=== PATIENT | male | born 1935 | race Two or more races ===

== ENCOUNTER 2018-11-13 12:16 | Inpatient (IN) | payer MEDICARE, OTHER ==
[~2018-11-13] VITALS: Ht 160 cm; Wt 64.1 kg
[~2018-11-13 12:16] MED LIST: ACETAMINOP160 MG/54 ORAL; ASPIRIN81 MG ORAL; ATIVAN0.5 MG ORAL; ATORVASTATIN CA40 MG ORAL; CALCIUM500 M3 PO; ELIQUIS2.5 MG PO; ISOSORBIDE DINIT5 MG ORAL; LEVOFLOXACIN500 MG ORAL; MIRTAZAPINE7.5 MG ORAL; MULTIPLE VITAM1 EAC6 PO; PHENYTOIN100 MG/4 M ORAL; PROTONIX40 MG ORAL; TAMSULOSIN HCL0.4 MG ORAL
--- NOTE | 2018-11-13 12:40 | NUR ---
ED Nurse Note:pt. was BIBA from SNF due to coffie ground emesis, VSS, pt is nonverbal not alert but arosable, placed on diagnostic cardiac sonographer,iv fluids are given, skin is intact
--- NOTE | 2018-11-13 12:42 | Emergency Room Report ---
History of Present Illness General Chief Complaint: Vomiting Source: Medical Record, EMS Present Illness HPI This patient is brought in by EMS from a [facility] facility. Patient has a history of CVA with hemiplegia. He has multiple chronic medical problems to include dementia, depression, COPD, GERD. The patient is nonverbal at baseline. He presents for an episode of coffee-ground emesis. Is no other history of present illness available. Allergies: Coded Allergies: No Known Allergies (Unverified , 02/29/16) Patient History Past Medical History: see triage record, NE, CAD, COPD, GERD, CVA/TIA, dementia Social History: Denies: smoking, alcohol use, drug use Reviewed Nursing Documentation: PMH: Agreed; PSxH: Agreed Nursing Documentation-PMH Hx Cardiac Problems: Yes Hx COPD: Yes Hx Cancer: No Hx Gastrointestinal Problems: No Hx Cerebrovascular Accident: Yes - left side weakness Hx Seizures: Yes Review of Systems All Other Systems: limited Physical Exam Vital Signs Date Time Temp Pulse Resp B/P (MAP) Pulse Ox O2 Delivery O2 Flow Rate FiO2 11/13/18 12:10 98.1 120 20 112/59 (76) 97 Room Air Sp02 EP Interpretation: reviewed, normal General Appearance: no apparent distress, alert, GCS 15, non-toxic, Chronically Ill Head: normocephalic, atraumatic ENT: normal pharynx, no angioedema Neck: normal inspection Respiratory: chest non-tender, lungs clear, no respiratory distress, no retraction, no accessory muscle use, speaking full sentences, other - Diminished BS bilaterally Cardiovascular #1: no edema, tachycardia, systolic murmur Gastrointestinal: soft, non-distended, no guarding, no rebound, other - G-tube Rectal: deferred Musculoskeletal: back normal, other - At baseline Neurologic: alert, other - At baseline, hx of CVA w/ hemiplegia Psychiatric: depressed affect Skin: other - See RN skin exam Medical Decision Making Diagnostic Impression: Primary Impression: Elevated troponin Additional Impressions: Coffee ground emesis Junctional rhythm ER Course This patient presents from a [facility] facility for concern of coffee- ground emesis. There was no further episodes observed here in the emergency department. The patient did have an elevated troponin. The patient was not anemic. Patient at baseline is chronically ill. It is difficult to assess whether this patient truly has an upper GI bleed. Patient was also noted to be in a junctional rhythm versus a first-degree AV block with a buried P wave. There was no pathologic arrhythmia in the emergency department. Patient is admitted for further monitoring, evaluation and treatment. Laboratory Tests Test 11/13/18 12:00 11/13/18 12:40 Sodium Level 137 MMOL/L (136-145) Potassium Level 5.2 MMOL/L (3.5-5.1) H Chloride Level 100 MMOL/L (98-107) Carbon Dioxide Level 22 MMOL/L (21-32) Anion Gap 15 mmol/L (5-15) Blood Urea Nitrogen 20 mg/dL (7-18) H Creatinine 0.9 MG/DL (0.55-1.30) Estimate Glomerular Filtration Rate mL/min (>60) Glucose Level 101 MG/DL (74-106) Calcium Level 9.4 MG/DL (8.5-10.1) Total Bilirubin 0.7 MG/DL (0.2-1.0) Aspartate Amino Transferase (AST) 50 U/L (15-37) H Alanine Aminotransferase (ALT) 42 U/L (12-78) Alkaline Phosphatase 184 U/L (46-116) H Troponin I 0.061 ng/mL (0.000-0.056) Total Protein 9.1 G/DL (6.4-8.2) H Albumin 4.0 G/DL (3.4-5.0) Globulin 5.1 g/dL Albumin/Globulin Ratio 0.8 (1.0-2.7) L Lipase 313 U/L (73-393) White Blood Count 11.8 K/UL (4.8-10.8) H Red Blood Count 5.51 M/UL (4.70-6.10) Hemoglobin 16.5 G/DL (14.2-18.0) Hematocrit 50.7 % (42.0-52.0) Mean Corpuscular Volume 92 FL (80-99) Mean Corpuscular Hemoglobin 29.8 PG (27.0-31.0) Mean Corpuscular Hemoglobin Concent 32.5 G/DL (32.0-36.0) Red Cell Distribution Width 13.9 % (11.6-14.8) Platelet Count 225 K/UL (150-450) Mean Platelet Volume 6.8 FL (6.5-10.1) Neutrophils (%) (Auto) % (45.0-75.0) Lymphocytes (%) (Auto) % (20.0-45.0) Monocytes (%) (Auto) % (1.0-10.0) Eosinophils (%) (Auto) % (0.0-3.0) Basophils (%) (Auto) % (0.0-2.0) Differential Total Cells Counted 100 Neutrophils % (Manual) 87 % (45-75) H Lymphocytes % (Manual) 6 % (20-45) L Monocytes % (Manual) 2 % (1-10) Eosinophils % (Manual) 1 % (0-3) Basophils % (Manual) 1 % (0-2) Band Neutrophils 3 % (0-8) Platelet Estimate Adequate Platelet Morphology Normal Red Blood Cell Morphology Normal Prothrombin Time 10.6 SEC (9.30-11.50) Prothrombin Time INR 1.0 (0.9-1.1) PTT 23 SEC (23-33) Urine Color Yellow Urine Appearance Cloudy Urine pH 7 (4.5-8.0) Urine Specific Hertel 1.015 (1.005-1.035) Urine Protein 1+ (NEGATIVE) H Urine Glucose (UA) Negative (NEGATIVE) Urine Ketones Negative (NEGATIVE) Urine Blood 5+ (NEGATIVE) H Urine Nitrite Negative (NEGATIVE) Urine Bilirubin Negative (NEGATIVE) Urine Urobilinogen 1 MG/DL (0.0-1.0) H Urine Leukocyte Esterase 1+ (NEGATIVE) H Urine RBC Tntc /HPF (0 - 0) H Urine WBC 5-10 /HPF (0 - 0) H Urine Squamous Epithelial Cells Occasional /LPF Urine Amorphous Sediment Many /LPF (NONE) H Urine Bacteria Few /HPF (NONE) EKG Diagnostic Results Rate: tachycardiac Rhythm: other - Junctional vs 1st degree AV block with buried p-waves. ST Segments: no acute changes Rhythm Strip Diag. Results EP Interpretation: yes Rate: 110's Rhythm: other - 1st degree AV block vs junctional rhythm. Chest X-Ray Diagnostic Results Chest X-Ray Diagnostic Results : Chest X-Ray Ordered: Yes # of Views/Limited/Complete: 1 View Indication: Other EP Interpretation: Yes Interpretation: no acute cardiopulmonary disease Impression: No acute disease Electronically Signed by: Loretta Stein DO. Last Vital Signs Date Time Temp Pulse Resp B/P (MAP) Pulse Ox O2 Delivery O2 Flow Rate FiO2 11/13/18 12:10 98.1 120 20 112/59 (76) 97 Room Air Disposition: ADMITTED INPATIENT Condition: Serious Loretta Stein DO Nov 13, 2018 12:42
[2018-11-13] MEDS ORDERED: Ipratropium 0.02% Inh Soln 2.5ml UD HHN ONE (12:45)
[2018-11-13] MEDS ORDERED: Albuterol ud Inhalation HHN ONE (12:45)
--- NOTE | 2018-11-13 12:52 | NUR ---
ED Nurse Note:blood and urine sent to labs
[2018-11-13 12:57] LABS: ANION GAP 15 mmol/L (5-15); BLOOD UREA NITROGEN 20 mg/dL (7-18); CALCIUM 9.4 MG/DL (8.5-10.1); CARBON DIOXIDE 22 MMOL/L (21-32); CHLORIDE 100 MMOL/L (98-107); CREATININE 0.9 MG/DL (0.55-1.30); POTASSIUM 5.2 MMOL/L (3.5-5.1); SODIUM 137 MMOL/L (136-145)
[2018-11-13 13:02] LABS: APPEARANCE,URINE CLOUDY; BILIRUBIN, URINE NEGATIVE (NEGATIVE); GLUCOSE, URINE (UA) NEGATIVE (NEGATIVE); KETONES,URINE NEGATIVE (NEGATIVE); LEUKOCYTE ESTERASE ,URINE 1+ (NEGATIVE); NITRITE,URINE NEGATIVE (NEGATIVE); PH,URINE 7 (4.5-8.0); PROTEIN,URINE 1+ (NEGATIVE); UROBILINOGEN,URINE 1 MG/DL (0.0-1.0)
[2018-11-13 13:02] LABS: ALANINE AMINOTRANSFERASE 42 U/L (12-78); ALBUMIN/GLOBULIN RATIO 0.8 (1.0-2.7); ALKALINE PHOSPHATASE 184 U/L (46-116); ASPARTATE AMINO TRANSFERASE 50 U/L (15-37); BILIRUBIN,TOTAL 0.7 MG/DL (0.2-1.0)
[2018-11-13 13:05] LABS: COLOR,URINE YELLOW
[2018-11-13 13:08] LABS: HEMATOCRIT 50.7 % (42.0-52.0); HEMOGLOBIN 16.5 G/DL (14.2-18.0); MEAN CORPUSCULAR VOLUME 92 FL (80-99); PLATELET COUNT 225 K/UL (150-450); RED BLOOD COUNT 5.51 M/UL (4.70-6.10); RED CELL DISTRIBUTION WIDTH 13.9 % (11.6-14.8); WHITE BLOOD COUNT 11.8 K/UL (4.8-10.8)
[2018-11-13 13:34] VITALS: BP 107/59
[2018-11-13] MEDS ORDERED: VITAMIN D1000 UNI1 ORAL (13:38)
[2018-11-13] MEDS ORDERED: TERBINAFINE HC250 MG GT (13:38)
[2018-11-13] MEDS ORDERED: ASCORBIC ACID500 MG GT (13:38)
[2018-11-13] MEDS ORDERED: IPRATROPIU0.2 MG/1 M HHN (13:38)
[2018-11-13] MEDS ORDERED: LEVETIRACE100 MG/1 M GT (13:38)
[2018-11-13] MEDS ORDERED: COLACE100 MG/10 GT (13:38)
[2018-11-13] MEDS ORDERED: cefTRIAXone 1 GM in NS 55 ML IVPB ONE (15:00)
--- NOTE | 2018-11-13 15:20 | Diagnostic Imaging Report ---
Indication: Dyspnea Comparison: 03/02/2016 A single view chest radiograph was obtained. Findings: Pulmonary vascular congestion is present. Lung volumes are low. Mild cardiomegaly noted. Mechanical heart valve and sternotomy noted. IMPRESSION: Pulmonary vascular congestion
[2018-11-13 15:46] VITALS: BP 116/61
--- NOTE | 2018-11-13 15:56 | NUR ---
ED Nurse Note:called report to edgar Leahy RN, pt. taken up stairs
[2018-11-13] MEDS ORDERED: Acetaminophen 650 MG SUPP RECTAL PRN ×2 (16:30→16:45)
[2018-11-13] MEDS ORDERED: Albuterol/Ipratropium 3ml neb HHN PRN (16:30)
[2018-11-13] MEDS ORDERED: Acetaminophen 650mg/20.3ml GT PRN (16:30)
[2018-11-13] MEDS ORDERED: Ipratropium 0.02% Inh Soln 2.5ml UD HHN PRN (16:30)
[2018-11-13] MEDS ORDERED: Acetaminophen 650mg/20.3ml ORAL PRN (16:30)
--- NOTE | 2018-11-13 16:49 | NUR ---
nurse note received patient @ 1620. Non verbal, non-alert. Makes noise to sternal rub. Does not follow command. Breathing even and unlabored on 2L NC. Skin intact, non-blanching sacrum and BL heels noted. Perform skin assessment with RN Jaylin. GT present. NPO. temp 100.3, Dr. Ramires aware. No belongings. Incontinent. Provided comfort measures. Call light in reach.
[2018-11-13 16:54] VITALS: BP 113/69
--- NOTE | 2018-11-13 19:50 | NUR ---
NURSE NOTES: Pt received- Non verbal, non-alert. Makes noise to sternal rub. Does not follow commands. Breathing even and unlabored on 2L NC. Skin intact, non-blanching sacrum and BL heels noted. GT present- clamped. Incontinent- will insert catheter as ordered. Provided comfort measures. Call light in reach.
--- NOTE | 2018-11-13 20:00 | History and Physical Report ---
DATE OF ADMISSION: 11/13/2018 CHIEF COMPLAINT: Coffee-ground emesis. HISTORY OF PRESENT ILLNESS: This is a 83-year-old male under the care of Dr. Susanne Robles at [facility] who was sent via 911 due to coffee-ground emesis. The patient is nonverbal due to previous strokes. He was seen in the ER and admitted to my service by Dr. Susanne Robles, his primary care physician. PAST MEDICAL HISTORY: 1. Status post CVA. 2. Coronary artery disease. 3. Status post MA. 4. COPD. 5. Gastroesophageal reflux disease. 6. Organic brain syndrome. 7. Seizure disorder. MEDICATIONS: Medications from the detention, Tylenol, Eliquis, ascorbic acid, baby aspirin, atorvastatin, calcium carbonate, cholecalciferol, sodium docusate, ipratropium, isosorbide, Keppra, Levaquin, Ativan, Remeron, multivitamins, Protonix, Dilantin, tamsulosin, terbinafine. ALLERGIES: No known drug allergies. FAMILY HISTORY: Unable to obtain due to mental status. SOCIAL HISTORY: Unable to obtain due to mental status. REVIEW OF SYSTEMS: Unable to obtain due to mental status. PHYSICAL EXAMINATION: GENERAL: This is an elderly male, who is in no acute distress. VITAL SIGNS: Blood pressure 116/61, pulse 105 sinus tachycardia, respirations 18, and temperature 98.1 axillary. HEENT: Head is normocephalic and atraumatic. Pupils are equal, round, and reactive to light and accommodation. NECK: Supple. Trachea midline. There is no lymphadenopathy or thyromegaly. LUNGS: Few bilateral rhonchi. HEART: Tachycardia. S1 and S2. No rubs, murmurs, or gallops. ABDOMEN: Distended, soft, nontender. He has a G-tube. EXTREMITIES: Notable for multiple contractures. There was no clubbing, cyanosis, or edema. NEUROLOGICAL: He is obtunded. There were no gross focal findings. He has increased rigidity. LABORATORY AND ANCILLARY DATA: CBC, white count 31801, hematocrit 50.7. Chemistry, sodium 137, potassium 5.2, BUN 20, creatinine 0.9, alkaline phosphatase 184. Urinalysis, 1+ protein, 5+ blood, sediment shows too many rbc's, 5 to 10 white blood cells, many amorphous sediments. Imaging report, pulmonary vascular congestion. EKG shows a first-degree AV block with buried T-waves which looks like junctional versus third-degree AV block. ASSESSMENT: 1. Acute gastroesophagitis. 2. Rule out junctional tachycardia. 3. Status post CVA. 4. Coronary artery disease. 5. Status post MA. 6. COPD. 7. Gastroesophageal reflux disease. 8. Organic brain syndrome. 9. Seizure disorder. PLAN: 1. Keep NPO. 2. IV fluid rehydration. 3. The patient is polypharmacy so adjust the patient's medications. 4. Consider GI consult. Alissa Camarillo M.D. DR: Giovanna JOB#: [id number] CC:
[2018-11-13] MEDS: Heparin 5000 units/ml inj SUBQ SCH ×2 (21:00→21:56)
[2018-11-13] MEDS: levETIRAcetam 500mg/5ml Liquid GT SCH (21:00)
[2018-11-13 21:28] VITALS: BP 138/72
[2018-11-13] MEDS: Atorvastatin 20mg tab GT SCH (21:55)
[2018-11-13] MEDS: Tamsulosin 0.4mg cap ORAL SCH (21:55)
[2018-11-14] VITALS: BP 132/59
[2018-11-14 06:25] LABS: ANION GAP 10 mmol/L (5-15); BLOOD UREA NITROGEN 17 mg/dL (7-18); CALCIUM 8.3 MG/DL (8.5-10.1); CARBON DIOXIDE 23 MMOL/L (21-32); CHLORIDE 104 MMOL/L (98-107); CREATININE 0.8 MG/DL (0.55-1.30); POTASSIUM 3.9 MMOL/L (3.5-5.1); SODIUM 137 MMOL/L (136-145)
[2018-11-14 06:50] LABS: HEMATOCRIT 38.6 % (42.0-52.0); MEAN CORPUSCULAR VOLUME 89 FL (80-99); PLATELET COUNT 206 K/UL (150-450); RED BLOOD COUNT 4.33 M/UL (4.70-6.10); RED CELL DISTRIBUTION WIDTH 13.5 % (11.6-14.8); WHITE BLOOD COUNT 18.8 K/UL (4.8-10.8)
--- NOTE | 2018-11-14 07:13 | NUR ---
HAND-OFF: Report given to LORENE Francisco.
[2018-11-14 07:56] VITALS: BP 98/50
[2018-11-14] MEDS: Docusate 100mg/10ml Liq GT SCH (08:18)
[2018-11-14] MEDS: Phenytoin Susp 100mg/4ml GT SCH (08:19)
[2018-11-14] MEDS: Ascorbic Acid 500mg tab GT SCH (08:19)
[2018-11-14] MEDS: Heparin 5000 units/ml inj SUBQ SCH ×2 (08:19→21:00)
[2018-11-14] MEDS: levETIRAcetam 500mg/5ml Liquid GT SCH ×2 (08:19→21:00)
--- NOTE | 2018-11-14 10:36 | NUR ---
NURSE NOTES: pt awake alert, no distress. no c/o pain. call light within reach. bed in lowest position, locked.
[2018-11-14 12:00] VITALS: BP 113/58
--- NOTE | 2018-11-14 15:29 | General Progress Note ---
Assessment/Plan Assessment/Plan: GIB resolving Subjective Allergies: Coded Allergies: No Known Allergies (Unverified , 02/29/16) Subjective Confused Objective Last 24 Hour Vital Signs Date Time Temp Pulse Resp B/P (MAP) Pulse Ox O2 Delivery O2 Flow Rate FiO2 11/14/18 12:00 98.8 86 16 113/58 (76) 95 11/14/18 12:00 2.0 11/14/18 11:35 82 11/14/18 08:24 Nasal Cannula 2.0 11/14/18 08:00 2.0 11/14/18 07:56 98.8 83 16 98/50 (66) 95 11/14/18 07:33 82 11/14/18 07:31 78 20 97 Nasal Cannula 2.0 28 11/14/18 07:31 97 Nasal Cannula 2.0 28 11/14/18 04:00 91 11/14/18 04:00 2.0 11/14/18 00:00 98.8 83 16 132/59 (83) 95 11/14/18 00:00 91 11/14/18 00:00 2.0 28 11/13/18 21:28 98.9 108 16 138/72 (94) 95 11/13/18 21:00 Nasal Cannula 2.0 11/13/18 20:27 97 Nasal Cannula 2.0 28 11/13/18 20:25 99 20 97 Nasal Cannula 2.0 28 11/13/18 20:00 95 11/13/18 16:57 Nasal Cannula 2.0 11/13/18 16:54 103 11/13/18 16:54 100.3 106 20 113/69 (84) 95 11/13/18 15:55 98.1 105 18 116/61 97 Nasal Cannula 2.0 36 11/13/18 15:46 98.1 105 18 116/61 97 Nasal Cannula 2.0 36 Intake and Output 11/13/18 11/14/18 19:00 07:00 Intake Total 75 ml 850 ml Balance 75 ml 850 ml Intake IV Total 75 ml 850 ml # Voids 2 3 Laboratory Tests 11/14/18 05:20: White Blood Count 18.8#H, Red Blood Count 4.33L, Hemoglobin 13.0L, Hematocrit 38.6L, Mean Corpuscular Volume 89, Mean Corpuscular Hemoglobin 30.1, Mean Corpuscular Hemoglobin Concent 33.7, Red Cell Distribution Width 13.5, Platelet Count 206, Mean Platelet Volume 6.7, Neutrophils (%) (Auto) , Lymphocytes (%) ( Auto) , Monocytes (%) (Auto) , Eosinophils (%) (Auto) , Basophils (%) (Auto) , Differential Total Cells Counted 100, Neutrophils % (Manual) 76H, Lymphocytes % (Manual) 4L, Monocytes % (Manual) 3, Eosinophils % (Manual) 1, Basophils % ( Manual) 1, Band Neutrophils 15H, Platelet Estimate Adequate, Platelet Morphology Normal, Red Blood Cell Morphology Normal, Sodium Level 137, Potassium Level 3.9, Chloride Level 104, Carbon Dioxide Level 23, Anion Gap 10, Blood Urea Nitrogen 17, Creatinine 0.8, Estimat Glomerular Filtration Rate , Glucose Level 103, Calcium Level 8.3L, Magnesium Level 1.8, Phenytoin (Dilantin ) Level < 0.5L 11/14/18 08:11: Arterial Blood pH 7.424, Arterial Blood Partial Pressure CO2 34.6L, Arterial Blood Partial Pressure O2 78.6, Arterial Blood HCO3 22.1, Arterial Blood Oxygen Saturation 95.5, Arterial Blood Base Excess -1.6, Jag Test Positive Height (Feet): 5 Height (Inches): 3.00 Weight (Pounds): 141 Objective CV RR Lungs CTA Abd SNT. BS + E No CCE Alissa Camarillo MD Nov 14, 2018 15:29
--- NOTE | 2018-11-14 15:32 | NUR ---
RD ASSESSMENT & RECOMMENDATIONS SEE CARE ACTIVITY FOR COMPLETE ASSESSMENT DAILY ESTIMATED NEEDS: Needs based on cardiac, possible wound/ 58kg 25-30 kcals/kg 7205-5494 total kcals 1.25-1.5 g protein/kg 72-87 g total protein 25-30 mL/kg 6821-5632 total fluid mLs NUTRITION DIAGNOSIS: Swallowing difficulty R/T dysphagia as evidenced by PEG dep, admitted w/ c/o coffee ground emesis, NPO at this time. CURRENT TF:NPO ENTERAL NUTRITION RECOMMENDATIONS: Jevity 1.2 @ 60ml/hr x 22 hrs to provide 1320ml, 1584kcal, 73g prot, 1065ml free water * As medically appropriate, resume TF * Initiate Jevity 1.2 @ 30ml/hr x 6 hrs, advance 10ml q 4-6 hrs as tolerated to goal rate * Hold 1 hr before and after Dilantin med * HOB over 30 degrees/ water flush per MD. ADDITIONAL RECOMMENDATIONS: * Per SNF record, ht is 60", wt is 128lbs (10/16/18) * Calibrated bedscale wt, weekly wt monitoring * Monitor NPO status, ability to resume TF * Monitor lytes w/ TF, replete as needed * Consider WC eval for sacral wound photo
--- NOTE | 2018-11-14 15:43 | Cardiology Report ---
APPROVED REPORT EKG Measurement Heart [id number] Sinus tachycardia with first degree AV block Possible Inferior infarct, age undetermined Abnormal ECG
--- NOTE | 2018-11-14 15:47 | NUR ---
HAND-OFF: Report given to LORENE RASMUSSEN.
[2018-11-14 16:00] VITALS: BP 107/61
--- NOTE | 2018-11-14 16:07 | NUR ---
CASE MANAGEMENT:REVIEW 83 YR OLD MALE BIBA FROM [facility] CC: COFFEE GROUND EMESIS SI: UGIB. ELEVATED TROPONIN 98.0 120 20 107/59 97% ON 4L/NC WBC+11.8 K+5.2 TROPONIN(+) 0.061 IS: IV PEPCID IVF@100/HR DUONEB HHN CHEST XRAY : TO TELEMETRY
--- NOTE | 2018-11-14 19:06 | NUR ---
HAND-OFF: Report given to LORENE Castaneda. Pt is in stable condition; plan of care endorsed.
--- NOTE | 2018-11-14 19:07 | NUR ---
NURSE NOTES: Patient report received from Mery PAULSON. patient is non verbal, non-alert, and does not follow commands. Breathing even and unlabored on 2L NC. Skin intact, non-blanching sacrum and BL heels noted. GT present- clamped. Incontinent, verduzco catheter draining yellow urine. Provided comfort measures. Call light in reach. Will continue to monitor and follow plan of care.
[2018-11-14 20:00] VITALS: BP 130/72
--- NOTE | 2018-11-14 20:45 | Consultation ---
DATE OF CONSULTATION: 11/14/2018 HISTORY OF PRESENT ILLNESS: The patient is an 83-year-old male with a history of multiple medical problems, including CVA, coronary artery disease, chronic obstructive pulmonary disease, gastroesophageal reflux disease, seizure disorder, and depression, who has been admitted to the hospital due to coffee-grounds emesis. I was asked by Dr. Camarillo to see this patient. The patient is a poor historian and has been having episodes of anxiety, waxing and waning consciousness, and poor memory. PAST PSYCHIATRY HISTORY: Significant for depression, dementia, and anxiety. PAST MEDICAL HISTORY: 1. History of CVA with hemiplegia. 2. Seizure. 3. Gastroesophageal reflux disease. 4. Chronic obstructive pulmonary disease. ALLERGIES: No known drug allergies. SUBSTANCE ABUSE HISTORY: No known history of illicit drug use or alcohol. MENTAL STATUS EXAMINATION: The patient is ill-appearing, alert, and oriented to 0. Nonverbal. Mood is anxious and depressed. Affect is constricted. Congruent with mood. Thought process is concrete. Thought content, no suicidal or homicidal ideation. Cognition is impaired. ASSESSMENT: Cisco I Major depressive disorder and dementia. Cisco II Deferred. Cisco III As above. Cisco IV Low. Cisco V 10. PLAN: 1. The patient will be started on Lexapro 10 mg in the morning. 2. Provide the patient with reality orientation and supportive therapy. Tashi Pavon M.D. DR: GIOVANNA JOB#: [id number] CC:
[2018-11-14] MEDS: Tamsulosin 0.4mg cap ORAL SCH (21:00)
[2018-11-14] MEDS: Atorvastatin 20mg tab GT SCH (21:00)
[2018-11-15] VITALS: BP 108/61
[2018-11-15 04:00] VITALS: BP 115/60
--- NOTE | 2018-11-15 07:40 | NUR ---
NURSE NOTES: Report received from LORENE Castaneda. Patient responds to name/voice. In 2L NC. No S/S of breathing discomfort noticed. L FA IV intact, running at 1/2 NS @75. FC draining well. Positioned Pt. to comfort. Bed on lowest position, side rails upx2, brakes engaged, alarm on. Seizure precautions in place. Call light within easy reach.
[2018-11-15 08:00] VITALS: BP 126/67
[2018-11-15] MEDS: Heparin 5000 units/ml inj SUBQ SCH ×2 (09:00→20:29)
[2018-11-15] MEDS: Docusate 100mg/10ml Liq GT SCH (09:24)
[2018-11-15] MEDS: levETIRAcetam 500mg/5ml Liquid GT SCH ×2 (09:24→20:28)
[2018-11-15] MEDS: Phenytoin Susp 100mg/4ml GT SCH (09:25)
[2018-11-15] MEDS: Ascorbic Acid 500mg tab GT SCH (09:25)
[2018-11-15 12:00] VITALS: BP 113/68
--- NOTE | 2018-11-15 13:06 | General Progress Note ---
Assessment/Plan Assessment/Plan: GIB resolving EKG still Junctional Rhythm. Card Consulted. Subjective Allergies: Coded Allergies: No Known Allergies (Unverified , 02/29/16) Subjective Confused Objective Last 24 Hour Vital Signs Date Time Temp Pulse Resp B/P (MAP) Pulse Ox O2 Delivery O2 Flow Rate FiO2 11/15/18 09:00 Nasal Cannula 2.0 11/15/18 08:00 79 11/15/18 08:00 98.9 88 20 126/67 (86) 96 11/15/18 07:52 87 20 95 Nasal Cannula 2.0 28 11/15/18 07:52 95 Nasal Cannula 2.0 28 11/15/18 04:00 84 11/15/18 04:00 98.5 85 16 115/60 (78) 95 11/15/18 00:00 98.5 77 16 108/61 (77) 98 11/15/18 00:00 75 11/14/18 21:56 95 Nasal Cannula 2.0 28 11/14/18 21:00 Nasal Cannula 2.0 11/14/18 20:00 82 16 96 Nasal Cannula 2.0 28 11/14/18 20:00 98.5 87 16 130/72 (91) 97 11/14/18 20:00 77 11/14/18 16:00 69 11/14/18 16:00 98.1 77 20 107/61 (76) 99 11/14/18 16:00 2.0 Intake and Output 11/14/18 11/15/18 19:00 07:00 Intake Total 775 ml Output Total 600 ml 1100 ml Balance 175 ml -1100 ml Intake IV Total 775 ml Output Urine Total 600 ml 1100 ml # Voids 1 Height (Feet): 5 Height (Inches): 3.00 Weight (Pounds): 141 Objective CV RR Lungs CTA Abd SNT. BS + E No CCE Alissa Camarillo MD Nov 15, 2018 13:06
--- NOTE | 2018-11-15 14:00 | NUR ---
NURSE NOTES: Oral care done. Pt. tolerated well. applied Cavilon on sacral area and covered Optifoam for protection.
[2018-11-15 16:00] VITALS: BP 125/64
--- NOTE | 2018-11-15 19:29 | NUR ---
HAND-OFF: Report given to LORENE Corea. Patient in stable condition. No s/s of distress noted.
--- NOTE | 2018-11-15 19:42 | CDS Physician Query ---
Clarification is required for compliance, coding accuracy, and to reflect severity of illness for this patient Dear Dr. Bhardwaj Date: _11/15/18 CDS Name: Josy Presentation: This is a 83-year-old male under the care of Dr. Susanne Robles at [facility] who was sent via 911 due to coffee-ground emesis. VITAL SIGNS: Blood pressure 116/61, pulse 105 sinus tachycardia, Dx:GIB resolving Lab: HGB 16.5-->13.0 HCT 50.7-->38.6 Please clarify the specific type of anemia below, if any: Acuity []Acute []Acute on Chronic [x]Chronic Etiology [] Blood loss [] Iron deficiency [x] Anemia of chronic disease [] Unable to determine [] Other: Present on Admission: [] Yes [] No [] Clinically Undetermined Physician signature Date Please also document in your Progress Notes and/or Discharge Summary and indicate if the condition was present on admission. SUSHANT
[2018-11-15 20:00] VITALS: BP 105/72
--- NOTE | 2018-11-15 20:10 | NUR ---
NURSE NOTES: Received pt from LORENE Driver. Pt awake but nonverbal. Bed in lowest position. Call light within reach. IV site intact and running fluids. Will continue to monitor.
--- NOTE | 2018-11-15 20:15 | NUR ---
NURSE NOTES: Called and left a message with Dr. Camarillo regarding pts elevated troponin. Awaiting call back.
[2018-11-15] MEDS: Atorvastatin 20mg tab GT SCH (20:28)
[2018-11-15] MEDS: Tamsulosin 0.4mg cap ORAL SCH (20:28)
--- NOTE | 2018-11-15 21:15 | Progress Note ---
DATE: 11/15/2018 SUBJECTIVE: The patient is in bed, in no acute distress. The patient is confused, disoriented. Memory is impaired. Has episodes of anxiety. Waxing and waning consciousness. MENTAL STATUS EXAMINATION: The patient is alert and disoriented. Mood is anxious. Affect is flat. Thought process is concrete. Thought content, no suicidal or homicidal ideation. ASSESSMENT: 1. Dementia. 2. Depression. 3. Encephalopathy. PLAN: 1. The patient will be continued on current medication. 2. Provide the patient with reality orientation and supportive therapy. Tashi Pavon M.D. DR: RICARDO JOB#: [id number] CC:
[2018-11-16] VITALS: BP 120/71
[2018-11-16 04:00] VITALS: BP 151/67
--- NOTE | 2018-11-16 07:25 | NUR ---
NURSE NOTES: Received pt from LORENE Corea. Pt awake but nonverbal. Patient is on 2L NC breathing even and unlabored. patient is on gambling monitor. Bed in lowest position. Swartz is intact and patent. Call light within reach. IV site patent, intact, and running fluids. Will continue to monitor.
--- NOTE | 2018-11-16 07:30 | NUR ---
HAND-OFF: Report given to LORENE Melendez. Pt stable.
[2018-11-16 08:00] VITALS: BP 115/83
[2018-11-16] MEDS: Docusate 100mg/10ml Liq GT SCH (09:29)
[2018-11-16] MEDS: Phenytoin Susp 100mg/4ml GT SCH (09:29)
[2018-11-16] MEDS: Ascorbic Acid 500mg tab GT SCH (09:29)
[2018-11-16] MEDS: levETIRAcetam 500mg/5ml Liquid GT SCH ×2 (09:30→20:33)
[2018-11-16] MEDS: Heparin 5000 units/ml inj SUBQ SCH ×2 (09:31→20:34)
--- NOTE | 2018-11-16 09:49 | Cardiology Report ---
APPROVED REPORT EXAM: Two-dimensional and M-mode echocardiogram with Doppler and color Doppler. INDICATION Arrhythmia M-Mode DIMENSIONS IVSd1.2 (0.7-1.1cm)Left Atrium (MM)3.9 (1.6-4.0cm) LVDd4.1 (3.5-5.6cm)Aortic Root3.7 (2.0-3.7cm) PWd1.1 (0.7-1.1cm)Aortic Cusp Exc.1.6 (1.5-2.0cm) LVDs1.4 (2.5-4.0cm) PWs2.4 cm Normal left ventricular chamber size, systolic function and wall motion. Left ventricular ejection fraction estimated to be 60 %. Mild left ventricular hypertrophy. No evidence of pericardial effusion. All other cardiac chamber sizes are within normal limits. Focal aortic valve sclerosis with adequate cusp excursion. Thickened mitral valve leaflets with normal excursion. Mitral annulus and aortic root calcification. Normal pulmonic valve structure. Normal tricuspid valve structure. Subcostal views not obtainable due to G-Tube. A color flow and spectral Doppler study was performed and revealed: No aortic regurgitation. Trace mitral regurgitation. Left ventricular diastolic function could not be determined due to arrhythmia. Trace tricuspid regurgitation. Tricuspid systolic velocities suggests peak right ventricular systolic pressure of 31 mmHg. No pulmonic regurgitation present.
--- NOTE | 2018-11-16 10:19 | NUR ---
CASE MANAGEMENT:REVIEW 11/16/18 SI: GIB RESOLVING JUNCTIONAL RHYTHM. ELEVATED TROPONIN 97.5 82 18 115/83 96% ON 2L SI: IV FLAGYL Q6HRS IVF @ 75/HR LEXAPRO PO QD DILANTIN GT PREVACID GT QD KEPPRA GT Q12 FLOMAX PO QHS HEPARIN SQ Q12 : TELEMETRY STATUS DCP: FROM [facility]
--- NOTE | 2018-11-16 10:28 | NUR ---
DISCHARGE PLANNING MESSAGE LEFT FOR DR MAJOR REGARDING DISCHARGE BACK TO [facility] AWAITING RESPONSE Addendum: 11/16/18 at 1039 by HAYDER HESS LVN LVN FAXED CLINICALS TO [facility] T: [phone] F: [phone] *WAITING FOR ASSIGNED ROOM NUMBER AND OFFICIAL DISCHARGE ORDER
--- NOTE | 2018-11-16 11:33 | General Progress Note ---
Assessment/Plan Assessment/Plan: GIB resolving EKG still Junctional Rhythm. Card Consulted. No note yet. Restart TF. Subjective Allergies: Coded Allergies: No Known Allergies (Unverified , 02/29/16) Subjective Confused Objective Last 24 Hour Vital Signs Date Time Temp Pulse Resp B/P (MAP) Pulse Ox O2 Delivery O2 Flow Rate FiO2 11/16/18 09:00 Nasal Cannula 2.0 11/16/18 08:27 71 11/16/18 08:00 97.5 82 18 115/83 (94) 96 11/16/18 04:00 72 11/16/18 04:00 98.1 84 18 151/67 (95) 97 11/16/18 00:00 97.8 84 18 120/71 (87) 97 11/16/18 00:00 73 11/15/18 21:00 Nasal Cannula 2.0 11/15/18 20:00 73 11/15/18 20:00 98.2 81 18 105/72 (83) 97 11/15/18 19:21 95 Nasal Cannula 2.0 28 11/15/18 19:20 70 20 96 Nasal Cannula 2.0 28 11/15/18 16:00 98.6 74 18 125/64 (84) 97 11/15/18 16:00 77 11/15/18 12:00 77 11/15/18 12:00 98.7 83 20 113/68 (83) 99 Intake and Output 11/15/18 11/16/18 18:59 06:59 Output Total 720 ml 600 ml Balance -720 ml -600 ml Output Urine Total 720 ml 600 ml Laboratory Tests 11/15/18 19:35: Troponin I 0.068H Height (Feet): 5 Height (Inches): 3.00 Weight (Pounds): 141 Objective CV RR Lungs CTA Abd SNT. BS + E No CCE Alissa Camarillo MD Nov 16, 2018 11:33
[2018-11-16 12:00] VITALS: BP 113/63
[2018-11-16] MEDS ORDERED: 1/2 NS 1000ml IV ONE (13:33)
--- NOTE | 2018-11-16 14:00 | NUR ---
NURSE NOTES: Started Jevity 1.2 @30 ml/hr. GT is patent and dressing intact.
--- NOTE | 2018-11-16 14:09 | NUR ---
RD ASSESSMENT & RECOMMENDATIONS SEE CARE ACTIVITY FOR COMPLETE ASSESSMENT DAILY ESTIMATED NEEDS: Needs based on cardiac, possible wound/ 58kg 25-30 kcals/kg 7354-3344 total kcals 1.25-1.5 g protein/kg 72-87 g total protein 25-30 mL/kg 0609-5515 total fluid mLs NUTRITION DIAGNOSIS: Swallowing difficulty R/T dysphagia as evidenced by PEG dep, admitted w/ c/o coffee ground emesis, NPO at this time. CURRENT TF:NPO ENTERAL NUTRITION RECOMMENDATIONS: Jevity 1.2 @ 60ml/hr x 22 hrs to provide 1320ml, 1584kcal, 73g prot, 1065ml free water * As medically appropriate, resume TF * Initiate Jevity 1.2 @ 30ml/hr x 6 hrs, advance 10ml q 4-6 hrs as tolerated to goal rate * Hold 1 hr before and after Dilantin med * HOB over 30 degrees/ water flush per MD. ADDITIONAL RECOMMENDATIONS: * Per SNF record, ht is 60", wt is 128lbs (10/16/18) * Calibrated bedscale wt, weekly wt monitoring * Monitor NPO status, ability to resume TF * Monitor lytes w/ TF, replete as needed * Consider WC eval for sacral wound photo
[2018-11-16 15:49] VITALS: BP 101/70
--- NOTE | 2018-11-16 17:45 | Consultation ---
DATE OF CONSULTATION: 11/16/2018 CARDIOLOGY CONSULTATION CONSULTING PHYSICIAN: Natalie Baird M.D. REFERRING PHYSICIAN: Alissa Camarillo M.D. REASON FOR EVALUATION: Congestive heart failure and elevated troponin. HISTORY OF PRESENT ILLNESS: History of present illness taken from discussion with Dr. Madera, reviewing the chart, and discussion with the [id number] who happened to visit the patient. The patient is very unfortunate 83-year-old gentleman who is a convalescent facility resident and he was brought because of the ground coffee vomiting apparently. The patient's cardiac history significant for history of coronary artery bypass surgery approximately 12 years ago she is not sure about that, and then history of stroke about 8 years ago. He also suffered from hypertension and chronic obstructive pulmonary disease. HABITS: He used to smoke and he quit previously, she said approximately 20 years ago. There is no alcohol or drug abuse. REVIEW OF SYSTEMS: Not obtainable. The patient is noncommunicative. CURRENT MEDICATIONS: Lipitor, Lexapro, Keppra, Flomax, heparin subcutaneous, Flagyl, albuterol, Dilantin, Prevacid, vitamin C. ALLERGIES: Not reported. PHYSICAL EXAMINATION: VITAL SIGNS: Blood pressure 115/70, his heart rate is about 100 beats per minute, and he is not febrile, saturating on room air 94%. HEENT: He has facial droop and severe face deformity due to stroke. His eyes deviated to the left. He is unresponsive, not communicating, but there is no evidence of acute distress. NECK: Supple. His neck veins are elevated approximately 10 cm. His carotid upstroke is bilaterally palpable. He does have a bruit. LUNGS: Some rales, some crackles posteriorly and anteriorly, wheezing. HEART: Regular, distant. There is a systolic ejection murmur on aorta 2/6. There is S4 audible very distant. He has only S4 gallop. Midsternal scar is well healed. ABDOMEN: Soft, distended, hard to say if it is tender. The patient is not communicated. EXTREMITIES: He has deformities and contractures of his upper and lower extremities. LABORATORY AND DIAGNOSTIC DATA: EKG shows junctional tachycardia with retrograde P-wave conduction or ectopic atrial tachycardia with very long AV interval. I favor this second one because AR and RP are almost equal. There is no acute ST or T changes. Chest x-ray shows pulmonary venous congestion. Laboratory data significant for white count was 11.8 and today is 18.8. Troponin was 0.061 and now 0.068. His calcium is 8.3. The rest of the laboratories unremarkable. IMPRESSION AND RECOMMENDATION: The patient with gastrointestinal bleed and possible aspiration. His white count is elevated, it should be due to infection, potentially could be pneumonia. The patient is bedridden, demented. The patient with advanced vascular dementia. No aggressive cardiac management is indicated. However, I would suggest to give him cautiously low dose of beta-ester such as carvedilol 3.125 twice a day to slow his heart rate somewhat, although his heart rate elevation could be due to his infection and actually today his tachycardia is better and __on____ monitor that he is back to sinus rhythm. We are going to repeat the EKG and monitor him closely without any aggressive interventions. Consider starting diuretics it his blood pressure is more stable and he is treated for sepsis. Thank you very much for your consultation. Natalie Baird M.D. DR: Elver JOB#: [id number] CC: SUSHANT
--- NOTE | 2018-11-16 18:16 | Coder Physician Query ---
Clarification is required for compliance, coding accuracy, and to reflect severity of illness for this patient Dear Dr. Camarillo Date: 11/16/18 CDS Name: Oswaldo Edwards R/O Junctional Tachycardia has been documented in H&P. Upon review it is difficult to determine whether this diagnosis has been treated, ruled out or still being worked up. Patient is admitted with GI bleeding. On admission: Heart Rate range: 120-106 Progress notes documentation includes: Patient still in Junctional Rhythm. Can you please clarify the status of Junctional Tachycardia? [ ] Treated and resolved [ ] Presumed and treated [ X] Still being worked up [ ] Ruled out Present on Admission: [ X ] Yes [ ] No [ ] Clinically Undetermined Physician signature Date Please also document in your Progress Notes and/or Discharge Summary and indicate if the condition was present on admission. CINDAD
--- NOTE | 2018-11-16 19:15 | NUR ---
HAND-OFF: Report given to LORENE Connor. Patient is resting in bed.
--- NOTE | 2018-11-16 19:32 | NUR ---
NURSE NOTES: Report received from Terrell Mallory RN. Pt is resting in bed in stable condition. Pt is nonverbal at baseline. Pt does open eyes to voice and light touch. Pt is on 2L O2 via nasal cannula and breathing is even and unlabored. No acute distress noted. G-tube site and dressing are dry and intact. TF Jevity 1.2 is running at 30 cc/hr. Will recheck residual and advance as tolerated per orders. Swartz is patent and draining to gravity. Seizure precautions noted to be in place. Bed is in lowest position with brake engaged, side rails up x3, and bed alarm on. Call light and side table are placed within reach. Will continue to monitor.
[2018-11-16 20:00] VITALS: BP 123/85
[2018-11-16] MEDS: Atorvastatin 20mg tab GT SCH (20:32)
[2018-11-16] MEDS: Tamsulosin 0.4mg cap ORAL SCH (20:32)
--- NOTE | 2018-11-16 21:07 | NUR ---
NURSE NOTES: MD Baird called to request STAT EKG be done on patient and to return call with results. Orders noted and carried out. EKG to be completed now.
--- NOTE | 2018-11-16 21:22 | NUR ---
NURSE NOTES: EKG completed and placed in chart. MD Baird notified of results. No further orders at this time. Pt resting in bed in stable condition. Will continue to monitor.
--- NOTE | 2018-11-16 21:23 | NUR ---
NURSE NOTES: No residual noted from GT. Feeding rate increased to 40cc/hr. Will recheck residual and advance as tolerated.
[2018-11-17] VITALS: BP 131/56
--- NOTE | 2018-11-17 | NUR ---
NURSE NOTES: No residual noted from GT. No emesis noted. Pt is tolerating TF well. Tube feeding continued at 40cc/hr. Will continue to assess residual and increase TF as tolerated.
--- NOTE | 2018-11-17 00:30 | Progress Note ---
DATE: 11/16/2018 SUBJECTIVE: The patient is not able to be engaged. Waxing and waning consciousness. Memory impairment. Knows his name. Opens his eyes on verbal stimuli. MENTAL STATUS EXAMINATION: The patient is alert and disoriented. Mood is dysphoric. Affect is flat. Thought process, there is a paucity of thought content. Thought content, no suicidal or homicidal ideation. ASSESSMENT: Stable. PLAN: We will continue current medications. Tashi Pavon M.D. DR: MAL JOB#: [id number] CC:
--- NOTE | 2018-11-17 03:00 | NUR ---
NURSE NOTES: No residual noted from GT. No emesis noted. Pt tolerating feeding well. TF rate increased to 50 cc/hr. Goal rate is 60cc/hr. Will continue to monitor for residual and advance TF as tolerated.
[2018-11-17 04:00] VITALS: BP 104/63
--- NOTE | 2018-11-17 05:30 | NUR ---
NURSE NOTES: Some gas noted but otherwise pt is tolerating feeding well. No residual and no emesis noted. Will continue with current rate of 50 cc/hr and continue to monitor.
--- NOTE | 2018-11-17 07:19 | NUR ---
HAND-OFF: Report given to Susan Robledo RN. Pt is resting in bed in stable condition. No acute distress noted. Endorsed plan of care.
--- NOTE | 2018-11-17 07:24 | NUR ---
NURSE NOTES: Received report from LORENE Connor. Patient is resting in bed, in stable condition. No s/sx of SOB, breathing is even and unlabored, room air. Observed no presence of pain or discomfort at this time. Bed is in lowest position, brakes engaged. Call light is kept within easy reach. Will continue to monitor patient.
[2018-11-17 07:36] LABS: BASOPHILS % (AUTO) 1.1 % (0.0-2.0); HEMATOCRIT 41.9 % (42.0-52.0); HEMOGLOBIN 14.2 G/DL (14.2-18.0); LYMPHOCYTES % (AUTO) 17.1 % (20.0-45.0); MEAN CORPUSCULAR VOLUME 89 FL (80-99); MONOCYTES % (AUTO) 8.2 % (1.0-10.0); NEUTROPHILS % (AUTO) 69.6 % (45.0-75.0); PLATELET COUNT 213 K/UL (150-450); RED BLOOD COUNT 4.72 M/UL (4.70-6.10); WHITE BLOOD COUNT 5.2 K/UL (4.8-10.8)
[2018-11-17 07:54] VITALS: BP 143/73
[2018-11-17] MEDS: Heparin 5000 units/ml inj SUBQ SCH ×2 (08:22→20:23)
[2018-11-17 08:32] LABS: ANION GAP 9 mmol/L (5-15); BLOOD UREA NITROGEN 6 mg/dL (7-18); CALCIUM 8.1 MG/DL (8.5-10.1); CARBON DIOXIDE 27 MMOL/L (21-32); CHLORIDE 102 MMOL/L (98-107); CREATININE 0.7 MG/DL (0.55-1.30); POTASSIUM 2.9 MMOL/L (3.5-5.1); SODIUM 138 MMOL/L (136-145)
[2018-11-17] MEDS: Ascorbic Acid 500mg tab GT SCH (08:44)
[2018-11-17] MEDS: Docusate 100mg/10ml Liq GT SCH (08:44)
[2018-11-17] MEDS: Phenytoin Susp 100mg/4ml GT SCH (08:44)
[2018-11-17] MEDS: levETIRAcetam 500mg/5ml Liquid GT SCH ×2 (08:45→21:12)
--- NOTE | 2018-11-17 09:42 | NUR ---
NURSE NOTES: Called and informed Dr. Camarillo that patient's potassium level today is 2.9. Dr. Camarillo acknowledged and ordered Potassium Chloride 10 mEq IV x 3. Order entered, noted, and carried out. Will continue to monitor patient.
--- NOTE | 2018-11-17 11:15 | Cardiology Progress Note ---
Assessment/Plan Assessment/Plan abnormal cardiac enzyme Status post CVA. Coronary artery disease. Status post [place]. COPD. Gastroesophageal reflux disease. Organic brain syndrome. ekg sinus per reviewed echo normal lv function not communicative trop no peak no mulu to suggest coronary syndrome will repeat cv stabele Subjective ROS Limited/Unobtainable: Yes Objective Last 24 Hour Vital Signs Date Time Temp Pulse Resp B/P (MAP) Pulse Ox O2 Delivery O2 Flow Rate FiO2 11/17/18 09:00 Nasal Cannula 2.0 11/17/18 08:00 69 11/17/18 07:54 98.3 73 17 143/73 (96) 98 11/17/18 04:00 63 11/17/18 04:00 98.5 63 17 104/63 (77) 96 11/17/18 00:00 62 11/17/18 00:00 98.5 80 17 131/56 (81) 100 11/16/18 21:00 Nasal Cannula 2.0 11/16/18 20:04 71 18 97 Nasal Cannula 2.0 28 11/16/18 20:04 97 Nasal Cannula 2.0 28 11/16/18 20:00 98.9 81 18 123/85 (98) 94 11/16/18 20:00 76 11/16/18 16:57 98.4 11/16/18 15:49 98.4 79 19 101/70 (80) 96 11/16/18 15:43 68 11/16/18 12:00 97.9 65 17 113/63 (80) 95 11/16/18 11:39 70 General Appearance: no apparent distress Cardiovascular: normal rate Respiratory/Chest: lungs clear Abdomen: normal bowel sounds, non tender, soft Extremities: no swelling Intake and Output 11/16/18 11/17/18 18:59 06:59 Intake Total 700 ml Balance 700 ml Intake IV Total 550 ml Tube Feeding 150 ml # Voids 2 Laboratory Tests Test 11/17/18 06:30 White Blood Count 5.2 K/UL (4.8-10.8) Red Blood Count 4.72 M/UL (4.70-6.10) Hemoglobin 14.2 G/DL (14.2-18.0) Hematocrit 41.9 % (42.0-52.0) L Mean Corpuscular Volume 89 FL (80-99) Mean Corpuscular Hemoglobin 30.1 PG (27.0-31.0) Mean Corpuscular Hemoglobin Concent 33.9 G/DL (32.0-36.0) Red Cell Distribution Width 13.0 % (11.6-14.8) Platelet Count 213 K/UL (150-450) Mean Platelet Volume 6.8 FL (6.5-10.1) Neutrophils (%) (Auto) 69.6 % (45.0-75.0) Lymphocytes (%) (Auto) 17.1 % (20.0-45.0) L Monocytes (%) (Auto) 8.2 % (1.0-10.0) Eosinophils (%) (Auto) 4.0 % (0.0-3.0) H Basophils (%) (Auto) 1.1 % (0.0-2.0) Sodium Level 138 MMOL/L (136-145) Potassium Level 2.9 MMOL/L (3.5-5.1) L Chloride Level 102 MMOL/L (98-107) Carbon Dioxide Level 27 MMOL/L (21-32) Anion Gap 9 mmol/L (5-15) Blood Urea Nitrogen 6 mg/dL (7-18) L Creatinine 0.7 MG/DL (0.55-1.30) Estimat Glomerular Filtration Rate mL/min (>60) Glucose Level 135 MG/DL (74-106) H Calcium Level 8.1 MG/DL (8.5-10.1) L Magnesium Level 1.9 MG/DL (1.8-2.4) Fabricio Cunha MD Nov 17, 2018 11:15
[2018-11-17 12:00] VITALS: BP 142/76
--- NOTE | 2018-11-17 12:40 | General Progress Note ---
Assessment/Plan Assessment/Plan: GIB resolved EKG still Junctional Rhythm. Card Consulted.W/U in progress. Hypokalemia -corrected. Subjective Allergies: Coded Allergies: No Known Allergies (Unverified , 02/29/16) Subjective Confused Objective Last 24 Hour Vital Signs Date Time Temp Pulse Resp B/P (MAP) Pulse Ox O2 Delivery O2 Flow Rate FiO2 11/17/18 09:00 Nasal Cannula 2.0 11/17/18 08:00 69 11/17/18 07:54 98.3 73 17 143/73 (96) 98 11/17/18 04:00 63 11/17/18 04:00 98.5 63 17 104/63 (77) 96 11/17/18 00:00 62 11/17/18 00:00 98.5 80 17 131/56 (81) 100 11/16/18 21:00 Nasal Cannula 2.0 11/16/18 20:04 71 18 97 Nasal Cannula 2.0 28 11/16/18 20:04 97 Nasal Cannula 2.0 28 11/16/18 20:00 98.9 81 18 123/85 (98) 94 11/16/18 20:00 76 11/16/18 16:57 98.4 11/16/18 15:49 98.4 79 19 101/70 (80) 96 11/16/18 15:43 68 Intake and Output 11/16/18 11/17/18 18:59 06:59 Intake Total 700 ml Balance 700 ml Intake IV Total 550 ml Tube Feeding 150 ml # Voids 2 Laboratory Tests 11/17/18 06:30: White Blood Count 5.2, Red Blood Count 4.72, Hemoglobin 14.2, Hematocrit 41.9L, Mean Corpuscular Volume 89, Mean Corpuscular Hemoglobin 30.1, Mean Corpuscular Hemoglobin Concent 33.9, Red Cell Distribution Width 13.0, Platelet Count 213, Mean Platelet Volume 6.8, Neutrophils (%) (Auto) 69.6, Lymphocytes (%) (Auto) 17.1L, Monocytes (%) (Auto) 8.2, Eosinophils (%) (Auto) 4.0H, Basophils (%) ( Auto) 1.1, Sodium Level 138, Potassium Level 2.9L, Chloride Level 102, Carbon Dioxide Level 27, Anion Gap 9, Blood Urea Nitrogen 6L, Creatinine 0.7, Estimat Glomerular Filtration Rate , Glucose Level 135H, Calcium Level 8.1L, Magnesium Level 1.9 Height (Feet): 5 Height (Inches): 3.00 Weight (Pounds): 141 Objective CV RR Lungs CTA Abd SNT. BS + E No CCE Alissa Camarillo MD Nov 17, 2018 12:40
[2018-11-17 16:00] VITALS: BP 115/64
[2018-11-17] MEDS ORDERED: Tubing IV Secondary IV ONE (18:10)
[2018-11-17] MEDS ORDERED: 1/2 NS 1000ml IV ONE (18:10)
--- NOTE | 2018-11-17 19:20 | NUR ---
NURSE NOTES: Received patient from LORENE Adkins in stable condition, resting comfortably in bed, alert, not oriented, O2@2L n/c, gtube patent, no residual, F/C draining to gravity, scrotal redness, no other signs of skin impairment.IV site, L forearm, patent no s/sx of infiltration or phlebitis. Bed lowest position, brakes on, call light within reach, will continue to monitor and reassess.
--- NOTE | 2018-11-17 19:32 | NUR ---
HAND-OFF: Report given to LORENE Guaman.
[2018-11-17 20:00] VITALS: BP 141/76
[2018-11-17] MEDS: Atorvastatin 20mg tab GT SCH (21:12)
[2018-11-17] MEDS: Tamsulosin 0.4mg cap ORAL SCH (21:12)
[2018-11-18] VITALS: BP 146/92
[2018-11-18 04:00] VITALS: BP 133/63
--- NOTE | 2018-11-18 06:30 | Progress Note ---
DATE: 11/17/2018 SUBJECTIVE: The patient is in bed, no acute distress, poor cognition. The patient was seen on 11/17/2018. The patient has episodes of anxiety. The patient has been tolerating feeding tube. MENTAL STATUS EXAMINATION: The patient is alert. Mood is anxious. Affect is constricted, congruent with mood. Thought process is concrete. Thought content, no suicidal or homicidal ideation. Memory, concentration, and attention are impaired. ASSESSMENT: Stable. PLAN: We will continue current medications. We will continue to follow and readjust the medications. Tashi Pavon M.D. DR: Elayne JOB#: [id number] CC:
--- NOTE | 2018-11-18 07:15 | NUR ---
HAND-OFF: Report given to LORENE Herrmann, patient in stable condition.
--- NOTE | 2018-11-18 07:16 | NUR ---
NURSE NOTES: Received report from LORENE Guaman. The patient is resting on the bed without acute distress or shortness of breath. The patient's bed in the lowest position, call light in reach, and fall, aspiration, and seizure precaution reinforced. IV intact and patent. Will continue plan of care.
[2018-11-18 08:00] VITALS: BP 128/65
[2018-11-18] MEDS: Docusate 100mg/10ml Liq GT SCH (08:56)
[2018-11-18] MEDS: Phenytoin Susp 100mg/4ml GT SCH (08:56)
[2018-11-18] MEDS: levETIRAcetam 500mg/5ml Liquid GT SCH ×2 (08:57→21:15)
[2018-11-18] MEDS: Heparin 5000 units/ml inj SUBQ SCH ×2 (08:57→21:22)
[2018-11-18] MEDS: Ascorbic Acid 500mg tab GT SCH (08:57)
[2018-11-18 10:36] LABS: ANION GAP 5 mmol/L (5-15); BLOOD UREA NITROGEN 6 mg/dL (7-18); CALCIUM 8.1 MG/DL (8.5-10.1); CARBON DIOXIDE 30 MMOL/L (21-32); CHLORIDE 103 MMOL/L (98-107); CREATININE 0.6 MG/DL (0.55-1.30); SODIUM 138 MMOL/L (136-145)
--- NOTE | 2018-11-18 11:00 | NUR ---
NURSE NOTES: Notified Dr. Camarillo regarding potassium level of 3.0 and calcium of 8.1. Will continue to monitor the patient and will carry out the order as soon as receives it. Also notified that Troponin was 0.068 on 11/15/2018 and no follow up since then.
--- NOTE | 2018-11-18 11:30 | NUR ---
NURSE NOTES: Per Dr. Camarillo, stat Magnesium level ordered. Carried out the order. Will continue to monitor the patient.
[2018-11-18 12:00] VITALS: BP 114/53
--- NOTE | 2018-11-18 13:12 | Cardiology Progress Note ---
Assessment/Plan Assessment/Plan abnormal cardiac enzyme Status post CVA. Coronary artery disease. Status post [place]. COPD. Gastroesophageal reflux disease. Organic brain syndrome. ekg sinus echo normal lv function not communicative trop no peak no mulu to suggest coronary syndrome repeat level not doen will reorder cv stable Subjective ROS Limited/Unobtainable: Yes Objective Last 24 Hour Vital Signs Date Time Temp Pulse Resp B/P (MAP) Pulse Ox O2 Delivery O2 Flow Rate FiO2 11/18/18 12:00 98.8 71 18 114/53 (73) 96 11/18/18 12:00 67 11/18/18 09:00 Nasal Cannula 2.0 11/18/18 08:59 76 16 97 Nasal Cannula 2.0 28 11/18/18 08:59 97 Nasal Cannula 2.0 28 11/18/18 08:00 98.3 73 18 128/65 (86) 98 11/18/18 08:00 67 11/18/18 04:00 65 11/18/18 04:00 98.8 73 18 133/63 (86) 99 11/18/18 00:00 98.5 65 18 146/92 (110) 99 11/18/18 00:00 65 11/17/18 21:00 Nasal Cannula 2.0 11/17/18 20:00 66 11/17/18 20:00 98.5 69 19 141/76 (97) 99 11/17/18 19:54 96 Nasal Cannula 2.0 28 11/17/18 19:54 70 18 96 Nasal Cannula 2.0 28 11/17/18 16:00 71 11/17/18 16:00 99.0 66 17 115/64 (81) 99 Intake and Output 11/17/18 11/18/18 18:59 06:59 Intake Total 1933 ml Output Total 500 ml 1700 ml Balance -500 ml 233 ml Intake Free Water 240 ml IV Total 973 ml Tube Feeding 720 ml Output Urine Total 500 ml 1700 ml # Bowel Movements 1 1 Laboratory Tests Test 11/18/18 10:15 Sodium Level 138 MMOL/L (136-145) Potassium Level 3.0 MMOL/L (3.5-5.1) L Chloride Level 103 MMOL/L (98-107) Carbon Dioxide Level 30 MMOL/L (21-32) Anion Gap 5 mmol/L (5-15) Blood Urea Nitrogen 6 mg/dL (7-18) L Creatinine 0.6 MG/DL (0.55-1.30) Estimat Glomerular Filtration Rate mL/min (>60) Glucose Level 124 MG/DL (74-106) H Calcium Level 8.1 MG/DL (8.5-10.1) L Magnesium Level 1.8 MG/DL (1.8-2.4) Fabricio Cunha MD Nov 18, 2018 13:11
--- NOTE | 2018-11-18 14:34 | General Progress Note ---
Assessment/Plan Assessment/Plan: EKG still Junctional Rhythm. Card Consulted.W/U in progress. Hypokalemia -correct. Subjective Allergies: Coded Allergies: No Known Allergies (Unverified , 02/29/16) Subjective Confused. Has diarrheah. Objective Last 24 Hour Vital Signs Date Time Temp Pulse Resp B/P (MAP) Pulse Ox O2 Delivery O2 Flow Rate FiO2 11/18/18 12:00 98.8 71 18 114/53 (73) 96 11/18/18 12:00 67 11/18/18 09:00 Nasal Cannula 2.0 11/18/18 08:59 76 16 97 Nasal Cannula 2.0 28 11/18/18 08:59 97 Nasal Cannula 2.0 28 11/18/18 08:00 98.3 73 18 128/65 (86) 98 11/18/18 08:00 67 11/18/18 04:00 65 11/18/18 04:00 98.8 73 18 133/63 (86) 99 11/18/18 00:00 98.5 65 18 146/92 (110) 99 11/18/18 00:00 65 11/17/18 21:00 Nasal Cannula 2.0 11/17/18 20:00 66 11/17/18 20:00 98.5 69 19 141/76 (97) 99 11/17/18 19:54 96 Nasal Cannula 2.0 28 11/17/18 19:54 70 18 96 Nasal Cannula 2.0 28 11/17/18 16:00 71 11/17/18 16:00 99.0 66 17 115/64 (81) 99 Intake and Output 11/17/18 11/18/18 18:59 06:59 Intake Total 1933 ml Output Total 500 ml 1700 ml Balance -500 ml 233 ml Intake Free Water 240 ml IV Total 973 ml Tube Feeding 720 ml Output Urine Total 500 ml 1700 ml # Bowel Movements 1 1 Laboratory Tests 11/18/18 10:15: Sodium Level 138, Potassium Level 3.0L, Chloride Level 103, Carbon Dioxide Level 30, Anion Gap 5, Blood Urea Nitrogen 6L, Creatinine 0.6, Estimat Glomerular Filtration Rate , Glucose Level 124H, Calcium Level 8.1L, Magnesium Level 1.8 Height (Feet): 5 Height (Inches): 3.00 Weight (Pounds): 141 Objective CV RR Lungs CTA Abd SNT. BS + E No CCE Alissa Camarillo MD Nov 18, 2018 14:34
[2018-11-18] MEDS ORDERED: 1/2 NS 1000ml IV ONE (15:22)
[2018-11-18 16:00] VITALS: BP 124/66
--- NOTE | 2018-11-18 16:40 | NUR ---
NURSE NOTES: Per Dr. Camarillo, KCl 10mEq IVPB x3 total of KCl 30mEq IVPB in 3 hours for hypokalemia of 3.0. Carried out the order.
--- NOTE | 2018-11-18 19:21 | NUR ---
NURSE NOTES: received report from LORENE Herrmann, patient in stable condition, sleeping, responsive to stimuli, O2 n/c @2L, IV site R forearm G22 patent. intact, no s/sx of infiltration, phlebitis. F/C patent, draining to gravity. Gtube patent, site intact, bed lowest position, brakes on, call light within reach, will continue to monitor and reassess.
--- NOTE | 2018-11-18 19:23 | NUR ---
HAND-OFF: Report given to Juliana RN. The patient is resting on the bed without acute distress or shortness of breath. The patient's bed in the lowest position, call light in reach, and fall, aspiration, and seizure precaution reinforced. Endorsed plan of care.
[2018-11-18 20:00] VITALS: BP 125/90
[2018-11-18] MEDS: Tamsulosin 0.4mg cap ORAL SCH (21:15)
[2018-11-18] MEDS: Atorvastatin 20mg tab GT SCH (21:15)
[2018-11-19] VITALS: BP 117/62
[2018-11-19 04:00] VITALS: BP 121/66
[2018-11-19 07:01] LABS: ANION GAP 5 mmol/L (5-15); BASOPHILS % (AUTO) 1.2 % (0.0-2.0); BLOOD UREA NITROGEN 6 mg/dL (7-18); CALCIUM 8.3 MG/DL (8.5-10.1); CARBON DIOXIDE 30 MMOL/L (21-32); CHLORIDE 104 MMOL/L (98-107); CREATININE 0.7 MG/DL (0.55-1.30); EOSINOPHILS % (AUTO) 3.5 % (0.0-3.0); HEMOGLOBIN 14.4 G/DL (14.2-18.0); LYMPHOCYTES % (AUTO) 15.5 % (20.0-45.0); MEAN CORPUSCULAR VOLUME 90 FL (80-99); MONOCYTES % (AUTO) 7.5 % (1.0-10.0); NEUTROPHILS % (AUTO) 72.4 % (45.0-75.0); PLATELET COUNT 218 K/UL (150-450); POTASSIUM 3.3 MMOL/L (3.5-5.1); RED BLOOD COUNT 4.79 M/UL (4.70-6.10); RED CELL DISTRIBUTION WIDTH 13.4 % (11.6-14.8); SODIUM 139 MMOL/L (136-145); WHITE BLOOD COUNT 5.5 K/UL (4.8-10.8)
--- NOTE | 2018-11-19 07:06 | NUR ---
HAND-OFF: Report given to LORENE Driscoll, patient in stable condition.Endorsed plan of care.
--- NOTE | 2018-11-19 07:39 | NUR ---
NURSE NOTES: Received report from LORENE Guaman. Patient in bed resting, no active s/s cardiac, respiratory distress noticed at this time. Patient nonverbal, open eyes spontaneously, SR w/ 1st HB with HR 64. Swartz Catheter draining well to gravity, IV on right FA 22G, asymptomatic, patent, intact, IV fluid running at prescribed rate. Endorsed 30 mEq KCl given yesterday 11/18/18. Bed in lowest position, side rails upx3, padded, bed alarm on, call light within reach. Will continue to monitor.
[2018-11-19 08:00] VITALS: BP 142/72
[2018-11-19] MEDS: levETIRAcetam 500mg/5ml Liquid GT SCH ×2 (08:25→21:18)
[2018-11-19] MEDS: Ascorbic Acid 500mg tab GT SCH (08:26)
[2018-11-19] MEDS: Phenytoin Susp 100mg/4ml GT SCH (08:26)
[2018-11-19] MEDS: Heparin 5000 units/ml inj SUBQ SCH ×2 (08:27→21:20)
[2018-11-19] MEDS: Docusate 100mg/10ml Liq GT SCH (08:28)
--- NOTE | 2018-11-19 09:00 | NUR ---
NURSE NOTES: Paged Dr. Ramires regarding K level today 3.3. Awaiting for callback.
[2018-11-19 12:00] VITALS: BP 110/61
--- NOTE | 2018-11-19 15:23 | General Progress Note ---
Assessment/Plan Assessment/Plan: EKG still Junctional Rhythm. Card Consulted.W/U in progress. No significant pathology identified. Hypokalemia -correct. K still low 3.3 Subjective Allergies: Coded Allergies: No Known Allergies (Unverified , 02/29/16) Subjective Confused. Has diarrheah. Objective Last 24 Hour Vital Signs Date Time Temp Pulse Resp B/P (MAP) Pulse Ox O2 Delivery O2 Flow Rate FiO2 11/19/18 12:00 98.3 76 18 110/61 (77) 98 11/19/18 12:00 68 11/19/18 09:00 Nasal Cannula 2.0 11/19/18 08:00 71 11/19/18 08:00 98.4 74 18 142/72 (95) 99 11/19/18 07:13 96 Nasal Cannula 2.0 28 11/19/18 07:13 68 16 96 Nasal Cannula 2.0 28 11/19/18 04:00 64 11/19/18 04:00 97.9 64 17 121/66 (84) 98 11/19/18 00:00 67 11/19/18 00:00 97.5 72 17 117/62 (80) 99 11/18/18 21:00 Nasal Cannula 2.0 11/18/18 20:01 71 16 97 Nasal Cannula 2.0 28 11/18/18 20:01 96 Nasal Cannula 2.0 28 11/18/18 20:00 66 11/18/18 20:00 98.5 86 18 125/90 (102) 99 11/18/18 16:00 67 11/18/18 16:00 98.7 70 20 124/66 (85) 98 Intake and Output 11/18/18 11/19/18 18:59 06:59 Intake Total 760 ml 1474 ml Output Total 600 ml 1700 ml Balance 160 ml -226 ml Intake Free Water 300 ml IV Total 100 ml 394 ml Tube Feeding 660 ml 780 ml Output Urine Total 600 ml 1700 ml # Voids 2 # Bowel Movements 1 4 Laboratory Tests 11/19/18 06:20: White Blood Count 5.5, Red Blood Count 4.79, Hemoglobin 14.4, Hematocrit 43.0, Mean Corpuscular Volume 90, Mean Corpuscular Hemoglobin 30.1, Mean Corpuscular Hemoglobin Concent 33.6, Red Cell Distribution Width 13.4, Platelet Count 218, Mean Platelet Volume 6.0L, Neutrophils (%) (Auto) 72.4, Lymphocytes (%) (Auto) 15.5L, Monocytes (%) (Auto) 7.5, Eosinophils (%) (Auto) 3.5H, Basophils (%) ( Auto) 1.2, Sodium Level 139, Potassium Level 3.3L, Chloride Level 104, Carbon Dioxide Level 30, Anion Gap 5, Blood Urea Nitrogen 6L, Creatinine 0.7, Estimat Glomerular Filtration Rate , Glucose Level 160H, Calcium Level 8.3L, Magnesium Level 1.9 Height (Feet): 5 Height (Inches): 3.00 Weight (Pounds): 141 Objective CV RR Lungs CTA Abd SNT. BS + E No CCE Alissa Camarillo MD Nov 19, 2018 15:23
--- NOTE | 2018-11-19 15:36 | NUR ---
CASE MANAGEMENT:REVIEW 11/19/18 SI: GIB RESOLVING JUNCTIONAL RHYTHM. ELEVATED TROPONIN 98.3 76 18 110/61 98% ON 2L/NC K-3.3 SI: IV KCL Q1HRS X2 LEXAPRO GT QD DILANTIN GT QD KEPPRA GT Q12 FLOMAX GT QHS HEPARIN SQ Q12 : TELEMETRY STATUS DCP: FROM [facility]
--- NOTE | 2018-11-19 15:42 | NUR ---
DISCHARGE PLANNING FAXED CLINICALS TO [facility] LIZZY Balderrama [phone] F: [phone] PLAN IS TO CORRECT HYPOKALEMIA TODAY AND DISCHARGE IN AM
[2018-11-19 16:00] VITALS: BP 116/71
[2018-11-19] MEDS ORDERED: Sodium Chloride for KCL Premix x 2hrs IV SCH (16:00)
--- NOTE | 2018-11-19 19:51 | NUR ---
HAND-OFF: Report given to LORENE Villanueva.
--- NOTE | 2018-11-19 19:55 | NUR ---
NURSE NOTES: Received report from Woodrow Bradley RN. Patient in bed non-verbal and is arousable to verbal stimuli with tracking observed. No S/S of acute pain or discomfort noted at this time; kept clean, dry, and comfortable in bed. IV line intact and patent SL and placed on continuous cardiac monitoring per protocol. Patient is incontinent X2 with noted FC for retention, tubing intact, patent, and draining well. Currently on GTF with prescribed formula at ordered rate and is tolerating well with no A/R noted. Safety and seizure precaution in place; siderails X3 up and padded, call ligth within reach, bed in lowest position and free from clutter, brakes and alarm on at all times, and suction equipment at bedside. Needs and wants anticipated and attended, will continue plan of care and monitor for any changes noted.
[2018-11-19 20:00] VITALS: BP 102/56
[2018-11-19] MEDS: Atorvastatin 20mg tab GT SCH (21:18)
[2018-11-19] MEDS: Tamsulosin 0.4mg cap ORAL SCH (21:18)
[2018-11-20] VITALS: BP 104/55
--- NOTE | 2018-11-20 02:36 | NUR ---
NURSE NOTES: Patient in bed asleep with no S/S of distress noted at this time. Will continue to monitor.
[2018-11-20 04:00] VITALS: BP 106/76
--- NOTE | 2018-11-20 04:00 | Progress Note ---
DATE: 11/19/2018 SUBJECTIVE: The patient is lying in bed, is asleep, is arousable with verbal stimuli, and has episodes of anxiety. Waxing and waning consciousness. MENTAL STATUS EXAMINATION: Alert and disoriented. Mood is neutral. Affect is flat. Thought process, there is a paucity of thought content. Thought content, no suicidal or homicidal ideations. ASSESSMENT: 1. Anxiety. 2. Depression. PLAN: We will continue current medications. Tashi Pavon M.D. DR: Alma Delia JOB#: [id number] CC:
--- NOTE | 2018-11-20 07:25 | NUR ---
NURSE NOTES: Received report from Rebecca Blanco RN. Patient is in bed non-verbal and is alert to verbal stimuli. Patient is on 2L NC. No respiratory distress noted. No S/S of acute pain or discomfort noted at this time; kept clean, dry, and comfortable in bed. IV line intact and patent SL and placed on continuous cardiac monitoring per protocol. Patient is incontinent X2 with noted Swartz catheter for retention. Swartz catheter is intact, patent, and draining well. Patient is on Jevity 1.2 @ 60 ml/hr. and is tolerating well with 10 ml residual noted. Safety and seizure precaution in place; side rails X3 up and padded, call light within reach, bed in lowest position and free from clutter, brakes and alarm on at all times, and suction equipment at bedside. Will continue plan of care. Patient is on contact precaution.
--- NOTE | 2018-11-20 07:29 | NUR ---
HAND-OFF: Report given to Terrell Mallory RN. Patient in stable condition, endorsed plan of care.
[2018-11-20 08:00] VITALS: BP 106/47
[2018-11-20 08:30] LABS: BASOPHILS % (AUTO) 1.3 % (0.0-2.0); EOSINOPHILS % (AUTO) 7.2 % (0.0-3.0); HEMATOCRIT 42.1 % (42.0-52.0); LYMPHOCYTES % (AUTO) 27.7 % (20.0-45.0); MEAN CORPUSCULAR VOLUME 90 FL (80-99); MONOCYTES % (AUTO) 9.2 % (1.0-10.0); NEUTROPHILS % (AUTO) 54.6 % (45.0-75.0); PLATELET COUNT 245 K/UL (150-450); RED BLOOD COUNT 4.67 M/UL (4.70-6.10); RED CELL DISTRIBUTION WIDTH 13.6 % (11.6-14.8); WHITE BLOOD COUNT 4.7 K/UL (4.8-10.8)
[2018-11-20 08:45] LABS: ANION GAP 5 mmol/L (5-15); BLOOD UREA NITROGEN 7 mg/dL (7-18); CALCIUM 8.3 MG/DL (8.5-10.1); CARBON DIOXIDE 30 MMOL/L (21-32); CHLORIDE 100 MMOL/L (98-107); CREATININE 0.5 MG/DL (0.55-1.30); POTASSIUM 3.4 MMOL/L (3.5-5.1); SODIUM 135 MMOL/L (136-145)
[2018-11-20] MEDS: Docusate 100mg/10ml Liq GT SCH (09:03)
[2018-11-20] MEDS: levETIRAcetam 500mg/5ml Liquid GT SCH (09:04)
[2018-11-20] MEDS: Ascorbic Acid 500mg tab GT SCH (09:04)
[2018-11-20] MEDS: Heparin 5000 units/ml inj SUBQ SCH (09:05)
[2018-11-20] MEDS: Phenytoin Susp 100mg/4ml GT SCH (10:09)
--- NOTE | 2018-11-20 11:42 | NUR ---
DISCHARGE PLANNING PATIENT HAS BEEN ACCEPTED BACK TO [facility] ROOM 221-B MESSAGE LEFT FOR DR KNAPP REGARDING AVAILABLE BED WAITING FOR OFFICIAL DISCHARGE ORDER
[2018-11-20 12:00] VITALS: BP 108/48
--- NOTE | 2018-11-20 12:42 | NUR ---
NURSE NOTES: Spoke to Dr. Ramires about potassium 3.4. Received order.
--- NOTE | 2018-11-20 12:43 | General Progress Note ---
Assessment/Plan Assessment/Plan: EKG still Junctional Rhythm. Card Consulted.W/U in progress. No significant pathology identified. Hypokalemia -correct. K still low 3.4 DC to SNF Subjective Allergies: Coded Allergies: No Known Allergies (Unverified , 02/29/16) Subjective Confused. Has diarrheah. Objective Last 24 Hour Vital Signs Date Time Temp Pulse Resp B/P (MAP) Pulse Ox O2 Delivery O2 Flow Rate FiO2 11/20/18 12:00 98.0 73 21 108/48 (68) 98 11/20/18 09:00 Nasal Cannula 2.0 11/20/18 08:05 70 18 98 Nasal Cannula 2.0 28 11/20/18 08:05 98 Nasal Cannula 2.0 28 11/20/18 08:01 70 11/20/18 08:00 98.0 72 20 106/47 (66) 97 11/20/18 04:00 70 11/20/18 04:00 98.5 75 19 106/76 (86) 98 11/20/18 00:00 72 11/20/18 00:00 98.5 79 20 104/55 (71) 98 11/19/18 21:00 Nasal Cannula 2.0 11/19/18 20:00 71 11/19/18 20:00 98.3 78 20 102/56 (71) 98 11/19/18 16:00 69 11/19/18 16:00 98.5 77 20 116/71 (86) 98 Intake and Output 11/19/18 11/20/18 19:00 07:00 Intake Total 160 ml 720 ml Output Total 600 ml 600 ml Balance -440 ml 120 ml IV Total 100 ml Tube Feeding 60 ml 720 ml Output Urine Total 600 ml 600 ml # Bowel Movements 3 1 Laboratory Tests 11/20/18 06:30: White Blood Count 4.7L, Red Blood Count 4.67L, Hemoglobin 14.0L, Hematocrit 42.1 , Mean Corpuscular Volume 90, Mean Corpuscular Hemoglobin 29.9, Mean Corpuscular Hemoglobin Concent 33.1, Red Cell Distribution Width 13.6, Platelet Count 245, Mean Platelet Volume 6.1L, Neutrophils (%) (Auto) 54.6, Lymphocytes ( %) (Auto) 27.7, Monocytes (%) (Auto) 9.2, Eosinophils (%) (Auto) 7.2H, Basophils (%) (Auto) 1.3, Sodium Level 135L, Potassium Level 3.4L, Chloride Level 100, Carbon Dioxide Level 30, Anion Gap 5, Blood Urea Nitrogen 7, Creatinine 0.5L, Estimat Glomerular Filtration Rate , Glucose Level 101, Calcium Level 8.3L, Magnesium Level 2.1, Phenytoin (Dilantin) Level 5.6L Height (Feet): 5 Height (Inches): 3.00 Weight (Pounds): 141 Objective CV RR Lungs CTA Abd SNT. BS + E No CCE Alissa Camarillo MD Nov 20, 2018 12:43
[2018-11-20] MEDS ORDERED: Sodium Chloride for KCL Premix X 3hrs IV SCH (13:00)
--- NOTE | 2018-11-20 13:41 | NUR ---
DISCHARGE PLANNED PATIENT WILL DISCHARGE TO [facility] ROOM [address] LONGTERM T: [phone] FOR NURSE TO NURSE REPORT [facility] HAS BEEN ARRANGED FOR 1530 LEGAL COMPLIANCE OFFICER
--- NOTE | 2018-11-20 14:41 | NUR ---
RD ASSESSMENT & RECOMMENDATIONS SEE CARE ACTIVITY FOR COMPLETE ASSESSMENT DAILY ESTIMATED NEEDS: Needs based on cardiac, possible wound/ 58kg 25-30 kcals/kg 1805-3730 total kcals 1.25-1.5 g protein/kg 72-87 g total protein 25-30 mL/kg 7699-7049 total fluid mLs NUTRITION DIAGNOSIS: Swallowing difficulty R/T dysphagia as evidenced by PEG dep, on TF. CURRENT TF:Glucerna 1.2 @ 60ml/hr x 22 hrs ENTERAL NUTRITION RECOMMENDATIONS: Jevity 1.2 @ 60ml/hr x 22 hrs to provide 1320ml, 1584kcal, 73g prot, 1065ml free water * Maintain current TF * Hold 1 hr before and after Dilantin med * HOB over 30 degrees/ water flush per MD. ADDITIONAL RECOMMENDATIONS: * Per SNF record, ht is 60", wt is 128lbs (10/16/18) * Calibrated bedscale wt, weekly wt monitoring * Monitor lytes w/ TF, replete as needed * Consider WC eval for sacral wound photo * HOLD STOOL SOFTENERS : +diarrhea -> Colace given 11/18, held 11/19, given again 11/20
[2018-11-20] MEDS ORDERED: NS 500ML ONE (15:28)
--- NOTE | 2018-11-20 15:30 | NUR ---
NURSE NOTES: Gave report to French APULSON at [facility] .
[2018-11-20 16:00] VITALS: BP 102/56
--- NOTE | 2018-11-20 17:00 | NUR ---
NURSE NOTES: Swartz Catheter discontinued at 17:00. Made attempt to contact dede Subramanian, . Left voice message. Addendum: 11/20/18 at 1927 by Al Mallory RN 18:30- Spoke with dede Gill. He is aware.
--- NOTE | 2018-11-20 17:15 | Progress Note ---
DATE: 11/20/2018 SUBJECTIVE: The patient is in bed, no acute distress. Calm. The patient is confused, has episodes of anxiety. MENTAL STATUS EXAMINATION: The patient is disoriented, confused. Mood is anxious. Affect is constricted. Congruent with mood. Thought process is concrete. Thought content, no suicidal or homicidal ideation. ASSESSMENT: Dementia with behavior disturbance. PLAN: 1. The patient will be continued on current medications. 2. Provide the patient with reality orientation and supportive therapy. Tashi Pavon M.D. DR: Alma Delia JOB#: [id number] CC:
--- NOTE | 2018-11-20 17:54 | Cardiology Progress Note ---
Assessment/Plan Assessment/Plan sinus rhythm, BP stable, potassium is corrected by Dr Camarillo Subjective Subjective the patient is unresponsive, resting in bed opens his eyes but does not follow commands Objective Last 24 Hour Vital Signs Date Time Temp Pulse Resp B/P (MAP) Pulse Ox O2 Delivery O2 Flow Rate FiO2 11/20/18 16:00 98.9 89 21 102/56 (71) 98 11/20/18 12:00 98.0 73 21 108/48 (68) 98 11/20/18 11:58 78 11/20/18 09:00 Nasal Cannula 2.0 11/20/18 08:05 70 18 98 Nasal Cannula 2.0 28 11/20/18 08:05 98 Nasal Cannula 2.0 28 11/20/18 08:01 70 11/20/18 08:00 98.0 72 20 106/47 (66) 97 11/20/18 04:00 70 11/20/18 04:00 98.5 75 19 106/76 (86) 98 11/20/18 00:00 72 11/20/18 00:00 98.5 79 20 104/55 (71) 98 11/19/18 21:00 Nasal Cannula 2.0 11/19/18 20:00 71 11/19/18 20:00 98.3 78 20 102/56 (71) 98 General Appearance: other - unresponsive EENT: other Neck: no JVD Rhythm: NSR Cardiovascular: bradycardia Respiratory/Chest: crackles/rales Abdomen: non tender Neurologic: other - unresponsive with hemplegia Intake and Output 11/19/18 11/20/18 19:00 07:00 Intake Total 160 ml 720 ml Output Total 600 ml 600 ml Balance -440 ml 120 ml IV Total 100 ml Tube Feeding 60 ml 720 ml Output Urine Total 600 ml 600 ml # Bowel Movements 3 1 Laboratory Tests Test 11/20/18 06:30 White Blood Count 4.7 K/UL (4.8-10.8) L Red Blood Count 4.67 M/UL (4.70-6.10) L Hemoglobin 14.0 G/DL (14.2-18.0) L Hematocrit 42.1 % (42.0-52.0) Mean Corpuscular Volume 90 FL (80-99) Mean Corpuscular Hemoglobin 29.9 PG (27.0-31.0) Mean Corpuscular Hemoglobin Concent 33.1 G/DL (32.0-36.0) Red Cell Distribution Width 13.6 % (11.6-14.8) Platelet Count 245 K/UL (150-450) Mean Platelet Volume 6.1 FL (6.5-10.1) L Neutrophils (%) (Auto) 54.6 % (45.0-75.0) Lymphocytes (%) (Auto) 27.7 % (20.0-45.0) Monocytes (%) (Auto) 9.2 % (1.0-10.0) Eosinophils (%) (Auto) 7.2 % (0.0-3.0) H Basophils (%) (Auto) 1.3 % (0.0-2.0) Sodium Level 135 MMOL/L (136-145) L Potassium Level 3.4 MMOL/L (3.5-5.1) L Chloride Level 100 MMOL/L (98-107) Carbon Dioxide Level 30 MMOL/L (21-32) Anion Gap 5 mmol/L (5-15) Blood Urea Nitrogen 7 mg/dL (7-18) Creatinine 0.5 MG/DL (0.55-1.30) L Estimat Glomerular Filtration Rate mL/min (>60) Glucose Level 101 MG/DL (74-106) Calcium Level 8.3 MG/DL (8.5-10.1) L Magnesium Level 2.1 MG/DL (1.8-2.4) Phenytoin (Dilantin) Level 5.6 ug/mL (10-20) L Natalie Baird MD Nov 20, 2018 17:54
--- NOTE | 2018-11-20 19:01 | NUR ---
HAND-OFF: Report given to LORENE Miller. Endorsed about patient discharge to [facility] at 19:30 with [facility]. Patient is on 2L NC. Patient is alert and nonverbal. Patient has g-tube that is patent. No residual noted. Patient still has right 22g heplock and ID band. Heart monitor was discontinued. Noted urine on powerglide pad after two hours from discontinuation of verduzco. Reinforced to relay information to SNF about discontinuation verduzco. Packet is completed. Awaiting transport.
--- NOTE | 2018-11-20 19:02 | NUR ---
NURSE NOTES: Received pt from LORENE Melendez. Pt is in bed in no acute distress. Iv site intact. Bed locked in lowest position and call light within reach. Will continue with plan of care.
--- NOTE | 2018-11-20 20:10 | NUR ---
NURSE NOTES: Report given to ambulance service. Pt is awake and resting in bed in no acute distress. laboratory monitor off patient. IV d/c. No belongings. Pt discharged via [facility] to [facility].
--- NOTE | 2018-11-21 08:29 | Discharge Summary ---
Discharge Summary Discharge Summary _ DATE OF ADMISSION: 11/13/2018 DATE OF DISCHARGE: 11/20/2018 DISCHARGED BY: Dr. Camarillo REASON FOR ADMISSION: 83 years old male, resident of senior living facility, with past medical history of CVA with residual left-sided hemiplegia, coronary artery disease, status post IN, seizure disorder, COPD, GERD, dementia, presented after episode of coffee-ground emesis. Upon evaluation patient was tachycardic with heart rate 120. Troponin minimally elevated 0.061.EKG was suspicious for junctional tachycardia , read by roll finisher as a sinus tachycardia with a first-degree AV block. Potassium 5.2, BUN 20, creatinine 0.9. AST 50, ALT 42. Albumin 4.0. Mild leukocytosis WBC 11.8, hemoglobin initially 16.5, hematocrit 50.7. Urinalysis revealed +1 protein, pyuria and few bacteria. Chest x-ray demonstrated pulmonary vascular congestion. Patient subsequently admitted to telemetry floor for further management. CONSULTANTS: roll finisher Dr. Polanco psychiatrist [facility]: Patient admitted to telemetry floor for cardiac monitoring to rule out junctional tachycardia Cardiology consult was requested. Patient was kept n.p.o. and started on IV fluid rehydration. Echocardiogram revealed preserved ejection fraction of 60% with mild left ventricular hypertrophy. No evidence of pericardial effusion. No evidence of wall motion abnormality. Right ventricular systolic pressure of 31. Repeated troponin again minimally elevated 0.068. Telemetry showed sinus rhythm with first-degree AV block. Per cardiology, troponin had no peak or mulu, thus troponin pattern was not suggestive of acute coronary syndrome. Telemetry showed sinus rhythm with first-degree AV block. Per roll finisher, patient 's cardiovascular status was stable , and no further work-up was necessary. Hemoglobin and hematocrit were closely monitored with goal to keep hemoglobin above 7. Prior to discharge hemoglobin 14, hematocrit 42.1. Leukocytosis resolved, no fevers. Symptomatic care provided. Bowel regimen instituted. DVT and GI prophylaxis provided. Supplemental oxygen titrated as needed to keep pulse oximetry above 92%. Pulmonary toilet toilet via handheld nebulizing therapy provided as needed. No evidence of COPD exacerbation. Pulse oximetry stable on oxygen 2 L via nasal cannula. Renal parameters and electrolytes were closely monitored. Potassium corrected. Magnesium stable. Nephrotoxins were avoided. Seizure precaution maintained. Dilantin level initially subtherapeutic. Loading dose of Dilantin given , then maintenance doses of Dilantin and Keppra were continued. Repeated Dilantin level improved. No evidence of seizure activity while in the hospital Psychiatrist followed. Patient was continued on current medication. Reality orientation and supportive therapy provided. Patient clinically stabilized and was ready for transfer back to senior living facility for continuation of care FINAL DIAGNOSES: Episode of coffee-ground emesis, probably due to acute gastroenteritis- resolved Acute gastroenteritis - resolved Anemia of chronic disease-stable Junctional tachycardia was ruled out Abnormal cardiac enzymes Coronary artery disease , history of IN Hypokalemia -corrected Status post CVA COPD Dementia with behavioral disturbances GERD Organic brain syndrome Depression Encephalopathy DISCHARGE MEDICATIONS: See Medication Reconciliation list. DISCHARGE INSTRUCTIONS: Patient was discharged to the senior living facility. Follow up with medical doctor at the facility. I have been assigned to dictate discharge summary for this account. I was not involved in the patient's management. Sera Bacon NP Nov 21, 2018 08:29
== END 2018-11-20 20:12 | DRG 392 ==
LOC: EDBD 12:16 → EMR 13:50 → 2E 14:02 → EDBEDREQ 15:03 → 2E 15:55
DX: K52.9 Noninfective gastroenteritis and colitis, unspecified (principal); I47.1 Supraventricular tachycardia; I69.359 Hemiplegia and hemiparesis following cerebral infarction affecting unspecified side; F03.91 Unspecified dementia, unspecified severity, with behavioral disturbance; G93.40 Encephalopathy, unspecified; F32.9 Major depressive disorder, single episode, unspecified; F09 Unspecified mental disorder due to known physiological condition; D63.8 Anemia in other chronic diseases classified elsewhere; I25.2 Old myocardial infarction; J44.9 Chronic obstructive pulmonary disease, unspecified; K21.9 Gastro-esophageal reflux disease without esophagitis; I25.10 Atherosclerotic heart disease of native coronary artery without angina pectoris; G40.909 Epilepsy, unspecified, not intractable, without status epilepticus; E87.6 Hypokalemia; Z79.01 Long term (current) use of anticoagulants; Z79.82 Long term (current) use of aspirin; I44.0 Atrioventricular block, first degree
CPT/HCPCS: 36415; 36600; 71045; 80048; 80053; 80185; 81003; 82803; 83690; 83735; 84484; 85007; 85025; 85610; 85730; 86850; 86900; 86901; 87081; 93005; 93306; 94640; 94664; 96361; 96365; 96375; 99285

== ENCOUNTER 2019-08-19 16:52 | Inpatient (IN) | payer MEDICARE, OTHER ==
[2019-08-19] VITALS (8 sets, daily range): BP systolic 114–191; BP diastolic 59–106
[~2019-08-19] VITALS: Ht 172.7 cm; Wt 73.9 kg
[~2019-08-19 16:52] MED LIST changes: +ASCORBIC ACID500 MG GT; +COLACE100 MG/10 GT; +IPRATROPIU0.2 MG/1 M HHN; +LEVETIRACE100 MG/1 M GT; +TERBINAFINE HC250 MG GT; +VITAMIN D1000 UNI1 ORAL
--- NOTE | 2019-08-19 17:00 | NUR ---
ED Nurse Note: Patient brought in by ambulance from [facility] due to fever, low pulse oximetry reading on room air, it is 94% on room air and tachypnea. Patient is on antibiotics. patient is non-verbal and does not respond to painful stimuli. Tachypnea with shallow breathing noted. Patient hot to touch. No facial grimacing or moaning noted. Placed patient on electronic device monitor. Sinus tachycardia ~ 134 noted and ERMD made aware. Bed in lowest position.
--- NOTE | 2019-08-19 17:15 | NUR ---
ED Nurse Note: Report given to LORENE Dill by EMS.
--- NOTE | 2019-08-19 17:26 | Emergency Room Report ---
History of Present Illness General Chief Complaint: Fever Source: Medical Record, EMS Present Illness HPI Disclaimer: Please note that this report is being documented using [employer] technology. This can lead to erroneous entry secondary to incorrect interpretation by the dictating instrument. HPI: 83-year-old male with history of CVA with residual left-sided hemiplegia, CAD status post OK, COPD, dementia nonverbal at baseline, seizure disorder presents for evaluation of fevers, cough. Symptoms present several days. Patient is not able to provide any significant history given his nonverbal status and severe dementia. According to EMS he has had worsening shortness of breath and cough with pulse oximetry dropping to the low 90s. Fevers around 101 degrees taken orally for the past 2 days. He is full code. No reported emesis. No reported diarrhea. PMH: CVA, CAD, COPD, dementia, GERD, seizure disorder PSH: Reviewed Allergies: None listed in medical chart Social Hx: Reviewed Allergies: Coded Allergies: No Known Allergies (Unverified , 02/29/16) COVID-19 Screening Contact w/high risk pt: Yes Recent Travel to affected area: No Experienced COVID-19 symptoms?: Yes COVID-19 symptoms experienced: Fever (T>100.4F or >38C), Shortness of Breath Nursing Documentation-PMH Past Medical History: No History, Except For Hx Cardiac Problems: No Hx COPD: Yes Hx Cancer: No Hx Gastrointestinal Problems: Yes - GT Hx Neurological Problems: Yes Hx Cerebrovascular Accident: Yes Hx Seizures: Yes Review of Systems All Other Systems: limited - Nonverbal Physical Exam Vital Signs Date Time Temp Pulse Resp B/P (MAP) Pulse Ox O2 Delivery O2 Flow Rate FiO2 08/19/19 16:59 101.5 132 32 112/78 (89) 94 Room Air General: Awake, nonverbal, febrile HEENT: NC/AT. EOMI. Cardiovascular: Tachycardic. S1 and S2 normal. No murmur appreciated Resp: Increased work of breathing with tachypnea. No cough or wheezing Abdomen: Abdomen is soft, nondistended. PEG in place Skin: Intact. No abrasions, laceration or rash over the exposed skin MSK: No obvious deformity. Neuro: Awake, moaning incomprehensively, nonverbal. Procedures Critical Care Time Critical Care Time Total critical care time: Approximately 45 minutes Due to a high probability of clinically significant, life threatening deterioration, the patient required the highest level of preparedness to intervene emergently and I personally spent this critical care time directly and personally managing the patient. This critical care time included obtaining a history, examining the patient, pulse oximetry, ordering and reviewing studies , ordering treatments, evaluating response to treatment and updating management plan as needed, frequent reassessment and discussion with other providers as well as arranging for ultimate disposition. This critical to care time was performed to assess and manage the high probability of life-threatening deterioration that could result in multiorgan failure. This critical care time is separate from the separately billable procedures and treating other patients. Central Line Central Line : Consent: Emergent Central Line Lumen: triple Maximal Sterile Barrier Tech: yes cap, yes mask, yes sterile gown, yes sterile gloves, yes large sterile sheet, yes hand hygiene, yes chlorhexidine prep Central Line Postion: internal jugular (R) Complications: none Central Line Post Position: sutured, good blood return, position confirmed w / CXR Attempts: One Patient Tolerated: Well Complications: None Intubation Intubation : Consent: Emergent Intubation Method: orotracheal Tube Size (cm): 7.5 Medications: Etomidate, Rocuronium Breath Sounds after Intubation: equal Intubation Complications: no complications Post Intubation Xray: Yes Progress/Xray Impression: Endotracheal tube in appropriate position Attempts: One Patient Tolerated: Well Complications: None Medical Decision Making Diagnostic Impression: Primary Impression: Suspected 2019 novel coronavirus infection Additional Impression: Respiratory failure ER Course This is a 83-year-old male with multiple medical conditions presenting from senior care facility for evaluation of fevers, shortness of breath and cough for the past 3 days. Differential includes was not limited to upper respiratory syndrome, pneumonia, bronchitis, influenza, COVID-19, other viral syndrome, GERD, ACS to name a few. Given his symptoms, respiratory infection, most likely viral, would be most consistent. Patient is high risk for COVID-19 was tested at his nursing facility on 08/15. Results typically result in 5 days- will await test results. We will also send a broad metabolic infectious work-up , order chest x-ray. He will be placed in respiratory isolation require admission. Patient is tachypneic, tachycardic and has increased work of breathing. Contacted family who stated that he remains a full code. He was intubated for respiratory failure using glide scope on first attempt without complications. A right internal jugular line was placed. He will be admitted to the ICU in critical condition. Laboratory Tests Test 08/19/19 17:30 08/19/19 18:15 White Blood Count 4.7 K/UL (4.8-10.8) L Red Blood Count 4.71 M/UL (4.70-6.10) Hemoglobin 14.9 G/DL (14.2-18.0) Hematocrit 42.6 % (42.0-52.0) Mean Corpuscular Volume 90 FL (80-99) Mean Corpuscular Hemoglobin 31.6 PG (27.0-31.0) H Mean Corpuscular Hemoglobin Concent 34.9 G/DL (32.0-36.0) Red Cell Distribution Width 12.1 % (11.6-14.8) Platelet Count 172 K/UL (150-450) Mean Platelet Volume 5.9 FL (6.5-10.1) L Neutrophils (%) (Auto) 77.5 % (45.0-75.0) H Lymphocytes (%) (Auto) 12.4 % (20.0-45.0) L Monocytes (%) (Auto) 9.1 % (1.0-10.0) Eosinophils (%) (Auto) 0.1 % (0.0-3.0) Basophils (%) (Auto) 1.0 % (0.0-2.0) Sodium Level 130 MMOL/L (136-145) L Potassium Level 4.5 MMOL/L (3.5-5.1) Chloride Level 94 MMOL/L (98-107) L Carbon Dioxide Level 32 MMOL/L (21-32) Anion Gap 4 mmol/L (5-15) L Blood Urea Nitrogen 18 mg/dL (7-18) Creatinine 0.6 MG/DL (0.55-1.30) Estimated Glomerular Filtration Rate > 60 mL/min (>60) Glucose Level 281 MG/DL (74-106) H Lactic Acid Level 2.10 mmol/L (0.4-2.0) H Calcium Level 8.2 MG/DL (8.5-10.1) L Total Bilirubin 0.3 MG/DL (0.2-1.0) Aspartate Amino Transferase (AST) 72 U/L (15-37) H Alanine Aminotransferase (ALT) 35 U/L (12-78) Alkaline Phosphatase 203 U/L (46-116) H Total Creatine Kinase 835 U/L (26-308) H Creatine Kinase MB 0.6 NG/ML (0.0-3.6) Creatine Kinase MB Relative Index 0.0 Troponin I 0.205 ng/mL (0.000-0.056) Pro-B-Type Natriuretic Peptide 2911 pg/mL (0-125) H Total Protein 7.5 G/DL (6.4-8.2) Albumin 2.5 G/DL (3.4-5.0) L Globulin 5.0 g/dL Albumin/Globulin Ratio 0.5 (1.0-2.7) L Urine Color Yellow Urine Appearance Clear Urine pH 7 (4.5-8.0) Urine Specific [place] 1.010 (1.005-1.035) Urine Protein 3+ (NEGATIVE) H Urine Glucose (UA) 3+ (NEGATIVE) H Urine Ketones Negative (NEGATIVE) Urine Blood 1+ (NEGATIVE) H Urine Nitrite Negative (NEGATIVE) Urine Bilirubin Negative (NEGATIVE) Urine Urobilinogen 1 MG/DL (0.0-1.0) H Urine Leukocyte Esterase Negative (NEGATIVE) Urine RBC 0-2 /HPF (0 - 0) H Urine WBC 0 /HPF (0 - 0) Urine Squamous Epithelial Cells None /LPF (NONE/OCC) Urine Bacteria None /HPF (NONE) Microbiology Date/Time Source Procedure Growth Status 08/19/19 18:30 Nasal Nares - Final Complete 08/19/19 18:30 Nasal Nares - Final Complete EKG Diagnostic Results EKG Time: 17:16 Rate: tachycardiac Other Impression Sinus tachycardia, normal axis, no obvious ST segment changes. Inferior Q waves Rhythm Strip Diag. Results Rhythm Strip Time: 17:16 EP Interpretation: yes Rate: 130s Chest X-Ray Diagnostic Results Chest X-Ray Diagnostic Results : Chest X-Ray Ordered: Yes # of Views/Limited/Complete: 1 View Indication: Shortness of Breath EP Interpretation: Yes Interpretation: other - Bilateral vascular congestion. Possible infiltrate right middle lobe and left lower lobe. Cannot visualize the left CVA, right internal jugular line in appropriate position. Endotracheal tube in appropriate position. Impression: Other - Bilateral vascular congestion and possible infiltrate. Endotracheal tube above the darline. Right central line projecting over the right atrium Electronically Signed by: Electronically signed by Dr. Tristin Schwab Reevaluation Time: 21:00 Last Vital Signs Date Time Temp Pulse Resp B/P (MAP) Pulse Ox O2 Delivery O2 Flow Rate FiO2 08/19/19 16:59 101.5 132 32 112/78 (89) 94 Room Air Reevaluation Impression Sepsis reevaluation: I, Dr. Tristin Schwab, reevaluated the patient at 2100 Capillary refill: Less than 2 seconds MAP: 128 Heart rate: 124 Respiratory rate: 26 Initial Lactate: 2.2 Repeat Lactate: 1.8 No signs of fluid overload Disposition: ADMITTED INPATIENT Condition: Critical Referrals: NON PHYSICIAN (PCP) Tristin Schwab MD Aug 19, 2019 17:26
[2019-08-19] MEDS ORDERED: Acetaminophen 650 MG SUPP RECTAL ONE (17:30)
[2019-08-19] MEDS ORDERED: Azithromycin 500 MG in NS 275 ML IV ONE (18:00)
[2019-08-19] MEDS ORDERED: cefTRIAXone 1 GM in NS 55 ML IVPB ONE (18:00)
--- NOTE | 2019-08-19 18:00 | NUR ---
ED Nurse Note: Spoke to Dr Schwab about fact that pt had COV swab on FRI at SNF. Sumeet panda called and confirmed swab was completed and results are pending.
--- NOTE | 2019-08-19 18:06 | NUR ---
HAND-OFF: Report given to Anthony Tan RN.
[2019-08-19 18:16] LABS: ANION GAP 4 mmol/L (5-15); BLOOD UREA NITROGEN 18 mg/dL (7-18); CALCIUM 8.2 MG/DL (8.5-10.1); CARBON DIOXIDE 32 MMOL/L (21-32); CHLORIDE 94 MMOL/L (98-107); CREATININE 0.6 MG/DL (0.55-1.30); POTASSIUM 4.5 MMOL/L (3.5-5.1); SODIUM 130 MMOL/L (136-145)
--- NOTE | 2019-08-19 18:20 | NUR ---
ED Nurse Note: Patient opens eyes spontaneously, responds to painful stimuli, productive cough noted. Performed oral suction. Patient maintaining pulse oximetry reading > 94% on room air. Maintained droplet precaution. Bed in lowest position.
[2019-08-19 18:21] LABS: EOSINOPHILS % (AUTO) 0.1 % (0.0-3.0); HEMATOCRIT 42.6 % (42.0-52.0); HEMOGLOBIN 14.9 G/DL (14.2-18.0); LYMPHOCYTES % (AUTO) 12.4 % (20.0-45.0); MEAN CORPUSCULAR VOLUME 90 FL (80-99); MONOCYTES % (AUTO) 9.1 % (1.0-10.0); NEUTROPHILS % (AUTO) 77.5 % (45.0-75.0); PLATELET COUNT 172 K/UL (150-450); RED BLOOD COUNT 4.71 M/UL (4.70-6.10); RED CELL DISTRIBUTION WIDTH 12.1 % (11.6-14.8); WHITE BLOOD COUNT 4.7 K/UL (4.8-10.8)
[2019-08-19 18:29] LABS: ALANINE AMINOTRANSFERASE 35 U/L (12-78); ALBUMIN 2.5 G/DL (3.4-5.0); ALBUMIN/GLOBULIN RATIO 0.5 (1.0-2.7); ALKALINE PHOSPHATASE 203 U/L (46-116); ASPARTATE AMINO TRANSFERASE 72 U/L (15-37); BILIRUBIN,TOTAL 0.3 MG/DL (0.2-1.0); CKMB 0.6 NG/ML (0.0-3.6); CREATINE KINASE 835 U/L (26-308)
[2019-08-19] MEDS ORDERED: Etomidate 40mg/20ml Inj IV ONE (19:00)
[2019-08-19] MEDS ORDERED: Rocuronium Bromide 50mg/5ml Inj IV ONE (19:00)
[2019-08-19 19:04] LABS: APPEARANCE,URINE CLEAR; BILIRUBIN, URINE NEGATIVE (NEGATIVE); GLUCOSE, URINE (UA) 3+ (NEGATIVE); KETONES,URINE NEGATIVE (NEGATIVE); LEUKOCYTE ESTERASE ,URINE NEGATIVE (NEGATIVE); NITRITE,URINE NEGATIVE (NEGATIVE); PH,URINE 7 (4.5-8.0); PROTEIN,URINE 3+ (NEGATIVE); UROBILINOGEN,URINE 1 MG/DL (0.0-1.0)
[2019-08-19 19:05] LABS: COLOR,URINE YELLOW
--- NOTE | 2019-08-19 19:14 | NUR ---
ED Nurse Note: 20mg etomidate and 100mg rucoronium pushed. ERMD and RT at bedside.
--- NOTE | 2019-08-19 19:16 | NUR ---
HAND-OFF: Report given to Anthony Sutherland RN. intubation is being done by ERNESTINA RT, Charge nurse.
--- NOTE | 2019-08-19 19:16 | NUR ---
ED Nurse Note: patient intubated with 7.5cm tube on right side of mouth. 21cm in length.
--- NOTE | 2019-08-19 19:24 | NUR ---
ED Nurse Note: triple lumen right IJ cath inserted by ERMD. infusion fluids well. guidewire out and sharps cleared from patient.
--- NOTE | 2019-08-19 19:30 | NUR ---
ED Nurse Note: propofol infusion started at 5mcg/kg/min. infusion well in right side.
--- NOTE | 2019-08-19 19:59 | History and Physical ---
History of Present Illness General Date patient seen: Aug 19, 2019 Time patient seen: 22:00 Reason for Hospitalization: FeverAcute hypoxemic respiratory failureCAPCOPD exacerbationCOVID rule out Present Illness HPI Pt is an 83 YO M with PMHx of HLD, HTN, atherosclerotic CAD, COPD, advanced dementia, non-verbal at baseline, seizure disorder presents for fever, and cough. History is obtained from the medical record as patient is sedated and intubated. Per the medical record, patient had been experiencing severe worsening symptoms of cough and SOB over the last several days. In the ED, patient's vitals were significant for HR: 130's, F: 101.2 and tachypnic with RR of 33. He underwent endotracheal intubation given his respiratory status. Allergies: Coded Allergies: No Known Allergies (Unverified , 02/29/16) COVID-19 Screening Contact w/high risk pt: Yes Recent Travel to affected area: No Experienced COVID-19 symptoms?: Yes COVID-19 symptoms experienced: Fever (T>100.4F or >38C), Shortness of Breath Medication History Scheduled Apixaban (Eliquis), 2.5 MG PO BID, (Reported) Ascorbic Acid* (Ascorbic Acid*), 500 MG GT DAILY, (Reported) Aspirin* (Aspirin*), 81 MG ORAL DAILY, (Reported) Atorvastatin Calcium* (Atorvastatin Calcium*), 40 MG ORAL BEDTIME, (Reported) Calcium Carbonate (Calcium), 500 MG PO DAILY, (Reported) Cholecalciferol (Vitamin D3)* (Vitamin D*), 1,000 UNIT ORAL DAILY, (Reported) Docusate Sodium (Docusate Sodium), 10 MG GT DAILY, (Reported) Levetiracetam* (Levetiracetam*), 1,500 MG GT BID, (Reported) Levofloxacin (Levofloxacin*), 500 MG ORAL DAILY Lorazepam* (Ativan*), 0.5 MG ORAL THREE TIMES A DAY, (Reported) Mirtazapine* (Mirtazapine*), 7.5 MG ORAL BEDTIME, (Reported) Multivitamin (Multiple Vitamins), 1 EACH PO DAILY, (Reported) Pantoprazole* (Protonix*), 40 MG ORAL DAILY, (Reported) Phenytoin (Phenytoin*), 250 MG ORAL DAILY, (Reported) Tamsulosin Hcl (Tamsulosin Hcl*), 0.4 MG ORAL BEDTIME, (Reported) Terbinafine Hcl* (Lamisil*), 250 MG GT DAILY, (Reported) Scheduled PRN Acetaminophen* (Acetaminophen*), 650 MG ORAL Q6H PRN for Mild Pain/Temp > 100.5, (Reported) Ipratropium [place] 0.5MG/2.5ML (Ipratropium [place] 0.5MG/2.5ML), 0.5 MG HHN Q4HR PRN for Shortness of Breath, (Reported) Miscellaneous Medications Isosorbide Dinitrate (Isosorbide Dinitrate*), 30 MG ORAL, (Reported) Patient History Healthcare decision maker Resuscitation status Advanced Directive on File Review of Systems Constitutional: Reports: other Eye: Reports: other ENT: Reports: other Respiratory: Reports: other Cardiovascular: Reports: other Gastrointestinal: Reports: other Genitourinary: Reports: other Musculoskeletal: Reports: other Skin: Reports: other Psychiatric: Reports: other Neurological: Reports: other Endocrine: Reports: other Hematologic/Lymphatic: Reports: other - UNABLE TO OBTAINED. PATIENT SEDATED AND INTUBATED. Physical Exam General Appearance: other - SEDATED AND INTUBATED. Lines, tubes and drains: peripheral, central line, endotracheal tube HEENT: atraumatic Neck: normal inspection Respiratory/Chest: other - INTUBATED Cardiovascular/Chest: normal peripheral pulses, tachycardia Abdomen: normal bowel sounds, soft Extremities: normal capillary refill, non-pitting Last 24 Hour Vital Signs Date Time Temp Pulse Resp B/P (MAP) Pulse Ox O2 Delivery O2 Flow Rate FiO2 08/19/19 19:02 137 32 100 08/19/19 18:49 100.1 08/19/19 18:08 100.0 08/19/19 17:30 101.2 134 33 114/76 94 Nasal Cannula 2.0 08/19/19 17:00 132 33 Room Air 08/19/19 16:59 101.5 132 32 112/78 (89) 94 Room Air Laboratory Tests Test 08/19/19 17:30 08/19/19 18:15 White Blood Count 4.7 K/UL (4.8-10.8) L Red Blood Count 4.71 M/UL (4.70-6.10) Hemoglobin 14.9 G/DL (14.2-18.0) Hematocrit 42.6 % (42.0-52.0) Mean Corpuscular Volume 90 FL (80-99) Mean Corpuscular Hemoglobin 31.6 PG (27.0-31.0) H Mean Corpuscular Hemoglobin Concent 34.9 G/DL (32.0-36.0) Red Cell Distribution Width 12.1 % (11.6-14.8) Platelet Count 172 K/UL (150-450) Mean Platelet Volume 5.9 FL (6.5-10.1) L Neutrophils (%) (Auto) 77.5 % (45.0-75.0) H Lymphocytes (%) (Auto) 12.4 % (20.0-45.0) L Monocytes (%) (Auto) 9.1 % (1.0-10.0) Eosinophils (%) (Auto) 0.1 % (0.0-3.0) Basophils (%) (Auto) 1.0 % (0.0-2.0) Sodium Level 130 MMOL/L (136-145) L Potassium Level 4.5 MMOL/L (3.5-5.1) Chloride Level 94 MMOL/L (98-107) L Carbon Dioxide Level 32 MMOL/L (21-32) Anion Gap 4 mmol/L (5-15) L Blood Urea Nitrogen 18 mg/dL (7-18) Creatinine 0.6 MG/DL (0.55-1.30) Estimat Glomerular Filtration Rate > 60 mL/min (>60) Glucose Level 281 MG/DL (74-106) H Lactic Acid Level 2.10 mmol/L (0.4-2.0) H Calcium Level 8.2 MG/DL (8.5-10.1) L Total Bilirubin 0.3 MG/DL (0.2-1.0) Aspartate Amino Transf (AST/SGOT) 72 U/L (15-37) H Alanine Aminotransferase (ALT/SGPT) 35 U/L (12-78) Alkaline Phosphatase 203 U/L (46-116) H Total Creatine Kinase 835 U/L (26-308) H Creatine Kinase MB 0.6 NG/ML (0.0-3.6) Creatine Kinase MB Relative Index 0.0 Troponin I 0.205 ng/mL (0.000-0.056) Pro-B-Type Natriuretic Peptide 2911 pg/mL (0-125) H Total Protein 7.5 G/DL (6.4-8.2) Albumin 2.5 G/DL (3.4-5.0) L Globulin 5.0 g/dL Albumin/Globulin Ratio 0.5 (1.0-2.7) L Urine Color Yellow Urine Appearance Clear Urine pH 7 (4.5-8.0) Urine Specific [place] 1.010 (1.005-1.035) Urine Protein 3+ (NEGATIVE) H Urine Glucose (UA) 3+ (NEGATIVE) H Urine Ketones Negative (NEGATIVE) Urine Blood 1+ (NEGATIVE) H Urine Nitrite Negative (NEGATIVE) Urine Bilirubin Negative (NEGATIVE) Urine Urobilinogen 1 MG/DL (0.0-1.0) H Urine Leukocyte Esterase Negative (NEGATIVE) Urine RBC 0-2 /HPF (0 - 0) H Urine WBC 0 /HPF (0 - 0) Urine Squamous Epithelial Cells None /LPF (NONE/OCC) Urine Bacteria None /HPF (NONE) Microbiology Date/Time Source Procedure Growth Status 08/19/19 18:30 Nasal Nares - Final Complete 08/19/19 18:30 Nasal Nares - Final Complete 08/19/19 18:30 Rectum Received Height (Feet): 5 Height (Inches): 8.00 Weight (Pounds): 180 Assessment/Plan Assessment/Plan: 83YO M with HTN, HLD, COPD, CAD, Seizure disorder presenting with cough and shortness of breath. In the ED, patient was found to be tachycardic (130's) and tachypnic (33) and febrile at 101.2. He underwent endotracheal intubation and will be transferred to the ICU for further observation and medical management. #Hypoxemic respiratory failure #Severe sepsis 2/2 CAP #Concer for COVID infectoin. -s/p emergent endotracheal intubation given significant tachypnea -Dr. Nash of pulmonology on board. Appreciate the management. -CXR significant for bilateral vascular congestion. Possible infiltrate right middle lobe and left lower lobe -Azithro and ceftriaxone. -Empiric tx with hydroxychloroquine initiated. -Continuous electronic device monitor. -Continue vent management per the ICU team. -Daily labs. -Blood cultures x 2. -Contact plus isolation. -COVID PCR ordered at facility prior to admission. Please follow up #History of Seizure disorder: -Continue with propofol per the ICU protocol. #HTN #HLD #CAD -Resume home medications. -continue to monitor. I spent 70 minutes of critical care time on this patient's case, and >50% was dedicated to counseling and/or care coordination. I spent an additional 20 minutes on review of medical records including prior ~ hospital records, consult notes, progress notes, procedures, imaging, labs, hemodynamics, and other clinical documentation. Steve Pickering M.D. Aug 19, 2019 19:59
[2019-08-19] MEDS ORDERED: Azithromycin 250mg tab ORAL ONE (20:30)
[2019-08-19] MEDS ORDERED: Labetalol 5mg/ml 20ml vial IV ONE (22:15)
--- NOTE | 2019-08-19 22:30 | NUR ---
ED Nurse Note: administered plaquenil via gtube, crushed. Per pharmacy, okay to administer plaquenil crushed via gtube.
[2019-08-20] VITALS (26 sets, daily range): BP systolic 77–156; BP diastolic 56–92
[2019-08-20] MEDS: Albuterol/Ipratropium 3ml neb IN-LINE SCH ×4 (01:00→20:20)
--- NOTE | 2019-08-20 07:43 | History and Physical ---
History of Present Illness General Date patient seen: Aug 19, 2019 Time patient seen: 22:00 Reason for Hospitalization: FeverAcute hypoxemic respiratory failureCOVID rule out Present Illness HPI Pt is an 83 YO M with PMHx of HLD, HTN, atherosclerotic CAD, COPD, advanced dementia, non-verbal at baseline, seizure disorder presents for fever, and cough. History is obtained from the medical record as patient is sedated and intubated. Per the medical record, patient had been experiencing severe worsening symptoms of cough and SOB over the last several days. In the ED, patient's vitals were significant for HR: 130's, F: 101.2 and tachypnic with RR of 33. He underwent endotracheal intubation given his respiratory status. Allergies: Coded Allergies: No Known Allergies (Unverified , 02/29/16) COVID-19 Screening Contact w/high risk pt: Yes Recent Travel to affected area: No Experienced COVID-19 symptoms?: Yes COVID-19 symptoms experienced: Fever (T>100.4F or >38C), Shortness of Breath Medication History Scheduled Apixaban (Eliquis), 2.5 MG PO BID, (Reported) Ascorbic Acid* (Ascorbic Acid*), 500 MG GT DAILY, (Reported) Aspirin* (Aspirin*), 81 MG ORAL DAILY, (Reported) Atorvastatin Calcium* (Atorvastatin Calcium*), 40 MG ORAL BEDTIME, (Reported) Calcium Carbonate (Calcium), 500 MG PO DAILY, (Reported) Cholecalciferol (Vitamin D3)* (Vitamin D*), 1,000 UNIT ORAL DAILY, (Reported) Docusate Sodium (Docusate Sodium), 10 MG GT DAILY, (Reported) Levetiracetam* (Levetiracetam*), 1,500 MG GT BID, (Reported) Levofloxacin (Levofloxacin*), 500 MG ORAL DAILY Lorazepam* (Ativan*), 0.5 MG ORAL THREE TIMES A DAY, (Reported) Mirtazapine* (Mirtazapine*), 7.5 MG ORAL BEDTIME, (Reported) Multivitamin (Multiple Vitamins), 1 EACH PO DAILY, (Reported) Pantoprazole* (Protonix*), 40 MG ORAL DAILY, (Reported) Phenytoin (Phenytoin*), 250 MG ORAL DAILY, (Reported) Tamsulosin Hcl (Tamsulosin Hcl*), 0.4 MG ORAL BEDTIME, (Reported) Terbinafine Hcl* (Lamisil*), 250 MG GT DAILY, (Reported) Scheduled PRN Acetaminophen* (Acetaminophen*), 650 MG ORAL Q6H PRN for Mild Pain/Temp > 100.5, (Reported) Ipratropium [place] 0.5MG/2.5ML (Ipratropium [place] 0.5MG/2.5ML), 0.5 MG HHN Q4HR PRN for Shortness of Breath, (Reported) Miscellaneous Medications Isosorbide Dinitrate (Isosorbide Dinitrate*), 30 MG ORAL, (Reported) Patient History Healthcare decision maker Resuscitation status Advanced Directive on File Review of Systems All Other Systems: negative except mentioned in HPI ROS Narrative UNABLE TO OBTAIN. PATIENT SEDATED AND INTUBATED. Physical Exam General Appearance: other - SEDATED AND INTUBATED Lines, tubes and drains: peripheral, central line, endotracheal tube HEENT: normocephalic Neck: normal alignment, normal inspection Respiratory/Chest: other - INTUBATED Cardiovascular/Chest: normal rate, tachycardia Abdomen: soft Extremities: pitting Neurologic: other - SEDATED. UNABLE TO PERFORM Musculoskeletal: atrophy Last 24 Hour Vital Signs Date Time Temp Pulse Resp B/P (MAP) Pulse Ox O2 Delivery O2 Flow Rate FiO2 08/20/19 06:00 82 16 156/81 100 Mechanical Ventilator 2.0 40 08/20/19 06:00 16 156/81 Mechanical Ventilator 08/20/19 05:00 79 16 152/81 100 Mechanical Ventilator 2.0 40 08/20/19 05:00 16 152/81 Mechanical Ventilator 08/20/19 04:40 97 17 40 08/20/19 04:00 17 146/77 Mechanical Ventilator 08/20/19 04:00 87 17 146/77 100 Mechanical Ventilator 2.0 50 08/20/19 03:00 16 146/69 Mechanical Ventilator 08/20/19 03:00 84 16 146/69 100 Mechanical Ventilator 2.0 50 08/20/19 02:20 110 20 50 08/20/19 02:00 86 16 149/82 100 Mechanical Ventilator 2.0 100 08/20/19 02:00 16 149/82 Mechanical Ventilator 08/20/19 01:00 85 16 154/72 100 Mechanical Ventilator 2.0 100 08/20/19 01:00 16 154/72 Mechanical Ventilator 08/20/19 00:00 89 16 156/72 100 Mechanical Ventilator 2.0 100 08/20/19 00:00 16 156/72 Mechanical Ventilator 08/19/19 23:00 92 16 154/87 100 Mechanical Ventilator 08/19/19 23:00 16 154/87 Mechanical Ventilator 08/19/19 22:31 134 200/123 08/19/19 22:00 98 16 166/59 100 Mechanical Ventilator 2.0 100 08/19/19 22:00 16 166/89 Mechanical Ventilator 08/19/19 21:06 122 25 100 08/19/19 21:00 100.5 127 16 191/88 100 Mechanical Ventilator 08/19/19 21:00 16 191/88 Mechanical Ventilator 08/19/19 20:30 16 189/87 Mechanical Ventilator 08/19/19 20:30 129 16 189/87 100 Mechanical Ventilator 08/19/19 20:06 16 151/112 Mechanical Ventilator 08/19/19 20:06 16 151/112 Mechanical Ventilator 08/19/19 20:00 100.3 123 16 156/102 99 Mechanical Ventilator 2.0 100 08/19/19 20:00 16 156/102 Mechanical Ventilator 08/19/19 19:45 119 16 146/106 99 Mechanical Ventilator 2.0 100 08/19/19 19:45 16 146/106 Mechanical Ventilator 08/19/19 19:30 121 16 142/105 99 Mechanical Ventilator 08/19/19 19:30 16 142/105 Mechanical Ventilator 08/19/19 19:02 137 32 100 08/19/19 18:49 100.1 08/19/19 18:08 100.0 08/19/19 17:30 101.2 134 33 114/76 94 Nasal Cannula 2.0 08/19/19 17:00 132 33 Room Air 08/19/19 16:59 101.5 132 32 112/78 (89) 94 Room Air Intake and Output 08/19/19 08/20/19 19:00 07:00 Intake Total 1055 ml Balance 1055 ml Intake Oral 0 ml IV Total 1055 ml Laboratory Tests Test 08/19/19 17:30 08/19/19 18:15 08/19/19 19:47 08/19/19 20:01 White Blood Count 4.7 K/UL (4.8-10.8) L Red Blood Count 4.71 M/UL (4.70-6.10) Hemoglobin 14.9 G/DL (14.2-18.0) Hematocrit 42.6 % (42.0-52.0) Mean Corpuscular Volume 90 FL (80-99) Mean Corpuscular Hemoglobin 31.6 PG (27.0-31.0) H Mean Corpuscular Hemoglobin Concent 34.9 G/DL (32.0-36.0) Red Cell Distribution Width 12.1 % (11.6-14.8) Platelet Count 172 K/UL (150-450) Mean Platelet Volume 5.9 FL (6.5-10.1) L Neutrophils (%) (Auto) 77.5 % (45.0-75.0) H Lymphocytes (%) (Auto) 12.4 % (20.0-45.0) L Monocytes (%) (Auto) 9.1 % (1.0-10.0) Eosinophils (%) (Auto) 0.1 % (0.0-3.0) Basophils (%) (Auto) 1.0 % (0.0-2.0) D-Dimer 16.53 mg/L FEU (0.00-0.49) H Sodium Level 130 MMOL/L (136-145) L Potassium Level 4.5 MMOL/L (3.5-5.1) Chloride Level 94 MMOL/L (98-107) L Carbon Dioxide Level 32 MMOL/L (21-32) Anion Gap 4 mmol/L (5-15) L Blood Urea Nitrogen 18 mg/dL (7-18) Creatinine 0.6 MG/DL (0.55-1.30) Estimat Glomerular Filtration Rate > 60 mL/min (>60) Glucose Level 281 MG/DL (74-106) H Lactic Acid Level 2.10 mmol/L (0.4-2.0) H 1.80 mmol/L (0.66-2.22) Calcium Level 8.2 MG/DL (8.5-10.1) L Total Bilirubin 0.3 MG/DL (0.2-1.0) Aspartate Amino Transf (AST/SGOT) 72 U/L (15-37) H Alanine Aminotransferase (ALT/SGPT) 35 U/L (12-78) Alkaline Phosphatase 203 U/L (46-116) H Lactate Dehydrogenase 416 U/L (81-234) H Total Creatine Kinase 835 U/L (26-308) H Creatine Kinase MB 0.6 NG/ML (0.0-3.6) Creatine Kinase MB Relative Index 0.0 Troponin I 0.205 ng/mL (0.000-0.056) C-Reactive Protein, Quantitative 18.3 mg/dL (0.00-0.90) H Pro-B-Type Natriuretic Peptide 2911 pg/mL (0-125) H Total Protein 7.5 G/DL (6.4-8.2) Albumin 2.5 G/DL (3.4-5.0) L Globulin 5.0 g/dL Albumin/Globulin Ratio 0.5 (1.0-2.7) L HIV (1&2) Antibody Rapid Negative (NEGATIVE) Urine Color Yellow Urine Appearance Clear Urine pH 7 (4.5-8.0) Urine Specific [place] 1.010 (1.005-1.035) Urine Protein 3+ (NEGATIVE) H Urine Glucose (UA) 3+ (NEGATIVE) H Urine Ketones Negative (NEGATIVE) Urine Blood 1+ (NEGATIVE) H Urine Nitrite Negative (NEGATIVE) Urine Bilirubin Negative (NEGATIVE) Urine Urobilinogen 1 MG/DL (0.0-1.0) H Urine Leukocyte Esterase Negative (NEGATIVE) Urine RBC 0-2 /HPF (0 - 0) H Urine WBC 0 /HPF (0 - 0) Urine Squamous Epithelial Cells None /LPF (NONE/OCC) Urine Bacteria None /HPF (NONE) Interleukin 6 (IL-6) Pending Test 08/19/19 21:00 Arterial Blood pH 7.427 (7.350-7.450) Arterial Blood Partial Pressure CO2 40.2 mmHg (35.0-45.0) Arterial Blood Partial Pressure O2 246.2 mmHg (75.0-100.0) H Arterial Blood HCO3 25.9 mmol/L (22.0-26.0) Arterial Blood Oxygen Saturation 99.4 % (95-100) Arterial Blood Base Excess 1.5 (-2-2) Jag Test Positive Microbiology Date/Time Source Procedure Growth Status 08/19/19 18:30 Nasal Nares - Final Complete 08/19/19 18:30 Nasal Nares - Final Complete 08/19/19 18:30 Rectum Received Height (Feet): 5 Height (Inches): 8.00 Weight (Pounds): 180 Medications Current Medications Medications (Trade) Dose Ordered Sig/Vanessa Route PRN Reason Start Time Stop Time Status Last Admin Dose Admin Albuterol/ Ipratropium (Albuterol/ Ipratropium) 3 ml Q6HRT IN-LINE 08/20/19 01:00 08/25/19 00:59 Azithromycin (Zithromax) 250 mg DAILY ORAL 08/20/19 09:00 08/23/19 09:01 Heparin Sodium (Porcine) (Heparin 5000 units/ml) 5,000 units BID SUBQ 08/20/19 09:00 10/04/19 08:59 Hydroxychloroquine Sulfate (Plaquenil) 200 mg BID ORAL 08/20/19 18:00 08/24/19 09:01 Hydroxychloroquine Sulfate (Plaquenil) 400 mg BID ORAL 08/19/19 20:45 08/20/19 09:01 08/19/19 22:32 Propofol 100 ml @ 0 mls/hr Q24H IV 08/19/19 20:15 08/21/19 20:14 08/19/19 20:06 Steve Pickering M.D. Aug 20, 2019 07:43
--- NOTE | 2019-08-20 07:55 | NUR ---
ED Nurse Note: report given to Mery PAULSON
--- NOTE | 2019-08-20 07:56 | NUR ---
simv has been changed to ac with tv 450 ac 18 peep 8 o2 40 %
[2019-08-20] MEDS ORDERED: Heparin 5000 units/ml inj SUBQ SCH (09:00)
--- NOTE | 2019-08-20 09:00 | NUR ---
ED Nurse Note: Pt resting on gurney with no distress. Respirations are even and unlabored. Ongoing propofol running at 5mcg/min. Side rails up with bed locked in lowest position.
--- NOTE | 2019-08-20 09:51 | Diagnostic Imaging Report ---
Indication: Shortness of breath Technique: One view of the chest Comparison: 11/13/2018 Findings: Interim development of infiltrate in the right upper lobe. There may be some right of perihilar interstitial disease as well. There is opacification of the left lung base, as well as diffuse hazy opacity throughout the left lung. The heart is borderline enlarged. There is evidence of prior median sternotomy and aortic valve prosthesis placement. Impression: Left basilar opacification and diffuse left lung hazy opacity. Findings may represent infiltrate, edema, pleural effusion, or combination of such. Right upper lobe infiltrate versus edema, new since prior exam Borderline cardiomegaly. Postsurgical changes of the heart
--- NOTE | 2019-08-20 10:00 | NUR ---
ED Nurse Note: Dr Nash at the bed side and notified of AC mode settings carried out by RT. Pt unable to tolerate SIMV due to desaturation and tachycardia.
--- NOTE | 2019-08-20 10:02 | Diagnostic Imaging Report ---
Indication: Chest pain Technique: One view of the chest Comparison: 1 1/2 hours earlier Findings: Interim placement of a right jugular central venous catheter, tip which projects at the level of the high right atrium. No gross pneumothorax. Interim endotracheal intubation, endotracheal tube tip projecting approximately 6 cm above the darline. Right upper lobe infiltrate is unchanged. Left retrocardiac opacification and likely left pleural effusion are unchanged. Impression: Endotracheal intubation Satisfactory placement right jugular central venous catheter, no radiographically evident complication Other stable findings as described
--- NOTE | 2019-08-20 10:09 | Pulmonolgy Critical Care Note ---
Critical Care - Asmt/Plan Problems: (1) Respiratory failure (2) Suspected 2019 novel coronavirus infection (3) History of CVA (cerebrovascular accident) (4) Acute encephalopathy (5) Multi-infarct dementia (6) Uncontrolled seizures Assessment/Plan: Continue ventilatory support, settings reviewed: TV 450 AC 14 PEEP 8 FiO2 40 LPV Monitor gas exchange HHN's in line with Vent Azithro (D1), Plaquenil (D1) COVID labs sent, F/U IL6, HIV, daily CRP and ferritin Consideration for other therapies, will d/w ID and pharmacy Monitor volumes and renal function NPO, start TF's once stable and transferred up to ICU Propfol gtt, monitor TG's Continue [employer]IST[employer] meds DVT Px: Eliquis Disposition: keep in ICU Time Spent (Minutes): 70 Notes Reviewed: peanut blancher, other - ER Discussed with: nurses, consultants Critical Care - Objective Last 24 Hour Vital Signs Date Time Temp Pulse Resp B/P (MAP) Pulse Ox O2 Delivery O2 Flow Rate FiO2 08/20/19 08:40 89 18 40 08/20/19 08:03 2.0 40 08/20/19 08:00 18 134/74 Mechanical Ventilator 40 08/20/19 08:00 109 18 134/74 100 Mechanical Ventilator 40 08/20/19 07:30 123 24 40 08/20/19 07:00 16 159/89 Mechanical Ventilator 08/20/19 06:00 82 16 156/81 100 Mechanical Ventilator 2.0 40 08/20/19 06:00 16 156/81 Mechanical Ventilator 08/20/19 05:00 79 16 152/81 100 Mechanical Ventilator 2.0 40 08/20/19 05:00 16 152/81 Mechanical Ventilator 08/20/19 04:40 97 17 40 08/20/19 04:00 17 146/77 Mechanical Ventilator 08/20/19 04:00 87 17 146/77 100 Mechanical Ventilator 2.0 50 08/20/19 03:00 16 146/69 Mechanical Ventilator 08/20/19 03:00 84 16 146/69 100 Mechanical Ventilator 2.0 50 08/20/19 02:20 110 20 50 08/20/19 02:00 86 16 149/82 100 Mechanical Ventilator 2.0 100 08/20/19 02:00 16 149/82 Mechanical Ventilator 08/20/19 01:00 85 16 154/72 100 Mechanical Ventilator 2.0 100 08/20/19 01:00 16 154/72 Mechanical Ventilator 08/20/19 00:00 89 16 156/72 100 Mechanical Ventilator 2.0 100 08/20/19 00:00 16 156/72 Mechanical Ventilator 08/19/19 23:00 92 16 154/87 100 Mechanical Ventilator 08/19/19 23:00 16 154/87 Mechanical Ventilator 08/19/19 22:31 134 200/123 08/19/19 22:00 98 16 166/59 100 Mechanical Ventilator 2.0 100 08/19/19 22:00 16 166/89 Mechanical Ventilator 08/19/19 21:06 122 25 100 08/19/19 21:00 100.5 127 16 191/88 100 Mechanical Ventilator 08/19/19 21:00 16 191/88 Mechanical Ventilator 08/19/19 20:30 16 189/87 Mechanical Ventilator 08/19/19 20:30 129 16 189/87 100 Mechanical Ventilator 08/19/19 20:06 16 151/112 Mechanical Ventilator 08/19/19 20:06 16 151/112 Mechanical Ventilator 08/19/19 20:00 100.3 123 16 156/102 99 Mechanical Ventilator 2.0 100 08/19/19 20:00 16 156/102 Mechanical Ventilator 08/19/19 19:45 119 16 146/106 99 Mechanical Ventilator 2.0 100 08/19/19 19:45 16 146/106 Mechanical Ventilator 08/19/19 19:30 121 16 142/105 99 Mechanical Ventilator 08/19/19 19:30 16 142/105 Mechanical Ventilator 08/19/19 19:02 137 32 100 08/19/19 18:49 100.1 08/19/19 18:08 100.0 08/19/19 17:30 101.2 134 33 114/76 94 Nasal Cannula 2.0 08/19/19 17:00 132 33 Room Air 08/19/19 16:59 101.5 132 32 112/78 (89) 94 Room Air Status: sedated - intubated Condition: critical HEENT: atraumatic, normocephalic Neck: other - R IJ Lungs: rhonchi Heart: HR/BP stable Abdomen: soft, non-tender, active bowel sounds, feeding tube Extremities: no C/C/E Micro: Microbiology Date/Time Source Procedure Growth Status 08/19/19 18:30 Nasal Nares - Final Complete 08/19/19 18:30 Nasal Nares - Final Complete 08/19/19 18:30 Rectum Received Blood Sugars: BS controlled Critical Care - Subjective ROS Limited/Unobtainable: Yes ICU Day: 1 Intubation Day: 1 Interval Events: SNF resident CVA, dementia, COPD, GT dependant BIB EMS with SOB, cough, fevers, b inf and concern for COVID19 Intubated in ER, R IJ placed, stable on vent 7.45/35/172, no sig secretions No further hx obtainable from patient Condition: critical IV Access: central - R IJ EKG Rhythm: Sinus Rhythm FI02: 40 Vent Support Breath Rate: 18 Vent Support Mode: AC Vent Tidal Volume: 450 Sputum Amount: Small PEEP: 8.0 PIP: 38 Secretions: Small thin Fluids: SLIV Drips: None I&O: Intake and Output 08/19/19 08/20/19 19:00 07:00 Intake Total 1055 ml Balance 1055 ml Intake Oral 0 ml IV Total 1055 ml Subjective: REYMUNDO CXR: B INF ET-Tube: 7.5 ET Position: 21 Labs: Laboratory Tests Test 08/19/19 17:30 08/19/19 18:15 08/19/19 19:47 08/19/19 20:01 White Blood Count 4.7 K/UL (4.8-10.8) L Red Blood Count 4.71 M/UL (4.70-6.10) Hemoglobin 14.9 G/DL (14.2-18.0) Hematocrit 42.6 % (42.0-52.0) Mean Corpuscular Volume 90 FL (80-99) Mean Corpuscular Hemoglobin 31.6 PG (27.0-31.0) H Mean Corpuscular Hemoglobin Concent 34.9 G/DL (32.0-36.0) Red Cell Distribution Width 12.1 % (11.6-14.8) Platelet Count 172 K/UL (150-450) Mean Platelet Volume 5.9 FL (6.5-10.1) L Neutrophils (%) (Auto) 77.5 % (45.0-75.0) H Lymphocytes (%) (Auto) 12.4 % (20.0-45.0) L Monocytes (%) (Auto) 9.1 % (1.0-10.0) Eosinophils (%) (Auto) 0.1 % (0.0-3.0) Basophils (%) (Auto) 1.0 % (0.0-2.0) D-Dimer 16.53 mg/L FEU (0.00-0.49) H Sodium Level 130 MMOL/L (136-145) L Potassium Level 4.5 MMOL/L (3.5-5.1) Chloride Level 94 MMOL/L (98-107) L Carbon Dioxide Level 32 MMOL/L (21-32) Anion Gap 4 mmol/L (5-15) L Blood Urea Nitrogen 18 mg/dL (7-18) Creatinine 0.6 MG/DL (0.55-1.30) Estimat Glomerular Filtration Rate > 60 mL/min (>60) Glucose Level 281 MG/DL (74-106) H Lactic Acid Level 2.10 mmol/L (0.4-2.0) H 1.80 mmol/L (0.66-2.22) Calcium Level 8.2 MG/DL (8.5-10.1) L Total Bilirubin 0.3 MG/DL (0.2-1.0) Aspartate Amino Transf (AST/SGOT) 72 U/L (15-37) H Alanine Aminotransferase (ALT/SGPT) 35 U/L (12-78) Alkaline Phosphatase 203 U/L (46-116) H Lactate Dehydrogenase 416 U/L (81-234) H Total Creatine Kinase 835 U/L (26-308) H Creatine Kinase MB 0.6 NG/ML (0.0-3.6) Creatine Kinase MB Relative Index 0.0 Troponin I 0.205 ng/mL (0.000-0.056) C-Reactive Protein, Quantitative 18.3 mg/dL (0.00-0.90) H Pro-B-Type Natriuretic Peptide 2911 pg/mL (0-125) H Total Protein 7.5 G/DL (6.4-8.2) Albumin 2.5 G/DL (3.4-5.0) L Globulin 5.0 g/dL Albumin/Globulin Ratio 0.5 (1.0-2.7) L HIV (1&2) Antibody Rapid Negative (NEGATIVE) Urine Color Yellow Urine Appearance Clear Urine pH 7 (4.5-8.0) Urine Specific [place] 1.010 (1.005-1.035) Urine Protein 3+ (NEGATIVE) H Urine Glucose (UA) 3+ (NEGATIVE) H Urine Ketones Negative (NEGATIVE) Urine Blood 1+ (NEGATIVE) H Urine Nitrite Negative (NEGATIVE) Urine Bilirubin Negative (NEGATIVE) Urine Urobilinogen 1 MG/DL (0.0-1.0) H Urine Leukocyte Esterase Negative (NEGATIVE) Urine RBC 0-2 /HPF (0 - 0) H Urine WBC 0 /HPF (0 - 0) Urine Squamous Epithelial Cells None /LPF (NONE/OCC) Urine Bacteria None /HPF (NONE) Interleukin 6 (IL-6) Pending Test 08/19/19 21:00 08/20/19 09:25 Arterial Blood pH 7.427 (7.350-7.450) 7.450 (7.350-7.450) Arterial Blood Partial Pressure CO2 40.2 mmHg (35.0-45.0) 35.8 mmHg (35.0-45.0) Arterial Blood Partial Pressure O2 246.2 mmHg (75.0-100.0) H 172.8 mmHg (75.0-100.0) H Arterial Blood HCO3 25.9 mmol/L (22.0-26.0) 24.3 mmol/L (22.0-26.0) Arterial Blood Oxygen Saturation 99.4 % (95-100) 98.9 % (95-100) Arterial Blood Base Excess 1.5 (-2-2) 0.8 (-2-2) Jag Test Positive Positive David Nash MD Aug 20, 2019 10:09
[2019-08-20] MEDS: Azithromycin 250mg tab ORAL SCH (10:48)
--- NOTE | 2019-08-20 12:25 | NUR ---
ED Nurse Note: Morning lab sent.
--- NOTE | 2019-08-20 13:00 | NUR ---
Unable to give Duoneb HHN treatment to pt due to COVID 19 pending. LORENE wyman.
--- NOTE | 2019-08-20 13:35 | General Progress Note ---
Assessment/Plan Assessment/Plan: 83YO M with HTN, HLD, COPD, CAD, Seizure disorder presenting with cough and shortness of breath. In the ED, patient was found to be tachycardic (130's) and tachypnic (33) and febrile at 101.2. He underwent endotracheal intubation and will be transferred to the ICU for further observation and medical management. 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 -Continue vent management per the ICU team. -Daily labs. -Blood cultures x 2. -Contact plus isolation. -COVID PCR ordered at facility prior to admission. Please follow up -ID consulted #History of Seizure disorder: -cont Dilantin and Keppra -Neurology consulted, Dr. Rose #HTN #HLD #CAD #Eliquis use I spent 75 minutes on this patient's case, and 36 mins was dedicated to critical care Critical Care Services performed include: Telemetry Review Hemodynamic measurement interpretation Laboratory data review and interpretation Radiology image review and interpretation Ventilator setting review, management, and adjustment Interpretation of ABG's Discussion of patient's care with ICU team, ICU Nursing staff and/or consulting services Subjective Date patient seen: Aug 20, 2019 Time patient seen: 13:20 ROS Limited/Unobtainable: Yes Allergies: Coded Allergies: No Known Allergies (Unverified , 02/29/16) Subjective Follow up for acute hypoxic resp failure, possible cap, rule out Covid19. Remains intubated, VSS. Pulm recs appreciated Objective Last 24 Hour Vital Signs Date Time Temp Pulse Resp B/P (MAP) Pulse Ox O2 Delivery O2 Flow Rate FiO2 08/20/19 12:00 92 16 110/56 100 Mechanical Ventilator 40 08/20/19 12:00 16 110/56 Mechanical Ventilator 40 08/20/19 11:10 78 18 40 08/20/19 11:00 18 125/64 Mechanical Ventilator 40 08/20/19 11:00 87 16 125/64 99 Mechanical Ventilator 40 08/20/19 10:00 16 133/87 Mechanical Ventilator 40 08/20/19 10:00 92 15 133/87 100 Mechanical Ventilator 40 08/20/19 09:00 85 16 128/70 100 Mechanical Ventilator 40 08/20/19 09:00 16 128/70 Mechanical Ventilator 40 08/20/19 08:40 89 18 40 08/20/19 08:03 2.0 40 08/20/19 08:00 18 134/74 Mechanical Ventilator 40 08/20/19 08:00 109 18 134/74 100 Mechanical Ventilator 40 08/20/19 07:30 123 24 40 08/20/19 07:00 16 159/89 Mechanical Ventilator 08/20/19 06:00 82 16 156/81 100 Mechanical Ventilator 2.0 40 08/20/19 06:00 16 156/81 Mechanical Ventilator 08/20/19 05:00 79 16 152/81 100 Mechanical Ventilator 2.0 40 08/20/19 05:00 16 152/81 Mechanical Ventilator 08/20/19 04:40 97 17 40 08/20/19 04:00 17 146/77 Mechanical Ventilator 08/20/19 04:00 87 17 146/77 100 Mechanical Ventilator 2.0 50 08/20/19 03:00 16 146/69 Mechanical Ventilator 08/20/19 03:00 84 16 146/69 100 Mechanical Ventilator 2.0 50 08/20/19 02:20 110 20 50 08/20/19 02:00 86 16 149/82 100 Mechanical Ventilator 2.0 100 08/20/19 02:00 16 149/82 Mechanical Ventilator 08/20/19 01:00 85 16 154/72 100 Mechanical Ventilator 2.0 100 08/20/19 01:00 16 154/72 Mechanical Ventilator 08/20/19 00:00 89 16 156/72 100 Mechanical Ventilator 2.0 100 08/20/19 00:00 16 156/72 Mechanical Ventilator 08/19/19 23:00 92 16 154/87 100 Mechanical Ventilator 08/19/19 23:00 16 154/87 Mechanical Ventilator 08/19/19 22:31 134 200/123 08/19/19 22:00 98 16 166/59 100 Mechanical Ventilator 2.0 100 08/19/19 22:00 16 166/89 Mechanical Ventilator 08/19/19 21:06 122 25 100 08/19/19 21:00 100.5 127 16 191/88 100 Mechanical Ventilator 08/19/19 21:00 16 191/88 Mechanical Ventilator 08/19/19 20:30 16 189/87 Mechanical Ventilator 08/19/19 20:30 129 16 189/87 100 Mechanical Ventilator 08/19/19 20:06 16 151/112 Mechanical Ventilator 08/19/19 20:06 16 151/112 Mechanical Ventilator 08/19/19 20:00 100.3 123 16 156/102 99 Mechanical Ventilator 2.0 100 08/19/19 20:00 16 156/102 Mechanical Ventilator 08/19/19 19:45 119 16 146/106 99 Mechanical Ventilator 2.0 100 08/19/19 19:45 16 146/106 Mechanical Ventilator 08/19/19 19:30 121 16 142/105 99 Mechanical Ventilator 08/19/19 19:30 16 142/105 Mechanical Ventilator 08/19/19 19:02 137 32 100 08/19/19 18:49 100.1 08/19/19 18:08 100.0 08/19/19 17:30 101.2 134 33 114/76 94 Nasal Cannula 2.0 08/19/19 17:00 132 33 Room Air 08/19/19 16:59 101.5 132 32 112/78 (89) 94 Room Air Intake and Output 08/19/19 08/20/19 19:00 07:00 Intake Total 1055 ml Balance 1055 ml Intake Oral 0 ml IV Total 1055 ml Laboratory Tests 08/19/19 17:30: White Blood Count 4.7L, Red Blood Count 4.71, Hemoglobin 14.9, Hematocrit 42.6, Mean Corpuscular Volume 90, Mean Corpuscular Hemoglobin 31.6H, Mean Corpuscular Hemoglobin Concent 34.9, Red Cell Distribution Width 12.1, Platelet Count 172, Mean Platelet Volume 5.9L, Neutrophils (%) (Auto) 77.5H, Lymphocytes (%) (Auto) 12.4L, Monocytes (%) (Auto) 9.1, Eosinophils (%) (Auto) 0.1, Basophils (%) (Auto ) 1.0, D-Dimer 16.53H, Sodium Level 130L, Potassium Level 4.5, Chloride Level 94L, Carbon Dioxide Level 32, Anion Gap 4L, Blood Urea Nitrogen 18, Creatinine 0.6, Estimat Glomerular Filtration Rate > 60, Glucose Level 281H, Lactic Acid Level 2.10H, Calcium Level 8.2L, Total Bilirubin 0.3, Aspartate Amino Transf ( AST/SGOT) 72H, Alanine Aminotransferase (ALT/SGPT) 35, Alkaline Phosphatase 203H , Lactate Dehydrogenase 416H, Total Creatine Kinase 835H, Creatine Kinase MB 0.6 , Creatine Kinase MB Relative Index 0.0, Troponin I 0.205H, C-Reactive Protein, Quantitative 18.3H, Pro-B-Type Natriuretic Peptide 2911H, Total Protein 7.5, Albumin 2.5L, Globulin 5.0, Albumin/Globulin Ratio 0.5L, HIV (1&2) Antibody Rapid Negative 08/19/19 18:15: Urine Color Yellow, Urine Appearance Clear, Urine pH 7, Urine Specific [place] 1.010, Urine Protein 3+H, Urine Glucose (UA) 3+H, Urine Ketones Negative, Urine Blood 1+H, Urine Nitrite Negative, Urine Bilirubin Negative, Urine Urobilinogen 1H, Urine Leukocyte Esterase Negative, Urine RBC 0-2H, Urine WBC 0, Urine Squamous Epithelial Cells None, Urine Bacteria None 08/19/19 19:47: Lactic Acid Level 1.80 08/19/19 20:01: Interleukin 6 (IL-6) [Pending] 08/19/19 21:00: Arterial Blood pH 7.427, Arterial Blood Partial Pressure CO2 40.2, Arterial Blood Partial Pressure O2 246.2H, Arterial Blood HCO3 25.9, Arterial Blood Oxygen Saturation 99.4, Arterial Blood Base Excess 1.5, Jag Test Positive 08/20/19 09:25: Arterial Blood pH 7.450, Arterial Blood Partial Pressure CO2 35.8, Arterial Blood Partial Pressure O2 172.8H, Arterial Blood HCO3 24.3, Arterial Blood Oxygen Saturation 98.9, Arterial Blood Base Excess 0.8, Jag Test Positive 08/20/19 10:01: Arterial Blood pH 7.450, Arterial Blood Partial Pressure CO2 35.8, Arterial Blood Partial Pressure O2 172.8H, Arterial Blood HCO3 24.3, Arterial Blood Oxygen Saturation 98.9, Arterial Blood Base Excess 0.8, Jag Test Positive 08/20/19 12:21: Ferritin [Pending], C-Reactive Protein, Quantitative [Pending] Height (Feet): 5 Height (Inches): 8.00 Weight (Pounds): 180 Sergo Demarco MD Aug 20, 2019 13:35
--- NOTE | 2019-08-20 14:00 | NUR ---
ED Nurse Note: Pt resting on bed with eyes closed but opens to painful stimulation such as sternal rubbing. Withdraws to pain. No acute distress and propofol still ongoing at 5mcg/min. Remains on cardiac monitoring. Will closely monitor the pt.
--- NOTE | 2019-08-20 14:25 | Infectious Diseases Prog Note ---
Assessment/Plan Assessment/Plan Full consult dictated: A) 1) sepsis, shock 2) respiratory failure, pna 3) rule out covid-19 virus infection P) 1) vancomycin, zosyn, azithromycin, hydroxychloroquine 2) f/u on cultures, covid-19 testing, labs and chest x-ray 3) may need remdesivir, tocilizumab if available 4) thank you Subjective Allergies: Coded Allergies: No Known Allergies (Unverified , 02/29/16) Objective Vital Signs Last 24 Hour Vital Signs Date Time Temp Pulse Resp B/P (MAP) Pulse Ox O2 Delivery O2 Flow Rate FiO2 08/20/19 14:00 16 114/72 Mechanical Ventilator 40 08/20/19 13:09 78 18 40 08/20/19 13:00 16 118/65 Mechanical Ventilator 40 08/20/19 12:00 92 16 110/56 100 Mechanical Ventilator 40 08/20/19 12:00 16 110/56 Mechanical Ventilator 40 08/20/19 11:10 78 18 40 08/20/19 11:00 18 125/64 Mechanical Ventilator 40 08/20/19 11:00 87 16 125/64 99 Mechanical Ventilator 40 08/20/19 10:00 16 133/87 Mechanical Ventilator 40 08/20/19 10:00 92 15 133/87 100 Mechanical Ventilator 40 08/20/19 09:00 85 16 128/70 100 Mechanical Ventilator 40 08/20/19 09:00 16 128/70 Mechanical Ventilator 40 08/20/19 08:40 89 18 40 08/20/19 08:03 2.0 40 08/20/19 08:00 18 134/74 Mechanical Ventilator 40 08/20/19 08:00 109 18 134/74 100 Mechanical Ventilator 40 08/20/19 07:30 123 24 40 08/20/19 07:00 16 159/89 Mechanical Ventilator 08/20/19 06:00 82 16 156/81 100 Mechanical Ventilator 2.0 40 08/20/19 06:00 16 156/81 Mechanical Ventilator 08/20/19 05:00 79 16 152/81 100 Mechanical Ventilator 2.0 40 08/20/19 05:00 16 152/81 Mechanical Ventilator 08/20/19 04:40 97 17 40 08/20/19 04:00 17 146/77 Mechanical Ventilator 08/20/19 04:00 87 17 146/77 100 Mechanical Ventilator 2.0 50 4/7/20 03:00 16 146/69 Mechanical Ventilator 08/20/19 03:00 84 16 146/69 100 Mechanical Ventilator 2.0 50 08/20/19 02:20 110 20 50 08/20/19 02:00 86 16 149/82 100 Mechanical Ventilator 2.0 100 08/20/19 02:00 16 149/82 Mechanical Ventilator 08/20/19 01:00 85 16 154/72 100 Mechanical Ventilator 2.0 100 08/20/19 01:00 16 154/72 Mechanical Ventilator 08/20/19 00:00 89 16 156/72 100 Mechanical Ventilator 2.0 100 08/20/19 00:00 16 156/72 Mechanical Ventilator 08/19/19 23:00 92 16 154/87 100 Mechanical Ventilator 08/19/19 23:00 16 154/87 Mechanical Ventilator 08/19/19 22:31 134 200/123 08/19/19 22:00 98 16 166/59 100 Mechanical Ventilator 2.0 100 08/19/19 22:00 16 166/89 Mechanical Ventilator 08/19/19 21:06 122 25 100 08/19/19 21:00 100.5 127 16 191/88 100 Mechanical Ventilator 08/19/19 21:00 16 191/88 Mechanical Ventilator 08/19/19 20:30 16 189/87 Mechanical Ventilator 08/19/19 20:30 129 16 189/87 100 Mechanical Ventilator 08/19/19 20:06 16 151/112 Mechanical Ventilator 08/19/19 20:06 16 151/112 Mechanical Ventilator 08/19/19 20:00 100.3 123 16 156/102 99 Mechanical Ventilator 2.0 100 08/19/19 20:00 16 156/102 Mechanical Ventilator 08/19/19 19:45 119 16 146/106 99 Mechanical Ventilator 2.0 100 08/19/19 19:45 16 146/106 Mechanical Ventilator 08/19/19 19:30 121 16 142/105 99 Mechanical Ventilator 08/19/19 19:30 16 142/105 Mechanical Ventilator 08/19/19 19:02 137 32 100 08/19/19 18:49 100.1 08/19/19 18:08 100.0 08/19/19 17:30 101.2 134 33 114/76 94 Nasal Cannula 2.0 08/19/19 17:00 132 33 Room Air 08/19/19 16:59 101.5 132 32 112/78 (89) 94 Room Air Height (Feet): 5 Height (Inches): 8.00 Weight (Pounds): 180 Microbiology Date/Time Source Procedure Growth Status 08/19/19 18:30 Nasal Nares - Final Complete 08/19/19 18:30 Nasal Nares - Final Complete 08/19/19 18:30 Rectum Received Laboratory Tests Test 08/19/19 17:30 08/19/19 18:15 08/19/19 19:47 08/19/19 20:01 White Blood Count 4.7 K/UL (4.8-10.8) L Red Blood Count 4.71 M/UL (4.70-6.10) Hemoglobin 14.9 G/DL (14.2-18.0) Hematocrit 42.6 % (42.0-52.0) Mean Corpuscular Volume 90 FL (80-99) Mean Corpuscular Hemoglobin 31.6 PG (27.0-31.0) H Mean Corpuscular Hemoglobin Concent 34.9 G/DL (32.0-36.0) Red Cell Distribution Width 12.1 % (11.6-14.8) Platelet Count 172 K/UL (150-450) Mean Platelet Volume 5.9 FL (6.5-10.1) L Neutrophils (%) (Auto) 77.5 % (45.0-75.0) H Lymphocytes (%) (Auto) 12.4 % (20.0-45.0) L Monocytes (%) (Auto) 9.1 % (1.0-10.0) Eosinophils (%) (Auto) 0.1 % (0.0-3.0) Basophils (%) (Auto) 1.0 % (0.0-2.0) D-Dimer 16.53 mg/L FEU (0.00-0.49) H Sodium Level 130 MMOL/L (136-145) L Potassium Level 4.5 MMOL/L (3.5-5.1) Chloride Level 94 MMOL/L (98-107) L Carbon Dioxide Level 32 MMOL/L (21-32) Anion Gap 4 mmol/L (5-15) L Blood Urea Nitrogen 18 mg/dL (7-18) Creatinine 0.6 MG/DL (0.55-1.30) Estimat Glomerular Filtration Rate > 60 mL/min (>60) Glucose Level 281 MG/DL (74-106) H Lactic Acid Level 2.10 mmol/L (0.4-2.0) H 1.80 mmol/L (0.66-2.22) Calcium Level 8.2 MG/DL (8.5-10.1) L Total Bilirubin 0.3 MG/DL (0.2-1.0) Aspartate Amino Transf (AST/SGOT) 72 U/L (15-37) H Alanine Aminotransferase (ALT/SGPT) 35 U/L (12-78) Alkaline Phosphatase 203 U/L (46-116) H Lactate Dehydrogenase 416 U/L (81-234) H Total Creatine Kinase 835 U/L (26-308) H Creatine Kinase MB 0.6 NG/ML (0.0-3.6) Creatine Kinase MB Relative Index 0.0 Troponin I 0.205 ng/mL (0.000-0.056) C-Reactive Protein, Quantitative 18.3 mg/dL (0.00-0.90) H Pro-B-Type Natriuretic Peptide 2911 pg/mL (0-125) H Total Protein 7.5 G/DL (6.4-8.2) Albumin 2.5 G/DL (3.4-5.0) L Globulin 5.0 g/dL Albumin/Globulin Ratio 0.5 (1.0-2.7) L HIV (1&2) Antibody Rapid Negative (NEGATIVE) Urine Color Yellow Urine Appearance Clear Urine pH 7 (4.5-8.0) Urine Specific [place] 1.010 (1.005-1.035) Urine Protein 3+ (NEGATIVE) H Urine Glucose (UA) 3+ (NEGATIVE) H Urine Ketones Negative (NEGATIVE) Urine Blood 1+ (NEGATIVE) H Urine Nitrite Negative (NEGATIVE) Urine Bilirubin Negative (NEGATIVE) Urine Urobilinogen 1 MG/DL (0.0-1.0) H Urine Leukocyte Esterase Negative (NEGATIVE) Urine RBC 0-2 /HPF (0 - 0) H Urine WBC 0 /HPF (0 - 0) Urine Squamous Epithelial Cells None /LPF (NONE/OCC) Urine Bacteria None /HPF (NONE) Interleukin 6 (IL-6) Pending Test 08/19/19 21:00 08/20/19 09:25 08/20/19 10:01 08/20/19 12:21 Arterial Blood pH 7.427 (7.350-7.450) 7.450 (7.350-7.450) 7.450 (7.350-7.450) Arterial Blood Partial Pressure CO2 40.2 mmHg (35.0-45.0) 35.8 mmHg (35.0-45.0) 35.8 mmHg (35.0-45.0) Arterial Blood Partial Pressure O2 246.2 mmHg (75.0-100.0) H 172.8 mmHg (75.0-100.0) H 172.8 mmHg (75.0-100.0) H Arterial Blood HCO3 25.9 mmol/L (22.0-26.0) 24.3 mmol/L (22.0-26.0) 24.3 mmol/L (22.0-26.0) Arterial Blood Oxygen Saturation 99.4 % (95-100) 98.9 % (95-100) 98.9 % (95-100) Arterial Blood Base Excess 1.5 (-2-2) 0.8 (-2-2) 0.8 (-2-2) Jag Test Positive Positive Positive Ferritin 420 NG/ML (8-388) H C-Reactive Protein, Quantitative 15.5 mg/dL (0.00-0.90) H Current Medications Medications (Trade) Dose Ordered Sig/Vanessa Route PRN Reason Start Time Stop Time Status Last Admin Dose Admin Albuterol/ Ipratropium (Albuterol/ Ipratropium) 3 ml Q6HRT IN-LINE 08/20/19 01:00 08/25/19 00:59 Apixaban (Eliquis) 2.5 mg BID ORAL 08/20/19 18:00 11/18/19 17:59 Azithromycin (Zithromax) 250 mg DAILY ORAL 08/20/19 09:00 08/23/19 09:01 08/20/19 10:48 Hydroxychloroquine Sulfate (Plaquenil) 200 mg BID ORAL 08/20/19 18:00 08/24/19 09:01 Levetiracetam (Keppra) 1,500 mg Q12HR GT 08/20/19 21:00 09/19/19 20:59 Phenytoin (Dilantin) 250 mg DAILY GT 08/21/19 09:00 09/20/19 08:59 Propofol 100 ml @ 0 mls/hr Q24H IV 08/19/19 20:15 08/21/19 20:14 08/19/19 20:06 Tamsulosin HCl (Flomax) 0.4 mg BEDTIME ORAL 08/20/19 21:00 09/19/19 20:59 Gwen Velásquez MD Aug 20, 2019 14:25
[2019-08-20] MEDS ORDERED: Levophed 4mg/4mL Inj IV ONE (15:46)
[2019-08-20] MEDS: Eliquis 2.5mg tablet ORAL SCH (18:40)
--- NOTE | 2019-08-20 18:45 | Consultation ---
History of Present Illness General Date patient seen: Aug 19, 2019 Chief Complaint: Fever Reason for Consultation: seizures Present Illness HPI 83YO M with HTN, HLD, COPD, CAD, Seizure disorder presenting with cough and shortness of breath. In the ED, patient was found to be tachycardic (130's) and tachypnic (33) and febrile at 101.2. He underwent endotracheal intubation and will be transferred to the ICU for further observation and medical management. Allergies: Coded Allergies: No Known Allergies (Unverified , 02/29/16) Medication History Scheduled Apixaban (Eliquis), 2.5 MG PO BID, (Reported) Ascorbic Acid* (Ascorbic Acid*), 500 MG GT DAILY, (Reported) Aspirin* (Aspirin*), 81 MG ORAL DAILY, (Reported) Atorvastatin Calcium* (Atorvastatin Calcium*), 40 MG ORAL BEDTIME, (Reported) Calcium Carbonate (Calcium), 500 MG PO DAILY, (Reported) Cholecalciferol (Vitamin D3)* (Vitamin D*), 1,000 UNIT ORAL DAILY, (Reported) Docusate Sodium (Docusate Sodium), 10 MG GT DAILY, (Reported) Levetiracetam* (Levetiracetam*), 1,500 MG GT BID, (Reported) Levofloxacin (Levofloxacin*), 500 MG ORAL DAILY Lorazepam* (Ativan*), 0.5 MG ORAL THREE TIMES A DAY, (Reported) Mirtazapine* (Mirtazapine*), 7.5 MG ORAL BEDTIME, (Reported) Multivitamin (Multiple Vitamins), 1 EACH PO DAILY, (Reported) Pantoprazole* (Protonix*), 40 MG ORAL DAILY, (Reported) Phenytoin (Phenytoin*), 250 MG ORAL DAILY, (Reported) Tamsulosin Hcl (Tamsulosin Hcl*), 0.4 MG ORAL BEDTIME, (Reported) Terbinafine Hcl* (Lamisil*), 250 MG GT DAILY, (Reported) Scheduled PRN Acetaminophen* (Acetaminophen*), 650 MG ORAL Q6H PRN for Mild Pain/Temp > 100.5, (Reported) Ipratropium [place] 0.5MG/2.5ML (Ipratropium [place] 0.5MG/2.5ML), 0.5 MG HHN Q4HR PRN for Shortness of Breath, (Reported) Miscellaneous Medications Isosorbide Dinitrate (Isosorbide Dinitrate*), 30 MG ORAL, (Reported) Patient History Healthcare decision maker BRIDGETTE FITZGERALD Resuscitation status Advanced Directive on File Yes Physical Exam Physical Exam Narrative intubated sedated Last 24 Hour Vital Signs Date Time Temp Pulse Resp B/P (MAP) Pulse Ox O2 Delivery O2 Flow Rate FiO2 08/20/19 17:00 20 118/74 Mechanical Ventilator 40 08/20/19 17:00 78 18 112/65 100 Mechanical Ventilator 40 08/20/19 16:30 74 18 40 08/20/19 16:00 16 112/65 Mechanical Ventilator 40 08/20/19 16:00 80 15 112/65 99 Mechanical Ventilator 40 08/20/19 15:00 99.0 86 16 117/62 100 Mechanical Ventilator 40 08/20/19 15:00 16 117/62 Mechanical Ventilator 40 08/20/19 14:00 16 114/72 Mechanical Ventilator 40 08/20/19 14:00 89 16 114/72 98 Mechanical Ventilator 40 08/20/19 13:09 78 18 40 08/20/19 13:00 16 118/65 Mechanical Ventilator 40 08/20/19 13:00 92 16 118/65 98 Mechanical Ventilator 40 08/20/19 12:00 92 16 110/56 100 Mechanical Ventilator 40 08/20/19 12:00 16 110/56 Mechanical Ventilator 40 08/20/19 11:10 78 18 40 08/20/19 11:00 18 125/64 Mechanical Ventilator 40 08/20/19 11:00 87 16 125/64 99 Mechanical Ventilator 40 08/20/19 10:00 16 133/87 Mechanical Ventilator 40 08/20/19 10:00 92 15 133/87 100 Mechanical Ventilator 40 08/20/19 09:00 85 16 128/70 100 Mechanical Ventilator 40 08/20/19 09:00 16 128/70 Mechanical Ventilator 40 08/20/19 08:40 89 18 40 08/20/19 08:03 2.0 40 08/20/19 08:00 18 134/74 Mechanical Ventilator 40 08/20/19 08:00 109 18 134/74 100 Mechanical Ventilator 40 08/20/19 07:30 123 24 40 08/20/19 07:00 16 159/89 Mechanical Ventilator 08/20/19 06:00 82 16 156/81 100 Mechanical Ventilator 2.0 40 08/20/19 06:00 16 156/81 Mechanical Ventilator 08/20/19 05:00 79 16 152/81 100 Mechanical Ventilator 2.0 40 08/20/19 05:00 16 152/81 Mechanical Ventilator 08/20/19 04:40 97 17 40 08/20/19 04:00 17 146/77 Mechanical Ventilator 08/20/19 04:00 87 17 146/77 100 Mechanical Ventilator 2.0 50 08/20/19 03:00 16 146/69 Mechanical Ventilator 08/20/19 03:00 84 16 146/69 100 Mechanical Ventilator 2.0 50 08/20/19 02:20 110 20 50 08/20/19 02:00 86 16 149/82 100 Mechanical Ventilator 2.0 100 08/20/19 02:00 16 149/82 Mechanical Ventilator 08/20/19 01:00 85 16 154/72 100 Mechanical Ventilator 2.0 100 08/20/19 01:00 16 154/72 Mechanical Ventilator 08/20/19 00:00 89 16 156/72 100 Mechanical Ventilator 2.0 100 08/20/19 00:00 16 156/72 Mechanical Ventilator 08/19/19 23:00 92 16 154/87 100 Mechanical Ventilator 08/19/19 23:00 16 154/87 Mechanical Ventilator 08/19/19 22:31 134 200/123 08/19/19 22:00 98 16 166/59 100 Mechanical Ventilator 2.0 100 08/19/19 22:00 16 166/89 Mechanical Ventilator 08/19/19 21:06 122 25 100 08/19/19 21:00 100.5 127 16 191/88 100 Mechanical Ventilator 08/19/19 21:00 16 191/88 Mechanical Ventilator 08/19/19 20:30 16 189/87 Mechanical Ventilator 08/19/19 20:30 129 16 189/87 100 Mechanical Ventilator 08/19/19 20:06 16 151/112 Mechanical Ventilator 08/19/19 20:06 16 151/112 Mechanical Ventilator 08/19/19 20:00 100.3 123 16 156/102 99 Mechanical Ventilator 2.0 100 08/19/19 20:00 16 156/102 Mechanical Ventilator 08/19/19 19:45 119 16 146/106 99 Mechanical Ventilator 2.0 100 08/19/19 19:45 16 146/106 Mechanical Ventilator 08/19/19 19:30 121 16 142/105 99 Mechanical Ventilator 08/19/19 19:30 16 142/105 Mechanical Ventilator 08/19/19 19:02 137 32 100 08/19/19 18:49 100.1 Intake and Output 08/19/19 08/20/19 19:00 07:00 Intake Total 1055 ml Balance 1055 ml Intake Oral 0 ml IV Total 1055 ml Laboratory Tests Test 08/19/19 19:47 08/19/19 20:01 08/19/19 21:00 08/20/19 09:25 Lactic Acid Level 1.80 mmol/L (0.66-2.22) Interleukin 6 (IL-6) Pending Arterial Blood pH 7.427 (7.350-7.450) 7.450 (7.350-7.450) Arterial Blood Partial Pressure CO2 40.2 mmHg (35.0-45.0) 35.8 mmHg (35.0-45.0) Arterial Blood Partial Pressure O2 246.2 mmHg (75.0-100.0) H 172.8 mmHg (75.0-100.0) H Arterial Blood HCO3 25.9 mmol/L (22.0-26.0) 24.3 mmol/L (22.0-26.0) Arterial Blood Oxygen Saturation 99.4 % (95-100) 98.9 % (95-100) Arterial Blood Base Excess 1.5 (-2-2) 0.8 (-2-2) Jag Test Positive Positive Test 08/20/19 10:01 08/20/19 12:21 Arterial Blood pH 7.450 (7.350-7.450) Arterial Blood Partial Pressure CO2 35.8 mmHg (35.0-45.0) Arterial Blood Partial Pressure O2 172.8 mmHg (75.0-100.0) H Arterial Blood HCO3 24.3 mmol/L (22.0-26.0) Arterial Blood Oxygen Saturation 98.9 % (95-100) Arterial Blood Base Excess 0.8 (-2-2) Jag Test Positive Ferritin 420 NG/ML (8-388) H C-Reactive Protein, Quantitative 15.5 mg/dL (0.00-0.90) H Height (Feet): 5 Height (Inches): 8.00 Weight (Pounds): 180 Medications Current Medications Medications (Trade) Dose Ordered Sig/Vanessa Route PRN Reason Start Time Stop Time Status Last Admin Dose Admin Albuterol/ Ipratropium (Albuterol/ Ipratropium) 3 ml Q6HRT IN-LINE 08/20/19 01:00 08/25/19 00:59 Apixaban (Eliquis) 2.5 mg BID ORAL 08/20/19 18:00 11/18/19 17:59 08/20/19 18:40 Azithromycin (Zithromax) 250 mg DAILY ORAL 08/20/19 09:00 08/23/19 09:01 08/20/19 10:48 Hydroxychloroquine Sulfate (Plaquenil) 200 mg BID ORAL 08/20/19 18:00 08/24/19 09:01 Levetiracetam (Keppra) 1,500 mg Q12HR GT 08/20/19 21:00 09/19/19 20:59 Phenytoin (Dilantin) 250 mg DAILY GT 08/21/19 09:00 09/20/19 08:59 Piperacillin Sod/ Tazobactam Sod 3.375 gm/Dextrose 100 ml @ 25 mls/hr EVERY 8 HOURS IVPB 08/20/19 22:00 08/25/19 21:59 Propofol 100 ml @ 0 mls/hr Q24H IV 08/19/19 20:15 08/21/19 20:14 08/19/19 20:06 Tamsulosin HCl (Flomax) 0.4 mg BEDTIME ORAL 08/20/19 21:00 09/19/19 20:59 Vancomycin HCl (Vanco rx to dose) 1 ea DAILY PRN MISC Per rx protocol 08/20/19 14:30 09/19/19 14:29 Vancomycin HCl 1 gm/Dextrose 275 ml @ 183.708 mls/hr Q24H IVPB 08/21/19 18:00 08/26/19 17:59 Vancomycin/Sodium Chloride 275 ml @ 183.333 mls/hr ONCE ONCE IVPB 08/20/19 19:30 08/20/19 20:59 Objective Narrative lethargic, intubated Assessment/Plan Problem List: (1) Suspected 2019 novel coronavirus infection ICD Codes: R68.89 - Other general symptoms and signs SNOMED: 331580936 (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 - Vascular dementia without behavioral disturbance SNOMED: 55497546, 596879972 (3) Uncontrolled seizures ICD Codes: R56.9 - Unspecified convulsions SNOMED: 94403272 (4) History of CVA (cerebrovascular accident) ICD Codes: Z86.73 - Personal history of transient ischemic attack (TIA), and cerebral infarction without residual deficits SNOMED: 453838313 (5) Acute encephalopathy ICD Codes: G93.40 - Encephalopathy, unspecified SNOMED: 6127188 (6) Aspiration pneumonia ICD Codes: J69.0 - Pneumonitis due to inhalation of food and vomit SNOMED: 691036492 (7) Respiratory failure ICD Codes: J96.90 - Respiratory failure, unspecified, unspecified whether with hypoxia or hypercapnia SNOMED: 846006409 Assessment/Plan: icu level of care cont tre and macario Monitor for seizures covid ro started atb wean off sedation when able Ivan Rose MD Aug 20, 2019 18:45
--- NOTE | 2019-08-20 18:46 | Neurology Progress Note ---
Interim History Interim History ROS Limited/Unobtainable: Yes Interim History 83YO M with HTN, HLD, COPD, CAD, Seizure disorder presenting with cough and shortness of breath. In the ED, patient was found to be tachycardic (130's) and tachypnic (33) and febrile at 101.2. He underwent endotracheal intubation and will be transferred to the ICU for further observation and medical management. Still in ER, no seizures reproted Objective Physical Exam Last Vital Signs Date Time Temp Pulse Resp B/P (MAP) Pulse Ox O2 Delivery O2 Flow Rate FiO2 08/20/19 17:00 20 118/74 Mechanical Ventilator 40 08/20/19 17:00 78 100 08/20/19 15:00 99.0 08/20/19 08:03 2.0 Laboratory Tests Test 08/19/19 19:47 08/19/19 20:01 08/19/19 21:00 08/20/19 09:25 Lactic Acid Level 1.80 mmol/L (0.66-2.22) Interleukin 6 (IL-6) Pending Arterial Blood pH 7.427 (7.350-7.450) 7.450 (7.350-7.450) Arterial Blood Partial Pressure CO2 40.2 mmHg (35.0-45.0) 35.8 mmHg (35.0-45.0) Arterial Blood Partial Pressure O2 246.2 mmHg (75.0-100.0) H 172.8 mmHg (75.0-100.0) H Arterial Blood HCO3 25.9 mmol/L (22.0-26.0) 24.3 mmol/L (22.0-26.0) Arterial Blood Oxygen Saturation 99.4 % (95-100) 98.9 % (95-100) Arterial Blood Base Excess 1.5 (-2-2) 0.8 (-2-2) Jag Test Positive Positive Test 08/20/19 10:01 08/20/19 12:21 Arterial Blood pH 7.450 (7.350-7.450) Arterial Blood Partial Pressure CO2 35.8 mmHg (35.0-45.0) Arterial Blood Partial Pressure O2 172.8 mmHg (75.0-100.0) H Arterial Blood HCO3 24.3 mmol/L (22.0-26.0) Arterial Blood Oxygen Saturation 98.9 % (95-100) Arterial Blood Base Excess 0.8 (-2-2) Jag Test Positive Ferritin 420 NG/ML (8-388) H C-Reactive Protein, Quantitative 15.5 mg/dL (0.00-0.90) H Neurologic Exam Objective intubated, sedated, minimal withdraw cc 35 min Impression/Recommendations Problems: (1) Aspiration pneumonia (2) Suspected 2019 novel coronavirus infection (3) Multi-infarct dementia (4) Uncontrolled seizures (5) History of CVA (cerebrovascular accident) (6) Acute encephalopathy (7) Respiratory failure Diagnostic Impression icu level of care cont keevelio and macario Monitor for seizures covid ro started atb wean off sedation when able Ivan Rose MD Aug 20, 2019 18:46
--- NOTE | 2019-08-20 19:09 | NUR ---
HAND-OFF: Report given to Valeriy PAULSON.
--- NOTE | 2019-08-20 19:10 | NUR ---
ED Nurse Note: Received report from Mery PAULSON. Pt has no acute ditress. Profolol drip is running, tolerated well. Afebrile. Droplet isolation observed. Will cont to monitor.
[2019-08-20] MEDS ORDERED: Vancomycin 1.25gm/NS Premix IVPB ONE (19:30)
--- NOTE | 2019-08-20 19:51 | NUR ---
ED Nurse Note: Report given to Celia PAULSON.
--- NOTE | 2019-08-20 20:16 | NUR ---
TRANSFER TO FLOOR: Patient transferred to ICU per ERMD. Report given to Celia PAULSON. Pt a&ox0, non verbal. No acute distress noted. Afebrile. Pt is on profolol 5mcg, tolerated well. IV line on IJ triple lumen patent and intact. FC 16fr patent and draining well. Swabs are sent. Med recon done. Pt has no belongings. Droplet precaution was observed. RN, Tech and RT accompanied the patient.
--- NOTE | 2019-08-20 20:17 | NUR ---
NURSE NOTES: Admitted 87 year old male patient from ER. Endorsement received from EN. Tonia Pineda on the monitor. Patient sedated. Orally intubated with ETT 7.5, 21 lipline. AC 18, VT 450, PEEP 8, 40% Fio2. GT patent and intact. With right IJ TLC. Receiving Propofol 5mcg/kg/min. With RASS goal of -2. Left AC g20 heplock. Swartz catheter F16 draining to urimeter. BEd bath done. Noted with sacral DTI and left heel DTI. Dressings changed. Head of bed elevated. Bed locked, low position. Bed alarm on. Seizure precautions, droplet and contact precautions initiated.
--- NOTE | 2019-08-20 21:00 | NUR ---
NURSE NOTES: Confirmed by charge nurse with Dr Nash, as per him patient needs to continue Propofol drip.
--- NOTE | 2019-08-20 21:30 | NUR ---
NURSE NOTES: Noted with fever, 100.7 orally. Cooling measures initiated. Called Dr. Nash, received and order for PRN Tylenol.
[2019-08-20] MEDS: levETIRAcetam 500mg/5ml Liquid GT SCH (21:57)
[2019-08-20] MEDS: Tamsulosin 0.4mg cap ORAL SCH (21:57)
--- NOTE | 2019-08-20 23:42 | NUR ---
NURSE NOTES: SBP at the 80s, rechecked at another site. Still 80s. Continued to monitor every 15 minutes x3, still at 80s. Called Dr. Nash, left a message. Awaiting for return call.
[2019-08-20] MEDS: Acetaminophen 650mg/20.3ml GT PRN (23:55)
[2019-08-21] VITALS (40 sets, daily range): BP systolic 92–166; BP diastolic 48–116
--- NOTE | 2019-08-21 00:07 | NUR ---
NURSE NOTES: Current BP: 92/61, MAP 69
--- NOTE | 2019-08-21 00:30 | NUR ---
NURSE NOTES: Received return call from Dr. Nash, informed him that BP has become stable. No new order received at this time. Will continue to monitor.
[2019-08-21] MEDS: Albuterol/Ipratropium 3ml neb IN-LINE SCH ×4 (01:00→19:43)
--- NOTE | 2019-08-21 02:00 | NUR ---
NURSE NOTES: Patient asleep. No signs of pain or discomfort. Controlled Afib on the monitor.
--- NOTE | 2019-08-21 04:00 | NUR ---
NURSE NOTES: Patient continues on 5mcg/kg/min. Patient afebrile.
[2019-08-21 05:27] LABS: BASOPHILS % (AUTO) 0.6 % (0.0-2.0); EOSINOPHILS % (AUTO) 0.3 % (0.0-3.0); HEMATOCRIT 42.1 % (42.0-52.0); HEMOGLOBIN 14.6 G/DL (14.2-18.0); LYMPHOCYTES % (AUTO) 25.2 % (20.0-45.0); MEAN CORPUSCULAR VOLUME 89 FL (80-99); NEUTROPHILS % (AUTO) 64.9 % (45.0-75.0); PLATELET COUNT 150 K/UL (150-450); RED BLOOD COUNT 4.73 M/UL (4.70-6.10); RED CELL DISTRIBUTION WIDTH 12.2 % (11.6-14.8); WHITE BLOOD COUNT 5.7 K/UL (4.8-10.8)
[2019-08-21 06:09] LABS: ANION GAP 12 mmol/L (5-15); BLOOD UREA NITROGEN 28 mg/dL (7-18); CALCIUM 7.9 MG/DL (8.5-10.1); CARBON DIOXIDE 25 MMOL/L (21-32); CHLORIDE 99 MMOL/L (98-107); CREATININE 0.9 MG/DL (0.55-1.30); POTASSIUM 3.4 MMOL/L (3.5-5.1); SODIUM 136 MMOL/L (136-145)
--- NOTE | 2019-08-21 06:20 | NUR ---
NURSE NOTES: Rafia level 35.3, sent a message to the Pharmacy.
--- NOTE | 2019-08-21 06:37 | NUR ---
NURSE NOTES: Called Dr. Walker's exchange, left a message for dilantin level result
--- NOTE | 2019-08-21 06:46 | NUR ---
NURSE NOTES: Received a return call from Dr Quigley, Dr Walker's oncall at this time. Relayed the dilantin level, informed him that patient is on Dilantin 250mg/GT OD. As per him he will inform Dr. Corral. No new order receied at this time.
--- NOTE | 2019-08-21 07:17 | NUR ---
HAND-OFF: Report given to LORENE Rocha.
--- NOTE | 2019-08-21 08:53 | NUR ---
RD ASSESSMENT & RECOMMENDATIONS SEE CARE ACTIVITY FOR COMPLETE ASSESSMENT DAILY ESTIMATED NEEDS: Needs based on Critical care, Wounds/ 53kg abw 22-28 kcals/kg 2162-4566 total kcals 1.25-2 g protein/kg 66-106 g total protein 25-30 mL/kg 6780-2529 total fluid mLs NUTRITION DIAGNOSIS: * Swallowing difficulty R/T dysphagia as evidenced by PEG dep, s/p intubation, NPO at this time. * Increased kcal/prot needs R/T wound healing as evidenced by pt admitted w/ sacral and Lt heel wounds per photos, pending eval. CURRENT TF:NPO ENTERAL NUTRITION RECOMMENDATIONS: Glucerna 1.2 @ 50ml/hr x 22 hrs (hold 1 hr before and after Dilantin QD) to provide 1100ml, 1320kcal, 66g prot, 886ml free water * Once medically appropriate, initiate TF. Rec Glucerna 1.2 for carb control, BGs elevated. * Initiate Glucerna 1.2 @ 20ml/hr x 6 hrs, advance 10ml q 4-6 hrs as tolerated to goal rate. * Hold 1 hr before and after Dilantin med * HOB over 30 degrees/ without IVF, H20 flush of 150ml q 6 hrs ADDITIONAL RECOMMENDATIONS: * Per SNF record, ht is 60", wt is 149lbs (08/14/19) Rec calibrated bedscale wt * Rec NISS w/ TF: BGs elevated * Wound healing: add Vit C 500mg QD : Giancarlo 1pkt BID w/ TF * Monitor lytes, replete as needed
--- NOTE | 2019-08-21 08:58 | Neurology Progress Note ---
Interim History Interim History ROS Limited/Unobtainable: Yes Interim History intubated, sedated on propofol Objective Physical Exam Last Vital Signs Date Time Temp Pulse Resp B/P (MAP) Pulse Ox O2 Delivery O2 Flow Rate FiO2 08/21/19 08:00 99.1 79 18 124/68 (86) 99 08/21/19 07:10 40 08/21/19 07:00 Mechanical Ventilator 08/20/19 20:16 2.0 Laboratory Tests Test 08/20/19 09:25 08/20/19 10:01 08/20/19 12:21 08/21/19 04:00 Arterial Blood pH 7.450 (7.350-7.450) 7.450 (7.350-7.450) Arterial Blood Partial Pressure CO2 35.8 mmHg (35.0-45.0) 35.8 mmHg (35.0-45.0) Arterial Blood Partial Pressure O2 172.8 mmHg (75.0-100.0) H 172.8 mmHg (75.0-100.0) H Arterial Blood HCO3 24.3 mmol/L (22.0-26.0) 24.3 mmol/L (22.0-26.0) Arterial Blood Oxygen Saturation 98.9 % (95-100) 98.9 % (95-100) Arterial Blood Base Excess 0.8 (-2-2) 0.8 (-2-2) Jag Test Positive Positive Ferritin 420 NG/ML (8-388) H C-Reactive Protein, Quantitative 15.5 mg/dL (0.00-0.90) H Triglycerides Level 137 MG/DL (30-150) White Blood Count 5.7 K/UL (4.8-10.8) Red Blood Count 4.73 M/UL (4.70-6.10) Hemoglobin 14.6 G/DL (14.2-18.0) Hematocrit 42.1 % (42.0-52.0) Mean Corpuscular Volume 89 FL (80-99) Mean Corpuscular Hemoglobin 30.9 PG (27.0-31.0) Mean Corpuscular Hemoglobin Concent 34.7 G/DL (32.0-36.0) Red Cell Distribution Width 12.2 % (11.6-14.8) Platelet Count 150 K/UL (150-450) Mean Platelet Volume 6.9 FL (6.5-10.1) Neutrophils (%) (Auto) 64.9 % (45.0-75.0) Lymphocytes (%) (Auto) 25.2 % (20.0-45.0) Monocytes (%) (Auto) 9.0 % (1.0-10.0) Eosinophils (%) (Auto) 0.3 % (0.0-3.0) Basophils (%) (Auto) 0.6 % (0.0-2.0) Sodium Level 136 MMOL/L (136-145) Potassium Level 3.4 MMOL/L (3.5-5.1) L Chloride Level 99 MMOL/L (98-107) Carbon Dioxide Level 25 MMOL/L (21-32) Anion Gap 12 mmol/L (5-15) Blood Urea Nitrogen 28 mg/dL (7-18) H Creatinine 0.9 MG/DL (0.55-1.30) Estimat Glomerular Filtration Rate > 60 mL/min (>60) Glucose Level 160 MG/DL (74-106) #H Calcium Level 7.9 MG/DL (8.5-10.1) L Phenytoin (Dilantin) Level 35.3 ug/mL (10-20) *H Neurologic Exam Objective intubated, sedated, minimal withdraw cc 35 min Impression/Recommendations Problems: (1) Aspiration pneumonia (2) Suspected 2019 novel coronavirus infection (3) Multi-infarct dementia (4) Uncontrolled seizures (5) History of CVA (cerebrovascular accident) (6) Acute encephalopathy (7) Respiratory failure Diagnostic Impression icu level of care cont keppra and dilantin Monitor for seizures covid ro started atb wean off sedation when able Ivan Rose MD Aug 21, 2019 08:58
--- NOTE | 2019-08-21 09:15 | NUR ---
NURSE NOTES: Dr. Pagan rounded on patient and updated at the bedside. no verbal orders given at this time.
[2019-08-21] MEDS: Azithromycin 250mg tab ORAL SCH (10:13)
[2019-08-21] MEDS: levETIRAcetam 500mg/5ml Liquid GT SCH ×2 (10:14→21:06)
[2019-08-21] MEDS: Eliquis 2.5mg tablet ORAL SCH ×2 (10:14→18:31)
--- NOTE | 2019-08-21 11:00 | NUR ---
NURSE NOTES: Dr. Nash assessed patient at the bedside, ordered to have ferretin and CRP to be done daily. also ordered to have ABG given and 60mEq to be given through g-tube. no further orders given at this time.
--- NOTE | 2019-08-21 11:30 | NUR ---
NURSE NOTES:WOUND CARE NOTES:Pt presented on admission with Sacral DTPI. Base of wound is purple with maroon borders. Unstageable pressure injury Plantar L heel . Base of wound is necrotic with marginal erythema along borders. Non-blanching erythema R heel. Tx.Plan:Apply Moisture Barrier Paste to Sacrum. Cover with Optifoam drsg. Change every 3 days and prn. Apply Betadine to Plantar L heel. Cover with Optifoam drsg. Change every 3 days and prn. Apply Cavilon Skin Barrier to R heel. Cover with Optifoam drsg. Change every 7 days and Prn. Reposition at least every 2hours or as tolerated. Off-load heels with pillow.
--- NOTE | 2019-08-21 11:46 | Pulmonolgy Critical Care Note ---
Critical Care - Asmt/Plan Problems: (1) Respiratory failure (2) Suspected 2019 novel coronavirus infection (3) History of CVA (cerebrovascular accident) (4) Acute encephalopathy (5) Multi-infarct dementia (6) Uncontrolled seizures Assessment/Plan: Continue ventilatory support, settings reviewed: TV 450 AC 14 PEEP 8 FiO2 40 LPV Monitor gas exchange STRONGLY CONSIDER HHN's in line with Vent May consider GC's based on trajectory Plaquenil (D2) Vanco/Zosyn/Azithro per ID COVID labs sent, F/U IL6 (pending), HIV negative, daily CRP and ferritin D/W pharmacy RE: Tociluzumab - per pharmacist on national shortage and cannot get, will continue to follow up Remdesivir limited to trial, cannot get under compassionate care Monitor volumes and renal function NPO, start TF's once stable and transferred up to ICU Propfol gtt, monitor TG's F/U neuro recs, continue AED's TF's DVT Px: Eliquis FC, continue to discuss GOC Disposition: keep in ICU Time Spent (Minutes): 40 Notes Reviewed: merchandise presentation associate, ID, neuro Discussed with: nurses, consultants Critical Care - Objective Last 24 Hour Vital Signs Date Time Temp Pulse Resp B/P (MAP) Pulse Ox O2 Delivery O2 Flow Rate FiO2 08/21/19 11:12 78 08/21/19 11:10 68 16 40 08/21/19 09:05 80 18 40 08/21/19 08:00 Mechanical Ventilator 08/21/19 08:00 40 08/21/19 08:00 99.1 79 18 124/68 (86) 99 08/21/19 07:10 77 18 40 08/21/19 07:00 18 111/60 Mechanical Ventilator 40 08/21/19 07:00 109 18 111/60 (77) 99 08/21/19 06:19 108 18 08/21/19 06:00 18 117/84 Mechanical Ventilator 40 08/21/19 06:00 108 18 104/66 (79) 98 08/21/19 05:26 96 18 40 08/21/19 05:00 102 18 115/76 (89) 96 08/21/19 05:00 18 123/74 Mechanical Ventilator 08/21/19 04:00 40 08/21/19 04:00 Mechanical Ventilator 08/21/19 04:00 18 135/69 Mechanical Ventilator 08/21/19 04:00 98.8 105 18 125/91 (102) 90 08/21/19 04:00 106 08/21/19 03:29 89 18 40 08/21/19 03:00 18 139/103 Mechanical Ventilator 40 08/21/19 03:00 92 18 103/70 (81) 98 08/21/19 02:00 18 103/68 Mechanical Ventilator 40 08/21/19 02:00 99 18 113/83 (93) 98 08/21/19 01:45 99.4 08/21/19 01:30 91 18 40 08/21/19 01:00 18 128/80 Mechanical Ventilator 40 08/21/19 01:00 98 19 125/80 (95) 94 08/21/19 00:00 107 18 92/61 (71) 95 08/21/19 00:00 Mechanical Ventilator 08/21/19 00:00 18 92/61 Mechanical Ventilator 40 08/21/19 00:00 40 08/21/19 00:00 109 08/20/19 23:05 Mechanical Ventilator 08/20/19 23:00 18 112/87 Mechanical Ventilator 40 08/20/19 23:00 120 18 77/59 (65) 99 08/20/19 22:00 99.4 128 18 130/83 (99) 08/20/19 21:58 20 104/78 Mechanical Ventilator 40 08/20/19 21:45 139 19 104/78 (87) 99 08/20/19 21:30 133 18 108/72 (84) 99 08/20/19 21:15 135 18 104/86 (92) 100 08/20/19 21:00 100.7 144 19 127/87 (100) 99 08/20/19 20:56 143 18 140/92 (108) 98 08/20/19 20:30 146 08/20/19 20:17 97 20 40 08/20/19 20:16 98.6 92 19 125/69 99 Mechanical Ventilator 08/20/19 20:16 98.6 92 19 125/69 99 Mechanical Ventilator 2.0 40 08/20/19 20:00 25 120/67 Mechanical Ventilator 40 08/20/19 19:10 98.6 99 23 121/66 100 Mechanical Ventilator 08/20/19 19:00 16 124/76 Mechanical Ventilator 40 08/20/19 18:00 16 129/63 Mechanical Ventilator 40 08/20/19 17:00 20 118/74 Mechanical Ventilator 40 08/20/19 17:00 78 18 112/65 100 Mechanical Ventilator 40 08/20/19 16:30 74 18 40 08/20/19 16:00 16 112/65 Mechanical Ventilator 40 08/20/19 16:00 80 15 112/65 99 Mechanical Ventilator 40 08/20/19 15:00 99.0 86 16 117/62 100 Mechanical Ventilator 40 08/20/19 15:00 16 117/62 Mechanical Ventilator 40 08/20/19 14:00 16 114/72 Mechanical Ventilator 40 08/20/19 14:00 89 16 114/72 98 Mechanical Ventilator 40 08/20/19 13:09 78 18 40 08/20/19 13:00 16 118/65 Mechanical Ventilator 40 08/20/19 13:00 92 16 118/65 98 Mechanical Ventilator 40 08/20/19 12:00 92 16 110/56 100 Mechanical Ventilator 40 08/20/19 12:00 16 110/56 Mechanical Ventilator 40 Status: other - Intubated, on propofol gtt, on vent Condition: critical, other - no distress Heart: HR/BP stable Micro: Microbiology Date/Time Source Procedure Growth Status 08/19/19 17:30 Blood Blood Culture - Preliminary NO GROWTH AFTER 24 HOURS Resulted 08/19/19 17:15 Blood Blood Culture - Preliminary NO GROWTH AFTER 24 HOURS Resulted 08/19/19 18:30 Nasal Nares Right MRSA Culture - Final NO METHICILLIN RESISTANT STAPH AUREUS... Complete 08/19/19 18:30 Nasal Nares - Final Complete 08/19/19 18:30 Nasal Nares - Final Complete 08/19/19 18:30 Rectum - Final NO CARBAPENEM-RESISTANT ENTEROBACTERI... Complete 08/19/19 18:30 Rectum VRE Culture - Final NO VANCOMYCIN RESISTANT ENTEROCOCCUS ... Complete Blood Sugars: BS controlled Critical Care - Subjective ROS Limited/Unobtainable: Yes ICU Day: 2 Intubation Day: 3 Interval Events: Tx'd to ICU, stable on vent FiO2 40/PEEP 8, no sig secretions, has been afebrile , sedated, COVID still pending, remainder of Cx's NG Condition: critical IV Access: central - R IJ EKG Rhythm: Sinus Rhythm FI02: 40 Vent Support Breath Rate: 18 Vent Support Mode: AC Vent Tidal Volume: 450 Sputum Amount: Scant PEEP: 8.0 PIP: 35 Secretions: minimal Fluids: SLIV Drips: Propofol I&O: Intake and Output 08/20/19 08/21/19 19:00 07:00 Intake Total 394.224 ml Output Total 420 ml Balance -25.776 ml IV Total 394.224 ml Output Urine Total 420 ml # Bowel Movements 2 Subjective: REYMUNDO CXR: ETT, NAD ET-Tube: 7.5 ET Position: 21 Labs: Laboratory Tests Test 08/20/19 12:21 08/21/19 04:00 Ferritin 420 NG/ML (8-388) H C-Reactive Protein, Quantitative 15.5 mg/dL (0.00-0.90) H Triglycerides Level 137 MG/DL (30-150) White Blood Count 5.7 K/UL (4.8-10.8) Red Blood Count 4.73 M/UL (4.70-6.10) Hemoglobin 14.6 G/DL (14.2-18.0) Hematocrit 42.1 % (42.0-52.0) Mean Corpuscular Volume 89 FL (80-99) Mean Corpuscular Hemoglobin 30.9 PG (27.0-31.0) Mean Corpuscular Hemoglobin Concent 34.7 G/DL (32.0-36.0) Red Cell Distribution Width 12.2 % (11.6-14.8) Platelet Count 150 K/UL (150-450) Mean Platelet Volume 6.9 FL (6.5-10.1) Neutrophils (%) (Auto) 64.9 % (45.0-75.0) Lymphocytes (%) (Auto) 25.2 % (20.0-45.0) Monocytes (%) (Auto) 9.0 % (1.0-10.0) Eosinophils (%) (Auto) 0.3 % (0.0-3.0) Basophils (%) (Auto) 0.6 % (0.0-2.0) Sodium Level 136 MMOL/L (136-145) Potassium Level 3.4 MMOL/L (3.5-5.1) L Chloride Level 99 MMOL/L (98-107) Carbon Dioxide Level 25 MMOL/L (21-32) Anion Gap 12 mmol/L (5-15) Blood Urea Nitrogen 28 mg/dL (7-18) H Creatinine 0.9 MG/DL (0.55-1.30) Estimat Glomerular Filtration Rate > 60 mL/min (>60) Glucose Level 160 MG/DL (74-106) #H Calcium Level 7.9 MG/DL (8.5-10.1) L Phenytoin (Dilantin) Level 35.3 ug/mL (10-20) *H David Nash MD Aug 21, 2019 11:46
--- NOTE | 2019-08-21 12:07 | General Progress Note ---
Assessment/Plan Assessment/Plan: 83YO M with HTN, HLD, COPD, CAD, Seizure disorder presenting with cough and shortness of breath. In the ED, patient was found to be tachycardic (130's) and tachypnic (33) and febrile at 101.2. He underwent endotracheal intubation and will be transferred to the ICU for further observation and medical management. #Hypoxemic acute respiratory failure #Severe sepsis 2/2 CAP #Concern for COVID19 -Appreciate ICU care -Pulm/CCM eval appreciated -cont Plaquenil, Azithro, ceftriaxone -Continuous inspector government property. -Continue vent management per the ICU team. -Daily labs. -Blood cultures pending -Contact plus isolation. -ID following #History of Seizure disorder: -cont Dilantin and Keppra -Neurology consulted, Dr. Rose #HTN #HLD #CAD #Eliquis use I spent 75 minutes on this patient's case, and 36 mins was dedicated to critical care Critical Care Services performed include: Telemetry Review Hemodynamic measurement interpretation Laboratory data review and interpretation Radiology image review and interpretation Ventilator setting review, management, and adjustment Interpretation of ABG's Discussion of patient's care with ICU team, ICU Nursing staff and/or consulting services Subjective Date patient seen: Aug 21, 2019 Time patient seen: 12:03 ROS Limited/Unobtainable: Yes Allergies: Coded Allergies: No Known Allergies (Unverified , 02/29/16) Subjective Follow up for acute hypoxic resp failure, possible cap, rule out Covid19. Remains intubated, VSS. Objective Last 24 Hour Vital Signs Date Time Temp Pulse Resp B/P (MAP) Pulse Ox O2 Delivery O2 Flow Rate FiO2 08/21/19 11:12 78 08/21/19 11:10 68 16 40 08/21/19 09:05 80 18 40 08/21/19 08:00 Mechanical Ventilator 08/21/19 08:00 40 08/21/19 08:00 99.1 79 18 124/68 (86) 99 08/21/19 07:10 77 18 40 08/21/19 07:00 18 111/60 Mechanical Ventilator 40 08/21/19 07:00 109 18 111/60 (77) 99 08/21/19 06:19 108 18 08/21/19 06:00 18 117/84 Mechanical Ventilator 40 08/21/19 06:00 108 18 104/66 (79) 98 08/21/19 05:26 96 18 40 08/21/19 05:00 102 18 115/76 (89) 96 08/21/19 05:00 18 123/74 Mechanical Ventilator 08/21/19 04:00 40 08/21/19 04:00 Mechanical Ventilator 08/21/19 04:00 18 135/69 Mechanical Ventilator 08/21/19 04:00 98.8 105 18 125/91 (102) 90 08/21/19 04:00 106 08/21/19 03:29 89 18 40 08/21/19 03:00 18 139/103 Mechanical Ventilator 40 08/21/19 03:00 92 18 103/70 (81) 98 08/21/19 02:00 18 103/68 Mechanical Ventilator 40 08/21/19 02:00 99 18 113/83 (93) 98 08/21/19 01:45 99.4 08/21/19 01:30 91 18 40 08/21/19 01:00 18 128/80 Mechanical Ventilator 40 08/21/19 01:00 98 19 125/80 (95) 94 08/21/19 00:00 107 18 92/61 (71) 95 08/21/19 00:00 Mechanical Ventilator 08/21/19 00:00 18 92/61 Mechanical Ventilator 40 08/21/19 00:00 40 08/21/19 00:00 109 08/20/19 23:05 Mechanical Ventilator 08/20/19 23:00 18 112/87 Mechanical Ventilator 40 08/20/19 23:00 120 18 77/59 (65) 99 08/20/19 22:00 99.4 128 18 130/83 (99) 08/20/19 21:58 20 104/78 Mechanical Ventilator 40 08/20/19 21:45 139 19 104/78 (87) 99 08/20/19 21:30 133 18 108/72 (84) 99 08/20/19 21:15 135 18 104/86 (92) 100 08/20/19 21:00 100.7 144 19 127/87 (100) 99 08/20/19 20:56 143 18 140/92 (108) 98 08/20/19 20:30 146 08/20/19 20:17 97 20 40 08/20/19 20:16 98.6 92 19 125/69 99 Mechanical Ventilator 08/20/19 20:16 98.6 92 19 125/69 99 Mechanical Ventilator 2.0 40 08/20/19 20:00 25 120/67 Mechanical Ventilator 40 08/20/19 19:10 98.6 99 23 121/66 100 Mechanical Ventilator 08/20/19 19:00 16 124/76 Mechanical Ventilator 40 08/20/19 18:00 16 129/63 Mechanical Ventilator 40 08/20/19 17:00 20 118/74 Mechanical Ventilator 40 08/20/19 17:00 78 18 112/65 100 Mechanical Ventilator 40 08/20/19 16:30 74 18 40 08/20/19 16:00 16 112/65 Mechanical Ventilator 40 08/20/19 16:00 80 15 112/65 99 Mechanical Ventilator 40 08/20/19 15:00 99.0 86 16 117/62 100 Mechanical Ventilator 40 08/20/19 15:00 16 117/62 Mechanical Ventilator 40 08/20/19 14:00 16 114/72 Mechanical Ventilator 40 08/20/19 14:00 89 16 114/72 98 Mechanical Ventilator 40 08/20/19 13:09 78 18 40 08/20/19 13:00 16 118/65 Mechanical Ventilator 40 08/20/19 13:00 92 16 118/65 98 Mechanical Ventilator 40 Intake and Output 08/20/19 08/21/19 19:00 07:00 Intake Total 394.224 ml Output Total 420 ml Balance -25.776 ml IV Total 394.224 ml Output Urine Total 420 ml # Bowel Movements 2 Laboratory Tests 08/20/19 12:21: Ferritin 420H, C-Reactive Protein, Quantitative 15.5H, Triglycerides Level 137 08/21/19 04:00: White Blood Count 5.7, Red Blood Count 4.73, Hemoglobin 14.6, Hematocrit 42.1, Mean Corpuscular Volume 89, Mean Corpuscular Hemoglobin 30.9, Mean Corpuscular Hemoglobin Concent 34.7, Red Cell Distribution Width 12.2, Platelet Count 150, Mean Platelet Volume 6.9, Neutrophils (%) (Auto) 64.9, Lymphocytes (%) (Auto) 25.2, Monocytes (%) (Auto) 9.0, Eosinophils (%) (Auto) 0.3, Basophils (%) (Auto ) 0.6, Sodium Level 136, Potassium Level 3.4L, Chloride Level 99, Carbon Dioxide Level 25, Anion Gap 12, Blood Urea Nitrogen 28H, Creatinine 0.9, Estimat Glomerular Filtration Rate > 60, Glucose Level 160#H, Calcium Level 7.9L , Phenytoin (Dilantin) Level 35.3*H Height (Feet): 5 Height (Inches): 8.00 Weight (Pounds): 157 General Appearance: lethargic Respiratory/Chest: lungs clear, normal breath sounds Abdomen: non tender, soft Sergo Demarco MD Aug 21, 2019 12:07
--- NOTE | 2019-08-21 12:35 | NUR ---
MAILING MACHINE HELPER NOTE PT was transferred to ICU on 08/20/2019. Pt is intubated and non-verbal. SW spoke w/ pt's son, David Montgomery [phone] and obtained information. Pt has two adult sons. David Montgomery is the primary contact and POA of pt. Per David, his brother Esa Montgomery is not actively involved in pt's tx and care. David confirmed full code and he also confirmed pt can return [facility] upon DC.
--- NOTE | 2019-08-21 14:05 | NUR ---
NURSE NOTES: Dr. Albert made aware of positive coronavirus results fax from [facility]. no verbal orders given at this time.
--- NOTE | 2019-08-21 15:00 | NUR ---
NURSE NOTES: Ventilator TV 400 setting changed after results of ABG were relayed to Dr. Nash. no further orders given at this time.
[2019-08-21] MEDS: Vancomycin 1gm/D5W 275ml IVPB SCH ×2 (18:30)
--- NOTE | 2019-08-21 18:30 | NUR ---
NURSE NOTES: Dr. Watts rounded on patient and updated on condition, no verbal orders given.
--- NOTE | 2019-08-21 18:49 | Infectious Diseases Prog Note ---
Assessment/Plan Assessment/Plan Full consult dictated: A) 1) covid-19 + , sepsis, shock, fevers 2) respiratory failure, pna 3) pmh noted 4) allergies - nkda P) 1) vancomycin, zosyn, azithromycin, hydroxychloroquine - day # 3 2) f/u on cultures, labs and chest x-ray 3) continue aggressive supportive care 4) thank you Subjective Allergies: Coded Allergies: No Known Allergies (Unverified , 02/29/16) Objective Vital Signs Last 24 Hour Vital Signs Date Time Temp Pulse Resp B/P (MAP) Pulse Ox O2 Delivery O2 Flow Rate FiO2 08/21/19 17:25 95 18 40 08/21/19 17:00 80 20 147/78 (101) 100 08/21/19 16:00 Mechanical Ventilator 08/21/19 16:00 81 18 152/48 (82) 100 08/21/19 16:00 40 08/21/19 15:05 81 18 40 08/21/19 15:00 83 18 151/81 (104) 100 08/21/19 14:08 18 166/69 Mechanical Ventilator 40 08/21/19 14:00 78 18 166/69 (101) 100 08/21/19 13:05 81 18 40 08/21/19 13:00 66 18 134/74 (94) 96 08/21/19 12:30 79 18 138/75 (96) 100 08/21/19 12:00 82 08/21/19 12:00 40 08/21/19 12:00 99.0 79 18 128/74 (92) 100 08/21/19 12:00 Mechanical Ventilator 08/21/19 11:30 83 18 122/72 (89) 99 08/21/19 11:10 68 16 40 08/21/19 11:00 83 18 136/80 (98) 99 08/21/19 10:30 83 18 160/79 (106) 99 08/21/19 10:00 80 18 137/72 (93) 99 08/21/19 09:30 79 18 132/91 (105) 99 08/21/19 09:05 80 18 40 08/21/19 09:00 78 18 130/65 (86) 99 08/21/19 08:30 78 18 120/72 (88) 99 08/21/19 08:00 Mechanical Ventilator 08/21/19 08:00 40 08/21/19 08:00 78 08/21/19 08:00 99.1 79 18 124/68 (86) 99 08/21/19 07:30 80 18 116/52 (73) 99 08/21/19 07:10 77 18 40 08/21/19 07:00 18 111/60 Mechanical Ventilator 40 08/21/19 07:00 109 18 111/60 (77) 99 08/21/19 06:19 108 18 08/21/19 06:00 18 117/84 Mechanical Ventilator 40 08/21/19 06:00 108 18 104/66 (79) 98 08/21/19 05:26 96 18 40 08/21/19 05:00 102 18 115/76 (89) 96 08/21/19 05:00 18 123/74 Mechanical Ventilator 08/21/19 04:00 40 08/21/19 04:00 Mechanical Ventilator 08/21/19 04:00 18 135/69 Mechanical Ventilator 08/21/19 04:00 98.8 105 18 125/91 (102) 90 08/21/19 04:00 106 08/21/19 03:29 89 18 40 08/21/19 03:00 18 139/103 Mechanical Ventilator 40 08/21/19 03:00 92 18 103/70 (81) 98 08/21/19 02:00 18 103/68 Mechanical Ventilator 40 08/21/19 02:00 99 18 113/83 (93) 98 08/21/19 01:45 99.4 08/21/19 01:30 91 18 40 08/21/19 01:00 18 128/80 Mechanical Ventilator 40 08/21/19 01:00 98 19 125/80 (95) 94 08/21/19 00:00 107 18 92/61 (71) 95 08/21/19 00:00 Mechanical Ventilator 08/21/19 00:00 18 92/61 Mechanical Ventilator 40 08/21/19 00:00 40 08/21/19 00:00 109 08/20/19 23:05 Mechanical Ventilator 08/20/19 23:00 18 112/87 Mechanical Ventilator 40 08/20/19 23:00 120 18 77/59 (65) 99 08/20/19 22:00 99.4 128 18 130/83 (99) 08/20/19 21:58 20 104/78 Mechanical Ventilator 40 08/20/19 21:45 139 19 104/78 (87) 99 08/20/19 21:30 133 18 108/72 (84) 99 08/20/19 21:15 135 18 104/86 (92) 100 08/20/19 21:00 100.7 144 19 127/87 (100) 99 08/20/19 20:56 143 18 140/92 (108) 98 08/20/19 20:30 146 08/20/19 20:17 97 20 40 08/20/19 20:16 98.6 92 19 125/69 99 Mechanical Ventilator 08/20/19 20:16 98.6 92 19 125/69 99 Mechanical Ventilator 2.0 40 08/20/19 20:00 25 120/67 Mechanical Ventilator 40 08/20/19 19:10 98.6 99 23 121/66 100 Mechanical Ventilator 08/20/19 19:00 16 124/76 Mechanical Ventilator 40 Height (Feet): 5 Height (Inches): 8.00 Weight (Pounds): 157 Microbiology Date/Time Source Procedure Growth Status 08/19/19 17:30 Blood Blood Culture - Preliminary NO GROWTH AFTER 24 HOURS Resulted 08/19/19 17:15 Blood Blood Culture - Preliminary NO GROWTH AFTER 24 HOURS Resulted 08/19/19 18:30 Nasal Nares Right MRSA Culture - Final NO METHICILLIN RESISTANT STAPH AUREUS... Complete 08/19/19 18:30 Nasal Nares - Final Complete 08/19/19 18:30 Nasal Nares - Final Complete 08/19/19 18:30 Rectum - Final NO CARBAPENEM-RESISTANT ENTEROBACTERI... Complete 08/19/19 18:30 Rectum VRE Culture - Final NO VANCOMYCIN RESISTANT ENTEROCOCCUS ... Complete Laboratory Tests Test 08/21/19 04:00 08/21/19 13:48 White Blood Count 5.7 K/UL (4.8-10.8) Red Blood Count 4.73 M/UL (4.70-6.10) Hemoglobin 14.6 G/DL (14.2-18.0) Hematocrit 42.1 % (42.0-52.0) Mean Corpuscular Volume 89 FL (80-99) Mean Corpuscular Hemoglobin 30.9 PG (27.0-31.0) Mean Corpuscular Hemoglobin Concent 34.7 G/DL (32.0-36.0) Red Cell Distribution Width 12.2 % (11.6-14.8) Platelet Count 150 K/UL (150-450) Mean Platelet Volume 6.9 FL (6.5-10.1) Neutrophils (%) (Auto) 64.9 % (45.0-75.0) Lymphocytes (%) (Auto) 25.2 % (20.0-45.0) Monocytes (%) (Auto) 9.0 % (1.0-10.0) Eosinophils (%) (Auto) 0.3 % (0.0-3.0) Basophils (%) (Auto) 0.6 % (0.0-2.0) Sodium Level 136 MMOL/L (136-145) Potassium Level 3.4 MMOL/L (3.5-5.1) L Chloride Level 99 MMOL/L (98-107) Carbon Dioxide Level 25 MMOL/L (21-32) Anion Gap 12 mmol/L (5-15) Blood Urea Nitrogen 28 mg/dL (7-18) H Creatinine 0.9 MG/DL (0.55-1.30) Estimat Glomerular Filtration Rate > 60 mL/min (>60) Glucose Level 160 MG/DL (74-106) #H Calcium Level 7.9 MG/DL (8.5-10.1) L Phenytoin (Dilantin) Level 35.3 ug/mL (10-20) *H Arterial Blood pH 7.502 (7.350-7.450) Arterial Blood Partial Pressure CO2 31.3 mmHg (35.0-45.0) L Arterial Blood Partial Pressure O2 100.7 mmHg (75.0-100.0) H Arterial Blood HCO3 24.0 mmol/L (22.0-26.0) Arterial Blood Oxygen Saturation 97.7 % (95-100) Arterial Blood Base Excess 1.6 (-2-2) Jag Test Positive Current Medications Medications (Trade) Dose Ordered Sig/Vanessa Route PRN Reason Start Time Stop Time Status Last Admin Dose Admin Acetaminophen (Tylenol) 650 mg EVERY 6 HOURS PRN GT Temp >100.5 08/20/19 22:00 09/19/19 21:59 08/20/19 23:55 Albuterol/ Ipratropium (Albuterol/ Ipratropium) 3 ml Q6HRT IN-LINE 08/20/19 01:00 08/25/19 00:59 Apixaban (Eliquis) 2.5 mg BID ORAL 08/20/19 18:00 11/18/19 17:59 08/21/19 18:31 Azithromycin (Zithromax) 250 mg DAILY ORAL 08/20/19 09:00 08/23/19 09:01 08/21/19 10:13 Chlorhexidine Gluconate (Antonella-Hex 2%) 1 applic DAILY@2000 TOPIC 08/21/19 20:00 11/19/19 19:59 Hydroxychloroquine Sulfate (Plaquenil) 200 mg BID ORAL 08/20/19 18:00 08/24/19 09:01 08/21/19 18:31 Levetiracetam (Keppra) 1,500 mg Q12HR GT 08/20/19 21:00 09/19/19 20:59 08/21/19 10:14 Phenytoin (Dilantin) 250 mg DAILY GT 08/21/19 09:00 09/20/19 08:59 Future Hold Piperacillin Sod/ Tazobactam Sod 3.375 gm/Dextrose 100 ml @ 25 mls/hr EVERY 8 HOURS IVPB 08/20/19 22:00 08/25/19 21:59 08/21/19 14:05 Propofol 100 ml @ 0 mls/hr Q24H IV 08/20/19 21:30 08/22/19 21:29 08/21/19 14:08 Tamsulosin HCl (Flomax) 0.4 mg BEDTIME ORAL 08/20/19 21:00 09/19/19 20:59 08/20/19 21:57 Vancomycin HCl (Vanco rx to dose) 1 ea DAILY PRN MISC Per rx protocol 08/20/19 14:30 09/19/19 14:29 Vancomycin HCl 1 gm/Dextrose 275 ml @ 183.708 mls/hr Q24H IVPB 08/21/19 18:00 08/26/19 17:59 08/21/19 18:30 Gwen Velásquez MD Aug 21, 2019 18:49
--- NOTE | 2019-08-21 19:30 | NUR ---
HAND-OFF: Report given to LORENE Byers.
--- NOTE | 2019-08-21 20:00 | NUR ---
NURSE NOTES: Received pt in no acute distress, asleep but arousable and grimaces to pain. Orally intubated with #7.5 ETT placed over ight lip at 21 cm and appears to be tolerating current vent settings of AC 18 TV 400 fiO2. 40 peep 8. Secretions minimal, thick white; chest sounds with scattered rhonchi. Afebrile, HR 80 on atrial fibrillation; BP stable. Pt has a right IJ TLC, dressing dry and intact; Profopol gtt infuses at 5mcg/kg/min, pt adequately sedated to RASS-2. GT patent but clamped, pt still NPO. FC patent, wound dressings dry and intact. Seizure and fall precautions observed. Pt on Airborne, droplet and contact precaution for +COVID-19.
[2019-08-21] MEDS: Dyna-Hex 2% Top Sol 2oz TOPIC SCH (21:06)
[2019-08-21] MEDS: Tamsulosin 0.4mg cap ORAL SCH (21:07)
--- NOTE | 2019-08-21 22:00 | NUR ---
NURSE NOTES: Lightly sedated with Profopol at 5mcg/kg/min. Grimacing to painful stimuli. VSS No distress
[2019-08-22] VITALS (47 sets, daily range): BP systolic 94–147; BP diastolic 44–96
--- NOTE | 2019-08-22 | NUR ---
NURSE NOTES: Asleep, VSS. RIJ TLC patent. Remains NPO. Afebrile.
--- NOTE | 2019-08-22 02:00 | NUR ---
NURSE NOTES: VSS, No distress, Bilat soft wrist restraints maintained
--- NOTE | 2019-08-22 04:44 | Consultation ---
DATE OF CONSULTATION: 08/21/2019 INFECTIOUS DISEASE CONSULTATION CONSULTING PHYSICIAN: Gwen Velásquez MD. ATTENDING PHYSICIAN: Helen Walker MD. REFERRING PHYSICIAN: Sergo Hughes MD. REASON FOR CONSULTATION: Sepsis, fevers, COVID-19 virus infection, pneumonia. CHIEF COMPLAINT: The patient's chief complaint coming into the hospital is respiratory infection, rule out COVID-19 virus infection. HISTORY OF PRESENT ILLNESS: This is an 83-year-old male who presents to the hospital with respiratory failure. The patient was seen in the emergency room and also in the ICU and is on a vent. He is sedated. The patient presented to [facility] with shortness of breath requiring intubation. He had fevers also and likely septic. He also has pneumonia on chest x-ray. COVID-19 virus testing was positive by PCR. Infectious Disease consultation is requested for antibiotic management. When I saw the patient, I put him on vancomycin and Zosyn. He is also on hydroxychloroquine and azithromycin day #3. Case discussed with Dr. Hughes and also with Dr. Nash from Pulmonary Medicine. MAR was noted. Orders were noted. Notes were reviewed. The patient cannot answer questions. REVIEW OF SYSTEMS: CONSTITUTIONAL: He is sedated. Generalized weakness. Poorly responsive. HEAD AND NECK: Orally intubated. CARDIAC: He is not on pressors. GASTROINTESTINAL: No nausea or diarrhea. GENITOURINARY: He has a Swartz. PULMONARY: He is on a vent. SKIN: No rash. NEUROLOGIC: No seizures. Otherwise, review of systems is limited. He did have fevers coming in. No rash or seizure activity noted. PAST MEDICAL HISTORY: The patient has a past medical history of hyperlipidemia or dyslipidemia, hypertension, atherosclerotic heart disease, CAD, COPD, dementia, nonverbal at baseline, and seizures. ALLERGIES: No known drug allergies. No antibiotic allergies. SOCIAL HISTORY: Negative for smoking, alcohol, or drug abuse. FAMILY HISTORY: Noncontributory. Negative for tuberculosis or cancer. MEDICATIONS: Upon reviewing the MAR, he is on following medications. He is on vancomycin, Zosyn, hydroxychloroquine, azithromycin, tamsulosin, Keppra, abx, apixaban, albuterol. Outside medications noted and reconciliated. PHYSICAL EXAMINATION: VITAL SIGNS: Currently, temperature 100.7, pulse rate 95, respiratory rate 18. On FiO2 of 40%, saturation 100%. Blood pressure 147/78. T-max on admission was 101.5. Pulse rate on admission was as high as 143. GENERAL: He is on a vent, poorly responsive, sedated. HEAD AND NECK: Orally intubated. Normocephalic. No icterus. No JVD. HEART: Regular. No gallop or murmur. ABDOMEN: Soft. Positive bowel sounds. LUNGS: Bilateral rhonchi and rales. SKIN: No rash. MUSCULOSKELETAL: No effusion. Legs without cellulitis. PERIPHERAL VASCULAR: No cyanosis or gangrene. GENITOURINARY: He has Swartz. LINE SITES: Without phlebitis. NEUROLOGIC: Generalized weakness. Poorly responsive LABORATORY DATA: HIV test is negative. White count 5.7, hemoglobin 14.6, platelet count 115,000. Creatinine 0.9. Ferritin 420. C-reactive protein 15.5. UA had zero white cells. Cultures, blood cultures are negative to date. Influenza screen is negative. COVID-19 virus testing is positive. IMAGING STUDIES: Initial chest x-ray showed left basilar opacification; diffuse left lung opacity, edema, infiltrate; also infiltrate in the right upper lobe is noted and reviewed. ASSESSMENT AND PLAN: 1. The patient is COVID-19 virus positive with pneumonia. Rule out aspiration, healthcare-acquired pneumonia versus community-acquired pneumonia also versus COVID-19 virus infection with pneumonia. The patient is septic with fevers and respiratory failure, on vent. The patient is on Zosyn, vancomycin, and day #3 of hydroxychloroquine plus azithromycin. Continue aggressive supportive measures. Continue antibiotics. Check followup labs and chest x-ray. Prognosis is quite guarded. Case discussed with Dr. Hughes and Dr. Nash from Pulmonary Medicine. Continue ICU and supportive care for now. 2. Respiratory failure, on vent. 3. History of hyperlipidemia. 4. History of hypertension. 5. Atherosclerotic heart disease. 6. CAD. 7. COPD. 8. Dementia. 9. Nonverbal at baseline. 10. History of seizures. 11. No known drug allergies. 12. Social history negative. 13. Family history noncontributory. 14. MAR was noted. 15. Case discussed with RN. 16. Continue treatment per primary consultants. Gwen Velásquez M.D. DR: MARIO JOB#: [id number] CC: SUSHANT
--- NOTE | 2019-08-22 05:00 | NUR ---
NURSE NOTES: AM care done. Oral care rendered. Oral secretions frothy. Had 1 mod amt of formed BM. Redressed wound on sacral area. Skin hot to touch, temp 99.7 Tolerating curent vent parameters. Kept lightly sedated with Profopol at 5mcg/kg/min to keep RASS-2. Soft wrist restraints maintained as well. Strict isolation for airborne, droplet and contact precautions observed. No distress otherwise
[2019-08-22 06:54] LABS: BASOPHILS % (AUTO) 0.6 % (0.0-2.0); EOSINOPHILS % (AUTO) 0.3 % (0.0-3.0); HEMOGLOBIN 14.4 G/DL (14.2-18.0); LYMPHOCYTES % (AUTO) 26.8 % (20.0-45.0); MEAN CORPUSCULAR VOLUME 90 FL (80-99); MONOCYTES % (AUTO) 9.6 % (1.0-10.0); NEUTROPHILS % (AUTO) 62.8 % (45.0-75.0); PLATELET COUNT 149 K/UL (150-450); RED BLOOD COUNT 4.65 M/UL (4.70-6.10); RED CELL DISTRIBUTION WIDTH 12.6 % (11.6-14.8); WHITE BLOOD COUNT 6.5 K/UL (4.8-10.8)
--- NOTE | 2019-08-22 07:09 | NUR ---
HAND-OFF: Report given to Ladarius Iyer RN.
[2019-08-22] MEDS: Albuterol/Ipratropium 3ml neb IN-LINE SCH (07:18)
[2019-08-22 07:52] LABS: ALANINE AMINOTRANSFERASE 124 U/L (12-78); ALBUMIN 2.1 G/DL (3.4-5.0); ALBUMIN/GLOBULIN RATIO 0.4 (1.0-2.7); ALKALINE PHOSPHATASE 254 U/L (46-116); ANION GAP 14 mmol/L (5-15); ASPARTATE AMINO TRANSFERASE 252 U/L (15-37); BILIRUBIN,TOTAL 0.7 MG/DL (0.2-1.0); BLOOD UREA NITROGEN 28 mg/dL (7-18); CALCIUM 8.2 MG/DL (8.5-10.1); CARBON DIOXIDE 24 MMOL/L (21-32); CHLORIDE 102 MMOL/L (98-107); CREATININE 1.1 MG/DL (0.55-1.30); FERRITIN 823 NG/ML (8-388); POTASSIUM 3.6 MMOL/L (3.5-5.1); SODIUM 140 MMOL/L (136-145)
--- NOTE | 2019-08-22 08:45 | NUR ---
NURSE NOTES: Dr. cary rounded on patient this morning and updated on condition. also made aware [facility] sent report for covid swabs resulted positive and Dr. Watts made aware. no further orders given at this time.
[2019-08-22] MEDS: Azithromycin 250mg tab ORAL SCH (09:43)
[2019-08-22] MEDS: levETIRAcetam 500mg/5ml Liquid GT SCH ×2 (09:43→20:46)
[2019-08-22] MEDS: Eliquis 2.5mg tablet ORAL SCH ×2 (09:43→17:27)
--- NOTE | 2019-08-22 10:35 | NUR ---
NURSE NOTES: Dr. Nash round on patient and updated on status. ordered to have a triglycerides and phenytoin level to be drawn on 08/23/19 on am. also ordered to start patient on MDI albuterol and Atrovent Q6hrs through the ventilator.
[2019-08-22] MEDS ORDERED: Albuterol 90mcg Inhaler 8gm INH PRN (10:51)
--- NOTE | 2019-08-22 11:15 | NUR ---
NURSE NOTES: Dr. Saad navarro verbal order to start patient on weaning and titrate the peep to 5 and maintain saturations above 92%. Rt made aware of weaning trial and to have an ABG done one hour after setting changed, no further order given.
--- NOTE | 2019-08-22 12:17 | General Progress Note ---
Assessment/Plan Assessment/Plan: 83YO M with HTN, HLD, COPD, CAD, Seizure disorder presenting with cough and shortness of breath. In the ED, patient was found to be tachycardic (130's) and tachypnic (33) and febrile at 101.2. 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 -Continue vent management per the ICU team. -Daily labs. -Contact plus isolation. -ID and Pulm following #History of Seizure disorder: -cont Dilantin and Keppra -Neurology following #HTN #HLD #CAD #Eliquis use I spent 75 minutes on this patient's case, and 36 mins was dedicated to critical care Critical Care Services performed include: Telemetry Review Hemodynamic measurement interpretation Laboratory data review and interpretation Radiology image review and interpretation Ventilator setting review, management, and adjustment Interpretation of ABG's Discussion of patient's care with ICU team, ICU Nursing staff and/or consulting services Subjective Date patient seen: Aug 22, 2019 Time patient seen: 09:43 ROS Limited/Unobtainable: Yes Allergies: Coded Allergies: No Known Allergies (Unverified , 02/29/16) Subjective Follow up for acute hypoxic resp failure, septic shock, COVID-19 positive Remains intubated. Objective Last 24 Hour Vital Signs Date Time Temp Pulse Resp B/P (MAP) Pulse Ox O2 Delivery O2 Flow Rate FiO2 08/22/19 11:30 84 18 132/68 (89) 98 08/22/19 11:12 87 08/22/19 11:00 84 18 127/74 (91) 98 08/22/19 10:56 83 18 40 08/22/19 10:30 84 18 128/73 (91) 98 08/22/19 10:00 86 18 133/82 (99) 98 08/22/19 09:30 86 19 136/74 (94) 97 08/22/19 09:19 87 19 40 08/22/19 09:00 87 19 127/71 (89) 98 08/22/19 08:30 86 19 136/72 (93) 98 08/22/19 08:00 99.8 87 24 128/82 (97) 97 08/22/19 08:00 40 08/22/19 08:00 Mechanical Ventilator 08/22/19 07:30 87 19 135/72 (93) 98 08/22/19 07:18 86 19 40 08/22/19 06:46 89 19 08/22/19 06:30 90 20 126/69 (88) 97 08/22/19 06:00 92 28 144/76 (98) 96 08/22/19 06:00 20 126/69 Mechanical Ventilator 40 08/22/19 05:32 19 121/76 Mechanical Ventilator 40 08/22/19 05:30 88 21 128/72 (90) 95 08/22/19 05:30 89 21 40 08/22/19 05:00 22 128/72 Mechanical Ventilator 40 08/22/19 05:00 86 19 121/76 (91) 96 08/22/19 04:30 99.7 86 20 132/80 (97) 96 08/22/19 04:00 87 08/22/19 04:00 86 19 123/74 (90) 96 08/22/19 04:00 18 123/74 Mechanical Ventilator 40 08/22/19 04:00 40 08/22/19 04:00 Mechanical Ventilator 08/22/19 03:30 91 39 147/96 (113) 96 08/22/19 03:16 84 18 40 08/22/19 03:00 84 18 129/72 (91) 96 08/22/19 03:00 18 129/72 Mechanical Ventilator 40 08/22/19 02:30 83 18 122/70 (87) 97 08/22/19 02:00 18 128/71 Mechanical Ventilator 40 08/22/19 02:00 84 19 128/71 (90) 97 08/22/19 01:30 84 19 129/73 (91) 96 08/22/19 01:26 83 18 40 08/22/19 01:00 19 129/73 Mechanical Ventilator 40 08/22/19 01:00 83 19 130/73 (92) 97 08/22/19 00:30 82 18 124/70 (88) 97 08/22/19 00:00 Mechanical Ventilator 08/22/19 00:00 98.8 82 18 128/68 (88) 97 08/22/19 00:00 40 08/22/19 00:00 18 125/70 Mechanical Ventilator 40 4/9/20 00:00 84 08/21/19 23:32 83 18 40 08/21/19 23:00 18 125/69 Mechanical Ventilator 40 08/21/19 23:00 82 19 125/69 (87) 97 08/21/19 22:30 81 20 140/72 (94) 97 08/21/19 22:00 79 19 133/75 (94) 97 08/21/19 22:00 18 133/75 Mechanical Ventilator 40 08/21/19 21:30 78 19 138/64 (88) 99 08/21/19 21:06 86 16 40 08/21/19 21:00 19 159/71 Mechanical Ventilator 40 08/21/19 21:00 78 18 136/74 (94) 98 08/21/19 20:30 79 18 143/75 (97) 99 08/21/19 20:00 98.7 80 20 153/82 (105) 99 08/21/19 20:00 Mechanical Ventilator 08/21/19 20:00 18 143/76 Mechanical Ventilator 40 08/21/19 20:00 80 08/21/19 20:00 40 08/21/19 19:39 80 18 40 08/21/19 19:30 81 19 152/81 (104) 99 08/21/19 19:00 81 18 150/79 (102) 99 08/21/19 18:30 83 18 141/85 (103) 98 08/21/19 18:00 84 19 150/82 (104) 98 08/21/19 17:30 88 27 163/82 (109) 97 08/21/19 17:25 95 18 40 08/21/19 17:00 80 20 147/78 (101) 100 08/21/19 16:30 98.3 82 20 152/76 (101) 99 08/21/19 16:00 Mechanical Ventilator 08/21/19 16:00 81 18 152/48 (82) 100 08/21/19 16:00 40 08/21/19 15:30 81 18 153/80 (104) 100 08/21/19 15:05 81 18 40 08/21/19 15:00 83 18 151/81 (104) 100 08/21/19 14:30 81 18 160/116 (131) 100 08/21/19 14:08 18 166/69 Mechanical Ventilator 40 08/21/19 14:00 78 18 166/69 (101) 100 08/21/19 13:30 78 18 144/89 (107) 99 08/21/19 13:05 81 18 40 08/21/19 13:00 66 18 134/74 (94) 96 08/21/19 12:30 79 18 138/75 (96) 100 Intake and Output 08/21/19 08/22/19 19:00 07:00 Intake Total 317.632 ml 379.076 ml Output Total 546 ml 525 ml Balance -228.368 ml -145.924 ml Free Water 100 ml IV Total 217.632 ml 319.076 ml Other 60 ml Output Urine Total 545 ml 525 ml Stool Total 1 ml # Bowel Movements 1 Laboratory Tests 08/21/19 13:48: Arterial Blood pH 7.502H, Arterial Blood Partial Pressure CO2 31.3L, Arterial Blood Partial Pressure O2 100.7H, Arterial Blood HCO3 24.0, Arterial Blood Oxygen Saturation 97.7, Arterial Blood Base Excess 1.6, Jag Test Positive 08/22/19 06:00: White Blood Count 6.5, Red Blood Count 4.65L, Hemoglobin 14.4, Hematocrit 42.0, Mean Corpuscular Volume 90, Mean Corpuscular Hemoglobin 31.0, Mean Corpuscular Hemoglobin Concent 34.3, Red Cell Distribution Width 12.6, Platelet Count 149L, Mean Platelet Volume 7.3, Neutrophils (%) (Auto) 62.8, Lymphocytes (%) (Auto) 26.8, Monocytes (%) (Auto) 9.6, Eosinophils (%) (Auto) 0.3, Basophils (%) (Auto ) 0.6, Sodium Level 140, Potassium Level 3.6, Chloride Level 102, Carbon Dioxide Level 24, Anion Gap 14, Blood Urea Nitrogen 28H, Creatinine 1.1, Estimat Glomerular Filtration Rate > 60, Glucose Level 159H, Calcium Level 8.2L , Ferritin 823H, Total Bilirubin 0.7, Aspartate Amino Transf (AST/SGOT) 252H, Alanine Aminotransferase (ALT/SGPT) 124H, Alkaline Phosphatase 254H, C-Reactive Protein, Quantitative 44.9H, Total Protein 6.9, Albumin 2.1L, Globulin 4.8, Albumin/Globulin Ratio 0.4L Height (Feet): 5 Height (Inches): 8.00 Weight (Pounds): 163 General Appearance: other - Intubated Neck: normal alignment Cardiovascular: normal rate, regular rhythm Respiratory/Chest: lungs clear, normal breath sounds, no respiratory distress Sergo Demarco MD Aug 22, 2019 12:17
[2019-08-22] MEDS: Ipratropium Bromide Inhaler INH SCH ×2 (13:01→19:27)
[2019-08-22] MEDS: Albuterol 90mcg Inhaler 8gm INH SCH ×2 (13:01→19:27)
--- NOTE | 2019-08-22 13:25 | NUR ---
RESPIRATORY NOTE: attempted to wean pt at 1305 with CPAP PS10 fio2 40%. slight distress noted when weaning. per weaning protocol pt was unsuccessful and placed back on AC. RN notified
--- NOTE | 2019-08-22 14:20 | NUR ---
NURSE NOTES: Dr. Nash made aware of patient failed weaning trial this afternoon. Patient was unable to tolerate CPAP with PS of 10, FIO2 40% with peep of 5, patient returned to previous setting of AC 18, TV: 400, FIO2 40% with peep of 5
--- NOTE | 2019-08-22 16:23 | NUR ---
CASE MANAGEMENT: INITIAL REVIEW 83YR OLD MALE BIBA FROM [facility] CC:FEVER; SOB SI: RESPIRATORY INFECTION . COVID-19 R/O 101.4 132 32 112/78 94% ON RA TROP 0.205 BNP 2911 C-REC PROTEIN 18.3 WBC 4.7 NA+ 130 CL-94 BG 281 AST 72 ALKP 203 TCK 835 LACTIC ACID 2.10 INTERLEUKIN 62.0 ABG: pO2 246.2 D-DIMER 16.53 IS: IV NS BOLUS X2 IV ROCEPHIN X1 IV ZITHROMAX X1 TYLENOL AZ X1 IV ROCURONIUM BROMIDE X1 IV AMIDATE X1 IV PROPOFOL Q24HR PLAQUENIL PO BID X2 DOSES IV LABETALOL X1 CHEST X-RAY-may represent infiltrate, edema, pleural effusion, or combination of such CHEST U-OZL-Ulgieyttvinj intubation \: INTENSIVE CARE UNIT DCP: [facility] WHEN STABLE PLAN: CASE MANAGEMENT: REVIEW 07/21/19 SI: COVID-19 R/O . RESPIRATORY INFECTION 99.1 79 18 124/68 99% ON MECHANICAL VENTILATOR PHENYTOIN 35.3 K+ 3.4 BUN 28 BG 160 CA+ 7.9 ABG: pH 7.502 pCO2 31.3 pO2 100.7 IS: IV ZOSYN Q8HR PO ZITHROMAX QS X4 DOSES IV VANCOMYCIN Q24HR PROVENTIL INH Q6HR ATROVENT INH Q6HR PLAQUENIL PO BID X8 DOSES ELIQUIS PO BID KEPPRA GT BID IV PROPOFOL Q24HR FLOMAX PO QHS TYLENOL GT Q6HR SVETLANA-HEX 2% TP DQ \: INTENSIVE CARE UNIT DCP: [facility] WHEN STABLE PLAN: COVID-19- POSITIVE FROM FACILITY
--- NOTE | 2019-08-22 16:38 | Pulmonolgy Critical Care Note ---
Critical Care - Asmt/Plan Problems: (1) Respiratory failure (2) Suspected 2019 novel coronavirus infection (3) History of CVA (cerebrovascular accident) (4) Acute encephalopathy (5) Multi-infarct dementia (6) Uncontrolled seizures Assessment/Plan: Continue ventilatory support, settings reviewed: TV 400 AC 14 PEEP 5 FiO2 40 LPV Daily SBT Monitor gas exchange STRONGLY CONSIDER HHN's in line with Vent May consider GC's based on trajectory Plaquenil (D3) Vanco/Zosyn/Azithro per ID COVID labs sent, F/U IL6 (pending), HIV negative, daily CRP and ferritin D/W pharmacy RE: Tociluzumab - per pharmacist on national shortage and cannot get, will continue to follow up Remdesivir limited to trial, cannot get under compassionate care Monitor volumes and renal function Propfol gtt, monitor TG's F/U neuro recs, continue AED's Monitor LFT's TF's DVT Px: Eliquis FC, continue to discuss GOC Disposition: keep in ICU Time Spent (Minutes): 40 Notes Reviewed: retail account manager, ID Discussed with: nurses, consultants Critical Care - Objective Last 24 Hour Vital Signs Date Time Temp Pulse Resp B/P (MAP) Pulse Ox O2 Delivery O2 Flow Rate FiO2 08/22/19 16:00 40 08/22/19 16:00 Mechanical Ventilator 08/22/19 15:04 84 19 40 08/22/19 13:30 85 21 137/70 (92) 96 08/22/19 13:00 84 26 98 Mechanical Ventilator 40 86 25 40 40 08/22/19 13:00 86 27 136/74 (94) 96 08/22/19 12:30 83 18 129/72 (91) 98 08/22/19 12:00 88 08/22/19 12:00 Mechanical Ventilator 08/22/19 12:00 99.7 83 19 137/72 (93) 98 08/22/19 12:00 40 08/22/19 11:30 84 18 132/68 (89) 98 08/22/19 11:12 87 08/22/19 11:00 84 18 127/74 (91) 98 08/22/19 10:56 83 18 40 08/22/19 10:30 84 18 128/73 (91) 98 08/22/19 10:00 86 18 133/82 (99) 98 08/22/19 09:30 86 19 136/74 (94) 97 08/22/19 09:19 87 19 40 08/22/19 09:00 87 19 127/71 (89) 98 08/22/19 08:30 86 19 136/72 (93) 98 08/22/19 08:00 99.8 87 24 128/82 (97) 97 08/22/19 08:00 40 08/22/19 08:00 Mechanical Ventilator 08/22/19 07:30 87 19 135/72 (93) 98 08/22/19 07:18 86 19 40 08/22/19 06:46 89 19 08/22/19 06:30 90 20 126/69 (88) 97 08/22/19 06:00 92 28 144/76 (98) 96 08/22/19 06:00 20 126/69 Mechanical Ventilator 40 08/22/19 05:32 19 121/76 Mechanical Ventilator 40 08/22/19 05:30 88 21 128/72 (90) 95 08/22/19 05:30 89 21 40 08/22/19 05:00 22 128/72 Mechanical Ventilator 40 08/22/19 05:00 86 19 121/76 (91) 96 08/22/19 04:30 99.7 86 20 132/80 (97) 96 08/22/19 04:00 87 08/22/19 04:00 86 19 123/74 (90) 96 08/22/19 04:00 18 123/74 Mechanical Ventilator 40 08/22/19 04:00 40 08/22/19 04:00 Mechanical Ventilator 08/22/19 03:30 91 39 147/96 (113) 96 08/22/19 03:16 84 18 40 08/22/19 03:00 84 18 129/72 (91) 96 08/22/19 03:00 18 129/72 Mechanical Ventilator 40 08/22/19 02:30 83 18 122/70 (87) 97 08/22/19 02:00 18 128/71 Mechanical Ventilator 40 08/22/19 02:00 84 19 128/71 (90) 97 08/22/19 01:30 84 19 129/73 (91) 96 08/22/19 01:26 83 18 40 08/22/19 01:00 19 129/73 Mechanical Ventilator 40 08/22/19 01:00 83 19 130/73 (92) 97 08/22/19 00:30 82 18 124/70 (88) 97 08/22/19 00:00 Mechanical Ventilator 08/22/19 00:00 98.8 82 18 128/68 (88) 97 08/22/19 00:00 40 08/22/19 00:00 18 125/70 Mechanical Ventilator 40 08/22/19 00:00 84 08/21/19 23:32 83 18 40 08/21/19 23:00 18 125/69 Mechanical Ventilator 40 08/21/19 23:00 82 19 125/69 (87) 97 08/21/19 22:30 81 20 140/72 (94) 97 08/21/19 22:00 79 19 133/75 (94) 97 08/21/19 22:00 18 133/75 Mechanical Ventilator 40 08/21/19 21:30 78 19 138/64 (88) 99 08/21/19 21:06 86 16 40 08/21/19 21:00 19 159/71 Mechanical Ventilator 40 08/21/19 21:00 78 18 136/74 (94) 98 08/21/19 20:30 79 18 143/75 (97) 99 08/21/19 20:00 98.7 80 20 153/82 (105) 99 08/21/19 20:00 Mechanical Ventilator 08/21/19 20:00 18 143/76 Mechanical Ventilator 40 08/21/19 20:00 80 08/21/19 20:00 40 08/21/19 19:39 80 18 40 08/21/19 19:30 81 19 152/81 (104) 99 08/21/19 19:00 81 18 150/79 (102) 99 08/21/19 18:30 83 18 141/85 (103) 98 08/21/19 18:00 84 19 150/82 (104) 98 08/21/19 17:30 88 27 163/82 (109) 97 08/21/19 17:25 95 18 40 08/21/19 17:00 80 20 147/78 (101) 100 Status: other - intubated, sedated Condition: critical Heart: HR/BP stable Micro: Microbiology Date/Time Source Procedure Growth Status 08/19/19 17:30 Blood Blood Culture - Preliminary NO GROWTH AFTER 48 HOURS Resulted 08/19/19 17:15 Blood Blood Culture - Preliminary NO GROWTH AFTER 48 HOURS Resulted 08/19/19 18:30 Nasal Nares Right MRSA Culture - Final NO METHICILLIN RESISTANT STAPH AUREUS... Complete 08/19/19 18:30 Nasal Nares - Final Complete 08/19/19 18:30 Nasal Nares - Final Complete 08/19/19 18:30 Rectum - Final NO CARBAPENEM-RESISTANT ENTEROBACTERI... Complete 08/19/19 18:30 Rectum VRE Culture - Final NO VANCOMYCIN RESISTANT ENTEROCOCCUS ... Complete Blood Sugars: BS controlled Critical Care - Subjective ROS Limited/Unobtainable: Yes ICU Day: 3 Intubation Day: 4 Interval Events: FiO2 40, PEEP weaned to 5, no sig secretions ,gas exchange improved, failed SBT Condition: critical IV Access: central - R IJ CVC FI02: 40 Vent Support Breath Rate: 18 Vent Support Mode: AC Vent Tidal Volume: 400 Sputum Amount: Small PEEP: 5.0 PIP: 33 Secretions: small clear Fluids: SLIV Drips: Propofol I&O: Intake and Output 08/21/19 08/22/19 19:00 07:00 Intake Total 317.632 ml 379.076 ml Output Total 546 ml 525 ml Balance -228.368 ml -145.924 ml Free Water 100 ml IV Total 217.632 ml 319.076 ml Other 60 ml Output Urine Total 545 ml 525 ml Stool Total 1 ml # Bowel Movements 1 Subjective: REYMUNDO ET-Tube: 7.5 ET Position: 21 Labs: Laboratory Tests Test 08/22/19 06:00 08/22/19 12:40 White Blood Count 6.5 K/UL (4.8-10.8) Red Blood Count 4.65 M/UL (4.70-6.10) L Hemoglobin 14.4 G/DL (14.2-18.0) Hematocrit 42.0 % (42.0-52.0) Mean Corpuscular Volume 90 FL (80-99) Mean Corpuscular Hemoglobin 31.0 PG (27.0-31.0) Mean Corpuscular Hemoglobin Concent 34.3 G/DL (32.0-36.0) Red Cell Distribution Width 12.6 % (11.6-14.8) Platelet Count 149 K/UL (150-450) L Mean Platelet Volume 7.3 FL (6.5-10.1) Neutrophils (%) (Auto) 62.8 % (45.0-75.0) Lymphocytes (%) (Auto) 26.8 % (20.0-45.0) Monocytes (%) (Auto) 9.6 % (1.0-10.0) Eosinophils (%) (Auto) 0.3 % (0.0-3.0) Basophils (%) (Auto) 0.6 % (0.0-2.0) Sodium Level 140 MMOL/L (136-145) Potassium Level 3.6 MMOL/L (3.5-5.1) Chloride Level 102 MMOL/L (98-107) Carbon Dioxide Level 24 MMOL/L (21-32) Anion Gap 14 mmol/L (5-15) Blood Urea Nitrogen 28 mg/dL (7-18) H Creatinine 1.1 MG/DL (0.55-1.30) Estimat Glomerular Filtration Rate > 60 mL/min (>60) Glucose Level 159 MG/DL (74-106) H Calcium Level 8.2 MG/DL (8.5-10.1) L Ferritin 823 NG/ML (8-388) H Total Bilirubin 0.7 MG/DL (0.2-1.0) Aspartate Amino Transf (AST/SGOT) 252 U/L (15-37) H Alanine Aminotransferase (ALT/SGPT) 124 U/L (12-78) H Alkaline Phosphatase 254 U/L (46-116) H C-Reactive Protein, Quantitative 44.9 mg/dL (0.00-0.90) H Total Protein 6.9 G/DL (6.4-8.2) Albumin 2.1 G/DL (3.4-5.0) L Globulin 4.8 g/dL Albumin/Globulin Ratio 0.4 (1.0-2.7) L Arterial Blood pH 7.424 (7.350-7.450) Arterial Blood Partial Pressure CO2 40.7 mmHg (35.0-45.0) Arterial Blood Partial Pressure O2 94.1 mmHg (75.0-100.0) Arterial Blood HCO3 26.0 mmol/L (22.0-26.0) Arterial Blood Oxygen Saturation 96.9 % (95-100) Arterial Blood Base Excess 1.5 (-2-2) Jag Test Positive David Nash MD Aug 22, 2019 16:38
--- NOTE | 2019-08-22 17:05 | NUR ---
NURSE NOTES: Patient oral care provided and cleaned bowel movement, color was brown with consistency soft. patient wound assessed and replaced. sacral Optifoam changed and applied with triad cream. left heel wound treated with Betadine and covered with Optifoam and elevated heels.
[2019-08-22] MEDS: Vancomycin 1gm/D5W 275ml IVPB SCH ×2 (17:27)
--- NOTE | 2019-08-22 18:50 | NUR ---
NURSE NOTES: Dr. Nash called to place and order to renew propofol drip. patient remains on propofol drip at 5mcg/min at rate of 2.136ml/hr. remains sedated at -2 rass.
--- NOTE | 2019-08-22 19:30 | NUR ---
NURSE NOTES: Received pt COVID +, orally intubatedf on ac mode,pt on Diprivan drip at 5mcg/kg/min, infusing to RT IJ central line. Site with drsg dry and intact. Pt on SR with 1st degree AVB BP stable. afebrile. Pt has DTI sacral area and left heel unstageable, covered with optifoam, dry and intact. GT clamped NPO at this time. Oral care done. Swartz to gravity with jaclyn yellow urine, moderate in amt. Monitor I and O.,monitor lytes. Will contnue to monitor.
--- NOTE | 2019-08-22 19:32 | NUR ---
RESPIRATORY NOTE: Received Pt on AC 18, 400VT, 40%, PEEP +5. Pt intubated w/ ETT 7.5 @ 21cm lipline, secured by anchorfast. Pt sedated. B/S nasir. rhonchi, sxn small amounts of thick, madsen-brown secretions w/ red specks. Vent plugged into red outlet, ambubag at bedside. Pt in no apparent distress at this time. Will continue to monitor pt.
[2019-08-22] MEDS: Dyna-Hex 2% Top Sol 2oz TOPIC SCH (20:15)
[2019-08-22] MEDS: Tamsulosin 0.4mg cap ORAL SCH (20:46)
--- NOTE | 2019-08-22 21:00 | NUR ---
NURSE NOTES: Had x1 formed stool. Cleaned up pt.
--- NOTE | 2019-08-22 22:20 | Neurology Progress Note ---
Interim History Interim History ROS Limited/Unobtainable: Yes Interim History remains intubated, no seizures Objective Physical Exam Last Vital Signs Date Time Temp Pulse Resp B/P (MAP) Pulse Ox O2 Delivery O2 Flow Rate FiO2 08/22/19 21:09 92 21 40 08/22/19 20:15 118/78 08/22/19 19:27 99 Mechanical Ventilator 08/22/19 16:00 99.2 08/20/19 20:16 2.0 Laboratory Tests Test 08/22/19 06:00 08/22/19 12:40 White Blood Count 6.5 K/UL (4.8-10.8) Red Blood Count 4.65 M/UL (4.70-6.10) L Hemoglobin 14.4 G/DL (14.2-18.0) Hematocrit 42.0 % (42.0-52.0) Mean Corpuscular Volume 90 FL (80-99) Mean Corpuscular Hemoglobin 31.0 PG (27.0-31.0) Mean Corpuscular Hemoglobin Concent 34.3 G/DL (32.0-36.0) Red Cell Distribution Width 12.6 % (11.6-14.8) Platelet Count 149 K/UL (150-450) L Mean Platelet Volume 7.3 FL (6.5-10.1) Neutrophils (%) (Auto) 62.8 % (45.0-75.0) Lymphocytes (%) (Auto) 26.8 % (20.0-45.0) Monocytes (%) (Auto) 9.6 % (1.0-10.0) Eosinophils (%) (Auto) 0.3 % (0.0-3.0) Basophils (%) (Auto) 0.6 % (0.0-2.0) Sodium Level 140 MMOL/L (136-145) Potassium Level 3.6 MMOL/L (3.5-5.1) Chloride Level 102 MMOL/L (98-107) Carbon Dioxide Level 24 MMOL/L (21-32) Anion Gap 14 mmol/L (5-15) Blood Urea Nitrogen 28 mg/dL (7-18) H Creatinine 1.1 MG/DL (0.55-1.30) Estimat Glomerular Filtration Rate > 60 mL/min (>60) Glucose Level 159 MG/DL (74-106) H Calcium Level 8.2 MG/DL (8.5-10.1) L Ferritin 823 NG/ML (8-388) H Total Bilirubin 0.7 MG/DL (0.2-1.0) Aspartate Amino Transf (AST/SGOT) 252 U/L (15-37) H Alanine Aminotransferase (ALT/SGPT) 124 U/L (12-78) H Alkaline Phosphatase 254 U/L (46-116) H C-Reactive Protein, Quantitative 44.9 mg/dL (0.00-0.90) H Total Protein 6.9 G/DL (6.4-8.2) Albumin 2.1 G/DL (3.4-5.0) L Globulin 4.8 g/dL Albumin/Globulin Ratio 0.4 (1.0-2.7) L Arterial Blood pH 7.424 (7.350-7.450) Arterial Blood Partial Pressure CO2 40.7 mmHg (35.0-45.0) Arterial Blood Partial Pressure O2 94.1 mmHg (75.0-100.0) Arterial Blood HCO3 26.0 mmol/L (22.0-26.0) Arterial Blood Oxygen Saturation 96.9 % (95-100) Arterial Blood Base Excess 1.5 (-2-2) Jag Test Positive Neurologic Exam Objective intubated, sedated, minimal withdraw cc 35 min Impression/Recommendations Problems: (1) Suspected 2019 novel coronavirus infection (2) Multi-infarct dementia (3) Uncontrolled seizures (4) History of CVA (cerebrovascular accident) (5) Acute encephalopathy (6) Aspiration pneumonia (7) Respiratory failure Diagnostic Impression icu level of care cont tre and dilmolly Monitor for seizures covid ro started atb wean off sedation when able Ivan Rose MD Aug 22, 2019 22:20
--- NOTE | 2019-08-22 23:00 | NUR ---
NURSE NOTES: Suctioned tk beige secretions lg in amt. 02 sat 100%. HOB kept elevated. Watch for any resp. distress.
[2019-08-23] VITALS (34 sets, daily range): BP systolic 113–135; BP diastolic 49–85
[2019-08-23] MEDS: Albuterol 90mcg Inhaler 8gm INH SCH ×4 (00:56→19:00)
[2019-08-23] MEDS: Ipratropium Bromide Inhaler INH SCH ×4 (00:56→19:00)
--- NOTE | 2019-08-23 01:00 | NUR ---
NURSE NOTES: Remained sedated with DIPRIVAn drip at mcg/kg/min. no resp. distress noted.
--- NOTE | 2019-08-23 03:00 | NUR ---
NURSE NOTES: AM labs drawn via central line.
--- NOTE | 2019-08-23 05:00 | NUR ---
NURSE NOTES: Complete bath with bed changed was done.
--- NOTE | 2019-08-23 06:00 | NUR ---
NURSE NOTES: Remained sedated with Diprivan drip at 5mcg/kg/min. VSS. Afebrile.
--- NOTE | 2019-08-23 08:00 | NUR ---
HAND-OFF: Report given to Mery PAULSON..
--- NOTE | 2019-08-23 08:05 | NUR ---
NURSE NOTES: Report received from LORENE Seals. Pt is lying comfortably in semi fowlers with no signs of distress. Pt is non-verbal, obtunded, opens eyes to painful stimuli. Respirations even and unlabored on mechanical ventilator. ETT 7.5, 21 cm @ the lip line. O2 saturation of 99% with vent settings of AC 18, VT 400, FiO2 40% and p of 5. Pt SR with 1st degree AVB on the monitor @ 79 bpm. All other vitals stable as documented. Right IJ running propofol drip @ 5 mcg. Pt has sacral and left heel pressure injuries, both dressed in optifoam. Head of bed @ 30 degrees. G-tube in place with no feeding at this time. Swartz in place and patent, draining urine at foot of bed. Pt on P200 mattress. Bed at lowest position, brakes engaged, siderails x3, bed alarm on, and call light within reach. Pt in stable condition at this time; will continue to monitor.
[2019-08-23] MEDS: Azithromycin 250mg tab ORAL SCH (09:38)
[2019-08-23] MEDS: levETIRAcetam 500mg/5ml Liquid GT SCH ×2 (09:38→20:27)
[2019-08-23] MEDS: Eliquis 2.5mg tablet ORAL SCH ×2 (09:38→16:59)
--- NOTE | 2019-08-23 10:10 | NUR ---
NURSE NOTES: Pt in stable condition. Propofol drip unchanged. Pt repositioned in bed and oral care done.
--- NOTE | 2019-08-23 12:00 | NUR ---
NURSE NOTES: Pt turned and repositioned. Oral care done. O2 saturation of 100 % on vent. Respirations even and unlabored. Pt in stable condition, no acute distress noted.
--- NOTE | 2019-08-23 13:00 | NUR ---
CASE MANAGEMENT: REVIEW 07/21/19 SI: COVID-19 ISOLATE (+) . RESPIRATORY INFECTION . HX CVA 98.0 81 20 122/64 98% ON MECHANICAL VENTILATOR FiO2 40 AC 18 TV 400 PEEP 5 FERRITIN 717 C-REC PROTEIN 29.6 PHENYTOIN 29.8 IS: IV PROPOFOL Q24HR IV ZOSYN Q8HR PO ZITHROMAX QS X4 DOSES IV VANCOMYCIN Q24HR IV ZOSYN TID PLAQUENIL PO BID X8 DOSES PROVENTIL INH Q6HR ATROVENT INH Q6HR ELIQUIS PO BID KEPPRA GT BID FLOMAX PO QHS TYLENOL GT Q6HR SVETLANA-HEX 2% TP DQ \: INTENSIVE CARE UNIT DCP: [facility] WHEN STABLE PLAN: COVID-19- POSITIVE FROM FACILITY WEAN OFF VENT WHEN STABLE Addendum: 08/26/19 at 1720 by DERIAN PRESSLEY LVN DATE: 08/23/19
--- NOTE | 2019-08-23 13:02 | General Progress Note ---
Assessment/Plan Assessment/Plan: 83YO M with HTN, HLD, COPD, CAD, Seizure disorder presenting with cough and shortness of breath. In the ED, patient was found to be tachycardic (130's) and tachypnic (33) and febrile at 101.2. #Hypoxemic acute respiratory failure #Septic shock #Covid19 positive -Appreciate ICU care -Pulm/CCM eval appreciated -cont Plaquenil, Vanco and Zosyn -Continuous woodyard operator. -Continue vent management per the ICU team, daily SBT -Daily labs. -Contact plus isolation. -ID and Pulm following #History of Seizure disorder: -cont Dilantin and Keppra -Neurology following #HTN #HLD #CAD #Eliquis use I spent 75 minutes on this patient's case, and 36 mins was dedicated to critical care Critical Care Services performed include: Telemetry Review Hemodynamic measurement interpretation Laboratory data review and interpretation Radiology image review and interpretation Ventilator setting review, management, and adjustment Interpretation of ABG's Discussion of patient's care with ICU team, ICU Nursing staff and/or consulting services Subjective Date patient seen: Aug 23, 2019 Time patient seen: 13:01 ROS Limited/Unobtainable: Yes Allergies: Coded Allergies: No Known Allergies (Unverified , 02/29/16) Subjective Follow up for acute hypoxic resp failure, septic shock, COVID-19 positive Patient remains intubated, no acute events overnight. Objective Last 24 Hour Vital Signs Date Time Temp Pulse Resp B/P (MAP) Pulse Ox O2 Delivery O2 Flow Rate FiO2 08/23/19 12:58 79 19 100 Mechanical Ventilator 40 80 18 40 08/23/19 12:00 Mechanical Ventilator 08/23/19 12:00 40 08/23/19 11:00 85 25 127/61 (83) 99 08/23/19 10:50 80 18 40 08/23/19 10:30 85 21 125/65 (85) 98 08/23/19 10:00 81 20 128/61 (83) 99 08/23/19 09:30 86 28 135/66 (89) 95 08/23/19 09:15 81 20 40 08/23/19 09:00 81 21 129/62 (84) 98 08/23/19 08:30 82 24 129/63 (85) 97 08/23/19 08:00 40 08/23/19 08:00 98.0 81 20 122/64 (83) 98 08/23/19 08:00 Mechanical Ventilator 08/23/19 07:35 81 25 100 Mechanical Ventilator 40 85 27 40 08/23/19 07:00 21 131/55 Mechanical Ventilator 40 08/23/19 07:00 81 19 125/63 (83) 99 08/23/19 06:30 89 19 08/23/19 06:30 82 20 129/61 (83) 98 08/23/19 06:05 20 122/62 Mechanical Ventilator 40 08/23/19 06:00 81 19 129/64 (85) 99 08/23/19 05:30 82 19 130/66 (87) 99 08/23/19 05:20 88 20 40 08/23/19 05:00 83 18 126/62 (83) 99 08/23/19 05:00 21 130/66 Mechanical Ventilator 40 08/23/19 04:30 86 21 123/49 (73) 98 08/23/19 04:00 21 123/49 Mechanical Ventilator 40 08/23/19 04:00 Mechanical Ventilator 08/23/19 04:00 97.8 87 27 134/82 (99) 98 08/23/19 04:00 85 08/23/19 04:00 40 08/23/19 03:30 86 19 122/64 (83) 98 08/23/19 03:03 84 21 40 08/23/19 03:00 85 20 126/71 (89) 99 08/23/19 03:00 21 122/64 Mechanical Ventilator 40 08/23/19 02:30 85 19 130/63 (85) 99 08/23/19 02:00 85 19 125/66 (85) 98 08/23/19 02:00 21 118/66 Mechanical Ventilator 40 08/23/19 01:30 83 19 129/66 (87) 98 08/23/19 01:00 93 24 131/85 (100) 99 08/23/19 01:00 21 130/63 Mechanical Ventilator 40 08/23/19 00:57 81 19 100 Mechanical Ventilator 40 86 24 40 08/23/19 00:30 82 18 118/66 (83) 99 08/23/19 00:00 97.8 81 19 130/65 (86) 100 08/23/19 00:00 Mechanical Ventilator 08/23/19 00:00 19 118/66 Mechanical Ventilator 40 08/23/19 00:00 81 08/22/19 23:30 81 19 131/67 (88) 99 08/22/19 23:20 83 20 40 08/22/19 23:00 83 19 126/68 (87) 100 08/22/19 23:00 20 131/67 Mechanical Ventilator 40 08/22/19 22:30 83 22 132/68 (89) 99 08/22/19 22:00 83 21 135/63 (87) 99 08/22/19 22:00 21 132/68 Mechanical Ventilator 40 08/22/19 21:30 86 29 141/68 (92) 98 08/22/19 21:09 92 21 40 08/22/19 21:00 81 21 125/79 (94) 99 08/22/19 21:00 21 136/75 Non-Rebreather 08/22/19 20:30 81 20 136/75 (95) 98 08/22/19 20:15 22 118/78 40 08/22/19 20:00 83 08/22/19 20:00 98.0 82 23 118/78 (91) 97 08/22/19 20:00 Mechanical Ventilator 08/22/19 20:00 40 08/22/19 19:30 79 24 94/44 (61) 99 08/22/19 19:27 80 23 99 Mechanical Ventilator 40 83 25 40 08/22/19 19:00 78 18 129/65 (86) 99 08/22/19 18:30 80 23 145/71 (95) 99 08/22/19 18:00 79 19 136/68 (90) 99 08/22/19 17:30 81 22 136/74 (94) 98 08/22/19 17:03 80 18 40 08/22/19 17:00 85 20 97/69 (78) 98 08/22/19 16:30 81 20 137/76 (96) 98 08/22/19 16:00 40 08/22/19 16:00 99.2 82 18 136/67 (90) 99 08/22/19 16:00 83 08/22/19 16:00 Mechanical Ventilator 08/22/19 15:30 83 19 127/64 (85) 99 08/22/19 15:04 84 19 40 08/22/19 15:00 84 19 140/71 (94) 98 08/22/19 14:30 84 20 132/69 (90) 98 08/22/19 14:00 84 18 130/70 (90) 98 08/22/19 13:30 85 21 137/70 (92) 96 Intake and Output 08/22/19 08/23/19 19:00 07:00 Intake Total 518.132 ml 24.31 ml Output Total 545 ml 490 ml Balance -26.868 ml -465.69 ml IV Total 488.132 ml 24.31 ml Other 30 ml Output Urine Total 545 ml 490 ml # Bowel Movements 1 2 Laboratory Tests 08/23/19 04:00: Ferritin 717H, C-Reactive Protein, Quantitative 29.6H, Triglycerides Level 133, Phenytoin (Dilantin) Level 29.8H Height (Feet): 5 Height (Inches): 8.00 Weight (Pounds): 162 General Appearance: other - Intubated Cardiovascular: normal rate, regular rhythm Respiratory/Chest: lungs clear, normal breath sounds Abdomen: non tender, soft Sergo Demarco MD Aug 23, 2019 13:02
--- NOTE | 2019-08-23 14:16 | NUR ---
NURSE NOTES: Asked Dr. Nash regarding start tube feeding. He said to start feeding per Licensed Nuclear Operator recommendation. Glucerna 1.2 @ 50 ml/hr. Order noted. Will start feeding during evening medication administration.
--- NOTE | 2019-08-23 15:37 | Infectious Diseases Prog Note ---
Assessment/Plan Assessment/Plan ASSESSMENT AND PLAN: 1. covid-19 virus infection, pna, sepsis, fevers, vent, respiratory failure - hydroxychloroquine, zosyn and vancomycin - f/u on cultures, labs and chest x-ray - supportive care, ivf, vent - d/w RN - remains critical 2. Respiratory failure, on vent. 3. History of hyperlipidemia. 4. History of hypertension. 5. Atherosclerotic heart disease. 6. CAD. 7. COPD. 8. Dementia. 9. Nonverbal at baseline. 10. History of seizures. 11. No known drug allergies. 12. Social history negative. 13. Family history noncontributory. 14. MAR was noted. 15. Case discussed with RN. 16. Continue treatment per primary consultants. Subjective Constitutional: Reports: fatigue, other - on vent, no pressors ; Denies: fever HEENT: Reports: congestion Respiratory: Reports: shortness of breath Cardiovascular: Reports: other - no pressors Gastrointestinal/Abdominal: Denies: nausea, vomiting, diarrhea Genitourinary: Reports: other - + verduzco Neurologic: Reports: other - lethargic, weak Psychiatric: Reports: other - NA Skin: Denies: rash Hematologic: Denies: bleeding Musculoskeletal: Reports: other - NA Allergies: Coded Allergies: No Known Allergies (Unverified , 02/29/16) Objective Vital Signs Last 24 Hour Vital Signs Date Time Temp Pulse Resp B/P (MAP) Pulse Ox O2 Delivery O2 Flow Rate FiO2 08/23/19 14:00 83 21 124/67 (86) 96 08/23/19 13:00 80 18 125/64 (84) 100 08/23/19 12:58 79 19 100 Mechanical Ventilator 40 80 18 40 08/23/19 12:00 Mechanical Ventilator 08/23/19 12:00 98.4 79 19 124/60 (81) 99 08/23/19 12:00 40 08/23/19 12:00 81 08/23/19 11:00 85 25 127/61 (83) 99 08/23/19 10:50 80 18 40 08/23/19 10:30 85 21 125/65 (85) 98 08/23/19 10:00 81 20 128/61 (83) 99 08/23/19 09:30 86 28 135/66 (89) 95 08/23/19 09:15 81 20 40 08/23/19 09:00 81 21 129/62 (84) 98 08/23/19 08:30 82 24 129/63 (85) 97 08/23/19 08:00 40 08/23/19 08:00 98.0 81 20 122/64 (83) 98 08/23/19 08:00 81 08/23/19 08:00 Mechanical Ventilator 08/23/19 07:35 81 25 100 Mechanical Ventilator 40 85 27 40 08/23/19 07:00 21 131/55 Mechanical Ventilator 40 08/23/19 07:00 81 19 125/63 (83) 99 08/23/19 06:30 89 19 08/23/19 06:30 82 20 129/61 (83) 98 08/23/19 06:05 20 122/62 Mechanical Ventilator 40 08/23/19 06:00 81 19 129/64 (85) 99 08/23/19 05:30 82 19 130/66 (87) 99 08/23/19 05:20 88 20 40 08/23/19 05:00 83 18 126/62 (83) 99 08/23/19 05:00 21 130/66 Mechanical Ventilator 40 08/23/19 04:30 86 21 123/49 (73) 98 08/23/19 04:00 21 123/49 Mechanical Ventilator 40 08/23/19 04:00 Mechanical Ventilator 08/23/19 04:00 97.8 87 27 134/82 (99) 98 08/23/19 04:00 85 08/23/19 04:00 40 08/23/19 03:30 86 19 122/64 (83) 98 08/23/19 03:03 84 21 40 08/23/19 03:00 85 20 126/71 (89) 99 08/23/19 03:00 21 122/64 Mechanical Ventilator 40 08/23/19 02:30 85 19 130/63 (85) 99 08/23/19 02:00 85 19 125/66 (85) 98 08/23/19 02:00 21 118/66 Mechanical Ventilator 40 08/23/19 01:30 83 19 129/66 (87) 98 08/23/19 01:00 93 24 131/85 (100) 99 08/23/19 01:00 21 130/63 Mechanical Ventilator 40 08/23/19 00:57 81 19 100 Mechanical Ventilator 40 86 24 40 08/23/19 00:30 82 18 118/66 (83) 99 08/23/19 00:00 97.8 81 19 130/65 (86) 100 08/23/19 00:00 Mechanical Ventilator 08/23/19 00:00 19 118/66 Mechanical Ventilator 40 08/23/19 00:00 81 08/22/19 23:30 81 19 131/67 (88) 99 08/22/19 23:20 83 20 40 08/22/19 23:00 83 19 126/68 (87) 100 08/22/19 23:00 20 131/67 Mechanical Ventilator 40 08/22/19 22:30 83 22 132/68 (89) 99 08/22/19 22:00 83 21 135/63 (87) 99 08/22/19 22:00 21 132/68 Mechanical Ventilator 40 08/22/19 21:30 86 29 141/68 (92) 98 08/22/19 21:09 92 21 40 08/22/19 21:00 81 21 125/79 (94) 99 08/22/19 21:00 21 136/75 Non-Rebreather 08/22/19 20:30 81 20 136/75 (95) 98 08/22/19 20:15 22 118/78 40 08/22/19 20:00 83 08/22/19 20:00 98.0 82 23 118/78 (91) 97 08/22/19 20:00 Mechanical Ventilator 08/22/19 20:00 40 08/22/19 19:30 79 24 94/44 (61) 99 08/22/19 19:27 80 23 99 Mechanical Ventilator 40 83 25 40 08/22/19 19:00 78 18 129/65 (86) 99 08/22/19 18:30 80 23 145/71 (95) 99 08/22/19 18:00 79 19 136/68 (90) 99 08/22/19 17:30 81 22 136/74 (94) 98 08/22/19 17:03 80 18 40 08/22/19 17:00 85 20 97/69 (78) 98 08/22/19 16:30 81 20 137/76 (96) 98 08/22/19 16:00 40 08/22/19 16:00 99.2 82 18 136/67 (90) 99 08/22/19 16:00 83 08/22/19 16:00 Mechanical Ventilator 08/22/19 15:30 83 19 127/64 (85) 99 Height (Feet): 5 Height (Inches): 8.00 Weight (Pounds): 162 General Appearance: other - on vent HEENT: normocephalic, atraumatic, anicteric, other - oral - intubated Respiratory/Chest: accessory muscle use, rhonchi - bilaterally Cardiovascular: normal rate, regular rhythm, no gallop/murmur Abdomen: normal bowel sounds, soft, non tender, no organomegaly, non distended Genitourinary: other Extremities: no cyanosis Skin: no rash Neurologic/Psychiatric: motor weakness, other - lethargic, on vent Lymphatic: no neck adenopathy Musculoskeletal: no effusion Objective Procedure: XRAY Chest 1v - 08/23/19 - Indication: Chest pain Technique: One view of the chest Comparison: 1 1/2 hours earlier Findings: Interim placement of a right jugular central venous catheter, tip which projects at the level of the high right atrium. No gross pneumothorax. Interim endotracheal intubation, endotracheal tube tip projecting approximately 6 cm above the darilne. Right upper lobe infiltrate is unchanged. Left retrocardiac opacification and likely left pleural effusion are unchanged. Impression: Endotracheal intubation Satisfactory placement right jugular central venous catheter, no radiographically evident complication Other stable findings as described Microbiology Date/Time Source Procedure Growth Status 08/19/19 17:30 Blood Blood Culture - Preliminary NO GROWTH AFTER 72 HOURS Resulted 08/19/19 18:30 Nasal Nares Right MRSA Culture - Final NO METHICILLIN RESISTANT STAPH AUREUS... Complete 08/19/19 18:30 Rectum - Final NO CARBAPENEM-RESISTANT ENTEROBACTERI... Complete Laboratory Tests Test 08/23/19 04:00 Ferritin 717 NG/ML (8-388) H C-Reactive Protein, Quantitative 29.6 mg/dL (0.00-0.90) H Triglycerides Level 133 MG/DL (30-150) Phenytoin (Dilantin) Level 29.8 ug/mL (10-20) H Current Medications Medications (Trade) Dose Ordered Sig/Vanessa Route PRN Reason Start Time Stop Time Status Last Admin Dose Admin Acetaminophen (Tylenol) 650 mg EVERY 6 HOURS PRN GT Temp >100.5 08/20/19 22:00 09/19/19 21:59 08/20/19 23:55 Albuterol Sulfate (Proventil MDI) 2 puff Q6HRT INH 08/22/19 13:00 11/20/19 12:59 08/23/19 12:58 Apixaban (Eliquis) 2.5 mg BID ORAL 08/20/19 18:00 11/18/19 17:59 08/23/19 09:38 Chlorhexidine Gluconate (Antonella-Hex 2%) 1 applic DAILY@2000 TOPIC 08/21/19 20:00 11/19/19 19:59 08/22/19 20:15 Hydroxychloroquine Sulfate (Plaquenil) 200 mg BID ORAL 08/20/19 18:00 08/24/19 09:01 08/23/19 09:38 Ipratropium Harrington (Atrovent Inh) 1 puffs Q6HRT INH 08/22/19 13:00 09/21/19 12:59 08/23/19 12:58 Levetiracetam (Keppra) 1,500 mg Q12HR GT 08/20/19 21:00 09/19/19 20:59 08/23/19 09:38 Phenytoin (Dilantin) 250 mg DAILY GT 08/21/19 09:00 09/20/19 08:59 Future Hold Piperacillin Sod/ Tazobactam Sod 3.375 gm/Dextrose 100 ml @ 25 mls/hr EVERY 8 HOURS IVPB 08/20/19 22:00 08/25/19 21:59 08/23/19 13:49 Propofol 100 ml @ 0 mls/hr Q24H IV 08/22/19 19:15 08/24/19 19:14 08/22/19 20:15 Tamsulosin HCl (Flomax) 0.4 mg BEDTIME ORAL 08/20/19 21:00 09/19/19 20:59 08/22/19 20:46 Vancomycin HCl (Vanco rx to dose) 1 ea DAILY PRN MISC Per rx protocol 08/20/19 14:30 09/19/19 14:29 Vancomycin HCl 1 gm/Dextrose 275 ml @ 183.708 mls/hr Q24H IVPB 08/21/19 18:00 08/26/19 17:59 08/22/19 17:27 Gwen Velásquez MD Aug 23, 2019 15:37
[2019-08-23] MEDS: Vancomycin 1gm/D5W 275ml IVPB SCH ×6 (16:58→18:40)
--- NOTE | 2019-08-23 17:31 | NUR ---
NURSE NOTES: blood drawn and sent to lab for vanco trough. 1800 dose on hold until results are back
--- NOTE | 2019-08-23 19:14 | NUR ---
NURSE NOTES: Per Dr. Nash, start to titrate patient off of propofol drip for weening in the morning. Made night nurse aware.
--- NOTE | 2019-08-23 19:31 | NUR ---
HAND-OFF: Report given to LORENE Lopez. Pt in stable condition; plan of care endorsed.
--- NOTE | 2019-08-23 20:00 | NUR ---
Nurse Note: Report received from LORENE Ordonez for continuity of care. Pt remains at same condition from change of shift. Pt nonverbal, responds to deep pain. Pt laying in bed, no signs of acute distress. Pt on vent, ETT 7.5, 21cm at lip, VT400, FiO2 40% and PEEP of 5. Right IJ running propofol drip @ 5 mcg; BP controlled. G-tube in place with 10cc of Glucerna 1.2, no residual noted. Swartz cath patent, urine output present. Non behavioral bilateral soft wrist restraints noted; no skin issues around the wrist. All safety measures met; will continue to monitor.
[2019-08-23] MEDS: Dyna-Hex 2% Top Sol 2oz TOPIC SCH (20:27)
[2019-08-23] MEDS: Tamsulosin 0.4mg cap ORAL SCH (20:27)
--- NOTE | 2019-08-23 21:25 | Neurology Progress Note ---
Interim History Interim History ROS Limited/Unobtainable: Yes Interim History intubated on propofol Objective Physical Exam Last Vital Signs Date Time Temp Pulse Resp B/P (MAP) Pulse Ox O2 Delivery O2 Flow Rate FiO2 08/23/19 20:08 91 21 98 Mechanical Ventilator 40 91 21 40 08/23/19 19:00 125/58 08/23/19 16:00 97.9 08/20/19 20:16 2.0 Laboratory Tests Test 08/23/19 04:00 08/23/19 17:15 Ferritin 717 NG/ML (8-388) H C-Reactive Protein, Quantitative 29.6 mg/dL (0.00-0.90) H Triglycerides Level 133 MG/DL (30-150) Phenytoin (Dilantin) Level 29.8 ug/mL (10-20) H Vancomycin Level Trough 9.6 ug/mL (5.0-12.0) Neurologic Exam Objective intubated, sedated, minimal withdraw cc 35 min Impression/Recommendations Problems: (1) Suspected 2019 novel coronavirus infection (2) Multi-infarct dementia (3) Uncontrolled seizures (4) History of CVA (cerebrovascular accident) (5) Acute encephalopathy (6) Aspiration pneumonia (7) Respiratory failure Diagnostic Impression icu level of care cont keppra and dilantin Monitor for seizures covid ro started atb wean off sedation when able Ivan Rose MD Aug 23, 2019 21:25
--- NOTE | 2019-08-23 22:00 | NUR ---
Nurse Note: PRN Tylenol to be given d/t axillary temp of 102.1F; cooling measures taken. Pt remains at baseline otherwise. Urine output noted in Swartz cath. All safety measures met; will continue to monitor.
[2019-08-24] VITALS (36 sets, daily range): BP systolic 102–149; BP diastolic 43–122
--- NOTE | 2019-08-24 | NUR ---
Nurse Note: Rechecked axillary temp; 100.8F PRN Tylenol given via g-tube. Pt tolerating propofol well, BP controlled and MAP >65. Pt vented, no signs of desaturation. Bilateral soft wrist restraints remain intact; dependent pitting edema noted, extremities elevated, bilateral radial pulses felt. Swartz cath intact, urine output >30mls, Swartz care completed as needed. Oral care completed. No BM. All safety measures met; will continue to monitor.
[2019-08-24] MEDS: Acetaminophen 650mg/20.3ml GT PRN (00:36)
[2019-08-24] MEDS: Ipratropium Bromide Inhaler INH SCH ×4 (01:00→19:14)
[2019-08-24] MEDS: Albuterol 90mcg Inhaler 8gm INH SCH ×4 (01:00→19:14)
--- NOTE | 2019-08-24 03:00 | NUR ---
Nurse Note: Pt remains stable. ETT in place, no changes to vent. Urine output greater than 30cc. Pt kept clean and dry. All safety measures met; will continue to monitor.
[2019-08-24] MEDS: Vancomycin 500mg/D5W 110ml IVPB SCH ×4 (05:05→17:48)
[2019-08-24 06:23] LABS: BASOPHILS % (AUTO) 0.5 % (0.0-2.0); EOSINOPHILS % (AUTO) 2.3 % (0.0-3.0); HEMATOCRIT 35.3 % (42.0-52.0); HEMOGLOBIN 12.2 G/DL (14.2-18.0); LYMPHOCYTES % (AUTO) 15.8 % (20.0-45.0); MEAN CORPUSCULAR VOLUME 90 FL (80-99); MONOCYTES % (AUTO) 6.7 % (1.0-10.0); NEUTROPHILS % (AUTO) 74.7 % (45.0-75.0); PLATELET COUNT 153 K/UL (150-450); RED BLOOD COUNT 3.92 M/UL (4.70-6.10); RED CELL DISTRIBUTION WIDTH 12.6 % (11.6-14.8); WHITE BLOOD COUNT 4.3 K/UL (4.8-10.8)
[2019-08-24 06:50] LABS: ALANINE AMINOTRANSFERASE 70 U/L (12-78); ALBUMIN 1.6 G/DL (3.4-5.0); ALBUMIN/GLOBULIN RATIO 0.4 (1.0-2.7); ALKALINE PHOSPHATASE 247 U/L (46-116); ANION GAP 10 mmol/L (5-15); ASPARTATE AMINO TRANSFERASE 139 U/L (15-37); BILIRUBIN,TOTAL 0.9 MG/DL (0.2-1.0); BLOOD UREA NITROGEN 14 mg/dL (7-18); CALCIUM 7.5 MG/DL (8.5-10.1); CARBON DIOXIDE 26 MMOL/L (21-32); CHLORIDE 103 MMOL/L (98-107); CREATININE 0.9 MG/DL (0.55-1.30); FERRITIN 593 NG/ML (8-388); POTASSIUM 3.1 MMOL/L (3.5-5.1); SODIUM 139 MMOL/L (136-145)
--- NOTE | 2019-08-24 07:22 | NUR ---
Nurse Note: Report given to LORENE Rocha for continuity of care.
[2019-08-24] MEDS: levETIRAcetam 500mg/5ml Liquid GT SCH ×2 (10:01→20:34)
[2019-08-24] MEDS: Eliquis 2.5mg tablet ORAL SCH ×2 (10:02→17:48)
--- NOTE | 2019-08-24 10:56 | NUR ---
NURSE NOTES: Bowel movement cleaning provided and applied triad to the sacral region. patient skin remains a DTI with maroon color. repositioned to of load pressure on the sacrum and elevated heels. patient remains on the ventilator with settings of Ac 18, TV: 400, FIO2:40%with peep of 5.
--- NOTE | 2019-08-24 11:49 | General Progress Note ---
Assessment/Plan Assessment/Plan: 83YO M with HTN, HLD, COPD, CAD, Seizure disorder presenting with cough and shortness of breath. In the ED, patient was found to be tachycardic (130's) and tachypnic (33) and febrile at 101.2. 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 -Continue vent management per the ICU team, daily SBT -Daily labs. -Contact plus droplet isolation. -ID and Pulm following #History of Seizure disorder: -cont Dilantin and Keppra -Neurology following #HTN #HLD #CAD #Eliquis use I spent 75 minutes on this patient's case, and 30 mins was dedicated to critical care Critical Care Services performed include: Telemetry Review Hemodynamic measurement interpretation Laboratory data review and interpretation Radiology image review and interpretation Ventilator setting review, management, and adjustment Interpretation of ABG's Discussion of patient's care with ICU team, ICU Nursing staff and/or consulting services Subjective ROS Limited/Unobtainable: Yes - Pt intubated Allergies: Coded Allergies: No Known Allergies (Unverified , 02/29/16) Subjective Follow up for acute hypoxic resp failure, septic shock, COVID-19 positive Patient remains intubated, no acute events overnight. Objective Last 24 Hour Vital Signs Date Time Temp Pulse Resp B/P (MAP) Pulse Ox O2 Delivery O2 Flow Rate FiO2 08/24/19 11:30 91 25 124/59 (80) 96 08/24/19 11:15 89 26 40 08/24/19 11:00 89 26 135/50 (78) 96 08/24/19 10:30 91 28 136/118 (124) 95 08/24/19 10:00 85 21 118/63 (81) 97 08/24/19 09:30 80 19 118/60 (79) 98 08/24/19 09:10 91 20 40 08/24/19 09:00 80 20 121/48 (72) 98 08/24/19 08:30 82 20 118/59 (78) 97 08/24/19 08:00 40 08/24/19 08:00 Mechanical Ventilator 08/24/19 08:00 99.3 82 21 127/60 (82) 96 08/24/19 08:00 82 08/24/19 07:30 81 20 109/52 (71) 97 08/24/19 07:25 83 31 96 Mechanical Ventilator 40 83 31 40 08/24/19 07:00 82 21 121/58 (79) 97 08/24/19 06:30 96 27 08/24/19 06:30 20 117/55 Mechanical Ventilator 40 08/24/19 06:15 19 119/59 Mechanical Ventilator 40 08/24/19 06:09 100.0 08/24/19 06:01 102.1 08/24/19 06:00 28 133/67 Mechanical Ventilator 40 08/24/19 06:00 84 24 119/59 (79) 95 08/24/19 05:45 21 108/58 Mechanical Ventilator 40 08/24/19 05:30 21 119/59 Mechanical Ventilator 40 08/24/19 05:00 82 20 114/52 (72) 95 08/24/19 05:00 21 88/24 Mechanical Ventilator 40 08/24/19 04:00 Mechanical Ventilator 08/24/19 04:00 79 08/24/19 04:00 20 116/55 Mechanical Ventilator 40 08/24/19 04:00 40 08/24/19 04:00 82 28 116/55 (75) 93 08/24/19 03:00 79 19 102/55 (71) 95 08/24/19 03:00 86 33 40 08/24/19 03:00 21 111/54 Mechanical Ventilator 40 08/24/19 02:00 85 21 111/54 (73) 95 08/24/19 02:00 20 102/51 Mechanical Ventilator 40 08/24/19 01:05 79 16 100 Mechanical Ventilator 40 82 17 40 08/24/19 01:00 86 25 102/51 (68) 95 08/24/19 01:00 20 102/51 Mechanical Ventilator 40 08/24/19 00:00 Mechanical Ventilator 08/24/19 00:00 21 114/56 Mechanical Ventilator 40 08/24/19 00:00 100.1 84 20 112/57 (75) 97 08/23/19 23:00 20 114/56 Mechanical Ventilator 40 08/23/19 23:00 85 21 113/58 (76) 98 08/23/19 22:54 80 17 40 08/23/19 22:00 20 113/56 Mechanical Ventilator 40 08/23/19 22:00 86 20 113/56 (75) 98 08/23/19 21:00 86 21 121/57 (78) 98 08/23/19 21:00 21 121/57 Mechanical Ventilator 40 08/23/19 20:08 91 21 98 Mechanical Ventilator 40 91 21 40 08/23/19 20:00 102.1 90 21 127/57 (80) 98 08/23/19 20:00 Mechanical Ventilator 08/23/19 20:00 21 127/57 Mechanical Ventilator 40 08/23/19 20:00 90 08/23/19 20:00 40 08/23/19 19:15 20 127/57 Mechanical Ventilator 40 08/23/19 19:00 20 125/58 Mechanical Ventilator 40 08/23/19 19:00 82 20 125/56 (79) 99 08/23/19 18:00 20 119/60 Mechanical Ventilator 40 08/23/19 18:00 83 20 124/58 (80) 98 08/23/19 17:10 82 18 40 08/23/19 17:00 83 18 118/57 (77) 99 08/23/19 17:00 20 125/60 Mechanical Ventilator 40 08/23/19 16:00 40 08/23/19 16:00 97.9 82 18 123/59 (80) 99 08/23/19 16:00 Mechanical Ventilator 08/23/19 16:00 18 121/59 Mechanical Ventilator 40 08/23/19 16:00 82 08/23/19 15:00 82 18 119/61 (80) 97 08/23/19 15:00 19 121/58 Mechanical Ventilator 40 08/23/19 14:30 83 18 40 08/23/19 14:00 83 21 124/67 (86) 96 08/23/19 14:00 19 121/58 Mechanical Ventilator 40 08/23/19 13:00 80 18 125/64 (84) 100 08/23/19 13:00 20 127/62 Mechanical Ventilator 40 08/23/19 12:58 79 19 100 Mechanical Ventilator 40 80 18 40 08/23/19 12:00 Mechanical Ventilator 08/23/19 12:00 98.4 79 19 124/60 (81) 99 08/23/19 12:00 20 125/65 Mechanical Ventilator 40 08/23/19 12:00 40 08/23/19 12:00 81 Intake and Output 08/23/19 08/24/19 19:00 07:00 Intake Total 46.616 ml 300 ml Output Total 645 ml 475 ml Balance -598.384 ml -175 ml Free Water 60 ml IV Total 26.616 ml 100 ml Tube Feeding 20 ml 140 ml Output Urine Total 645 ml 475 ml # Bowel Movements 1 Laboratory Tests 08/23/19 17:15: Vancomycin Level Trough 9.6 08/24/19 05:30: White Blood Count 4.3L, Red Blood Count 3.92L, Hemoglobin 12.2L, Hematocrit 35.3L, Mean Corpuscular Volume 90, Mean Corpuscular Hemoglobin 31.1H, Mean Corpuscular Hemoglobin Concent 34.5, Red Cell Distribution Width 12.6, Platelet Count 153, Mean Platelet Volume 6.8, Neutrophils (%) (Auto) 74.7, Lymphocytes (% ) (Auto) 15.8L, Monocytes (%) (Auto) 6.7, Eosinophils (%) (Auto) 2.3, Basophils (%) (Auto) 0.5, Sodium Level 139, Potassium Level 3.1L, Chloride Level 103, Carbon Dioxide Level 26, Anion Gap 10, Blood Urea Nitrogen 14, Creatinine 0.9, Estimat Glomerular Filtration Rate > 60, Glucose Level 161H, Calcium Level 7.5L , Ferritin 593H, Total Bilirubin 0.9, Aspartate Amino Transf (AST/SGOT) 139H, Alanine Aminotransferase (ALT/SGPT) 70, Alkaline Phosphatase 247H, C-Reactive Protein, Quantitative 21.7H, Total Protein 5.9L, Albumin 1.6L, Globulin 4.3, Albumin/Globulin Ratio 0.4L Height (Feet): 5 Height (Inches): 8.00 Weight (Pounds): 163 Objective General Appearance: other - Intubated Cardiovascular: normal rate, regular rhythm Respiratory/Chest: lungs clear, normal breath sounds Abdomen: non tender, soft Ext: no edema Liliana Leal M.D. Aug 24, 2019 11:49
--- NOTE | 2019-08-24 12:30 | NUR ---
NURSE NOTES: Patient vital signs taken and repositioned. oral care provided and skin assessed on sacral and wrist. Swartz remains draining urine with no sediments noted.
--- NOTE | 2019-08-24 13:02 | Pulmonolgy Critical Care Note ---
Critical Care - Asmt/Plan Problems: (1) Respiratory failure (2) Suspected 2019 novel coronavirus infection (3) History of CVA (cerebrovascular accident) (4) Acute encephalopathy (5) Multi-infarct dementia (6) Uncontrolled seizures Assessment/Plan: Continue ventilatory support, settings reviewed: TV 400 AC 14 PEEP 5 FiO2 40 LPV Daily SBT Monitor gas exchange STRONGLY CONSIDER HHN's in line with Vent May consider GC's based on trajectory Plaquenil (D4) Vanco/Zosyn per ID Daily CRP and ferritin D/W pharmacy RE: Tociluzumab - per pharmacist on national shortage and cannot get, will continue to follow up Remdesivir limited to trial, cannot get under compassionate care Monitor volumes and renal function Wean sedation to allow SBT F/U neuro recs, continue AED's Monitor LFT's TF's DVT Px: Eliquis FC, continue to discuss GOC Disposition: keep in ICU Time Spent (Minutes): 40 Notes Reviewed: hand sewer, ID, neuro Discussed with: nurses, consultants Critical Care - Objective Last 24 Hour Vital Signs Date Time Temp Pulse Resp B/P (MAP) Pulse Ox O2 Delivery O2 Flow Rate FiO2 08/24/19 12:10 88 08/24/19 12:00 40 08/24/19 11:30 91 25 124/59 (80) 96 08/24/19 11:15 89 26 40 08/24/19 11:00 89 26 135/50 (78) 96 08/24/19 10:30 91 28 136/118 (124) 95 08/24/19 10:00 85 21 118/63 (81) 97 08/24/19 09:30 80 19 118/60 (79) 98 08/24/19 09:10 91 20 40 08/24/19 09:00 80 20 121/48 (72) 98 08/24/19 08:30 82 20 118/59 (78) 97 08/24/19 08:00 40 08/24/19 08:00 Mechanical Ventilator 08/24/19 08:00 99.3 82 21 127/60 (82) 96 08/24/19 08:00 82 08/24/19 07:30 81 20 109/52 (71) 97 08/24/19 07:25 83 31 96 Mechanical Ventilator 40 83 31 40 08/24/19 07:00 82 21 121/58 (79) 97 4/11/20 06:30 96 27 08/24/19 06:30 20 117/55 Mechanical Ventilator 40 08/24/19 06:15 19 119/59 Mechanical Ventilator 40 08/24/19 06:09 100.0 08/24/19 06:01 102.1 08/24/19 06:00 28 133/67 Mechanical Ventilator 40 08/24/19 06:00 84 24 119/59 (79) 95 08/24/19 05:45 21 108/58 Mechanical Ventilator 40 08/24/19 05:30 21 119/59 Mechanical Ventilator 40 08/24/19 05:00 82 20 114/52 (72) 95 08/24/19 05:00 21 88/24 Mechanical Ventilator 40 08/24/19 04:00 Mechanical Ventilator 08/24/19 04:00 79 08/24/19 04:00 20 116/55 Mechanical Ventilator 40 08/24/19 04:00 40 08/24/19 04:00 82 28 116/55 (75) 93 08/24/19 03:00 79 19 102/55 (71) 95 08/24/19 03:00 86 33 40 08/24/19 03:00 21 111/54 Mechanical Ventilator 40 08/24/19 02:00 85 21 111/54 (73) 95 08/24/19 02:00 20 102/51 Mechanical Ventilator 40 08/24/19 01:05 79 16 100 Mechanical Ventilator 40 82 17 40 08/24/19 01:00 86 25 102/51 (68) 95 08/24/19 01:00 20 102/51 Mechanical Ventilator 40 08/24/19 00:00 Mechanical Ventilator 08/24/19 00:00 21 114/56 Mechanical Ventilator 40 08/24/19 00:00 100.1 84 20 112/57 (75) 97 08/23/19 23:00 20 114/56 Mechanical Ventilator 40 08/23/19 23:00 85 21 113/58 (76) 98 08/23/19 22:54 80 17 40 08/23/19 22:00 20 113/56 Mechanical Ventilator 40 08/23/19 22:00 86 20 113/56 (75) 98 08/23/19 21:00 86 21 121/57 (78) 98 08/23/19 21:00 21 121/57 Mechanical Ventilator 40 08/23/19 20:08 91 21 98 Mechanical Ventilator 40 91 21 40 08/23/19 20:00 102.1 90 21 127/57 (80) 98 08/23/19 20:00 Mechanical Ventilator 08/23/19 20:00 21 127/57 Mechanical Ventilator 40 08/23/19 20:00 90 08/23/19 20:00 40 08/23/19 19:15 20 127/57 Mechanical Ventilator 40 08/23/19 19:00 20 125/58 Mechanical Ventilator 40 08/23/19 19:00 82 20 125/56 (79) 99 08/23/19 18:00 20 119/60 Mechanical Ventilator 40 08/23/19 18:00 83 20 124/58 (80) 98 08/23/19 17:10 82 18 40 08/23/19 17:00 83 18 118/57 (77) 99 08/23/19 17:00 20 125/60 Mechanical Ventilator 40 08/23/19 16:00 40 08/23/19 16:00 97.9 82 18 123/59 (80) 99 08/23/19 16:00 Mechanical Ventilator 08/23/19 16:00 18 121/59 Mechanical Ventilator 40 08/23/19 16:00 82 08/23/19 15:00 82 18 119/61 (80) 97 08/23/19 15:00 19 121/58 Mechanical Ventilator 40 08/23/19 14:30 83 18 40 08/23/19 14:00 83 21 124/67 (86) 96 08/23/19 14:00 19 121/58 Mechanical Ventilator 40 Status: sedated Condition: critical HEENT: other - intubated, no distress Blood Sugars: BS controlled Critical Care - Subjective ROS Limited/Unobtainable: Yes ICU Day: 4 Intubation Day: 5 Interval Events: Stable on vent NAEO FiO2 40/5 Condition: critical IV Access: central - R IJ EKG Rhythm: Sinus Rhythm FI02: 40 Vent Support Breath Rate: 18 Vent Support Mode: AC Vent Tidal Volume: 400 Sputum Amount: Moderate PEEP: 5.0 PIP: 26 Secretions: mod clear Fluids: SLIV Drips: Propofol Tube Feeding Amount: 20 I&O: Intake and Output 08/23/19 08/24/19 19:00 07:00 Intake Total 46.616 ml 300 ml Output Total 645 ml 475 ml Balance -598.384 ml -175 ml Free Water 60 ml IV Total 26.616 ml 100 ml Tube Feeding 20 ml 140 ml Output Urine Total 645 ml 475 ml # Bowel Movements 1 Subjective: REYMUNDO ET-Tube: 7.5 ET Position: 21 Labs: Laboratory Tests Test 08/23/19 17:15 08/24/19 05:30 Vancomycin Level Trough 9.6 ug/mL (5.0-12.0) White Blood Count 4.3 K/UL (4.8-10.8) L Red Blood Count 3.92 M/UL (4.70-6.10) L Hemoglobin 12.2 G/DL (14.2-18.0) L Hematocrit 35.3 % (42.0-52.0) L Mean Corpuscular Volume 90 FL (80-99) Mean Corpuscular Hemoglobin 31.1 PG (27.0-31.0) H Mean Corpuscular Hemoglobin Concent 34.5 G/DL (32.0-36.0) Red Cell Distribution Width 12.6 % (11.6-14.8) Platelet Count 153 K/UL (150-450) Mean Platelet Volume 6.8 FL (6.5-10.1) Neutrophils (%) (Auto) 74.7 % (45.0-75.0) Lymphocytes (%) (Auto) 15.8 % (20.0-45.0) L Monocytes (%) (Auto) 6.7 % (1.0-10.0) Eosinophils (%) (Auto) 2.3 % (0.0-3.0) Basophils (%) (Auto) 0.5 % (0.0-2.0) Sodium Level 139 MMOL/L (136-145) Potassium Level 3.1 MMOL/L (3.5-5.1) L Chloride Level 103 MMOL/L (98-107) Carbon Dioxide Level 26 MMOL/L (21-32) Anion Gap 10 mmol/L (5-15) Blood Urea Nitrogen 14 mg/dL (7-18) Creatinine 0.9 MG/DL (0.55-1.30) Estimat Glomerular Filtration Rate > 60 mL/min (>60) Glucose Level 161 MG/DL (74-106) H Calcium Level 7.5 MG/DL (8.5-10.1) L Ferritin 593 NG/ML (8-388) H Total Bilirubin 0.9 MG/DL (0.2-1.0) Aspartate Amino Transf (AST/SGOT) 139 U/L (15-37) H Alanine Aminotransferase (ALT/SGPT) 70 U/L (12-78) Alkaline Phosphatase 247 U/L (46-116) H C-Reactive Protein, Quantitative 21.7 mg/dL (0.00-0.90) H Total Protein 5.9 G/DL (6.4-8.2) L Albumin 1.6 G/DL (3.4-5.0) L Globulin 4.3 g/dL Albumin/Globulin Ratio 0.4 (1.0-2.7) L David Nash MD Aug 24, 2019 13:02
--- NOTE | 2019-08-24 14:30 | NUR ---
NURSE NOTES: Entered patient room to administer 1400 medications, repositioned and suctioned. Ventilator monitor alarmed and prompted a VTminite volume low. cleared secretions and called RT to the bedside for assistance.
--- NOTE | 2019-08-24 15:55 | NUR ---
NURSE NOTES: Dr. Nash called to inform patient is continuously breathing with low minute volumes after RT assistance at the bedside, will call ER doctor to replace ET-tube.
--- NOTE | 2019-08-24 16:25 | NUR ---
RESPIRATORY NOTES ER doctor called up to reintubate PT due to a suspected blown cuff. PT was reintubated with a 7.5 ET tube - 26cm at the lip. Following reintubation, PT has become stable. Will continue to monitor.
--- NOTE | 2019-08-24 16:52 | Emergency Room Report ---
Physical Exam Vital Signs Date Time Temp Pulse Resp B/P (MAP) Pulse Ox O2 Delivery O2 Flow Rate FiO2 08/20/19 07:00 16 159/89 Mechanical Ventilator 08/20/19 07:30 123 40 08/20/19 08:00 100 08/20/19 08:03 2.0 08/20/19 15:00 99.0 Medical Decision Making Diagnostic Impression: Primary Impression: Suspected 2019 novel coronavirus infection Additional Impression: Respiratory failure ER Course Called to the ICU to exchange endotracheal tube due to suspected burst cuff. Patient's tidal volumes have been dropping. Patient sedated on propofol drip. 7.5 endotracheal tube was exchanged over a bougie for another 7.5 endotracheal tube. Secured at 24 cm at the lip. Oxygenation remained steady throughout. Equal chest rise with symmetrical lung sounds. No complications. Chest x-ray confirms appropriate positioning. Care per ICU team. Recall as needed. Chest X-Ray Diagnostic Results Chest X-Ray Diagnostic Results : Chest X-Ray Ordered: Yes # of Views/Limited/Complete: 1 View Indication: Other - Intubation EP Interpretation: Yes Interpretation: other - Endotracheal tube in place above the darline Impression: Other - Endotracheal tube in satisfactory position above the darline Electronically Signed by: Electronically signed by Dr. Tristin Schwab Last Vital Signs Date Time Temp Pulse Resp B/P (MAP) Pulse Ox O2 Delivery O2 Flow Rate FiO2 08/24/19 16:00 95 08/24/19 16:00 40 08/24/19 16:00 Mechanical Ventilator 08/24/19 16:00 38 149/94 (112) 93 08/24/19 12:00 97.5 08/20/19 20:16 2.0 Disposition: ADMITTED INPATIENT Condition: Critical Referrals: NON PHYSICIAN (PCP) Procedures Intubation Intubation : Consent: Emergent Intubation Method: orotracheal Tube Size (cm): 7.5 Medications: Other - Sedated on propofol drip Breath Sounds after Intubation: equal Intubation Complications: no complications Post Intubation Xray: Yes Attempts: One Patient Tolerated: Well Complications: None Tristin Schwab MD Aug 24, 2019 16:52
--- NOTE | 2019-08-24 16:55 | NUR ---
NURSE NOTES: Dr. Schwab called by Dr. Nash for ET-tube replacement, patient was noted to be having RR at 45-55 shallow and rapid. volumes on the ventilator monitor was noted to be at 55-95ml/breaths. patient remains saturating at 90-93% at 40%. Patient tolerate procedure well and inserted tube on first attempt. Chest X-ray ordered to verify placement.
--- NOTE | 2019-08-24 18:23 | NUR ---
NURSE NOTES: Chest X-ray taken to Confirm placement of ET-Tube, ET-tube is a 7.5 at 25cm at the upper lip. awaiting for result for tube placement. patient is saturating at 95-97% with no distress and RR 26-29 with volumes at 340-385ml per breaths. patient HR is at 90-92 with no arrhythmias noted.
--- NOTE | 2019-08-24 18:35 | Diagnostic Imaging Report ---
EXAM: XR Chest, 1 View CLINICAL HISTORY: S/P INTUB TECHNIQUE: Frontal view of the chest. COMPARISON: 08/19/2019. FINDINGS: Lungs: Mildly worsened bilateral pulmonary infiltrates/edema. Pleural space: Possible left pleural effusion. No pneumothorax. Heart: Mild cardiomegaly. Mediastinum: Stable. Bones/joints: Sternotomy. Tubes, lines and devices: ET tube 3 cm above darline. Stable right IJ line. IMPRESSION: Mildly worsened bilateral pulmonary infiltrates/edema.
--- NOTE | 2019-08-24 18:36 | NUR ---
NURSE NOTES: Dr. marino rounded and updated on patient status, no verbal orders given at this time.
--- NOTE | 2019-08-24 18:53 | Neurology Progress Note ---
Interim History Interim History ROS Limited/Unobtainable: Yes Interim History remains sedated Objective Physical Exam Last Vital Signs Date Time Temp Pulse Resp B/P (MAP) Pulse Ox O2 Delivery O2 Flow Rate FiO2 08/24/19 18:00 98 25 115/68 (84) 93 08/24/19 17:14 40 08/24/19 16:00 Mechanical Ventilator 08/24/19 12:00 97.5 08/20/19 20:16 2.0 Laboratory Tests Test 08/24/19 05:30 White Blood Count 4.3 K/UL (4.8-10.8) L Red Blood Count 3.92 M/UL (4.70-6.10) L Hemoglobin 12.2 G/DL (14.2-18.0) L Hematocrit 35.3 % (42.0-52.0) L Mean Corpuscular Volume 90 FL (80-99) Mean Corpuscular Hemoglobin 31.1 PG (27.0-31.0) H Mean Corpuscular Hemoglobin Concent 34.5 G/DL (32.0-36.0) Red Cell Distribution Width 12.6 % (11.6-14.8) Platelet Count 153 K/UL (150-450) Mean Platelet Volume 6.8 FL (6.5-10.1) Neutrophils (%) (Auto) 74.7 % (45.0-75.0) Lymphocytes (%) (Auto) 15.8 % (20.0-45.0) L Monocytes (%) (Auto) 6.7 % (1.0-10.0) Eosinophils (%) (Auto) 2.3 % (0.0-3.0) Basophils (%) (Auto) 0.5 % (0.0-2.0) Sodium Level 139 MMOL/L (136-145) Potassium Level 3.1 MMOL/L (3.5-5.1) L Chloride Level 103 MMOL/L (98-107) Carbon Dioxide Level 26 MMOL/L (21-32) Anion Gap 10 mmol/L (5-15) Blood Urea Nitrogen 14 mg/dL (7-18) Creatinine 0.9 MG/DL (0.55-1.30) Estimat Glomerular Filtration Rate > 60 mL/min (>60) Glucose Level 161 MG/DL (74-106) H Calcium Level 7.5 MG/DL (8.5-10.1) L Ferritin 593 NG/ML (8-388) H Total Bilirubin 0.9 MG/DL (0.2-1.0) Aspartate Amino Transf (AST/SGOT) 139 U/L (15-37) H Alanine Aminotransferase (ALT/SGPT) 70 U/L (12-78) Alkaline Phosphatase 247 U/L (46-116) H C-Reactive Protein, Quantitative 21.7 mg/dL (0.00-0.90) H Total Protein 5.9 G/DL (6.4-8.2) L Albumin 1.6 G/DL (3.4-5.0) L Globulin 4.3 g/dL Albumin/Globulin Ratio 0.4 (1.0-2.7) L Neurologic Exam Objective intubated, sedated, minimal withdraw cc 35 min Impression/Recommendations Problems: (1) Suspected 2019 novel coronavirus infection (2) Multi-infarct dementia (3) Uncontrolled seizures (4) History of CVA (cerebrovascular accident) (5) Acute encephalopathy (6) Aspiration pneumonia (7) Respiratory failure Diagnostic Impression icu level of care cont tre and macario Monitor for seizures covid ro started atb wean off sedation when able Ivan Rose MD Aug 24, 2019 18:53
--- NOTE | 2019-08-24 19:22 | NUR ---
HAND-OFF: Report given to LORENE Lopez.
--- NOTE | 2019-08-24 19:50 | NUR ---
Nurse Note: Received report from LORENE Rocha for continuity of care. Pt nonverbal, responds to deep pain. Pt laying in bed, no signs of acute distress. Pt on vent, ETT 7.5, 25 cm at lip, VT400, FiO2 40% and Peep of 5. Per AM nurse, pt was reintubated with ETT 7.5, 25 at lip line. Right IJ running propofol drip @ 3 mcg; BP controlled. G-tube in place with feeding Glucernia 1.2 turned off. Swartz cath patent, urine output present. All safety measures met; will continue to monitor.
[2019-08-24] MEDS: Dyna-Hex 2% Top Sol 2oz TOPIC SCH (20:34)
[2019-08-24] MEDS: Tamsulosin 0.4mg cap ORAL SCH (20:34)
[2019-08-24] MEDS ORDERED: NS 275ml ONE (21:11)
--- NOTE | 2019-08-24 22:30 | NUR ---
Nurse Note: Pt remains calm, no signs of distress, VSS, stable on vent. No changes to vent settings. RT IJ patent; propofol infusing at 3 mcg/kg/min. Gtube flushed, no residual. Feeding turned off; will restart in 2 hrs. Urine output >30ml/hr. Turned q2hr as needed. All safety measures met; will continue to monitor.
[2019-08-25] VITALS (33 sets, daily range): BP systolic 90–158; BP diastolic 44–97
--- NOTE | 2019-08-25 00:30 | NUR ---
Nurse Note: Tube feeding restarted. All orders completed per current orders. No deviations from change of shift. Will continue to monitor.
[2019-08-25] MEDS: Ipratropium Bromide Inhaler INH SCH ×4 (00:59→19:10)
--- NOTE | 2019-08-25 03:00 | NUR ---
Nurse Note: Pt remains at stable condition, no acute distress. One soft medium BM. Pt cleaned, wound care, picture taken and uploaded. Rectal temp 102.4F; Tylenol to be given and cooling measures started. Pt tolerating tube feeding at 20 cc via gtube with no residual. All safety measures met; will continue to monitor.
[2019-08-25] MEDS: Acetaminophen 650mg/20.3ml GT PRN (04:11)
[2019-08-25 05:04] LABS: BASOPHILS % (AUTO) 0.5 % (0.0-2.0); EOSINOPHILS % (AUTO) 1.9 % (0.0-3.0); HEMATOCRIT 36.4 % (42.0-52.0); HEMOGLOBIN 12.4 G/DL (14.2-18.0); LYMPHOCYTES % (AUTO) 14.7 % (20.0-45.0); MEAN CORPUSCULAR VOLUME 90 FL (80-99); MONOCYTES % (AUTO) 6.6 % (1.0-10.0); NEUTROPHILS % (AUTO) 76.3 % (45.0-75.0); PLATELET COUNT 184 K/UL (150-450); RED BLOOD COUNT 4.03 M/UL (4.70-6.10); RED CELL DISTRIBUTION WIDTH 12.2 % (11.6-14.8); WHITE BLOOD COUNT 4.8 K/UL (4.8-10.8)
[2019-08-25 05:23] LABS: ALANINE AMINOTRANSFERASE 55 U/L (12-78); ALBUMIN 1.7 G/DL (3.4-5.0); ALBUMIN/GLOBULIN RATIO 0.4 (1.0-2.7); ALKALINE PHOSPHATASE 251 U/L (46-116); ANION GAP 8 mmol/L (5-15); ASPARTATE AMINO TRANSFERASE 112 U/L (15-37); BILIRUBIN,TOTAL 0.9 MG/DL (0.2-1.0); BLOOD UREA NITROGEN 11 mg/dL (7-18); CALCIUM 7.9 MG/DL (8.5-10.1); CARBON DIOXIDE 28 MMOL/L (21-32); CHLORIDE 104 MMOL/L (98-107); CREATININE 0.7 MG/DL (0.55-1.30); POTASSIUM 3.3 MMOL/L (3.5-5.1); SODIUM 140 MMOL/L (136-145)
--- NOTE | 2019-08-25 05:30 | NUR ---
NURSE NOTES: Received patient from Jessica PAULSON. Vent settings as ordered. Patient currently on Propofol @ 3mcg/kg/min. IV sites patent and intact. tolerating feeds. Swartz cath draining by gravity. patient continues on droplet precautions. Bed in lowest position. side rails up, bed alarm on. No signs of distress noted. Will continue to monitor.
[2019-08-25] MEDS: Vancomycin 500mg/D5W 110ml IVPB SCH ×2 (06:43)
[2019-08-25] MEDS: Albuterol 90mcg Inhaler 8gm INH SCH ×3 (07:10→19:10)
--- NOTE | 2019-08-25 07:50 | NUR ---
HAND-OFF: Report given to Aj PAULSON using SBAR. Propofol continues @ 3 mcg/kg/min. No distress.
--- NOTE | 2019-08-25 08:45 | NUR ---
NURSE NOTES: Chest X-ray taken this morning with no distress from patient. repositioned and provided oral care. remains on ventilator with setting of AC 18, TV: 400, FIO2 at 40% with peep of 5. Currently is on propofol at 3mcg/min at a rate of 1.331ml/hr.
--- NOTE | 2019-08-25 09:30 | NUR ---
NURSE NOTES: repositioned and am medication administered. Swartz remains draining with no sediments noted. Et-tube remains at 25cm at the upper lip. will continue to monitor.
[2019-08-25] MEDS: Eliquis 2.5mg tablet ORAL SCH ×2 (09:50→17:07)
[2019-08-25] MEDS: levETIRAcetam 500mg/5ml Liquid GT SCH ×2 (09:50→20:41)
--- NOTE | 2019-08-25 10:15 | NUR ---
RD ASSESSMENT & RECOMMENDATIONS SEE CARE ACTIVITY FOR COMPLETE ASSESSMENT DAILY ESTIMATED NEEDS: Needs based on Critical care, Wounds/ 53kg abw 22-28 kcals/kg 2720-7485 total kcals 1.25-2 g protein/kg 66-106 g total protein 25-30 mL/kg 8626-9262 total fluid mLs NUTRITION DIAGNOSIS: * Swallowing difficulty R/T dysphagia as evidenced by PEG dep, s/p intubation, NPO at this time. * Increased kcal/prot needs R/T wound healing as evidenced by pt admitted w/ sacral and Lt heel wounds per photos, pending eval. CURRENT TF:Glucerna 1.2 @50ml/hr x22 hrs ENTERAL NUTRITION RECOMMENDATIONS: Glucerna 1.2 @ 50ml/hr x 22 hrs (hold 1 hr before and after Dilantin QD) to provide 1100ml, 1320kcal, 66g prot, 886ml free water * Maintain Glucerna 1.2 for carb control, BGs elevated. * Hold 1 hr before and after Dilantin med * HOB over 30 degrees/ without IVF, H20 flush of 150ml q 6 hrs ADDITIONAL RECOMMENDATIONS: * Per SNF record, ht is 60", wt is 149lbs (08/14/19) Rec calibrated bedscale wt * Rec NISS w/ TF: BGs elevated * Wound healing: add Vit C 500mg QD (F/up w/ WC eval) + Giancarlo 1pkt BID w/ TF * Monitor lytes, replete as needed (K low 3.3)
--- NOTE | 2019-08-25 10:43 | Diagnostic Imaging Report ---
EXAM: XR Chest, 1 View CLINICAL HISTORY: INTRA-OP TECHNIQUE: Frontal view of the chest. COMPARISON: No relevant prior studies available. FINDINGS: Redemonstrated endotracheal tube, appropriately positioned, the tip projecting above the darline. Right internal jugular central venous catheter tip is again in the upper right atrium. There is no pneumothorax. Bilateral pulmonary consolidation is again noted. This is most confluent in the left midlung and right upper lobe, similar appearance to prior. 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 Chronic rib deformities as well as skeletal degenerative changes. IMPRESSION: No significant interval change in extensive bilateral airspace infiltrates. Stable life-support devices and operative changes.
--- NOTE | 2019-08-25 11:07 | General Progress Note ---
Assessment/Plan Assessment/Plan: 83YO M with HTN, HLD, COPD, CAD, Seizure disorder presenting with cough and shortness of breath. In the ED, patient was found to be tachycardic (130's) and tachypnic (33) and febrile at 101.2. #Hypoxemic acute respiratory failure #Septic shock #Covid19 positive #transaminitis - likely 2/2 to above, downtrending -Appreciate ICU care -Pulm/CCM eval appreciated -Cont. contact plus droplet isolation. -cont Plaquenil, Vanco and Zosyn -Continuous classroom monitor. -Continue vent management per the ICU team, daily SBT -Daily labs. -ID and Pulm following #History of Seizure disorder: -cont Dilantin and Keppra -Neurology following #Hypokalemia -replaced -check Mg -ctm, replace PRN #HTN #HLD #CAD #Eliquis use I spent 75 minutes on this patient's case, and 35 mins was dedicated to critical care. Critical Care Services performed include: Telemetry Review Hemodynamic measurement interpretation Laboratory data review and interpretation Radiology image review and interpretation Ventilator setting review, management, and adjustment Interpretation of ABG's Discussion of patient's care with ICU team, ICU Nursing staff and/or consulting services Subjective Allergies: Coded Allergies: No Known Allergies (Unverified , 02/29/16) Subjective Follow up for acute hypoxic resp failure, septic shock, COVID-19 positive Patient remains intubated, no acute events overnight. Objective Last 24 Hour Vital Signs Date Time Temp Pulse Resp B/P (MAP) Pulse Ox O2 Delivery O2 Flow Rate FiO2 08/25/19 09:05 74 24 40 08/25/19 07:10 75 22 98 Mechanical Ventilator 40 75 22 40 08/25/19 07:00 75 21 105/55 (72) 97 08/25/19 07:00 23 105/55 Mechanical Ventilator 40 08/25/19 06:30 77 22 08/25/19 06:00 81 21 99/53 (68) 97 08/25/19 06:00 22 99/53 Mechanical Ventilator 40 08/25/19 05:19 87 24 40 08/25/19 05:00 23 97/52 Mechanical Ventilator 40 08/25/19 05:00 83 21 97/52 (67) 98 08/25/19 04:45 22 114/59 Mechanical Ventilator 40 08/25/19 04:41 99.9 08/25/19 04:30 21 111/58 Mechanical Ventilator 40 08/25/19 04:15 23 119/58 Mechanical Ventilator 40 08/25/19 04:00 40 08/25/19 04:00 20 116/55 Mechanical Ventilator 40 08/25/19 04:00 85 08/25/19 04:00 100.2 85 22 119/58 (78) 99 08/25/19 04:00 Mechanical Ventilator 08/25/19 03:00 102.4 85 21 114/54 (74) 97 08/25/19 02:10 93 22 40 08/25/19 02:00 85 21 110/57 (74) 98 08/25/19 01:00 87 20 107/51 (69) 98 08/25/19 00:00 88 08/25/19 00:00 Mechanical Ventilator 08/25/19 00:00 99.8 87 22 116/44 (68) 98 08/24/19 23:00 87 22 108/58 (75) 98 08/24/19 22:49 89 24 40 08/24/19 22:00 89 23 110/43 (65) 98 08/24/19 21:00 89 22 115/57 (76) 99 08/24/19 20:00 40 08/24/19 20:00 100.0 91 22 123/44 (70) 99 08/24/19 20:00 Mechanical Ventilator 08/24/19 19:14 92 26 98 Mechanical Ventilator 40 92 25 40 08/24/19 19:00 92 22 126/64 (84) 99 08/24/19 18:30 93 23 119/52 (74) 98 08/24/19 18:00 98 25 115/68 (84) 93 08/24/19 17:30 94 25 129/65 (86) 93 08/24/19 17:14 99 37 40 08/24/19 17:00 98 30 118/68 (85) 91 08/24/19 16:30 99.9 96 26 149/94 (112) 93 08/24/19 16:00 95 08/24/19 16:00 40 08/24/19 16:00 Mechanical Ventilator 08/24/19 16:00 96 38 149/94 (112) 93 08/24/19 15:30 96 41 131/71 (91) 93 08/24/19 15:20 84 25 40 08/24/19 15:00 95 37 139/122 (128) 95 08/24/19 14:30 83 23 130/81 (97) 98 08/24/19 14:00 85 23 120/66 (84) 98 08/24/19 13:30 86 23 122/64 (83) 97 08/24/19 13:20 89 25 98 Mechanical Ventilator 40 89 25 40 08/24/19 13:00 88 25 121/68 (85) 98 08/24/19 12:30 88 25 132/69 (90) 98 08/24/19 12:10 88 08/24/19 12:00 40 08/24/19 12:00 97.5 88 25 126/53 (77) 97 08/24/19 12:00 Mechanical Ventilator 08/24/19 11:30 91 25 124/59 (80) 96 08/24/19 11:15 89 26 40 Intake and Output 08/24/19 08/25/19 19:00 07:00 Intake Total 601.972 ml 388.993 ml Output Total 470 ml 460 ml Balance 131.972 ml -71.007 ml Free Water 50 ml 180 ml IV Total 301.972 ml 28.993 ml Tube Feeding 220 ml 180 ml Other 30 ml Output Urine Total 470 ml 460 ml # Bowel Movements 1 Laboratory Tests 08/25/19 04:30: White Blood Count 4.8, Red Blood Count 4.03L, Hemoglobin 12.4L, Hematocrit 36.4L , Mean Corpuscular Volume 90, Mean Corpuscular Hemoglobin 30.9, Mean Corpuscular Hemoglobin Concent 34.2, Red Cell Distribution Width 12.2, Platelet Count 184, Mean Platelet Volume 7.0, Neutrophils (%) (Auto) 76.3H, Lymphocytes ( %) (Auto) 14.7L, Monocytes (%) (Auto) 6.6, Eosinophils (%) (Auto) 1.9, Basophils (%) (Auto) 0.5, Sodium Level 140, Potassium Level 3.3L, Chloride Level 104, Carbon Dioxide Level 28, Anion Gap 8, Blood Urea Nitrogen 11, Creatinine 0.7, Estimat Glomerular Filtration Rate > 60, Glucose Level 163H, Calcium Level 7.9L, Total Bilirubin 0.9, Aspartate Amino Transf (AST/SGOT) 112H , Alanine Aminotransferase (ALT/SGPT) 55, Alkaline Phosphatase 251H, Total Protein 6.3L, Albumin 1.7L, Globulin 4.6, Albumin/Globulin Ratio 0.4L Height (Feet): 5 Height (Inches): 8.00 Weight (Pounds): 162 Objective General Appearance: other - Intubated Cardiovascular: normal rate, regular rhythm Respiratory/Chest: lungs clear, normal breath sounds Abdomen: non tender, soft Ext: no edema Liliana Leal M.D. Aug 25, 2019 11:07
--- NOTE | 2019-08-25 12:00 | NUR ---
NURSE NOTES: Dr. Leal updated on patient chemistry labs and placed order for potassium 40mEq to be given through G-tube. Patient is off propofol drip awaiting for weaning to begin.
--- NOTE | 2019-08-25 13:55 | NUR ---
NURSE NOTES: Dr. Nash updated on weaning trial, patient was unable to tolerate weaning this afternoon, ordered to have and ABG obtained to assess oxygenation with current ventilator setting. also [place] [address]/26/19 in the AM. wean patient Monday morning with pressure support of 12, if tolerate after 30min change PS to 10 and continue to ps of 8 in tolerate 30 min of initial starting weaning. if patient tolerates 30 in ps of 8 obtain abg. continue to hold propofol drip but have order pending.
[2019-08-25] MEDS ORDERED: NS 275ml ONE ×2 (14:11→14:33)
--- NOTE | 2019-08-25 15:48 | NUR ---
NURSE NOTES: Dr. Nash made aware of the ABG results obtained this afternoon, no further orders given at this time.
--- NOTE | 2019-08-25 17:11 | Pulmonolgy Critical Care Note ---
Critical Care - Asmt/Plan Problems: (1) Respiratory failure (2) Suspected 2019 novel coronavirus infection (3) History of CVA (cerebrovascular accident) (4) Acute encephalopathy (5) Multi-infarct dementia (6) Uncontrolled seizures Assessment/Plan: Continue ventilatory support, settings reviewed: TV 400 AC 14 PEEP 5 FiO2 40 LPV Daily SBT Monitor gas exchange STRONGLY CONSIDER HHN's in line with Vent Start SM 40 IV BID (D1) and taper Plaquenil (D5) Vanco/Zosyn per ID Daily CRP and ferritin D/W pharmacy RE: Tociluzumab - per pharmacist on national shortage and cannot get, will continue to follow up Remdesivir limited to trial, cannot get under compassionate care Monitor volumes and renal function Wean sedation to allow SBT F/U neuro recs, continue AED's Monitor LFT's TF's DVT Px: Eliquis FC, continue to discuss GOC Critical Care - Objective Last 24 Hour Vital Signs Date Time Temp Pulse Resp B/P (MAP) Pulse Ox O2 Delivery O2 Flow Rate FiO2 08/25/19 16:42 77 23 40 08/25/19 15:30 79 25 130/65 (86) 100 08/25/19 15:30 79 25 130/65 (86) 100 08/25/19 15:00 81 26 118/63 (81) 99 08/25/19 15:00 81 26 118/63 (81) 99 08/25/19 14:30 80 21 129/92 (104) 98 08/25/19 14:00 78 24 116/58 (77) 99 08/25/19 13:30 81 24 119/59 (79) 99 08/25/19 13:15 79 26 98 Mechanical Ventilator 40 79 26 40 08/25/19 13:00 79 23 102/51 (68) 99 08/25/19 12:30 78 23 119/58 (78) 98 08/25/19 12:11 75 21 40 08/25/19 12:00 40 08/25/19 12:00 Mechanical Ventilator 08/25/19 12:00 99.6 78 23 111/56 (74) 99 08/25/19 11:42 77 08/25/19 11:30 77 22 111/57 (75) 98 08/25/19 11:00 79 22 109/58 (75) 98 08/25/19 10:30 79 23 112/55 (74) 97 08/25/19 10:00 79 24 116/60 (78) 97 08/25/19 09:30 78 31 90/69 (76) 96 08/25/19 09:05 74 24 40 08/25/19 09:00 74 23 108/53 (71) 99 08/25/19 08:30 74 22 101/56 (71) 98 08/25/19 08:00 40 08/25/19 08:00 99.5 76 23 107/53 (71) 98 08/25/19 08:00 Mechanical Ventilator 08/25/19 08:00 77 08/25/19 07:30 76 23 105/55 (72) 97 08/25/19 07:10 75 22 98 Mechanical Ventilator 40 75 22 40 08/25/19 07:00 75 21 105/55 (72) 97 08/25/19 07:00 23 105/55 Mechanical Ventilator 40 08/25/19 06:30 77 22 08/25/19 06:00 81 21 99/53 (68) 97 08/25/19 06:00 22 99/53 Mechanical Ventilator 40 08/25/19 05:19 87 24 40 08/25/19 05:00 23 97/52 Mechanical Ventilator 40 08/25/19 05:00 83 21 97/52 (67) 98 08/25/19 04:45 22 114/59 Mechanical Ventilator 40 08/25/19 04:41 99.9 08/25/19 04:30 21 111/58 Mechanical Ventilator 40 08/25/19 04:15 23 119/58 Mechanical Ventilator 40 08/25/19 04:00 40 08/25/19 04:00 20 116/55 Mechanical Ventilator 40 08/25/19 04:00 85 08/25/19 04:00 100.2 85 22 119/58 (78) 99 08/25/19 04:00 Mechanical Ventilator 08/25/19 03:00 102.4 85 21 114/54 (74) 97 08/25/19 02:10 93 22 40 08/25/19 02:00 85 21 110/57 (74) 98 08/25/19 01:00 87 20 107/51 (69) 98 08/25/19 00:00 88 08/25/19 00:00 Mechanical Ventilator 08/25/19 00:00 99.8 87 22 116/44 (68) 98 08/24/19 23:00 87 22 108/58 (75) 98 08/24/19 22:49 89 24 40 08/24/19 22:00 89 23 110/43 (65) 98 08/24/19 21:00 89 22 115/57 (76) 99 08/24/19 20:00 40 08/24/19 20:00 100.0 91 22 123/44 (70) 99 08/24/19 20:00 Mechanical Ventilator 08/24/19 19:14 92 26 98 Mechanical Ventilator 40 92 25 40 08/24/19 19:00 92 22 126/64 (84) 99 08/24/19 18:30 93 23 119/52 (74) 98 08/24/19 18:00 98 25 115/68 (84) 93 08/24/19 17:30 94 25 129/65 (86) 93 08/24/19 17:14 99 37 40 Status: sedated - intubated Condition: critical HEENT: atraumatic, normocephalic Neck: other - R IJ Lungs: other - stable on vent Heart: HR/BP stable Critical Care - Subjective ROS Limited/Unobtainable: Yes ICU Day: 5 Intubation Day: 6 Interval Events: ETT cuff tore, ETT replaced by ERMD, failed SBT, O2 needs stable, off propofol gtt, not agitated tm 102.4 7.4/40/81/26/96 Condition: critical IV Access: central - R IJ EKG Rhythm: Sinus Tachycardia FI02: 40 Vent Support Breath Rate: 18 Vent Support Mode: AC Vent Tidal Volume: 400 Sputum Amount: Moderate PEEP: 5.0 PIP: 30 Secretions: mod clear Fluids: SLIV Drips: Off prop Tube Feeding Amount: 20 I&O: Intake and Output 08/24/19 08/25/19 19:00 07:00 Intake Total 601.972 ml 388.993 ml Output Total 470 ml 460 ml Balance 131.972 ml -71.007 ml Free Water 50 ml 180 ml IV Total 301.972 ml 28.993 ml Tube Feeding 220 ml 180 ml Other 30 ml Output Urine Total 470 ml 460 ml # Bowel Movements 1 Subjective: REYMUNDO CXR: Extensive b inf, ETT ET-Tube: 7.5 ET Position: 25 Labs: Laboratory Tests Test 08/25/19 04:30 08/25/19 13:37 08/25/19 14:04 White Blood Count 4.8 K/UL (4.8-10.8) Red Blood Count 4.03 M/UL (4.70-6.10) L Hemoglobin 12.4 G/DL (14.2-18.0) L Hematocrit 36.4 % (42.0-52.0) L Mean Corpuscular Volume 90 FL (80-99) Mean Corpuscular Hemoglobin 30.9 PG (27.0-31.0) Mean Corpuscular Hemoglobin Concent 34.2 G/DL (32.0-36.0) Red Cell Distribution Width 12.2 % (11.6-14.8) Platelet Count 184 K/UL (150-450) Mean Platelet Volume 7.0 FL (6.5-10.1) Neutrophils (%) (Auto) 76.3 % (45.0-75.0) H Lymphocytes (%) (Auto) 14.7 % (20.0-45.0) L Monocytes (%) (Auto) 6.6 % (1.0-10.0) Eosinophils (%) (Auto) 1.9 % (0.0-3.0) Basophils (%) (Auto) 0.5 % (0.0-2.0) Sodium Level 140 MMOL/L (136-145) Potassium Level 3.3 MMOL/L (3.5-5.1) L Chloride Level 104 MMOL/L (98-107) Carbon Dioxide Level 28 MMOL/L (21-32) Anion Gap 8 mmol/L (5-15) Blood Urea Nitrogen 11 mg/dL (7-18) Creatinine 0.7 MG/DL (0.55-1.30) Estimat Glomerular Filtration Rate > 60 mL/min (>60) Glucose Level 163 MG/DL (74-106) H Calcium Level 7.9 MG/DL (8.5-10.1) L Magnesium Level 2.1 MG/DL (1.8-2.4) Total Bilirubin 0.9 MG/DL (0.2-1.0) Aspartate Amino Transf (AST/SGOT) 112 U/L (15-37) H Alanine Aminotransferase (ALT/SGPT) 55 U/L (12-78) Alkaline Phosphatase 251 U/L (46-116) H Total Protein 6.3 G/DL (6.4-8.2) L Albumin 1.7 G/DL (3.4-5.0) L Globulin 4.6 g/dL Albumin/Globulin Ratio 0.4 (1.0-2.7) L Arterial Blood pH 7.379 (7.350-7.450) 7.442 (7.350-7.450) Arterial Blood Partial Pressure CO2 65.2 mmHg (35.0-45.0) *H 39.6 mmHg (35.0-45.0) Arterial Blood Partial Pressure O2 59.9 mmHg (75.0-100.0) L 81.6 mmHg (75.0-100.0) Arterial Blood HCO3 37.6 mmol/L (22.0-26.0) H 26.4 mmol/L (22.0-26.0) H Arterial Blood Oxygen Saturation 89.9 % (95-100) *L 96.0 % (95-100) Arterial Blood Base Excess 9.4 (-2-2) *H 2.2 (-2-2) H Jag Test Positive Positive Davdi Nash MD Aug 25, 2019 17:11
--- NOTE | 2019-08-25 17:52 | Infectious Diseases Prog Note ---
Assessment/Plan Assessment/Plan ASSESSMENT AND PLAN: 1. covid-19 virus infection, pna, sepsis, fevers, vent, respiratory failure - zosyn and vancomycin, s/p hydroxychloroquine - f/u on labs and chest x-ray - supportive care, ivf, vent - d/w RN - remains critical 2. Respiratory failure, on vent. 3. History of hyperlipidemia. 4. History of hypertension. 5. Atherosclerotic heart disease. 6. CAD. 7. COPD. 8. Dementia. 9. Nonverbal at baseline. 10. History of seizures. 11. No known drug allergies. 12. Social history negative. 13. Family history noncontributory. 14. MAR was noted. 15. Case discussed with RN. 16. Continue treatment per primary consultants. Subjective Constitutional: Denies: fever HEENT: Denies: congestion Respiratory: Denies: shortness of breath Cardiovascular: Denies: chest pain Gastrointestinal/Abdominal: Denies: nausea, vomiting, diarrhea Genitourinary: Reports: other - + verduzco Neurologic: Denies: headache Psychiatric: Reports: other - NA Skin: Denies: rash Hematologic: Denies: bleeding Musculoskeletal: Reports: other - NA Allergies: Coded Allergies: No Known Allergies (Unverified , 02/29/16) Objective Vital Signs Last 24 Hour Vital Signs Date Time Temp Pulse Resp B/P (MAP) Pulse Ox O2 Delivery O2 Flow Rate FiO2 08/25/19 16:42 77 23 40 08/25/19 15:30 79 25 130/65 (86) 100 08/25/19 15:30 79 25 130/65 (86) 100 08/25/19 15:00 81 26 118/63 (81) 99 08/25/19 15:00 81 26 118/63 (81) 99 08/25/19 14:30 80 21 129/92 (104) 98 08/25/19 14:00 78 24 116/58 (77) 99 08/25/19 13:30 81 24 119/59 (79) 99 08/25/19 13:15 79 26 98 Mechanical Ventilator 40 79 26 40 08/25/19 13:00 79 23 102/51 (68) 99 08/25/19 12:30 78 23 119/58 (78) 98 08/25/19 12:11 75 21 40 08/25/19 12:00 40 08/25/19 12:00 Mechanical Ventilator 08/25/19 12:00 99.6 78 23 111/56 (74) 99 08/25/19 11:42 77 08/25/19 11:30 77 22 111/57 (75) 98 08/25/19 11:00 79 22 109/58 (75) 98 08/25/19 10:30 79 23 112/55 (74) 97 08/25/19 10:00 79 24 116/60 (78) 97 08/25/19 09:30 78 31 90/69 (76) 96 08/25/19 09:05 74 24 40 08/25/19 09:00 74 23 108/53 (71) 99 08/25/19 08:30 74 22 101/56 (71) 98 08/25/19 08:00 40 08/25/19 08:00 99.5 76 23 107/53 (71) 98 08/25/19 08:00 Mechanical Ventilator 08/25/19 08:00 77 08/25/19 07:30 76 23 105/55 (72) 97 08/25/19 07:10 75 22 98 Mechanical Ventilator 40 75 22 40 08/25/19 07:00 75 21 105/55 (72) 97 08/25/19 07:00 23 105/55 Mechanical Ventilator 40 08/25/19 06:30 77 22 08/25/19 06:00 81 21 99/53 (68) 97 08/25/19 06:00 22 99/53 Mechanical Ventilator 40 08/25/19 05:19 87 24 40 08/25/19 05:00 23 97/52 Mechanical Ventilator 40 08/25/19 05:00 83 21 97/52 (67) 98 08/25/19 04:45 22 114/59 Mechanical Ventilator 40 08/25/19 04:41 99.9 08/25/19 04:30 21 111/58 Mechanical Ventilator 40 08/25/19 04:15 23 119/58 Mechanical Ventilator 40 08/25/19 04:00 40 08/25/19 04:00 20 116/55 Mechanical Ventilator 40 08/25/19 04:00 85 08/25/19 04:00 100.2 85 22 119/58 (78) 99 08/25/19 04:00 Mechanical Ventilator 08/25/19 03:00 102.4 85 21 114/54 (74) 97 08/25/19 02:10 93 22 40 08/25/19 02:00 85 21 110/57 (74) 98 08/25/19 01:00 87 20 107/51 (69) 98 08/25/19 00:00 88 08/25/19 00:00 Mechanical Ventilator 08/25/19 00:00 99.8 87 22 116/44 (68) 98 08/24/19 23:00 87 22 108/58 (75) 98 08/24/19 22:49 89 24 40 08/24/19 22:00 89 23 110/43 (65) 98 08/24/19 21:00 89 22 115/57 (76) 99 08/24/19 20:00 40 08/24/19 20:00 100.0 91 22 123/44 (70) 99 08/24/19 20:00 Mechanical Ventilator 08/24/19 19:14 92 26 98 Mechanical Ventilator 40 92 25 40 08/24/19 19:00 92 22 126/64 (84) 99 08/24/19 18:30 93 23 119/52 (74) 98 08/24/19 18:00 98 25 115/68 (84) 93 Height (Feet): 5 Height (Inches): 8.00 Weight (Pounds): 162 General Appearance: no acute distress HEENT: normocephalic, atraumatic, anicteric, mucous membranes moist Respiratory/Chest: crackles/rales, rhonchi - bilaterally Cardiovascular: normal rate, regular rhythm, no gallop/murmur, no JVD Abdomen: normal bowel sounds, soft, non tender, no organomegaly, non distended Genitourinary: other - + verduzco - urine slt cloudy Extremities: no cyanosis Skin: no rash Neurologic/Psychiatric: motor weakness, other - sedated, weak Lymphatic: no neck adenopathy Musculoskeletal: no effusion Objective Procedure: XRAY Chest 1v - 08/23/19 - Indication: Chest pain Technique: One view of the chest Comparison: 1 1/2 hours earlier Findings: Interim placement of a right jugular central venous catheter, tip which projects at the level of the high right atrium. No gross pneumothorax. Interim endotracheal intubation, endotracheal tube tip projecting approximately 6 cm above the darline. Right upper lobe infiltrate is unchanged. Left retrocardiac opacification and likely left pleural effusion are unchanged. Impression: Endotracheal intubation Satisfactory placement right jugular central venous catheter, no radiographically evident complication Other stable findings as described 08/25/19 - Procedure: XRAY Chest 1v EXAM: XR Chest, 1 View CLINICAL HISTORY: INTRA-OP TECHNIQUE: Frontal view of the chest. COMPARISON: No relevant prior studies available. FINDINGS: Redemonstrated endotracheal tube, appropriately positioned, the tip projecting above the darline. Right internal jugular central venous catheter tip is again in the upper right atrium. There is no pneumothorax. Bilateral pulmonary consolidation is again noted. This is most confluent in the left midlung and right upper lobe, similar appearance to prior. 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 Chronic rib deformities as well as skeletal degenerative changes. IMPRESSION: No significant interval change in extensive bilateral airspace infiltrates. Microbiology Date/Time Source Procedure Growth Status 08/19/19 17:30 Blood Blood Culture - Final NO GROWTH AFTER 5 DAYS Complete 08/19/19 18:30 Nasal Nares Right MRSA Culture - Final NO METHICILLIN RESISTANT STAPH AUREUS... Complete 08/19/19 18:30 Rectum - Final NO CARBAPENEM-RESISTANT ENTEROBACTERI... Complete Microbiology Date/Time Source Procedure Growth Status 08/19/19 17:30 Blood Blood Culture - Final NO GROWTH AFTER 5 DAYS Complete 08/19/19 18:30 Nasal Nares Right MRSA Culture - Final NO METHICILLIN RESISTANT STAPH AUREUS... Complete 08/19/19 18:30 Rectum - Final NO CARBAPENEM-RESISTANT ENTEROBACTERI... Complete Laboratory Tests Test 08/25/19 04:30 08/25/19 13:37 08/25/19 14:04 08/25/19 17:00 White Blood Count 4.8 K/UL (4.8-10.8) Red Blood Count 4.03 M/UL (4.70-6.10) L Hemoglobin 12.4 G/DL (14.2-18.0) L Hematocrit 36.4 % (42.0-52.0) L Mean Corpuscular Volume 90 FL (80-99) Mean Corpuscular Hemoglobin 30.9 PG (27.0-31.0) Mean Corpuscular Hemoglobin Concent 34.2 G/DL (32.0-36.0) Red Cell Distribution Width 12.2 % (11.6-14.8) Platelet Count 184 K/UL (150-450) Mean Platelet Volume 7.0 FL (6.5-10.1) Neutrophils (%) (Auto) 76.3 % (45.0-75.0) H Lymphocytes (%) (Auto) 14.7 % (20.0-45.0) L Monocytes (%) (Auto) 6.6 % (1.0-10.0) Eosinophils (%) (Auto) 1.9 % (0.0-3.0) Basophils (%) (Auto) 0.5 % (0.0-2.0) Sodium Level 140 MMOL/L (136-145) Potassium Level 3.3 MMOL/L (3.5-5.1) L Chloride Level 104 MMOL/L (98-107) Carbon Dioxide Level 28 MMOL/L (21-32) Anion Gap 8 mmol/L (5-15) Blood Urea Nitrogen 11 mg/dL (7-18) Creatinine 0.7 MG/DL (0.55-1.30) Estimat Glomerular Filtration Rate > 60 mL/min (>60) Glucose Level 163 MG/DL (74-106) H Calcium Level 7.9 MG/DL (8.5-10.1) L Magnesium Level 2.1 MG/DL (1.8-2.4) Total Bilirubin 0.9 MG/DL (0.2-1.0) Aspartate Amino Transf (AST/SGOT) 112 U/L (15-37) H Alanine Aminotransferase (ALT/SGPT) 55 U/L (12-78) Alkaline Phosphatase 251 U/L (46-116) H Total Protein 6.3 G/DL (6.4-8.2) L Albumin 1.7 G/DL (3.4-5.0) L Globulin 4.6 g/dL Albumin/Globulin Ratio 0.4 (1.0-2.7) L Arterial Blood pH 7.379 (7.350-7.450) 7.442 (7.350-7.450) Arterial Blood Partial Pressure CO2 65.2 mmHg (35.0-45.0) *H 39.6 mmHg (35.0-45.0) Arterial Blood Partial Pressure O2 59.9 mmHg (75.0-100.0) L 81.6 mmHg (75.0-100.0) Arterial Blood HCO3 37.6 mmol/L (22.0-26.0) H 26.4 mmol/L (22.0-26.0) H Arterial Blood Oxygen Saturation 89.9 % (95-100) *L 96.0 % (95-100) Arterial Blood Base Excess 9.4 (-2-2) *H 2.2 (-2-2) H Jag Test Positive Positive Vancomycin Level Trough Pending Current Medications Medications (Trade) Dose Ordered Sig/Vanessa Route PRN Reason Start Time Stop Time Status Last Admin Dose Admin Acetaminophen (Tylenol) 650 mg EVERY 6 HOURS PRN GT Temp >100.5 08/20/19 22:00 09/19/19 21:59 08/25/19 04:11 Albuterol Sulfate (Proventil MDI) 2 puff Q6HRT INH 08/22/19 13:00 11/20/19 12:59 08/25/19 13:14 Apixaban (Eliquis) 2.5 mg BID ORAL 08/20/19 18:00 11/18/19 17:59 08/25/19 17:07 Chlorhexidine Gluconate (Antonella-Hex 2%) 1 applic DAILY@2000 TOPIC 08/21/19 20:00 11/19/19 19:59 08/24/19 20:34 Ipratropium [place] (Atrovent Inh) 1 puffs Q6HRT INH 08/22/19 13:00 09/21/19 12:59 08/25/19 13:14 Levetiracetam (Keppra) 1,500 mg Q12HR GT 08/20/19 21:00 09/19/19 20:59 08/25/19 09:50 Methylprednisolone Sodium Succinate (Solu-MEDROL) 40 mg EVERY 12 HOURS IVP 08/25/19 21:00 11/23/19 20:59 Phenytoin (Dilantin) 250 mg DAILY GT 08/21/19 09:00 09/20/19 08:59 Future Hold Piperacillin Sod/ Tazobactam Sod 3.375 gm/Dextrose 100 ml @ 25 mls/hr EVERY 8 HOURS IVPB 08/23/19 22:00 08/28/19 21:59 08/25/19 14:21 Propofol 100 ml @ 0 mls/hr Q24H IV 08/25/19 04:00 08/27/19 03:59 08/25/19 04:00 Tamsulosin HCl (Flomax) 0.4 mg BEDTIME ORAL 08/20/19 21:00 09/19/19 20:59 08/24/19 20:34 Vancomycin HCl (Vanco rx to dose) 1 ea DAILY PRN MISC Per rx protocol 08/20/19 14:30 09/19/19 14:29 Vancomycin HCl 500 mg/Dextrose 110 ml @ 110 mls/hr Q12H IVPB 08/24/19 06:00 08/29/19 05:59 08/25/19 06:43 Gwen Velásquez MD Aug 25, 2019 17:52
--- NOTE | 2019-08-25 19:30 | NUR ---
NURSE NOTES: received patient from shane talamantes. patient ao1; follows commands. patient resting in bed with no acute distress. pt attached to monitor; vitals stable to baseline. ETT tube noted at 7.5 cm and 25cm at lipline; ac 18; tv 400; fio2 40%; peep 5. G tube flushed 100ml and patent; feeding running at 35ml/hr. aspiration precautions observed; head of bed raised >30 degree per protocol. verduzco intact and patent; draining well to gravity. right IJ TLC noted; free of signs of infection or debris; flushed and patent. restraints in place, no skin break down or pallor noted; pulses palpable distal to site. droplect precautions observed. all safety measures met; bed locked at lowest position; side rails raised x 3; bed alarm on zone 2; call light with in reach.
--- NOTE | 2019-08-25 19:33 | NUR ---
HAND-OFF: Report given to Austyn Puga RN.
--- NOTE | 2019-08-25 20:00 | NUR ---
NURSE NOTES: INCREASED FEEDING RATE TO 45 ML/HR; NO RESIDUAL NOTED; FLUSHED 100 ML; PATIENT TOLERATING WELL.
[2019-08-25] MEDS: Dyna-Hex 2% Top Sol 2oz TOPIC SCH (20:37)
[2019-08-25] MEDS: Vancomycin 750mg/NS 275ml IVPB SCH ×2 (20:39)
[2019-08-25] MEDS: Tamsulosin 0.4mg cap ORAL SCH (20:40)
[2019-08-25] MEDS: Solu-MEDROL 40mg Inj IVP SCH (20:40)
--- NOTE | 2019-08-25 20:46 | Neurology Progress Note ---
Interim History Interim History ROS Limited/Unobtainable: Yes Interim History intubates sedated Objective Physical Exam Last Vital Signs Date Time Temp Pulse Resp B/P (MAP) Pulse Ox O2 Delivery O2 Flow Rate FiO2 08/25/19 19:10 89 21 99 Mechanical Ventilator 40 91 24 40 08/25/19 19:00 135/64 (87) 08/25/19 16:00 99.6 08/20/19 20:16 2.0 Laboratory Tests Test 08/25/19 04:30 08/25/19 13:37 08/25/19 14:04 08/25/19 17:00 White Blood Count 4.8 K/UL (4.8-10.8) Red Blood Count 4.03 M/UL (4.70-6.10) L Hemoglobin 12.4 G/DL (14.2-18.0) L Hematocrit 36.4 % (42.0-52.0) L Mean Corpuscular Volume 90 FL (80-99) Mean Corpuscular Hemoglobin 30.9 PG (27.0-31.0) Mean Corpuscular Hemoglobin Concent 34.2 G/DL (32.0-36.0) Red Cell Distribution Width 12.2 % (11.6-14.8) Platelet Count 184 K/UL (150-450) Mean Platelet Volume 7.0 FL (6.5-10.1) Neutrophils (%) (Auto) 76.3 % (45.0-75.0) H Lymphocytes (%) (Auto) 14.7 % (20.0-45.0) L Monocytes (%) (Auto) 6.6 % (1.0-10.0) Eosinophils (%) (Auto) 1.9 % (0.0-3.0) Basophils (%) (Auto) 0.5 % (0.0-2.0) Sodium Level 140 MMOL/L (136-145) Potassium Level 3.3 MMOL/L (3.5-5.1) L Chloride Level 104 MMOL/L (98-107) Carbon Dioxide Level 28 MMOL/L (21-32) Anion Gap 8 mmol/L (5-15) Blood Urea Nitrogen 11 mg/dL (7-18) Creatinine 0.7 MG/DL (0.55-1.30) Estimat Glomerular Filtration Rate > 60 mL/min (>60) Glucose Level 163 MG/DL (74-106) H Calcium Level 7.9 MG/DL (8.5-10.1) L Magnesium Level 2.1 MG/DL (1.8-2.4) Total Bilirubin 0.9 MG/DL (0.2-1.0) Aspartate Amino Transf (AST/SGOT) 112 U/L (15-37) H Alanine Aminotransferase (ALT/SGPT) 55 U/L (12-78) Alkaline Phosphatase 251 U/L (46-116) H Total Protein 6.3 G/DL (6.4-8.2) L Albumin 1.7 G/DL (3.4-5.0) L Globulin 4.6 g/dL Albumin/Globulin Ratio 0.4 (1.0-2.7) L Arterial Blood pH 7.379 (7.350-7.450) 7.442 (7.350-7.450) Arterial Blood Partial Pressure CO2 65.2 mmHg (35.0-45.0) *H 39.6 mmHg (35.0-45.0) Arterial Blood Partial Pressure O2 59.9 mmHg (75.0-100.0) L 81.6 mmHg (75.0-100.0) Arterial Blood HCO3 37.6 mmol/L (22.0-26.0) H 26.4 mmol/L (22.0-26.0) H Arterial Blood Oxygen Saturation 89.9 % (95-100) *L 96.0 % (95-100) Arterial Blood Base Excess 9.4 (-2-2) *H 2.2 (-2-2) H Jag Test Positive Positive Vancomycin Level Trough 10.7 ug/mL (5.0-12.0) Neurologic Exam Objective intubated, sedated, minimal withdraw cc 35 min Impression/Recommendations Problems: (1) Suspected 2019 novel coronavirus infection (2) Multi-infarct dementia (3) Uncontrolled seizures (4) History of CVA (cerebrovascular accident) (5) Acute encephalopathy (6) Aspiration pneumonia (7) Respiratory failure Diagnostic Impression icu level of care cont keevelio and macario Monitor for seizures covid ro started atb wean off sedation when able Ivan Rose MD Aug 25, 2019 20:46
--- NOTE | 2019-08-25 22:00 | NUR ---
NURSE NOTES: INCREASED FEEDING RATE TO 50 ML/HR; NO RESIDUAL NOTED; FLUSHED 100 ML; PATIENT TOLERATING WELL.
--- NOTE | 2019-08-25 22:00 | NUR ---
NURSE NOTES: patient asleep with no acute distress. vitals stable to baseline. pt tolerating vent setting; setting remain unchanged. patient meets release restraint criteria; released restraints. patient free of incident. will continue to monitor closely.
[2019-08-26] VITALS (34 sets, daily range): BP systolic 113–204; BP diastolic 53–115
--- NOTE | 2019-08-26 | NUR ---
NURSE NOTES: PATIENT NOTED ATTEMPTING TO REMOVE DEVICE. NONVIOLENT RESTRAINT ORDER RECEIVED; NOTED AND CARRIED OUT. PATIENT EXTREMITIES FREE FROM INJURY OR SKIN BREAKDOWN. PATIENT RESTING IN BED WITH NO ACUTE DISTRESS. VITALS STABLE. SAFETY MEASURES MET. WILL CONTINUE TO MONITOR.
[2019-08-26] MEDS: Ipratropium Bromide Inhaler INH SCH ×4 (01:01→20:08)
[2019-08-26] MEDS: Albuterol 90mcg Inhaler 8gm INH SCH ×4 (01:01→20:08)
--- NOTE | 2019-08-26 02:00 | NUR ---
NURSE NOTES: patient sleeping in bed with no signs of distress. vitals stable to baseline. will continue to monitor.
--- NOTE | 2019-08-26 04:00 | NUR ---
NURSE NOTES: am labs drawn ; sent down to lab. pt presented with bm; changed linen and gown. provided am care. patient tolerated well. all safety measures met. iv infusion initiated as prescribed. will continue to monitor.
[2019-08-26 05:48] LABS: BASOPHILS % (AUTO) 0.2 % (0.0-2.0); EOSINOPHILS % (AUTO) 0.3 % (0.0-3.0); HEMOGLOBIN 12.2 G/DL (14.2-18.0); LYMPHOCYTES % (AUTO) 14.4 % (20.0-45.0); MEAN CORPUSCULAR VOLUME 90 FL (80-99); MONOCYTES % (AUTO) 5.7 % (1.0-10.0); NEUTROPHILS % (AUTO) 79.5 % (45.0-75.0); PLATELET COUNT 216 K/UL (150-450); RED CELL DISTRIBUTION WIDTH 12.3 % (11.6-14.8)
--- NOTE | 2019-08-26 06:00 | NUR ---
NURSE NOTES: PATIENT SLEEPING IN BED WITH NO ACUTE DISTRESS. VITALS STABLE BASELINE.
[2019-08-26 06:04] LABS: ALANINE AMINOTRANSFERASE 43 U/L (12-78); ALBUMIN 1.5 G/DL (3.4-5.0); ALBUMIN/GLOBULIN RATIO 0.3 (1.0-2.7); ALKALINE PHOSPHATASE 235 U/L (46-116); ANION GAP 5 mmol/L (5-15); ASPARTATE AMINO TRANSFERASE 83 U/L (15-37); BILIRUBIN,TOTAL 0.6 MG/DL (0.2-1.0); BLOOD UREA NITROGEN 12 mg/dL (7-18); CALCIUM 7.7 MG/DL (8.5-10.1); CARBON DIOXIDE 28 MMOL/L (21-32); CHLORIDE 107 MMOL/L (98-107); CREATININE 0.9 MG/DL (0.55-1.30); POTASSIUM 3.6 MMOL/L (3.5-5.1); SODIUM 140 MMOL/L (136-145); TRIGLYCERIDES 118 MG/DL (30-150)
--- NOTE | 2019-08-26 07:13 | NUR ---
HAND-OFF: Report given to RAFI PAULSON.
--- NOTE | 2019-08-26 07:14 | NUR ---
NURSE NOTES: Received patient from patient Austyn Puga RN. Patient is awake, opens eyes spontaneously. Receiving oxygen via ET tube 7.5 25cm at the lip lines, vent settings: AC 18, TV 400, FiO2 40%, PEEP 5. Sinus Tachycardia on the heart monitor, HR 101. G-tube is intact and receiving Glucerna 1.2 at 50cc/hr. Swartz catheter is intact and draining. Right IJ TLC is intact and asymptomatic. Bed is locked, placed in lowest position, side rails up x3, bed alarm on, call light within reach. Will continue to monitor.
[2019-08-26] MEDS: Vancomycin 750mg/NS 275ml IVPB SCH ×4 (08:58→20:28)
[2019-08-26] MEDS: Solu-MEDROL 40mg Inj IVP SCH ×2 (08:58→21:13)
[2019-08-26] MEDS: Eliquis 2.5mg tablet ORAL SCH (08:59)
[2019-08-26] MEDS: levETIRAcetam 500mg/5ml Liquid GT SCH ×2 (08:59→21:14)
--- NOTE | 2019-08-26 09:00 | NUR ---
NURSE NOTES: Medications given as prescribed, patient tolerated well, no adverse reactions. Patient turned and repositioned, oral care given, endotracheal suction done, small amount of clear thin sputum removed. Patient showing no signs of distress. Will continue to monitor.
--- NOTE | 2019-08-26 09:49 | Diagnostic Imaging Report ---
Indication: Shortness of breath Technique: One view of the chest Comparison: none Findings: Bilateral diffuse infiltrates appears slightly more extensive than on the previous study. Stable satisfactory positions of endotracheal tube and right jugular central venous catheter. Gastrostomy is demonstrated. Impression: Over one day, interim slight worsening of bilateral infiltrates Other stable findings as described
--- NOTE | 2019-08-26 10:13 | General Progress Note ---
Assessment/Plan Assessment/Plan: 83YO M with HTN, HLD, COPD, CAD, Seizure disorder presenting with cough and shortness of breath. In the ED, patient was found to be tachycardic (130's) and tachypnic (33) and febrile at 101.2. #Hypoxemic acute respiratory failure #Septic shock #Covid19 positive #transaminitis - likely 2/2 to above, downtrending -Appreciate ICU care -Pulm/CCM eval appreciated -Cont. contact plus droplet isolation. 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 -Continue vent management per the ICU team, daily SBT -Daily labs. -s/p Plaquenil -cont. abx per ID, Zosyn and zyvox -ID and Pulm following #History of Seizure disorder: -cont Dilantin and Keppra -Neurology following #Hypokalemia -replaced -check Mg -ctm, replace PRN #HTN #HLD #CAD #Eliquis use -started pt on MTP 25 BID, hydralazine PRN for SBP >180 -Cardio consulted, recs appreciated I spent 72 minutes on this patient's case, and 35 mins was dedicated to critical care. Critical Care Services performed include: Telemetry Review Hemodynamic measurement interpretation Laboratory data review and interpretation Ventilator setting review, management, and adjustment Discussion of patient's care with ICU team, ICU Nursing staff and/or consulting services Subjective ROS Limited/Unobtainable: Yes - intubated Allergies: Coded Allergies: No Known Allergies (Unverified , 02/29/16) Subjective Follow up for acute hypoxic resp failure, septic shock, COVID-19 positive Patient remains intubated. Off propofol x1 day, appears more agitated today. Objective Last 24 Hour Vital Signs Date Time Temp Pulse Resp B/P (MAP) Pulse Ox O2 Delivery O2 Flow Rate FiO2 08/26/19 09:09 97 30 40 08/26/19 09:00 96 30 130/64 (86) 95 08/26/19 08:03 96 08/26/19 08:00 40 08/26/19 08:00 Mechanical Ventilator 08/26/19 08:00 99.6 97 31 127/66 (86) 96 08/26/19 07:30 95 30 142/69 (93) 96 08/26/19 07:00 92 28 99 Mechanical Ventilator 40 95 29 40 08/26/19 07:00 91 28 132/61 (84) 97 08/26/19 06:30 92 31 08/26/19 06:00 92 29 130/62 (84) 96 08/26/19 05:00 91 30 132/65 (87) 96 08/26/19 04:00 91 08/26/19 04:00 40 08/26/19 04:00 Mechanical Ventilator 08/26/19 04:00 90 26 128/67 (87) 96 08/26/19 03:20 89 22 40 08/26/19 03:00 90 26 117/66 (83) 96 08/26/19 02:00 90 26 123/64 (83) 94 08/26/19 01:02 81 21 99 Mechanical Ventilator 40 82 22 40 08/26/19 01:00 91 27 118/66 (83) 94 08/26/19 00:00 40 08/26/19 00:00 Mechanical Ventilator 08/26/19 00:00 91 25 122/65 (84) 95 08/26/19 00:00 93 08/25/19 23:00 80 28 127/68 (87) 100 08/25/19 22:35 85 22 40 08/25/19 22:00 79 31 136/97 (110) 100 08/25/19 21:00 78 26 158/50 (86) 96 08/25/19 20:00 90 08/25/19 20:00 40 08/25/19 20:00 Mechanical Ventilator 08/25/19 20:00 100.1 79 27 138/58 (84) 99 08/25/19 19:10 89 21 99 Mechanical Ventilator 40 91 24 40 08/25/19 19:00 89 22 135/64 (87) 100 08/25/19 18:00 85 28 127/59 (81) 98 08/25/19 17:00 84 25 132/66 (88) 99 08/25/19 16:42 77 23 40 08/25/19 16:00 Mechanical Ventilator 08/25/19 16:00 40 08/25/19 16:00 81 08/25/19 16:00 99.6 83 25 130/70 (90) 99 08/25/19 15:30 79 25 130/65 (86) 100 08/25/19 15:30 79 25 130/65 (86) 100 08/25/19 15:00 81 26 118/63 (81) 99 08/25/19 15:00 81 26 118/63 (81) 99 08/25/19 14:30 80 21 129/92 (104) 98 08/25/19 14:00 78 24 116/58 (77) 99 08/25/19 13:30 81 24 119/59 (79) 99 08/25/19 13:15 79 26 98 Mechanical Ventilator 40 79 26 40 08/25/19 13:00 79 23 102/51 (68) 99 08/25/19 12:30 78 23 119/58 (78) 98 08/25/19 12:11 75 21 40 08/25/19 12:00 40 08/25/19 12:00 Mechanical Ventilator 08/25/19 12:00 99.6 78 23 111/56 (74) 99 08/25/19 11:42 77 08/25/19 11:30 77 22 111/57 (75) 98 08/25/19 11:00 79 22 109/58 (75) 98 08/25/19 10:30 79 23 112/55 (74) 97 Intake and Output 08/25/19 08/26/19 19:00 07:00 Intake Total 603.993 ml 1215 ml Output Total 575 ml 490 ml Balance 28.993 ml 725 ml Free Water 200 ml IV Total 288.993 ml 425 ml Tube Feeding 315 ml 590 ml Output Urine Total 575 ml 490 ml # Bowel Movements 2 1 Laboratory Tests 08/25/19 13:37: Arterial Blood pH 7.379, Arterial Blood Partial Pressure CO2 65.2*H, Arterial Blood Partial Pressure O2 59.9L, Arterial Blood HCO3 37.6H, Arterial Blood Oxygen Saturation 89.9*L, Arterial Blood Base Excess 9.4*H, Jag Test Positive 08/25/19 14:04: Arterial Blood pH 7.442, Arterial Blood Partial Pressure CO2 39.6, Arterial Blood Partial Pressure O2 81.6, Arterial Blood HCO3 26.4H, Arterial Blood Oxygen Saturation 96.0, Arterial Blood Base Excess 2.2H, Jag Test Positive 08/25/19 17:00: Vancomycin Level Trough 10.7 08/26/19 03:50: White Blood Count 6.0, Red Blood Count 3.90L, Hemoglobin 12.2L, Hematocrit 35.0L , Mean Corpuscular Volume 90, Mean Corpuscular Hemoglobin 31.3H, Mean Corpuscular Hemoglobin Concent 34.8, Red Cell Distribution Width 12.3, Platelet Count 216, Mean Platelet Volume 6.9, Neutrophils (%) (Auto) 79.5H, Lymphocytes ( %) (Auto) 14.4L, Monocytes (%) (Auto) 5.7, Eosinophils (%) (Auto) 0.3, Basophils (%) (Auto) 0.2, Sodium Level 140, Potassium Level 3.6, Chloride Level 107, Carbon Dioxide Level 28, Anion Gap 5, Blood Urea Nitrogen 12, Creatinine 0.9, Estimat Glomerular Filtration Rate > 60, Glucose Level 177H, Calcium Level 7.7L, Total Bilirubin 0.6, Aspartate Amino Transf (AST/SGOT) 83H, Alanine Aminotransferase (ALT/SGPT) 43, Alkaline Phosphatase 235H, Total Protein 6.0L, Albumin 1.5L, Globulin 4.5, Albumin/Globulin Ratio 0.3L, Triglycerides Level 118 08/26/19 04:00: Arterial Blood pH 7.455H, Arterial Blood Partial Pressure CO2 37.3, Arterial Blood Partial Pressure O2 71.7L, Arterial Blood HCO3 25.6, Arterial Blood Oxygen Saturation 94.7L, Arterial Blood Base Excess 1.9, Jag Test Positive Height (Feet): 5 Height (Inches): 8.00 Weight (Pounds): 163 Objective General Appearance: Intubated Cardiovascular: sinus tachycardia Respiratory/Chest: symmetrical rise in lungs b/l, intubated Abdomen: non tender, soft Ext: no edema Liliana Leal M.D. Aug 26, 2019 10:13
--- NOTE | 2019-08-26 11:20 | NUR ---
NURSE NOTES: Patient's blood pressure at 11:00am was 174/115, repositioned patient and changed blood pressure cuff location, on reassessment blood pressure read 204/113 at 11:10am. Dr. Mayorga made aware. Awaiting call back. Addendum: 08/26/19 at 1156 by Daniela Ashby RN NURSE NOTES: Patient's blood pressure at 11:00am was 174/115, repositioned patient and changed blood pressure cuff location, on reassessment blood pressure read 204/113 at 11:10am. will be made aware.
--- NOTE | 2019-08-26 11:56 | NUR ---
NURSE NOTES: Dr. Leal seen and assessed patient, orders received.
[2019-08-26] MEDS ORDERED: LORazepam Inj 2mg/ml 1ml IV SCH (12:00)
--- NOTE | 2019-08-26 12:30 | NUR ---
NURSE NOTES: Patient's temperature was 102.4 at 1200, gave patient prescribed PRN Tylenol 650mg via G-tube. Flushed 200cc of ice cold water through G-tube and placed Ice packs on patient. On reassessment Temperature read 100.8. Will continue to monitor.
--- NOTE | 2019-08-26 12:36 | Pulmonolgy Critical Care Note ---
Critical Care - Asmt/Plan Problems: (1) Respiratory failure (2) Suspected 2019 novel coronavirus infection (3) History of CVA (cerebrovascular accident) (4) Acute encephalopathy (5) Multi-infarct dementia (6) Uncontrolled seizures Assessment/Plan: Continue ventilatory support, settings reviewed: Dec TV to 350 AC 14 PEEP 5 FiO2 40 LPV Daily SBT ---> D/W RN and RT, will try CPAP PS 12 and dec by 2 every 30 min Monitor gas exchange STRONGLY CONSIDER HHN's in line with Vent SM 40 IV BID (D2) and taper Completed 5 days of Plaquenil Vanco/Zosyn per ID Daily CRP and ferritin D/W pharmacy RE: Tociluzumab - per pharmacist on national shortage and cannot get, will continue to follow up Remdesivir limited to trial, cannot get under compassionate care Monitor volumes and renal function Wean sedation to allow SBT: D/W RN will D/C Prop gtt, start Fent gtt for RASS - 2 with PRN Versed F/U neuro recs, continue AED's Monitor LFT's TF's DVT Px: Eliquis FC, continue to discuss GOC Prophylaxis: other - Eliquis Disposition: keep in ICU Time Spent (Minutes): 40 Notes Reviewed: manager cardiac cath, ID, neuro Discussed with: nurses, consultants Critical Care - Objective Last 24 Hour Vital Signs Date Time Temp Pulse Resp B/P (MAP) Pulse Ox O2 Delivery O2 Flow Rate FiO2 08/26/19 12:09 114 154/77 08/26/19 11:10 127 44 204/113 (143) 100 08/26/19 11:09 125 40 40 08/26/19 11:00 118 45 174/115 (134) 96 08/26/19 10:00 96 28 137/69 (91) 95 08/26/19 09:09 97 30 40 08/26/19 09:00 96 30 130/64 (86) 95 08/26/19 08:03 96 08/26/19 08:00 40 08/26/19 08:00 Mechanical Ventilator 08/26/19 08:00 99.6 97 31 127/66 (86) 96 08/26/19 07:30 95 30 142/69 (93) 96 08/26/19 07:00 92 28 99 Mechanical Ventilator 40 95 29 40 08/26/19 07:00 91 28 132/61 (84) 97 08/26/19 06:30 92 31 08/26/19 06:00 92 29 130/62 (84) 96 08/26/19 05:00 91 30 132/65 (87) 96 08/26/19 04:00 91 08/26/19 04:00 40 08/26/19 04:00 Mechanical Ventilator 08/26/19 04:00 90 26 128/67 (87) 96 08/26/19 03:20 89 22 40 08/26/19 03:00 90 26 117/66 (83) 96 08/26/19 02:00 90 26 123/64 (83) 94 08/26/19 01:02 81 21 99 Mechanical Ventilator 40 82 22 40 08/26/19 01:00 91 27 118/66 (83) 94 08/26/19 00:00 40 08/26/19 00:00 Mechanical Ventilator 08/26/19 00:00 91 25 122/65 (84) 95 08/26/19 00:00 93 08/25/19 23:00 80 28 127/68 (87) 100 08/25/19 22:35 85 22 40 08/25/19 22:00 79 31 136/97 (110) 100 08/25/19 21:00 78 26 158/50 (86) 96 08/25/19 20:00 90 08/25/19 20:00 40 08/25/19 20:00 Mechanical Ventilator 08/25/19 20:00 100.1 79 27 138/58 (84) 99 08/25/19 19:10 89 21 99 Mechanical Ventilator 40 91 24 40 08/25/19 19:00 89 22 135/64 (87) 100 08/25/19 18:00 85 28 127/59 (81) 98 08/25/19 17:00 84 25 132/66 (88) 99 08/25/19 16:42 77 23 40 08/25/19 16:00 Mechanical Ventilator 08/25/19 16:00 40 08/25/19 16:00 81 08/25/19 16:00 99.6 83 25 130/70 (90) 99 08/25/19 15:30 79 25 130/65 (86) 100 08/25/19 15:30 79 25 130/65 (86) 100 08/25/19 15:00 81 26 118/63 (81) 99 08/25/19 15:00 81 26 118/63 (81) 99 08/25/19 14:30 80 21 129/92 (104) 98 08/25/19 14:00 78 24 116/58 (77) 99 08/25/19 13:30 81 24 119/59 (79) 99 08/25/19 13:15 79 26 98 Mechanical Ventilator 40 79 26 40 08/25/19 13:00 79 23 102/51 (68) 99 Status: sedated - intubated Condition: critical HEENT: other - ETT Heart: HR/BP unstable Blood Sugars: BS controlled Critical Care - Subjective ROS Limited/Unobtainable: Yes ICU Day: 6 Intubation Day: 7 Interval Events: Off propofol, BP elevated, was agitated SBT not done FiO2 40/5 Condition: critical IV Access: central - R IJ EKG Rhythm: Sinus Tachycardia FI02: 40 Vent Support Breath Rate: 18 Vent Support Mode: AC Vent Tidal Volume: 400 Sputum Amount: Small PEEP: 5.0 PIP: 39 Secretions: small Fluids: SLIV Drips: Off Tube Feeding Amount: 50 I&O: Intake and Output 08/25/19 08/26/19 19:00 07:00 Intake Total 603.993 ml 1215 ml Output Total 575 ml 490 ml Balance 28.993 ml 725 ml Free Water 200 ml IV Total 288.993 ml 425 ml Tube Feeding 315 ml 590 ml Output Urine Total 575 ml 490 ml # Bowel Movements 2 1 Subjective: REYMUNDO ET-Tube: 7.5 ET Position: 25 Labs: Laboratory Tests Test 08/25/19 13:37 08/25/19 14:04 08/25/19 17:00 08/26/19 03:50 Arterial Blood pH 7.379 (7.350-7.450) 7.442 (7.350-7.450) Arterial Blood Partial Pressure CO2 65.2 mmHg (35.0-45.0) *H 39.6 mmHg (35.0-45.0) Arterial Blood Partial Pressure O2 59.9 mmHg (75.0-100.0) L 81.6 mmHg (75.0-100.0) Arterial Blood HCO3 37.6 mmol/L (22.0-26.0) H 26.4 mmol/L (22.0-26.0) H Arterial Blood Oxygen Saturation 89.9 % (95-100) *L 96.0 % (95-100) Arterial Blood Base Excess 9.4 (-2-2) *H 2.2 (-2-2) H Jag Test Positive Positive Vancomycin Level Trough 10.7 ug/mL (5.0-12.0) White Blood Count 6.0 K/UL (4.8-10.8) Red Blood Count 3.90 M/UL (4.70-6.10) L Hemoglobin 12.2 G/DL (14.2-18.0) L Hematocrit 35.0 % (42.0-52.0) L Mean Corpuscular Volume 90 FL (80-99) Mean Corpuscular Hemoglobin 31.3 PG (27.0-31.0) H Mean Corpuscular Hemoglobin Concent 34.8 G/DL (32.0-36.0) Red Cell Distribution Width 12.3 % (11.6-14.8) Platelet Count 216 K/UL (150-450) Mean Platelet Volume 6.9 FL (6.5-10.1) Neutrophils (%) (Auto) 79.5 % (45.0-75.0) H Lymphocytes (%) (Auto) 14.4 % (20.0-45.0) L Monocytes (%) (Auto) 5.7 % (1.0-10.0) Eosinophils (%) (Auto) 0.3 % (0.0-3.0) Basophils (%) (Auto) 0.2 % (0.0-2.0) Sodium Level 140 MMOL/L (136-145) Potassium Level 3.6 MMOL/L (3.5-5.1) Chloride Level 107 MMOL/L (98-107) Carbon Dioxide Level 28 MMOL/L (21-32) Anion Gap 5 mmol/L (5-15) Blood Urea Nitrogen 12 mg/dL (7-18) Creatinine 0.9 MG/DL (0.55-1.30) Estimat Glomerular Filtration Rate > 60 mL/min (>60) Glucose Level 177 MG/DL (74-106) H Calcium Level 7.7 MG/DL (8.5-10.1) L Total Bilirubin 0.6 MG/DL (0.2-1.0) Aspartate Amino Transf (AST/SGOT) 83 U/L (15-37) H Alanine Aminotransferase (ALT/SGPT) 43 U/L (12-78) Alkaline Phosphatase 235 U/L (46-116) H Total Protein 6.0 G/DL (6.4-8.2) L Albumin 1.5 G/DL (3.4-5.0) L Globulin 4.5 g/dL Albumin/Globulin Ratio 0.3 (1.0-2.7) L Triglycerides Level 118 MG/DL (30-150) Test 08/26/19 04:00 Arterial Blood pH 7.455 (7.350-7.450) Arterial Blood Partial Pressure CO2 37.3 mmHg (35.0-45.0) Arterial Blood Partial Pressure O2 71.7 mmHg (75.0-100.0) L Arterial Blood HCO3 25.6 mmol/L (22.0-26.0) Arterial Blood Oxygen Saturation 94.7 % (95-100) L Arterial Blood Base Excess 1.9 (-2-2) Jag Test Positive David Nash MD Aug 26, 2019 12:36
[2019-08-26] MEDS ORDERED: fentaNYL Citrate 2,500 MCG in NS 200 ML IV SCH (12:45)
[2019-08-26] MEDS: fentaNYL Citrate 1000 MCG in NS 100ml IV SCH (13:47)
--- NOTE | 2019-08-26 14:22 | NUR ---
RADIOLOGY DEPT. CHEST X-RAY DONE.-P.DYE
--- NOTE | 2019-08-26 14:48 | Cardiac Electrophysiology PN ---
Subjective Subjective [id number] Objective Last 24 Hour Vital Signs Date Time Temp Pulse Resp B/P (MAP) Pulse Ox O2 Delivery O2 Flow Rate FiO2 08/26/19 13:47 29 Mechanical Ventilator 40 08/26/19 12:09 114 154/77 08/26/19 12:00 Mechanical Ventilator 08/26/19 12:00 40 08/26/19 12:00 102.4 117 29 154/77 (102) 94 08/26/19 11:10 127 44 204/113 (143) 100 08/26/19 11:09 125 40 40 08/26/19 11:00 118 45 174/115 (134) 96 08/26/19 10:00 96 28 137/69 (91) 95 08/26/19 09:09 97 30 40 08/26/19 09:00 96 30 130/64 (86) 95 08/26/19 08:03 96 08/26/19 08:00 40 08/26/19 08:00 Mechanical Ventilator 08/26/19 08:00 99.6 97 31 127/66 (86) 96 08/26/19 07:30 95 30 142/69 (93) 96 08/26/19 07:00 92 28 99 Mechanical Ventilator 40 95 29 40 08/26/19 07:00 91 28 132/61 (84) 97 08/26/19 06:30 92 31 08/26/19 06:00 92 29 130/62 (84) 96 08/26/19 05:00 91 30 132/65 (87) 96 08/26/19 04:00 91 08/26/19 04:00 40 08/26/19 04:00 Mechanical Ventilator 08/26/19 04:00 90 26 128/67 (87) 96 08/26/19 03:20 89 22 40 08/26/19 03:00 90 26 117/66 (83) 96 08/26/19 02:00 90 26 123/64 (83) 94 08/26/19 01:02 81 21 99 Mechanical Ventilator 40 82 22 40 08/26/19 01:00 91 27 118/66 (83) 94 08/26/19 00:00 40 08/26/19 00:00 Mechanical Ventilator 08/26/19 00:00 91 25 122/65 (84) 95 08/26/19 00:00 93 08/25/19 23:00 80 28 127/68 (87) 100 08/25/19 22:35 85 22 40 08/25/19 22:00 79 31 136/97 (110) 100 08/25/19 21:00 78 26 158/50 (86) 96 08/25/19 20:00 90 08/25/19 20:00 40 08/25/19 20:00 Mechanical Ventilator 08/25/19 20:00 100.1 79 27 138/58 (84) 99 08/25/19 19:10 89 21 99 Mechanical Ventilator 40 91 24 40 08/25/19 19:00 89 22 135/64 (87) 100 08/25/19 18:00 85 28 127/59 (81) 98 08/25/19 17:00 84 25 132/66 (88) 99 08/25/19 16:42 77 23 40 08/25/19 16:00 Mechanical Ventilator 08/25/19 16:00 40 08/25/19 16:00 81 08/25/19 16:00 99.6 83 25 130/70 (90) 99 08/25/19 15:30 79 25 130/65 (86) 100 08/25/19 15:30 79 25 130/65 (86) 100 08/25/19 15:00 81 26 118/63 (81) 99 08/25/19 15:00 81 26 118/63 (81) 99 Intake and Output 08/25/19 08/26/19 19:00 07:00 Intake Total 603.993 ml 1215 ml Output Total 575 ml 490 ml Balance 28.993 ml 725 ml Free Water 200 ml IV Total 288.993 ml 425 ml Tube Feeding 315 ml 590 ml Output Urine Total 575 ml 490 ml # Bowel Movements 2 1 Laboratory Tests Test 08/25/19 17:00 08/26/19 03:50 08/26/19 04:00 Vancomycin Level Trough 10.7 ug/mL (5.0-12.0) White Blood Count 6.0 K/UL (4.8-10.8) Red Blood Count 3.90 M/UL (4.70-6.10) L Hemoglobin 12.2 G/DL (14.2-18.0) L Hematocrit 35.0 % (42.0-52.0) L Mean Corpuscular Volume 90 FL (80-99) Mean Corpuscular Hemoglobin 31.3 PG (27.0-31.0) H Mean Corpuscular Hemoglobin Concent 34.8 G/DL (32.0-36.0) Red Cell Distribution Width 12.3 % (11.6-14.8) Platelet Count 216 K/UL (150-450) Mean Platelet Volume 6.9 FL (6.5-10.1) Neutrophils (%) (Auto) 79.5 % (45.0-75.0) H Lymphocytes (%) (Auto) 14.4 % (20.0-45.0) L Monocytes (%) (Auto) 5.7 % (1.0-10.0) Eosinophils (%) (Auto) 0.3 % (0.0-3.0) Basophils (%) (Auto) 0.2 % (0.0-2.0) Sodium Level 140 MMOL/L (136-145) Potassium Level 3.6 MMOL/L (3.5-5.1) Chloride Level 107 MMOL/L (98-107) Carbon Dioxide Level 28 MMOL/L (21-32) Anion Gap 5 mmol/L (5-15) Blood Urea Nitrogen 12 mg/dL (7-18) Creatinine 0.9 MG/DL (0.55-1.30) Estimat Glomerular Filtration Rate > 60 mL/min (>60) Glucose Level 177 MG/DL (74-106) H Calcium Level 7.7 MG/DL (8.5-10.1) L Total Bilirubin 0.6 MG/DL (0.2-1.0) Aspartate Amino Transf (AST/SGOT) 83 U/L (15-37) H Alanine Aminotransferase (ALT/SGPT) 43 U/L (12-78) Alkaline Phosphatase 235 U/L (46-116) H Total Protein 6.0 G/DL (6.4-8.2) L Albumin 1.5 G/DL (3.4-5.0) L Globulin 4.5 g/dL Albumin/Globulin Ratio 0.3 (1.0-2.7) L Triglycerides Level 118 MG/DL (30-150) Arterial Blood pH 7.455 (7.350-7.450) Arterial Blood Partial Pressure CO2 37.3 mmHg (35.0-45.0) Arterial Blood Partial Pressure O2 71.7 mmHg (75.0-100.0) L Arterial Blood HCO3 25.6 mmol/L (22.0-26.0) Arterial Blood Oxygen Saturation 94.7 % (95-100) L Arterial Blood Base Excess 1.9 (-2-2) Jag Test Positive Paul Robles MD Aug 26, 2019 14:48
--- NOTE | 2019-08-26 14:50 | NUR ---
NURSE NOTES:WOUND CARE FOLLOW-UP NOTES: Sacral DTPI now evolving. Several opening within base of wound. No exudate noted. Open areas are moist and jason. Surrounding base of wound is purple with erythema along borders. Unstageable Pressure injury Plantar L heel. Base of wound is necrotic. Edges adherent to base of wound. Tx.Plan: Cleanse Sacral wound with Saline. Apply Therahoney. Apply Moisture Barrier Paste periwound. Cover with Optifoam drsg. Change every 3 days and prn. Apply Betadine to Plantar L heel. Cover with Optifoam drsg. Change every 3 days and prn. Apply Cavilon Skin Barrier R heel. Cover with Optifoam drsg. Change every 7 days and prn. Reposition at least every 2hours or as tolerated Off-load heels with pillow.
--- NOTE | 2019-08-26 17:20 | NUR ---
CASE MANAGEMENT: REVIEW 08/26/19 SI: COVID-19 ISOLATE (+) . RESPIRATORY INFECTION . HX CVA 102.4 117 29 154/77 94% ON MECHANICAL VENTILATOR FiO2 40 H/H 12.2/35.0 BG 177 CA+7.7 ABG: pH7.455 pO2 71.7 O2 SAT 94.7 IS: IV PROPOFOL Q24HR IV ZOSYN Q8HR PO ZITHROMAX QS X4 DOSES IV VANCOMYCIN BID IV ZOSYN TID IV FENTANYL GTT IV SOLU-MEDROL BID PROVENTIL INH Q6HR ATROVENT INH Q6HR KEPPRA GT BID FLOMAX PO QHS TYLENOL GT Q6HR SVETLANA-HEX 2% TP DQ \: INTENSIVE CARE UNIT DCP: [facility] WHEN STABLE PLAN: COVID-19- POSITIVE FROM FACILITY WEAN OFF VENT WHEN STABLE
[2019-08-26] MEDS: Eliquis 2.5mg tablet GT SCH (17:30)
--- NOTE | 2019-08-26 17:30 | NUR ---
NURSE NOTES: Bed bath given to patient, oral care given, turned and repositioned. No signs of acute distress.
--- NOTE | 2019-08-26 19:29 | NUR ---
HAND-OFF: Report given to Bozena PAULSON.
--- NOTE | 2019-08-26 19:30 | NUR ---
NURSE NOTES: Received pt orally intubated sedated with Fentanyl drip at 100mcg/hr infusing to RT IJ central line, Site with drsg dry and intact. SR on the monitor, bp stable afebrile. Pt tolerating Glucerna 1.2 at 50ml/hr. HOB kept elevated. On aspiration precaution. Had x1 soft grayish stool. cleaned up pt. Pt has sacral DTI and Left heel unstageable with optifoam drsg . On P 200 mattress. Turned q 2hrs prn with good skin care done. Swartz to gravity with moderate amt of jaclyn yellow urine. Swartz cath care done. Will continue to monitor.
[2019-08-26] MEDS: Dyna-Hex 2% Top Sol 2oz TOPIC SCH (20:27)
[2019-08-26] MEDS: Tamsulosin 0.4mg cap ORAL SCH (21:13)
[2019-08-26] MEDS: Metoprolol Tartrate 50mg tab GT SCH (21:14)
--- NOTE | 2019-08-26 21:14 | Consultation ---
DATE OF CONSULTATION: 08/26/2019 CARDIOLOGY CONSULTATION REASON FOR CONSULTATION: Accelerated hypertension with blood pressure of 200 as well as atrial flutter with rapid ventricular response. HISTORY OF PRESENT ILLNESS: The patient is an 84-year-old gentleman with history of hypertension, hyperlipidemia, CAD, COPD as well as seizure disorder apparently came to the emergency room for increasing shortness of breath and cough. The patient was found to be tachycardic with heart rate of 130s, in atrial flutter. The patient also had temperature 101.2. The patient was also tachypneic with the respiration of 33. The patient was then subsequently intubated and was brought to the intensive care unit. COVID test came back positive. The patient today developed accelerated hypertension with blood pressure 200 as well as heart rate of 130s, in atrial flutter. Cardiac electrophysiology consultation was requested for further evaluation. It is of note, the patient has already received Plaquenil, azithromycin as part of initial therapy for his COVID. REVIEW OF SYSTEMS: Cannot be obtained. PAST MEDICAL HISTORY: As mentioned above. FAMILY HISTORY: Noncontributory. SOCIAL HISTORY: Does not smoke or drink alcohol. There is no history of drug use. PHYSICAL EXAMINATION: VITAL SIGNS: Blood pressure of 154/77, pulse is 120, respirations 18. HEAD AND NECK: Shows no JVD. Orally intubated. LUNGS: Coarse rhonchi. CARDIOVASCULAR: Irregular S1 and S2 with no gallop or murmur. ABDOMEN: Soft. EXTREMITIES: No pitting edema. LABORATORY AND DIAGNOSTIC DATA: His labs show white count of 6, hemoglobin 12.2, hematocrit 35, and platelet count is 216. Sodium 140, potassium 3.6, BUN of 12, creatinine 0.9, and glucose of 177. His D-dimer 16.5. ASSESSMENT AND PLAN: 1. Atrial flutter with rapid ventricular response. The patient already on Eliquis 2.5 mg b.i.d. I will increase the metoprolol to 50 mg for better rate control. 2. Accelerated hypertension with blood pressure of 200. Increase the metoprolol to 50 mg b.i.d. and add p.r.n. IV hydralazine. 3. Respiratory failure due to COVID-19 pneumonia. The patient completed hydroxychloroquine. We will get an EKG to evaluate for QT. 4. Sepsis on vancomycin, Zosyn, and Solu-Medrol. 5. History of CVA. 6. Multi-infarct dementia. 7. History of seizures. Thank you very much for allowing me to participate in the care of this patient. Please do not hesitate to contact me for any questions regarding my evaluation. Sincerely, Paul Robles M.D. DR: Quiana JOB#: [id number] CC:
--- NOTE | 2019-08-26 22:32 | Neurology Progress Note ---
Interim History Interim History ROS Limited/Unobtainable: Yes - intubated Interim History intubated sedated Objective Physical Exam Last Vital Signs Date Time Temp Pulse Resp B/P (MAP) Pulse Ox O2 Delivery O2 Flow Rate FiO2 08/26/19 21:14 72 167/72 08/26/19 19:30 27 99 Mechanical Ventilator 40 28 40 08/26/19 14:30 99.5 08/20/19 20:16 2.0 Laboratory Tests Test 08/26/19 03:50 08/26/19 04:00 White Blood Count 6.0 K/UL (4.8-10.8) Red Blood Count 3.90 M/UL (4.70-6.10) L Hemoglobin 12.2 G/DL (14.2-18.0) L Hematocrit 35.0 % (42.0-52.0) L Mean Corpuscular Volume 90 FL (80-99) Mean Corpuscular Hemoglobin 31.3 PG (27.0-31.0) H Mean Corpuscular Hemoglobin Concent 34.8 G/DL (32.0-36.0) Red Cell Distribution Width 12.3 % (11.6-14.8) Platelet Count 216 K/UL (150-450) Mean Platelet Volume 6.9 FL (6.5-10.1) Neutrophils (%) (Auto) 79.5 % (45.0-75.0) H Lymphocytes (%) (Auto) 14.4 % (20.0-45.0) L Monocytes (%) (Auto) 5.7 % (1.0-10.0) Eosinophils (%) (Auto) 0.3 % (0.0-3.0) Basophils (%) (Auto) 0.2 % (0.0-2.0) Sodium Level 140 MMOL/L (136-145) Potassium Level 3.6 MMOL/L (3.5-5.1) Chloride Level 107 MMOL/L (98-107) Carbon Dioxide Level 28 MMOL/L (21-32) Anion Gap 5 mmol/L (5-15) Blood Urea Nitrogen 12 mg/dL (7-18) Creatinine 0.9 MG/DL (0.55-1.30) Estimat Glomerular Filtration Rate > 60 mL/min (>60) Glucose Level 177 MG/DL (74-106) H Calcium Level 7.7 MG/DL (8.5-10.1) L Total Bilirubin 0.6 MG/DL (0.2-1.0) Aspartate Amino Transf (AST/SGOT) 83 U/L (15-37) H Alanine Aminotransferase (ALT/SGPT) 43 U/L (12-78) Alkaline Phosphatase 235 U/L (46-116) H Total Protein 6.0 G/DL (6.4-8.2) L Albumin 1.5 G/DL (3.4-5.0) L Globulin 4.5 g/dL Albumin/Globulin Ratio 0.3 (1.0-2.7) L Triglycerides Level 118 MG/DL (30-150) Arterial Blood pH 7.455 (7.350-7.450) Arterial Blood Partial Pressure CO2 37.3 mmHg (35.0-45.0) Arterial Blood Partial Pressure O2 71.7 mmHg (75.0-100.0) L Arterial Blood HCO3 25.6 mmol/L (22.0-26.0) Arterial Blood Oxygen Saturation 94.7 % (95-100) L Arterial Blood Base Excess 1.9 (-2-2) Jag Test Positive Neurologic Exam Objective intubated, sedated, minimal withdraw cc 35 min Impression/Recommendations Problems: (1) Suspected 2019 novel coronavirus infection (2) Multi-infarct dementia (3) Uncontrolled seizures (4) History of CVA (cerebrovascular accident) (5) Acute encephalopathy (6) Aspiration pneumonia (7) Respiratory failure Diagnostic Impression icu level of care cont keevelio and dilmolly Monitor for seizures covid ro started atb wean off sedation when able Ivan Rose MD Aug 26, 2019 22:32
[2019-08-27] VITALS (45 sets, daily range): BP systolic 100–203; BP diastolic 53–100
--- NOTE | 2019-08-27 | NUR ---
NURSE NOTES: pt noted of being restless eyes were open RR30s Bp 167/82-. Increased Fentanyl drip to 15 mcg/hr.
[2019-08-27] MEDS: Albuterol 90mcg Inhaler 8gm INH SCH ×4 (01:29→20:01)
[2019-08-27] MEDS: Ipratropium Bromide Inhaler INH SCH ×4 (01:29→20:01)
--- NOTE | 2019-08-27 02:00 | NUR ---
NURSE NOTES: Bilateral soft wrist restraints maintained for safety to avoid self extubation and released q 2hrs prn for circulation.
--- NOTE | 2019-08-27 02:30 | NUR ---
NURSE NOTES: Complete bath with bed changed was done.
[2019-08-27] MEDS: LORazepam Inj 2mg/ml 1ml IV PRN ×2 (04:52→19:34)
--- NOTE | 2019-08-27 04:52 | NUR ---
NURSE NOTES: Ativan 0.5mg ivp was given due to pts anxiety with relief.
[2019-08-27 05:44] LABS: BASOPHILS % (AUTO) 0.1 % (0.0-2.0); EOSINOPHILS % (AUTO) 0.2 % (0.0-3.0); HEMATOCRIT 37.8 % (42.0-52.0); LYMPHOCYTES % (AUTO) 16.8 % (20.0-45.0); MEAN CORPUSCULAR VOLUME 91 FL (80-99); MONOCYTES % (AUTO) 3.4 % (1.0-10.0); NEUTROPHILS % (AUTO) 79.6 % (45.0-75.0); PLATELET COUNT 234 K/UL (150-450); RED BLOOD COUNT 4.15 M/UL (4.70-6.10); RED CELL DISTRIBUTION WIDTH 12.5 % (11.6-14.8); WHITE BLOOD COUNT 9.5 K/UL (4.8-10.8)
[2019-08-27 05:51] LABS: ANION GAP 9 mmol/L (5-15); CARBON DIOXIDE 28 MMOL/L (21-32); CHLORIDE 105 MMOL/L (98-107); POTASSIUM 3.6 MMOL/L (3.5-5.1); SODIUM 142 MMOL/L (136-145)
[2019-08-27 06:35] LABS: ALANINE AMINOTRANSFERASE 50 U/L (12-78); ALBUMIN 1.7 G/DL (3.4-5.0); ALBUMIN/GLOBULIN RATIO 0.3 (1.0-2.7); ALKALINE PHOSPHATASE 229 U/L (46-116); ASPARTATE AMINO TRANSFERASE 77 U/L (15-37); BILIRUBIN,TOTAL 0.5 MG/DL (0.2-1.0); BLOOD UREA NITROGEN 15 mg/dL (7-18); CALCIUM 7.8 MG/DL (8.5-10.1); CREATININE 0.9 MG/DL (0.55-1.30)
[2019-08-27] MEDS: Midazolam 2mg/2ml Inj IVP PRN (06:44)
--- NOTE | 2019-08-27 06:44 | NUR ---
NURSE NOTES: Versed 1mg ivp was given due to severe agitation
--- NOTE | 2019-08-27 07:31 | NUR ---
HAND-OFF: Report given to Janie PAULSON.
--- NOTE | 2019-08-27 07:32 | NUR ---
NURSE NOTES: Received report from LORENE Seals. Observed patient in bed, orally intubated with vent settings AC 18, TV 400, FiO2 40%, PEEP 5. Patient saturating 99%, RT at bedside at this time for suctioning. Patient has TF infusing, Glucerna 1.2 at 50ml/hr. HOB elevated. Swartz catheter and bilateral soft wrist restraints noted. Bed locked, alarmed, and in lowest position, side rails up x3. Patient remains in airborne precautions. Will continue assessment and will continue plan of care.
[2019-08-27] MEDS: Solu-MEDROL 40mg Inj IVP SCH ×2 (08:54→20:37)
[2019-08-27] MEDS: Metoprolol Tartrate 50mg tab GT SCH ×2 (08:54→20:38)
[2019-08-27] MEDS: levETIRAcetam 500mg/5ml Liquid GT SCH ×2 (08:54→20:38)
[2019-08-27] MEDS: Eliquis 2.5mg tablet GT SCH ×2 (08:55→17:00)
[2019-08-27] MEDS: Vancomycin 750mg/NS 275ml IVPB SCH ×4 (08:55→19:34)
[2019-08-27] MEDS: Acetaminophen 650mg/20.3ml GT PRN (09:30)
--- NOTE | 2019-08-27 09:30 | NUR ---
NURSE NOTES: Patient is sedated -2RASS, fentanyl infusing at 30mcg/hr. Patient remains orally intubated 7.5 at 25 middle lipline, tolerating vent settings. GT intact and patent with TF Glucerna 1.2 infusing at 50ml/hr. Right IJ TLC intact, patent, asymptomatic. Swartz catheter noted, with yellow, straw colored urine output. Bilateral soft wrist restraints in place to avoid self extubation. Scheduled medication administered. Patient noted to have temperature of 100.5 axillary. Tylenol given and cooling measures applied. Safety precautions in place; bed locked, alarmed and in lowest position, padded side rails up x2, and call light within reach. Will continue plan of care and will continue to monitor patient.
--- NOTE | 2019-08-27 10:11 | NUR ---
RD ASSESSMENT & RECOMMENDATIONS SEE CARE ACTIVITY FOR COMPLETE ASSESSMENT DAILY ESTIMATED NEEDS: Needs based on Critical care, Wounds/ 53kg abw 22-28 kcals/kg 2240-1985 total kcals 1.25-2 g protein/kg 66-106 g total protein 25-30 mL/kg 7398-6001 total fluid mLs NUTRITION DIAGNOSIS: * Swallowing difficulty R/T dysphagia as evidenced by PEG dep, s/p intubation, on GT feeding. * Increased kcal/prot needs R/T wound healing as evidenced by pt admitted w/ evolving DTPI sacral wound and unstageable lt heel wound. CURRENT TF:Glucerna 1.2 @50ml/hr x22 hrs ENTERAL NUTRITION RECOMMENDATIONS: Glucerna 1.2 @ 50ml/hr x 22 hrs (hold 1 hr before and after Dilantin QD) to provide 1100ml, 1320kcal, 66g prot, 886ml free water * Maintain Glucerna 1.2 for carb control, BGs elevated. * Hold 1 hr before and after Dilantin med * HOB over 30 degrees/ without IVF, H20 flush of 150ml q 6 hrs FOR 24 HRS TF RUN WITHOUT DILANTIN (Dilantin currently held) : okay to keep the same TF rate of Glucerna 1.2 @ 50ml/hr x 24 hrs to provide 1200ml, 1440kcal, 72g prot 966ml free water -> will still meet 100% est kcal/prot needs ADDITIONAL RECOMMENDATIONS: * Per SNF record, ht is 60", wt is 149lbs (08/14/19) Rec calibrated bedscale wt * Rec NISS w/ TF: BGs elevated, now on Solumedrol * Wound healing: add Vit C 500mg QD + Giancarlo 1pkt BID via PEG * Monitor lytes, replete as needed .
--- NOTE | 2019-08-27 10:37 | General Progress Note ---
Assessment/Plan Assessment/Plan: 83YO M with HTN, HLD, COPD, CAD, Seizure disorder presenting with cough and shortness of breath. In the ED, patient was found to be tachycardic (130's) and tachypnic (33) and febrile at 101.2. #Hypoxemic acute respiratory failure #Septic shock #Covid19 positive #transaminitis - likely 2/2 to above, downtrending #Fevers -Appreciate ICU care -Pulm/CCM eval appreciated -Cont. contact plus droplet isolation. -Continuous hall monitor. -Continue vent management per the ICU team, daily SBT -Daily labs. -s/p Plaquenil -08/25 CXR reviewed, worsening b/l infiltrates -cont. abx per ID, Zosyn and zyvox -ID and Pulm following -given fevers on 08/26, will repeat BCx, SCx, CXR, d/w ID #History of Seizure disorder: -cont Dilantin and Keppra -Neurology following #Hypokalemia -replaced -check Mg -ctm, replace PRN #Accelerated HTN #HLD #CAD #Eliquis use #Atrial flutter with rapid ventricular response #elevated troponins likely 2/2 demand ischemia, down trending -MTP increased from 25 to 50 BID, hydralazine PRN -Eliquis 2.5 -Cardio consulted, recs appreciated prognosis guarded I spent 75 minutes on this patient's case, and 35 mins was dedicated to critical care. Critical Care Services performed include: Telemetry Review Hemodynamic measurement interpretation Laboratory data review and interpretation Radiology image review and interpretation Ventilator setting review, management, and adjustment Discussion of patient's care with ICU team, ICU Nursing staff and/or consulting services Subjective ROS Limited/Unobtainable: Yes - pt intubated Allergies: Coded Allergies: No Known Allergies (Unverified , 02/29/16) Subjective Follow up for acute hypoxic resp failure, septic shock, COVID-19 positive Fevers this a.m., WBC increasing but no leukocytosis, noted 80% neutrophils. Patient remains intubated at this time. Objective Last 24 Hour Vital Signs Date Time Temp Pulse Resp B/P (MAP) Pulse Ox O2 Delivery O2 Flow Rate FiO2 08/27/19 10:00 92 28 120/61 (80) 95 08/27/19 10:00 28 Mechanical Ventilator 08/27/19 09:59 52 08/27/19 09:58 96 08/27/19 09:30 97 30 131/60 (83) 97 08/27/19 09:00 100.5 109 34 152/70 (97) 97 08/27/19 09:00 35 Mechanical Ventilator 08/27/19 08:56 109 37 40 08/27/19 08:54 109 141/68 08/27/19 08:30 110 35 141/68 (92) 94 08/27/19 08:00 110 08/27/19 08:00 115 43 153/74 (100) 93 08/27/19 08:00 47 Mechanical Ventilator 08/27/19 08:00 40 08/27/19 08:00 Mechanical Ventilator 08/27/19 07:32 111 44 95 Mechanical Ventilator 40 111 47 40 08/27/19 07:00 30 Mechanical Ventilator 40 08/27/19 06:49 107 36 150/67 (94) 94 08/27/19 06:30 100 31 08/27/19 06:30 108 46 182/86 (118) 96 08/27/19 06:00 99 45 159/73 (101) 97 08/27/19 06:00 32 Mechanical Ventilator 40 08/27/19 05:30 93 35 152/74 (100) 95 08/27/19 05:00 93 36 136/67 (90) 93 08/27/19 05:00 30 Mechanical Ventilator 40 08/27/19 04:30 96 44 175/73 (107) 96 08/27/19 04:00 98.0 96 27 172/82 (112) 97 08/27/19 04:00 Mechanical Ventilator 08/27/19 04:00 40 Mechanical Ventilator 40 08/27/19 04:00 80 08/27/19 04:00 40 08/27/19 03:30 76 28 171/72 (105) 94 08/27/19 03:30 77 30 40 08/27/19 03:00 30 Mechanical Ventilator 40 08/27/19 03:00 77 29 164/70 (101) 93 08/27/19 02:30 79 33 167/71 (103) 93 08/27/19 02:00 77 27 161/77 (105) 96 08/27/19 02:00 31 Mechanical Ventilator 40 08/27/19 01:30 78 25 122/100 (107) 97 08/27/19 01:26 78 32 98 Mechanical Ventilator 40 80 30 40 08/27/19 01:00 31 Mechanical Ventilator 40 08/27/19 01:00 78 30 100/82 (88) 95 08/27/19 00:30 78 30 152/82 (105) 95 08/27/19 00:00 Mechanical Ventilator 08/27/19 00:00 31 Mechanical Ventilator 40 08/27/19 00:00 78 08/27/19 00:00 98.0 78 31 164/77 (106) 96 08/27/19 00:00 40 08/26/19 23:30 77 31 40 08/26/19 23:30 78 32 145/77 (99) 93 08/26/19 23:00 32 Mechanical Ventilator 40 08/26/19 23:00 75 34 152/79 (103) 93 08/26/19 22:30 76 38 172/79 (110) 90 08/26/19 22:00 32 Mechanical Ventilator 40 08/26/19 22:00 75 27 152/62 (92) 98 08/26/19 21:30 77 29 149/64 (92) 97 08/26/19 21:14 72 167/72 08/26/19 21:00 30 Mechanical Ventilator 40 08/26/19 21:00 78 29 167/72 (103) 97 08/26/19 20:30 75 32 144/65 (91) 94 08/26/19 20:00 Mechanical Ventilator 08/26/19 20:00 40 08/26/19 20:00 98.2 74 26 148/67 (94) 97 08/26/19 20:00 77 08/26/19 20:00 31 Mechanical Ventilator 40 08/26/19 19:30 73 27 99 Mechanical Ventilator 40 77 28 40 08/26/19 19:30 74 28 152/71 (98) 97 08/26/19 19:00 76 26 148/68 (94) 96 08/26/19 19:00 26 Endotracheal Tube 40 08/26/19 18:30 78 30 150/70 (96) 95 08/26/19 18:00 82 34 40 08/26/19 18:00 82 35 164/67 (99) 94 08/26/19 18:00 35 Endotracheal Tube 40 08/26/19 17:30 76 26 124/60 (81) 93 08/26/19 17:00 81 27 132/64 (86) 94 08/26/19 17:00 27 Endotracheal Tube 40 08/26/19 16:13 117 08/26/19 16:00 Mechanical Ventilator 08/26/19 16:00 40 08/26/19 16:00 26 Endotracheal Tube 40 08/26/19 16:00 80 26 113/53 (73) 94 08/26/19 15:00 88 26 136/67 (90) 95 08/26/19 15:00 26 Endotracheal Tube 40 08/26/19 14:49 93 26 40 08/26/19 14:30 99.5 86 26 125/61 (82) 98 08/26/19 14:07 27 Endotracheal Tube 40 08/26/19 14:00 90 27 117/61 (79) 97 08/26/19 14:00 27 Endotracheal Tube 40 08/26/19 13:47 29 Mechanical Ventilator 40 08/26/19 13:05 87 27 97 Mechanical Ventilator 40 95 25 40 08/26/19 13:00 100.8 97 26 143/73 (96) 93 08/26/19 12:09 114 154/77 08/26/19 12:00 Mechanical Ventilator 08/26/19 12:00 40 08/26/19 12:00 102.4 117 29 154/77 (102) 94 08/26/19 11:56 117 08/26/19 11:10 127 44 204/113 (143) 100 08/26/19 11:09 125 40 40 08/26/19 11:00 118 45 174/115 (134) 96 Intake and Output 08/26/19 08/27/19 19:00 07:00 Intake Total 1281.210 ml 735.5 ml Output Total 650 ml 705 ml Balance 631.210 ml 30.5 ml Free Water 300 ml 90 ml IV Total 381.210 ml 45.5 ml Tube Feeding 600 ml 600 ml Output Urine Total 650 ml 705 ml # Bowel Movements 1 3 Laboratory Tests 08/27/19 04:10: White Blood Count 9.5#, Red Blood Count 4.15L, Hemoglobin 13.0L, Hematocrit 37.8L, Mean Corpuscular Volume 91, Mean Corpuscular Hemoglobin 31.3H, Mean Corpuscular Hemoglobin Concent 34.4, Red Cell Distribution Width 12.5, Platelet Count 234, Mean Platelet Volume 6.4L, Neutrophils (%) (Auto) 79.6H, Lymphocytes (%) (Auto) 16.8L, Monocytes (%) (Auto) 3.4, Eosinophils (%) (Auto) 0.2, Basophils (%) (Auto) 0.1, Sodium Level 142, Potassium Level 3.6, Chloride Level 105, Carbon Dioxide Level 28, Anion Gap 9, Blood Urea Nitrogen 15, Creatinine 0.9, Estimat Glomerular Filtration Rate > 60, Glucose Level 143H, Calcium Level 7.8L, Total Bilirubin 0.5, Aspartate Amino Transf (AST/SGOT) 77H, Alanine Aminotransferase (ALT/SGPT) 50, Alkaline Phosphatase 229H, Troponin I 0.158H, Total Protein 6.9, Albumin 1.7L, Globulin 5.2, Albumin/Globulin Ratio 0.3L 08/27/19 06:44: Vancomycin Level Trough 14.9H Height (Feet): 5 Height (Inches): 8.00 Weight (Pounds): 160 Objective General Appearance: Intubated, appears comfortable Cardiovascular: sinus rhythm, no tachycardia Respiratory/Chest: symmetrical rise in lungs b/l, intubated Ext: no edema Liliana Leal M.D. Aug 27, 2019 10:37
--- NOTE | 2019-08-27 10:45 | Progress Note ---
DATE: 08/23/2019 PULMONARY AND CRITICAL CARE ICU PROGRESS NOTE ICU day #3 and intubation day #4 . EVENTS: The patient intubated with FiO2 40, PEEP of 5. He is stable on the vent. He failed spontaneous breathing trial yesterday. Secretions have been stable. LINES: Right IJ. PAST MEDICAL HISTORY: Unchanged from prior. PAST SURGICAL HISTORY: Unchanged from prior. SOCIAL HISTORY: Unchanged from prior. FAMILY HISTORY: Unchanged from prior. ALLERGIES: Reviewed. MEDICATIONS: Reviewed. PHYSICAL EXAMINATION: VITAL SIGNS: The patient is afebrile. He is on ventilator on AC mode of 14, tidal volume 400, FiO2 40, PEEP of 5. He is sedated on a propofol drip in no distress. HEENT: ET tube in place. LINES: Right IJ as noted. Respiratory secretions nonsignificant. ANCILLARY DATA: White count 6.5, hemoglobin 14.4, and platelet count 149. ABG, 7.42/40/94//. No chemistry from today. Ferritin 717. CRP 29.6. Culture data 08/19/2019, blood cultures no growth. Influenza A and B negative. ASSESSMENT: 1. Ventilator-dependent respiratory failure. 2. Suspected COVID-19 infection. 3. History of CVA. 4. Encephalopathy. 5. Multiinfarct dementia. 6. Seizure disorder. TREATMENT PLAN: 1. Continue ventilatory support, settings reviewed, tidal volume 400, AC 14, PEEP 5, FiO2 40. 2. Lung protective ventilation. 3. Daily SBT. 4. Monitor gas exchange . 5. Albuterol and Atrovent HFA in-line with vent. 6. May consider steroids in the future. 7. Plaquenil day #4. 8. Antibiotics vancomycin, Zosyn, and Zithromax per ID. 9. Followup COVID labs. 10. Followup IL-6. 11. HIV negative. 12. Daily CRP and ferritin. 13. Discussed with pharmacy regarding tocilizumab. Per pharmacy, on national shortage and cannot get. We will continue to follow up. 14. __03:53___ limited to trial can get under compassionate care. 15. Monitor volumes and renal function. 16. Propofol drip, monitor triglycerides. 17. Follow up Neurology recommendations, continue antiepileptic drugs. 18. Monitor LFTs. 19. Continue tube feeds. 20. DVT prophylaxis, Eliquis. 21. The patient is Full Code. 22. Continue to discuss goals of care. 23. Notes of consultants (Internal Medicine, Infectious Diseases, and Neurology reviewed) 24. A 45 minutes of critical care time spent. David Nash M.D. DR: Kartik JOB#: [id number] CC:
--- NOTE | 2019-08-27 11:19 | Cardiac Electrophysiology PN ---
Assessment/Plan Assessment/Plan 1. Atrial flutter with rapid ventricular response. On Eliquis 2.5 mg b.i.d. and metoprolol 50 mg bid in SR via G tube 2. Accelerated hypertension with blood pressure of 200. Better on metoprolol 50 mg b.i.d. and p.r.n. IV hydralazine. 3. 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 4. Respiratory failure due to COVID-19 pneumonia. On the Vent. The patient completed hydroxychloroquine. EKG QT 440 . 5. Sepsis on vancomycin, Zosyn, and Solu-Medrol. 6. History of CVA. 7. Multi-infarct dementia. 8. History of seizures. Subjective Subjective Intubated in ICU on the vent. Covid is positive. In SR Objective Last 24 Hour Vital Signs Date Time Temp Pulse Resp B/P (MAP) Pulse Ox O2 Delivery O2 Flow Rate FiO2 08/27/19 10:00 92 28 120/61 (80) 95 08/27/19 10:00 28 Mechanical Ventilator 08/27/19 09:59 52 08/27/19 09:58 96 08/27/19 09:30 97 30 131/60 (83) 97 08/27/19 09:00 100.5 109 34 152/70 (97) 97 08/27/19 09:00 35 Mechanical Ventilator 08/27/19 08:56 109 37 40 08/27/19 08:54 109 141/68 08/27/19 08:30 110 35 141/68 (92) 94 08/27/19 08:00 110 08/27/19 08:00 115 43 153/74 (100) 93 08/27/19 08:00 47 Mechanical Ventilator 08/27/19 08:00 40 08/27/19 08:00 Mechanical Ventilator 08/27/19 07:32 111 44 95 Mechanical Ventilator 40 111 47 40 08/27/19 07:00 30 Mechanical Ventilator 40 08/27/19 06:49 107 36 150/67 (94) 94 08/27/19 06:30 100 31 08/27/19 06:30 108 46 182/86 (118) 96 08/27/19 06:00 99 45 159/73 (101) 97 08/27/19 06:00 32 Mechanical Ventilator 40 08/27/19 05:30 93 35 152/74 (100) 95 08/27/19 05:00 93 36 136/67 (90) 93 08/27/19 05:00 30 Mechanical Ventilator 40 08/27/19 04:30 96 44 175/73 (107) 96 08/27/19 04:00 98.0 96 27 172/82 (112) 97 08/27/19 04:00 Mechanical Ventilator 08/27/19 04:00 40 Mechanical Ventilator 40 08/27/19 04:00 80 08/27/19 04:00 40 08/27/19 03:30 76 28 171/72 (105) 94 08/27/19 03:30 77 30 40 08/27/19 03:00 30 Mechanical Ventilator 40 08/27/19 03:00 77 29 164/70 (101) 93 08/27/19 02:30 79 33 167/71 (103) 93 08/27/19 02:00 77 27 161/77 (105) 96 08/27/19 02:00 31 Mechanical Ventilator 40 08/27/19 01:30 78 25 122/100 (107) 97 08/27/19 01:26 78 32 98 Mechanical Ventilator 40 80 30 40 08/27/19 01:00 31 Mechanical Ventilator 40 08/27/19 01:00 78 30 100/82 (88) 95 08/27/19 00:30 78 30 152/82 (105) 95 08/27/19 00:00 Mechanical Ventilator 08/27/19 00:00 31 Mechanical Ventilator 40 08/27/19 00:00 78 08/27/19 00:00 98.0 78 31 164/77 (106) 96 08/27/19 00:00 40 08/26/19 23:30 77 31 40 08/26/19 23:30 78 32 145/77 (99) 93 08/26/19 23:00 32 Mechanical Ventilator 40 08/26/19 23:00 75 34 152/79 (103) 93 08/26/19 22:30 76 38 172/79 (110) 90 08/26/19 22:00 32 Mechanical Ventilator 40 08/26/19 22:00 75 27 152/62 (92) 98 08/26/19 21:30 77 29 149/64 (92) 97 08/26/19 21:14 72 167/72 08/26/19 21:00 30 Mechanical Ventilator 40 08/26/19 21:00 78 29 167/72 (103) 97 08/26/19 20:30 75 32 144/65 (91) 94 08/26/19 20:00 Mechanical Ventilator 08/26/19 20:00 40 08/26/19 20:00 98.2 74 26 148/67 (94) 97 08/26/19 20:00 77 08/26/19 20:00 31 Mechanical Ventilator 40 08/26/19 19:30 73 27 99 Mechanical Ventilator 40 77 28 40 08/26/19 19:30 74 28 152/71 (98) 97 08/26/19 19:00 76 26 148/68 (94) 96 08/26/19 19:00 26 Endotracheal Tube 40 08/26/19 18:30 78 30 150/70 (96) 95 08/26/19 18:00 82 34 40 08/26/19 18:00 82 35 164/67 (99) 94 08/26/19 18:00 35 Endotracheal Tube 40 08/26/19 17:30 76 26 124/60 (81) 93 08/26/19 17:00 81 27 132/64 (86) 94 08/26/19 17:00 27 Endotracheal Tube 40 08/26/19 16:13 117 08/26/19 16:00 Mechanical Ventilator 08/26/19 16:00 40 08/26/19 16:00 26 Endotracheal Tube 40 08/26/19 16:00 80 26 113/53 (73) 94 08/26/19 15:00 88 26 136/67 (90) 95 08/26/19 15:00 26 Endotracheal Tube 40 08/26/19 14:49 93 26 40 08/26/19 14:30 99.5 86 26 125/61 (82) 98 08/26/19 14:07 27 Endotracheal Tube 40 08/26/19 14:00 90 27 117/61 (79) 97 08/26/19 14:00 27 Endotracheal Tube 40 08/26/19 13:47 29 Mechanical Ventilator 40 08/26/19 13:05 87 27 97 Mechanical Ventilator 40 95 25 40 08/26/19 13:00 100.8 97 26 143/73 (96) 93 08/26/19 12:09 114 154/77 08/26/19 12:00 Mechanical Ventilator 08/26/19 12:00 40 08/26/19 12:00 102.4 117 29 154/77 (102) 94 08/26/19 11:56 117 Intake and Output 08/26/19 08/27/19 19:00 07:00 Intake Total 1281.210 ml 735.5 ml Output Total 650 ml 705 ml Balance 631.210 ml 30.5 ml Free Water 300 ml 90 ml IV Total 381.210 ml 45.5 ml Tube Feeding 600 ml 600 ml Output Urine Total 650 ml 705 ml # Bowel Movements 1 3 Laboratory Tests Test 08/27/19 04:10 08/27/19 06:44 White Blood Count 9.5 K/UL (4.8-10.8) # Red Blood Count 4.15 M/UL (4.70-6.10) L Hemoglobin 13.0 G/DL (14.2-18.0) L Hematocrit 37.8 % (42.0-52.0) L Mean Corpuscular Volume 91 FL (80-99) Mean Corpuscular Hemoglobin 31.3 PG (27.0-31.0) H Mean Corpuscular Hemoglobin Concent 34.4 G/DL (32.0-36.0) Red Cell Distribution Width 12.5 % (11.6-14.8) Platelet Count 234 K/UL (150-450) Mean Platelet Volume 6.4 FL (6.5-10.1) L Neutrophils (%) (Auto) 79.6 % (45.0-75.0) H Lymphocytes (%) (Auto) 16.8 % (20.0-45.0) L Monocytes (%) (Auto) 3.4 % (1.0-10.0) Eosinophils (%) (Auto) 0.2 % (0.0-3.0) Basophils (%) (Auto) 0.1 % (0.0-2.0) Sodium Level 142 MMOL/L (136-145) Potassium Level 3.6 MMOL/L (3.5-5.1) Chloride Level 105 MMOL/L (98-107) Carbon Dioxide Level 28 MMOL/L (21-32) Anion Gap 9 mmol/L (5-15) Blood Urea Nitrogen 15 mg/dL (7-18) Creatinine 0.9 MG/DL (0.55-1.30) Estimat Glomerular Filtration Rate > 60 mL/min (>60) Glucose Level 143 MG/DL (74-106) H Calcium Level 7.8 MG/DL (8.5-10.1) L Total Bilirubin 0.5 MG/DL (0.2-1.0) Aspartate Amino Transf (AST/SGOT) 77 U/L (15-37) H Alanine Aminotransferase (ALT/SGPT) 50 U/L (12-78) Alkaline Phosphatase 229 U/L (46-116) H Troponin I 0.158 ng/mL (0.000-0.056) Total Protein 6.9 G/DL (6.4-8.2) Albumin 1.7 G/DL (3.4-5.0) L Globulin 5.2 g/dL Albumin/Globulin Ratio 0.3 (1.0-2.7) L Vancomycin Level Trough 14.9 ug/mL (5.0-12.0) H Objective HEAD AND NECK: No JVD. Orally intubated. LUNGS: Coarse rhonchi. CARDIOVASCULAR: Irregular S1 and S2 with no gallop or murmur. ABDOMEN: Soft. EXTREMITIES: No pitting edema. Paul Robles MD Aug 27, 2019 11:18
--- NOTE | 2019-08-27 12:00 | NUR ---
NURSE NOTES: Blood culture collected from central line. Clarification of orders from Dr Velásquez, one set of blood culture from central line and one set of blood culture peripherally. Attempted to draw blood peripherally, unsuccessful at this time; patient is very edematous on bilateral upper extremities. Lab notified, spoke with Nemo, states she is aware of the order. Bed bath given to patient. Small BM noted. Linens changed, repositioned patient. Oral care provided and restraints care. Patient's temperature 99.0F axillary, cooling measures in place. Safety precautions in place. Will continue to monitor.
--- NOTE | 2019-08-27 12:19 | Pulmonolgy Critical Care Note ---
Critical Care - Asmt/Plan Problems: (1) Respiratory failure (2) Suspected 2019 novel coronavirus infection (3) History of CVA (cerebrovascular accident) (4) Acute encephalopathy (5) Multi-infarct dementia (6) Uncontrolled seizures Assessment/Plan: Continue ventilatory support ---> will wean via SIMV Monitor gas exchange STRONGLY CONSIDER HHN's in line with Vent SM 40 IV BID (D3) and taper Completed 5 days of Plaquenil Vanco/Zosyn per ID Daily CRP and ferritin D/W pharmacy RE: Tociluzumab - per pharmacist on national shortage and cannot get, will continue to follow up Remdesivir limited to trial, cannot get under compassionate care Monitor volumes and renal function ICU sedation: Fent gtt for RASS -2 with PRN Versed F/U neuro recs, continue AED's Monitor LFT's TF's DVT Px: Eliquis FC, continue to discuss GOC Disposition: keep in ICU Time Spent (Minutes): 40 Notes Reviewed: meat supervisor, cardio, ID, neuro Discussed with: nurses, consultants Critical Care - Objective Last 24 Hour Vital Signs Date Time Temp Pulse Resp B/P (MAP) Pulse Ox O2 Delivery O2 Flow Rate FiO2 08/27/19 10:00 92 28 120/61 (80) 95 08/27/19 10:00 28 Mechanical Ventilator 08/27/19 09:59 52 08/27/19 09:58 96 08/27/19 09:30 97 30 131/60 (83) 97 08/27/19 09:00 100.5 109 34 152/70 (97) 97 08/27/19 09:00 35 Mechanical Ventilator 08/27/19 08:56 109 37 40 08/27/19 08:54 109 141/68 08/27/19 08:30 110 35 141/68 (92) 94 08/27/19 08:00 110 08/27/19 08:00 115 43 153/74 (100) 93 08/27/19 08:00 47 Mechanical Ventilator 08/27/19 08:00 40 08/27/19 08:00 Mechanical Ventilator 08/27/19 07:32 111 44 95 Mechanical Ventilator 40 111 47 40 08/27/19 07:00 30 Mechanical Ventilator 40 08/27/19 06:49 107 36 150/67 (94) 94 08/27/19 06:30 100 31 08/27/19 06:30 108 46 182/86 (118) 96 08/27/19 06:00 99 45 159/73 (101) 97 08/27/19 06:00 32 Mechanical Ventilator 40 08/27/19 05:30 93 35 152/74 (100) 95 08/27/19 05:00 93 36 136/67 (90) 93 08/27/19 05:00 30 Mechanical Ventilator 40 08/27/19 04:30 96 44 175/73 (107) 96 08/27/19 04:00 98.0 96 27 172/82 (112) 97 08/27/19 04:00 Mechanical Ventilator 08/27/19 04:00 40 Mechanical Ventilator 40 08/27/19 04:00 80 08/27/19 04:00 40 08/27/19 03:30 76 28 171/72 (105) 94 08/27/19 03:30 77 30 40 08/27/19 03:00 30 Mechanical Ventilator 40 08/27/19 03:00 77 29 164/70 (101) 93 08/27/19 02:30 79 33 167/71 (103) 93 08/27/19 02:00 77 27 161/77 (105) 96 08/27/19 02:00 31 Mechanical Ventilator 40 08/27/19 01:30 78 25 122/100 (107) 97 08/27/19 01:26 78 32 98 Mechanical Ventilator 40 80 30 40 08/27/19 01:00 31 Mechanical Ventilator 40 08/27/19 01:00 78 30 100/82 (88) 95 08/27/19 00:30 78 30 152/82 (105) 95 08/27/19 00:00 Mechanical Ventilator 08/27/19 00:00 31 Mechanical Ventilator 40 08/27/19 00:00 78 08/27/19 00:00 98.0 78 31 164/77 (106) 96 08/27/19 00:00 40 08/26/19 23:30 77 31 40 08/26/19 23:30 78 32 145/77 (99) 93 08/26/19 23:00 32 Mechanical Ventilator 40 08/26/19 23:00 75 34 152/79 (103) 93 08/26/19 22:30 76 38 172/79 (110) 90 08/26/19 22:00 32 Mechanical Ventilator 40 08/26/19 22:00 75 27 152/62 (92) 98 08/26/19 21:30 77 29 149/64 (92) 97 08/26/19 21:14 72 167/72 08/26/19 21:00 30 Mechanical Ventilator 40 08/26/19 21:00 78 29 167/72 (103) 97 08/26/19 20:30 75 32 144/65 (91) 94 08/26/19 20:00 Mechanical Ventilator 08/26/19 20:00 40 08/26/19 20:00 98.2 74 26 148/67 (94) 97 08/26/19 20:00 77 08/26/19 20:00 31 Mechanical Ventilator 40 08/26/19 19:30 73 27 99 Mechanical Ventilator 40 77 28 40 08/26/19 19:30 74 28 152/71 (98) 97 08/26/19 19:00 76 26 148/68 (94) 96 08/26/19 19:00 26 Endotracheal Tube 40 08/26/19 18:30 78 30 150/70 (96) 95 08/26/19 18:00 82 34 40 08/26/19 18:00 82 35 164/67 (99) 94 08/26/19 18:00 35 Endotracheal Tube 40 08/26/19 17:30 76 26 124/60 (81) 93 08/26/19 17:00 81 27 132/64 (86) 94 08/26/19 17:00 27 Endotracheal Tube 40 08/26/19 16:13 117 08/26/19 16:00 Mechanical Ventilator 08/26/19 16:00 40 08/26/19 16:00 26 Endotracheal Tube 40 08/26/19 16:00 80 26 113/53 (73) 94 08/26/19 15:00 88 26 136/67 (90) 95 08/26/19 15:00 26 Endotracheal Tube 40 08/26/19 14:49 93 26 40 08/26/19 14:30 99.5 86 26 125/61 (82) 98 08/26/19 14:07 27 Endotracheal Tube 40 08/26/19 14:00 90 27 117/61 (79) 97 08/26/19 14:00 27 Endotracheal Tube 40 08/26/19 13:47 29 Mechanical Ventilator 40 08/26/19 13:05 87 27 97 Mechanical Ventilator 40 95 25 40 08/26/19 13:00 100.8 97 26 143/73 (96) 93 Status: sedated - intubated Condition: critical Heart: HR/BP stable Blood Sugars: BS controlled Critical Care - Subjective ROS Limited/Unobtainable: Yes ICU Day: 7 Intubation Day: 8 Interval Events: Failed SBT NAEO o/w Trops coming down Cards eval noted Condition: critical IV Access: central EKG Rhythm: Sinus Rhythm Vent Support Breath Rate: 18 Vent Support Mode: CPAP Vent Tidal Volume: 400 Sputum Amount: Small PEEP: 5.0 PIP: 32 Secretions: Small Fluids: SLIV Drips: Fent @ 30 Tube Feeding Amount: 50 I&O: Intake and Output 08/26/19 08/27/19 19:00 07:00 Intake Total 1281.210 ml 735.5 ml Output Total 650 ml 705 ml Balance 631.210 ml 30.5 ml Free Water 300 ml 90 ml IV Total 381.210 ml 45.5 ml Tube Feeding 600 ml 600 ml Output Urine Total 650 ml 705 ml # Bowel Movements 1 3 Subjective: REYMUNDO ET-Tube: 7.5 ET Position: 25 Labs: Laboratory Tests Test 08/27/19 04:10 08/27/19 06:44 White Blood Count 9.5 K/UL (4.8-10.8) # Red Blood Count 4.15 M/UL (4.70-6.10) L Hemoglobin 13.0 G/DL (14.2-18.0) L Hematocrit 37.8 % (42.0-52.0) L Mean Corpuscular Volume 91 FL (80-99) Mean Corpuscular Hemoglobin 31.3 PG (27.0-31.0) H Mean Corpuscular Hemoglobin Concent 34.4 G/DL (32.0-36.0) Red Cell Distribution Width 12.5 % (11.6-14.8) Platelet Count 234 K/UL (150-450) Mean Platelet Volume 6.4 FL (6.5-10.1) L Neutrophils (%) (Auto) 79.6 % (45.0-75.0) H Lymphocytes (%) (Auto) 16.8 % (20.0-45.0) L Monocytes (%) (Auto) 3.4 % (1.0-10.0) Eosinophils (%) (Auto) 0.2 % (0.0-3.0) Basophils (%) (Auto) 0.1 % (0.0-2.0) Sodium Level 142 MMOL/L (136-145) Potassium Level 3.6 MMOL/L (3.5-5.1) Chloride Level 105 MMOL/L (98-107) Carbon Dioxide Level 28 MMOL/L (21-32) Anion Gap 9 mmol/L (5-15) Blood Urea Nitrogen 15 mg/dL (7-18) Creatinine 0.9 MG/DL (0.55-1.30) Estimat Glomerular Filtration Rate > 60 mL/min (>60) Glucose Level 143 MG/DL (74-106) H Calcium Level 7.8 MG/DL (8.5-10.1) L Total Bilirubin 0.5 MG/DL (0.2-1.0) Aspartate Amino Transf (AST/SGOT) 77 U/L (15-37) H Alanine Aminotransferase (ALT/SGPT) 50 U/L (12-78) Alkaline Phosphatase 229 U/L (46-116) H Troponin I 0.158 ng/mL (0.000-0.056) Total Protein 6.9 G/DL (6.4-8.2) Albumin 1.7 G/DL (3.4-5.0) L Globulin 5.2 g/dL Albumin/Globulin Ratio 0.3 (1.0-2.7) L Vancomycin Level Trough 14.9 ug/mL (5.0-12.0) H David Nash MD Aug 27, 2019 12:19
[2019-08-27] MEDS: fentaNYL Citrate 1000 MCG in NS 100ml IV SCH ×2 (12:46→22:13)
--- NOTE | 2019-08-27 13:48 | NUR ---
RESPIRATORY NOTE: attempted to wean pt again with SIMV R20 Vt 400 [id number]% +5 with PS10 per MD. weaned for about 10 mins and pt's respirations ranged from 37-52. pt had uneven breathing pattern, labored and retractive. HR did not elevated and spo2 did not fall below 95. placed pt back on AC. RN notified
--- NOTE | 2019-08-27 14:00 | NUR ---
NURSE NOTES: Patient is sedated -2 RASS. Repositioned patient. Oral care provided. Zosyn administered. Fentanyl infusing at 30mcg/hr. No BM noted, left pt clean and dry. Will continue to monitor.
--- NOTE | 2019-08-27 16:25 | NUR ---
NURSE NOTES: Patient is sedated -2 RASS. Zosyn infusing. Fentanyl infusing at 30mcg/hr. No s/s of distress. Will continue to monitor.
--- NOTE | 2019-08-27 18:00 | NUR ---
NURSE NOTES: Patient remains sedated at -2RASS. Patient remains on fentanyl 30mcg/hr. Patient left clean and dry. Oral care and restraints care provided. Will continue to monitor.
--- NOTE | 2019-08-27 18:59 | NUR ---
HAND-OFF: Report given to LORENE Seals. Endorsed plan of care.
--- NOTE | 2019-08-27 19:00 | NUR ---
NURSE NOTES: Received pt orally intubated on ac mode, sedated with Fentanyl drip at 30mcg/hr but still very agitated BP went up as well as RR went to 50s. Fentanyl drip increased to 40mcg/hr. Will continue to monitor..
--- NOTE | 2019-08-27 19:00 | NUR ---
NURSE NOTES: Dr Velásquez aware that peripheral blood culture unable to draw. No new orders received at this time.
--- NOTE | 2019-08-27 19:01 | Infectious Diseases Prog Note ---
Assessment/Plan Assessment/Plan ASSESSMENT AND PLAN: 1. covid-19 virus infection, pna, sepsis, fevers, vent, respiratory failure - zosyn and vancomycin, s/p hydroxychloroquine - f/u on labs and chest x-ray - supportive care, ivf, vent - d/w RN - remains critical - reculture for fevers - communicated with Dr. Leal 2. Respiratory failure, on vent. 3. History of hyperlipidemia. 4. History of hypertension. 5. Atherosclerotic heart disease. 6. CAD. 7. COPD. 8. Dementia. 9. Nonverbal at baseline. 10. History of seizures. 11. No known drug allergies. 12. Social history negative. 13. Family history noncontributory. 14. MAR was noted. 15. Case discussed with RN. 16. Continue treatment per primary consultants. Subjective Constitutional: Reports: fever, fatigue, other - on vent HEENT: Reports: congestion Respiratory: Reports: shortness of breath Cardiovascular: Reports: other - no pressors Gastrointestinal/Abdominal: Denies: nausea, vomiting, diarrhea Genitourinary: Reports: other - + verduzco Neurologic: Denies: headache Psychiatric: Denies: depression Skin: Reports: rash Hematologic: Denies: bleeding Musculoskeletal: Reports: other - NA Allergies: Coded Allergies: No Known Allergies (Unverified , 02/29/16) Objective Vital Signs Last 24 Hour Vital Signs Date Time Temp Pulse Resp B/P (MAP) Pulse Ox O2 Delivery O2 Flow Rate FiO2 08/27/19 17:00 97.8 78 27 141/68 (92) 97 08/27/19 16:30 77 27 112/60 (77) 96 08/27/19 16:00 40 08/27/19 16:00 Mechanical Ventilator 08/27/19 16:00 79 08/27/19 16:00 75 27 108/54 (72) 96 08/27/19 15:10 79 29 40 08/27/19 15:00 80 27 107/58 (74) 95 08/27/19 14:30 82 27 111/61 (78) 95 08/27/19 14:00 83 30 120/57 (78) 95 08/27/19 13:32 84 28 95 Mechanical Ventilator 40 84 28 40 08/27/19 13:30 84 28 107/58 (74) 95 08/27/19 13:00 85 28 105/53 (70) 95 08/27/19 13:00 28 Mechanical Ventilator 08/27/19 12:46 28 Mechanical Ventilator 08/27/19 12:30 88 29 119/57 (77) 96 08/27/19 12:00 90 29 127/61 (83) 95 08/27/19 12:00 Mechanical Ventilator 08/27/19 12:00 84 08/27/19 12:00 40 08/27/19 12:00 29 Mechanical Ventilator 08/27/19 11:30 99.0 89 27 121/62 (81) 94 08/27/19 11:00 27 Mechanical Ventilator 08/27/19 11:00 88 28 109/55 (73) 96 08/27/19 10:30 90 27 115/60 (78) 96 08/27/19 10:00 92 28 120/61 (80) 95 08/27/19 10:00 28 Mechanical Ventilator 08/27/19 09:59 52 08/27/19 09:58 96 08/27/19 09:30 97 30 131/60 (83) 97 08/27/19 09:00 100.5 109 34 152/70 (97) 97 08/27/19 09:00 35 Mechanical Ventilator 08/27/19 08:56 109 37 40 08/27/19 08:54 109 141/68 08/27/19 08:30 110 35 141/68 (92) 94 08/27/19 08:00 110 08/27/19 08:00 115 43 153/74 (100) 93 08/27/19 08:00 47 Mechanical Ventilator 08/27/19 08:00 40 08/27/19 08:00 Mechanical Ventilator 08/27/19 07:32 111 44 95 Mechanical Ventilator 40 111 47 40 08/27/19 07:00 30 Mechanical Ventilator 40 08/27/19 06:49 107 36 150/67 (94) 94 08/27/19 06:30 100 31 08/27/19 06:30 108 46 182/86 (118) 96 08/27/19 06:00 99 45 159/73 (101) 97 08/27/19 06:00 32 Mechanical Ventilator 40 08/27/19 05:30 93 35 152/74 (100) 95 08/27/19 05:00 93 36 136/67 (90) 93 08/27/19 05:00 30 Mechanical Ventilator 40 08/27/19 04:30 96 44 175/73 (107) 96 08/27/19 04:00 98.0 96 27 172/82 (112) 97 08/27/19 04:00 Mechanical Ventilator 08/27/19 04:00 40 Mechanical Ventilator 40 08/27/19 04:00 80 08/27/19 04:00 40 08/27/19 03:30 76 28 171/72 (105) 94 08/27/19 03:30 77 30 40 08/27/19 03:00 30 Mechanical Ventilator 40 08/27/19 03:00 77 29 164/70 (101) 93 08/27/19 02:30 79 33 167/71 (103) 93 08/27/19 02:00 77 27 161/77 (105) 96 08/27/19 02:00 31 Mechanical Ventilator 40 08/27/19 01:30 78 25 122/100 (107) 97 08/27/19 01:26 78 32 98 Mechanical Ventilator 40 80 30 40 08/27/19 01:00 31 Mechanical Ventilator 40 08/27/19 01:00 78 30 100/82 (88) 95 08/27/19 00:30 78 30 152/82 (105) 95 08/27/19 00:00 Mechanical Ventilator 08/27/19 00:00 31 Mechanical Ventilator 40 08/27/19 00:00 78 08/27/19 00:00 98.0 78 31 164/77 (106) 96 08/27/19 00:00 40 08/26/19 23:30 77 31 40 08/26/19 23:30 78 32 145/77 (99) 93 08/26/19 23:00 32 Mechanical Ventilator 40 08/26/19 23:00 75 34 152/79 (103) 93 08/26/19 22:30 76 38 172/79 (110) 90 08/26/19 22:00 32 Mechanical Ventilator 40 08/26/19 22:00 75 27 152/62 (92) 98 08/26/19 21:30 77 29 149/64 (92) 97 08/26/19 21:14 72 167/72 08/26/19 21:00 30 Mechanical Ventilator 40 08/26/19 21:00 78 29 167/72 (103) 97 08/26/19 20:30 75 32 144/65 (91) 94 08/26/19 20:00 Mechanical Ventilator 08/26/19 20:00 40 08/26/19 20:00 98.2 74 26 148/67 (94) 97 08/26/19 20:00 77 08/26/19 20:00 31 Mechanical Ventilator 40 08/26/19 19:30 73 27 99 Mechanical Ventilator 40 77 28 40 08/26/19 19:30 74 28 152/71 (98) 97 08/26/19 19:00 76 26 148/68 (94) 96 08/26/19 19:00 26 Endotracheal Tube 40 Height (Feet): 5 Height (Inches): 8.00 Weight (Pounds): 160 General Appearance: other - on vent, intubated, no pressors, + fevers HEENT: normocephalic, atraumatic, anicteric, no JVD, other - oral - intubated Respiratory/Chest: crackles/rales, rhonchi - bilaterally Cardiovascular: normal rate, regular rhythm, no gallop/murmur, no JVD Abdomen: normal bowel sounds, soft, non tender, no organomegaly, non distended Genitourinary: other - + verduzco - urine clear Extremities: no cyanosis Skin: no rash Neurologic/Psychiatric: motor weakness Lymphatic: no neck adenopathy Musculoskeletal: no effusion Objective Procedure: XRAY Chest 1v - 08/23/19 - Indication: Chest pain Technique: One view of the chest Comparison: 1 1/2 hours earlier Findings: Interim placement of a right jugular central venous catheter, tip which projects at the level of the high right atrium. No gross pneumothorax. Interim endotracheal intubation, endotracheal tube tip projecting approximately 6 cm above the dalrine. Right upper lobe infiltrate is unchanged. Left retrocardiac opacification and likely left pleural effusion are unchanged. Impression: Endotracheal intubation Satisfactory placement right jugular central venous catheter, no radiographically evident complication Other stable findings as described 08/25/19 - Procedure: XRAY Chest 1v EXAM: XR Chest, 1 View CLINICAL HISTORY: INTRA-OP TECHNIQUE: Frontal view of the chest. COMPARISON: No relevant prior studies available. FINDINGS: Redemonstrated endotracheal tube, appropriately positioned, the tip projecting above the darline. Right internal jugular central venous catheter tip is again in the upper right atrium. There is no pneumothorax. Bilateral pulmonary consolidation is again noted. This is most confluent in the left midlung and right upper lobe, similar appearance to prior. 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 Chronic rib deformities as well as skeletal degenerative changes. IMPRESSION: No significant interval change in extensive bilateral airspace infiltrates. Chest x-ray - 08/26/19 - Procedure: XRAY Chest 1v Indication: Shortness of breath Technique: One view of the chest Comparison: none Findings: Bilateral diffuse infiltrates appears slightly more extensive than on the previous study. Stable satisfactory positions of endotracheal tube and right jugular central venous catheter. Gastrostomy is demonstrated. Impression: Over one day, interim slight worsening of bilateral infiltrates Other stable findings as described Microbiology Date/Time Source Procedure Growth Status 08/19/19 17:30 Blood Blood Culture - Final NO GROWTH AFTER 5 DAYS Complete 08/19/19 18:30 Nasal Nares Right MRSA Culture - Final NO METHICILLIN RESISTANT STAPH AUREUS... Complete 08/19/19 18:30 Rectum - Final NO CARBAPENEM-RESISTANT ENTEROBACTERI... Complete Laboratory Tests Test 08/27/19 04:10 08/27/19 06:44 White Blood Count 9.5 K/UL (4.8-10.8) # Red Blood Count 4.15 M/UL (4.70-6.10) L Hemoglobin 13.0 G/DL (14.2-18.0) L Hematocrit 37.8 % (42.0-52.0) L Mean Corpuscular Volume 91 FL (80-99) Mean Corpuscular Hemoglobin 31.3 PG (27.0-31.0) H Mean Corpuscular Hemoglobin Concent 34.4 G/DL (32.0-36.0) Red Cell Distribution Width 12.5 % (11.6-14.8) Platelet Count 234 K/UL (150-450) Mean Platelet Volume 6.4 FL (6.5-10.1) L Neutrophils (%) (Auto) 79.6 % (45.0-75.0) H Lymphocytes (%) (Auto) 16.8 % (20.0-45.0) L Monocytes (%) (Auto) 3.4 % (1.0-10.0) Eosinophils (%) (Auto) 0.2 % (0.0-3.0) Basophils (%) (Auto) 0.1 % (0.0-2.0) Sodium Level 142 MMOL/L (136-145) Potassium Level 3.6 MMOL/L (3.5-5.1) Chloride Level 105 MMOL/L (98-107) Carbon Dioxide Level 28 MMOL/L (21-32) Anion Gap 9 mmol/L (5-15) Blood Urea Nitrogen 15 mg/dL (7-18) Creatinine 0.9 MG/DL (0.55-1.30) Estimat Glomerular Filtration Rate > 60 mL/min (>60) Glucose Level 143 MG/DL (74-106) H Calcium Level 7.8 MG/DL (8.5-10.1) L Total Bilirubin 0.5 MG/DL (0.2-1.0) Aspartate Amino Transf (AST/SGOT) 77 U/L (15-37) H Alanine Aminotransferase (ALT/SGPT) 50 U/L (12-78) Alkaline Phosphatase 229 U/L (46-116) H Troponin I 0.158 ng/mL (0.000-0.056) Total Protein 6.9 G/DL (6.4-8.2) Albumin 1.7 G/DL (3.4-5.0) L Globulin 5.2 g/dL Albumin/Globulin Ratio 0.3 (1.0-2.7) L Vancomycin Level Trough 14.9 ug/mL (5.0-12.0) H Current Medications Medications (Trade) Dose Ordered Sig/Vanessa Route PRN Reason Start Time Stop Time Status Last Admin Dose Admin Acetaminophen (Tylenol) 650 mg EVERY 6 HOURS PRN GT Temp >100.5 08/20/19 22:00 09/19/19 21:59 08/27/19 09:30 Albuterol Sulfate (Proventil MDI) 2 puff Q6HRT INH 08/22/19 13:00 11/20/19 12:59 08/27/19 13:32 Apixaban (Eliquis) 2.5 mg BID GT 08/26/19 18:00 11/18/19 17:59 08/27/19 17:00 Chlorhexidine Gluconate (Antonella-Hex 2%) 1 applic DAILY@2000 TOPIC 08/21/19 20:00 11/19/19 19:59 08/26/19 20:27 Fentanyl Citrate 1000 mcg/Sodium Chloride 100 ml @ 0 mls/hr Q24H IV 08/26/19 12:46 09/02/19 12:45 08/26/19 13:47 Hydralazine HCl (Apresoline) 10 mg Q2H PRN IV Systolic >180 08/26/19 15:45 11/24/19 15:44 Ipratropium Collbran (Atrovent Inh) 1 puffs Q6HRT INH 08/22/19 13:00 09/21/19 12:59 08/27/19 13:32 Levetiracetam (Keppra) 1,500 mg Q12HR GT 08/20/19 21:00 09/19/19 20:59 08/27/19 08:54 Lorazepam (Ativan 2mg/ml 1ml) 0.5 mg Q4H PRN IV For Anxiety 08/26/19 12:00 09/02/19 11:59 08/27/19 04:52 Methylprednisolone Sodium Succinate (Solu-MEDROL) 40 mg EVERY 12 HOURS IVP 08/25/19 21:00 11/23/19 20:59 08/27/19 08:54 Metoprolol Tartrate (Lopressor) 50 mg Q12HR GT 08/26/19 21:00 11/24/19 11:59 08/27/19 08:54 Midazolam HCl (Versed 2mg/2ml vial) 1 mg Q2H PRN IVP agitation 08/26/19 12:45 11/24/19 12:44 08/27/19 06:44 Phenytoin (Dilantin) 250 mg DAILY GT 08/21/19 09:00 09/20/19 08:59 Future Hold Piperacillin Sod/ Tazobactam Sod 3.375 gm/Dextrose 100 ml @ 25 mls/hr EVERY 8 HOURS IVPB 08/23/19 22:00 08/28/19 21:59 08/27/19 14:00 Tamsulosin HCl (Flomax) 0.4 mg BEDTIME ORAL 08/20/19 21:00 09/19/19 20:59 08/26/19 21:13 Vancomycin HCl (Vanco rx to dose) 1 ea DAILY PRN MISC Per rx protocol 08/20/19 14:30 09/19/19 14:29 Vancomycin HCl 750 mg/Sodium Chloride 275 ml @ 183.333 mls/hr Q12H IVPB 08/25/19 20:00 08/30/19 19:59 08/27/19 08:55 Gwen Velásquez MD Aug 27, 2019 19:00
[2019-08-27] MEDS: Dyna-Hex 2% Top Sol 2oz TOPIC SCH (19:34)
--- NOTE | 2019-08-27 19:34 | NUR ---
NURSE NOTES: Ativan 0.5mg ivp was given due to pts anxiety.
--- NOTE | 2019-08-27 20:00 | NUR ---
NURSE NOTES: Fentanyl drip increased to 50 mcg/hr, pts was restless RR 50s.Suctioned tk madsen secretions moderate in amt. oral care done.
[2019-08-27] MEDS: Tamsulosin 0.4mg cap ORAL SCH (20:38)
--- NOTE | 2019-08-27 20:43 | Neurology Progress Note ---
Interim History Interim History ROS Limited/Unobtainable: Yes - pt intubated Interim History intubated, no seizures Objective Physical Exam Last Vital Signs Date Time Temp Pulse Resp B/P (MAP) Pulse Ox O2 Delivery O2 Flow Rate FiO2 08/27/19 20:38 107 123/60 08/27/19 19:30 34 99 Mechanical Ventilator 40 38 40 08/27/19 17:00 97.8 08/20/19 20:16 2.0 Laboratory Tests Test 08/27/19 04:10 08/27/19 06:44 White Blood Count 9.5 K/UL (4.8-10.8) # Red Blood Count 4.15 M/UL (4.70-6.10) L Hemoglobin 13.0 G/DL (14.2-18.0) L Hematocrit 37.8 % (42.0-52.0) L Mean Corpuscular Volume 91 FL (80-99) Mean Corpuscular Hemoglobin 31.3 PG (27.0-31.0) H Mean Corpuscular Hemoglobin Concent 34.4 G/DL (32.0-36.0) Red Cell Distribution Width 12.5 % (11.6-14.8) Platelet Count 234 K/UL (150-450) Mean Platelet Volume 6.4 FL (6.5-10.1) L Neutrophils (%) (Auto) 79.6 % (45.0-75.0) H Lymphocytes (%) (Auto) 16.8 % (20.0-45.0) L Monocytes (%) (Auto) 3.4 % (1.0-10.0) Eosinophils (%) (Auto) 0.2 % (0.0-3.0) Basophils (%) (Auto) 0.1 % (0.0-2.0) Sodium Level 142 MMOL/L (136-145) Potassium Level 3.6 MMOL/L (3.5-5.1) Chloride Level 105 MMOL/L (98-107) Carbon Dioxide Level 28 MMOL/L (21-32) Anion Gap 9 mmol/L (5-15) Blood Urea Nitrogen 15 mg/dL (7-18) Creatinine 0.9 MG/DL (0.55-1.30) Estimat Glomerular Filtration Rate > 60 mL/min (>60) Glucose Level 143 MG/DL (74-106) H Calcium Level 7.8 MG/DL (8.5-10.1) L Total Bilirubin 0.5 MG/DL (0.2-1.0) Aspartate Amino Transf (AST/SGOT) 77 U/L (15-37) H Alanine Aminotransferase (ALT/SGPT) 50 U/L (12-78) Alkaline Phosphatase 229 U/L (46-116) H Troponin I 0.158 ng/mL (0.000-0.056) Total Protein 6.9 G/DL (6.4-8.2) Albumin 1.7 G/DL (3.4-5.0) L Globulin 5.2 g/dL Albumin/Globulin Ratio 0.3 (1.0-2.7) L Vancomycin Level Trough 14.9 ug/mL (5.0-12.0) H Neurologic Exam Objective intubated, sedated, minimal withdraw cc 35 min Impression/Recommendations Problems: (1) Suspected 2019 novel coronavirus infection (2) Multi-infarct dementia (3) Uncontrolled seizures (4) History of CVA (cerebrovascular accident) (5) Acute encephalopathy (6) Aspiration pneumonia (7) Respiratory failure Diagnostic Impression icu level of care cont tre and dilmolly Monitor for seizures covid ro started atb wean off sedation when able Ivan Rose MD Aug 27, 2019 20:43
--- NOTE | 2019-08-27 21:30 | NUR ---
NURSE NOTES: Resp therapist Sylvester at bedside, repositioning ETT. Fentanyl drip up to 60mcg/hr at this time. Pt start calming down.
[2019-08-27] MEDS: Piperacillin/Tazobactam 3.375 GM in D5W 110 ML IVPB SCH (22:12)
--- NOTE | 2019-08-27 23:00 | NUR ---
NURSE NOTES: Turned q 2hrs prn with good skin care done.. No resp. distress noted. Afebrile.
[2019-08-28] VITALS (44 sets, daily range): BP systolic 112–174; BP diastolic 54–99
[2019-08-28] MEDS: Ipratropium Bromide Inhaler INH SCH ×4 (00:13→19:20)
[2019-08-28] MEDS: Albuterol 90mcg Inhaler 8gm INH SCH ×4 (00:13→19:20)
--- NOTE | 2019-08-28 04:10 | NUR ---
NURSE NOTES: Complete bath with bed changed was done.
--- NOTE | 2019-08-28 05:00 | NUR ---
NURSE NOTES: Resting well at this time. vss
[2019-08-28] MEDS: Piperacillin/Tazobactam 3.375 GM in D5W 110 ML IVPB SCH (06:00)
[2019-08-28 07:29] LABS: BASOPHILS % (AUTO) 0.3 % (0.0-2.0); HEMATOCRIT 35.7 % (42.0-52.0); HEMOGLOBIN 12.4 G/DL (14.2-18.0); MEAN CORPUSCULAR VOLUME 90 FL (80-99); MONOCYTES % (AUTO) 4.4 % (1.0-10.0); NEUTROPHILS % (AUTO) 82.3 % (45.0-75.0); PLATELET COUNT 281 K/UL (150-450); RED BLOOD COUNT 3.95 M/UL (4.70-6.10); RED CELL DISTRIBUTION WIDTH 12.5 % (11.6-14.8); WHITE BLOOD COUNT 8.5 K/UL (4.8-10.8)
--- NOTE | 2019-08-28 07:32 | NUR ---
HAND-OFF: Report given to Mery PAULSON.
--- NOTE | 2019-08-28 07:33 | NUR ---
HAND-OFF: Report given to Duane PAULSON,.
[2019-08-28 08:00] LABS: ALANINE AMINOTRANSFERASE 40 U/L (12-78); ALBUMIN 1.6 G/DL (3.4-5.0); ALBUMIN/GLOBULIN RATIO 0.3 (1.0-2.7); ALKALINE PHOSPHATASE 219 U/L (46-116); ANION GAP 10 mmol/L (5-15); ASPARTATE AMINO TRANSFERASE 64 U/L (15-37); BILIRUBIN,TOTAL 0.6 MG/DL (0.2-1.0); BLOOD UREA NITROGEN 17 mg/dL (7-18); CALCIUM 8.2 MG/DL (8.5-10.1); CARBON DIOXIDE 28 MMOL/L (21-32); CHLORIDE 108 MMOL/L (98-107); CREATININE 0.9 MG/DL (0.55-1.30); POTASSIUM 4.1 MMOL/L (3.5-5.1); SODIUM 146 MMOL/L (136-145)
--- NOTE | 2019-08-28 08:25 | NUR ---
NURSE NOTES: Report received from LORENE Seals. Pt is lying comfortably in semi fowlers with no signs of distress. Pt is non-verbal, obtunded, opens eyes to painful stimuli. Respirations even and unlabored, but tachypneic on mechanical ventilator. ETT 7.5, 21 cm @ the lip line. O2 saturation of 95% with vent settings of AC 18, VT 400, FiO2 40% and peep of 5. Pt SR with 1st degree AVB on the monitor @ 112 bpm. Temp elevated @ 100.7 axillary. All other vitals stable as documented. Right IJ running fentanyl drip @ 100 mcg with RASS of -2. Pt has sacral and left heel pressure injuries, both dressed in optifoam. Head of bed @ 30 degrees. G-tube in place running feeding @ prescribed rate. Abdomen distended with no residual on the Gtube. Swartz in place and patent, draining urine at foot of bed. Bed at lowest position, brakes engaged, siderails x3, bed alarm on, and call light within reach. Pt in stable condition at this time; will continue to monitor.
[2019-08-28] MEDS: Eliquis 2.5mg tablet GT SCH ×2 (08:56→18:17)
[2019-08-28] MEDS: levETIRAcetam 500mg/5ml Liquid GT SCH ×2 (08:56→20:39)
[2019-08-28] MEDS: Metoprolol Tartrate 50mg tab GT SCH ×2 (08:57→20:40)
[2019-08-28] MEDS: Vancomycin 750mg/NS 275ml IVPB SCH ×2 (08:57)
[2019-08-28] MEDS: Solu-MEDROL 40mg Inj IVP SCH ×2 (08:57→20:39)
--- NOTE | 2019-08-28 09:02 | Diagnostic Imaging Report ---
Indication: Shortness of breath Technique: XRAY Chest 1v Comparison: 08/26/2019 Findings: Heart size is stable. Atherosclerotic calcifications again noted in the aorta. Endotracheal tube stable and satisfactory position. Right transjugular central line has its tip in the region of the high right atrium. A gastrostomy tube is noted. There is interval worsening of aeration with increasing interstitial and patchy bilateral airspace disease. Small layering left pleural effusion not excluded. No evidence of pneumothorax. Again is evidence of prior cardiac surgery with median sternotomy and prosthetic cardiac valve. Osseous structures are stable. IMPRESSION: Interval worsening of aeration with increasing interstitial and patchy bilateral airspace disease. Findings may be on the basis of worsening CHF/pulmonary edema although multifocal pneumonia must also be considered. Endotracheal tube injection is a central line remain in place. 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
--- NOTE | 2019-08-28 09:20 | NUR ---
NURSE NOTES: 0920 --650 mg tylenol administered for 101.7 temperature axillary. Medication did not scan @ proper time.
[2019-08-28] MEDS: fentaNYL Citrate 1000 MCG in NS 100ml IV SCH (10:13)
--- NOTE | 2019-08-28 10:35 | NUR ---
NURSE NOTES: Pt has O2 saturation of 91-92%. suctioned patient and repositioned him in bed. O2 saturation continues @ 9!%. RT Dulce called and she said she will be here shortly to assess patient.
--- NOTE | 2019-08-28 10:47 | NUR ---
RADIOLOGY DEPT., CHEST X-RAY DONE.-P.DYE
[2019-08-28] MEDS: Acetaminophen 650mg/20.3ml GT PRN (10:49)
--- NOTE | 2019-08-28 11:17 | NUR ---
NURSE NOTES: Dr. Leal @ bedside. Made her aware of temperature this morning and how patient's face and chest has a lot of erythema. She ordered a one time dose of IV benadryl 25 mg.
--- NOTE | 2019-08-28 11:52 | Pulmonolgy Critical Care Note ---
Critical Care - Asmt/Plan Problems: (1) Respiratory failure (2) Suspected 2019 novel coronavirus infection (3) History of CVA (cerebrovascular accident) (4) Acute encephalopathy (5) Multi-infarct dementia (6) Uncontrolled seizures Assessment/Plan: Continue ventilatory support ---> will wean via SIMV Monitor gas exchange STRONGLY CONSIDER HHN's in line with Vent SM 40 IV BID (D4) and taper Completed 5 days of Plaquenil Vanco/Zosyn per ID Daily CRP and ferritin D/W pharmacy RE: Tociluzumab - per pharmacist on national shortage and cannot get, will continue to follow up Remdesivir limited to trial, cannot get under compassionate care Monitor volumes and renal function ICU sedation: Fent gtt for RASS -2 with PRN Versed F/U neuro recs, continue AED's Monitor LFT's TF's DVT Px: Eliquis FC, continue to discuss GOC Time Spent (Minutes): 40 Notes Reviewed: painter barrel, cardio, ID, neuro Discussed with: nurses, consultants Critical Care - Objective Last 24 Hour Vital Signs Date Time Temp Pulse Resp B/P (MAP) Pulse Ox O2 Delivery O2 Flow Rate FiO2 08/28/19 11:30 98 28 119/57 (77) 94 08/28/19 11:03 65 08/28/19 11:00 99 27 123/58 (79) 95 08/28/19 10:30 103 28 120/55 (76) 91 08/28/19 10:13 29 Mechanical Ventilator 2.0 40 08/28/19 10:00 106 30 122/59 (80) 93 08/28/19 09:30 109 30 135/64 (87) 96 08/28/19 09:00 110 30 134/63 (86) 95 08/28/19 08:57 112 137/69 08/28/19 08:30 111 29 137/67 (90) 95 08/28/19 08:00 40 08/28/19 08:00 Mechanical Ventilator 08/28/19 08:00 110 29 135/67 (89) 95 08/28/19 07:30 111 29 135/66 (89) 95 08/28/19 07:19 112 30 40 08/28/19 07:00 28 Mechanical Ventilator 40 08/28/19 07:00 114 33 150/68 (95) 94 08/28/19 06:30 116 47 174/99 (124) 98 08/28/19 06:30 110 31 08/28/19 06:00 28 Mechanical Ventilator 40 08/28/19 06:00 103 38 160/70 (100) 72 08/28/19 05:30 99 34 150/75 (100) 74 08/28/19 05:00 93 36 143/73 (96) 94 08/28/19 05:00 28 Mechanical Ventilator 40 08/28/19 04:34 85 25 40 08/28/19 04:30 86 25 121/57 (78) 94 08/28/19 04:00 90 08/28/19 04:00 28 Mechanical Ventilator 40 08/28/19 04:00 Mechanical Ventilator 08/28/19 04:00 40 08/28/19 04:00 98.4 89 25 117/54 (75) 94 08/28/19 03:30 90 26 120/57 (78) 94 08/28/19 03:30 87 25 40 08/28/19 03:00 28 Mechanical Ventilator 40 08/28/19 03:00 90 26 119/59 (79) 95 08/28/19 02:00 92 27 116/55 (75) 94 08/28/19 02:00 28 Mechanical Ventilator 40 08/28/19 01:00 96 29 121/63 (82) 94 08/28/19 01:00 25 Mechanical Ventilator 40 08/28/19 00:37 99 28 40 08/28/19 00:00 98.0 96 28 139/69 (92) 95 08/28/19 00:00 Mechanical Ventilator 08/28/19 00:00 82 08/28/19 00:00 28 Mechanical Ventilator 40 08/28/19 00:00 40 08/27/19 23:37 100 30 40 08/27/19 23:30 94 27 97 Mechanical Ventilator 40 99 29 40 08/27/19 23:30 96 27 133/71 (91) 95 08/27/19 23:00 95 27 138/67 (90) 94 08/27/19 23:00 28 Mechanical Ventilator 40 08/27/19 22:30 95 29 145/68 (93) 98 08/27/19 22:13 30 Mechanical Ventilator 40 08/27/19 22:00 96 31 148/72 (97) 97 08/27/19 21:30 102 32 153/75 (101) 98 08/27/19 21:30 50 Mechanical Ventilator 40 08/27/19 21:00 104 29 123/64 (83) 94 08/27/19 20:42 104 31 40 08/27/19 20:38 107 123/60 08/27/19 20:30 108 29 123/60 (81) 91 08/27/19 20:00 50 Mechanical Ventilator 40 08/27/19 20:00 97.9 118 54 157/85 (109) 94 08/27/19 20:00 Mechanical Ventilator 08/27/19 19:30 110 34 99 Mechanical Ventilator 40 115 38 40 08/27/19 19:30 122 48 203/99 (133) 97 08/27/19 19:00 91 57 172/81 (111) 96 08/27/19 19:00 50 Mechanical Ventilator 40 08/27/19 18:30 87 27 138/65 (89) 96 08/27/19 18:00 84 28 136/69 (91) 96 08/27/19 17:00 97.8 78 27 141/68 (92) 97 08/27/19 16:30 77 27 112/60 (77) 96 08/27/19 16:00 40 08/27/19 16:00 Mechanical Ventilator 08/27/19 16:00 79 08/27/19 16:00 75 27 108/54 (72) 96 08/27/19 15:10 79 29 40 08/27/19 15:00 80 27 107/58 (74) 95 08/27/19 14:30 82 27 111/61 (78) 95 08/27/19 14:00 83 30 120/57 (78) 95 08/27/19 13:32 84 28 95 Mechanical Ventilator 40 84 28 40 08/27/19 13:30 84 28 107/58 (74) 95 08/27/19 13:00 85 28 105/53 (70) 95 08/27/19 13:00 28 Mechanical Ventilator 08/27/19 12:46 28 Mechanical Ventilator 08/27/19 12:30 88 29 119/57 (77) 96 08/27/19 12:00 90 29 127/61 (83) 95 08/27/19 12:00 Mechanical Ventilator 08/27/19 12:00 84 08/27/19 12:00 40 08/27/19 12:00 29 Mechanical Ventilator Status: sedated - intubated Condition: critical HEENT: other - ETT OGT Neck: other - R IJ Heart: HR/BP stable Blood Sugars: BS controlled Critical Care - Subjective ROS Limited/Unobtainable: Yes ICU Day: 8 Intubation Day: 9 Interval Events: Failed SBT NAEO Condition: critical IV Access: central - R IJ EKG Rhythm: Sinus Tachycardia FI02: 65 Vent Support Breath Rate: 18 Vent Support Mode: AC Vent Tidal Volume: 400 Sputum Amount: Moderate PEEP: 5.0 PIP: 21 Secretions: Mod clear Fluids: SLIV Drips: Fent Tube Feeding Amount: 50 I&O: Intake and Output 08/27/19 08/28/19 19:00 07:00 Intake Total 930.333 ml 782 ml Output Total 505 ml 610 ml Balance 425.333 ml 172 ml Free Water 90 ml IV Total 280.333 ml 92 ml Tube Feeding 550 ml 600 ml Other 100 ml Output Urine Total 505 ml 610 ml # Bowel Movements 2 1 Subjective: REYMUNDO ET-Tube: 7.5 ET Position: 25 Labs: Laboratory Tests Test 08/28/19 06:10 White Blood Count 8.5 K/UL (4.8-10.8) Red Blood Count 3.95 M/UL (4.70-6.10) L Hemoglobin 12.4 G/DL (14.2-18.0) L Hematocrit 35.7 % (42.0-52.0) L Mean Corpuscular Volume 90 FL (80-99) Mean Corpuscular Hemoglobin 31.4 PG (27.0-31.0) H Mean Corpuscular Hemoglobin Concent 34.8 G/DL (32.0-36.0) Red Cell Distribution Width 12.5 % (11.6-14.8) Platelet Count 281 K/UL (150-450) Mean Platelet Volume 6.5 FL (6.5-10.1) Neutrophils (%) (Auto) 82.3 % (45.0-75.0) H Lymphocytes (%) (Auto) 12.0 % (20.0-45.0) L Monocytes (%) (Auto) 4.4 % (1.0-10.0) Eosinophils (%) (Auto) 1.0 % (0.0-3.0) Basophils (%) (Auto) 0.3 % (0.0-2.0) Sodium Level 146 MMOL/L (136-145) H Potassium Level 4.1 MMOL/L (3.5-5.1) Chloride Level 108 MMOL/L (98-107) H Carbon Dioxide Level 28 MMOL/L (21-32) Anion Gap 10 mmol/L (5-15) Blood Urea Nitrogen 17 mg/dL (7-18) Creatinine 0.9 MG/DL (0.55-1.30) Estimat Glomerular Filtration Rate > 60 mL/min (>60) Glucose Level 117 MG/DL (74-106) H Calcium Level 8.2 MG/DL (8.5-10.1) L Total Bilirubin 0.6 MG/DL (0.2-1.0) Aspartate Amino Transf (AST/SGOT) 64 U/L (15-37) H Alanine Aminotransferase (ALT/SGPT) 40 U/L (12-78) Alkaline Phosphatase 219 U/L (46-116) H Total Protein 6.8 G/DL (6.4-8.2) Albumin 1.6 G/DL (3.4-5.0) L Globulin 5.2 g/dL Albumin/Globulin Ratio 0.3 (1.0-2.7) L David Nash MD Aug 28, 2019 11:52
[2019-08-28] MEDS ORDERED: DiphenhydrAMINE 50mg/ml Inj IVP SCH (12:00)
--- NOTE | 2019-08-28 12:04 | Consultation ---
History of Present Illness General Date patient seen: Aug 28, 2019 Chief Complaint: Fever Reason for Consultation: seizures Present Illness HPI 84M known to me from prior presented for seizures and fever currently in ICU with abnormal labs, imaging, and exam with deterioration. surgery called toe valuate and assist with care. patient seen, chart reviewed, patient examined Allergies: Coded Allergies: No Known Allergies (Unverified , 02/29/16) Medication History Scheduled Apixaban (Eliquis), 2.5 MG PO BID, (Reported) Ascorbic Acid* (Ascorbic Acid*), 500 MG GT DAILY, (Reported) Aspirin* (Aspirin*), 81 MG ORAL DAILY, (Reported) Atorvastatin Calcium* (Atorvastatin Calcium*), 40 MG ORAL BEDTIME, (Reported) Calcium Carbonate (Calcium), 500 MG PO DAILY, (Reported) Cholecalciferol (Vitamin D3)* (Vitamin D*), 1,000 UNIT ORAL DAILY, (Reported) Docusate Sodium (Docusate Sodium), 10 MG GT DAILY, (Reported) Levetiracetam* (Levetiracetam*), 1,500 MG GT BID, (Reported) Levofloxacin (Levofloxacin*), 500 MG ORAL DAILY Lorazepam* (Ativan*), 0.5 MG ORAL THREE TIMES A DAY, (Reported) Mirtazapine* (Mirtazapine*), 7.5 MG ORAL BEDTIME, (Reported) Multivitamin (Multiple Vitamins), 1 EACH PO DAILY, (Reported) Pantoprazole* (Protonix*), 40 MG ORAL DAILY, (Reported) Phenytoin (Phenytoin*), 250 MG ORAL DAILY, (Reported) Tamsulosin Hcl (Tamsulosin Hcl*), 0.4 MG ORAL BEDTIME, (Reported) Terbinafine Hcl* (Lamisil*), 250 MG GT DAILY, (Reported) Scheduled PRN Acetaminophen* (Acetaminophen*), 650 MG ORAL Q6H PRN for Mild Pain/Temp > 100.5, (Reported) Ipratropium [place] 0.5MG/2.5ML (Ipratropium [place] 0.5MG/2.5ML), 0.5 MG HHN Q4HR PRN for Shortness of Breath, (Reported) Miscellaneous Medications Isosorbide Dinitrate (Isosorbide Dinitrate*), 30 MG ORAL, (Reported) Patient History Limited by: medical condition History Provided By: Medical Record, PMD Healthcare decision maker BRIDGETTE FITZGERALD Resuscitation status Full Code Advanced Directive on File Yes Past Medical/Surgical History Past Medical/Surgical History: (1) Multi-infarct dementia (2) Uncontrolled seizures (3) History of CVA (cerebrovascular accident) (4) Acute encephalopathy (5) Aspiration pneumonia (6) Respiratory failure (7) Suspected 2019 novel coronavirus infection (8) Decubitus skin ulcer Review of Systems ROS Narrative cannot obtain given medical condition Physical Exam General Appearance: mild distress Lines, tubes and drains: other Neck: other Respiratory/Chest: on vent Cardiovascular/Chest: tachycardia Abdomen: soft, no organomegaly, no mass, feeding tube, other Extremities: inflammation, slow capillary refill Skin Exam: warm/dry Neurologic: unresponsiveness Last 24 Hour Vital Signs Date Time Temp Pulse Resp B/P (MAP) Pulse Ox O2 Delivery O2 Flow Rate FiO2 08/28/19 11:30 98 28 119/57 (77) 94 08/28/19 11:30 98 27 40 08/28/19 11:03 65 08/28/19 11:00 99 27 123/58 (79) 95 08/28/19 10:30 103 28 120/55 (76) 91 08/28/19 10:13 29 Mechanical Ventilator 2.0 40 08/28/19 10:00 106 30 122/59 (80) 93 08/28/19 09:30 109 30 135/64 (87) 96 08/28/19 09:00 110 30 134/63 (86) 95 08/28/19 08:57 112 137/69 08/28/19 08:30 111 29 137/67 (90) 95 08/28/19 08:00 40 08/28/19 08:00 Mechanical Ventilator 08/28/19 08:00 110 29 135/67 (89) 95 08/28/19 07:30 111 29 135/66 (89) 95 08/28/19 07:19 112 30 40 08/28/19 07:00 28 Mechanical Ventilator 40 08/28/19 07:00 114 33 150/68 (95) 94 08/28/19 06:30 116 47 174/99 (124) 98 08/28/19 06:30 110 31 08/28/19 06:00 28 Mechanical Ventilator 40 08/28/19 06:00 103 38 160/70 (100) 72 08/28/19 05:30 99 34 150/75 (100) 74 08/28/19 05:00 93 36 143/73 (96) 94 08/28/19 05:00 28 Mechanical Ventilator 40 08/28/19 04:34 85 25 40 08/28/19 04:30 86 25 121/57 (78) 94 08/28/19 04:00 90 08/28/19 04:00 28 Mechanical Ventilator 40 08/28/19 04:00 Mechanical Ventilator 08/28/19 04:00 40 08/28/19 04:00 98.4 89 25 117/54 (75) 94 08/28/19 03:30 90 26 120/57 (78) 94 08/28/19 03:30 87 25 40 08/28/19 03:00 28 Mechanical Ventilator 40 08/28/19 03:00 90 26 119/59 (79) 95 08/28/19 02:00 92 27 116/55 (75) 94 08/28/19 02:00 28 Mechanical Ventilator 40 08/28/19 01:00 96 29 121/63 (82) 94 08/28/19 01:00 25 Mechanical Ventilator 40 08/28/19 00:37 99 28 40 08/28/19 00:00 98.0 96 28 139/69 (92) 95 08/28/19 00:00 Mechanical Ventilator 08/28/19 00:00 82 08/28/19 00:00 28 Mechanical Ventilator 40 08/28/19 00:00 40 08/27/19 23:37 100 30 40 08/27/19 23:30 94 27 97 Mechanical Ventilator 40 99 29 40 08/27/19 23:30 96 27 133/71 (91) 95 08/27/19 23:00 95 27 138/67 (90) 94 08/27/19 23:00 28 Mechanical Ventilator 40 08/27/19 22:30 95 29 145/68 (93) 98 08/27/19 22:13 30 Mechanical Ventilator 40 08/27/19 22:00 96 31 148/72 (97) 97 08/27/19 21:30 102 32 153/75 (101) 98 08/27/19 21:30 50 Mechanical Ventilator 40 08/27/19 21:00 104 29 123/64 (83) 94 08/27/19 20:42 104 31 40 08/27/19 20:38 107 123/60 08/27/19 20:30 108 29 123/60 (81) 91 08/27/19 20:00 50 Mechanical Ventilator 40 08/27/19 20:00 97.9 118 54 157/85 (109) 94 08/27/19 20:00 Mechanical Ventilator 08/27/19 19:30 110 34 99 Mechanical Ventilator 40 115 38 40 08/27/19 19:30 122 48 203/99 (133) 97 08/27/19 19:00 91 57 172/81 (111) 96 08/27/19 19:00 50 Mechanical Ventilator 40 08/27/19 18:30 87 27 138/65 (89) 96 08/27/19 18:00 84 28 136/69 (91) 96 08/27/19 17:00 97.8 78 27 141/68 (92) 97 08/27/19 16:30 77 27 112/60 (77) 96 08/27/19 16:00 40 08/27/19 16:00 Mechanical Ventilator 08/27/19 16:00 79 08/27/19 16:00 75 27 108/54 (72) 96 08/27/19 15:10 79 29 40 08/27/19 15:00 80 27 107/58 (74) 95 08/27/19 14:30 82 27 111/61 (78) 95 08/27/19 14:00 83 30 120/57 (78) 95 08/27/19 13:32 84 28 95 Mechanical Ventilator 40 84 28 40 08/27/19 13:30 84 28 107/58 (74) 95 08/27/19 13:00 85 28 105/53 (70) 95 08/27/19 13:00 28 Mechanical Ventilator 08/27/19 12:46 28 Mechanical Ventilator 08/27/19 12:30 88 29 119/57 (77) 96 Intake and Output 08/27/19 08/28/19 19:00 07:00 Intake Total 930.333 ml 782 ml Output Total 505 ml 610 ml Balance 425.333 ml 172 ml Free Water 90 ml IV Total 280.333 ml 92 ml Tube Feeding 550 ml 600 ml Other 100 ml Output Urine Total 505 ml 610 ml # Bowel Movements 2 1 Laboratory Tests Test 08/28/19 06:10 White Blood Count 8.5 K/UL (4.8-10.8) Red Blood Count 3.95 M/UL (4.70-6.10) L Hemoglobin 12.4 G/DL (14.2-18.0) L Hematocrit 35.7 % (42.0-52.0) L Mean Corpuscular Volume 90 FL (80-99) Mean Corpuscular Hemoglobin 31.4 PG (27.0-31.0) H Mean Corpuscular Hemoglobin Concent 34.8 G/DL (32.0-36.0) Red Cell Distribution Width 12.5 % (11.6-14.8) Platelet Count 281 K/UL (150-450) Mean Platelet Volume 6.5 FL (6.5-10.1) Neutrophils (%) (Auto) 82.3 % (45.0-75.0) H Lymphocytes (%) (Auto) 12.0 % (20.0-45.0) L Monocytes (%) (Auto) 4.4 % (1.0-10.0) Eosinophils (%) (Auto) 1.0 % (0.0-3.0) Basophils (%) (Auto) 0.3 % (0.0-2.0) Sodium Level 146 MMOL/L (136-145) H Potassium Level 4.1 MMOL/L (3.5-5.1) Chloride Level 108 MMOL/L (98-107) H Carbon Dioxide Level 28 MMOL/L (21-32) Anion Gap 10 mmol/L (5-15) Blood Urea Nitrogen 17 mg/dL (7-18) Creatinine 0.9 MG/DL (0.55-1.30) Estimat Glomerular Filtration Rate > 60 mL/min (>60) Glucose Level 117 MG/DL (74-106) H Calcium Level 8.2 MG/DL (8.5-10.1) L Total Bilirubin 0.6 MG/DL (0.2-1.0) Aspartate Amino Transf (AST/SGOT) 64 U/L (15-37) H Alanine Aminotransferase (ALT/SGPT) 40 U/L (12-78) Alkaline Phosphatase 219 U/L (46-116) H Total Protein 6.8 G/DL (6.4-8.2) Albumin 1.6 G/DL (3.4-5.0) L Globulin 5.2 g/dL Albumin/Globulin Ratio 0.3 (1.0-2.7) L Height (Feet): 5 Height (Inches): 8.00 Weight (Pounds): 159 Medications Current Medications Medications (Trade) Dose Ordered Sig/Vanessa Route PRN Reason Start Time Stop Time Status Last Admin Dose Admin Acetaminophen (Tylenol) 650 mg EVERY 6 HOURS PRN GT Temp >100.5 08/20/19 22:00 09/19/19 21:59 08/28/19 10:49 Albuterol Sulfate (Proventil MDI) 2 puff Q6HRT INH 08/22/19 13:00 11/20/19 12:59 08/28/19 08:21 Apixaban (Eliquis) 2.5 mg BID GT 08/26/19 18:00 11/18/19 17:59 08/28/19 08:56 Chlorhexidine Gluconate (Antonella-Hex 2%) 1 applic DAILY@2000 TOPIC 08/21/19 20:00 11/19/19 19:59 08/27/19 19:34 Diphenhydramine HCl (Benadryl) 25 mg ONCE IVP 08/28/19 12:00 08/28/19 13:00 Fentanyl Citrate 1000 mcg/Sodium Chloride 100 ml @ 0 mls/hr Q24H IV 08/26/19 12:46 09/02/19 12:45 08/28/19 10:13 Hydralazine HCl (Apresoline) 10 mg Q2H PRN IV Systolic >180 08/26/19 15:45 11/24/19 15:44 Ipratropium [place] (Atrovent Inh) 1 puffs Q6HRT INH 08/22/19 13:00 09/21/19 12:59 08/28/19 08:21 Levetiracetam (Keppra) 1,500 mg Q12HR GT 08/20/19 21:00 09/19/19 20:59 08/28/19 08:56 Lorazepam (Ativan 2mg/ml 1ml) 0.5 mg Q4H PRN IV For Anxiety 08/26/19 12:00 09/02/19 11:59 08/27/19 19:34 Methylprednisolone Sodium Succinate (Solu-MEDROL) 40 mg EVERY 12 HOURS IVP 08/25/19 21:00 11/23/19 20:59 08/28/19 08:57 Metoprolol Tartrate (Lopressor) 50 mg Q12HR GT 08/26/19 21:00 11/24/19 11:59 08/28/19 08:57 Midazolam HCl (Versed 2mg/2ml vial) 1 mg Q2H PRN IVP agitation 08/26/19 12:45 11/24/19 12:44 08/27/19 06:44 Phenytoin (Dilantin) 250 mg DAILY GT 08/21/19 09:00 09/20/19 08:59 Future Hold Piperacillin Sod/ Tazobactam Sod 3.375 gm/Dextrose 110 ml @ 27.5 mls/hr EVERY 8 HOURS IVPB 08/27/19 22:00 09/01/19 21:59 08/28/19 06:00 Tamsulosin HCl (Flomax) 0.4 mg BEDTIME ORAL 08/20/19 21:00 09/19/19 20:59 08/27/19 20:38 Vancomycin HCl (Vanco rx to dose) 1 ea DAILY PRN MISC Per rx protocol 08/20/19 14:30 09/19/19 14:29 Vancomycin HCl 750 mg/Sodium Chloride 275 ml @ 183.333 mls/hr Q12H IVPB 08/25/19 20:00 08/30/19 19:59 08/28/19 08:57 Assessment/Plan Problem List: (1) Decubitus skin ulcer Assessment & Plan: Patient presented on admission with Sacral DTPI. Base of wound is purple with maroon borders. Unstageable pressure injury Plantar L heel . Base of wound is necrotic with marginal erythema along borders. Non-blanching erythema R heel. Sacral DTPI now evolving since admission. Several opening within base of wound. No exudate noted. Open areas are moist and jason. Surrounding base of wound is purple with erythema along borders. Unstageable Pressure injury Plantar L heel. Base of wound is necrotic. Edges adherent to base of wound. Tx.Plan: Cleanse Sacral wound with Saline. Apply Therahoney. Apply Moisture Barrier Paste periwound. Cover with Optifoam drsg. Change every 3 days and prn. Apply Betadine to Plantar L heel. Cover with Optifoam drsg. Change every 3 days and prn. Apply Cavilon Skin Barrier R heel. Cover with Optifoam drsg. Change every 7 days and prn. Reposition at least every 2hours or as tolerated Off-load heels with pillow. Nutritional optimization will follow with recs air mattress once off isolation DAILY ESTIMATED NEEDS: Needs based on Critical care, Wounds/ 53kg abw 22-28 kcals/kg 1284-9870 total kcals 1.25-2 g protein/kg 66-106 g total protein 25-30 mL/kg 3089-1161 total fluid mLs NUTRITION DIAGNOSIS: * Swallowing difficulty R/T dysphagia as evidenced by PEG dep, s/p intubation, on GT feeding. * Increased kcal/prot needs R/T wound healing as evidenced by pt admitted w/ evolving DTPI sacral wound and unstageable lt heel wound. CURRENT TF:Glucerna 1.2 @50ml/hr x22 hrs ENTERAL NUTRITION RECOMMENDATIONS: Glucerna 1.2 @ 50ml/hr x 22 hrs (hold 1 hr before and after Dilantin QD) to provide 1100ml, 1320kcal, 66g prot, 886ml free water * Maintain Glucerna 1.2 for carb control, BGs elevated. * Hold 1 hr before and after Dilantin med * HOB over 30 degrees/ without IVF, H20 flush of 150ml q 6 hrs FOR 24 HRS TF RUN WITHOUT DILANTIN (Dilantin currently held) : okay to keep the same TF rate of Glucerna 1.2 @ 50ml/hr x 24 hrs to provide 1200ml, 1440kcal, 72g prot 966ml free water -> will still meet 100% est kcal/prot needs ADDITIONAL RECOMMENDATIONS: * Per SNF record, ht is 60", wt is 149lbs (08/14/19) Rec calibrated bedscale wt * Rec NISS w/ TF: BGs elevated, now on Solumedrol * Wound healing: add Vit C 500mg QD + Giancarlo 1pkt BID via PEG * Monitor lytes, replete as needed . ICD Codes: L89.90 - Pressure ulcer of unspecified site, unspecified stage SNOMED: 083522539 (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 - Vascular dementia without behavioral disturbance SNOMED: 88965262, 668365894 (3) Uncontrolled seizures ICD Codes: R56.9 - Unspecified convulsions SNOMED: 29550619 (4) History of CVA (cerebrovascular accident) ICD Codes: Z86.73 - Personal history of transient ischemic attack (TIA), and cerebral infarction without residual deficits SNOMED: 478686502 (5) Acute encephalopathy ICD Codes: G93.40 - Encephalopathy, unspecified SNOMED: 7375303 (6) Aspiration pneumonia Assessment & Plan: Interval worsening of aeration with increasing interstitial and patchy bilateral airspace disease. Findings may be on the basis of worsening CHF/pulmonary edema although multifocal pneumonia must also be considered. Endotracheal tube injection is a central line remain in place. 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 ICD Codes: J69.0 - Pneumonitis due to inhalation of food and vomit SNOMED: 100009661 (7) Respiratory failure ICD Codes: J96.90 - Respiratory failure, unspecified, unspecified whether with hypoxia or hypercapnia SNOMED: 560507567 (8) Suspected 2019 novel coronavirus infection Assessment & Plan: testing ICD Codes: R68.89 - Other general symptoms and signs SNOMED: 822696679 Sundeep Benavidez Aug 28, 2019 12:04
--- NOTE | 2019-08-28 12:16 | NUR ---
NURSE NOTES: Dr. Watts called about pt's erythema on the chest and face. He said to dc vanco and zosyn. He said to order diflucan, zyvox, and meropenem. Orders noted and carried out.
--- NOTE | 2019-08-28 12:32 | General Progress Note ---
Assessment/Plan Assessment/Plan: 83YO M with HTN, HLD, COPD, CAD, Seizure disorder presenting with cough and shortness of breath. In the ED, patient was found to be tachycardic (130's) and tachypnic (33) and febrile at 101.2. #Hypoxemic acute respiratory failure #Septic shock #Covid19 positive #transaminitis - likely 2/2 to above, downtrending #Fevers #?Drug reaction or ?Red Man syndrome -Appreciate ICU care -Pulm/CCM eval appreciated -Cont. contact plus droplet isolation. -Continuous lunchroom monitor. -Continue vent management per the ICU team, daily SBT -Daily labs. -s/p Plaquenil -08/25 CXR reviewed, worsening b/l infiltrates -08/27 CXR w/Interval worsening of aeration with increasing interstitial and patchy bilateral airspace disease -benadryl x1, tylenol -d/w ID, concern for drug reaction. Abx changed to Zyvox, meropenem and Diflucan -f/u on cultures from 08/26, BCx, SCx -ID and Pulm following #History of Seizure disorder: -cont Dilantin and Keppra -Neurology following #Hypokalemia - resolved -replaced -ctm, replace PRN #Accelerated HTN - resolved #HLD #CAD #Eliquis use #Atrial flutter with rapid ventricular response #elevated troponins likely 2/2 demand ischemia, down trending -MTP increased from 25 to 50 BID, hydralazine PRN -Eliquis 2.5 -Cardio consulted, recs appreciated prognosis guarded I spent 80 minutes on this patient's case, and 45 mins was dedicated to critical care. Critical Care Services performed include: Telemetry Review Hemodynamic measurement interpretation Laboratory data review and interpretation Radiology image review and interpretation Ventilator setting review, management, and adjustment Discussion of patient's care with ICU team, ICU Nursing staff and/or consulting services d/w ID regarding rash/abx. d/x Pulm CXR findings and abx changes Subjective Allergies: Coded Allergies: No Known Allergies (Unverified , 02/29/16) Subjective Follow up for acute hypoxic resp failure, septic shock, COVID-19 positive FiO2 requirements increased from 40 to 60% today. Cont. to have fevers, noted rash on face, trunk and upper extremities. Patient remains intubated at this time, unable to obtain ROS. Objective Last 24 Hour Vital Signs Date Time Temp Pulse Resp B/P (MAP) Pulse Ox O2 Delivery O2 Flow Rate FiO2 08/28/19 11:30 98 28 119/57 (77) 94 08/28/19 11:30 98 27 40 08/28/19 11:19 101.3 08/28/19 11:03 65 08/28/19 11:00 99 27 123/58 (79) 95 08/28/19 10:30 103 28 120/55 (76) 91 08/28/19 10:13 29 Mechanical Ventilator 2.0 40 08/28/19 10:00 106 30 122/59 (80) 93 08/28/19 09:30 109 30 135/64 (87) 96 08/28/19 09:00 110 30 134/63 (86) 95 08/28/19 08:57 112 137/69 08/28/19 08:30 111 29 137/67 (90) 95 08/28/19 08:00 40 08/28/19 08:00 Mechanical Ventilator 08/28/19 08:00 110 29 135/67 (89) 95 08/28/19 07:30 111 29 135/66 (89) 95 08/28/19 07:19 112 30 40 08/28/19 07:00 28 Mechanical Ventilator 40 08/28/19 07:00 114 33 150/68 (95) 94 08/28/19 06:30 116 47 174/99 (124) 98 08/28/19 06:30 110 31 08/28/19 06:00 28 Mechanical Ventilator 40 08/28/19 06:00 103 38 160/70 (100) 72 08/28/19 05:30 99 34 150/75 (100) 74 08/28/19 05:00 93 36 143/73 (96) 94 08/28/19 05:00 28 Mechanical Ventilator 40 08/28/19 04:34 85 25 40 08/28/19 04:30 86 25 121/57 (78) 94 08/28/19 04:00 90 08/28/19 04:00 28 Mechanical Ventilator 40 08/28/19 04:00 Mechanical Ventilator 08/28/19 04:00 40 08/28/19 04:00 98.4 89 25 117/54 (75) 94 08/28/19 03:30 90 26 120/57 (78) 94 08/28/19 03:30 87 25 40 08/28/19 03:00 28 Mechanical Ventilator 40 08/28/19 03:00 90 26 119/59 (79) 95 08/28/19 02:00 92 27 116/55 (75) 94 08/28/19 02:00 28 Mechanical Ventilator 40 08/28/19 01:00 96 29 121/63 (82) 94 08/28/19 01:00 25 Mechanical Ventilator 40 08/28/19 00:37 99 28 40 08/28/19 00:00 98.0 96 28 139/69 (92) 95 08/28/19 00:00 Mechanical Ventilator 08/28/19 00:00 82 08/28/19 00:00 28 Mechanical Ventilator 40 08/28/19 00:00 40 08/27/19 23:37 100 30 40 08/27/19 23:30 94 27 97 Mechanical Ventilator 40 99 29 40 08/27/19 23:30 96 27 133/71 (91) 95 08/27/19 23:00 95 27 138/67 (90) 94 08/27/19 23:00 28 Mechanical Ventilator 40 08/27/19 22:30 95 29 145/68 (93) 98 08/27/19 22:13 30 Mechanical Ventilator 40 08/27/19 22:00 96 31 148/72 (97) 97 08/27/19 21:30 102 32 153/75 (101) 98 08/27/19 21:30 50 Mechanical Ventilator 40 08/27/19 21:00 104 29 123/64 (83) 94 08/27/19 20:42 104 31 40 08/27/19 20:38 107 123/60 08/27/19 20:30 108 29 123/60 (81) 91 08/27/19 20:00 50 Mechanical Ventilator 40 08/27/19 20:00 97.9 118 54 157/85 (109) 94 08/27/19 20:00 Mechanical Ventilator 08/27/19 19:30 110 34 99 Mechanical Ventilator 40 115 38 40 08/27/19 19:30 122 48 203/99 (133) 97 08/27/19 19:00 91 57 172/81 (111) 96 08/27/19 19:00 50 Mechanical Ventilator 40 08/27/19 18:30 87 27 138/65 (89) 96 08/27/19 18:00 84 28 136/69 (91) 96 08/27/19 17:00 97.8 78 27 141/68 (92) 97 08/27/19 16:30 77 27 112/60 (77) 96 08/27/19 16:00 40 08/27/19 16:00 Mechanical Ventilator 08/27/19 16:00 79 08/27/19 16:00 75 27 108/54 (72) 96 08/27/19 15:10 79 29 40 08/27/19 15:00 80 27 107/58 (74) 95 08/27/19 14:30 82 27 111/61 (78) 95 08/27/19 14:00 83 30 120/57 (78) 95 08/27/19 13:32 84 28 95 Mechanical Ventilator 40 84 28 40 08/27/19 13:30 84 28 107/58 (74) 95 08/27/19 13:00 85 28 105/53 (70) 95 08/27/19 13:00 28 Mechanical Ventilator 08/27/19 12:46 28 Mechanical Ventilator 08/27/19 12:30 88 29 119/57 (77) 96 Intake and Output 08/27/19 08/28/19 19:00 07:00 Intake Total 930.333 ml 782 ml Output Total 505 ml 610 ml Balance 425.333 ml 172 ml Free Water 90 ml IV Total 280.333 ml 92 ml Tube Feeding 550 ml 600 ml Other 100 ml Output Urine Total 505 ml 610 ml # Bowel Movements 2 1 Laboratory Tests 08/28/19 06:10: White Blood Count 8.5, Red Blood Count 3.95L, Hemoglobin 12.4L, Hematocrit 35.7L , Mean Corpuscular Volume 90, Mean Corpuscular Hemoglobin 31.4H, Mean Corpuscular Hemoglobin Concent 34.8, Red Cell Distribution Width 12.5, Platelet Count 281, Mean Platelet Volume 6.5, Neutrophils (%) (Auto) 82.3H, Lymphocytes ( %) (Auto) 12.0L, Monocytes (%) (Auto) 4.4, Eosinophils (%) (Auto) 1.0, Basophils (%) (Auto) 0.3, Sodium Level 146H, Potassium Level 4.1, Chloride Level 108H, Carbon Dioxide Level 28, Anion Gap 10, Blood Urea Nitrogen 17, Creatinine 0.9, Estimat Glomerular Filtration Rate > 60, Glucose Level 117H, Calcium Level 8.2L, Total Bilirubin 0.6, Aspartate Amino Transf (AST/SGOT) 64H, Alanine Aminotransferase (ALT/SGPT) 40, Alkaline Phosphatase 219H, Total Protein 6.8, Albumin 1.6L, Globulin 5.2, Albumin/Globulin Ratio 0.3L Height (Feet): 5 Height (Inches): 8.00 Weight (Pounds): 159 Objective General: Intubated, appears comfortable HEENT: NCAT, dry MM CV: RRR, no murmurs, rubs, or gallops Pulm: Coarse rhonchi heard throughout lung branch, otherwise symmetrical rise and lungs b/l GI: Soft, nontender, nondistended, bowel sounds present Ext: No lower extremity edema bilaterally Skin: Maculopapular rash noted on face, trunk and UE b/l, mild erythema Liliana Leal M.D. Aug 28, 2019 12:32
--- NOTE | 2019-08-28 13:18 | Cardiac Electrophysiology PN ---
Assessment/Plan Assessment/Plan 1. Atrial flutter with rapid ventricular response. On Eliquis 2.5 mg b.i.d. and metoprolol 50 mg bid in SR WITH FIRST DEGREE AVB via G tube 2. Accelerated hypertension with blood pressure of 200. Better on metoprolol 50 mg b.i.d. and p.r.n. IV hydralazine. 3. 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 4. Respiratory failure due to COVID-19 pneumonia. On the Vent. The patient completed hydroxychloroquine. EKG QT 440 . 5. Sepsis on Solu-Medrol. Abx being changed to Meropenem 6. History of CVA. 7. Multi-infarct dementia. 8. History of seizures. NATHALY RN Subjective Subjective Intubated in ICU on the vent 45%. Covid is positive. In SR but keeps high temerature 101.7 axillary Objective Last 24 Hour Vital Signs Date Time Temp Pulse Resp B/P (MAP) Pulse Ox O2 Delivery O2 Flow Rate FiO2 08/28/19 11:30 98 28 119/57 (77) 94 08/28/19 11:30 98 27 40 08/28/19 11:19 101.3 08/28/19 11:03 65 08/28/19 11:00 99 27 123/58 (79) 95 08/28/19 10:30 103 28 120/55 (76) 91 08/28/19 10:13 29 Mechanical Ventilator 2.0 40 08/28/19 10:00 106 30 122/59 (80) 93 08/28/19 09:30 109 30 135/64 (87) 96 08/28/19 09:00 110 30 134/63 (86) 95 08/28/19 08:57 112 137/69 08/28/19 08:30 111 29 137/67 (90) 95 08/28/19 08:00 40 08/28/19 08:00 Mechanical Ventilator 08/28/19 08:00 110 29 135/67 (89) 95 08/28/19 07:30 111 29 135/66 (89) 95 08/28/19 07:19 112 30 40 08/28/19 07:00 28 Mechanical Ventilator 40 08/28/19 07:00 114 33 150/68 (95) 94 08/28/19 06:30 116 47 174/99 (124) 98 08/28/19 06:30 110 31 08/28/19 06:00 28 Mechanical Ventilator 40 08/28/19 06:00 103 38 160/70 (100) 72 08/28/19 05:30 99 34 150/75 (100) 74 08/28/19 05:00 93 36 143/73 (96) 94 08/28/19 05:00 28 Mechanical Ventilator 40 08/28/19 04:34 85 25 40 08/28/19 04:30 86 25 121/57 (78) 94 08/28/19 04:00 90 08/28/19 04:00 28 Mechanical Ventilator 40 08/28/19 04:00 Mechanical Ventilator 08/28/19 04:00 40 08/28/19 04:00 98.4 89 25 117/54 (75) 94 08/28/19 03:30 90 26 120/57 (78) 94 08/28/19 03:30 87 25 40 08/28/19 03:00 28 Mechanical Ventilator 40 08/28/19 03:00 90 26 119/59 (79) 95 08/28/19 02:00 92 27 116/55 (75) 94 08/28/19 02:00 28 Mechanical Ventilator 40 08/28/19 01:00 96 29 121/63 (82) 94 08/28/19 01:00 25 Mechanical Ventilator 40 08/28/19 00:37 99 28 40 08/28/19 00:00 98.0 96 28 139/69 (92) 95 08/28/19 00:00 Mechanical Ventilator 08/28/19 00:00 82 08/28/19 00:00 28 Mechanical Ventilator 40 08/28/19 00:00 40 08/27/19 23:37 100 30 40 08/27/19 23:30 94 27 97 Mechanical Ventilator 40 99 29 40 08/27/19 23:30 96 27 133/71 (91) 95 08/27/19 23:00 95 27 138/67 (90) 94 08/27/19 23:00 28 Mechanical Ventilator 40 08/27/19 22:30 95 29 145/68 (93) 98 08/27/19 22:13 30 Mechanical Ventilator 40 08/27/19 22:00 96 31 148/72 (97) 97 08/27/19 21:30 102 32 153/75 (101) 98 08/27/19 21:30 50 Mechanical Ventilator 40 08/27/19 21:00 104 29 123/64 (83) 94 08/27/19 20:42 104 31 40 08/27/19 20:38 107 123/60 08/27/19 20:30 108 29 123/60 (81) 91 08/27/19 20:00 50 Mechanical Ventilator 40 08/27/19 20:00 97.9 118 54 157/85 (109) 94 08/27/19 20:00 Mechanical Ventilator 08/27/19 19:30 110 34 99 Mechanical Ventilator 40 115 38 40 08/27/19 19:30 122 48 203/99 (133) 97 08/27/19 19:00 91 57 172/81 (111) 96 08/27/19 19:00 50 Mechanical Ventilator 40 08/27/19 18:30 87 27 138/65 (89) 96 08/27/19 18:00 84 28 136/69 (91) 96 08/27/19 17:00 97.8 78 27 141/68 (92) 97 08/27/19 16:30 77 27 112/60 (77) 96 08/27/19 16:00 40 08/27/19 16:00 Mechanical Ventilator 08/27/19 16:00 79 08/27/19 16:00 75 27 108/54 (72) 96 08/27/19 15:10 79 29 40 08/27/19 15:00 80 27 107/58 (74) 95 08/27/19 14:30 82 27 111/61 (78) 95 08/27/19 14:00 83 30 120/57 (78) 95 08/27/19 13:32 84 28 95 Mechanical Ventilator 40 84 28 40 08/27/19 13:30 84 28 107/58 (74) 95 Intake and Output 08/27/19 08/28/19 19:00 07:00 Intake Total 930.333 ml 782 ml Output Total 505 ml 610 ml Balance 425.333 ml 172 ml Free Water 90 ml IV Total 280.333 ml 92 ml Tube Feeding 550 ml 600 ml Other 100 ml Output Urine Total 505 ml 610 ml # Bowel Movements 2 1 Laboratory Tests Test 08/28/19 06:10 08/28/19 12:26 White Blood Count 8.5 K/UL (4.8-10.8) Red Blood Count 3.95 M/UL (4.70-6.10) L Hemoglobin 12.4 G/DL (14.2-18.0) L Hematocrit 35.7 % (42.0-52.0) L Mean Corpuscular Volume 90 FL (80-99) Mean Corpuscular Hemoglobin 31.4 PG (27.0-31.0) H Mean Corpuscular Hemoglobin Concent 34.8 G/DL (32.0-36.0) Red Cell Distribution Width 12.5 % (11.6-14.8) Platelet Count 281 K/UL (150-450) Mean Platelet Volume 6.5 FL (6.5-10.1) Neutrophils (%) (Auto) 82.3 % (45.0-75.0) H Lymphocytes (%) (Auto) 12.0 % (20.0-45.0) L Monocytes (%) (Auto) 4.4 % (1.0-10.0) Eosinophils (%) (Auto) 1.0 % (0.0-3.0) Basophils (%) (Auto) 0.3 % (0.0-2.0) Sodium Level 146 MMOL/L (136-145) H Potassium Level 4.1 MMOL/L (3.5-5.1) Chloride Level 108 MMOL/L (98-107) H Carbon Dioxide Level 28 MMOL/L (21-32) Anion Gap 10 mmol/L (5-15) Blood Urea Nitrogen 17 mg/dL (7-18) Creatinine 0.9 MG/DL (0.55-1.30) Estimat Glomerular Filtration Rate > 60 mL/min (>60) Glucose Level 117 MG/DL (74-106) H Calcium Level 8.2 MG/DL (8.5-10.1) L Total Bilirubin 0.6 MG/DL (0.2-1.0) Aspartate Amino Transf (AST/SGOT) 64 U/L (15-37) H Alanine Aminotransferase (ALT/SGPT) 40 U/L (12-78) Alkaline Phosphatase 219 U/L (46-116) H Total Protein 6.8 G/DL (6.4-8.2) Albumin 1.6 G/DL (3.4-5.0) L Globulin 5.2 g/dL Albumin/Globulin Ratio 0.3 (1.0-2.7) L Arterial Blood pH 7.434 (7.350-7.450) Arterial Blood Partial Pressure CO2 43.8 mmHg (35.0-45.0) Arterial Blood Partial Pressure O2 81.3 mmHg (75.0-100.0) Arterial Blood HCO3 28.7 mmol/L (22.0-26.0) H Arterial Blood Oxygen Saturation 96.2 % (95-100) Arterial Blood Base Excess 3.9 (-2-2) H Jag Test Positive Objective HEAD AND NECK: No JVD. Orally intubated. LUNGS: Coarse rhonchi. CARDIOVASCULAR: Irregular S1 and S2 with no gallop or murmur. ABDOMEN: Soft. EXTREMITIES: No pitting edema. Paul Robles MD Aug 28, 2019 13:18
--- NOTE | 2019-08-28 13:20 | NUR ---
NURSE NOTES: Fentanyl drip titrated down to 0 ml/hr. RT Dulce attempted weening pt on ventilator. During SIMV, RT raised the pressure support from [address] to 14, yet he was tachypneic between 45-50s with increased WOB. Pt had insufficient tidal volumes. RT stopped SIMV and changed settings to peep of 7 and Fio2 of 45%. O2 saturation 95%. Will titrate the fentanyl drip to keep RASS @ -2.
--- NOTE | 2019-08-28 14:00 | NUR ---
NURSE NOTES: Fentanyl drip titrated up to 50 mcg/hr to keep RASS @ -2.
--- NOTE | 2019-08-28 14:20 | NUR ---
CASE MANAGEMENT: REVIEW 08/28/19 SI: TROPONIN (+) . COVID-19 ISOLATE (+) . RESPIRATORY INFECTION . HX CVA . 101.3 98 28 119/57 94% ON MECHANICAL VENTILATOR FiO2 40 AC 18 TV 400 PEEP 7 H/H 12.4/35.7 NA+ 146 BG 117 CA+ 8.2 ALKP 219 ABG: HCO3 28.7 IS: IV PROPOFOL Q24HR IV ZOSYN Q8HR PO ZITHROMAX QS X4 DOSES IV VANCOMYCIN BID IV FENTANYL IV VERSED Q2HR/PRN IV SOLU-MEDROL BID LOPRESSOR GT BID PROVENTIL INH Q6HR ATROVENT INH Q6HR KEPPRA GT BID ELIQUIS GT BID FLOMAX PO QHS TYLENOL GT Q6HR SVETLANA-HEX 2% TP DQ \: INTENSIVE CARE UNIT DCP: [facility] WHEN STABLE PLAN: COVID-19- POSITIVE FROM FACILITY WEAN OFF VENT WHEN STABLE FiO2 ADJUSTED HEART RHYTHM- SR WITH FIST DEGREE AV BLOCK/ A FIB WITH RVR CONTROL FEVERS NEEDING- Tociluzumab ([facility] PER PHARMACY) WEANING OFF SEDATION WHEN ABLE
[2019-08-28] MEDS: Meropenem 1 GM in NS 55 ML IVPB SCH ×2 (14:22→22:06)
--- NOTE | 2019-08-28 16:05 | NUR ---
NURSE NOTES: Dr. Leal and Dr. Cunha made aware of pt's stomach being distended. No new orders given by either doctor
--- NOTE | 2019-08-28 18:48 | NUR ---
NURSE NOTES: Central line dressing changed. Vanco trough sent to lab
--- NOTE | 2019-08-28 19:19 | NUR ---
HAND-OFF: Report given to LORENE Seals. Pt in stable condition; plan of care endorsed.
--- NOTE | 2019-08-28 19:30 | NUR ---
NURSE NOTES: Received pt orally intubated on ac mode, sedated with Fentanyl drip at 50mcg/hr, infusing to Pts Right IJ central line,Site with drsg dry and intact. SR on the monitor, bp stable afebrile. Tolerated OGT fdg at 50 ml/hr, with very liow residuals . HOB kept elevated. On aspuiration precaution. Pts with sacral DTI with some open wounds. Applied therahoney and skin barrier to sorrounding area,, and covered with optifoam. Fole to gravity with mooderate amt/ Monitor I and O. monitor lytes. will continue to monitor.
[2019-08-28] MEDS: Dyna-Hex 2% Top Sol 2oz TOPIC SCH (20:10)
[2019-08-28] MEDS: fentaNYL Citrate 2500mcg in NS 250ml IV SCH (20:27)
[2019-08-28] MEDS: Tamsulosin 0.4mg cap ORAL SCH (20:39)
--- NOTE | 2019-08-28 21:00 | NUR ---
NURSE NOTES: Pt was agitated, RR 30-40s, and tensing. Fentany drip up to 70mcg/hr at this time.
--- NOTE | 2019-08-28 21:30 | NUR ---
NURSE NOTES: Suctioned tk beige secretions moderate in amt. Turned q 2hr prn with good skin care done.
--- NOTE | 2019-08-28 22:00 | NUR ---
NURSE NOTES: Pt still agitated and desat., Fentanyl drip increased to 90mcg/hr, o2 sat 89-90s, increased fio2 to 60%.
--- NOTE | 2019-08-28 22:05 | Neurology Progress Note ---
Interim History Interim History ROS Limited/Unobtainable: Yes Interim History no seizures Objective Physical Exam Last Vital Signs Date Time Temp Pulse Resp B/P (MAP) Pulse Ox O2 Delivery O2 Flow Rate FiO2 08/28/19 20:40 91 127/65 08/28/19 20:27 33 40 08/28/19 19:20 94 Mechanical Ventilator 08/28/19 16:00 99.8 08/28/19 10:13 2.0 Laboratory Tests Test 08/28/19 06:10 08/28/19 12:26 08/28/19 18:45 White Blood Count 8.5 K/UL (4.8-10.8) Red Blood Count 3.95 M/UL (4.70-6.10) L Hemoglobin 12.4 G/DL (14.2-18.0) L Hematocrit 35.7 % (42.0-52.0) L Mean Corpuscular Volume 90 FL (80-99) Mean Corpuscular Hemoglobin 31.4 PG (27.0-31.0) H Mean Corpuscular Hemoglobin Concent 34.8 G/DL (32.0-36.0) Red Cell Distribution Width 12.5 % (11.6-14.8) Platelet Count 281 K/UL (150-450) Mean Platelet Volume 6.5 FL (6.5-10.1) Neutrophils (%) (Auto) 82.3 % (45.0-75.0) H Lymphocytes (%) (Auto) 12.0 % (20.0-45.0) L Monocytes (%) (Auto) 4.4 % (1.0-10.0) Eosinophils (%) (Auto) 1.0 % (0.0-3.0) Basophils (%) (Auto) 0.3 % (0.0-2.0) Sodium Level 146 MMOL/L (136-145) H Potassium Level 4.1 MMOL/L (3.5-5.1) Chloride Level 108 MMOL/L (98-107) H Carbon Dioxide Level 28 MMOL/L (21-32) Anion Gap 10 mmol/L (5-15) Blood Urea Nitrogen 17 mg/dL (7-18) Creatinine 0.9 MG/DL (0.55-1.30) Estimat Glomerular Filtration Rate > 60 mL/min (>60) Glucose Level 117 MG/DL (74-106) H Calcium Level 8.2 MG/DL (8.5-10.1) L Total Bilirubin 0.6 MG/DL (0.2-1.0) Aspartate Amino Transf (AST/SGOT) 64 U/L (15-37) H Alanine Aminotransferase (ALT/SGPT) 40 U/L (12-78) Alkaline Phosphatase 219 U/L (46-116) H Total Protein 6.8 G/DL (6.4-8.2) Albumin 1.6 G/DL (3.4-5.0) L Globulin 5.2 g/dL Albumin/Globulin Ratio 0.3 (1.0-2.7) L Arterial Blood pH 7.434 (7.350-7.450) Arterial Blood Partial Pressure CO2 43.8 mmHg (35.0-45.0) Arterial Blood Partial Pressure O2 81.3 mmHg (75.0-100.0) Arterial Blood HCO3 28.7 mmol/L (22.0-26.0) H Arterial Blood Oxygen Saturation 96.2 % (95-100) Arterial Blood Base Excess 3.9 (-2-2) H Jag Test Positive Vancomycin Level Trough 14.7 ug/mL (5.0-12.0) H Neurologic Exam Objective intubated, sedated, minimal withdraw cc 35 min Impression/Recommendations Problems: (1) Suspected 2019 novel coronavirus infection (2) Multi-infarct dementia (3) Uncontrolled seizures (4) History of CVA (cerebrovascular accident) (5) Acute encephalopathy (6) Aspiration pneumonia (7) Respiratory failure Diagnostic Impression icu level of care cont tre and macario Monitor for seizures covid ro started atb wean off sedation when able Ivan Rose MD Aug 28, 2019 22:05
--- NOTE | 2019-08-28 23:00 | NUR ---
NURSE NOTES: Pt still agitated, increased Diprivan drip to 100mcg/hr, now pts 02 sat >92%. Will continue to monitor.
[2019-08-29] VITALS (44 sets, daily range): BP systolic 115–162; BP diastolic 53–80
--- NOTE | 2019-08-29 01:00 | NUR ---
NURSE NOTES: Pt had another soft brownish stool. cleaned up pt.
--- NOTE | 2019-08-29 03:00 | NUR ---
NURSE NOTES: Complete bath with bed changed done. Pt tolerating fdg.
--- NOTE | 2019-08-29 05:00 | NUR ---
NURSE NOTES: Decreased fentanyl drip to 80%. for possible weaning today.
--- NOTE | 2019-08-29 06:00 | NUR ---
NURSE NOTES: No resp. distress noted. vss.
[2019-08-29] MEDS: Meropenem 1 GM in NS 55 ML IVPB SCH ×3 (06:24→22:36)
[2019-08-29] MEDS: Albuterol 90mcg Inhaler 8gm INH SCH ×3 (07:00→20:00)
[2019-08-29] MEDS: Ipratropium Bromide Inhaler INH SCH ×3 (07:00→20:00)
--- NOTE | 2019-08-29 07:43 | NUR ---
HAND-OFF: Report given to Henny PAULSON.
--- NOTE | 2019-08-29 08:44 | General Progress Note ---
Assessment/Plan Assessment/Plan: 83YO M with HTN, HLD, COPD, CAD, Seizure disorder presenting with cough and shortness of breath. In the ED, patient was found to be tachycardic (130's) and tachypnic (33) and febrile at 101.2. #Hypoxemic acute respiratory failure #Septic shock #Covid19 positive #transaminitis - likely 2/2 to above, downtrending #Fevers #Drug reaction/Red Man syndrome - resolved -Appreciate ICU care -Pulm/CCM eval appreciated -Cont. contact plus droplet isolation. 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 -Continue vent management per the ICU team, daily SBT -s/p Plaquenil -08/25 CXR reviewed, worsening b/l infiltrates -08/27 CXR w/Interval worsening of aeration with increasing interstitial and patchy bilateral airspace disease -08/26 BCx NGTD -08/26 SCx GPC -ID: Zyvox, meropenem and Diflucan -ID and Pulm following #Abdominal distension -per nurse pt w/2 good BMs -KUB ordered #History of Seizure disorder: -cont Dilantin and Keppra -Neurology following #Hypokalemia - resolved -replaced -ctm, replace PRN #Accelerated HTN - resolved #HLD #CAD #Eliquis use #Atrial flutter with rapid ventricular response #elevated troponins likely 2/2 demand ischemia, down trending -MTP 50 BID, hydralazine PRN -Eliquis 2.5 -Cardio consulted, recs appreciated #Sacral Decubitus Ulcer -general sx/wound care following -recs appreciated prognosis guarded I spent 71 minutes on this patient's case, and 38 mins was dedicated to critical care. Critical Care Services performed include: Telemetry Review Hemodynamic measurement interpretation Laboratory data review and interpretation Radiology image review and interpretation Ventilator setting review, management, and adjustment Discussion of patient's care with ICU team, ICU Nursing staff and/or consulting services d/w RN mae and BM's d/w Cardio telemonitor/VS Subjective Allergies: Coded Allergies: No Known Allergies (Unverified , 02/29/16) Subjective Follow up for acute hypoxic resp failure, septic shock, COVID-19 positive Remains intubated, abx changed due to rash yesterday. Rash improved. pt w/2 loose BMs yesterday. Objective Last 24 Hour Vital Signs Date Time Temp Pulse Resp B/P (MAP) Pulse Ox O2 Delivery O2 Flow Rate FiO2 08/29/19 07:00 28 Mechanical Ventilator 60 08/29/19 07:00 90 27 127/61 (83) 94 08/29/19 06:30 94 28 08/29/19 06:30 89 28 132/66 (88) 93 08/29/19 06:00 90 27 124/62 (82) 94 08/29/19 06:00 28 Mechanical Ventilator 80 08/29/19 05:30 91 31 125/61 (82) 93 08/29/19 05:21 85 22 40 08/29/19 05:00 92 27 115/59 (77) 92 08/29/19 05:00 26 Mechanical Ventilator 80 08/29/19 04:30 90 28 122/62 (82) 93 08/29/19 04:00 99 08/29/19 04:00 45.0 60 08/29/19 04:00 30 Mechanical Ventilator 60 08/29/19 04:00 Mechanical Ventilator 08/29/19 04:00 99.0 91 26 122/68 (86) 93 08/29/19 03:30 93 27 119/67 (84) 93 08/29/19 03:16 88 26 40 08/29/19 03:00 91 27 125/60 (81) 93 08/29/19 03:00 28 Mechanical Ventilator 60 08/29/19 02:00 30 Mechanical Ventilator 60 08/29/19 02:00 91 27 123/69 (87) 94 08/29/19 01:30 91 27 124/68 (86) 94 08/29/19 01:03 82 25 95 Mechanical Ventilator 40 83 25 40 08/29/19 01:00 30 Mechanical Ventilator 60 08/29/19 01:00 93 27 130/70 (90) 95 08/29/19 00:30 94 28 134/64 (87) 95 08/29/19 00:00 Mechanical Ventilator 08/29/19 00:00 45.0 60 08/29/19 00:00 30 Mechanical Ventilator 45 08/29/19 00:00 98.2 96 29 132/71 (91) 94 08/29/19 00:00 94 08/28/19 23:30 99 31 140/65 (90) 93 08/28/19 23:00 102 32 154/67 (96) 96 08/28/19 23:00 30 Mechanical Ventilator 60 08/28/19 22:50 85 24 40 08/28/19 22:30 103 32 148/76 (100) 95 08/28/19 22:00 32 Mechanical Ventilator 55 08/28/19 22:00 98 32 151/70 (97) 96 08/28/19 21:30 97 30 147/65 (92) 94 08/28/19 21:00 30 Mechanical Ventilator 45 08/28/19 21:00 94 31 130/59 (82) 92 08/28/19 20:40 91 127/65 08/28/19 20:30 90 32 127/65 (85) 92 08/28/19 20:27 33 40 08/28/19 20:00 98.0 87 34 125/60 (81) 92 08/28/19 20:00 Mechanical Ventilator 08/28/19 20:00 45.0 50 08/28/19 20:00 90 08/28/19 19:30 85 31 124/59 (80) 95 08/28/19 19:20 92 32 94 Mechanical Ventilator 40 90 30 40 08/28/19 19:00 87 32 116/55 (75) 93 08/28/19 18:30 85 31 127/59 (81) 92 08/28/19 18:00 83 31 119/57 (77) 94 08/28/19 17:00 84 32 119/59 (79) 95 08/28/19 16:30 82 32 117/61 (79) 96 08/28/19 16:00 99.8 86 33 115/60 (78) 96 08/28/19 16:00 84 08/28/19 16:00 Mechanical Ventilator 08/28/19 15:36 88 33 40 08/28/19 15:30 87 32 112/56 (74) 95 08/28/19 15:00 89 32 118/58 (78) 95 08/28/19 14:30 90 32 118/59 (78) 95 08/28/19 14:00 89 33 117/62 (80) 94 08/28/19 14:00 28 Mechanical Ventilator 45 08/28/19 13:30 93 34 117/67 (84) 96 08/28/19 13:20 45 08/28/19 13:00 92 34 120/60 (80) 96 08/28/19 13:00 45 08/28/19 12:30 45 08/28/19 12:30 93 28 135/67 (89) 97 08/28/19 12:00 Mechanical Ventilator 08/28/19 12:00 98 08/28/19 12:00 30 Mechanical Ventilator 45 08/28/19 12:00 65 08/28/19 12:00 100.2 96 29 120/57 (78) 94 08/28/19 11:40 28 Mechanical Ventilator 45 08/28/19 11:30 98 28 119/57 (77) 94 08/28/19 11:30 98 27 40 08/28/19 11:19 101.3 08/28/19 11:03 65 08/28/19 11:00 99 27 123/58 (79) 95 08/28/19 10:30 103 28 120/55 (76) 91 08/28/19 10:13 29 Mechanical Ventilator 2.0 40 08/28/19 10:00 106 30 122/59 (80) 93 08/28/19 09:30 109 30 135/64 (87) 96 08/28/19 09:00 110 30 134/63 (86) 95 08/28/19 08:57 112 137/69 Intake and Output 08/28/19 08/29/19 19:00 07:00 Intake Total 1122.5 ml 905 ml Output Total 610 ml 750 ml Balance 512.5 ml 155 ml Free Water 200 ml 150 ml IV Total 322.5 ml 155 ml Tube Feeding 600 ml 600 ml Output Urine Total 610 ml 750 ml # Bowel Movements 3 Laboratory Tests 08/28/19 12:26: Arterial Blood pH 7.434, Arterial Blood Partial Pressure CO2 43.8, Arterial Blood Partial Pressure O2 81.3, Arterial Blood HCO3 28.7H, Arterial Blood Oxygen Saturation 96.2, Arterial Blood Base Excess 3.9H, Jag Test Positive 08/28/19 18:45: Vancomycin Level Trough 14.7H Height (Feet): 5 Height (Inches): 8.00 Weight (Pounds): 161 Objective General: Intubated, appears comfortable HEENT: NCAT, dry MM CV: RRR, no murmurs, rubs, or gallops Pulm: Coarse rhonchi heard throughout lung branch, otherwise symmetrical rise and lungs b/l GI: soft, appears distended Ext: No lower extremity edema bilaterally, heels wrapped in bandages Skin: Maculopapular rash on face/trunk/UE improved Liliana Leal M.D. Aug 29, 2019 08:44
[2019-08-29] MEDS: Solu-MEDROL 40mg Inj IVP SCH ×2 (10:21→20:52)
[2019-08-29] MEDS: Eliquis 2.5mg tablet GT SCH ×2 (10:21→18:00)
[2019-08-29] MEDS: Metoprolol Tartrate 50mg tab GT SCH ×2 (10:21→20:53)
[2019-08-29] MEDS: levETIRAcetam 500mg/5ml Liquid GT SCH ×2 (10:21→20:51)
[2019-08-29] MEDS: fentaNYL Citrate 2500mcg in NS 250ml IV SCH (10:22)
--- NOTE | 2019-08-29 11:00 | NUR ---
NURSE NOTES: Pt was seen by Dr Leal. notified regarding pt's distended abdomen and hard to touch. 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 Order received for KUB to follow up.
[2019-08-29 11:19] LABS: HEMATOCRIT 33.6 % (42.0-52.0); HEMOGLOBIN 11.6 G/DL (14.2-18.0); MEAN CORPUSCULAR VOLUME 91 FL (80-99); PLATELET COUNT 303 K/UL (150-450); RED BLOOD COUNT 3.69 M/UL (4.70-6.10); RED CELL DISTRIBUTION WIDTH 12.5 % (11.6-14.8); WHITE BLOOD COUNT 9.9 K/UL (4.8-10.8)
--- NOTE | 2019-08-29 11:40 | Cardiac Electrophysiology PN ---
Assessment/Plan Assessment/Plan 1. Atrial flutter with rapid ventricular response. On Eliquis 2.5 mg bid, metoprolol 50 mg bid. In SR WITH FIRST DEGREE AVB 2. Accelerated hypertension with blood pressure of 200. Better on metoprolol 50 mg b.i.d. and p.r.n. IV hydralazine. 3. 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 4. Respiratory failure due to COVID-19 pneumonia. On the Vent. Completed hydroxychloroquine. EKG QT 440 . 5. Sepsis on Solu-Medrol and Meropenem 6. History of CVA. 7. Multi-infarct dementia. 8. History of seizures. DW RN Subjective Subjective Intubated in ICU on the vent 60% fio2 in isolation as Covid is positive. In SR but still febrile. Off presors Objective Last 24 Hour Vital Signs Date Time Temp Pulse Resp B/P (MAP) Pulse Ox O2 Delivery O2 Flow Rate FiO2 08/29/19 10:52 99.0 08/29/19 10:22 34 Mechanical Ventilator 45.0 40 08/29/19 10:21 98 127/61 08/29/19 09:05 98 34 94 Mechanical Ventilator 40 90 28 40 08/29/19 07:00 28 Mechanical Ventilator 60 08/29/19 07:00 90 28 94 Mechanical Ventilator 40 90 28 40 08/29/19 07:00 90 27 127/61 (83) 94 08/29/19 06:30 94 28 08/29/19 06:30 89 28 132/66 (88) 93 08/29/19 06:00 90 27 124/62 (82) 94 08/29/19 06:00 28 Mechanical Ventilator 80 08/29/19 05:30 91 31 125/61 (82) 93 08/29/19 05:21 85 22 40 08/29/19 05:00 92 27 115/59 (77) 92 08/29/19 05:00 26 Mechanical Ventilator 80 08/29/19 04:30 90 28 122/62 (82) 93 08/29/19 04:00 99 08/29/19 04:00 45.0 60 08/29/19 04:00 30 Mechanical Ventilator 60 08/29/19 04:00 Mechanical Ventilator 08/29/19 04:00 99.0 91 26 122/68 (86) 93 08/29/19 03:30 93 27 119/67 (84) 93 08/29/19 03:16 88 26 40 08/29/19 03:00 91 27 125/60 (81) 93 08/29/19 03:00 28 Mechanical Ventilator 60 08/29/19 02:00 30 Mechanical Ventilator 60 08/29/19 02:00 91 27 123/69 (87) 94 08/29/19 01:30 91 27 124/68 (86) 94 08/29/19 01:03 82 25 95 Mechanical Ventilator 40 83 25 40 08/29/19 01:00 30 Mechanical Ventilator 60 08/29/19 01:00 93 27 130/70 (90) 95 08/29/19 00:30 94 28 134/64 (87) 95 08/29/19 00:00 Mechanical Ventilator 08/29/19 00:00 45.0 60 08/29/19 00:00 30 Mechanical Ventilator 45 08/29/19 00:00 98.2 96 29 132/71 (91) 94 08/29/19 00:00 94 08/28/19 23:30 99 31 140/65 (90) 93 08/28/19 23:00 102 32 154/67 (96) 96 08/28/19 23:00 30 Mechanical Ventilator 60 08/28/19 22:50 85 24 40 08/28/19 22:30 103 32 148/76 (100) 95 08/28/19 22:00 32 Mechanical Ventilator 55 08/28/19 22:00 98 32 151/70 (97) 96 08/28/19 21:30 97 30 147/65 (92) 94 08/28/19 21:00 30 Mechanical Ventilator 45 08/28/19 21:00 94 31 130/59 (82) 92 08/28/19 20:40 91 127/65 08/28/19 20:30 90 32 127/65 (85) 92 08/28/19 20:27 33 40 08/28/19 20:00 98.0 87 34 125/60 (81) 92 08/28/19 20:00 Mechanical Ventilator 08/28/19 20:00 45.0 50 08/28/19 20:00 90 08/28/19 19:30 85 31 124/59 (80) 95 08/28/19 19:20 92 32 94 Mechanical Ventilator 40 90 30 40 08/28/19 19:00 87 32 116/55 (75) 93 08/28/19 18:30 85 31 127/59 (81) 92 08/28/19 18:00 83 31 119/57 (77) 94 08/28/19 17:00 84 32 119/59 (79) 95 08/28/19 16:30 82 32 117/61 (79) 96 08/28/19 16:00 99.8 86 33 115/60 (78) 96 08/28/19 16:00 84 08/28/19 16:00 Mechanical Ventilator 08/28/19 15:36 88 33 40 08/28/19 15:30 87 32 112/56 (74) 95 08/28/19 15:00 89 32 118/58 (78) 95 08/28/19 14:30 90 32 118/59 (78) 95 08/28/19 14:00 89 33 117/62 (80) 94 08/28/19 14:00 28 Mechanical Ventilator 45 08/28/19 13:30 93 34 117/67 (84) 96 08/28/19 13:20 45 08/28/19 13:00 92 34 120/60 (80) 96 08/28/19 13:00 45 08/28/19 12:30 45 08/28/19 12:30 93 28 135/67 (89) 97 08/28/19 12:00 Mechanical Ventilator 08/28/19 12:00 98 08/28/19 12:00 30 Mechanical Ventilator 45 08/28/19 12:00 65 08/28/19 12:00 100.2 96 29 120/57 (78) 94 08/28/19 11:40 28 Mechanical Ventilator 45 Intake and Output 08/28/19 08/29/19 19:00 07:00 Intake Total 1122.5 ml 905 ml Output Total 610 ml 750 ml Balance 512.5 ml 155 ml Free Water 200 ml 150 ml IV Total 322.5 ml 155 ml Tube Feeding 600 ml 600 ml Output Urine Total 610 ml 750 ml # Bowel Movements 3 Laboratory Tests Test 08/28/19 12:26 08/28/19 18:45 08/29/19 10:30 Arterial Blood pH 7.434 (7.350-7.450) Arterial Blood Partial Pressure CO2 43.8 mmHg (35.0-45.0) Arterial Blood Partial Pressure O2 81.3 mmHg (75.0-100.0) Arterial Blood HCO3 28.7 mmol/L (22.0-26.0) H Arterial Blood Oxygen Saturation 96.2 % (95-100) Arterial Blood Base Excess 3.9 (-2-2) H Jag Test Positive Vancomycin Level Trough 14.7 ug/mL (5.0-12.0) H White Blood Count 9.9 K/UL (4.8-10.8) Red Blood Count 3.69 M/UL (4.70-6.10) L Hemoglobin 11.6 G/DL (14.2-18.0) L Hematocrit 33.6 % (42.0-52.0) L Mean Corpuscular Volume 91 FL (80-99) Mean Corpuscular Hemoglobin 31.5 PG (27.0-31.0) H Mean Corpuscular Hemoglobin Concent 34.5 G/DL (32.0-36.0) Red Cell Distribution Width 12.5 % (11.6-14.8) Platelet Count 303 K/UL (150-450) Mean Platelet Volume 7.3 FL (6.5-10.1) Neutrophils (%) (Auto) % (45.0-75.0) Lymphocytes (%) (Auto) % (20.0-45.0) Monocytes (%) (Auto) % (1.0-10.0) Eosinophils (%) (Auto) % (0.0-3.0) Basophils (%) (Auto) % (0.0-2.0) Neutrophils % (Manual) Pending Lymphocytes % (Manual) Pending Platelet Estimate Pending Platelet Morphology Pending Sodium Level Pending Potassium Level Pending Chloride Level Pending Carbon Dioxide Level Pending Blood Urea Nitrogen Pending Creatinine Pending Estimat Glomerular Filtration Rate Pending Glucose Level Pending Calcium Level Pending Microbiology Date/Time Source Procedure Growth Status 08/27/19 11:45 Blood Blood Culture - Preliminary NO GROWTH AFTER 24 HOURS Resulted 08/27/19 14:00 Sputum Gram Stain - Final Resulted 08/27/19 14:00 Sputum Culture - Preliminary Staphylococcus Aureus Resulted Objective HEAD AND NECK: No JVD. Orally intubated. LUNGS: Coarse rhonchi. CARDIOVASCULAR: Irregular S1 and S2 with no gallop or murmur. ABDOMEN: Soft. EXTREMITIES: No pitting edema. Paul Robles MD Aug 29, 2019 11:39
[2019-08-29 11:47] LABS: ANION GAP 9 mmol/L (5-15); BLOOD UREA NITROGEN 21 mg/dL (7-18); CALCIUM 8.4 MG/DL (8.5-10.1); CARBON DIOXIDE 29 MMOL/L (21-32); CHLORIDE 108 MMOL/L (98-107); CREATININE 0.8 MG/DL (0.55-1.30); SODIUM 145 MMOL/L (136-145)
--- NOTE | 2019-08-29 12:19 | NUR ---
CASE MANAGEMENT: REVIEW 08/29/19 SI: TROPONIN (+) . COVID-19 ISOLATE (+) . RESPIRATORY INFECTION . HX CVA . SEIZURE PRECAUTIONS 100.8 90 27 128/64 94% ON MECHANICAL VENTILATOR FiO2 60 AC 18 TV 400 PEEP 5 H/H 11.6 BG 147 CA+ 8.4 IS:IV ZYVOX BID IV MEROPENEM TID IV DIFLUCAN QD IV FENTANYL QD IV SOLU-MEDROL 40mg BID LOPRESSOR GT BID PROVENTIL INH Q6HR ATROVENT INH Q6HR KEPPRA GT BID ELIQUIS GT BID FLOMAX PO QHS TYLENOL GT Q6HR SVETLANA-HEX 2% TP DQ \: INTENSIVE CARE UNIT DCP: [facility] WHEN STABLE PLAN: COVID-19- POSITIVE FROM FACILITY CONTROL FEVERS ADJUSTED IV ABX
--- NOTE | 2019-08-29 12:27 | Pulmonolgy Critical Care Note ---
Critical Care - Asmt/Plan Problems: (1) Respiratory failure (2) Suspected 2019 novel coronavirus infection (3) History of CVA (cerebrovascular accident) (4) Acute encephalopathy (5) Multi-infarct dementia (6) Uncontrolled seizures Assessment/Plan: Continue ventilatory support ---> will wean via SIMV Monitor gas exchange STRONGLY CONSIDER HHN's in line with Vent Dec SM to 30 IV BID (D5) and taper Completed 5 days of Plaquenil Vanco/Zosyn per ID Daily CRP and ferritin D/W pharmacy RE: Tociluzumab - per pharmacist on national shortage and cannot get, will continue to follow up Remdesivir limited to trial, cannot get under compassionate care Monitor volumes and renal function ICU sedation: Fent gtt for RASS -2 with PRN Versed F/U neuro recs, continue AED's Monitor LFT's TF's DVT Px: Eliquis FC, continue to discuss GOC Critical Care - Objective Last 24 Hour Vital Signs Date Time Temp Pulse Resp B/P (MAP) Pulse Ox O2 Delivery O2 Flow Rate FiO2 08/29/19 12:00 Mechanical Ventilator 08/29/19 12:00 99 33 160/74 (102) 95 08/29/19 12:00 60 08/29/19 11:30 100 31 162/74 (103) 97 08/29/19 11:00 106 38 155/80 (105) 97 08/29/19 11:00 100 31 60 08/29/19 10:52 99.0 08/29/19 10:30 103 39 161/75 (103) 98 08/29/19 10:22 34 Mechanical Ventilator 45.0 40 08/29/19 10:21 98 127/61 08/29/19 10:00 98 39 144/75 (98) 96 08/29/19 09:30 95 37 145/65 (91) 96 08/29/19 09:05 98 34 60 08/29/19 09:00 90 26 134/61 (85) 96 08/29/19 08:30 90 28 134/67 (89) 95 08/29/19 08:00 60 08/29/19 08:00 Mechanical Ventilator 08/29/19 08:00 100.8 90 27 128/64 (85) 94 08/29/19 07:00 28 Mechanical Ventilator 60 08/29/19 07:00 90 28 94 Mechanical Ventilator 60 90 28 60 08/29/19 07:00 90 27 127/61 (83) 94 08/29/19 06:30 94 28 08/29/19 06:30 89 28 132/66 (88) 93 08/29/19 06:00 90 27 124/62 (82) 94 08/29/19 06:00 28 Mechanical Ventilator 80 08/29/19 05:30 91 31 125/61 (82) 93 08/29/19 05:21 85 22 40 08/29/19 05:00 92 27 115/59 (77) 92 08/29/19 05:00 26 Mechanical Ventilator 80 08/29/19 04:30 90 28 122/62 (82) 93 08/29/19 04:00 99 08/29/19 04:00 45.0 60 08/29/19 04:00 30 Mechanical Ventilator 60 08/29/19 04:00 Mechanical Ventilator 08/29/19 04:00 99.0 91 26 122/68 (86) 93 08/29/19 03:30 93 27 119/67 (84) 93 08/29/19 03:16 88 26 40 08/29/19 03:00 91 27 125/60 (81) 93 08/29/19 03:00 28 Mechanical Ventilator 60 08/29/19 02:00 30 Mechanical Ventilator 60 08/29/19 02:00 91 27 123/69 (87) 94 08/29/19 01:30 91 27 124/68 (86) 94 08/29/19 01:03 82 25 95 Mechanical Ventilator 40 83 25 40 08/29/19 01:00 30 Mechanical Ventilator 60 08/29/19 01:00 93 27 130/70 (90) 95 08/29/19 00:30 94 28 134/64 (87) 95 08/29/19 00:00 Mechanical Ventilator 08/29/19 00:00 45.0 60 08/29/19 00:00 30 Mechanical Ventilator 45 08/29/19 00:00 98.2 96 29 132/71 (91) 94 08/29/19 00:00 94 08/28/19 23:30 99 31 140/65 (90) 93 08/28/19 23:00 102 32 154/67 (96) 96 08/28/19 23:00 30 Mechanical Ventilator 60 08/28/19 22:50 85 24 40 08/28/19 22:30 103 32 148/76 (100) 95 08/28/19 22:00 32 Mechanical Ventilator 55 08/28/19 22:00 98 32 151/70 (97) 96 08/28/19 21:30 97 30 147/65 (92) 94 08/28/19 21:00 30 Mechanical Ventilator 45 08/28/19 21:00 94 31 130/59 (82) 92 08/28/19 20:40 91 127/65 08/28/19 20:30 90 32 127/65 (85) 92 08/28/19 20:27 33 40 08/28/19 20:00 98.0 87 34 125/60 (81) 92 08/28/19 20:00 Mechanical Ventilator 08/28/19 20:00 45.0 50 08/28/19 20:00 90 08/28/19 19:30 85 31 124/59 (80) 95 08/28/19 19:20 92 32 94 Mechanical Ventilator 40 90 30 40 08/28/19 19:00 87 32 116/55 (75) 93 08/28/19 18:30 85 31 127/59 (81) 92 08/28/19 18:00 83 31 119/57 (77) 94 08/28/19 17:00 84 32 119/59 (79) 95 08/28/19 16:30 82 32 117/61 (79) 96 08/28/19 16:00 99.8 86 33 115/60 (78) 96 08/28/19 16:00 84 08/28/19 16:00 Mechanical Ventilator 08/28/19 15:36 88 33 40 08/28/19 15:30 87 32 112/56 (74) 95 08/28/19 15:00 89 32 118/58 (78) 95 08/28/19 14:30 90 32 118/59 (78) 95 08/28/19 14:00 89 33 117/62 (80) 94 08/28/19 14:00 28 Mechanical Ventilator 45 08/28/19 13:30 93 34 117/67 (84) 96 08/28/19 13:20 45 08/28/19 13:00 92 34 120/60 (80) 96 08/28/19 13:00 45 08/28/19 12:30 45 08/28/19 12:30 93 28 135/67 (89 97 Status: sedated - intubated Condition: critical HEENT: atraumatic, normocephalic Neck: other - R IJ Heart: HR/BP stable Micro: Microbiology Date/Time Source Procedure Growth Status 08/27/19 11:45 Blood Blood Culture - Preliminary NO GROWTH AFTER 24 HOURS Resulted 08/27/19 14:00 Sputum Gram Stain - Final Resulted 08/27/19 14:00 Sputum Culture - Preliminary Staphylococcus Aureus Resulted Blood Sugars: BS controlled Critical Care - Subjective ROS Limited/Unobtainable: Yes ICU Day: 9 Intubation Day: 10 Interval Events: Inc O2 needs, SIMV not done NAEO o/w Condition: critical IV Access: central EKG Rhythm: Sinus Tachycardia FI02: 60 Vent Support Breath Rate: 18 Vent Support Mode: AC Vent Tidal Volume: 400 Sputum Amount: Moderate PEEP: 7.0 PIP: 27 Tube Feeding Amount: 50 I&O: Intake and Output 08/28/19 08/29/19 19:00 07:00 Intake Total 1122.5 ml 905 ml Output Total 610 ml 750 ml Balance 512.5 ml 155 ml Free Water 200 ml 150 ml IV Total 322.5 ml 155 ml Tube Feeding 600 ml 600 ml Output Urine Total 610 ml 750 ml # Bowel Movements 3 Subjective: REYMUNDO ET-Tube: 7.5 ET Position: 25 Labs: Laboratory Tests Test 08/28/19 18:45 08/29/19 10:30 Vancomycin Level Trough 14.7 ug/mL (5.0-12.0) H White Blood Count 9.9 K/UL (4.8-10.8) Red Blood Count 3.69 M/UL (4.70-6.10) L Hemoglobin 11.6 G/DL (14.2-18.0) L Hematocrit 33.6 % (42.0-52.0) L Mean Corpuscular Volume 91 FL (80-99) Mean Corpuscular Hemoglobin 31.5 PG (27.0-31.0) H Mean Corpuscular Hemoglobin Concent 34.5 G/DL (32.0-36.0) Red Cell Distribution Width 12.5 % (11.6-14.8) Platelet Count 303 K/UL (150-450) Mean Platelet Volume 7.3 FL (6.5-10.1) Neutrophils (%) (Auto) % (45.0-75.0) Lymphocytes (%) (Auto) % (20.0-45.0) Monocytes (%) (Auto) % (1.0-10.0) Eosinophils (%) (Auto) % (0.0-3.0) Basophils (%) (Auto) % (0.0-2.0) Neutrophils % (Manual) Pending Lymphocytes % (Manual) Pending Platelet Estimate Pending Platelet Morphology Pending Sodium Level 145 MMOL/L (136-145) Potassium Level 4.0 MMOL/L (3.5-5.1) Chloride Level 108 MMOL/L (98-107) H Carbon Dioxide Level 29 MMOL/L (21-32) Anion Gap 9 mmol/L (5-15) Blood Urea Nitrogen 21 mg/dL (7-18) H Creatinine 0.8 MG/DL (0.55-1.30) Estimat Glomerular Filtration Rate > 60 mL/min (>60) Glucose Level 147 MG/DL (74-106) H Calcium Level 8.4 MG/DL (8.5-10.1) David Aarna MD Aug 29, 2019 12:27
--- NOTE | 2019-08-29 13:00 | NUR ---
RESPIRATORY NOTES Per doctor's orders, the vent settings were changed to SIMV: 20RR, 400Vt, PS 10, PEEP+7. After 10-15mins, PT had become tachypneic; with respiratory rates ranging between 40-50bpm. PT was then placed back on previous settings. Upon doing so, PT's respiratory rate decreased back down to 30-35bpm with a SaO2 of 93%. Charge Nurse, Marcela, was informed. Will continue to monitor PT.
--- NOTE | 2019-08-29 14:45 | Surgery Progress Note ---
Surgery Progress Note Subjective Additional Comments labs noted ill appearing distended kub ordered +BM Objective Last 24 Hour Vital Signs Date Time Temp Pulse Resp B/P (MAP) Pulse Ox O2 Delivery O2 Flow Rate FiO2 08/29/19 13:03 102 35 93 Mechanical Ventilator 60 102 35 60 08/29/19 12:00 Mechanical Ventilator 08/29/19 12:00 99 33 160/74 (102) 95 08/29/19 12:00 60 08/29/19 12:00 99 08/29/19 11:30 100 31 162/74 (103) 97 08/29/19 11:00 106 38 155/80 (105) 97 08/29/19 11:00 100 31 60 08/29/19 10:52 99.0 08/29/19 10:30 103 39 161/75 (103) 98 08/29/19 10:22 34 Mechanical Ventilator 45.0 40 08/29/19 10:21 98 127/61 08/29/19 10:00 98 39 144/75 (98) 96 08/29/19 09:30 95 37 145/65 (91) 96 08/29/19 09:05 98 34 60 08/29/19 09:00 90 26 134/61 (85) 96 08/29/19 08:30 90 28 134/67 (89) 95 08/29/19 08:00 90 08/29/19 08:00 60 08/29/19 08:00 Mechanical Ventilator 08/29/19 08:00 100.8 90 27 128/64 (85) 94 08/29/19 07:00 28 Mechanical Ventilator 60 08/29/19 07:00 90 28 94 Mechanical Ventilator 60 90 28 60 08/29/19 07:00 90 27 127/61 (83) 94 08/29/19 06:30 94 28 08/29/19 06:30 89 28 132/66 (88) 93 08/29/19 06:00 90 27 124/62 (82) 94 08/29/19 06:00 28 Mechanical Ventilator 80 08/29/19 05:30 91 31 125/61 (82) 93 08/29/19 05:21 85 22 40 08/29/19 05:00 92 27 115/59 (77) 92 08/29/19 05:00 26 Mechanical Ventilator 80 08/29/19 04:30 90 28 122/62 (82) 93 08/29/19 04:00 99 08/29/19 04:00 45.0 60 08/29/19 04:00 30 Mechanical Ventilator 60 08/29/19 04:00 Mechanical Ventilator 08/29/19 04:00 99.0 91 26 122/68 (86) 93 08/29/19 03:30 93 27 119/67 (84) 93 08/29/19 03:16 88 26 40 08/29/19 03:00 91 27 125/60 (81) 93 08/29/19 03:00 28 Mechanical Ventilator 60 08/29/19 02:00 30 Mechanical Ventilator 60 08/29/19 02:00 91 27 123/69 (87) 94 08/29/19 01:30 91 27 124/68 (86) 94 08/29/19 01:03 82 25 95 Mechanical Ventilator 40 83 25 40 08/29/19 01:00 30 Mechanical Ventilator 60 08/29/19 01:00 93 27 130/70 (90) 95 08/29/19 00:30 94 28 134/64 (87) 95 08/29/19 00:00 Mechanical Ventilator 08/29/19 00:00 45.0 60 08/29/19 00:00 30 Mechanical Ventilator 45 08/29/19 00:00 98.2 96 29 132/71 (91) 94 08/29/19 00:00 94 08/28/19 23:30 99 31 140/65 (90) 93 08/28/19 23:00 102 32 154/67 (96) 96 08/28/19 23:00 30 Mechanical Ventilator 60 08/28/19 22:50 85 24 40 08/28/19 22:30 103 32 148/76 (100) 95 08/28/19 22:00 32 Mechanical Ventilator 55 08/28/19 22:00 98 32 151/70 (97) 96 08/28/19 21:30 97 30 147/65 (92) 94 08/28/19 21:00 30 Mechanical Ventilator 45 08/28/19 21:00 94 31 130/59 (82) 92 08/28/19 20:40 91 127/65 08/28/19 20:30 90 32 127/65 (85) 92 08/28/19 20:27 33 40 08/28/19 20:00 98.0 87 34 125/60 (81) 92 4/15/20 20:00 Mechanical Ventilator 08/28/19 20:00 45.0 50 08/28/19 20:00 90 08/28/19 19:30 85 31 124/59 (80) 95 08/28/19 19:20 92 32 94 Mechanical Ventilator 40 90 30 40 08/28/19 19:00 87 32 116/55 (75) 93 08/28/19 18:30 85 31 127/59 (81) 92 08/28/19 18:00 83 31 119/57 (77) 94 08/28/19 17:00 84 32 119/59 (79) 95 08/28/19 16:30 82 32 117/61 (79) 96 08/28/19 16:00 99.8 86 33 115/60 (78) 96 08/28/19 16:00 84 08/28/19 16:00 Mechanical Ventilator 08/28/19 15:36 88 33 40 08/28/19 15:30 87 32 112/56 (74) 95 08/28/19 15:00 89 32 118/58 (78) 95 I&O Intake and Output 08/28/19 08/29/19 19:00 07:00 Intake Total 1122.5 ml 905 ml Output Total 610 ml 750 ml Balance 512.5 ml 155 ml Free Water 200 ml 150 ml IV Total 322.5 ml 155 ml Tube Feeding 600 ml 600 ml Output Urine Total 610 ml 750 ml # Bowel Movements 3 Dressing: saturated Wound: other Drains: other Cardiovascular: RSR Respiratory: decreased breath sounds Abdomen: soft, distended, decreased bowel sounds Extremities: no tenderness, no cyanosis Laboratory Tests Test 08/28/19 18:45 08/29/19 10:30 Vancomycin Level Trough 14.7 ug/mL (5.0-12.0) H White Blood Count 9.9 K/UL (4.8-10.8) Red Blood Count 3.69 M/UL (4.70-6.10) L Hemoglobin 11.6 G/DL (14.2-18.0) L Hematocrit 33.6 % (42.0-52.0) L Mean Corpuscular Volume 91 FL (80-99) Mean Corpuscular Hemoglobin 31.5 PG (27.0-31.0) H Mean Corpuscular Hemoglobin Concent 34.5 G/DL (32.0-36.0) Red Cell Distribution Width 12.5 % (11.6-14.8) Platelet Count 303 K/UL (150-450) Mean Platelet Volume 7.3 FL (6.5-10.1) Neutrophils (%) (Auto) % (45.0-75.0) Lymphocytes (%) (Auto) % (20.0-45.0) Monocytes (%) (Auto) % (1.0-10.0) Eosinophils (%) (Auto) % (0.0-3.0) Basophils (%) (Auto) % (0.0-2.0) Differential Total Cells Counted 100 Neutrophils % (Manual) 82 % (45-75) H Lymphocytes % (Manual) 12 % (20-45) L Monocytes % (Manual) 4 % (1-10) Eosinophils % (Manual) 0 % (0-3) Basophils % (Manual) 2 % (0-2) Band Neutrophils 0 % (0-8) Nucleated Red Blood Cells 1 /100 WBC Platelet Estimate Adequate Platelet Morphology Normal Red Blood Cell Morphology Sodium Level 145 MMOL/L (136-145) Potassium Level 4.0 MMOL/L (3.5-5.1) Chloride Level 108 MMOL/L (98-107) H Carbon Dioxide Level 29 MMOL/L (21-32) Anion Gap 9 mmol/L (5-15) Blood Urea Nitrogen 21 mg/dL (7-18) H Creatinine 0.8 MG/DL (0.55-1.30) Estimat Glomerular Filtration Rate > 60 mL/min (>60) Glucose Level 147 MG/DL (74-106) H Calcium Level 8.4 MG/DL (8.5-10.1) L Plan Problems: (1) Decubitus skin ulcer Assessment & Plan: Patient presented on admission with Sacral DTPI. Base of wound is purple with maroon borders. Unstageable pressure injury Plantar L heel . Base of wound is necrotic with marginal erythema along borders. Non-blanching erythema R heel. Sacral DTPI now evolving since admission. Several opening within base of wound. No exudate noted. Open areas are moist and jason. Surrounding base of wound is purple with erythema along borders. Unstageable Pressure injury Plantar L heel. Base of wound is necrotic. Edges adherent to base of wound. Tx.Plan: Cleanse Sacral wound with Saline. Apply Therahoney. Apply Moisture Barrier Paste periwound. Cover with Optifoam drsg. Change every 3 days and prn. Apply Betadine to Plantar L heel. Cover with Optifoam drsg. Change every 3 days and prn. Apply Cavilon Skin Barrier R heel. Cover with Optifoam drsg. Change every 7 days and prn. Reposition at least every 2hours or as tolerated Off-load heels with pillow. Nutritional optimization will follow with recs air mattress once off isolation DAILY ESTIMATED NEEDS: Needs based on Critical care, Wounds/ 53kg abw 22-28 kcals/kg 5353-1455 total kcals 1.25-2 g protein/kg 66-106 g total protein 25-30 mL/kg 5434-5525 total fluid mLs NUTRITION DIAGNOSIS: * Swallowing difficulty R/T dysphagia as evidenced by PEG dep, s/p intubation, on GT feeding. * Increased kcal/prot needs R/T wound healing as evidenced by pt admitted w/ evolving DTPI sacral wound and unstageable lt heel wound. CURRENT TF:Glucerna 1.2 @50ml/hr x22 hrs ENTERAL NUTRITION RECOMMENDATIONS: Glucerna 1.2 @ 50ml/hr x 22 hrs (hold 1 hr before and after Dilantin QD) to provide 1100ml, 1320kcal, 66g prot, 886ml free water * Maintain Glucerna 1.2 for carb control, BGs elevated. * Hold 1 hr before and after Dilantin med * HOB over 30 degrees/ without IVF, H20 flush of 150ml q 6 hrs FOR 24 HRS TF RUN WITHOUT DILANTIN (Dilantin currently held) : okay to keep the same TF rate of Glucerna 1.2 @ 50ml/hr x 24 hrs to provide 1200ml, 1440kcal, 72g prot 966ml free water -> will still meet 100% est kcal/prot needs ADDITIONAL RECOMMENDATIONS: * Per SNF record, ht is 60", wt is 149lbs (08/14/19) Rec calibrated bedscale wt * Rec NISS w/ TF: BGs elevated, now on Solumedrol * Wound healing: add Vit C 500mg QD + Giancarlo 1pkt BID via PEG * Monitor lytes, replete as needed . (2) Multi-infarct dementia (3) Uncontrolled seizures (4) History of CVA (cerebrovascular accident) (5) Acute encephalopathy (6) Aspiration pneumonia Assessment & Plan: Interval worsening of aeration with increasing interstitial and patchy bilateral airspace disease. Findings may be on the basis of worsening CHF/pulmonary edema although multifocal pneumonia must also be considered. Endotracheal tube injection is a central line remain in place. 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 (7) Respiratory failure (8) Suspected 2019 novel coronavirus infection Assessment & Plan: testing (9) Abdominal distension Assessment & Plan: pending KUB +BM ulikely obstruction will monitor Sundeep Benavidez Aug 29, 2019 14:45
--- NOTE | 2019-08-29 15:12 | NUR ---
RADIOLOGY DEPT., ABDOMEN X-RAY DONE.-P.DYE
--- NOTE | 2019-08-29 15:17 | Diagnostic Imaging Report ---
Indication: Abdominal pain and distention Technique: Supine view of the abdomen Comparison: none Findings: There are some mildly dilated small bowel loops in the lower midabdomen. A more dilated gas-filled segment of bowel is seen to the right of midline. Uncertain as to whether this represents a very dilated small bowel loop or an upper limits of normal caliber segment of sigmoid colon. There is a gastrostomy noted. There is a Swartz catheter noted. Impression: Mildly dilated small bowel loops in the lower midabdomen, nonspecific, could indicate ileus versus early obstructive changes Focal segment of either very dilated small bowel or mildly prominent colon in the right upper pelvis, favor the latter Gastrostomy and Swartz catheter incidentally noted
--- NOTE | 2019-08-29 19:30 | NUR ---
NURSE NOTES: Received pt with Fentanyl drip at 200mcg/hr, pt sedated at this time. Readjusted back to 80mcg/hr to attained level of RASS score-2, as documented in spreadsheet by RN Henny, pt orally intubated, On ac mode, SR on the monitor bp stable afebrile, Tolerated GT fdg at 50ml/hr, with 4ml residuals HOB kept elevated, on aspiration precaution. Pts abdomen was distended, KUB were done, Dr Benavidez , Dr Leal and Dr Velásquez was aware with pts result pts had multiple bowel movements with soft brownish stool. Cleaned up pt. Slightly febrile 100F, cooling measures were done. Pt has Open wound sacral area covered with optifoam and left heel unstageable with optifoam clean and dry. Suctioned tk madsen secretions moderate in amt. Oral care done..Will continue to monitor.
--- NOTE | 2019-08-29 19:30 | NUR ---
HAND-OFF: Report given to Bozena PAULSON. Endorsed plan of care.
[2019-08-29] MEDS: Dyna-Hex 2% Top Sol 2oz TOPIC SCH (20:17)
--- NOTE | 2019-08-29 20:31 | Infectious Diseases Prog Note ---
Assessment/Plan Assessment/Plan ASSESSMENT AND PLAN: 1. covid-19 virus infection, pna, sepsis, fevers, vent, respiratory failure staph aureus pna - sensitivities pending rash - ? vancomycin, ? zosyn - abx held ? bowel obstruction, ? ileus fungemia risk - abx changed to zyvox, meropenem and diflucan - f/u on labs and chest x-ray, f/u kub, f/u on cultures - supportive care, ivf, vent - d/w RN - remains critical - communicated with Dr. Leal - surgery f/u - d/w pharmacy 2. Respiratory failure, on vent. 3. History of hyperlipidemia. 4. History of hypertension. 5. Atherosclerotic heart disease. 6. CAD. 7. COPD. 8. Dementia. 9. Nonverbal at baseline. 10. History of seizures. 11. No known drug allergies. 12. Social history negative. 13. Family history noncontributory. 14. MAR was noted. 15. Case discussed with RN. 16. Continue treatment per primary consultants. Subjective Constitutional: Reports: fever, other - on vent HEENT: Reports: congestion Respiratory: Reports: shortness of breath Cardiovascular: Reports: other - no pressors Gastrointestinal/Abdominal: Denies: nausea, vomiting, diarrhea Genitourinary: Reports: other - + verduzco Neurologic: Reports: weakness, other - sedated Psychiatric: Reports: other - NA Skin: Reports: rash - rash better Hematologic: Denies: bleeding Musculoskeletal: Reports: other - NA Allergies: Coded Allergies: No Known Allergies (Unverified , 02/29/16) Objective Vital Signs Last 24 Hour Vital Signs Date Time Temp Pulse Resp B/P (MAP) Pulse Ox O2 Delivery O2 Flow Rate FiO2 08/29/19 19:00 18 Mechanical Ventilator 08/29/19 19:00 95 32 134/68 (90) 98 08/29/19 18:30 101 35 127/75 (92) 98 08/29/19 18:00 101 36 146/75 (98) 98 08/29/19 18:00 18 Mechanical Ventilator 08/29/19 17:30 96 30 140/70 (93) 93 08/29/19 17:27 97 30 60 08/29/19 17:00 94 30 134/71 (92) 93 08/29/19 17:00 18 Mechanical Ventilator 08/29/19 16:00 60 08/29/19 16:00 Mechanical Ventilator 08/29/19 16:00 100.3 97 30 130/70 (90) 93 08/29/19 16:00 18 Mechanical Ventilator 08/29/19 16:00 18 Mechanical Ventilator 08/29/19 16:00 101 08/29/19 15:30 99 31 136/73 (94) 93 08/29/19 15:00 101 32 145/70 (95) 93 08/29/19 15:00 18 Mechanical Ventilator 08/29/19 15:00 102 32 60 08/29/19 14:30 101 32 142/70 (94) 94 08/29/19 14:00 102 31 144/73 (96) 94 08/29/19 14:00 18 Mechanical Ventilator 08/29/19 13:30 102 33 146/76 (99) 94 08/29/19 13:03 102 35 93 Mechanical Ventilator 60 102 35 60 08/29/19 13:00 18 Mechanical Ventilator 08/29/19 13:00 102 34 149/79 (102) 93 08/29/19 12:00 Mechanical Ventilator 08/29/19 12:00 99 33 160/74 (102) 95 08/29/19 12:00 20 Mechanical Ventilator 08/29/19 12:00 60 08/29/19 12:00 99 08/29/19 11:30 100 31 162/74 (103) 97 08/29/19 11:00 106 38 155/80 (105) 97 08/29/19 11:00 24 Mechanical Ventilator 08/29/19 11:00 100 31 60 08/29/19 10:52 99.0 08/29/19 10:30 103 39 161/75 (103) 98 08/29/19 10:22 34 Mechanical Ventilator 45.0 40 08/29/19 10:21 98 127/61 08/29/19 10:00 22 Mechanical Ventilator 08/29/19 10:00 98 39 144/75 (98) 96 08/29/19 09:30 95 37 145/65 (91) 96 08/29/19 09:05 98 34 60 08/29/19 09:00 90 26 134/61 (85) 96 08/29/19 09:00 24 Mechanical Ventilator 08/29/19 08:30 90 28 134/67 (89) 95 08/29/19 08:00 90 08/29/19 08:00 60 08/29/19 08:00 20 Mechanical Ventilator 08/29/19 08:00 Mechanical Ventilator 08/29/19 08:00 100.8 90 27 128/64 (85) 94 08/29/19 07:00 28 Mechanical Ventilator 60 08/29/19 07:00 90 28 94 Mechanical Ventilator 60 90 28 60 08/29/19 07:00 90 27 127/61 (83) 94 08/29/19 06:30 94 28 08/29/19 06:30 89 28 132/66 (88) 93 08/29/19 06:00 90 27 124/62 (82) 94 08/29/19 06:00 28 Mechanical Ventilator 80 08/29/19 05:30 91 31 125/61 (82) 93 08/29/19 05:21 85 22 40 08/29/19 05:00 92 27 115/59 (77) 92 08/29/19 05:00 26 Mechanical Ventilator 80 08/29/19 04:30 90 28 122/62 (82) 93 08/29/19 04:00 99 08/29/19 04:00 45.0 60 08/29/19 04:00 30 Mechanical Ventilator 60 08/29/19 04:00 Mechanical Ventilator 08/29/19 04:00 99.0 91 26 122/68 (86) 93 08/29/19 03:30 93 27 119/67 (84) 93 08/29/19 03:16 88 26 40 08/29/19 03:00 91 27 125/60 (81) 93 08/29/19 03:00 28 Mechanical Ventilator 60 08/29/19 02:00 30 Mechanical Ventilator 60 08/29/19 02:00 91 27 123/69 (87) 94 08/29/19 01:30 91 27 124/68 (86) 94 08/29/19 01:03 82 25 95 Mechanical Ventilator 40 83 25 40 08/29/19 01:00 30 Mechanical Ventilator 60 08/29/19 01:00 93 27 130/70 (90) 95 08/29/19 00:30 94 28 134/64 (87) 95 08/29/19 00:00 Mechanical Ventilator 08/29/19 00:00 45.0 60 08/29/19 00:00 30 Mechanical Ventilator 45 08/29/19 00:00 98.2 96 29 132/71 (91) 94 08/29/19 00:00 94 08/28/19 23:30 99 31 140/65 (90) 93 08/28/19 23:00 102 32 154/67 (96) 96 08/28/19 23:00 30 Mechanical Ventilator 60 08/28/19 22:50 85 24 40 08/28/19 22:30 103 32 148/76 (100) 95 08/28/19 22:00 32 Mechanical Ventilator 55 08/28/19 22:00 98 32 151/70 (97) 96 08/28/19 21:30 97 30 147/65 (92) 94 08/28/19 21:00 30 Mechanical Ventilator 45 08/28/19 21:00 94 31 130/59 (82) 92 08/28/19 20:40 91 127/65 08/28/19 20:30 90 32 127/65 (85) 92 08/28/19 20:27 33 40 Height (Feet): 5 Height (Inches): 8.00 Weight (Pounds): 161 General Appearance: no acute distress HEENT: normocephalic, atraumatic, anicteric Respiratory/Chest: crackles/rales, rhonchi - bilaterally Cardiovascular: normal rate, regular rhythm, no gallop/murmur, no JVD Abdomen: hypoactive bowel sounds, distended Genitourinary: other - + verduzco - urine slt cloudy Extremities: no cyanosis Skin: no rash Neurologic/Psychiatric: motor weakness, other - lethargic, weak, on vent Lymphatic: no neck adenopathy Musculoskeletal: no effusion Objective Procedure: XRAY Chest 1v - 08/23/19 - Indication: Chest pain Technique: One view of the chest Comparison: 1 1/2 hours earlier Findings: Interim placement of a right jugular central venous catheter, tip which projects at the level of the high right atrium. No gross pneumothorax. Interim endotracheal intubation, endotracheal tube tip projecting approximately 6 cm above the darline. Right upper lobe infiltrate is unchanged. Left retrocardiac opacification and likely left pleural effusion are unchanged. Impression: Endotracheal intubation Satisfactory placement right jugular central venous catheter, no radiographically evident complication Other stable findings as described 08/25/19 - Procedure: XRAY Chest 1v EXAM: XR Chest, 1 View CLINICAL HISTORY: INTRA-OP TECHNIQUE: Frontal view of the chest. COMPARISON: No relevant prior studies available. FINDINGS: Redemonstrated endotracheal tube, appropriately positioned, the tip projecting above the darline. Right internal jugular central venous catheter tip is again in the upper right atrium. There is no pneumothorax. Bilateral pulmonary consolidation is again noted. This is most confluent in the left midlung and right upper lobe, similar appearance to prior. 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 Chronic rib deformities as well as skeletal degenerative changes. IMPRESSION: No significant interval change in extensive bilateral airspace infiltrates. Chest x-ray - 08/26/19 - Procedure: XRAY Chest 1v Indication: Shortness of breath Technique: One view of the chest Comparison: none Findings: Bilateral diffuse infiltrates appears slightly more extensive than on the previous study. Stable satisfactory positions of endotracheal tube and right jugular central venous catheter. Gastrostomy is demonstrated. Impression: Over one day, interim slight worsening of bilateral infiltrates Other stable findings as described KUB - 08/29/19 - Findings: There are some mildly dilated small bowel loops in the lower midabdomen. A more dilated gas-filled segment of bowel is seen to the right of midline. Uncertain as to whether this represents a very dilated small bowel loop or an upper limits of normal caliber segment of sigmoid colon. There is a gastrostomy noted. There is a Verduzco catheter noted. Impression: Mildly dilated small bowel loops in the lower midabdomen, nonspecific, could indicate ileus versus early obstructive changes Focal segment of either very dilated small bowel or mildly prominent colon in the right upper pelvis, favor the latter Gastrostomy and Verduzco catheter incidentally noted Chest x-ray 08/28/19 - Findings: Heart size is stable. Atherosclerotic calcifications again noted in the aorta. Endotracheal tube stable and satisfactory position. Right transjugular central line has its tip in the region of the high right atrium. A gastrostomy tube is noted. There is interval worsening of aeration with increasing interstitial and patchy bilateral airspace disease. Small layering left pleural effusion not excluded. No evidence of pneumothorax. Again is evidence of prior cardiac surgery with median sternotomy and prosthetic cardiac valve. Osseous structures are stable. IMPRESSION: Interval worsening of aeration with increasing interstitial and patchy bilateral airspace disease. Findings may be on the basis of worsening CHF/pulmonary edema although multifocal pneumonia must also be considered. Endotracheal tube injection is a central line remain in place. 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 Microbiology Date/Time Source Procedure Growth Status 08/27/19 11:45 Blood Blood Culture - Preliminary NO GROWTH AFTER 24 HOURS Resulted 08/27/19 14:00 Sputum Gram Stain - Final Resulted 08/27/19 14:00 Sputum Culture - Preliminary Staphylococcus Aureus Resulted 08/19/19 18:30 Rectum - Final NO CARBAPENEM-RESISTANT ENTEROBACTERI... Complete Microbiology Date/Time Source Procedure Growth Status 08/27/19 11:45 Blood Blood Culture - Preliminary NO GROWTH AFTER 24 HOURS Resulted 08/27/19 14:00 Sputum Gram Stain - Final Resulted 08/27/19 14:00 Sputum Culture - Preliminary Staphylococcus Aureus Resulted Laboratory Tests Test 08/29/19 10:30 White Blood Count 9.9 K/UL (4.8-10.8) Red Blood Count 3.69 M/UL (4.70-6.10) L Hemoglobin 11.6 G/DL (14.2-18.0) L Hematocrit 33.6 % (42.0-52.0) L Mean Corpuscular Volume 91 FL (80-99) Mean Corpuscular Hemoglobin 31.5 PG (27.0-31.0) H Mean Corpuscular Hemoglobin Concent 34.5 G/DL (32.0-36.0) Red Cell Distribution Width 12.5 % (11.6-14.8) Platelet Count 303 K/UL (150-450) Mean Platelet Volume 7.3 FL (6.5-10.1) Neutrophils (%) (Auto) % (45.0-75.0) Lymphocytes (%) (Auto) % (20.0-45.0) Monocytes (%) (Auto) % (1.0-10.0) Eosinophils (%) (Auto) % (0.0-3.0) Basophils (%) (Auto) % (0.0-2.0) Differential Total Cells Counted 100 Neutrophils % (Manual) 82 % (45-75) H Lymphocytes % (Manual) 12 % (20-45) L Monocytes % (Manual) 4 % (1-10) Eosinophils % (Manual) 0 % (0-3) Basophils % (Manual) 2 % (0-2) Band Neutrophils 0 % (0-8) Nucleated Red Blood Cells 1 /100 WBC Platelet Estimate Adequate Platelet Morphology Normal Red Blood Cell Morphology Sodium Level 145 MMOL/L (136-145) Potassium Level 4.0 MMOL/L (3.5-5.1) Chloride Level 108 MMOL/L (98-107) H Carbon Dioxide Level 29 MMOL/L (21-32) Anion Gap 9 mmol/L (5-15) Blood Urea Nitrogen 21 mg/dL (7-18) H Creatinine 0.8 MG/DL (0.55-1.30) Estimat Glomerular Filtration Rate > 60 mL/min (>60) Glucose Level 147 MG/DL (74-106) H Calcium Level 8.4 MG/DL (8.5-10.1) L Current Medications Medications (Trade) Dose Ordered Sig/Vanessa Route PRN Reason Start Time Stop Time Status Last Admin Dose Admin Acetaminophen (Tylenol) 650 mg EVERY 6 HOURS PRN GT Temp >100.5 08/20/19 22:00 09/19/19 21:59 08/28/19 10:49 Albuterol Sulfate (Proventil MDI) 2 puff Q6HRT INH 08/22/19 13:00 11/20/19 12:59 08/29/19 13:05 Apixaban (Eliquis) 2.5 mg BID GT 08/26/19 18:00 11/18/19 17:59 08/29/19 18:00 Chlorhexidine Gluconate (Antonella-Hex 2%) 1 applic DAILY@2000 TOPIC 08/21/19 20:00 11/19/19 19:59 08/28/19 20:10 Fentanyl Citrate 2500 mcg/Sodium Chloride 250 ml @ 0 mls/hr Q24H IV 08/28/19 20:00 09/04/19 19:59 08/29/19 10:22 Fluconazole/ Sodium Chloride 200 ml @ 100 mls/hr Q24H IV 08/28/19 13:30 09/04/19 13:29 08/29/19 14:50 Hydralazine HCl (Apresoline) 10 mg Q2H PRN IV Systolic >180 08/26/19 15:45 11/24/19 15:44 Ipratropium [place] (Atrovent Inh) 1 puffs Q6HRT INH 08/22/19 13:00 09/21/19 12:59 08/29/19 13:05 Levetiracetam (Keppra) 1,500 mg Q12HR GT 08/20/19 21:00 09/19/19 20:59 08/29/19 10:21 Linezolid (Zyvox) 600 mg EVERY 12 HOURS ORAL 08/28/19 21:00 09/02/19 20:59 08/29/19 10:21 Lorazepam (Ativan 2mg/ml 1ml) 0.5 mg Q4H PRN IV For Anxiety 08/26/19 12:00 09/02/19 11:59 08/27/19 19:34 Meropenem 1 gm/ Sodium Chloride 55 ml @ 110 mls/hr Q8HR IVPB 08/28/19 14:00 09/02/19 13:59 08/29/19 14:49 Methylprednisolone Sodium Succinate (Solu-MEDROL) 30 mg EVERY 12 HOURS IVP 08/29/19 21:00 11/23/19 20:59 Metoprolol Tartrate (Lopressor) 50 mg Q12HR GT 08/26/19 21:00 11/24/19 11:59 08/29/19 10:21 Midazolam HCl (Versed 2mg/2ml vial) 1 mg Q2H PRN IVP agitation 08/26/19 12:45 11/24/19 12:44 08/27/19 06:44 Phenytoin (Dilantin) 250 mg DAILY GT 08/21/19 09:00 09/20/19 08:59 Future Hold Tamsulosin HCl (Flomax) 0.4 mg BEDTIME ORAL 08/20/19 21:00 09/19/19 20:59 08/28/19 20:39 Gwen Velásquez MD Aug 29, 2019 20:31
[2019-08-29] MEDS: Tamsulosin 0.4mg cap ORAL SCH (20:52)
--- NOTE | 2019-08-29 21:30 | NUR ---
NURSE NOTES: Turned q 2hrs prn with good skin care done. Pt had x1 soft stool. Cleaned up pt.
--- NOTE | 2019-08-29 22:38 | Neurology Progress Note ---
Interim History Interim History ROS Limited/Unobtainable: Yes Interim History intubated, sedated no neuro improvement Objective Physical Exam Last Vital Signs Date Time Temp Pulse Resp B/P (MAP) Pulse Ox O2 Delivery O2 Flow Rate FiO2 08/29/19 20:53 93 137/55 08/29/19 20:00 28 95 Mechanical Ventilator 100 29 100 08/29/19 16:00 100.3 08/29/19 10:22 45.0 Laboratory Tests Test 08/29/19 10:30 White Blood Count 9.9 K/UL (4.8-10.8) Red Blood Count 3.69 M/UL (4.70-6.10) L Hemoglobin 11.6 G/DL (14.2-18.0) L Hematocrit 33.6 % (42.0-52.0) L Mean Corpuscular Volume 91 FL (80-99) Mean Corpuscular Hemoglobin 31.5 PG (27.0-31.0) H Mean Corpuscular Hemoglobin Concent 34.5 G/DL (32.0-36.0) Red Cell Distribution Width 12.5 % (11.6-14.8) Platelet Count 303 K/UL (150-450) Mean Platelet Volume 7.3 FL (6.5-10.1) Neutrophils (%) (Auto) % (45.0-75.0) Lymphocytes (%) (Auto) % (20.0-45.0) Monocytes (%) (Auto) % (1.0-10.0) Eosinophils (%) (Auto) % (0.0-3.0) Basophils (%) (Auto) % (0.0-2.0) Differential Total Cells Counted 100 Neutrophils % (Manual) 82 % (45-75) H Lymphocytes % (Manual) 12 % (20-45) L Monocytes % (Manual) 4 % (1-10) Eosinophils % (Manual) 0 % (0-3) Basophils % (Manual) 2 % (0-2) Band Neutrophils 0 % (0-8) Nucleated Red Blood Cells 1 /100 WBC Platelet Estimate Adequate Platelet Morphology Normal Red Blood Cell Morphology Sodium Level 145 MMOL/L (136-145) Potassium Level 4.0 MMOL/L (3.5-5.1) Chloride Level 108 MMOL/L (98-107) H Carbon Dioxide Level 29 MMOL/L (21-32) Anion Gap 9 mmol/L (5-15) Blood Urea Nitrogen 21 mg/dL (7-18) H Creatinine 0.8 MG/DL (0.55-1.30) Estimat Glomerular Filtration Rate > 60 mL/min (>60) Glucose Level 147 MG/DL (74-106) H Calcium Level 8.4 MG/DL (8.5-10.1) L Neurologic Exam Objective intubated, sedated, minimal withdraw cc 35 min Impression/Recommendations Problems: (1) Suspected 2019 novel coronavirus infection (2) Multi-infarct dementia (3) Uncontrolled seizures (4) History of CVA (cerebrovascular accident) (5) Acute encephalopathy (6) Aspiration pneumonia (7) Respiratory failure Diagnostic Impression icu level of care cont tre and dilantifrank Monitor for seizures covid ro started atb wean off sedation when able Ivan Rose MD Aug 29, 2019 22:38
--- NOTE | 2019-08-29 23:00 | NUR ---
NURSE NOTES: Remained sedated with Fentanyl drip of 80 mcg/hr. to attend RASS score -2.
[2019-08-30] VITALS (47 sets, daily range): BP systolic 124–166; BP diastolic 46–87
[2019-08-30] MEDS: Albuterol 90mcg Inhaler 8gm INH SCH ×4 (01:18→19:25)
[2019-08-30] MEDS: Ipratropium Bromide Inhaler INH SCH ×4 (01:18→19:25)
--- NOTE | 2019-08-30 02:00 | NUR ---
NURSE NOTES: Pt was agitated, soft wrist restraint maintained for safety,
--- NOTE | 2019-08-30 03:28 | NUR ---
NURSE NOTES: Bp 14/60, NSR 02 sat 96%. Appeared comfortable.
--- NOTE | 2019-08-30 05:30 | NUR ---
NURSE NOTES: Pt had another lg bowel movement, complete bath with bed changed done.
[2019-08-30] MEDS: Meropenem 1 GM in NS 55 ML IVPB SCH ×3 (05:55→21:20)
[2019-08-30] MEDS: fentaNYL Citrate 2500mcg in NS 250ml IV SCH ×2 (05:56→23:00)
--- NOTE | 2019-08-30 06:00 | NUR ---
NURSE NOTES: No resp. distress noted. VSS. Fentanyl drip at 80mcg/hr.to attend RASS score -2
[2019-08-30 07:04] LABS: APPEARANCE,URINE CLEAR; BILIRUBIN, URINE NEGATIVE (NEGATIVE); COLOR,URINE BROWN; GLUCOSE, URINE (UA) NEGATIVE (NEGATIVE); KETONES,URINE 1+ (NEGATIVE); LEUKOCYTE ESTERASE ,URINE 1+ (NEGATIVE); NITRITE,URINE NEGATIVE (NEGATIVE); PH,URINE 6 (4.5-8.0); PROTEIN,URINE 3+ (NEGATIVE); UROBILINOGEN,URINE 4 MG/DL (0.0-1.0)
[2019-08-30 07:10] LABS: HEMATOCRIT 32.4 % (42.0-52.0); HEMOGLOBIN 10.8 G/DL (14.2-18.0); MEAN CORPUSCULAR VOLUME 92 FL (80-99); PLATELET COUNT 302 K/UL (150-450); RED BLOOD COUNT 3.51 M/UL (4.70-6.10); RED CELL DISTRIBUTION WIDTH 12.6 % (11.6-14.8); WHITE BLOOD COUNT 11.1 K/UL (4.8-10.8)
--- NOTE | 2019-08-30 07:15 | NUR ---
RESPIRATORY NOTES Per doctor's orders, PT has been placed on SIMV: 20RR, 400Vt, PS10, +7PEEP. RN Henny wyman. Will continue to monitor PT.
[2019-08-30 07:25] LABS: ANION GAP 9 mmol/L (5-15); BLOOD UREA NITROGEN 20 mg/dL (7-18); CARBON DIOXIDE 28 MMOL/L (21-32); CHLORIDE 109 MMOL/L (98-107); CREATININE 0.8 MG/DL (0.55-1.30); POTASSIUM 4.7 MMOL/L (3.5-5.1); SODIUM 146 MMOL/L (136-145)
--- NOTE | 2019-08-30 07:41 | NUR ---
HAND-OFF: Report given to Henny PAULSON.
--- NOTE | 2019-08-30 08:00 | NUR ---
NURSE NOTES: Pt was placed on SIMV 20, PS10 mode per Dr Melendez'r order. VS remain stable. Pt is afebrile. Fentanyl drip is infusing at 80mcg/hr.
--- NOTE | 2019-08-30 08:55 | General Progress Note ---
Assessment/Plan Assessment/Plan: 83YO M with HTN, HLD, COPD, CAD, Seizure disorder presenting with cough and shortness of breath. In the ED, patient was found to be tachycardic (130's) and tachypnic (33) and febrile at 101.2. #Hypoxemic acute respiratory failure #Septic shock #Covid19 positive #transaminitis - likely 2/2 to above, downtrending/stable #Fevers - improved #Drug reaction/Red Man syndrome - resolved -Appreciate ICU care -Pulm/CCM eval appreciated -Cont. contact plus droplet isolation. -Continuous quality assurance monitor body. -Continue vent management per the ICU team, daily SBT -s/p Plaquenil -08/25 CXR reviewed, worsening b/l infiltrates -08/27 CXR w/Interval worsening of aeration with increasing interstitial and patchy bilateral airspace disease -08/26 BCx NGTD -08/26 SCx GPC -ID: cont. Zyvox, meropenem and Diflucan -ID and Pulm following, recs appreciated #Abdominal distension - improved, likley Ileus -per nurse pt w/2 good BMs -KUB reviewed -d/w general sx, likley ileus #History of Seizure disorder: -cont Dilantin and Keppra -Neurology following #Hypokalemia - resolved -replaced -ctm, replace PRN #Accelerated HTN - resolved #HLD #CAD #Eliquis use #Atrial flutter with rapid ventricular response #elevated troponins likely 2/2 demand ischemia, down trending -MTP 50 BID, hydralazine PRN -Eliquis 2.5 -Cardio following, recs appreciated #Sacral Decubitus Ulcer -general sx/wound care following -recs appreciated prognosis guarded I spent 70 minutes on this patient's case, and 38 mins was dedicated to critical care. Critical Care Services performed include: Telemetry Review Hemodynamic measurement interpretation Laboratory data review and interpretation Radiology image review and interpretation Ventilator setting review, management, and adjustment Discussion of patient's care with ICU team, ICU Nursing staff and/or consulting services including General surgery regarding radiology imaging results. Subjective Allergies: Coded Allergies: No Known Allergies (Unverified , 02/29/16) Subjective Follow up for acute hypoxic resp failure, septic shock, COVID-19 positive. Pt remains intubated. Objective Last 24 Hour Vital Signs Date Time Temp Pulse Resp B/P (MAP) Pulse Ox O2 Delivery O2 Flow Rate FiO2 08/30/19 07:27 99.0 08/30/19 07:15 85 30 95 Mechanical Ventilator 80 85 30 80 08/30/19 06:30 83 28 125/54 (77) 97 08/30/19 06:30 92 24 08/30/19 06:00 83 126/59 (81) 96 08/30/19 05:56 24 80 08/30/19 05:30 82 132/59 (83) 99 08/30/19 05:24 98 29 80 08/30/19 05:00 24 Mechanical Ventilator 80 08/30/19 05:00 86 128/46 (73) 96 08/30/19 04:30 86 28 125/64 (84) 96 08/30/19 04:00 80 08/30/19 04:00 99.0 86 28 126/60 (82) 97 08/30/19 04:00 97 08/30/19 04:00 Mechanical Ventilator 08/30/19 04:00 24 Mechanical Ventilator 80 08/30/19 03:30 90 28 136/64 (88) 97 08/30/19 03:05 91 27 80 08/30/19 03:00 91 25 140/60 (86) 97 08/30/19 03:00 24 Mechanical Ventilator 80 08/30/19 02:30 92 25 141/72 (95) 97 08/30/19 02:00 24 Mechanical Ventilator 80 08/30/19 02:00 89 25 135/65 (88) 96 08/30/19 01:30 90 28 140/70 (93) 95 08/30/19 01:08 94 26 95 Mechanical Ventilator 80 92 27 100 08/30/19 01:00 92 29 140/65 (90) 98 08/30/19 01:00 25 Mechanical Ventilator 80 08/30/19 00:30 94 23 142/67 (92) 97 08/30/19 00:00 94 08/30/19 00:00 Mechanical Ventilator 08/30/19 00:00 28 Mechanical Ventilator 80 08/30/19 00:00 70 08/30/19 00:00 99.8 95 24 149/87 (107) 97 08/29/19 23:30 94 23 151/69 (96) 97 08/29/19 23:24 95 27 100 08/29/19 23:00 89 22 131/65 (87) 97 08/29/19 23:00 26 Mechanical Ventilator 80 08/29/19 22:30 87 28 129/71 (90) 97 08/29/19 22:00 24 Mechanical Ventilator 70 08/29/19 22:00 93 23 137/53 (81) 97 08/29/19 21:30 94 21 139/58 (85) 97 08/29/19 21:00 24 Mechanical Ventilator 60 08/29/19 21:00 93 22 123/61 (81) 96 08/29/19 20:53 93 137/55 08/29/19 20:30 93 22 137/55 (82) 96 08/29/19 20:00 Mechanical Ventilator 08/29/19 20:00 100.0 91 22 127/59 (81) 96 08/29/19 20:00 92 28 95 Mechanical Ventilator 100 94 29 100 08/29/19 20:00 93 08/29/19 19:30 92 25 131/65 (87) 96 08/29/19 19:30 24 Mechanical Ventilator 60 08/29/19 19:00 18 Mechanical Ventilator 08/29/19 19:00 95 32 134/68 (90) 98 08/29/19 18:30 101 35 127/75 (92) 98 08/29/19 18:00 101 36 146/75 (98) 98 08/29/19 18:00 18 Mechanical Ventilator 08/29/19 17:30 96 30 140/70 (93) 93 08/29/19 17:27 97 30 60 08/29/19 17:00 94 30 134/71 (92) 93 08/29/19 17:00 18 Mechanical Ventilator 08/29/19 16:00 60 08/29/19 16:00 Mechanical Ventilator 08/29/19 16:00 100.3 97 30 130/70 (90) 93 08/29/19 16:00 18 Mechanical Ventilator 08/29/19 16:00 18 Mechanical Ventilator 08/29/19 16:00 101 08/29/19 15:30 99 31 136/73 (94) 93 08/29/19 15:00 101 32 145/70 (95) 93 08/29/19 15:00 18 Mechanical Ventilator 08/29/19 15:00 102 32 60 08/29/19 14:30 101 32 142/70 (94) 94 08/29/19 14:00 102 31 144/73 (96) 94 08/29/19 14:00 18 Mechanical Ventilator 08/29/19 13:30 102 33 146/76 (99) 94 08/29/19 13:03 102 35 93 Mechanical Ventilator 60 102 35 60 08/29/19 13:00 18 Mechanical Ventilator 08/29/19 13:00 102 34 149/79 (102) 93 08/29/19 12:00 Mechanical Ventilator 08/29/19 12:00 99 33 160/74 (102) 95 08/29/19 12:00 20 Mechanical Ventilator 08/29/19 12:00 60 08/29/19 12:00 99 08/29/19 11:30 100 31 162/74 (103) 97 08/29/19 11:00 106 38 155/80 (105) 97 08/29/19 11:00 24 Mechanical Ventilator 08/29/19 11:00 100 31 60 08/29/19 10:30 103 39 161/75 (103) 98 08/29/19 10:22 34 Mechanical Ventilator 45.0 40 08/29/19 10:21 98 127/61 08/29/19 10:00 22 Mechanical Ventilator 08/29/19 10:00 98 39 144/75 (98) 96 08/29/19 09:30 95 37 145/65 (91) 96 08/29/19 09:05 98 34 60 08/29/19 09:00 90 26 134/61 (85) 96 08/29/19 09:00 24 Mechanical Ventilator Intake and Output 08/29/19 08/30/19 19:00 07:00 Intake Total 1130 ml 1171 ml Output Total 550 ml 560 ml Balance 580 ml 611 ml Free Water 120 ml 130 ml IV Total 410 ml 491 ml Tube Feeding 600 ml 550 ml Output Urine Total 550 ml 560 ml # Bowel Movements 2 7 Laboratory Tests 08/29/19 10:30: White Blood Count 9.9, Red Blood Count 3.69L, Hemoglobin 11.6L, Hematocrit 33.6L , Mean Corpuscular Volume 91, Mean Corpuscular Hemoglobin 31.5H, Mean Corpuscular Hemoglobin Concent 34.5, Red Cell Distribution Width 12.5, Platelet Count 303, Mean Platelet Volume 7.3, Neutrophils (%) (Auto) , Lymphocytes (%) ( Auto) , Monocytes (%) (Auto) , Eosinophils (%) (Auto) , Basophils (%) (Auto) , Differential Total Cells Counted 100, Neutrophils % (Manual) 82H, Lymphocytes % (Manual) 12L, Monocytes % (Manual) 4, Eosinophils % (Manual) 0, Basophils % ( Manual) 2, Band Neutrophils 0, Nucleated Red Blood Cells 1, Platelet Estimate Adequate, Platelet Morphology Normal, Red Blood Cell Morphology , Sodium Level 145, Potassium Level 4.0, Chloride Level 108H, Carbon Dioxide Level 29, Anion Gap 9, Blood Urea Nitrogen 21H, Creatinine 0.8, Estimat Glomerular Filtration Rate > 60, Glucose Level 147H, Calcium Level 8.4L 08/30/19 04:00: White Blood Count 11.1H, Red Blood Count 3.51L, Hemoglobin 10.8L, Hematocrit 32.4L, Mean Corpuscular Volume 92, Mean Corpuscular Hemoglobin 30.8, Mean Corpuscular Hemoglobin Concent 33.4, Red Cell Distribution Width 12.6, Platelet Count 302, Mean Platelet Volume 6.7, Neutrophils (%) (Auto) , Lymphocytes (%) ( Auto) , Monocytes (%) (Auto) , Eosinophils (%) (Auto) , Basophils (%) (Auto) , Neutrophils % (Manual) [Pending], Lymphocytes % (Manual) [Pending], Platelet Estimate [Pending], Platelet Morphology [Pending], Sodium Level 146H, Potassium Level 4.7, Chloride Level 109H, Carbon Dioxide Level 28, Anion Gap 9, Blood Urea Nitrogen 20H, Creatinine 0.8, Estimat Glomerular Filtration Rate > 60, Glucose Level 229H, Calcium Level 8.0L, Phenytoin (Dilantin) Level 6.5L 08/30/19 04:30: Urine Color Brown, Urine Appearance Clear, Urine pH 6, Urine Specific [place] 1.020, Urine Protein 3+H, Urine Glucose (UA) Negative, Urine Ketones 1+H, Urine Blood 4+H, Urine Nitrite Negative, Urine Bilirubin Negative, Urine Urobilinogen 4H, Urine Leukocyte Esterase 1+H, Urine RBC 15-20H, Urine WBC 2-4, Urine Squamous Epithelial Cells Occasional, Urine Bacteria Few Height (Feet): 5 Height (Inches): 8.00 Weight (Pounds): 160 Objective exam deffered today, examined through window: General: Intubated, appears comfortable HEENT: NCAT CV: RRR on tele monitor Pulm: b/l rise in lungs Ext: heels wrapped in bandages Liliana Leal M.D. Aug 30, 2019 08:55
[2019-08-30] MEDS: levETIRAcetam 500mg/5ml Liquid GT SCH ×2 (10:05→21:21)
[2019-08-30] MEDS: Metoprolol Tartrate 50mg tab GT SCH ×2 (10:05→21:20)
[2019-08-30] MEDS: Solu-MEDROL 40mg Inj IVP SCH ×2 (10:05→21:21)
[2019-08-30] MEDS: Eliquis 2.5mg tablet GT SCH ×2 (10:06→18:39)
--- NOTE | 2019-08-30 10:49 | Cardiac Electrophysiology PN ---
Assessment/Plan Assessment/Plan 1. Atrial flutter with rapid ventricular response. In SR with first degree AVB On Eliquis 2.5 mg bid, metoprolol 50 mg bid. 2. Accelerated hypertension with blood pressure of 200. Continue metoprolol 50 mg b.i.d. and p.r.n. IV hydralazine. 3. 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 4. Respiratory failure due to COVID-19 pneumonia. On the Vent on 70% fio2 Completed hydroxychloroquine. EKG QT 440 . 5. Sepsis on Solu-Medrol and Meropenem 6. History of CVA. 7. Multi-infarct dementia. 8. History of seizures. 9. Abdominal distension DW RN Subjective Subjective Intubated in ICU on the vent 70% fio2 in isolation as Covid is positive. In SR off pressors. Had KUB for abdominal distension but has large formed BMs Objective Last 24 Hour Vital Signs Date Time Temp Pulse Resp B/P (MAP) Pulse Ox O2 Delivery O2 Flow Rate FiO2 08/30/19 10:30 90 28 141/56 (84) 96 08/30/19 10:05 85 125/54 08/30/19 10:00 89 30 132/55 (80) 96 08/30/19 09:30 88 30 132/60 (84) 96 08/30/19 09:00 86 33 131/61 (84) 95 08/30/19 08:56 85 32 80 08/30/19 08:30 85 30 136/57 (83) 95 08/30/19 08:00 98.2 81 36 125/49 (74) 96 08/30/19 07:30 84 29 124/56 (78) 95 08/30/19 07:27 99.0 08/30/19 07:15 85 30 95 Mechanical Ventilator 80 85 30 80 08/30/19 07:00 83 32 126/52 (76) 95 08/30/19 06:30 83 28 125/54 (77) 97 08/30/19 06:30 92 24 08/30/19 06:00 83 126/59 (81) 96 08/30/19 05:56 24 80 08/30/19 05:30 82 132/59 (83) 99 08/30/19 05:24 98 29 80 08/30/19 05:00 24 Mechanical Ventilator 80 08/30/19 05:00 86 128/46 (73) 96 08/30/19 04:30 86 28 125/64 (84) 96 08/30/19 04:00 80 08/30/19 04:00 99.0 86 28 126/60 (82) 97 08/30/19 04:00 97 08/30/19 04:00 Mechanical Ventilator 08/30/19 04:00 24 Mechanical Ventilator 80 08/30/19 03:30 90 28 136/64 (88) 97 08/30/19 03:05 91 27 80 08/30/19 03:00 91 25 140/60 (86) 97 08/30/19 03:00 24 Mechanical Ventilator 80 08/30/19 02:30 92 25 141/72 (95) 97 08/30/19 02:00 24 Mechanical Ventilator 80 08/30/19 02:00 89 25 135/65 (88) 96 08/30/19 01:30 90 28 140/70 (93) 95 08/30/19 01:08 94 26 95 Mechanical Ventilator 80 92 27 100 08/30/19 01:00 92 29 140/65 (90) 98 08/30/19 01:00 25 Mechanical Ventilator 80 08/30/19 00:30 94 23 142/67 (92) 97 08/30/19 00:00 94 08/30/19 00:00 Mechanical Ventilator 08/30/19 00:00 28 Mechanical Ventilator 80 08/30/19 00:00 70 08/30/19 00:00 99.8 95 24 149/87 (107) 97 08/29/19 23:30 94 23 151/69 (96) 97 08/29/19 23:24 95 27 100 08/29/19 23:00 89 22 131/65 (87) 97 08/29/19 23:00 26 Mechanical Ventilator 80 08/29/19 22:30 87 28 129/71 (90) 97 08/29/19 22:00 24 Mechanical Ventilator 70 08/29/19 22:00 93 23 137/53 (81) 97 08/29/19 21:30 94 21 139/58 (85) 97 08/29/19 21:00 24 Mechanical Ventilator 60 08/29/19 21:00 93 22 123/61 (81) 96 08/29/19 20:53 93 137/55 08/29/19 20:30 93 22 137/55 (82) 96 08/29/19 20:00 Mechanical Ventilator 08/29/19 20:00 100.0 91 22 127/59 (81) 96 08/29/19 20:00 92 28 95 Mechanical Ventilator 100 94 29 100 08/29/19 20:00 93 08/29/19 19:30 92 25 131/65 (87) 96 08/29/19 19:30 24 Mechanical Ventilator 60 08/29/19 19:00 18 Mechanical Ventilator 08/29/19 19:00 95 32 134/68 (90) 98 08/29/19 18:30 101 35 127/75 (92) 98 08/29/19 18:00 101 36 146/75 (98) 98 08/29/19 18:00 18 Mechanical Ventilator 08/29/19 17:30 96 30 140/70 (93) 93 08/29/19 17:27 97 30 60 08/29/19 17:00 94 30 134/71 (92) 93 08/29/19 17:00 18 Mechanical Ventilator 08/29/19 16:00 60 08/29/19 16:00 Mechanical Ventilator 08/29/19 16:00 100.3 97 30 130/70 (90) 93 08/29/19 16:00 18 Mechanical Ventilator 08/29/19 16:00 18 Mechanical Ventilator 08/29/19 16:00 101 08/29/19 15:30 99 31 136/73 (94) 93 08/29/19 15:00 101 32 145/70 (95) 93 08/29/19 15:00 18 Mechanical Ventilator 08/29/19 15:00 102 32 60 08/29/19 14:30 101 32 142/70 (94) 94 08/29/19 14:00 102 31 144/73 (96) 94 08/29/19 14:00 18 Mechanical Ventilator 08/29/19 13:30 102 33 146/76 (99) 94 08/29/19 13:03 102 35 93 Mechanical Ventilator 60 102 35 60 08/29/19 13:00 18 Mechanical Ventilator 08/29/19 13:00 102 34 149/79 (102) 93 08/29/19 12:00 Mechanical Ventilator 08/29/19 12:00 99 33 160/74 (102) 95 08/29/19 12:00 20 Mechanical Ventilator 08/29/19 12:00 60 4/16/20 12:00 99 08/29/19 11:30 100 31 162/74 (103) 97 08/29/19 11:00 106 38 155/80 (105) 97 08/29/19 11:00 24 Mechanical Ventilator 08/29/19 11:00 100 31 60 Intake and Output 08/29/19 08/30/19 19:00 07:00 Intake Total 1130 ml 1171 ml Output Total 550 ml 560 ml Balance 580 ml 611 ml Free Water 120 ml 130 ml IV Total 410 ml 491 ml Tube Feeding 600 ml 550 ml Output Urine Total 550 ml 560 ml # Bowel Movements 2 7 Laboratory Tests Test 08/30/19 04:00 08/30/19 04:30 White Blood Count 11.1 K/UL (4.8-10.8) H Red Blood Count 3.51 M/UL (4.70-6.10) L Hemoglobin 10.8 G/DL (14.2-18.0) L Hematocrit 32.4 % (42.0-52.0) L Mean Corpuscular Volume 92 FL (80-99) Mean Corpuscular Hemoglobin 30.8 PG (27.0-31.0) Mean Corpuscular Hemoglobin Concent 33.4 G/DL (32.0-36.0) Red Cell Distribution Width 12.6 % (11.6-14.8) Platelet Count 302 K/UL (150-450) Mean Platelet Volume 6.7 FL (6.5-10.1) Neutrophils (%) (Auto) % (45.0-75.0) Lymphocytes (%) (Auto) % (20.0-45.0) Monocytes (%) (Auto) % (1.0-10.0) Eosinophils (%) (Auto) % (0.0-3.0) Basophils (%) (Auto) % (0.0-2.0) Differential Total Cells Counted 100 Neutrophils % (Manual) 81 % (45-75) H Lymphocytes % (Manual) 7 % (20-45) L Monocytes % (Manual) 6 % (1-10) Eosinophils % (Manual) 0 % (0-3) Basophils % (Manual) 0 % (0-2) Band Neutrophils 6 % (0-8) Platelet Estimate Adequate Platelet Morphology Normal Red Blood Cell Morphology Normal Sodium Level 146 MMOL/L (136-145) H Potassium Level 4.7 MMOL/L (3.5-5.1) Chloride Level 109 MMOL/L (98-107) H Carbon Dioxide Level 28 MMOL/L (21-32) Anion Gap 9 mmol/L (5-15) Blood Urea Nitrogen 20 mg/dL (7-18) H Creatinine 0.8 MG/DL (0.55-1.30) Estimat Glomerular Filtration Rate > 60 mL/min (>60) Glucose Level 229 MG/DL (74-106) H Calcium Level 8.0 MG/DL (8.5-10.1) L Phenytoin (Dilantin) Level 6.5 ug/mL (10-20) L Urine Color Brown Urine Appearance Clear Urine pH 6 (4.5-8.0) Urine Specific [place] 1.020 (1.005-1.035) Urine Protein 3+ (NEGATIVE) H Urine Glucose (UA) Negative (NEGATIVE) Urine Ketones 1+ (NEGATIVE) H Urine Blood 4+ (NEGATIVE) H Urine Nitrite Negative (NEGATIVE) Urine Bilirubin Negative (NEGATIVE) Urine Urobilinogen 4 MG/DL (0.0-1.0) H Urine Leukocyte Esterase 1+ (NEGATIVE) H Urine RBC 15-20 /HPF (0 - 0) H Urine WBC 2-4 /HPF (0 - 0) Urine Squamous Epithelial Cells Occasional /LPF Urine Bacteria Few /HPF (NONE) Microbiology Date/Time Source Procedure Growth Status 08/27/19 11:45 Blood Blood Culture - Preliminary NO GROWTH AFTER 24 HOURS Resulted 08/27/19 14:00 Sputum Gram Stain - Final Complete 08/27/19 14:00 Sputum Culture - Final Staphylococcus Aureus - Mrsa Complete Objective HEAD AND NECK: No JVD. Orally intubated. LUNGS: Coarse rhonchi. CARDIOVASCULAR: Irregular S1 and S2 with no gallop or murmur. ABDOMEN: Soft. EXTREMITIES: 1 plus pitting edema. Paul Robles MD Aug 30, 2019 10:49
--- NOTE | 2019-08-30 11:09 | NUR ---
RD ASSESSMENT & RECOMMENDATIONS SEE CARE ACTIVITY FOR COMPLETE ASSESSMENT DAILY ESTIMATED NEEDS: Needs based on Critical care, Wounds/ 53kg abw 22-28 kcals/kg 0235-3442 total kcals 1.25-2 g protein/kg 66-106 g total protein 25-30 mL/kg 9840-9291 total fluid mLs NUTRITION DIAGNOSIS: * Swallowing difficulty R/T dysphagia as evidenced by PEG dep, s/p intubation, on GT feeding. * Increased kcal/prot needs R/T wound healing as evidenced by pt admitted w/ evolving DTPI sacral wound and unstageable lt heel wound. CURRENT TF:Glucerna 1.2 @50ml/hr x22 hrs ENTERAL NUTRITION RECOMMENDATIONS: Glucerna 1.2 @ 50ml/hr x 22 hrs (hold 1 hr before and after Dilantin QD) to provide 1100ml, 1320kcal, 66g prot, 886ml free water * Maintain Glucerna 1.2 for carb control, BGs elevated. * Hold 1 hr before and after Dilantin med * HOB over 30 degrees/ without IVF, H20 flush of 150ml q 6 hrs FOR 24 HRS TF RUN WITHOUT DILANTIN: okay to keep the same TF rate of Glucerna 1.2 @ 50ml/hr x 24 hrs to provide 1200ml, 1440kcal, 72g prot 966ml free water -> will still meet 100% est kcal/prot needs ADDITIONAL RECOMMENDATIONS: * Per SNF record, ht is 60", wt is 149lbs (08/14/19) Rec calibrated bedscale wt * Rec NISS w/ TF: BGs elevated, now on Solumedrol * Wound healing: add Vit C 500mg QD + Giancarlo 1pkt BID via PEG * Monitor lytes, replete as needed .
--- NOTE | 2019-08-30 11:36 | Infectious Diseases Prog Note ---
Assessment/Plan Assessment/Plan ASSESSMENT AND PLAN: Patient in icu exam deferred secondary to covid-19 isolation d/w RN 1. covid-19 virus infection, pna, sepsis, fevers, vent, respiratory failure MRSA pna - sensitivities pending rash - ? vancomycin, ? zosyn - abx held ? bowel obstruction, ? ileus fungemia risk - zyvox, meropenem and diflucan - f/u on labs and chest x-ray, f/u kub, f/u on cultures - supportive care, ivf, vent - d/w RN - remains critical - communicated with Dr. Leal - surgery f/u - d/w pharmacy 2. Respiratory failure, on vent. 3. History of hyperlipidemia. 4. History of hypertension. 5. Atherosclerotic heart disease. 6. CAD. 7. COPD. 8. Dementia. 9. Nonverbal at baseline. 10. History of seizures. 11. No known drug allergies. 12. Social history negative. 13. Family history noncontributory. 14. MAR was noted. 15. Case discussed with RN. 16. Continue treatment per primary consultants. Subjective Allergies: Coded Allergies: No Known Allergies (Unverified , 02/29/16) Objective Vital Signs Last 24 Hour Vital Signs Date Time Temp Pulse Resp B/P (MAP) Pulse Ox O2 Delivery O2 Flow Rate FiO2 08/30/19 11:00 92 38 80 08/30/19 10:30 90 28 141/56 (84) 96 08/30/19 10:05 85 125/54 08/30/19 10:00 89 30 132/55 (80) 96 08/30/19 09:30 88 30 132/60 (84) 96 08/30/19 09:00 86 33 131/61 (84) 95 08/30/19 08:56 85 32 80 08/30/19 08:30 85 30 136/57 (83) 95 08/30/19 08:00 83 08/30/19 08:00 98.2 81 36 125/49 (74) 96 08/30/19 08:00 80 08/30/19 08:00 Mechanical Ventilator 08/30/19 07:30 84 29 124/56 (78) 95 08/30/19 07:27 99.0 08/30/19 07:15 85 30 95 Mechanical Ventilator 80 85 30 80 08/30/19 07:00 83 32 126/52 (76) 95 08/30/19 06:30 83 28 125/54 (77) 97 08/30/19 06:30 92 24 08/30/19 06:00 83 126/59 (81) 96 08/30/19 05:56 24 80 08/30/19 05:30 82 132/59 (83) 99 08/30/19 05:24 98 29 80 08/30/19 05:00 24 Mechanical Ventilator 80 08/30/19 05:00 86 128/46 (73) 96 08/30/19 04:30 86 28 125/64 (84) 96 08/30/19 04:00 80 08/30/19 04:00 99.0 86 28 126/60 (82) 97 08/30/19 04:00 97 08/30/19 04:00 Mechanical Ventilator 08/30/19 04:00 24 Mechanical Ventilator 80 08/30/19 03:30 90 28 136/64 (88) 97 08/30/19 03:05 91 27 80 08/30/19 03:00 91 25 140/60 (86) 97 08/30/19 03:00 24 Mechanical Ventilator 80 08/30/19 02:30 92 25 141/72 (95) 97 08/30/19 02:00 24 Mechanical Ventilator 80 08/30/19 02:00 89 25 135/65 (88) 96 08/30/19 01:30 90 28 140/70 (93) 95 08/30/19 01:08 94 26 95 Mechanical Ventilator 80 92 27 100 08/30/19 01:00 92 29 140/65 (90) 98 08/30/19 01:00 25 Mechanical Ventilator 80 08/30/19 00:30 94 23 142/67 (92) 97 08/30/19 00:00 94 08/30/19 00:00 Mechanical Ventilator 08/30/19 00:00 28 Mechanical Ventilator 80 08/30/19 00:00 70 08/30/19 00:00 99.8 95 24 149/87 (107) 97 08/29/19 23:30 94 23 151/69 (96) 97 08/29/19 23:24 95 27 100 08/29/19 23:00 89 22 131/65 (87) 97 08/29/19 23:00 26 Mechanical Ventilator 80 08/29/19 22:30 87 28 129/71 (90) 97 08/29/19 22:00 24 Mechanical Ventilator 70 08/29/19 22:00 93 23 137/53 (81) 97 08/29/19 21:30 94 21 139/58 (85) 97 08/29/19 21:00 24 Mechanical Ventilator 60 08/29/19 21:00 93 22 123/61 (81) 96 08/29/19 20:53 93 137/55 08/29/19 20:30 93 22 137/55 (82) 96 08/29/19 20:00 Mechanical Ventilator 08/29/19 20:00 100.0 91 22 127/59 (81) 96 08/29/19 20:00 92 28 95 Mechanical Ventilator 100 94 29 100 08/29/19 20:00 93 08/29/19 19:30 92 25 131/65 (87) 96 08/29/19 19:30 24 Mechanical Ventilator 60 08/29/19 19:00 18 Mechanical Ventilator 08/29/19 19:00 95 32 134/68 (90) 98 08/29/19 18:30 101 35 127/75 (92) 98 08/29/19 18:00 101 36 146/75 (98) 98 08/29/19 18:00 18 Mechanical Ventilator 08/29/19 17:30 96 30 140/70 (93) 93 08/29/19 17:27 97 30 60 08/29/19 17:00 94 30 134/71 (92) 93 08/29/19 17:00 18 Mechanical Ventilator 08/29/19 16:00 60 08/29/19 16:00 Mechanical Ventilator 08/29/19 16:00 100.3 97 30 130/70 (90) 93 08/29/19 16:00 18 Mechanical Ventilator 08/29/19 16:00 18 Mechanical Ventilator 08/29/19 16:00 101 08/29/19 15:30 99 31 136/73 (94) 93 08/29/19 15:00 101 32 145/70 (95) 93 08/29/19 15:00 18 Mechanical Ventilator 08/29/19 15:00 102 32 60 08/29/19 14:30 101 32 142/70 (94) 94 08/29/19 14:00 102 31 144/73 (96) 94 4/16/20 14:00 18 Mechanical Ventilator 08/29/19 13:30 102 33 146/76 (99) 94 08/29/19 13:03 102 35 93 Mechanical Ventilator 60 102 35 60 08/29/19 13:00 18 Mechanical Ventilator 08/29/19 13:00 102 34 149/79 (102) 93 08/29/19 12:00 Mechanical Ventilator 08/29/19 12:00 99 33 160/74 (102) 95 08/29/19 12:00 20 Mechanical Ventilator 08/29/19 12:00 60 08/29/19 12:00 99 Height (Feet): 5 Height (Inches): 8.00 Weight (Pounds): 160 Objective Procedure: XRAY Chest 1v - 08/23/19 - Indication: Chest pain Technique: One view of the chest Comparison: 1 1/2 hours earlier Findings: Interim placement of a right jugular central venous catheter, tip which projects at the level of the high right atrium. No gross pneumothorax. Interim endotracheal intubation, endotracheal tube tip projecting approximately 6 cm above the darline. Right upper lobe infiltrate is unchanged. Left retrocardiac opacification and likely left pleural effusion are unchanged. Impression: Endotracheal intubation Satisfactory placement right jugular central venous catheter, no radiographically evident complication Other stable findings as described 08/25/19 - Procedure: XRAY Chest 1v EXAM: XR Chest, 1 View CLINICAL HISTORY: INTRA-OP TECHNIQUE: Frontal view of the chest. COMPARISON: No relevant prior studies available. FINDINGS: Redemonstrated endotracheal tube, appropriately positioned, the tip projecting above the darline. Right internal jugular central venous catheter tip is again in the upper right atrium. There is no pneumothorax. Bilateral pulmonary consolidation is again noted. This is most confluent in the left midlung and right upper lobe, similar appearance to prior. 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 Chronic rib deformities as well as skeletal degenerative changes. IMPRESSION: No significant interval change in extensive bilateral airspace infiltrates. Chest x-ray - 08/26/19 - Procedure: XRAY Chest 1v Indication: Shortness of breath Technique: One view of the chest Comparison: none Findings: Bilateral diffuse infiltrates appears slightly more extensive than on the previous study. Stable satisfactory positions of endotracheal tube and right jugular central venous catheter. Gastrostomy is demonstrated. Impression: Over one day, interim slight worsening of bilateral infiltrates Other stable findings as described KUB - 08/29/19 - Findings: There are some mildly dilated small bowel loops in the lower midabdomen. A more dilated gas-filled segment of bowel is seen to the right of midline. Uncertain as to whether this represents a very dilated small bowel loop or an upper limits of normal caliber segment of sigmoid colon. There is a gastrostomy noted. There is a Swartz catheter noted. Impression: Mildly dilated small bowel loops in the lower midabdomen, nonspecific, could indicate ileus versus early obstructive changes Focal segment of either very dilated small bowel or mildly prominent colon in the right upper pelvis, favor the latter Gastrostomy and Swartz catheter incidentally noted Chest x-ray 08/28/19 - Findings: Heart size is stable. Atherosclerotic calcifications again noted in the aorta. Endotracheal tube stable and satisfactory position. Right transjugular central line has its tip in the region of the high right atrium. A gastrostomy tube is noted. There is interval worsening of aeration with increasing interstitial and patchy bilateral airspace disease. Small layering left pleural effusion not excluded. No evidence of pneumothorax. Again is evidence of prior cardiac surgery with median sternotomy and prosthetic cardiac valve. Osseous structures are stable. IMPRESSION: Interval worsening of aeration with increasing interstitial and patchy bilateral airspace disease. Findings may be on the basis of worsening CHF/pulmonary edema although multifocal pneumonia must also be considered. Endotracheal tube injection is a central line remain in place. 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 Microbiology Date/Time Source Procedure Growth Status 08/27/19 11:45 Blood Blood Culture - Preliminary NO GROWTH AFTER 24 HOURS Resulted 08/27/19 14:00 Sputum Gram Stain - Final Complete 08/27/19 14:00 Sputum Culture - Final Staphylococcus Aureus - Mrsa Complete Laboratory Tests Test 08/30/19 04:00 08/30/19 04:30 White Blood Count 11.1 K/UL (4.8-10.8) H Red Blood Count 3.51 M/UL (4.70-6.10) L Hemoglobin 10.8 G/DL (14.2-18.0) L Hematocrit 32.4 % (42.0-52.0) L Mean Corpuscular Volume 92 FL (80-99) Mean Corpuscular Hemoglobin 30.8 PG (27.0-31.0) Mean Corpuscular Hemoglobin Concent 33.4 G/DL (32.0-36.0) Red Cell Distribution Width 12.6 % (11.6-14.8) Platelet Count 302 K/UL (150-450) Mean Platelet Volume 6.7 FL (6.5-10.1) Neutrophils (%) (Auto) % (45.0-75.0) Lymphocytes (%) (Auto) % (20.0-45.0) Monocytes (%) (Auto) % (1.0-10.0) Eosinophils (%) (Auto) % (0.0-3.0) Basophils (%) (Auto) % (0.0-2.0) Differential Total Cells Counted 100 Neutrophils % (Manual) 81 % (45-75) H Lymphocytes % (Manual) 7 % (20-45) L Monocytes % (Manual) 6 % (1-10) Eosinophils % (Manual) 0 % (0-3) Basophils % (Manual) 0 % (0-2) Band Neutrophils 6 % (0-8) Platelet Estimate Adequate Platelet Morphology Normal Red Blood Cell Morphology Normal Sodium Level 146 MMOL/L (136-145) H Potassium Level 4.7 MMOL/L (3.5-5.1) Chloride Level 109 MMOL/L (98-107) H Carbon Dioxide Level 28 MMOL/L (21-32) Anion Gap 9 mmol/L (5-15) Blood Urea Nitrogen 20 mg/dL (7-18) H Creatinine 0.8 MG/DL (0.55-1.30) Estimat Glomerular Filtration Rate > 60 mL/min (>60) Glucose Level 229 MG/DL (74-106) H Calcium Level 8.0 MG/DL (8.5-10.1) L Phenytoin (Dilantin) Level 6.5 ug/mL (10-20) L Urine Color Brown Urine Appearance Clear Urine pH 6 (4.5-8.0) Urine Specific [place] 1.020 (1.005-1.035) Urine Protein 3+ (NEGATIVE) H Urine Glucose (UA) Negative (NEGATIVE) Urine Ketones 1+ (NEGATIVE) H Urine Blood 4+ (NEGATIVE) H Urine Nitrite Negative (NEGATIVE) Urine Bilirubin Negative (NEGATIVE) Urine Urobilinogen 4 MG/DL (0.0-1.0) H Urine Leukocyte Esterase 1+ (NEGATIVE) H Urine RBC 15-20 /HPF (0 - 0) H Urine WBC 2-4 /HPF (0 - 0) Urine Squamous Epithelial Cells Occasional /LPF Urine Bacteria Few /HPF (NONE) Current Medications Medications (Trade) Dose Ordered Sig/Vanessa Route PRN Reason Start Time Stop Time Status Last Admin Dose Admin Acetaminophen (Tylenol) 650 mg EVERY 6 HOURS PRN GT Temp >100.5 08/20/19 22:00 09/19/19 21:59 08/28/19 10:49 Albuterol Sulfate (Proventil MDI) 2 puff Q6HRT INH 08/22/19 13:00 11/20/19 12:59 08/30/19 07:15 Apixaban (Eliquis) 2.5 mg BID GT 08/26/19 18:00 11/18/19 17:59 08/30/19 10:06 Chlorhexidine Gluconate (Antonella-Hex 2%) 1 applic DAILY@2000 TOPIC 08/21/19 20:00 11/19/19 19:59 08/29/19 20:17 Fentanyl Citrate 2500 mcg/Sodium Chloride 250 ml @ 0 mls/hr Q24H IV 08/28/19 20:00 09/04/19 19:59 08/30/19 05:56 Fluconazole/ Sodium Chloride 200 ml @ 100 mls/hr Q24H IV 08/28/19 13:30 09/04/19 13:29 08/29/19 14:50 Hydralazine HCl (Apresoline) 10 mg Q2H PRN IV Systolic >180 08/26/19 15:45 11/24/19 15:44 Ipratropium [place] (Atrovent Inh) 1 puffs Q6HRT INH 08/22/19 13:00 09/21/19 12:59 08/30/19 07:15 Levetiracetam (Keppra) 1,500 mg Q12HR GT 08/20/19 21:00 09/19/19 20:59 08/30/19 10:05 Linezolid 300 ml @ 300 mls/hr EVERY 12 HOURS IVPB 08/29/19 21:00 09/05/19 20:59 08/30/19 10:05 Lorazepam (Ativan 2mg/ml 1ml) 0.5 mg Q4H PRN IV For Anxiety 08/26/19 12:00 09/02/19 11:59 08/27/19 19:34 Meropenem 1 gm/ Sodium Chloride 55 ml @ 110 mls/hr Q8HR IVPB 08/28/19 14:00 09/02/19 13:59 08/30/19 05:55 Methylprednisolone Sodium Succinate (Solu-MEDROL) 30 mg EVERY 12 HOURS IVP 08/29/19 21:00 11/23/19 20:59 08/30/19 10:05 Metoprolol Tartrate (Lopressor) 50 mg Q12HR GT 08/26/19 21:00 11/24/19 11:59 08/30/19 10:05 Midazolam HCl (Versed 2mg/2ml vial) 1 mg Q2H PRN IVP agitation 08/26/19 12:45 11/24/19 12:44 08/27/19 06:44 Phenytoin (Dilantin) 250 mg DAILY GT 08/21/19 09:00 09/20/19 08:59 Future Hold Tamsulosin HCl (Flomax) 0.4 mg BEDTIME ORAL 08/20/19 21:00 09/19/19 20:59 08/29/19 20:52 Gwen Velásquez MD Aug 30, 2019 11:36
--- NOTE | 2019-08-30 13:23 | Pulmonolgy Critical Care Note ---
Critical Care - Asmt/Plan Problems: (1) Respiratory failure (2) Suspected 2019 novel coronavirus infection (3) History of CVA (cerebrovascular accident) (4) Acute encephalopathy (5) Multi-infarct dementia (6) Uncontrolled seizures Assessment/Plan: Continue ventilatory support ---> wean via SIMV Monitor gas exchange STRONGLY CONSIDER HHN's in line with Vent SM 30 IV BID (D6) and taper Completed 5 days of Plaquenil Zyvox/Candis/Flucon per ID Daily CRP and ferritin D/W pharmacy RE: Tociluzumab - per pharmacist on national shortage and cannot get, will continue to follow up Remdesivir limited to trial, cannot get under compassionate care Monitor volumes and renal function ICU sedation: Fent gtt for RASS -2 with PRN Versed F/U neuro recs, continue AED's Monitor LFT's TF's DVT Px: Eliquis FC, continue to discuss GOC Disposition: keep in ICU Time Spent (Minutes): 40 Notes Reviewed: ordinary seaman, cardio, ID, neuro Discussed with: nurses, consultants Critical Care - Objective Last 24 Hour Vital Signs Date Time Temp Pulse Resp B/P (MAP) Pulse Ox O2 Delivery O2 Flow Rate FiO2 08/30/19 13:16 103 45 96 Mechanical Ventilator 80 103 45 80 08/30/19 11:00 92 38 80 08/30/19 10:30 90 28 141/56 (84) 96 08/30/19 10:05 85 125/54 08/30/19 10:00 89 30 132/55 (80) 96 08/30/19 09:30 88 30 132/60 (84) 96 08/30/19 09:00 86 33 131/61 (84) 95 08/30/19 08:56 85 32 80 08/30/19 08:30 85 30 136/57 (83) 95 08/30/19 08:00 83 08/30/19 08:00 98.2 81 36 125/49 (74) 96 08/30/19 08:00 80 08/30/19 08:00 Mechanical Ventilator 08/30/19 07:30 84 29 124/56 (78) 95 08/30/19 07:27 99.0 08/30/19 07:15 85 30 95 Mechanical Ventilator 80 85 30 80 08/30/19 07:00 83 32 126/52 (76) 95 08/30/19 06:30 83 28 125/54 (77) 97 08/30/19 06:30 92 24 08/30/19 06:00 83 126/59 (81) 96 08/30/19 05:56 24 80 08/30/19 05:30 82 132/59 (83) 99 08/30/19 05:24 98 29 80 08/30/19 05:00 24 Mechanical Ventilator 80 08/30/19 05:00 86 128/46 (73) 96 08/30/19 04:30 86 28 125/64 (84) 96 08/30/19 04:00 80 08/30/19 04:00 99.0 86 28 126/60 (82) 97 08/30/19 04:00 97 08/30/19 04:00 Mechanical Ventilator 08/30/19 04:00 24 Mechanical Ventilator 80 08/30/19 03:30 90 28 136/64 (88) 97 08/30/19 03:05 91 27 80 08/30/19 03:00 91 25 140/60 (86) 97 08/30/19 03:00 24 Mechanical Ventilator 80 08/30/19 02:30 92 25 141/72 (95) 97 08/30/19 02:00 24 Mechanical Ventilator 80 08/30/19 02:00 89 25 135/65 (88) 96 08/30/19 01:30 90 28 140/70 (93) 95 08/30/19 01:08 94 26 95 Mechanical Ventilator 80 92 27 100 08/30/19 01:00 92 29 140/65 (90) 98 08/30/19 01:00 25 Mechanical Ventilator 80 08/30/19 00:30 94 23 142/67 (92) 97 08/30/19 00:00 94 08/30/19 00:00 Mechanical Ventilator 08/30/19 00:00 28 Mechanical Ventilator 80 08/30/19 00:00 70 08/30/19 00:00 99.8 95 24 149/87 (107) 97 08/29/19 23:30 94 23 151/69 (96) 97 08/29/19 23:24 95 27 100 08/29/19 23:00 89 22 131/65 (87) 97 08/29/19 23:00 26 Mechanical Ventilator 80 08/29/19 22:30 87 28 129/71 (90) 97 08/29/19 22:00 24 Mechanical Ventilator 70 08/29/19 22:00 93 23 137/53 (81) 97 08/29/19 21:30 94 21 139/58 (85) 97 08/29/19 21:00 24 Mechanical Ventilator 60 08/29/19 21:00 93 22 123/61 (81) 96 08/29/19 20:53 93 137/55 08/29/19 20:30 93 22 137/55 (82) 96 08/29/19 20:00 Mechanical Ventilator 08/29/19 20:00 100.0 91 22 127/59 (81) 96 08/29/19 20:00 92 28 95 Mechanical Ventilator 100 94 29 100 08/29/19 20:00 93 08/29/19 19:30 92 25 131/65 (87) 96 08/29/19 19:30 24 Mechanical Ventilator 60 08/29/19 19:00 18 Mechanical Ventilator 08/29/19 19:00 95 32 134/68 (90) 98 08/29/19 18:30 101 35 127/75 (92) 98 08/29/19 18:00 101 36 146/75 (98) 98 08/29/19 18:00 18 Mechanical Ventilator 08/29/19 17:30 96 30 140/70 (93) 93 08/29/19 17:27 97 30 60 08/29/19 17:00 94 30 134/71 (92) 93 08/29/19 17:00 18 Mechanical Ventilator 08/29/19 16:00 60 08/29/19 16:00 Mechanical Ventilator 08/29/19 16:00 100.3 97 30 130/70 (90) 93 08/29/19 16:00 18 Mechanical Ventilator 08/29/19 16:00 18 Mechanical Ventilator 08/29/19 16:00 101 08/29/19 15:30 99 31 136/73 (94) 93 08/29/19 15:00 101 32 145/70 (95) 93 08/29/19 15:00 18 Mechanical Ventilator 08/29/19 15:00 102 32 60 08/29/19 14:30 101 32 142/70 (94) 94 08/29/19 14:00 102 31 144/73 (96) 94 08/29/19 14:00 18 Mechanical Ventilator 08/29/19 13:30 102 33 146/76 (99) 94 Status: sedated - intubated Condition: critical HEENT: atraumatic - ETT OGT Neck: other - R IJ Lungs: other - on vent Heart: HR/BP unstable Micro: Microbiology Date/Time Source Procedure Growth Status 08/27/19 14:00 Sputum Gram Stain - Final Complete 08/27/19 14:00 Sputum Culture - Final Staphylococcus Aureus - Mrsa Complete Critical Care - Subjective ROS Limited/Unobtainable: Yes ICU Day: 10 Intubation Day: 11 Interval Events: On SIMV tachypneic FiO2 70 PEEP 8 Condition: critical IV Access: central EKG Rhythm: Sinus Tachycardia FI02: 80 Vent Support Breath Rate: 20 Vent Support Mode: IMV/SIMV Vent Tidal Volume: 400 Sputum Amount: Moderate PEEP: 7.0 PIP: 35 Fluids: SLIV Drips: Fent 80 Tube Feeding Amount: 50 I&O: Intake and Output 08/29/19 08/30/19 19:00 07:00 Intake Total 1130 ml 1221 ml Output Total 550 ml 610 ml Balance 580 ml 611 ml Free Water 120 ml 130 ml IV Total 410 ml 491 ml Tube Feeding 600 ml 600 ml Output Urine Total 550 ml 610 ml # Bowel Movements 2 7 Subjective: REYMUNDO ET-Tube: 7.5 ET Position: 25 Labs: Laboratory Tests Test 08/30/19 04:00 08/30/19 04:30 White Blood Count 11.1 K/UL (4.8-10.8) H Red Blood Count 3.51 M/UL (4.70-6.10) L Hemoglobin 10.8 G/DL (14.2-18.0) L Hematocrit 32.4 % (42.0-52.0) L Mean Corpuscular Volume 92 FL (80-99) Mean Corpuscular Hemoglobin 30.8 PG (27.0-31.0) Mean Corpuscular Hemoglobin Concent 33.4 G/DL (32.0-36.0) Red Cell Distribution Width 12.6 % (11.6-14.8) Platelet Count 302 K/UL (150-450) Mean Platelet Volume 6.7 FL (6.5-10.1) Neutrophils (%) (Auto) % (45.0-75.0) Lymphocytes (%) (Auto) % (20.0-45.0) Monocytes (%) (Auto) % (1.0-10.0) Eosinophils (%) (Auto) % (0.0-3.0) Basophils (%) (Auto) % (0.0-2.0) Differential Total Cells Counted 100 Neutrophils % (Manual) 81 % (45-75) H Lymphocytes % (Manual) 7 % (20-45) L Monocytes % (Manual) 6 % (1-10) Eosinophils % (Manual) 0 % (0-3) Basophils % (Manual) 0 % (0-2) Band Neutrophils 6 % (0-8) Platelet Estimate Adequate Platelet Morphology Normal Red Blood Cell Morphology Normal Sodium Level 146 MMOL/L (136-145) H Potassium Level 4.7 MMOL/L (3.5-5.1) Chloride Level 109 MMOL/L (98-107) H Carbon Dioxide Level 28 MMOL/L (21-32) Anion Gap 9 mmol/L (5-15) Blood Urea Nitrogen 20 mg/dL (7-18) H Creatinine 0.8 MG/DL (0.55-1.30) Estimat Glomerular Filtration Rate > 60 mL/min (>60) Glucose Level 229 MG/DL (74-106) H Calcium Level 8.0 MG/DL (8.5-10.1) L Phenytoin (Dilantin) Level 6.5 ug/mL (10-20) L Urine Color Brown Urine Appearance Clear Urine pH 6 (4.5-8.0) Urine Specific [place] 1.020 (1.005-1.035) Urine Protein 3+ (NEGATIVE) H Urine Glucose (UA) Negative (NEGATIVE) Urine Ketones 1+ (NEGATIVE) H Urine Blood 4+ (NEGATIVE) H Urine Nitrite Negative (NEGATIVE) Urine Bilirubin Negative (NEGATIVE) Urine Urobilinogen 4 MG/DL (0.0-1.0) H Urine Leukocyte Esterase 1+ (NEGATIVE) H Urine RBC 15-20 /HPF (0 - 0) H Urine WBC 2-4 /HPF (0 - 0) Urine Squamous Epithelial Cells Occasional /LPF Urine Bacteria Few /HPF (NONE) David Nash MD Aug 30, 2019 13:23
[2019-08-30] MEDS: Midazolam 2mg/2ml Inj IVP PRN (13:30)
--- NOTE | 2019-08-30 13:30 | NUR ---
NURSE NOTES: Pt was administered Versed per PRN order for agitation since respiratory rate was noted to be increased to 40-50. VS remain stable. Pt was seen by Dr Melendez. Per MD, ok to maintain pt on SIMV mode as long as pt is sedated. Fentanyl drip was titrated up to 200mcg/hr to maintain RASS score of -2 light sedation.
--- NOTE | 2019-08-30 14:48 | NUR ---
CASE MANAGEMENT: REVIEW 08/30/19 SI: MRSA SPUTUM (+) . RESPIRATORY D/T COVID-19 . HX CVA . SEIZURE PRECAUTIONS 99.0 86 28 126/60 97% ON MECHANICAL VENTILATOR FiO2 80 INV/SIMV 18 TV 400 PEEP 7 WBC 11.6 H/H 10.8/32.4 NA+ 146 BG 229 CA+ 8.0 IS:IV ZYVOX BID IV MEROPENEM TID IV DIFLUCAN QD IV FENTANYL QD IV VERSED Q2HR/PRN IV FENTANYL CITRATE BID IV SOLU-MEDROL 40mg BID LOPRESSOR GT BID PROVENTIL INH Q6HR ATROVENT INH Q6HR KEPPRA GT BID ELIQUIS GT BID FLOMAX PO QHS TYLENOL GT Q6HR SVETLANA-HEX 2% TP DQ \: INTENSIVE CARE UNIT DCP: [facility] WHEN STABLE PLAN: CONT VENT SUPPORT- WEAN VIA SIMV ADJUST FiO2 URINE CULTURES-IN PROGRESS MONITOR ON AND OFF NON-VIOLENT RESTRAINTS CHEST X-RAY IN AM
--- NOTE | 2019-08-30 18:00 | NUR ---
NURSE NOTES: Pt was cleaned, had BM small pasty/brown stool. Gown/bed linens were changed. Oral care was done. Pt was repositioned. VS remain stable while pt is maintained on Fentanyl drip at 200mcg/hr -2 light sedation on RASS score.
--- NOTE | 2019-08-30 18:38 | Neurology Progress Note ---
Interim History Interim History ROS Limited/Unobtainable: Yes Interim History intubated sedated Objective Physical Exam Last Vital Signs Date Time Temp Pulse Resp B/P (MAP) Pulse Ox O2 Delivery O2 Flow Rate FiO2 08/30/19 17:05 107 25 80 08/30/19 16:00 Mechanical Ventilator 08/30/19 16:00 152/69 (96) 94 08/30/19 12:00 98.8 08/29/19 10:22 45.0 Laboratory Tests Test 08/30/19 04:00 08/30/19 04:30 White Blood Count 11.1 K/UL (4.8-10.8) H Red Blood Count 3.51 M/UL (4.70-6.10) L Hemoglobin 10.8 G/DL (14.2-18.0) L Hematocrit 32.4 % (42.0-52.0) L Mean Corpuscular Volume 92 FL (80-99) Mean Corpuscular Hemoglobin 30.8 PG (27.0-31.0) Mean Corpuscular Hemoglobin Concent 33.4 G/DL (32.0-36.0) Red Cell Distribution Width 12.6 % (11.6-14.8) Platelet Count 302 K/UL (150-450) Mean Platelet Volume 6.7 FL (6.5-10.1) Neutrophils (%) (Auto) % (45.0-75.0) Lymphocytes (%) (Auto) % (20.0-45.0) Monocytes (%) (Auto) % (1.0-10.0) Eosinophils (%) (Auto) % (0.0-3.0) Basophils (%) (Auto) % (0.0-2.0) Differential Total Cells Counted 100 Neutrophils % (Manual) 81 % (45-75) H Lymphocytes % (Manual) 7 % (20-45) L Monocytes % (Manual) 6 % (1-10) Eosinophils % (Manual) 0 % (0-3) Basophils % (Manual) 0 % (0-2) Band Neutrophils 6 % (0-8) Platelet Estimate Adequate Platelet Morphology Normal Red Blood Cell Morphology Normal Sodium Level 146 MMOL/L (136-145) H Potassium Level 4.7 MMOL/L (3.5-5.1) Chloride Level 109 MMOL/L (98-107) H Carbon Dioxide Level 28 MMOL/L (21-32) Anion Gap 9 mmol/L (5-15) Blood Urea Nitrogen 20 mg/dL (7-18) H Creatinine 0.8 MG/DL (0.55-1.30) Estimat Glomerular Filtration Rate > 60 mL/min (>60) Glucose Level 229 MG/DL (74-106) H Calcium Level 8.0 MG/DL (8.5-10.1) L Phenytoin (Dilantin) Level 6.5 ug/mL (10-20) L Urine Color Brown Urine Appearance Clear Urine pH 6 (4.5-8.0) Urine Specific Mclean 1.020 (1.005-1.035) Urine Protein 3+ (NEGATIVE) H Urine Glucose (UA) Negative (NEGATIVE) Urine Ketones 1+ (NEGATIVE) H Urine Blood 4+ (NEGATIVE) H Urine Nitrite Negative (NEGATIVE) Urine Bilirubin Negative (NEGATIVE) Urine Urobilinogen 4 MG/DL (0.0-1.0) H Urine Leukocyte Esterase 1+ (NEGATIVE) H Urine RBC 15-20 /HPF (0 - 0) H Urine WBC 2-4 /HPF (0 - 0) Urine Squamous Epithelial Cells Occasional /LPF Urine Bacteria Few /HPF (NONE) Neurologic Exam Objective intubated, sedated, minimal withdraw cc 35 min Impression/Recommendations Problems: (1) Suspected 2019 novel coronavirus infection (2) Multi-infarct dementia (3) Uncontrolled seizures (4) History of CVA (cerebrovascular accident) (5) Acute encephalopathy (6) Aspiration pneumonia (7) Respiratory failure Diagnostic Impression icu level of care cont keppra and dilantin Monitor for seizures covid ro started atb wean off sedation when able Ivan Rose MD Aug 30, 2019 18:38
--- NOTE | 2019-08-30 19:30 | NUR ---
HAND-OFF: Report given to Jamey PAULSON. Endorsed plan of care.
--- NOTE | 2019-08-30 20:00 | NUR ---
NURSE NOTES: PATIENT SEDATED, ASLEEP STATUS.
--- NOTE | 2019-08-30 20:37 | Surgery Progress Note ---
Surgery Progress Note Subjective Additional Comments tachycardic leukocytosis exam unchanged il appearing Objective Last 24 Hour Vital Signs Date Time Temp Pulse Resp B/P (MAP) Pulse Ox O2 Delivery O2 Flow Rate FiO2 08/30/19 19:25 107 22 95 Mechanical Ventilator 80 103 26 80 08/30/19 19:00 107 22 130/77 (94) 93 08/30/19 18:30 107 24 135/77 (96) 93 08/30/19 18:00 108 24 142/75 (97) 93 08/30/19 17:30 107 24 146/77 (100) 94 08/30/19 17:05 107 25 80 08/30/19 17:00 99.4 108 24 148/76 (100) 94 08/30/19 16:00 Mechanical Ventilator 08/30/19 16:00 107 08/30/19 16:00 80 08/30/19 16:00 107 25 152/69 (96) 94 08/30/19 15:30 107 27 141/82 (101) 94 08/30/19 15:00 107 29 155/74 (101) 94 08/30/19 14:43 106 31 80 08/30/19 14:30 107 34 158/76 (103) 94 08/30/19 14:00 108 41 154/79 (104) 94 08/30/19 13:30 105 43 135/68 (90) 95 08/30/19 13:16 103 45 96 Mechanical Ventilator 80 103 45 80 08/30/19 13:00 103 41 166/72 (103) 96 08/30/19 12:30 101 42 163/71 (101) 96 08/30/19 12:00 Mechanical Ventilator 08/30/19 12:00 95 08/30/19 12:00 80 08/30/19 12:00 98.8 96 26 148/71 (96) 96 08/30/19 11:30 93 21 152/62 (92) 97 08/30/19 11:00 92 38 80 08/30/19 11:00 91 37 140/68 (92) 96 08/30/19 10:30 90 28 141/56 (84) 96 08/30/19 10:05 85 125/54 08/30/19 10:00 89 30 132/55 (80) 96 08/30/19 09:30 88 30 132/60 (84) 96 08/30/19 09:00 86 33 131/61 (84) 95 08/30/19 08:56 85 32 80 08/30/19 08:30 85 30 136/57 (83) 95 08/30/19 08:00 83 08/30/19 08:00 98.2 81 36 125/49 (74) 96 08/30/19 08:00 80 08/30/19 08:00 Mechanical Ventilator 08/30/19 07:30 84 29 124/56 (78) 95 08/30/19 07:27 99.0 08/30/19 07:15 85 30 95 Mechanical Ventilator 80 85 30 80 08/30/19 07:00 83 32 126/52 (76) 95 08/30/19 06:30 83 28 125/54 (77) 97 08/30/19 06:30 92 24 08/30/19 06:00 83 126/59 (81) 96 08/30/19 05:56 24 80 08/30/19 05:30 82 132/59 (83) 99 08/30/19 05:24 98 29 80 08/30/19 05:00 24 Mechanical Ventilator 80 08/30/19 05:00 86 128/46 (73) 96 08/30/19 04:30 86 28 125/64 (84) 96 08/30/19 04:00 80 08/30/19 04:00 99.0 86 28 126/60 (82) 97 08/30/19 04:00 97 08/30/19 04:00 Mechanical Ventilator 08/30/19 04:00 24 Mechanical Ventilator 80 08/30/19 03:30 90 28 136/64 (88) 97 08/30/19 03:05 91 27 80 08/30/19 03:00 91 25 140/60 (86) 97 08/30/19 03:00 24 Mechanical Ventilator 80 08/30/19 02:30 92 25 141/72 (95) 97 08/30/19 02:00 24 Mechanical Ventilator 80 08/30/19 02:00 89 25 135/65 (88) 96 08/30/19 01:30 90 28 140/70 (93) 95 08/30/19 01:08 94 26 95 Mechanical Ventilator 80 92 27 100 08/30/19 01:00 92 29 140/65 (90) 98 08/30/19 01:00 25 Mechanical Ventilator 80 08/30/19 00:30 94 23 142/67 (92) 97 08/30/19 00:00 94 08/30/19 00:00 Mechanical Ventilator 08/30/19 00:00 28 Mechanical Ventilator 80 08/30/19 00:00 70 08/30/19 00:00 99.8 95 24 149/87 (107) 97 08/29/19 23:30 94 23 151/69 (96) 97 08/29/19 23:24 95 27 100 08/29/19 23:00 89 22 131/65 (87) 97 08/29/19 23:00 26 Mechanical Ventilator 80 08/29/19 22:30 87 28 129/71 (90) 97 08/29/19 22:00 24 Mechanical Ventilator 70 08/29/19 22:00 93 23 137/53 (81) 97 08/29/19 21:30 94 21 139/58 (85) 97 08/29/19 21:00 24 Mechanical Ventilator 60 08/29/19 21:00 93 22 123/61 (81) 96 08/29/19 20:53 93 137/55 I&O Intake and Output 08/29/19 08/30/19 19:00 07:00 Intake Total 1130 ml 1221 ml Output Total 550 ml 610 ml Balance 580 ml 611 ml Free Water 120 ml 130 ml IV Total 410 ml 491 ml Tube Feeding 600 ml 600 ml Output Urine Total 550 ml 610 ml # Bowel Movements 2 7 Dressing: other Wound: other Drains: other Cardiovascular: RSR Respiratory: decreased breath sounds Abdomen: soft, non-tender, present bowel sounds Extremities: no cyanosis Laboratory Tests Test 08/30/19 04:00 08/30/19 04:30 White Blood Count 11.1 K/UL (4.8-10.8) H Red Blood Count 3.51 M/UL (4.70-6.10) L Hemoglobin 10.8 G/DL (14.2-18.0) L Hematocrit 32.4 % (42.0-52.0) L Mean Corpuscular Volume 92 FL (80-99) Mean Corpuscular Hemoglobin 30.8 PG (27.0-31.0) Mean Corpuscular Hemoglobin Concent 33.4 G/DL (32.0-36.0) Red Cell Distribution Width 12.6 % (11.6-14.8) Platelet Count 302 K/UL (150-450) Mean Platelet Volume 6.7 FL (6.5-10.1) Neutrophils (%) (Auto) % (45.0-75.0) Lymphocytes (%) (Auto) % (20.0-45.0) Monocytes (%) (Auto) % (1.0-10.0) Eosinophils (%) (Auto) % (0.0-3.0) Basophils (%) (Auto) % (0.0-2.0) Differential Total Cells Counted 100 Neutrophils % (Manual) 81 % (45-75) H Lymphocytes % (Manual) 7 % (20-45) L Monocytes % (Manual) 6 % (1-10) Eosinophils % (Manual) 0 % (0-3) Basophils % (Manual) 0 % (0-2) Band Neutrophils 6 % (0-8) Platelet Estimate Adequate Platelet Morphology Normal Red Blood Cell Morphology Normal Sodium Level 146 MMOL/L (136-145) H Potassium Level 4.7 MMOL/L (3.5-5.1) Chloride Level 109 MMOL/L (98-107) H Carbon Dioxide Level 28 MMOL/L (21-32) Anion Gap 9 mmol/L (5-15) Blood Urea Nitrogen 20 mg/dL (7-18) H Creatinine 0.8 MG/DL (0.55-1.30) Estimat Glomerular Filtration Rate > 60 mL/min (>60) Glucose Level 229 MG/DL (74-106) H Calcium Level 8.0 MG/DL (8.5-10.1) L Phenytoin (Dilantin) Level 6.5 ug/mL (10-20) L Urine Color Brown Urine Appearance Clear Urine pH 6 (4.5-8.0) Urine Specific [place] 1.020 (1.005-1.035) Urine Protein 3+ (NEGATIVE) H Urine Glucose (UA) Negative (NEGATIVE) Urine Ketones 1+ (NEGATIVE) H Urine Blood 4+ (NEGATIVE) H Urine Nitrite Negative (NEGATIVE) Urine Bilirubin Negative (NEGATIVE) Urine Urobilinogen 4 MG/DL (0.0-1.0) H Urine Leukocyte Esterase 1+ (NEGATIVE) H Urine RBC 15-20 /HPF (0 - 0) H Urine WBC 2-4 /HPF (0 - 0) Urine Squamous Epithelial Cells Occasional /LPF Urine Bacteria Few /HPF (NONE) Plan Problems: (1) Decubitus skin ulcer Assessment & Plan: Patient presented on admission with Sacral DTPI. Base of wound is purple with maroon borders. Unstageable pressure injury Plantar L heel . Base of wound is necrotic with marginal erythema along borders. Non-blanching erythema R heel. Sacral DTPI now evolving since admission. Several opening within base of wound. No exudate noted. Open areas are moist and jason. Surrounding base of wound is purple with erythema along borders. Unstageable Pressure injury Plantar L heel. Base of wound is necrotic. Edges adherent to base of wound. Tx.Plan: Cleanse Sacral wound with Saline. Apply Therahoney. Apply Moisture Barrier Paste periwound. Cover with Optifoam drsg. Change every 3 days and prn. Apply Betadine to Plantar L heel. Cover with Optifoam drsg. Change every 3 days and prn. Apply Cavilon Skin Barrier R heel. Cover with Optifoam drsg. Change every 7 days and prn. Reposition at least every 2hours or as tolerated Off-load heels with pillow. Nutritional optimization will follow with recs air mattress once off isolation DAILY ESTIMATED NEEDS: Needs based on Critical care, Wounds/ 53kg abw 22-28 kcals/kg 9575-1700 total kcals 1.25-2 g protein/kg 66-106 g total protein 25-30 mL/kg 7295-8816 total fluid mLs NUTRITION DIAGNOSIS: * Swallowing difficulty R/T dysphagia as evidenced by PEG dep, s/p intubation, on GT feeding. * Increased kcal/prot needs R/T wound healing as evidenced by pt admitted w/ evolving DTPI sacral wound and unstageable lt heel wound. CURRENT TF:Glucerna 1.2 @50ml/hr x22 hrs ENTERAL NUTRITION RECOMMENDATIONS: Glucerna 1.2 @ 50ml/hr x 22 hrs (hold 1 hr before and after Dilantin QD) to provide 1100ml, 1320kcal, 66g prot, 886ml free water * Maintain Glucerna 1.2 for carb control, BGs elevated. * Hold 1 hr before and after Dilantin med * HOB over 30 degrees/ without IVF, H20 flush of 150ml q 6 hrs FOR 24 HRS TF RUN WITHOUT DILANTIN (Dilantin currently held) : okay to keep the same TF rate of Glucerna 1.2 @ 50ml/hr x 24 hrs to provide 1200ml, 1440kcal, 72g prot 966ml free water -> will still meet 100% est kcal/prot needs ADDITIONAL RECOMMENDATIONS: * Per SNF record, ht is 60", wt is 149lbs (08/14/19) Rec calibrated bedscale wt * Rec NISS w/ TF: BGs elevated, now on Solumedrol * Wound healing: add Vit C 500mg QD + Giancarlo 1pkt BID via PEG * Monitor lytes, replete as needed . (2) Multi-infarct dementia (3) Uncontrolled seizures (4) History of CVA (cerebrovascular accident) (5) Acute encephalopathy (6) Aspiration pneumonia Assessment & Plan: Interval worsening of aeration with increasing interstitial and patchy bilateral airspace disease. Findings may be on the basis of worsening CHF/pulmonary edema although multifocal pneumonia must also be considered. Endotracheal tube injection is a central line remain in place. 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 (7) Respiratory failure (8) Suspected 2019 novel coronavirus infection Assessment & Plan: testing (9) Abdominal distension Assessment & Plan: pending KUB +BM juanly obstruction will monitor Sundeep Benavidez Aug 30, 2019 20:37
--- NOTE | 2019-08-30 21:10 | NUR ---
NURSE NOTES: LE: PATIENT SEDATED, ON ETT TO VENT, SIMV 20/PS 10/TV 400/ FIO2 80%/PEEP 7, O2 SATURATION 94% NOTED, HEART RATE 100'S/MIN ST W/1 ST AVB, ABDOMEN SOFT, G TUBE INTACT AND PATENT, ONGOING GLUCERNA 1.2 AT 50ML/HR, NO RESIDUE NOTED, F/C INTACT AND PATENT, DIANELYS COLOR URINE OUTED, TLC TO RIGHT IJ, INTACT AND PATENT, ONGOING FENTANYL 200MCG/HR VIA TLC, ON P200 BED, 2 POINT SOFT RESTRAINTS STATUS, MADE LOWER BED ALARM AND LOCKED, PLACED CALL LIGHT WITHIN REACH, WILL CONTINUE TO MONITOR.
[2019-08-30] MEDS: Tamsulosin 0.4mg cap ORAL SCH (21:20)
[2019-08-30] MEDS: Dyna-Hex 2% Top Sol 2oz TOPIC SCH (21:23)
--- NOTE | 2019-08-30 23:20 | NUR ---
NURSE NOTES: PATIENT SEDATED, KEPT RASS SCORE -2 PER PROTOCOLS, NO DISTRESS NOTED AT THIS TIME.
[2019-08-31] VITALS (47 sets, daily range): BP systolic 65–160; BP diastolic 13–102
[2019-08-31] MEDS: Ipratropium Bromide Inhaler INH SCH ×4 (00:32→20:06)
[2019-08-31] MEDS: Albuterol 90mcg Inhaler 8gm INH SCH ×4 (00:33→20:06)
--- NOTE | 2019-08-31 01:20 | NUR ---
NURSE NOTES: LE: PATIENT ASLEEP STATUS, NO PAIN NOTED, ONGOING FENTANYL 200MCG/HR VIA TLC, WILL CONTINUE TO MONITOR.
--- NOTE | 2019-08-31 03:00 | NUR ---
NURSE NOTES: KEPT RASS SCORE -2, NO DISTRESS NOTED AT THIS TIME.
--- NOTE | 2019-08-31 04:30 | NUR ---
NURSE NOTES: LE: MORNING CARE AND ORAL CARE WAS DONE, NO RESISTANCE TO CARE.
[2019-08-31] MEDS: Meropenem 1 GM in NS 55 ML IVPB SCH ×3 (06:08→21:34)
[2019-08-31 06:40] LABS: HEMATOCRIT 34.1 % (42.0-52.0); HEMOGLOBIN 11.3 G/DL (14.2-18.0); MEAN CORPUSCULAR VOLUME 94 FL (80-99); PLATELET COUNT 349 K/UL (150-450); RED BLOOD COUNT 3.63 M/UL (4.70-6.10); WHITE BLOOD COUNT 12.1 K/UL (4.8-10.8)
[2019-08-31 06:54] LABS: ANION GAP 5 mmol/L (5-15); BLOOD UREA NITROGEN 23 mg/dL (7-18); CALCIUM 8.6 MG/DL (8.5-10.1); CARBON DIOXIDE 32 MMOL/L (21-32); CHLORIDE 107 MMOL/L (98-107); CREATININE 0.8 MG/DL (0.55-1.30); POTASSIUM 4.9 MMOL/L (3.5-5.1); SODIUM 144 MMOL/L (136-145)
--- NOTE | 2019-08-31 07:18 | NUR ---
HAND-OFF: Report given to Dayday BALLARD RN.
--- NOTE | 2019-08-31 07:19 | NUR ---
NURSE NOTES: Received patient from LORENE Concepcion. Patient sedated with RASS score -2. Patient on fentanyl at 200mcg/hr. Patient orally intubated with ET tube 7.5 with 25cm at the lip line. Patient on ventilator setting SIMV/IMV 20, pressure support 10, tidal volume 400, FiO2 80%, and PEEP 7. Patient SpO2 91-92%. RR 24. Patient showing sinus tachycardia on the twill cutter with 1st degree heart block. Patient has right internal jugular central line that is patent, asymptomatic, and running fentanyl. Patient has sacral DTI and left heel unstagable wound. both covered with dressing that is dry and intact. Patient has verduzco for urine retention that is patent and draining dark jaclyn urine at this time. Patient bed in low position with bed alarm on and call light in reach at this time. oral care and reposition done. Will continue to monitor.
[2019-08-31] MEDS: Eliquis 2.5mg tablet GT SCH ×2 (09:06→17:11)
[2019-08-31] MEDS: levETIRAcetam 500mg/5ml Liquid GT SCH ×2 (09:06→21:04)
[2019-08-31] MEDS: Solu-MEDROL 40mg Inj IVP SCH ×2 (09:06→21:05)
[2019-08-31] MEDS: Metoprolol Tartrate 50mg tab GT SCH ×2 (09:07→21:00)
[2019-08-31] MEDS: Phenytoin Susp 100mg/4ml GT SCH (09:37)
--- NOTE | 2019-08-31 10:00 | NUR ---
NURSE NOTES: vital signs stable. Will continue to monitor.
--- NOTE | 2019-08-31 10:03 | Diagnostic Imaging Report ---
EXAM: XR Chest, 1 View CLINICAL HISTORY: INFECT TECHNIQUE: Frontal view of the chest. COMPARISON: Chest x-rays dated 08/28/19 FINDINGS: Lungs: No significant change in bilateral multilobar peripheral opacities and consolidation. Pulmonary vascular congestion. Pleural space: Possible small layering left pleural effusion. Heart: Unremarkable. No cardiomegaly. Mediastinum: Unremarkable. Bones/joints: Patient is status post median sternotomy for heart valve replacement. Vasculature: Atherosclerotic calcifications are noted within the aortic arch. Tubes, lines and devices: Stable positioning of endotracheal tube and of a right IJ approach central venous catheter. Telemetry leads overlie the thorax. IMPRESSION: 1. No significant change in bilateral multilobar peripheral opacities and consolidation. 2. Possible small layering left pleural effusion. 3. Pulmonary vascular congestion.
[2019-08-31] MEDS: fentaNYL Citrate 2500mcg in NS 250ml IV SCH (11:14)
--- NOTE | 2019-08-31 12:00 | NUR ---
NURSE NOTES: Patient sedated with RASS score -2. Patient on fentanyl at 200mcg/hr. Patient remains orally intubated with ET tube 7.5 with 25cm at the lip line. Ventilator setting SIMV/IMV 20, pressure support 10, tidal volume 400, FiO2 80%, and PEEP 7. Patient SpO2 91-92%. RR 24. 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 Right internal jugular central line patent, asymptomatic, and running fentanyl. All wound dressing dry and intact. Swartz remains patent and draining dark jaclyn urine at this time. Patient bed in low position with bed alarm on and call light in reach at this time. oral care and reposition done. Will continue to monitor.
[2019-08-31] MEDS: Acetaminophen 650mg/20.3ml GT PRN (12:28)
--- NOTE | 2019-08-31 13:35 | General Progress Note ---
Assessment/Plan Assessment/Plan: 83YO M with HTN, HLD, COPD, CAD, Seizure disorder presenting with cough and shortness of breath. In the ED, patient was found to be tachycardic (130's) and tachypnic (33) and febrile at 101.2. #Hypoxemic acute respiratory failure #Septic shock #Covid19 positive #transaminitis - likely 2/2 to above, downtrending/stable #Fevers - improved #Drug reaction/Red Man syndrome - resolved -Appreciate ICU care -Pulm/CCM eval appreciated -Cont. contact plus droplet isolation. -Continuous cardiac cath lab technologist. -Continue vent management per the ICU team, daily SBT -s/p Plaquenil -08/25 CXR reviewed, worsening b/l infiltrates -08/27 CXR w/Interval worsening of aeration with increasing interstitial and patchy bilateral airspace disease -08/26 BCx NGTD -08/26 SCx GPC -ID: cont. Zyvox, meropenem and Diflucan -ID and Pulm following, recs appreciated #Abdominal distension - improved, likely Ileus -KUB reviewed -d/w general sx, likely ileus #History of Seizure disorder: -cont Dilantin and Keppra -Neurology following #Hypokalemia - resolved -replaced -ctm, replace PRN #Accelerated HTN - resolved #HLD #CAD #Eliquis use #Atrial flutter with rapid ventricular response #elevated troponins likely 2/2 demand ischemia, down trending -MTP 50 BID, hydralazine PRN -Eliquis 2.5 -Cardio following, recs appreciated #Sacral Decubitus Ulcer -general sx/wound care following -recs appreciated prognosis guarded I spent 70 minutes on this patient's case, and 38 mins was dedicated to critical care. Critical Care Services performed include: Telemetry Review Hemodynamic measurement interpretation Laboratory data review and interpretation Radiology image review and interpretation Ventilator setting review, management, and adjustment Discussion of patient's care with ICU team, ICU Nursing staff and/or consulting services including General surgery regarding radiology imaging results. Subjective Date patient seen: Aug 31, 2019 Time patient seen: 08:00 ROS Limited/Unobtainable: Yes Allergies: Coded Allergies: No Known Allergies (Unverified , 02/29/16) Subjective Covering for Dr. Leal Follow up for acute hypoxic resp failure, septic shock, COVID-19 positive Patient remains intubated No acute events overnight, discussed with RN Objective Last 24 Hour Vital Signs Date Time Temp Pulse Resp B/P (MAP) Pulse Ox O2 Delivery O2 Flow Rate FiO2 08/31/19 13:00 27 Mechanical Ventilator 80 08/31/19 13:00 106 25 137/87 (104) 92 08/31/19 12:45 106 23 91 Mechanical Ventilator 80 109 28 80 08/31/19 12:30 107 24 147/74 (98) 92 08/31/19 12:00 101.2 108 23 154/76 (102) 91 08/31/19 12:00 28 Mechanical Ventilator 80 08/31/19 12:00 80 08/31/19 12:00 106 08/31/19 11:30 107 26 149/85 (106) 91 08/31/19 11:14 25 Mechanical Ventilator 80 08/31/19 11:12 105 25 80 08/31/19 11:00 105 26 160/81 (107) 91 08/31/19 11:00 26 Mechanical Ventilator 80 08/31/19 10:30 107 25 156/88 (110) 91 08/31/19 10:00 35 Mechanical Ventilator 80 08/31/19 10:00 106 24 135/88 (104) 92 08/31/19 09:30 107 24 159/80 (106) 92 08/31/19 09:11 106 23 80 08/31/19 09:07 106 140/72 08/31/19 09:00 104 22 140/72 (94) 93 08/31/19 09:00 25 Mechanical Ventilator 80 08/31/19 08:30 102 22 141/87 (105) 93 08/31/19 08:00 99.1 103 22 138/70 (92) 93 08/31/19 08:00 102 08/31/19 08:00 25 Mechanical Ventilator 80 08/31/19 08:00 Mechanical Ventilator 08/31/19 08:00 80 08/31/19 07:38 101 23 95 Mechanical Ventilator 80 103 23 80 08/31/19 07:00 21 Mechanical Ventilator 80 08/31/19 07:00 101 21 142/76 (98) 94 08/31/19 06:30 103 21 148/83 (104) 94 08/31/19 06:30 103 21 08/31/19 06:00 103 20 138/79 (98) 94 08/31/19 06:00 20 Mechanical Ventilator 80 08/31/19 05:30 105 21 144/73 (96) 94 08/31/19 05:00 105 22 135/80 (98) 94 08/31/19 05:00 22 Mechanical Ventilator 80 08/31/19 04:30 106 22 133/80 (97) 94 08/31/19 04:00 Mechanical Ventilator 08/31/19 04:00 24 Mechanical Ventilator 80 08/31/19 04:00 99.6 110 24 149/74 (99) 93 08/31/19 04:00 80 08/31/19 03:30 108 23 138/72 (94) 93 08/31/19 03:29 108 08/31/19 03:25 108 23 80 08/31/19 03:00 110 20 140/68 (92) 93 08/31/19 03:00 20 Mechanical Ventilator 80 08/31/19 02:30 112 21 139/66 (90) 93 08/31/19 02:00 111 21 129/72 (91) 94 08/31/19 02:00 21 Mechanical Ventilator 80 08/31/19 01:30 111 21 143/74 (97) 94 08/31/19 01:00 22 Mechanical Ventilator 80 08/31/19 01:00 111 22 150/79 (102) 94 08/31/19 00:33 110 24 94 Mechanical Ventilator 80 111 26 80 08/31/19 00:30 109 21 145/68 (93) 93 08/31/19 00:00 99.0 109 22 153/82 (105) 92 08/31/19 00:00 80 08/31/19 00:00 22 80 08/31/19 00:00 Mechanical Ventilator 08/30/19 23:30 108 23 154/82 (106) 92 08/30/19 23:00 108 23 152/82 (105) 92 08/30/19 23:00 21 Mechanical Ventilator 80 08/30/19 22:57 106 24 80 08/30/19 22:30 105 23 151/77 (101) 93 08/30/19 22:00 26 Mechanical Ventilator 80 08/30/19 22:00 106 26 143/70 (94) 92 08/30/19 21:30 106 29 143/69 (93) 93 08/30/19 21:20 108 148/74 08/30/19 21:00 24 Mechanical Ventilator 80 08/30/19 21:00 98.4 108 24 146/74 (98) 93 08/30/19 20:30 108 22 145/72 (96) 93 08/30/19 20:10 108 08/30/19 20:00 80 08/30/19 20:00 Mechanical Ventilator 08/30/19 20:00 22 Mechanical Ventilator 80 08/30/19 20:00 108 22 132/78 (96) 93 08/30/19 19:30 108 22 146/74 (98) 92 08/30/19 19:25 107 22 95 Mechanical Ventilator 80 103 26 80 08/30/19 19:00 107 22 130/77 (94) 93 08/30/19 19:00 20 Mechanical Ventilator 08/30/19 18:30 107 24 135/77 (96) 93 08/30/19 18:00 108 24 142/75 (97) 93 08/30/19 18:00 25 Mechanical Ventilator 08/30/19 17:30 107 24 146/77 (100) 94 08/30/19 17:05 107 25 80 08/30/19 17:00 25 Mechanical Ventilator 08/30/19 17:00 99.4 108 24 148/76 (100) 94 08/30/19 16:00 Mechanical Ventilator 08/30/19 16:00 25 Mechanical Ventilator 08/30/19 16:00 107 08/30/19 16:00 80 08/30/19 16:00 107 25 152/69 (96) 94 08/30/19 15:30 107 27 141/82 (101) 94 08/30/19 15:00 107 29 155/74 (101) 94 08/30/19 15:00 25 Mechanical Ventilator 08/30/19 14:43 106 31 80 08/30/19 14:30 107 34 158/76 (103) 94 08/30/19 14:00 108 41 154/79 (104) 94 08/30/19 14:00 25 Mechanical Ventilator 08/30/19 13:30 35 Mechanical Ventilator 08/30/19 13:30 105 43 135/68 (90) 95 Intake and Output 08/30/19 08/31/19 19:00 07:00 Intake Total 1486 ml 1330 ml Output Total 570 ml 740 ml Balance 916 ml 590 ml Free Water 100 ml IV Total 786 ml 650 ml Tube Feeding 600 ml 600 ml Other 80 ml Output Urine Total 570 ml 740 ml # Bowel Movements 3 1 Laboratory Tests 08/31/19 04:00: White Blood Count 12.1H, Red Blood Count 3.63L, Hemoglobin 11.3L, Hematocrit 34.1L, Mean Corpuscular Volume 94, Mean Corpuscular Hemoglobin 31.2H, Mean Corpuscular Hemoglobin Concent 33.3, Red Cell Distribution Width 13.0, Platelet Count 349, Mean Platelet Volume 7.1, Neutrophils (%) (Auto) , Lymphocytes (%) ( Auto) , Monocytes (%) (Auto) , Eosinophils (%) (Auto) , Basophils (%) (Auto) , Differential Total Cells Counted 100, Neutrophils % (Manual) 87H, Lymphocytes % (Manual) 6L, Monocytes % (Manual) 6, Eosinophils % (Manual) 0, Basophils % ( Manual) 0, Myelocytes % 1H, Band Neutrophils 0, Platelet Estimate Adequate, Platelet Morphology Normal, Red Blood Cell Morphology Normal, Sodium Level 144, Potassium Level 4.9, Chloride Level 107, Carbon Dioxide Level 32, Anion Gap 5, Blood Urea Nitrogen 23H, Creatinine 0.8, Estimat Glomerular Filtration Rate > 60 , Glucose Level 190H, Calcium Level 8.6 Height (Feet): 5 Height (Inches): 8.00 Weight (Pounds): 165 General Appearance: lethargic Neck: normal alignment, supple Cardiovascular: normal rate, regular rhythm Respiratory/Chest: lungs clear, normal breath sounds Sergo Demarco MD Aug 31, 2019 13:34
[2019-08-31] MEDS ORDERED: NS 275ml ONE (13:46)
[2019-08-31] MEDS ORDERED: Sterile Water Irrig 1000ml IRRIG ONE (13:46)
--- NOTE | 2019-08-31 14:47 | Pulmonolgy Critical Care Note ---
Critical Care - Asmt/Plan Problems: (1) Respiratory failure (2) Suspected 2019 novel coronavirus infection (3) History of CVA (cerebrovascular accident) (4) Acute encephalopathy (5) Multi-infarct dementia (6) Uncontrolled seizures Assessment/Plan: Continue ventilatory support ---> wean via SIMV Monitor gas exchange STRONGLY CONSIDER HHN's in line with Vent Dec SM 20 IV BID (D7) and taper Completed 5 days of Plaquenil Zyvox/Candis/Flucon per ID Daily CRP and ferritin D/W pharmacy RE: Tociluzumab - per pharmacist on national shortage and cannot get, will continue to follow up Remdesivir limited to trial, cannot get under compassionate care Monitor volumes and renal function ICU sedation: Fent gtt for RASS -2 with PRN Versed F/U neuro recs, continue AED's Monitor LFT's TF's DVT Px: Eliquis FC, continue to discuss GOC Critical Care - Objective Last 24 Hour Vital Signs Date Time Temp Pulse Resp B/P (MAP) Pulse Ox O2 Delivery O2 Flow Rate FiO2 08/31/19 13:00 27 Mechanical Ventilator 80 08/31/19 13:00 106 25 137/87 (104) 92 08/31/19 12:45 106 23 91 Mechanical Ventilator 80 109 28 80 08/31/19 12:30 107 24 147/74 (98) 92 08/31/19 12:00 101.2 108 23 154/76 (102) 91 08/31/19 12:00 28 Mechanical Ventilator 80 08/31/19 12:00 80 08/31/19 12:00 106 08/31/19 11:30 107 26 149/85 (106) 91 08/31/19 11:14 25 Mechanical Ventilator 80 08/31/19 11:12 105 25 80 08/31/19 11:00 105 26 160/81 (107) 91 08/31/19 11:00 26 Mechanical Ventilator 80 08/31/19 10:30 107 25 156/88 (110) 91 08/31/19 10:00 35 Mechanical Ventilator 80 08/31/19 10:00 106 24 135/88 (104) 92 08/31/19 09:30 107 24 159/80 (106) 92 08/31/19 09:11 106 23 80 08/31/19 09:07 106 140/72 4/18/20 09:00 104 22 140/72 (94) 93 08/31/19 09:00 25 Mechanical Ventilator 80 08/31/19 08:30 102 22 141/87 (105) 93 08/31/19 08:00 99.1 103 22 138/70 (92) 93 08/31/19 08:00 102 08/31/19 08:00 25 Mechanical Ventilator 80 08/31/19 08:00 Mechanical Ventilator 08/31/19 08:00 80 08/31/19 07:38 101 23 95 Mechanical Ventilator 80 103 23 80 08/31/19 07:00 21 Mechanical Ventilator 80 08/31/19 07:00 101 21 142/76 (98) 94 08/31/19 06:30 103 21 148/83 (104) 94 08/31/19 06:30 103 21 08/31/19 06:00 103 20 138/79 (98) 94 08/31/19 06:00 20 Mechanical Ventilator 80 08/31/19 05:30 105 21 144/73 (96) 94 08/31/19 05:00 105 22 135/80 (98) 94 08/31/19 05:00 22 Mechanical Ventilator 80 08/31/19 04:30 106 22 133/80 (97) 94 08/31/19 04:00 Mechanical Ventilator 08/31/19 04:00 24 Mechanical Ventilator 80 08/31/19 04:00 99.6 110 24 149/74 (99) 93 08/31/19 04:00 80 08/31/19 03:30 108 23 138/72 (94) 93 08/31/19 03:29 108 08/31/19 03:25 108 23 80 08/31/19 03:00 110 20 140/68 (92) 93 08/31/19 03:00 20 Mechanical Ventilator 80 08/31/19 02:30 112 21 139/66 (90) 93 08/31/19 02:00 111 21 129/72 (91) 94 08/31/19 02:00 21 Mechanical Ventilator 80 08/31/19 01:30 111 21 143/74 (97) 94 08/31/19 01:00 22 Mechanical Ventilator 80 08/31/19 01:00 111 22 150/79 (102) 94 08/31/19 00:33 110 24 94 Mechanical Ventilator 80 111 26 80 08/31/19 00:30 109 21 145/68 (93) 93 08/31/19 00:00 99.0 109 22 153/82 (105) 92 08/31/19 00:00 80 08/31/19 00:00 22 80 08/31/19 00:00 Mechanical Ventilator 08/30/19 23:30 108 23 154/82 (106) 92 08/30/19 23:00 108 23 152/82 (105) 92 08/30/19 23:00 21 Mechanical Ventilator 80 08/30/19 22:57 106 24 80 08/30/19 22:30 105 23 151/77 (101) 93 08/30/19 22:00 26 Mechanical Ventilator 80 08/30/19 22:00 106 26 143/70 (94) 92 08/30/19 21:30 106 29 143/69 (93) 93 08/30/19 21:20 108 148/74 08/30/19 21:00 24 Mechanical Ventilator 80 08/30/19 21:00 98.4 108 24 146/74 (98) 93 08/30/19 20:30 108 22 145/72 (96) 93 08/30/19 20:10 108 08/30/19 20:00 80 08/30/19 20:00 Mechanical Ventilator 08/30/19 20:00 22 Mechanical Ventilator 80 08/30/19 20:00 108 22 132/78 (96) 93 08/30/19 19:30 108 22 146/74 (98) 92 08/30/19 19:25 107 22 95 Mechanical Ventilator 80 103 26 80 08/30/19 19:00 107 22 130/77 (94) 93 08/30/19 19:00 20 Mechanical Ventilator 08/30/19 18:30 107 24 135/77 (96) 93 08/30/19 18:00 108 24 142/75 (97) 93 08/30/19 18:00 25 Mechanical Ventilator 08/30/19 17:30 107 24 146/77 (100) 94 08/30/19 17:05 107 25 80 08/30/19 17:00 25 Mechanical Ventilator 08/30/19 17:00 99.4 108 24 148/76 (100) 94 08/30/19 16:00 Mechanical Ventilator 08/30/19 16:00 25 Mechanical Ventilator 08/30/19 16:00 107 08/30/19 16:00 80 08/30/19 16:00 107 25 152/69 (96) 94 08/30/19 15:30 107 27 141/82 (101) 94 08/30/19 15:00 107 29 155/74 (101) 94 08/30/19 15:00 25 Mechanical Ventilator Status: sedated - int Condition: critical HEENT: atraumatic, normocephalic, other - ETT NGT Lungs: other - on vent Heart: HR/BP stable Micro: Microbiology Date/Time Source Procedure Growth Status 08/30/19 04:30 Urine,Catheterized Urine Culture - Preliminary NO GROWTH AFTER 24 HOURS Resulted Blood Sugars: BS controlled Critical Care - Subjective ROS Limited/Unobtainable: Yes ICU Day: 10 Intubation Day: 11 Interval Events: Tm 101.2 clarissa SIMV no change o/w Condition: critical IV Access: central EKG Rhythm: Sinus Rhythm FI02: 80 Vent Support Breath Rate: 20 Vent Support Mode: IMV/SIMV Vent Tidal Volume: 400 Sputum Amount: Small PEEP: 7.0 PIP: 30 Secretions: small Fluids: SLIV Drips: Fent Tube Feeding Amount: 50 I&O: Intake and Output 08/30/19 08/31/19 19:00 07:00 Intake Total 1486 ml 1330 ml Output Total 570 ml 740 ml Balance 916 ml 590 ml Free Water 100 ml IV Total 786 ml 650 ml Tube Feeding 600 ml 600 ml Other 80 ml Output Urine Total 570 ml 740 ml # Bowel Movements 3 1 Subjective: REYMUNDO CXR: No change in b inf ET-Tube: 7.5 ET Position: 25 Labs: Laboratory Tests Test 08/31/19 04:00 White Blood Count 12.1 K/UL (4.8-10.8) H Red Blood Count 3.63 M/UL (4.70-6.10) L Hemoglobin 11.3 G/DL (14.2-18.0) L Hematocrit 34.1 % (42.0-52.0) L Mean Corpuscular Volume 94 FL (80-99) Mean Corpuscular Hemoglobin 31.2 PG (27.0-31.0) H Mean Corpuscular Hemoglobin Concent 33.3 G/DL (32.0-36.0) Red Cell Distribution Width 13.0 % (11.6-14.8) Platelet Count 349 K/UL (150-450) Mean Platelet Volume 7.1 FL (6.5-10.1) Neutrophils (%) (Auto) % (45.0-75.0) Lymphocytes (%) (Auto) % (20.0-45.0) Monocytes (%) (Auto) % (1.0-10.0) Eosinophils (%) (Auto) % (0.0-3.0) Basophils (%) (Auto) % (0.0-2.0) Differential Total Cells Counted 100 Neutrophils % (Manual) 87 % (45-75) H Lymphocytes % (Manual) 6 % (20-45) L Monocytes % (Manual) 6 % (1-10) Eosinophils % (Manual) 0 % (0-3) Basophils % (Manual) 0 % (0-2) Myelocytes % 1 % (0-0) H Band Neutrophils 0 % (0-8) Platelet Estimate Adequate Platelet Morphology Normal Red Blood Cell Morphology Normal Sodium Level 144 MMOL/L (136-145) Potassium Level 4.9 MMOL/L (3.5-5.1) Chloride Level 107 MMOL/L (98-107) Carbon Dioxide Level 32 MMOL/L (21-32) Anion Gap 5 mmol/L (5-15) Blood Urea Nitrogen 23 mg/dL (7-18) H Creatinine 0.8 MG/DL (0.55-1.30) Estimat Glomerular Filtration Rate > 60 mL/min (>60) Glucose Level 190 MG/DL (74-106) H Calcium Level 8.6 MG/DL (8.5-10.1) David Nash MD Aug 31, 2019 14:47
--- NOTE | 2019-08-31 14:50 | NUR ---
NURSE NOTES: Dr Nash rounded on the patient. Updated him on patient current condition. Received order to prone patient. 12 hours on and 12 hours off. Order read back, verified, and placed at this time.
--- NOTE | 2019-08-31 15:07 | Surgery Progress Note ---
Surgery Progress Note Subjective Additional Comments ill appearing josep cute events Objective Last 24 Hour Vital Signs Date Time Temp Pulse Resp B/P (MAP) Pulse Ox O2 Delivery O2 Flow Rate FiO2 08/31/19 14:44 104 23 80 08/31/19 13:00 27 Mechanical Ventilator 80 08/31/19 13:00 106 25 137/87 (104) 92 08/31/19 12:45 106 23 91 Mechanical Ventilator 80 109 28 80 08/31/19 12:30 107 24 147/74 (98) 92 08/31/19 12:00 101.2 108 23 154/76 (102) 91 08/31/19 12:00 28 Mechanical Ventilator 80 08/31/19 12:00 80 08/31/19 12:00 106 08/31/19 11:30 107 26 149/85 (106) 91 08/31/19 11:14 25 Mechanical Ventilator 80 08/31/19 11:12 105 25 80 08/31/19 11:00 105 26 160/81 (107) 91 08/31/19 11:00 26 Mechanical Ventilator 80 08/31/19 10:30 107 25 156/88 (110) 91 08/31/19 10:00 35 Mechanical Ventilator 80 08/31/19 10:00 106 24 135/88 (104) 92 08/31/19 09:30 107 24 159/80 (106) 92 08/31/19 09:11 106 23 80 08/31/19 09:07 106 140/72 08/31/19 09:00 104 22 140/72 (94) 93 08/31/19 09:00 25 Mechanical Ventilator 80 08/31/19 08:30 102 22 141/87 (105) 93 08/31/19 08:00 99.1 103 22 138/70 (92) 93 08/31/19 08:00 102 08/31/19 08:00 25 Mechanical Ventilator 80 08/31/19 08:00 Mechanical Ventilator 08/31/19 08:00 80 08/31/19 07:38 101 23 95 Mechanical Ventilator 80 103 23 80 08/31/19 07:00 21 Mechanical Ventilator 80 08/31/19 07:00 101 21 142/76 (98) 94 08/31/19 06:30 103 21 148/83 (104) 94 08/31/19 06:30 103 21 08/31/19 06:00 103 20 138/79 (98) 94 08/31/19 06:00 20 Mechanical Ventilator 80 08/31/19 05:30 105 21 144/73 (96) 94 08/31/19 05:00 105 22 135/80 (98) 94 08/31/19 05:00 22 Mechanical Ventilator 80 08/31/19 04:30 106 22 133/80 (97) 94 08/31/19 04:00 Mechanical Ventilator 08/31/19 04:00 24 Mechanical Ventilator 80 08/31/19 04:00 99.6 110 24 149/74 (99) 93 08/31/19 04:00 80 08/31/19 03:30 108 23 138/72 (94) 93 08/31/19 03:29 108 08/31/19 03:25 108 23 80 08/31/19 03:00 110 20 140/68 (92) 93 08/31/19 03:00 20 Mechanical Ventilator 80 08/31/19 02:30 112 21 139/66 (90) 93 08/31/19 02:00 111 21 129/72 (91) 94 08/31/19 02:00 21 Mechanical Ventilator 80 08/31/19 01:30 111 21 143/74 (97) 94 08/31/19 01:00 22 Mechanical Ventilator 80 08/31/19 01:00 111 22 150/79 (102) 94 08/31/19 00:33 110 24 94 Mechanical Ventilator 80 111 26 80 08/31/19 00:30 109 21 145/68 (93) 93 08/31/19 00:00 99.0 109 22 153/82 (105) 92 08/31/19 00:00 80 08/31/19 00:00 22 80 08/31/19 00:00 Mechanical Ventilator 08/30/19 23:30 108 23 154/82 (106) 92 08/30/19 23:00 108 23 152/82 (105) 92 08/30/19 23:00 21 Mechanical Ventilator 80 08/30/19 22:57 106 24 80 08/30/19 22:30 105 23 151/77 (101) 93 08/30/19 22:00 26 Mechanical Ventilator 80 08/30/19 22:00 106 26 143/70 (94) 92 08/30/19 21:30 106 29 143/69 (93) 93 08/30/19 21:20 108 148/74 08/30/19 21:00 24 Mechanical Ventilator 80 08/30/19 21:00 98.4 108 24 146/74 (98) 93 08/30/19 20:30 108 22 145/72 (96) 93 08/30/19 20:10 108 08/30/19 20:00 80 08/30/19 20:00 Mechanical Ventilator 08/30/19 20:00 22 Mechanical Ventilator 80 08/30/19 20:00 108 22 132/78 (96) 93 08/30/19 19:30 108 22 146/74 (98) 92 08/30/19 19:25 107 22 95 Mechanical Ventilator 80 103 26 80 08/30/19 19:00 107 22 130/77 (94) 93 08/30/19 19:00 20 Mechanical Ventilator 08/30/19 18:30 107 24 135/77 (96) 93 08/30/19 18:00 108 24 142/75 (97) 93 08/30/19 18:00 25 Mechanical Ventilator 08/30/19 17:30 107 24 146/77 (100) 94 08/30/19 17:05 107 25 80 08/30/19 17:00 25 Mechanical Ventilator 08/30/19 17:00 99.4 108 24 148/76 (100) 94 08/30/19 16:00 Mechanical Ventilator 08/30/19 16:00 25 Mechanical Ventilator 08/30/19 16:00 107 08/30/19 16:00 80 08/30/19 16:00 107 25 152/69 (96) 94 08/30/19 15:30 107 27 141/82 (101) 94 I&O Intake and Output 08/30/19 08/31/19 19:00 07:00 Intake Total 1486 ml 1330 ml Output Total 570 ml 740 ml Balance 916 ml 590 ml Free Water 100 ml IV Total 786 ml 650 ml Tube Feeding 600 ml 600 ml Other 80 ml Output Urine Total 570 ml 740 ml # Bowel Movements 3 1 Dressing: other Wound: other Drains: other Cardiovascular: RSR Respiratory: decreased breath sounds Abdomen: soft, non-tender, present bowel sounds Extremities: no cyanosis Laboratory Tests Test 08/31/19 04:00 White Blood Count 12.1 K/UL (4.8-10.8) H Red Blood Count 3.63 M/UL (4.70-6.10) L Hemoglobin 11.3 G/DL (14.2-18.0) L Hematocrit 34.1 % (42.0-52.0) L Mean Corpuscular Volume 94 FL (80-99) Mean Corpuscular Hemoglobin 31.2 PG (27.0-31.0) H Mean Corpuscular Hemoglobin Concent 33.3 G/DL (32.0-36.0) Red Cell Distribution Width 13.0 % (11.6-14.8) Platelet Count 349 K/UL (150-450) Mean Platelet Volume 7.1 FL (6.5-10.1) Neutrophils (%) (Auto) % (45.0-75.0) Lymphocytes (%) (Auto) % (20.0-45.0) Monocytes (%) (Auto) % (1.0-10.0) Eosinophils (%) (Auto) % (0.0-3.0) Basophils (%) (Auto) % (0.0-2.0) Differential Total Cells Counted 100 Neutrophils % (Manual) 87 % (45-75) H Lymphocytes % (Manual) 6 % (20-45) L Monocytes % (Manual) 6 % (1-10) Eosinophils % (Manual) 0 % (0-3) Basophils % (Manual) 0 % (0-2) Myelocytes % 1 % (0-0) H Band Neutrophils 0 % (0-8) Platelet Estimate Adequate Platelet Morphology Normal Red Blood Cell Morphology Normal Sodium Level 144 MMOL/L (136-145) Potassium Level 4.9 MMOL/L (3.5-5.1) Chloride Level 107 MMOL/L (98-107) Carbon Dioxide Level 32 MMOL/L (21-32) Anion Gap 5 mmol/L (5-15) Blood Urea Nitrogen 23 mg/dL (7-18) H Creatinine 0.8 MG/DL (0.55-1.30) Estimat Glomerular Filtration Rate > 60 mL/min (>60) Glucose Level 190 MG/DL (74-106) H Calcium Level 8.6 MG/DL (8.5-10.1) Ferritin Pending C-Reactive Protein, Quantitative Pending Plan Problems: (1) Decubitus skin ulcer Assessment & Plan: Patient presented on admission with Sacral DTPI. Base of wound is purple with maroon borders. Unstageable pressure injury Plantar L heel . Base of wound is necrotic with marginal erythema along borders. Non-blanching erythema R heel. Sacral DTPI now evolving since admission. Several opening within base of wound. No exudate noted. Open areas are moist and jason. Surrounding base of wound is purple with erythema along borders. Unstageable Pressure injury Plantar L heel. Base of wound is necrotic. Edges adherent to base of wound. Tx.Plan: Cleanse Sacral wound with Saline. Apply Therahoney. Apply Moisture Barrier Paste periwound. Cover with Optifoam drsg. Change every 3 days and prn. Apply Betadine to Plantar L heel. Cover with Optifoam drsg. Change every 3 days and prn. Apply Cavilon Skin Barrier R heel. Cover with Optifoam drsg. Change every 7 days and prn. Reposition at least every 2hours or as tolerated Off-load heels with pillow. Nutritional optimization will follow with recs air mattress once off isolation DAILY ESTIMATED NEEDS: Needs based on Critical care, Wounds/ 53kg abw 22-28 kcals/kg 0945-0314 total kcals 1.25-2 g protein/kg 66-106 g total protein 25-30 mL/kg 8124-8882 total fluid mLs NUTRITION DIAGNOSIS: * Swallowing difficulty R/T dysphagia as evidenced by PEG dep, s/p intubation, on GT feeding. * Increased kcal/prot needs R/T wound healing as evidenced by pt admitted w/ evolving DTPI sacral wound and unstageable lt heel wound. CURRENT TF:Glucerna 1.2 @50ml/hr x22 hrs ENTERAL NUTRITION RECOMMENDATIONS: Glucerna 1.2 @ 50ml/hr x 22 hrs (hold 1 hr before and after Dilantin QD) to provide 1100ml, 1320kcal, 66g prot, 886ml free water * Maintain Glucerna 1.2 for carb control, BGs elevated. * Hold 1 hr before and after Dilantin med * HOB over 30 degrees/ without IVF, H20 flush of 150ml q 6 hrs FOR 24 HRS TF RUN WITHOUT DILANTIN (Dilantin currently held) : okay to keep the same TF rate of Glucerna 1.2 @ 50ml/hr x 24 hrs to provide 1200ml, 1440kcal, 72g prot 966ml free water -> will still meet 100% est kcal/prot needs ADDITIONAL RECOMMENDATIONS: * Per SNF record, ht is 60", wt is 149lbs (08/14/19) Rec calibrated bedscale wt * Rec NISS w/ TF: BGs elevated, now on Solumedrol * Wound healing: add Vit C 500mg QD + Giancarlo 1pkt BID via PEG * Monitor lytes, replete as needed . (2) Multi-infarct dementia (3) Uncontrolled seizures (4) History of CVA (cerebrovascular accident) (5) Acute encephalopathy (6) Aspiration pneumonia Assessment & Plan: Interval worsening of aeration with increasing interstitial and patchy bilateral airspace disease. Findings may be on the basis of worsening CHF/pulmonary edema although multifocal pneumonia must also be considered. Endotracheal tube injection is a central line remain in place. 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 (7) Respiratory failure (8) Suspected 2019 novel coronavirus infection Assessment & Plan: testing (9) Abdominal distension Assessment & Plan: pending KUB +BM ulikely obstruction will monitor Sundeep Benavidez Aug 31, 2019 15:07
--- NOTE | 2019-08-31 16:00 | NUR ---
NURSE NOTES: Patient sedated with RASS score -2. Patient on fentanyl at 200mcg/hr. Patient remains orally intubated with ET tube 7.5 with 25cm at the lip line. Ventilator setting SIMV/IMV 20, pressure support 10, tidal volume 400, FiO2 80%, and PEEP 7. Patient SpO2 91-92%. RR 24. Sinus tachycardia on the chef passenger vessel with 1st degree heart block. Right internal jugular central line patent, asymptomatic, and running fentanyl. All wound dressing dry and intact. Swartz remains patent and draining dark jaclyn urine at this time. Patient bed in low position with bed alarm on and call light in reach at this time. oral care and reposition done. Will continue to monitor.
--- NOTE | 2019-08-31 16:32 | Cardiac Electrophysiology PN ---
Assessment/Plan Assessment/Plan 1. Atrial flutter with rapid ventricular response. In SR with first degree AVB On Eliquis 2.5 mg bid, metoprolol 50 mg bid. 2. Accelerated hypertension with blood pressure of 200. Continue metoprolol 50 mg b.i.d. and p.r.n. IV hydralazine. 3. 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 4. Respiratory failure due to COVID-19 pneumonia. On the Vent on 80% fio2 Completed hydroxychloroquine. EKG QT 440 . 5. Sepsis on Solu-Medrol and Meropenem 6. History of CVA. 7. Multi-infarct dementia. 8. History of seizures. 9. Abdominal distension DW RN Subjective Subjective Intubated in ICU on the vent 80% Fio2 in isolation as Covid is positive. In SR off pressors. Objective Last 24 Hour Vital Signs Date Time Temp Pulse Resp B/P (MAP) Pulse Ox O2 Delivery O2 Flow Rate FiO2 08/31/19 14:44 104 23 80 08/31/19 13:00 27 Mechanical Ventilator 80 08/31/19 13:00 106 25 137/87 (104) 92 08/31/19 12:45 106 23 91 Mechanical Ventilator 80 109 28 80 08/31/19 12:30 107 24 147/74 (98) 92 08/31/19 12:00 101.2 108 23 154/76 (102) 91 08/31/19 12:00 28 Mechanical Ventilator 80 08/31/19 12:00 80 08/31/19 12:00 106 08/31/19 11:30 107 26 149/85 (106) 91 08/31/19 11:14 25 Mechanical Ventilator 80 08/31/19 11:12 105 25 80 08/31/19 11:00 105 26 160/81 (107) 91 08/31/19 11:00 26 Mechanical Ventilator 80 08/31/19 10:30 107 25 156/88 (110) 91 08/31/19 10:00 35 Mechanical Ventilator 80 08/31/19 10:00 106 24 135/88 (104) 92 08/31/19 09:30 107 24 159/80 (106) 92 08/31/19 09:11 106 23 80 08/31/19 09:07 106 140/72 08/31/19 09:00 104 22 140/72 (94) 93 08/31/19 09:00 25 Mechanical Ventilator 80 08/31/19 08:30 102 22 141/87 (105) 93 08/31/19 08:00 99.1 103 22 138/70 (92) 93 08/31/19 08:00 102 08/31/19 08:00 25 Mechanical Ventilator 80 08/31/19 08:00 Mechanical Ventilator 08/31/19 08:00 80 08/31/19 07:38 101 23 95 Mechanical Ventilator 80 103 23 80 08/31/19 07:00 21 Mechanical Ventilator 80 08/31/19 07:00 101 21 142/76 (98) 94 08/31/19 06:30 103 21 148/83 (104) 94 08/31/19 06:30 103 21 08/31/19 06:00 103 20 138/79 (98) 94 08/31/19 06:00 20 Mechanical Ventilator 80 08/31/19 05:30 105 21 144/73 (96) 94 08/31/19 05:00 105 22 135/80 (98) 94 08/31/19 05:00 22 Mechanical Ventilator 80 08/31/19 04:30 106 22 133/80 (97) 94 08/31/19 04:00 Mechanical Ventilator 08/31/19 04:00 24 Mechanical Ventilator 80 08/31/19 04:00 99.6 110 24 149/74 (99) 93 08/31/19 04:00 80 08/31/19 03:30 108 23 138/72 (94) 93 08/31/19 03:29 108 08/31/19 03:25 108 23 80 08/31/19 03:00 110 20 140/68 (92) 93 08/31/19 03:00 20 Mechanical Ventilator 80 08/31/19 02:30 112 21 139/66 (90) 93 08/31/19 02:00 111 21 129/72 (91) 94 08/31/19 02:00 21 Mechanical Ventilator 80 08/31/19 01:30 111 21 143/74 (97) 94 08/31/19 01:00 22 Mechanical Ventilator 80 08/31/19 01:00 111 22 150/79 (102) 94 08/31/19 00:33 110 24 94 Mechanical Ventilator 80 111 26 80 08/31/19 00:30 109 21 145/68 (93) 93 08/31/19 00:00 99.0 109 22 153/82 (105) 92 08/31/19 00:00 80 08/31/19 00:00 22 80 08/31/19 00:00 Mechanical Ventilator 08/30/19 23:30 108 23 154/82 (106) 92 08/30/19 23:00 108 23 152/82 (105) 92 08/30/19 23:00 21 Mechanical Ventilator 80 08/30/19 22:57 106 24 80 08/30/19 22:30 105 23 151/77 (101) 93 08/30/19 22:00 26 Mechanical Ventilator 80 08/30/19 22:00 106 26 143/70 (94) 92 08/30/19 21:30 106 29 143/69 (93) 93 08/30/19 21:20 108 148/74 08/30/19 21:00 24 Mechanical Ventilator 80 08/30/19 21:00 98.4 108 24 146/74 (98) 93 08/30/19 20:30 108 22 145/72 (96) 93 08/30/19 20:10 108 08/30/19 20:00 80 08/30/19 20:00 Mechanical Ventilator 08/30/19 20:00 22 Mechanical Ventilator 80 08/30/19 20:00 108 22 132/78 (96) 93 08/30/19 19:30 108 22 146/74 (98) 92 08/30/19 19:25 107 22 95 Mechanical Ventilator 80 103 26 80 08/30/19 19:00 107 22 130/77 (94) 93 08/30/19 19:00 20 Mechanical Ventilator 08/30/19 18:30 107 24 135/77 (96) 93 08/30/19 18:00 108 24 142/75 (97) 93 08/30/19 18:00 25 Mechanical Ventilator 08/30/19 17:30 107 24 146/77 (100) 94 08/30/19 17:05 107 25 80 08/30/19 17:00 25 Mechanical Ventilator 08/30/19 17:00 99.4 108 24 148/76 (100) 94 Intake and Output 08/30/19 08/31/19 19:00 07:00 Intake Total 1486 ml 1330 ml Output Total 570 ml 740 ml Balance 916 ml 590 ml Free Water 100 ml IV Total 786 ml 650 ml Tube Feeding 600 ml 600 ml Other 80 ml Output Urine Total 570 ml 740 ml # Bowel Movements 3 1 Laboratory Tests Test 08/31/19 04:00 White Blood Count 12.1 K/UL (4.8-10.8) H Red Blood Count 3.63 M/UL (4.70-6.10) L Hemoglobin 11.3 G/DL (14.2-18.0) L Hematocrit 34.1 % (42.0-52.0) L Mean Corpuscular Volume 94 FL (80-99) Mean Corpuscular Hemoglobin 31.2 PG (27.0-31.0) H Mean Corpuscular Hemoglobin Concent 33.3 G/DL (32.0-36.0) Red Cell Distribution Width 13.0 % (11.6-14.8) Platelet Count 349 K/UL (150-450) Mean Platelet Volume 7.1 FL (6.5-10.1) Neutrophils (%) (Auto) % (45.0-75.0) Lymphocytes (%) (Auto) % (20.0-45.0) Monocytes (%) (Auto) % (1.0-10.0) Eosinophils (%) (Auto) % (0.0-3.0) Basophils (%) (Auto) % (0.0-2.0) Differential Total Cells Counted 100 Neutrophils % (Manual) 87 % (45-75) H Lymphocytes % (Manual) 6 % (20-45) L Monocytes % (Manual) 6 % (1-10) Eosinophils % (Manual) 0 % (0-3) Basophils % (Manual) 0 % (0-2) Myelocytes % 1 % (0-0) H Band Neutrophils 0 % (0-8) Platelet Estimate Adequate Platelet Morphology Normal Red Blood Cell Morphology Normal Sodium Level 144 MMOL/L (136-145) Potassium Level 4.9 MMOL/L (3.5-5.1) Chloride Level 107 MMOL/L (98-107) Carbon Dioxide Level 32 MMOL/L (21-32) Anion Gap 5 mmol/L (5-15) Blood Urea Nitrogen 23 mg/dL (7-18) H Creatinine 0.8 MG/DL (0.55-1.30) Estimat Glomerular Filtration Rate > 60 mL/min (>60) Glucose Level 190 MG/DL (74-106) H Calcium Level 8.6 MG/DL (8.5-10.1) Ferritin 566 NG/ML (8-388) H C-Reactive Protein, Quantitative 31.9 mg/dL (0.00-0.90) H Microbiology Date/Time Source Procedure Growth Status 08/30/19 04:30 Urine,Catheterized Urine Culture - Preliminary NO GROWTH AFTER 24 HOURS Resulted Objective HEAD AND NECK: No JVD. Orally intubated. LUNGS: Coarse rhonchi. CARDIOVASCULAR: Irregular S1 and S2 with no gallop or murmur. ABDOMEN: Soft. EXTREMITIES: 1 plus pitting edema. Paul Robles MD Aug 31, 2019 16:32
--- NOTE | 2019-08-31 17:15 | NUR ---
NURSE NOTES: Patient placed in prone position. Patient head turned to the right. Tube feeding held at this time. Patient showing sinus rhythm on the front desk monitor. Patient SPO2 is 91% with 100% FiO2. Will continue to monitor.
--- NOTE | 2019-08-31 18:13 | Infectious Diseases Prog Note ---
Assessment/Plan Assessment/Plan ASSESSMENT AND PLAN: 1. covid-19 virus infection, pna, sepsis, fevers, leukocytosis, vent, respiratory failure MRSA pneumonia rash - ? vancomycin, ? zosyn - abx held - rash improved ? bowel obstruction, ? ileus fungemia risk - zyvox, meropenem and diflucan - f/u on labs and chest x-ray, bc/uc - negative, sc - mrsa - supportive care, ivf, vent - d/w RN - remains critical - surgery f//u - icu supportive care 2. Respiratory failure, on vent. 3. History of hyperlipidemia. 4. History of hypertension. 5. Atherosclerotic heart disease. 6. CAD. 7. COPD. 8. Dementia. 9. Nonverbal at baseline. 10. History of seizures. 11. No known drug allergies. 12. Social history negative. 13. Family history noncontributory. 14. MAR was noted. 15. Case discussed with RN. 16. Continue treatment per primary consultants. Subjective Constitutional: Reports: fever, other - on vent and pressors HEENT: Reports: congestion Cardiovascular: Reports: other - + pressors Gastrointestinal/Abdominal: Denies: nausea, vomiting, diarrhea Genitourinary: Reports: other - + verduzco Neurologic: Reports: weakness, other - sedated, on vent Psychiatric: Reports: other - NA Skin: Denies: rash Hematologic: Denies: bleeding Musculoskeletal: Reports: other - NA Allergies: Coded Allergies: No Known Allergies (Unverified , 02/29/16) Objective Vital Signs Last 24 Hour Vital Signs Date Time Temp Pulse Resp B/P (MAP) Pulse Ox O2 Delivery O2 Flow Rate FiO2 08/31/19 17:00 28 Mechanical Ventilator 80 08/31/19 16:30 98 24 137/58 (84) 96 08/31/19 16:00 100.9 99 24 140/66 (90) 95 08/31/19 16:00 98 08/31/19 16:00 28 Mechanical Ventilator 80 08/31/19 15:30 103 24 140/66 (90) 94 08/31/19 15:00 103 24 130/80 (97) 93 08/31/19 15:00 24 Mechanical Ventilator 80 08/31/19 14:44 104 23 80 08/31/19 14:30 104 24 146/61 (89) 93 08/31/19 14:00 28 Mechanical Ventilator 80 08/31/19 14:00 104 25 123/66 (85) 93 08/31/19 13:30 105 24 131/77 (95) 94 08/31/19 13:00 27 Mechanical Ventilator 80 08/31/19 13:00 106 25 137/87 (104) 92 08/31/19 12:58 100.5 08/31/19 12:45 106 23 91 Mechanical Ventilator 80 109 28 80 08/31/19 12:30 107 24 147/74 (98) 92 08/31/19 12:00 101.2 108 23 154/76 (102) 91 08/31/19 12:00 28 Mechanical Ventilator 80 08/31/19 12:00 80 08/31/19 12:00 106 08/31/19 11:30 107 26 149/85 (106) 91 08/31/19 11:14 25 Mechanical Ventilator 80 08/31/19 11:12 105 25 80 08/31/19 11:00 105 26 160/81 (107) 91 08/31/19 11:00 26 Mechanical Ventilator 80 08/31/19 10:30 107 25 156/88 (110) 91 08/31/19 10:00 35 Mechanical Ventilator 80 08/31/19 10:00 106 24 135/88 (104) 92 08/31/19 09:30 107 24 159/80 (106) 92 08/31/19 09:11 106 23 80 08/31/19 09:07 106 140/72 08/31/19 09:00 104 22 140/72 (94) 93 08/31/19 09:00 25 Mechanical Ventilator 80 08/31/19 08:30 102 22 141/87 (105) 93 08/31/19 08:00 99.1 103 22 138/70 (92) 93 08/31/19 08:00 102 08/31/19 08:00 25 Mechanical Ventilator 80 08/31/19 08:00 Mechanical Ventilator 08/31/19 08:00 80 08/31/19 07:38 101 23 95 Mechanical Ventilator 80 103 23 80 08/31/19 07:00 21 Mechanical Ventilator 80 08/31/19 07:00 101 21 142/76 (98) 94 08/31/19 06:30 103 21 148/83 (104) 94 08/31/19 06:30 103 21 08/31/19 06:00 103 20 138/79 (98) 94 08/31/19 06:00 20 Mechanical Ventilator 80 08/31/19 05:30 105 21 144/73 (96) 94 08/31/19 05:00 105 22 135/80 (98) 94 08/31/19 05:00 22 Mechanical Ventilator 80 08/31/19 04:30 106 22 133/80 (97) 94 08/31/19 04:00 Mechanical Ventilator 08/31/19 04:00 24 Mechanical Ventilator 80 08/31/19 04:00 99.6 110 24 149/74 (99) 93 08/31/19 04:00 80 08/31/19 03:30 108 23 138/72 (94) 93 08/31/19 03:29 108 08/31/19 03:25 108 23 80 08/31/19 03:00 110 20 140/68 (92) 93 08/31/19 03:00 20 Mechanical Ventilator 80 08/31/19 02:30 112 21 139/66 (90) 93 08/31/19 02:00 111 21 129/72 (91) 94 08/31/19 02:00 21 Mechanical Ventilator 80 08/31/19 01:30 111 21 143/74 (97) 94 08/31/19 01:00 22 Mechanical Ventilator 80 08/31/19 01:00 111 22 150/79 (102) 94 08/31/19 00:33 110 24 94 Mechanical Ventilator 80 111 26 80 08/31/19 00:30 109 21 145/68 (93) 93 08/31/19 00:00 99.0 109 22 153/82 (105) 92 08/31/19 00:00 80 08/31/19 00:00 22 80 08/31/19 00:00 Mechanical Ventilator 08/30/19 23:30 108 23 154/82 (106) 92 08/30/19 23:00 108 23 152/82 (105) 92 08/30/19 23:00 21 Mechanical Ventilator 80 08/30/19 22:57 106 24 80 08/30/19 22:30 105 23 151/77 (101) 93 08/30/19 22:00 26 Mechanical Ventilator 80 08/30/19 22:00 106 26 143/70 (94) 92 08/30/19 21:30 106 29 143/69 (93) 93 08/30/19 21:20 108 148/74 08/30/19 21:00 24 Mechanical Ventilator 80 08/30/19 21:00 98.4 108 24 146/74 (98) 93 08/30/19 20:30 108 22 145/72 (96) 93 08/30/19 20:10 108 08/30/19 20:00 80 08/30/19 20:00 Mechanical Ventilator 08/30/19 20:00 22 Mechanical Ventilator 80 08/30/19 20:00 108 22 132/78 (96) 93 08/30/19 19:30 108 22 146/74 (98) 92 08/30/19 19:25 107 22 95 Mechanical Ventilator 80 103 26 80 08/30/19 19:00 107 22 130/77 (94) 93 08/30/19 19:00 20 Mechanical Ventilator 08/30/19 18:30 107 24 135/77 (96) 93 Height (Feet): 5 Height (Inches): 8.00 Weight (Pounds): 165 General Appearance: other - on vent HEENT: normocephalic, atraumatic, anicteric, mucous membranes moist, no JVD Respiratory/Chest: crackles/rales, rhonchi - bilaterally Cardiovascular: normal rate, regular rhythm, no gallop/murmur, no JVD Abdomen: normal bowel sounds, soft, non tender, no organomegaly Genitourinary: other - + verduzco Extremities: no cyanosis Skin: no rash Neurologic/Psychiatric: other - weak, on vent Lymphatic: no neck adenopathy Musculoskeletal: no effusion Objective Procedure: XRAY Chest 1v - 08/23/19 - Indication: Chest pain Technique: One view of the chest Comparison: 1 1/2 hours earlier Findings: Interim placement of a right jugular central venous catheter, tip which projects at the level of the high right atrium. No gross pneumothorax. Interim endotracheal intubation, endotracheal tube tip projecting approximately 6 cm above the darline. Right upper lobe infiltrate is unchanged. Left retrocardiac opacification and likely left pleural effusion are unchanged. Impression: Endotracheal intubation Satisfactory placement right jugular central venous catheter, no radiographically evident complication Other stable findings as described 08/25/19 - Procedure: XRAY Chest 1v EXAM: XR Chest, 1 View CLINICAL HISTORY: INTRA-OP TECHNIQUE: Frontal view of the chest. COMPARISON: No relevant prior studies available. FINDINGS: Redemonstrated endotracheal tube, appropriately positioned, the tip projecting above the darline. Right internal jugular central venous catheter tip is again in the upper right atrium. There is no pneumothorax. Bilateral pulmonary consolidation is again noted. This is most confluent in the left midlung and right upper lobe, similar appearance to prior. 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 Chronic rib deformities as well as skeletal degenerative changes. IMPRESSION: No significant interval change in extensive bilateral airspace infiltrates. Chest x-ray - 08/26/19 - Procedure: XRAY Chest 1v Indication: Shortness of breath Technique: One view of the chest Comparison: none Findings: Bilateral diffuse infiltrates appears slightly more extensive than on the previous study. Stable satisfactory positions of endotracheal tube and right jugular central venous catheter. Gastrostomy is demonstrated. Impression: Over one day, interim slight worsening of bilateral infiltrates Other stable findings as described KUB - 08/29/19 - Findings: There are some mildly dilated small bowel loops in the lower midabdomen. A more dilated gas-filled segment of bowel is seen to the right of midline. Uncertain as to whether this represents a very dilated small bowel loop or an upper limits of normal caliber segment of sigmoid colon. There is a gastrostomy noted. There is a Verduzco catheter noted. Impression: Mildly dilated small bowel loops in the lower midabdomen, nonspecific, could indicate ileus versus early obstructive changes Focal segment of either very dilated small bowel or mildly prominent colon in the right upper pelvis, favor the latter Gastrostomy and Verduzco catheter incidentally noted Chest x-ray 08/28/19 - Findings: Heart size is stable. Atherosclerotic calcifications again noted in the aorta. Endotracheal tube stable and satisfactory position. Right transjugular central line has its tip in the region of the high right atrium. A gastrostomy tube is noted. There is interval worsening of aeration with increasing interstitial and patchy bilateral airspace disease. Small layering left pleural effusion not excluded. No evidence of pneumothorax. Again is evidence of prior cardiac surgery with median sternotomy and prosthetic cardiac valve. Osseous structures are stable. IMPRESSION: Interval worsening of aeration with increasing interstitial and patchy bilateral airspace disease. Findings may be on the basis of worsening CHF/pulmonary edema although multifocal pneumonia must also be considered. Endotracheal tube injection is a central line remain in place. 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 Chest -x-ray - 08/31/19 - IMPRESSION: 1. No significant change in bilateral multilobar peripheral opacities and consolidation. 2. Possible small layering left pleural effusion. 3. Pulmonary vascular congestion. Microbiology Date/Time Source Procedure Growth Status 08/27/19 11:45 Blood Blood Culture - Preliminary NO GROWTH AFTER 72 HOURS Resulted 08/27/19 14:00 Sputum Gram Stain - Final Complete 08/27/19 14:00 Sputum Culture - Final Staphylococcus Aureus - Mrsa Complete 08/30/19 04:30 Urine,Catheterized Urine Culture - Preliminary NO GROWTH AFTER 24 HOURS Resulted 08/19/19 18:30 Rectum - Final NO CARBAPENEM-RESISTANT ENTEROBACTERI... Complete Microbiology Date/Time Source Procedure Growth Status 08/30/19 04:30 Urine,Catheterized Urine Culture - Preliminary NO GROWTH AFTER 24 HOURS Resulted Laboratory Tests Test 08/31/19 04:00 White Blood Count 12.1 K/UL (4.8-10.8) H Red Blood Count 3.63 M/UL (4.70-6.10) L Hemoglobin 11.3 G/DL (14.2-18.0) L Hematocrit 34.1 % (42.0-52.0) L Mean Corpuscular Volume 94 FL (80-99) Mean Corpuscular Hemoglobin 31.2 PG (27.0-31.0) H Mean Corpuscular Hemoglobin Concent 33.3 G/DL (32.0-36.0) Red Cell Distribution Width 13.0 % (11.6-14.8) Platelet Count 349 K/UL (150-450) Mean Platelet Volume 7.1 FL (6.5-10.1) Neutrophils (%) (Auto) % (45.0-75.0) Lymphocytes (%) (Auto) % (20.0-45.0) Monocytes (%) (Auto) % (1.0-10.0) Eosinophils (%) (Auto) % (0.0-3.0) Basophils (%) (Auto) % (0.0-2.0) Differential Total Cells Counted 100 Neutrophils % (Manual) 87 % (45-75) H Lymphocytes % (Manual) 6 % (20-45) L Monocytes % (Manual) 6 % (1-10) Eosinophils % (Manual) 0 % (0-3) Basophils % (Manual) 0 % (0-2) Myelocytes % 1 % (0-0) H Band Neutrophils 0 % (0-8) Platelet Estimate Adequate Platelet Morphology Normal Red Blood Cell Morphology Normal Sodium Level 144 MMOL/L (136-145) Potassium Level 4.9 MMOL/L (3.5-5.1) Chloride Level 107 MMOL/L (98-107) Carbon Dioxide Level 32 MMOL/L (21-32) Anion Gap 5 mmol/L (5-15) Blood Urea Nitrogen 23 mg/dL (7-18) H Creatinine 0.8 MG/DL (0.55-1.30) Estimat Glomerular Filtration Rate > 60 mL/min (>60) Glucose Level 190 MG/DL (74-106) H Calcium Level 8.6 MG/DL (8.5-10.1) Ferritin 566 NG/ML (8-388) H C-Reactive Protein, Quantitative 31.9 mg/dL (0.00-0.90) H Current Medications Medications (Trade) Dose Ordered Sig/Vanessa Route PRN Reason Start Time Stop Time Status Last Admin Dose Admin Acetaminophen (Tylenol) 650 mg EVERY 6 HOURS PRN GT Temp >100.5 08/20/19 22:00 09/19/19 21:59 08/31/19 12:28 Albuterol Sulfate (Proventil MDI) 2 puff Q6HRT INH 08/22/19 13:00 11/20/19 12:59 08/31/19 12:45 Apixaban (Eliquis) 2.5 mg BID GT 08/26/19 18:00 11/18/19 17:59 08/31/19 17:11 Chlorhexidine Gluconate (Antonella-Hex 2%) 1 applic DAILY@2000 TOPIC 08/21/19 20:00 11/19/19 19:59 08/30/19 21:23 Fentanyl Citrate 2500 mcg/Sodium Chloride 250 ml @ 0 mls/hr Q24H IV 08/28/19 20:00 09/04/19 19:59 08/31/19 11:14 Fluconazole/ Sodium Chloride 200 ml @ 100 mls/hr Q24H IV 08/28/19 13:30 09/04/19 13:29 08/31/19 14:18 Hydralazine HCl (Apresoline) 10 mg Q2H PRN IV Systolic >180 08/26/19 15:45 11/24/19 15:44 Ipratropium [place] (Atrovent Inh) 1 puffs Q6HRT INH 08/22/19 13:00 09/21/19 12:59 08/31/19 12:45 Levetiracetam (Keppra) 1,500 mg Q12HR GT 08/20/19 21:00 09/19/19 20:59 08/31/19 09:06 Linezolid 300 ml @ 300 mls/hr EVERY 12 HOURS IVPB 08/29/19 21:00 09/05/19 20:59 08/31/19 09:07 Lorazepam (Ativan 2mg/ml 1ml) 0.5 mg Q4H PRN IV For Anxiety 08/26/19 12:00 09/02/19 11:59 08/27/19 19:34 Meropenem 1 gm/ Sodium Chloride 55 ml @ 110 mls/hr Q8HR IVPB 08/28/19 14:00 09/02/19 13:59 08/31/19 14:17 Methylprednisolone Sodium Succinate (Solu-MEDROL) 20 mg EVERY 12 HOURS IVP 08/31/19 21:00 11/23/19 20:59 Metoprolol Tartrate (Lopressor) 50 mg Q12HR GT 08/26/19 21:00 11/24/19 11:59 08/31/19 09:07 Midazolam HCl (Versed 2mg/2ml vial) 1 mg Q2H PRN IVP agitation 08/26/19 12:45 11/24/19 12:44 08/30/19 13:30 Phenytoin (Dilantin) 250 mg DAILY GT 08/21/19 09:00 09/20/19 08:59 Future hold 08/31/19 09:37 Tamsulosin HCl (Flomax) 0.4 mg BEDTIME ORAL 08/20/19 21:00 09/19/19 20:59 08/30/19 21:20 Gwen Velásquez MD Aug 31, 2019 18:13
--- NOTE | 2019-08-31 19:30 | NUR ---
HAND-OFF: Report given to LORENE Byers.
--- NOTE | 2019-08-31 20:00 | NUR ---
NURSE NOTES: Received pt in no acute distress, calm, asleep, sedated with Fentanyl gtt at 150mcg/h to RASS-2. Orally inutbated and tolerating current vent settings of IMV 20, PS 10, fiO2.80 peep 7. Secretions scanty. Pt on prone position and tolerating well. TF on hold due to position, PEG intact. Rigth IJ TLC patent, Fentanyl gtt and TKO IV's infuses via this line. SR/ST on the monitor. Temp 100 rectally, cooling blanket on top of pt. FC intact. Continue to monitor sedation status and tolerance to prone position.
[2019-08-31] MEDS: Tamsulosin 0.4mg cap ORAL SCH (21:04)
[2019-08-31] MEDS: Dyna-Hex 2% Top Sol 2oz TOPIC SCH (21:06)
--- NOTE | 2019-08-31 21:27 | Neurology Progress Note ---
Interim History Interim History ROS Limited/Unobtainable: Yes Interim History intubated Objective Physical Exam Last Vital Signs Date Time Temp Pulse Resp B/P (MAP) Pulse Ox O2 Delivery O2 Flow Rate FiO2 08/31/19 21:00 101 65/43 08/31/19 20:06 24 93 Mechanical Ventilator 80 24 80 08/31/19 16:00 100.9 08/29/19 10:22 45.0 Laboratory Tests Test 08/31/19 04:00 White Blood Count 12.1 K/UL (4.8-10.8) H Red Blood Count 3.63 M/UL (4.70-6.10) L Hemoglobin 11.3 G/DL (14.2-18.0) L Hematocrit 34.1 % (42.0-52.0) L Mean Corpuscular Volume 94 FL (80-99) Mean Corpuscular Hemoglobin 31.2 PG (27.0-31.0) H Mean Corpuscular Hemoglobin Concent 33.3 G/DL (32.0-36.0) Red Cell Distribution Width 13.0 % (11.6-14.8) Platelet Count 349 K/UL (150-450) Mean Platelet Volume 7.1 FL (6.5-10.1) Neutrophils (%) (Auto) % (45.0-75.0) Lymphocytes (%) (Auto) % (20.0-45.0) Monocytes (%) (Auto) % (1.0-10.0) Eosinophils (%) (Auto) % (0.0-3.0) Basophils (%) (Auto) % (0.0-2.0) Differential Total Cells Counted 100 Neutrophils % (Manual) 87 % (45-75) H Lymphocytes % (Manual) 6 % (20-45) L Monocytes % (Manual) 6 % (1-10) Eosinophils % (Manual) 0 % (0-3) Basophils % (Manual) 0 % (0-2) Myelocytes % 1 % (0-0) H Band Neutrophils 0 % (0-8) Platelet Estimate Adequate Platelet Morphology Normal Red Blood Cell Morphology Normal Sodium Level 144 MMOL/L (136-145) Potassium Level 4.9 MMOL/L (3.5-5.1) Chloride Level 107 MMOL/L (98-107) Carbon Dioxide Level 32 MMOL/L (21-32) Anion Gap 5 mmol/L (5-15) Blood Urea Nitrogen 23 mg/dL (7-18) H Creatinine 0.8 MG/DL (0.55-1.30) Estimat Glomerular Filtration Rate > 60 mL/min (>60) Glucose Level 190 MG/DL (74-106) H Calcium Level 8.6 MG/DL (8.5-10.1) Ferritin 566 NG/ML (8-388) H C-Reactive Protein, Quantitative 31.9 mg/dL (0.00-0.90) H Neurologic Exam Objective intubated, sedated, minimal withdraw cc 35 min Impression/Recommendations Problems: (1) Suspected 2019 novel coronavirus infection (2) Multi-infarct dementia (3) Uncontrolled seizures (4) History of CVA (cerebrovascular accident) (5) Acute encephalopathy (6) Aspiration pneumonia (7) Respiratory failure Diagnostic Impression icu level of care cont tre and macario Monitor for seizures covid ro started atb wean off sedation when able Ivan Rose MD Aug 31, 2019 21:27
--- NOTE | 2019-08-31 22:00 | NUR ---
NURSE NOTES: Remains on the prone position, oral care done, repositioned head ; Pt remains sedated
[2019-09-01] VITALS (47 sets, daily range): BP systolic 76–171; BP diastolic 16–133
--- NOTE | 2019-09-01 | NUR ---
NURSE NOTES: Temp 101 rectally. Continues on cooling blanket.[id number]. Increased Fentanyl gtt to 200mcg/h. Remains on prone position, tolerating well.
[2019-09-01] MEDS: fentaNYL Citrate 2500mcg in NS 250ml IV SCH ×2 (01:10→14:56)
[2019-09-01] MEDS: Ipratropium Bromide Inhaler INH SCH ×4 (01:16→20:08)
[2019-09-01] MEDS: Albuterol 90mcg Inhaler 8gm INH SCH ×4 (01:16→20:08)
[2019-09-01] MEDS: Acetaminophen 650 MG SUPP RECTAL PRN ×2 (01:26→10:45)
--- NOTE | 2019-09-01 02:00 | NUR ---
NURSE NOTES: No distress, pt calm, asleep, sedated. Continues on prone position.
--- NOTE | 2019-09-01 05:00 | NUR ---
NURSE NOTES: Complete bed bath done. Returned to supine position with the help of 3 staff. Oral care done. Redressed PEG site, wounds redressed. Temp 99.6 rectally. Tolerating current vent setting of IMV, sats better when flipped. RIJ TLC intact.
[2019-09-01] MEDS: Meropenem 1 GM in NS 55 ML IVPB SCH ×3 (05:32→22:21)
--- NOTE | 2019-09-01 06:00 | NUR ---
NURSE NOTES: Calm, asleep sedated. But starts to move BUE. Bilat soft wrist restraints ordered, TF resumed at 50ml/h.
[2019-09-01 06:58] LABS: BASOPHILS % (AUTO) 0.7 % (0.0-2.0); HEMATOCRIT 33.2 % (42.0-52.0); HEMOGLOBIN 11.7 G/DL (14.2-18.0); LYMPHOCYTES % (AUTO) 9.9 % (20.0-45.0); MEAN CORPUSCULAR VOLUME 94 FL (80-99); MONOCYTES % (AUTO) 4.1 % (1.0-10.0); NEUTROPHILS % (AUTO) 83.3 % (45.0-75.0); PLATELET COUNT 313 K/UL (150-450); RED BLOOD COUNT 3.52 M/UL (4.70-6.10); RED CELL DISTRIBUTION WIDTH 12.9 % (11.6-14.8); WHITE BLOOD COUNT 9.7 K/UL (4.8-10.8)
[2019-09-01 07:05] LABS: ANION GAP 5 mmol/L (5-15); BLOOD UREA NITROGEN 22 mg/dL (7-18); CALCIUM 8.3 MG/DL (8.5-10.1); CARBON DIOXIDE 30 MMOL/L (21-32); CHLORIDE 110 MMOL/L (98-107); CREATININE 0.7 MG/DL (0.55-1.30); POTASSIUM 5.8 MMOL/L (3.5-5.1); SODIUM 145 MMOL/L (136-145)
--- NOTE | 2019-09-01 07:07 | NUR ---
HAND-OFF: Report given to Dayday Davis RN.
--- NOTE | 2019-09-01 07:08 | NUR ---
NURSE NOTES: Received patient from LORENE Byers. patient vital signs stable at this time. Patient sedated with RASS -2 on fentanyl at 200mcg/hr. Patient showing no sign of distress. Patient orally intubated with size 7.5 ET tube with 25cm at the lip line. ventilator setting SIMV 20, pressure support 10, tidal volume 400, FiO2 80%, and PEEP 7. Patient has gastrostomy tube running glucerna 1.2 at 50mL/hr at this time. No residual noted. patient has verduzco for retention that is patent and draining dark jaclyn urine at this time. Patient has sacral DTI and left heel un-stageable wound. Patient will be turned every two hours to prevent further injury. patient has right internal jugular central line that is patent, asymptomatic, and running fentanyl at this time at 200mcg/min. Will titrate per protocol. Patient has serum potassium of 5.8 this morning. Will ensure MD aware. bed in low position with bed alarm on and call light in reach at this time. Oral care and repositioning done at this time.
[2019-09-01] MEDS: Eliquis 2.5mg tablet GT SCH ×2 (09:25→17:42)
[2019-09-01] MEDS: Phenytoin Susp 100mg/4ml GT SCH (09:26)
[2019-09-01] MEDS: Metoprolol Tartrate 50mg tab GT SCH ×2 (09:27→20:53)
[2019-09-01] MEDS: Solu-MEDROL 40mg Inj IVP SCH ×2 (09:27→20:51)
[2019-09-01] MEDS: levETIRAcetam 500mg/5ml Liquid GT SCH ×2 (09:27→20:50)
--- NOTE | 2019-09-01 10:00 | NUR ---
NURSE NOTES: Rectal temperature >101 rectal. Cooling blanket placed under patient. Tylenol suppository given. Will continue to monitor.
[2019-09-01] MEDS ORDERED: Sodium Polystyrene Sulfonate 15gm Powder GT SCH (10:30)
--- NOTE | 2019-09-01 10:36 | General Progress Note ---
Assessment/Plan Assessment/Plan: 83YO M with HTN, HLD, COPD, CAD, Seizure disorder presenting with cough and shortness of breath. In the ED, patient was found to be tachycardic (130's) and tachypnic (33) and febrile at 101.2. #Hypoxemic acute respiratory failure #Septic shock #Covid19 positive #transaminitis - likely 2/2 to above, downtrending/stable #Fevers - improved #MRSA pneumonia #Drug reaction/Red Man syndrome - resolved -Appreciate ICU care -Pulm/CCM eval appreciated -Cont. contact plus droplet isolation. -Continuous phototypesetting equipment monitor. -Continue vent management per the ICU team, daily SBT -s/p Plaquenil -08/25 CXR reviewed, worsening b/l infiltrates -08/27 CXR w/Interval worsening of aeration with increasing interstitial and patchy bilateral airspace disease -08/26 BCx NGTD -08/26 SCx - MRSA -ID: cont. Zyvox, meropenem and Diflucan -ID and Pulm following, recs appreciated #Hyperkalemia -Kayexalate x 1 -BMP in AM #Abdominal distension - improved, likely Ileus -KUB reviewed -d/w general sx, likely ileus #History of Seizure disorder: -cont Dilantin and Keppra -Neurology following #Hypokalemia - resolved -replaced -ctm, replace PRN #Accelerated HTN - resolved #HLD #CAD #Eliquis use #Atrial flutter with rapid ventricular response #elevated troponins likely 2/2 demand ischemia, down trending -MTP 50 BID, hydralazine PRN -Eliquis 2.5 -Cardio following, recs appreciated #Sacral Decubitus Ulcer -general sx/wound care following -recs appreciated prognosis guarded I spent 72 minutes on this patient's case, and 37 mins was dedicated to critical care. Critical Care Services performed include: Telemetry Review Hemodynamic measurement interpretation Laboratory data review and interpretation Radiology image review and interpretation Ventilator setting review, management, and adjustment Discussion of patient's care with ICU team, ICU Nursing staff and/or consulting services Subjective Date patient seen: Sep 01, 2019 Time patient seen: 10:34 ROS Limited/Unobtainable: Yes Allergies: Coded Allergies: No Known Allergies (Unverified , 02/29/16) Subjective Covering for Dr. Leal Follow up for acute hypoxic resp failure, septic shock, COVID-19 positive Patient remains intubated K elevated to 5.8 this morning Objective Last 24 Hour Vital Signs Date Time Temp Pulse Resp B/P (MAP) Pulse Ox O2 Delivery O2 Flow Rate FiO2 09/01/19 09:27 106 142/75 09/01/19 09:06 106 25 80 09/01/19 07:29 102 26 97 Mechanical Ventilator 80 105 28 100 09/01/19 06:30 101 25 145/75 (98) 96 09/01/19 06:00 102 26 131/79 (96) 96 09/01/19 06:00 25 Mechanical Ventilator 80 09/01/19 05:58 102 25 09/01/19 05:56 102 09/01/19 05:30 102 25 145/81 (102) 96 09/01/19 05:26 102 25 80 09/01/19 05:00 26 Mechanical Ventilator 80 09/01/19 05:00 107 27 133/86 (102) 90 09/01/19 04:30 107 25 93/48 (63) 91 09/01/19 04:00 100.4 107 24 76/32 (47) 90 09/01/19 04:00 Mechanical Ventilator 09/01/19 04:00 25 Mechanical Ventilator 80 09/01/19 04:00 80 09/01/19 03:42 110 27 80 09/01/19 03:30 111 25 90/16 (40) 90 09/01/19 03:00 113 25 112/90 (97) 90 09/01/19 03:00 26 Mechanical Ventilator 80 09/01/19 02:30 115 26 117/82 (94) 89 09/01/19 02:00 100.4 09/01/19 02:00 26 Mechanical Ventilator 80 09/01/19 02:00 115 28 102/67 (79) 88 09/01/19 01:30 112 27 97/58 (71) 91 09/01/19 01:16 114 27 91 Mechanical Ventilator 80 111 28 80 09/01/19 01:10 26 Mechanical Ventilator 80 09/01/19 01:00 112 27 119/65 (83) 90 09/01/19 00:30 113 28 129/95 (106) 90 09/01/19 00:00 101.0 114 28 114/40 (64) 90 20 00:00 80 41920 00:00 Mechanical Ventilator 20 00:00 27 Mechanical Ventilator 80 20 00:00 110 4/1820 23:30 116 31 136/61 (86) 89 4/1820 23:00 112 23 137/102 (114) 91 1820 23:00 26 Mechanical Ventilator 80 20 22:30 108 27 130/80 (97) 93 1820 22:00 26 Mechanical Ventilator 80 20 22:00 106 24 132/80 (97) 92 1820 21:39 104 25 80 20 21:30 104 22 91/76 (81) 93 20 21:00 101 26 65/43 (50) 90 20 21:00 24 Mechanical Ventilator 80 20 21:00 101 65/43 20 20:30 99 30 86/13 (37) 90 08/31/19 20:06 88 24 93 Mechanical Ventilator 80 89 24 80 20 20:00 80 20 20:00 Mechanical Ventilator 20 20:00 106 20 20:00 100.0 93 40 94/58 (70) 93 20 20:00 24 Mechanical Ventilator 80 20 19:30 93 35 85/38 (54) 94 1820 19:00 26 Mechanical Ventilator 100 20 19:00 94 34 88/44 (59) 93 1820 18:30 96 24 91/43 (59) 91 1820 18:00 98 23 116/45 (68) 89 1820 18:00 23 Mechanical Ventilator 100 1820 17:30 93 23 80 1820 17:30 23 Mechanical Ventilator 100 1820 17:30 95 23 113/34 (60) 94 4/18/20 17:00 28 Mechanical Ventilator 80 18/20 17:00 95 23 136/67 (90) 96 4/1820 16:30 98 24 137/58 (84) 96 1820 16:00 Mechanical Ventilator 20 16:00 80 4/18/20 16:00 100.9 99 24 140/66 (90) 95 08/31/19 16:00 98 08/31/19 16:00 28 Mechanical Ventilator 80 08/31/19 15:30 103 24 140/66 (90) 94 08/31/19 15:00 103 24 130/80 (97) 93 08/31/19 15:00 24 Mechanical Ventilator 80 08/31/19 14:44 104 23 80 08/31/19 14:30 104 24 146/61 (89) 93 08/31/19 14:00 28 Mechanical Ventilator 80 08/31/19 14:00 104 25 123/66 (85) 93 08/31/19 13:30 105 24 131/77 (95) 94 08/31/19 13:00 27 Mechanical Ventilator 80 08/31/19 13:00 106 25 137/87 (104) 92 08/31/19 12:58 100.5 08/31/19 12:45 106 23 91 Mechanical Ventilator 80 109 28 80 08/31/19 12:30 107 24 147/74 (98) 92 08/31/19 12:00 101.2 108 23 154/76 (102) 91 08/31/19 12:00 Mechanical Ventilator 08/31/19 12:00 28 Mechanical Ventilator 80 08/31/19 12:00 80 08/31/19 12:00 106 08/31/19 11:30 107 26 149/85 (106) 91 08/31/19 11:14 25 Mechanical Ventilator 80 08/31/19 11:12 105 25 80 08/31/19 11:00 105 26 160/81 (107) 91 08/31/19 11:00 26 Mechanical Ventilator 80 Intake and Output 08/31/19 09/01/19 19:00 07:00 Intake Total 1297.5 ml 640 ml Output Total 550 ml 525 ml Balance 747.5 ml 115 ml Free Water 60 ml IV Total 787.5 ml 590 ml Tube Feeding 450 ml 50 ml Output Urine Total 550 ml 525 ml Laboratory Tests 09/01/19 05:40: White Blood Count 9.7, Red Blood Count 3.52L, Hemoglobin 11.7L, Hematocrit 33.2L , Mean Corpuscular Volume 94, Mean Corpuscular Hemoglobin 33.1H, Mean Corpuscular Hemoglobin Concent 35.2, Red Cell Distribution Width 12.9, Platelet Count 313, Mean Platelet Volume 6.7, Neutrophils (%) (Auto) 83.3H, Lymphocytes ( %) (Auto) 9.9L, Monocytes (%) (Auto) 4.1, Eosinophils (%) (Auto) 2.0, Basophils (%) (Auto) 0.7, Sodium Level 145, Potassium Level 5.8H, Chloride Level 110H, Carbon Dioxide Level 30, Anion Gap 5, Blood Urea Nitrogen 22H, Creatinine 0.7, Estimat Glomerular Filtration Rate > 60, Glucose Level 161H, Calcium Level 8.3L Height (Feet): 5 Height (Inches): 8.00 Weight (Pounds): 166 General Appearance: other - Intubated Cardiovascular: normal rate, regular rhythm Respiratory/Chest: lungs clear, normal breath sounds Sergo Demarco MD Sep 01, 2019 10:36
--- NOTE | 2019-09-01 11:24 | Pulmonolgy Critical Care Note ---
Critical Care - Asmt/Plan Problems: (1) Respiratory failure (2) Suspected 2019 novel coronavirus infection (3) History of CVA (cerebrovascular accident) (4) Acute encephalopathy (5) Multi-infarct dementia (6) Uncontrolled seizures Assessment/Plan: Continue ventilatory support ---> wean via SIMV Monitor gas exchange Proning 12hr on/off MDI in line with Vent Continue SM 20 IV BID (D8) and taper Completed 5 days of Plaquenil Zyvox/Candis/Flucon per ID Daily CRP and ferritin D/W pharmacy RE: Tociluzumab - per pharmacist on national shortage and cannot get, will continue to follow up Remdesivir limited to trial, cannot get under compassionate care Monitor volumes and renal function ICU sedation: Fent gtt for RASS -2 with PRN Versed F/U neuro recs, continue AED's Monitor LFT's TF's DVT Px: Eliquis FC, continue to discuss GOC Disposition: keep in ICU Time Spent (Minutes): 40 Notes Reviewed: net maker, cardio, ID, neuro Discussed with: nurses, consultants Critical Care - Objective Last 24 Hour Vital Signs Date Time Temp Pulse Resp B/P (MAP) Pulse Ox O2 Delivery O2 Flow Rate FiO2 09/01/19 09:27 106 142/75 09/01/19 09:06 106 25 80 09/01/19 07:29 102 26 97 Mechanical Ventilator 80 105 28 100 09/01/19 06:30 101 25 145/75 (98) 96 09/01/19 06:00 102 26 131/79 (96) 96 09/01/19 06:00 25 Mechanical Ventilator 80 09/01/19 05:58 102 25 09/01/19 05:56 102 09/01/19 05:30 102 25 145/81 (102) 96 09/01/19 05:26 102 25 80 09/01/19 05:00 26 Mechanical Ventilator 80 09/01/19 05:00 107 27 133/86 (102) 90 09/01/19 04:30 107 25 93/48 (63) 91 09/01/19 04:00 100.4 107 24 76/32 (47) 90 09/01/19 04:00 Mechanical Ventilator 09/01/19 04:00 25 Mechanical Ventilator 80 09/01/19 04:00 80 09/01/19 03:42 110 27 80 09/01/19 03:30 111 25 90/16 (40) 90 09/01/19 03:00 113 25 112/90 (97) 90 09/01/19 03:00 26 Mechanical Ventilator 80 09/01/19 02:30 115 26 117/82 (94) 89 09/01/19 02:00 100.4 09/01/19 02:00 26 Mechanical Ventilator 80 09/01/19 02:00 115 28 102/67 (79) 88 09/01/19 01:30 112 27 97/58 (71) 91 09/01/19 01:16 114 27 91 Mechanical Ventilator 80 111 28 80 09/01/19 01:10 26 Mechanical Ventilator 80 09/01/19 01:00 112 27 119/65 (83) 90 09/01/19 00:30 113 28 129/95 (106) 90 09/01/19 00:00 101.0 114 28 114/40 (64) 90 09/01/19 00:00 80 09/01/19 00:00 Mechanical Ventilator 09/01/19 00:00 27 Mechanical Ventilator 80 09/01/19 00:00 110 08/31/19 23:30 116 31 136/61 (86) 89 08/31/19 23:00 112 23 137/102 (114) 91 08/31/19 23:00 26 Mechanical Ventilator 80 08/31/19 22:30 108 27 130/80 (97) 93 08/31/19 22:00 26 Mechanical Ventilator 80 08/31/19 22:00 106 24 132/80 (97) 92 08/31/19 21:39 104 25 80 08/31/19 21:30 104 22 91/76 (81) 93 08/31/19 21:00 101 26 65/43 (50) 90 08/31/19 21:00 24 Mechanical Ventilator 80 08/31/19 21:00 101 65/43 08/31/19 20:30 99 30 86/13 (37) 90 08/31/19 20:06 88 24 93 Mechanical Ventilator 80 89 24 80 20 20:00 80 20 20:00 Mechanical Ventilator 08/31/19 20:00 106 08/31/19 20:00 100.0 93 40 94/58 (70) 93 08/31/19 20:00 24 Mechanical Ventilator 80 4/18/20 19:30 93 35 85/38 (54) 94 4/1820 19:00 26 Mechanical Ventilator 100 20 19:00 94 34 88/44 (59) 93 41820 18:30 96 24 91/43 (59) 91 4/1820 18:00 98 23 116/45 (68) 89 41820 18:00 23 Mechanical Ventilator 100 20 17:30 93 23 80 20 17:30 23 Mechanical Ventilator 100 08/31/19 17:30 95 23 113/34 (60) 94 20 17:00 28 Mechanical Ventilator 80 08/31/19 17:00 95 23 136/67 (90) 96 08/31/19 16:30 98 24 137/58 (84) 96 08/31/19 16:00 Mechanical Ventilator 08/31/19 16:00 80 08/31/19 16:00 100.9 99 24 140/66 (90) 95 08/31/19 16:00 98 08/31/19 16:00 28 Mechanical Ventilator 80 08/31/19 15:30 103 24 140/66 (90) 94 08/31/19 15:00 103 24 130/80 (97) 93 08/31/19 15:00 24 Mechanical Ventilator 80 08/31/19 14:44 104 23 80 08/31/19 14:30 104 24 146/61 (89) 93 08/31/19 14:00 28 Mechanical Ventilator 80 08/31/19 14:00 104 25 123/66 (85) 93 08/31/19 13:30 105 24 131/77 (95) 94 08/31/19 13:00 27 Mechanical Ventilator 80 08/31/19 13:00 106 25 137/87 (104) 92 08/31/19 12:58 100.5 08/31/19 12:45 106 23 91 Mechanical Ventilator 80 109 28 80 08/31/19 12:30 107 24 147/74 (98) 92 08/31/19 12:00 101.2 108 23 154/76 (102) 91 08/31/19 12:00 Mechanical Ventilator 08/31/19 12:00 28 Mechanical Ventilator 80 08/31/19 12:00 80 08/31/19 12:00 106 08/31/19 11:30 107 26 149/85 (106) 91 Status: sedated - intubated Condition: critical HEENT: other - R IJ Lungs: other - Int sedated Heart: HR/BP unstable Micro: Microbiology Date/Time Source Procedure Growth Status 08/30/19 04:30 Urine,Catheterized Urine Culture - Final NO GROWTH AFTER 48 HOURS Complete Blood Sugars: BS controlled Critical Care - Subjective ROS Limited/Unobtainable: Yes ICU Day: 11 Intubation Day: 12 Interval Events: Proned Tm 101.2 NAEO Condition: critical IV Access: central EKG Rhythm: Sinus Tachycardia FI02: 80 Vent Support Breath Rate: 20 Vent Support Mode: IMV/SIMV Vent Tidal Volume: 400 Sputum Amount: Small PEEP: 7.0 PIP: 29 Secretions: Small clear Fluids: SLIV Drips: Fent Tube Feeding Amount: 50 I&O: Intake and Output 08/31/19 09/01/19 19:00 07:00 Intake Total 1297.5 ml 640 ml Output Total 550 ml 525 ml Balance 747.5 ml 115 ml Free Water 60 ml IV Total 787.5 ml 590 ml Tube Feeding 450 ml 50 ml Output Urine Total 550 ml 525 ml Subjective: REYMUNDO CXR: No change ET-Tube: 7.5 ET Position: 25 Labs: Laboratory Tests Test 09/01/19 05:40 White Blood Count 9.7 K/UL (4.8-10.8) Red Blood Count 3.52 M/UL (4.70-6.10) L Hemoglobin 11.7 G/DL (14.2-18.0) L Hematocrit 33.2 % (42.0-52.0) L Mean Corpuscular Volume 94 FL (80-99) Mean Corpuscular Hemoglobin 33.1 PG (27.0-31.0) H Mean Corpuscular Hemoglobin Concent 35.2 G/DL (32.0-36.0) Red Cell Distribution Width 12.9 % (11.6-14.8) Platelet Count 313 K/UL (150-450) Mean Platelet Volume 6.7 FL (6.5-10.1) Neutrophils (%) (Auto) 83.3 % (45.0-75.0) H Lymphocytes (%) (Auto) 9.9 % (20.0-45.0) L Monocytes (%) (Auto) 4.1 % (1.0-10.0) Eosinophils (%) (Auto) 2.0 % (0.0-3.0) Basophils (%) (Auto) 0.7 % (0.0-2.0) Sodium Level 145 MMOL/L (136-145) Potassium Level 5.8 MMOL/L (3.5-5.1) H Chloride Level 110 MMOL/L (98-107) H Carbon Dioxide Level 30 MMOL/L (21-32) Anion Gap 5 mmol/L (5-15) Blood Urea Nitrogen 22 mg/dL (7-18) H Creatinine 0.7 MG/DL (0.55-1.30) Estimat Glomerular Filtration Rate > 60 mL/min (>60) Glucose Level 161 MG/DL (74-106) H Calcium Level 8.3 MG/DL (8.5-10.1) David Arana MD Sep 01, 2019 11:24
--- NOTE | 2019-09-01 12:00 | NUR ---
NURSE NOTES: Patient temp now 99.1 rectal. patient remains on cooling blanket. Patient sedated with RASS -2 on fentanyl at 150mcg/hr. Patient showing no sign of distress. Patient remains orally intubated with size 7.5 ET tube with 25cm at the lip line. ventilator setting SIMV 20, pressure support 10, tidal volume 400, FiO2 80%, and PEEP 7. Gastrostomy tube running glucerna 1.2 at 50mL/hr at this time. No residual noted. Swartz patent and draining dark jaclyn urine at this time. right internal jugular central line patent, asymptomatic, and running fentanyl at this time at 150mcg/min. Will titrate per protocol. Bed in low position with bed alarm on and call light in reach at this time. Oral care and repositioning done at this time.
--- NOTE | 2019-09-01 13:39 | Surgery Progress Note ---
Surgery Progress Note Subjective Additional Comments labs ntoed imaging reviewed ill appearing Objective Last 24 Hour Vital Signs Date Time Temp Pulse Resp B/P (MAP) Pulse Ox O2 Delivery O2 Flow Rate FiO2 09/01/19 13:11 88 25 97 Mechanical Ventilator 80 94 29 100 09/01/19 12:00 93 24 133/80 (97) 97 09/01/19 12:00 94 09/01/19 12:00 Mechanical Ventilator 09/01/19 11:30 102 24 145/73 (97) 96 09/01/19 11:15 100.6 09/01/19 11:15 104 23 80 09/01/19 11:00 105 23 144/74 (97) 95 09/01/19 10:30 112 24 148/81 (103) 93 09/01/19 10:00 109 24 137/101 (113) 95 09/01/19 09:30 108 24 149/72 (97) 95 09/01/19 09:27 106 142/75 09/01/19 09:06 106 25 80 09/01/19 09:00 107 25 142/75 (97) 96 09/01/19 08:30 105 25 136/76 (96) 97 09/01/19 08:00 106 09/01/19 08:00 101.6 104 22 143/84 (103) 97 09/01/19 08:00 Mechanical Ventilator 09/01/19 07:30 102 25 138/82 (100) 96 09/01/19 07:29 102 26 97 Mechanical Ventilator 80 105 28 100 09/01/19 07:00 100 25 142/68 (92) 96 09/01/19 06:30 101 25 145/75 (98) 96 09/01/19 06:00 102 26 131/79 (96) 96 09/01/19 06:00 25 Mechanical Ventilator 80 09/01/19 05:58 102 25 09/01/19 05:56 102 09/01/19 05:30 102 25 145/81 (102) 96 09/01/19 05:26 102 25 80 09/01/19 05:00 26 Mechanical Ventilator 80 09/01/19 05:00 107 27 133/86 (102) 90 09/01/19 04:30 107 25 93/48 (63) 91 09/01/19 04:00 100.4 107 24 76/32 (47) 90 09/01/19 04:00 Mechanical Ventilator 09/01/19 04:00 25 Mechanical Ventilator 80 09/01/19 04:00 80 09/01/19 03:42 110 27 80 09/01/19 03:30 111 25 90/16 (40) 90 09/01/19 03:00 113 25 112/90 (97) 90 09/01/19 03:00 26 Mechanical Ventilator 80 09/01/19 02:30 115 26 117/82 (94) 89 09/01/19 02:00 26 Mechanical Ventilator 80 09/01/19 02:00 115 28 102/67 (79) 88 09/01/19 01:30 112 27 97/58 (71) 91 09/01/19 01:16 114 27 91 Mechanical Ventilator 80 111 28 80 09/01/19 01:10 26 Mechanical Ventilator 80 09/01/19 01:00 112 27 119/65 (83) 90 09/01/19 00:30 113 28 129/95 (106) 90 09/01/19 00:00 101.0 114 28 114/40 (64) 90 09/01/19 00:00 80 09/01/19 00:00 Mechanical Ventilator 09/01/19 00:00 27 Mechanical Ventilator 80 09/01/19 00:00 110 08/31/19 23:30 116 31 136/61 (86) 89 08/31/19 23:00 112 23 137/102 (114) 91 08/31/19 23:00 26 Mechanical Ventilator 80 08/31/19 22:30 108 27 130/80 (97) 93 08/31/19 22:00 26 Mechanical Ventilator 80 08/31/19 22:00 106 24 132/80 (97) 92 1820 21:39 104 25 80 08/31/19 21:30 104 22 91/76 (81) 93 20 21:00 101 26 65/43 (50) 90 08/31/19 21:00 24 Mechanical Ventilator 80 08/31/19 21:00 101 65/43 08/31/19 20:30 99 30 86/13 (37) 90 08/31/19 20:06 88 24 93 Mechanical Ventilator 80 89 24 80 08/31/19 20:00 80 08/31/19 20:00 Mechanical Ventilator 08/31/19 20:00 106 08/31/19 20:00 100.0 93 40 94/58 (70) 93 08/31/19 20:00 24 Mechanical Ventilator 80 08/31/19 19:30 93 35 85/38 (54) 94 08/31/19 19:00 26 Mechanical Ventilator 100 08/31/19 19:00 94 34 88/44 (59) 93 08/31/19 18:30 96 24 91/43 (59) 91 08/31/19 18:00 98 23 116/45 (68) 89 08/31/19 18:00 23 Mechanical Ventilator 100 08/31/19 17:30 93 23 80 08/31/19 17:30 23 Mechanical Ventilator 100 08/31/19 17:30 95 23 113/34 (60) 94 08/31/19 17:00 28 Mechanical Ventilator 80 08/31/19 17:00 95 23 136/67 (90) 96 08/31/19 16:30 98 24 137/58 (84) 96 08/31/19 16:00 Mechanical Ventilator 08/31/19 16:00 80 08/31/19 16:00 100.9 99 24 140/66 (90) 95 08/31/19 16:00 98 08/31/19 16:00 28 Mechanical Ventilator 80 08/31/19 15:30 103 24 140/66 (90) 94 08/31/19 15:00 103 24 130/80 (97) 93 08/31/19 15:00 24 Mechanical Ventilator 80 08/31/19 14:44 104 23 80 08/31/19 14:30 104 24 146/61 (89) 93 08/31/19 14:00 28 Mechanical Ventilator 80 08/31/19 14:00 104 25 123/66 (85) 93 I&O Intake and Output 08/31/19 09/01/19 19:00 07:00 Intake Total 1297.5 ml 690 ml Output Total 550 ml 605 ml Balance 747.5 ml 85 ml Free Water 60 ml IV Total 787.5 ml 590 ml Tube Feeding 450 ml 100 ml Output Urine Total 550 ml 605 ml Dressing: other Wound: other Drains: other Cardiovascular: RSR Respiratory: decreased breath sounds Abdomen: soft, non-tender, present bowel sounds Extremities: no cyanosis Laboratory Tests Test 09/01/19 05:40 White Blood Count 9.7 K/UL (4.8-10.8) Red Blood Count 3.52 M/UL (4.70-6.10) L Hemoglobin 11.7 G/DL (14.2-18.0) L Hematocrit 33.2 % (42.0-52.0) L Mean Corpuscular Volume 94 FL (80-99) Mean Corpuscular Hemoglobin 33.1 PG (27.0-31.0) H Mean Corpuscular Hemoglobin Concent 35.2 G/DL (32.0-36.0) Red Cell Distribution Width 12.9 % (11.6-14.8) Platelet Count 313 K/UL (150-450) Mean Platelet Volume 6.7 FL (6.5-10.1) Neutrophils (%) (Auto) 83.3 % (45.0-75.0) H Lymphocytes (%) (Auto) 9.9 % (20.0-45.0) L Monocytes (%) (Auto) 4.1 % (1.0-10.0) Eosinophils (%) (Auto) 2.0 % (0.0-3.0) Basophils (%) (Auto) 0.7 % (0.0-2.0) Sodium Level 145 MMOL/L (136-145) Potassium Level 5.8 MMOL/L (3.5-5.1) H Chloride Level 110 MMOL/L (98-107) H Carbon Dioxide Level 30 MMOL/L (21-32) Anion Gap 5 mmol/L (5-15) Blood Urea Nitrogen 22 mg/dL (7-18) H Creatinine 0.7 MG/DL (0.55-1.30) Estimat Glomerular Filtration Rate > 60 mL/min (>60) Glucose Level 161 MG/DL (74-106) H Calcium Level 8.3 MG/DL (8.5-10.1) L Plan Problems: (1) Decubitus skin ulcer Assessment & Plan: Patient presented on admission with Sacral DTPI. Base of wound is purple with maroon borders. Unstageable pressure injury Plantar L heel . Base of wound is necrotic with marginal erythema along borders. Non-blanching erythema R heel. Sacral DTPI now evolving since admission. Several opening within base of wound. No exudate noted. Open areas are moist and jason. Surrounding base of wound is purple with erythema along borders. Unstageable Pressure injury Plantar L heel. Base of wound is necrotic. Edges adherent to base of wound. Tx.Plan: Cleanse Sacral wound with Saline. Apply Therahoney. Apply Moisture Barrier Paste periwound. Cover with Optifoam drsg. Change every 3 days and prn. Apply Betadine to Plantar L heel. Cover with Optifoam drsg. Change every 3 days and prn. Apply Cavilon Skin Barrier R heel. Cover with Optifoam drsg. Change every 7 days and prn. Reposition at least every 2hours or as tolerated Off-load heels with pillow. Nutritional optimization will follow with recs air mattress once off isolation DAILY ESTIMATED NEEDS: Needs based on Critical care, Wounds/ 53kg abw 22-28 kcals/kg 2111-7731 total kcals 1.25-2 g protein/kg 66-106 g total protein 25-30 mL/kg 2433-5914 total fluid mLs NUTRITION DIAGNOSIS: * Swallowing difficulty R/T dysphagia as evidenced by PEG dep, s/p intubation, on GT feeding. * Increased kcal/prot needs R/T wound healing as evidenced by pt admitted w/ evolving DTPI sacral wound and unstageable lt heel wound. CURRENT TF:Glucerna 1.2 @50ml/hr x22 hrs ENTERAL NUTRITION RECOMMENDATIONS: Glucerna 1.2 @ 50ml/hr x 22 hrs (hold 1 hr before and after Dilantin QD) to provide 1100ml, 1320kcal, 66g prot, 886ml free water * Maintain Glucerna 1.2 for carb control, BGs elevated. * Hold 1 hr before and after Dilantin med * HOB over 30 degrees/ without IVF, H20 flush of 150ml q 6 hrs FOR 24 HRS TF RUN WITHOUT DILANTIN (Dilantin currently held) : okay to keep the same TF rate of Glucerna 1.2 @ 50ml/hr x 24 hrs to provide 1200ml, 1440kcal, 72g prot 966ml free water -> will still meet 100% est kcal/prot needs ADDITIONAL RECOMMENDATIONS: * Per SNF record, ht is 60", wt is 149lbs (08/14/19) Rec calibrated bedscale wt * Rec NISS w/ TF: BGs elevated, now on Solumedrol * Wound healing: add Vit C 500mg QD + Giancarlo 1pkt BID via PEG * Monitor lytes, replete as needed . (2) Multi-infarct dementia (3) Uncontrolled seizures (4) History of CVA (cerebrovascular accident) (5) Acute encephalopathy (6) Aspiration pneumonia Assessment & Plan: Interval worsening of aeration with increasing interstitial and patchy bilateral airspace disease. Findings may be on the basis of worsening CHF/pulmonary edema although multifocal pneumonia must also be considered. Endotracheal tube injection is a central line remain in place. 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 (7) Respiratory failure (8) Suspected 2019 novel coronavirus infection Assessment & Plan: testing (9) Abdominal distension Assessment & Plan: pending KUB +BM ulikely obstruction will monitor Sundeep Benavidez Sep 01, 2019 13:39
--- NOTE | 2019-09-01 14:00 | NUR ---
NURSE NOTES: Vital signs stable. Patient repositioned. Patient remains on cooling blanket. Will continue to monitor.
[2019-09-01] MEDS ORDERED: NS 275ml ONE ×2 (14:36→14:37)
[2019-09-01] MEDS ORDERED: Tubing IV Secondary IV ONE (14:37)
--- NOTE | 2019-09-01 16:00 | NUR ---
NURSE NOTES: Patient temp now 98.6 rectal. patient remains on cooling blanket. Patient sedated with RASS -2 on fentanyl at 150mcg/hr. Patient showing no sign of distress. Patient remains orally intubated with size 7.5 ET tube with 25cm at the lip line. ventilator setting SIMV 20, pressure support 10, tidal volume 400, FiO2 80%, and PEEP 7. Gastrostomy tube running glucerna 1.2 at 50mL/hr at this time. No residual noted. Swartz patent and draining dark jaclyn urine at this time. right internal jugular central line patent, asymptomatic, and running fentanyl at this time at 150mcg/min. Will titrate per protocol. Bed in low position with bed alarm on and call light in reach at this time. Oral care and repositioning done at this time.
--- NOTE | 2019-09-01 18:00 | NUR ---
NURSE NOTES: Vital signs stable. unable to prone patient at this time. WIll endorse to police shift commander RN to prone patient. Will continue to monitor. patient repositioned. Temperature stable. patient remains on cooling blanket.
--- NOTE | 2019-09-01 19:30 | NUR ---
HAND-OFF: Report given to LORENE Seals. Endorsed to prone patient when possible.
--- NOTE | 2019-09-01 19:30 | NUR ---
NURSE NOTES: Received pt off restraints , orally intubated on ac mode, Fentanyl drip at 150mcg/hr to attend RASS score-2, SR-ST on ther monitor with 1st degree avb, afebrile, sacral decub and left heel unstageable covered with optifoam . will continue to monitor.
--- NOTE | 2019-09-01 20:10 | NUR ---
RESPIRATORY NOTE: Received pt on SIMV 20, 400VT, 80%, PEEP +7, PS 10. Pt intubated w/ ETT 7.5 @ 26cm lipline, secured by anchorfast. Pt sedated. B/S nasir. rhonchi, sxn small to moderate amounts of thick/thin, madsen-yellow secretions w/ occasional red specks. Vent plugged into red outlet, ambubag at bedside. Pt in no apparent distress at this time. Will continue to monitor pt.
--- NOTE | 2019-09-01 20:27 | Neurology Progress Note ---
Interim History Interim History ROS Limited/Unobtainable: Yes Interim History no seizures intubated sedated Objective Physical Exam Last Vital Signs Date Time Temp Pulse Resp B/P (MAP) Pulse Ox O2 Delivery O2 Flow Rate FiO2 09/01/19 18:30 83 25 118/76 (90) 97 09/01/19 16:40 80 09/01/19 16:00 99.1 09/01/19 16:00 Mechanical Ventilator 08/29/19 10:22 45.0 Laboratory Tests Test 09/01/19 05:40 White Blood Count 9.7 K/UL (4.8-10.8) Red Blood Count 3.52 M/UL (4.70-6.10) L Hemoglobin 11.7 G/DL (14.2-18.0) L Hematocrit 33.2 % (42.0-52.0) L Mean Corpuscular Volume 94 FL (80-99) Mean Corpuscular Hemoglobin 33.1 PG (27.0-31.0) H Mean Corpuscular Hemoglobin Concent 35.2 G/DL (32.0-36.0) Red Cell Distribution Width 12.9 % (11.6-14.8) Platelet Count 313 K/UL (150-450) Mean Platelet Volume 6.7 FL (6.5-10.1) Neutrophils (%) (Auto) 83.3 % (45.0-75.0) H Lymphocytes (%) (Auto) 9.9 % (20.0-45.0) L Monocytes (%) (Auto) 4.1 % (1.0-10.0) Eosinophils (%) (Auto) 2.0 % (0.0-3.0) Basophils (%) (Auto) 0.7 % (0.0-2.0) Sodium Level 145 MMOL/L (136-145) Potassium Level 5.8 MMOL/L (3.5-5.1) H Chloride Level 110 MMOL/L (98-107) H Carbon Dioxide Level 30 MMOL/L (21-32) Anion Gap 5 mmol/L (5-15) Blood Urea Nitrogen 22 mg/dL (7-18) H Creatinine 0.7 MG/DL (0.55-1.30) Estimat Glomerular Filtration Rate > 60 mL/min (>60) Glucose Level 161 MG/DL (74-106) H Calcium Level 8.3 MG/DL (8.5-10.1) L Neurologic Exam Objective intubated, sedated, minimal withdraw cc 35 min Impression/Recommendations Problems: (1) Suspected 2019 novel coronavirus infection (2) Multi-infarct dementia (3) Uncontrolled seizures (4) History of CVA (cerebrovascular accident) (5) Acute encephalopathy (6) Aspiration pneumonia (7) Respiratory failure Diagnostic Impression icu level of care cont tre and macario Monitor for seizures covid ro started atb wean off sedation when able Ivan Rose MD Sep 01, 2019 20:27
[2019-09-01] MEDS: Dyna-Hex 2% Top Sol 2oz TOPIC SCH (20:35)
[2019-09-01] MEDS: Tamsulosin 0.4mg cap ORAL SCH (20:51)
--- NOTE | 2019-09-01 22:30 | NUR ---
NURSE NOTES: Place pt on prone position. 4 RNS and 2RTs together.
--- NOTE | 2019-09-01 22:45 | NUR ---
NURSE NOTES: Pt did not tolerate prone position. BP 169/91 ST 101. desat 79-80s.place pt back to supine position.
--- NOTE | 2019-09-01 23:00 | NUR ---
NURSE NOTES: Pt On resp. distress RR 34/min BP161/91. back to previous ac mode.
--- NOTE | 2019-09-01 23:00 | NUR ---
RESPIRATORY NOTE: Pt placed back on AC mode w/ previous vent order. Pt became unstable during attempt to prone. Pt desat, increased WOB, increased BP. Proning cancelled & placed back on supine/semi fowlers. Pt working hard on SIMV so placed back on previous vent settings of AC 18, 400VT, 100%, PEEP +7. Pt still sedated. Slowly calming down on AC mode. Will continue to monitor pt.
[2019-09-02] VITALS (32 sets, daily range): BP systolic 107–143; BP diastolic 50–95
[2019-09-02] MEDS: Ipratropium Bromide Inhaler INH SCH ×4 (00:55→19:10)
[2019-09-02] MEDS: Albuterol 90mcg Inhaler 8gm INH SCH ×4 (00:55→19:10)
--- NOTE | 2019-09-02 02:00 | NUR ---
NURSE NOTES: Resting well at this time. no resp. distress noted.
--- NOTE | 2019-09-02 03:00 | NUR ---
NURSE NOTES: Back to SIMV mode.
--- NOTE | 2019-09-02 03:40 | NUR ---
RESPIRATORY NOTE: Pt placed back on SIMV 20, 400VT, 100%, PEEP +7, PS 10. Pt tolerating well. Will continue to monitor pt.
--- NOTE | 2019-09-02 05:00 | NUR ---
NURSE NOTES: Complete bed bath with bed changed done.
[2019-09-02] MEDS: Meropenem 1 GM in NS 55 ML IVPB SCH ×3 (05:36→22:14)
[2019-09-02 05:39] LABS: ANION GAP 4 mmol/L (5-15); BLOOD UREA NITROGEN 23 mg/dL (7-18); CARBON DIOXIDE 33 MMOL/L (21-32); CHLORIDE 106 MMOL/L (98-107); CREATININE 0.7 MG/DL (0.55-1.30); POTASSIUM 5.6 MMOL/L (3.5-5.1); SODIUM 143 MMOL/L (136-145)
--- NOTE | 2019-09-02 06:00 | NUR ---
NURSE NOTES: Placed pt on 200mcg/min of Fentanyl due to RR on the 30s.Will continue to monitor.
--- NOTE | 2019-09-02 07:15 | NUR ---
RESPIRATORY NOTES PT received on SIMV, however, was found in respiratory distress - RR 40-50, Spomn. Addendum: 09/02/19 at 0838 by ALLEY TELLEZ RT Continuation.. Spontaneous Vt <150. Blood gas was drawn - pH 7.309, pCO2 70.1, HCO3- 34.4, PT was then placed back on previous vent settings: AC/VC 20RR, 400Vt, PEEP+7, FiO2 100%. PT no longer in respiratory distress. Will continue to monitor. LORENE Ornelas aware.
--- NOTE | 2019-09-02 07:38 | NUR ---
HAND-OFF: Report given to Johnson PAULSON.
--- NOTE | 2019-09-02 07:39 | NUR ---
NURSE NOTES: Received patient from Bozena PAULSON. Patient is sedated, RASS -2. Sinus Rhythm on the heart monitor, HR 95. Receiving oxygen via ET Tube 7.5, 25cm at the lip line. IV site is Right IJ TLC receiving Fentanyl at 200mcg/hr G-tube is intact and receiving Glucerna 1.2 at 50cc/hr. Swartz catheter is intact and draining. Bed is locked, placed in lowest position, side rails up x3, side rails padded, bed alarm on, call light within reach. Will continue to monitor.
[2019-09-02] MEDS: Eliquis 2.5mg tablet GT SCH ×2 (09:05→17:37)
[2019-09-02] MEDS: Phenytoin Susp 100mg/4ml GT SCH (09:05)
[2019-09-02] MEDS: levETIRAcetam 500mg/5ml Liquid GT SCH ×2 (09:06→20:55)
[2019-09-02] MEDS: Solu-MEDROL 40mg Inj IVP SCH ×2 (09:06→20:55)
[2019-09-02] MEDS: Metoprolol Tartrate 50mg tab GT SCH (09:06)
--- NOTE | 2019-09-02 09:30 | NUR ---
NURSE NOTES: Patient turned and repositioned, oral care given, Endotracheal suctioning done. Medications given as prescribed, no adverse reactions noted. Patient remains at RASS -2, easily awoken by name, holds eye contact for less than 5 seconds. Will continue to monitor.
[2019-09-02 10:21] LABS: HEMATOCRIT 32.8 % (42.0-52.0); HEMOGLOBIN 10.8 G/DL (14.2-18.0); MEAN CORPUSCULAR VOLUME 94 FL (80-99); PLATELET COUNT 281 K/UL (150-450); RED BLOOD COUNT 3.49 M/UL (4.70-6.10); RED CELL DISTRIBUTION WIDTH 12.8 % (11.6-14.8); WHITE BLOOD COUNT 8.7 K/UL (4.8-10.8)
--- NOTE | 2019-09-02 10:23 | Surgery Progress Note ---
Surgery Progress Note Subjective Additional Comments labs pending ill appearing vitals unchanged exam stable Objective Last 24 Hour Vital Signs Date Time Temp Pulse Resp B/P (MAP) Pulse Ox O2 Delivery O2 Flow Rate FiO2 09/02/19 10:00 85 24 114/56 (75) 100 09/02/19 09:30 88 25 114/61 (78) 100 09/02/19 09:06 95 120/64 09/02/19 09:05 88 24 100 09/02/19 09:00 88 27 119/60 (79) 100 09/02/19 08:00 98.7 89 27 115/58 (77) 100 09/02/19 08:00 Mechanical Ventilator 09/02/19 08:00 100 09/02/19 07:28 96 09/02/19 07:15 94 25 100 Mechanical Ventilator 100 94 25 100 09/02/19 07:00 99 20 129/61 (83) 100 09/02/19 06:30 101 20 09/02/19 06:30 99 20 124/64 (84) 100 09/02/19 06:00 34 Non-Rebreather 100 09/02/19 06:00 99.8 103 33 141/65 (90) 99 09/02/19 05:38 34 100 09/02/19 05:00 105 24 137/64 (88) 95 09/02/19 05:00 27 Mechanical Ventilator 100 09/02/19 04:00 100.0 102 25 122/66 (84) 99 09/02/19 04:00 103 09/02/19 04:00 Mechanical Ventilator 09/02/19 04:00 25 Mechanical Ventilator 100 09/02/19 04:00 25 Mechanical Ventilator 100 09/02/19 04:00 100 09/02/19 03:40 104 23 100 09/02/19 03:00 100 09/02/19 03:00 105 21 136/70 (92) 96 09/02/19 03:00 23 Mechanical Ventilator 100 09/02/19 02:00 23 Mechanical Ventilator 100 09/02/19 02:00 104 22 143/77 (99) 95 09/02/19 01:00 22 Mechanical Ventilator 100 09/02/19 01:00 104 22 127/79 (95) 97 09/02/19 00:50 102 23 97 Mechanical Ventilator 100 106 23 100 09/02/19 00:30 104 22 130/66 (87) 09/02/19 00:00 97.8 103 24 138/69 (92) 09/02/19 00:00 87 09/02/19 00:00 22 Mechanical Ventilator 100 09/02/19 00:00 Mechanical Ventilator 09/01/19 23:30 102 23 155/102 (119) 97 09/01/19 23:00 101 25 169/84 (112) 91 09/01/19 23:00 23 Mechanical Ventilator 100 09/01/19 23:00 100 09/01/19 23:00 103 25 100 09/01/19 22:30 79 25 147/95 (112) 92 09/01/19 22:00 24 Mechanical Ventilator 100 09/01/19 22:00 82 25 133/57 (82) 97 09/01/19 21:30 82 24 129/58 (81) 97 09/01/19 21:00 81 27 136/67 (90) 99 09/01/19 21:00 24 Mechanical Ventilator 100 09/01/19 20:53 81 136/84 09/01/19 20:30 83 27 136/64 (88) 98 09/01/19 20:08 83 27 98 Mechanical Ventilator 80 85 29 80 09/01/19 20:00 97.4 79 25 121/62 (81) 99 09/01/19 20:00 Mechanical Ventilator 09/01/19 20:00 24 Mechanical Ventilator 60 09/01/19 20:00 80 09/01/19 20:00 80 09/01/19 19:30 81 25 119/56 (77) 98 09/01/19 19:00 25 Mechanical Ventilator 80 09/01/19 18:30 83 25 118/76 (90) 97 09/01/19 18:00 25 Mechanical Ventilator 80 09/01/19 18:00 87 23 126/70 (88) 97 09/01/19 17:30 87 25 127/68 (87) 99 09/01/19 17:00 87 25 134/70 (91) 99 09/01/19 17:00 25 Mechanical Ventilator 80 09/01/19 16:40 87 25 80 09/01/19 16:30 86 26 138/70 (92) 99 09/01/19 16:00 99.1 86 24 138/69 (92) 98 09/01/19 16:00 25 Mechanical Ventilator 80 09/01/19 16:00 80 09/01/19 16:00 Mechanical Ventilator 09/01/19 16:00 87 09/01/19 15:30 86 24 134/73 (93) 96 09/01/19 15:00 86 25 144/70 (94) 98 09/01/19 14:56 35 Mechanical Ventilator 80 09/01/19 14:50 25 Mechanical Ventilator 80 09/01/19 14:30 87 26 128/70 (89) 98 09/01/19 14:00 90 27 132/73 (92) 98 09/01/19 14:00 25 Mechanical Ventilator 80 09/01/19 13:30 93 28 132/81 (98) 98 09/01/19 13:11 88 25 97 Mechanical Ventilator 80 94 29 100 09/01/19 13:00 89 24 171/133 (146) 97 09/01/19 13:00 25 Mechanical Ventilator 80 09/01/19 12:30 99.6 93 24 133/80 (97) 97 09/01/19 12:00 93 24 133/80 (97) 97 09/01/19 12:00 25 Mechanical Ventilator 80 09/01/19 12:00 94 09/01/19 12:00 80 09/01/19 12:00 Mechanical Ventilator 09/01/19 11:30 102 24 145/73 (97) 96 09/01/19 11:15 100.6 09/01/19 11:15 104 23 80 09/01/19 11:00 25 Mechanical Ventilator 80 09/01/19 11:00 105 23 144/74 (97) 95 09/01/19 10:30 112 24 148/81 (103) 93 I&O Intake and Output 09/01/19 09/02/19 19:00 07:00 Intake Total 1400 ml 927 ml Output Total 690 ml 700 ml Balance 710 ml 227 ml Free Water 50 ml 100 ml IV Total 750 ml 227 ml Tube Feeding 600 ml 600 ml Output Urine Total 690 ml 700 ml # Bowel Movements 2 Dressing: other Wound: other Drains: other Cardiovascular: RSR Respiratory: decreased breath sounds Abdomen: soft, non-tender, present bowel sounds Extremities: no tenderness, no cyanosis Laboratory Tests Test 09/02/19 04:20 09/02/19 05:51 09/02/19 06:25 Sodium Level 143 MMOL/L (136-145) Potassium Level 5.6 MMOL/L (3.5-5.1) H Chloride Level 106 MMOL/L (98-107) Carbon Dioxide Level 33 MMOL/L (21-32) H Anion Gap 4 mmol/L (5-15) L Blood Urea Nitrogen 23 mg/dL (7-18) H Creatinine 0.7 MG/DL (0.55-1.30) Estimat Glomerular Filtration Rate > 60 mL/min (>60) Glucose Level 200 MG/DL (74-106) H Calcium Level 8.0 MG/DL (8.5-10.1) L Arterial Blood pH 7.309 (7.350-7.450) Arterial Blood Partial Pressure CO2 70.1 mmHg (35.0-45.0) *H Arterial Blood Partial Pressure O2 153.1 mmHg (75.0-100.0) H Arterial Blood HCO3 34.4 mmol/L (22.0-26.0) H Arterial Blood Oxygen Saturation 98.6 % (95-100) Arterial Blood Base Excess 6.3 (-2-2) H Jag Test Positive White Blood Count Pending Red Blood Count Pending Hemoglobin Pending Hematocrit Pending Mean Corpuscular Volume Pending Mean Corpuscular Hemoglobin Pending Mean Corpuscular Hemoglobin Concent Pending Red Cell Distribution Width Pending Platelet Count Pending Mean Platelet Volume Pending Neutrophils (%) (Auto) Pending Lymphocytes (%) (Auto) Pending Monocytes (%) (Auto) Pending Eosinophils (%) (Auto) Pending Basophils (%) (Auto) Pending Plan Problems: (1) Decubitus skin ulcer Assessment & Plan: Patient presented on admission with Sacral DTPI. Base of wound is purple with maroon borders. Unstageable pressure injury Plantar L heel . Base of wound is necrotic with marginal erythema along borders. Non-blanching erythema R heel. Sacral DTPI now evolving since admission. Several opening within base of wound. No exudate noted. Open areas are moist and jason. Surrounding base of wound is purple with erythema along borders. Unstageable Pressure injury Plantar L heel. Base of wound is necrotic. Edges adherent to base of wound. Tx.Plan: Cleanse Sacral wound with Saline. Apply Therahoney. Apply Moisture Barrier Paste periwound. Cover with Optifoam drsg. Change every 3 days and prn. Apply Betadine to Plantar L heel. Cover with Optifoam drsg. Change every 3 days and prn. Apply Cavilon Skin Barrier R heel. Cover with Optifoam drsg. Change every 7 days and prn. Reposition at least every 2hours or as tolerated Off-load heels with pillow. Nutritional optimization will follow with recs air mattress once off isolation DAILY ESTIMATED NEEDS: Needs based on Critical care, Wounds/ 53kg abw 22-28 kcals/kg 5669-6476 total kcals 1.25-2 g protein/kg 66-106 g total protein 25-30 mL/kg 7302-2785 total fluid mLs NUTRITION DIAGNOSIS: * Swallowing difficulty R/T dysphagia as evidenced by PEG dep, s/p intubation, on GT feeding. * Increased kcal/prot needs R/T wound healing as evidenced by pt admitted w/ evolving DTPI sacral wound and unstageable lt heel wound. CURRENT TF:Glucerna 1.2 @50ml/hr x22 hrs ENTERAL NUTRITION RECOMMENDATIONS: Glucerna 1.2 @ 50ml/hr x 22 hrs (hold 1 hr before and after Dilantin QD) to provide 1100ml, 1320kcal, 66g prot, 886ml free water * Maintain Glucerna 1.2 for carb control, BGs elevated. * Hold 1 hr before and after Dilantin med * HOB over 30 degrees/ without IVF, H20 flush of 150ml q 6 hrs FOR 24 HRS TF RUN WITHOUT DILANTIN (Dilantin currently held) : okay to keep the same TF rate of Glucerna 1.2 @ 50ml/hr x 24 hrs to provide 1200ml, 1440kcal, 72g prot 966ml free water -> will still meet 100% est kcal/prot needs ADDITIONAL RECOMMENDATIONS: * Per SNF record, ht is 60", wt is 149lbs (08/14/19) Rec calibrated bedscale wt * Rec NISS w/ TF: BGs elevated, now on Solumedrol * Wound healing: add Vit C 500mg QD + Giancarlo 1pkt BID via PEG * Monitor lytes, replete as needed . (2) Multi-infarct dementia (3) Uncontrolled seizures (4) History of CVA (cerebrovascular accident) (5) Acute encephalopathy (6) Aspiration pneumonia Assessment & Plan: Interval worsening of aeration with increasing interstitial and patchy bilateral airspace disease. Findings may be on the basis of worsening CHF/pulmonary edema although multifocal pneumonia must also be considered. Endotracheal tube injection is a central line remain in place. 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 (7) Respiratory failure (8) Suspected 2019 novel coronavirus infection Assessment & Plan: testing (9) Abdominal distension Assessment & Plan: pending KUB +BM ulikely obstruction will monitor Sundeep Benavidez Sep 02, 2019 10:23
[2019-09-02] MEDS: fentaNYL Citrate 2500mcg in NS 250ml IV SCH (10:48)
[2019-09-02 13:17] LABS: APPEARANCE,URINE CLEAR; BILIRUBIN, URINE NEGATIVE (NEGATIVE); GLUCOSE, URINE (UA) NEGATIVE (NEGATIVE); KETONES,URINE 1+ (NEGATIVE); LEUKOCYTE ESTERASE ,URINE NEGATIVE (NEGATIVE); NITRITE,URINE NEGATIVE (NEGATIVE); PH,URINE 6 (4.5-8.0); PROTEIN,URINE 3+ (NEGATIVE); UROBILINOGEN,URINE 4 MG/DL (0.0-1.0)
[2019-09-02 13:36] LABS: COLOR,URINE YELLOW
--- NOTE | 2019-09-02 14:21 | Cardiac Electrophysiology PN ---
Assessment/Plan Assessment/Plan 1. Atrial flutter with rapid ventricular response. In SR with first degree AVB On Eliquis 2.5 mg bid, metoprolol 50 mg bid. 2. Accelerated hypertension with blood pressure of 200. Continue metoprolol 50 mg b.i.d. and p.r.n. IV hydralazine. 3. 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 4. Respiratory failure due to COVID-19 pneumonia. On the Vent on 80% fio2 Completed hydroxychloroquine. EKG QT 440 . 5. Sepsis on Solu-Medrol and Meropenem per ID 6. History of CVA. 7. Multi-infarct dementia. 8. History of seizures. 9. Abdominal distension DW RN Subjective Subjective Intubated in ICU on the vent 80% Fio2 . Covid is positive. In SR off pressors. No further atrial fib. PEG feeding ongoing. Full code Objective Last 24 Hour Vital Signs Date Time Temp Pulse Resp B/P (MAP) Pulse Ox O2 Delivery O2 Flow Rate FiO2 09/02/19 13:06 81 29 100 Mechanical Ventilator 80 81 29 80 09/02/19 13:00 98.6 82 22 109/62 (78) 98 09/02/19 12:00 Mechanical Ventilator 09/02/19 12:00 100 09/02/19 12:00 79 26 107/55 (72) 100 09/02/19 11:58 96 09/02/19 11:30 79 27 111/56 (74) 100 09/02/19 11:05 79 24 100 09/02/19 11:00 29 Mechanical Ventilator 50 09/02/19 11:00 79 29 123/55 (77) 100 09/02/19 10:48 24 Endotracheal Tube 45.0 100 09/02/19 10:00 85 24 114/56 (75) 100 09/02/19 09:30 88 25 114/61 (78) 100 09/02/19 09:06 95 120/64 09/02/19 09:05 88 24 100 09/02/19 09:00 88 27 119/60 (79) 100 09/02/19 08:00 98.7 89 27 115/58 (77) 100 09/02/19 08:00 Mechanical Ventilator 09/02/19 08:00 100 09/02/19 07:28 96 09/02/19 07:15 94 25 100 Mechanical Ventilator 100 94 25 100 09/02/19 07:00 99 20 129/61 (83) 100 09/02/19 06:30 101 20 09/02/19 06:30 99 20 124/64 (84) 100 09/02/19 06:00 34 Non-Rebreather 100 09/02/19 06:00 99.8 103 33 141/65 (90) 99 09/02/19 05:38 34 100 09/02/19 05:00 105 24 137/64 (88) 95 09/02/19 05:00 27 Mechanical Ventilator 100 09/02/19 04:00 100.0 102 25 122/66 (84) 99 09/02/19 04:00 103 09/02/19 04:00 Mechanical Ventilator 09/02/19 04:00 25 Mechanical Ventilator 100 09/02/19 04:00 25 Mechanical Ventilator 100 09/02/19 04:00 100 09/02/19 03:40 104 23 100 09/02/19 03:00 100 09/02/19 03:00 105 21 136/70 (92) 96 09/02/19 03:00 23 Mechanical Ventilator 100 09/02/19 02:00 23 Mechanical Ventilator 100 09/02/19 02:00 104 22 143/77 (99) 95 09/02/19 01:00 22 Mechanical Ventilator 100 09/02/19 01:00 104 22 127/79 (95) 97 09/02/19 00:50 102 23 97 Mechanical Ventilator 100 106 23 100 09/02/19 00:30 104 22 130/66 (87) 09/02/19 00:00 97.8 103 24 138/69 (92) 09/02/19 00:00 87 09/02/19 00:00 22 Mechanical Ventilator 100 09/02/19 00:00 Mechanical Ventilator 09/01/19 23:30 102 23 155/102 (119) 97 09/01/19 23:00 101 25 169/84 (112) 91 09/01/19 23:00 23 Mechanical Ventilator 100 09/01/19 23:00 100 09/01/19 23:00 103 25 100 09/01/19 22:30 79 25 147/95 (112) 92 09/01/19 22:00 24 Mechanical Ventilator 100 09/01/19 22:00 82 25 133/57 (82) 97 4/19/20 21:30 82 24 129/58 (81) 97 4/20 21:00 81 27 136/67 (90) 99 420 21:00 24 Mechanical Ventilator 100 20 20:53 81 136/84 420 20:30 83 27 136/64 (88) 98 20 20:08 83 27 98 Mechanical Ventilator 80 85 29 80 09/01/19 20:00 97.4 79 25 121/62 (81) 99 09/01/19 20:00 Mechanical Ventilator 09/01/19 20:00 24 Mechanical Ventilator 60 09/01/19 20:00 80 20 20:00 80 09/01/19 19:30 81 25 119/56 (77) 98 09/01/19 19:00 25 Mechanical Ventilator 80 09/01/19 18:30 83 25 118/76 (90) 97 09/01/19 18:00 25 Mechanical Ventilator 80 09/01/19 18:00 87 23 126/70 (88) 97 09/01/19 17:30 87 25 127/68 (87) 99 09/01/19 17:00 87 25 134/70 (91) 99 20 17:00 25 Mechanical Ventilator 80 09/01/19 16:40 87 25 80 09/01/19 16:30 86 26 138/70 (92) 99 09/01/19 16:00 99.1 86 24 138/69 (92) 98 09/01/19 16:00 25 Mechanical Ventilator 80 09/01/19 16:00 80 09/01/19 16:00 Mechanical Ventilator 09/01/19 16:00 87 09/01/19 15:30 86 24 134/73 (93) 96 09/01/19 15:00 86 25 144/70 (94) 98 09/01/19 14:56 35 Mechanical Ventilator 80 09/01/19 14:50 25 Mechanical Ventilator 80 09/01/19 14:30 87 26 128/70 (89) 98 Intake and Output 20 09/02/19 19:00 07:00 Intake Total 1400 ml 927 ml Output Total 690 ml 700 ml Balance 710 ml 227 ml Free Water 50 ml 100 ml IV Total 750 ml 227 ml Tube Feeding 600 ml 600 ml Output Urine Total 690 ml 700 ml # Bowel Movements 2 Laboratory Tests Test 4/20/20 04:20 09/02/19 05:51 09/02/19 06:25 09/02/19 10:45 Sodium Level 143 MMOL/L (136-145) Potassium Level 5.6 MMOL/L (3.5-5.1) H Chloride Level 106 MMOL/L (98-107) Carbon Dioxide Level 33 MMOL/L (21-32) H Anion Gap 4 mmol/L (5-15) L Blood Urea Nitrogen 23 mg/dL (7-18) H Creatinine 0.7 MG/DL (0.55-1.30) Estimat Glomerular Filtration Rate > 60 mL/min (>60) Glucose Level 200 MG/DL (74-106) H Calcium Level 8.0 MG/DL (8.5-10.1) L Arterial Blood pH 7.309 (7.350-7.450) Arterial Blood Partial Pressure CO2 70.1 mmHg (35.0-45.0) *H Arterial Blood Partial Pressure O2 153.1 mmHg (75.0-100.0) H Arterial Blood HCO3 34.4 mmol/L (22.0-26.0) H Arterial Blood Oxygen Saturation 98.6 % (95-100) Arterial Blood Base Excess 6.3 (-2-2) H Jag Test Positive White Blood Count 8.7 K/UL (4.8-10.8) Red Blood Count 3.49 M/UL (4.70-6.10) L Hemoglobin 10.8 G/DL (14.2-18.0) L Hematocrit 32.8 % (42.0-52.0) L Mean Corpuscular Volume 94 FL (80-99) Mean Corpuscular Hemoglobin 31.0 PG (27.0-31.0) Mean Corpuscular Hemoglobin Concent 33.0 G/DL (32.0-36.0) Red Cell Distribution Width 12.8 % (11.6-14.8) Platelet Count 281 K/UL (150-450) Mean Platelet Volume 6.7 FL (6.5-10.1) Neutrophils (%) (Auto) % (45.0-75.0) Lymphocytes (%) (Auto) % (20.0-45.0) Monocytes (%) (Auto) % (1.0-10.0) Eosinophils (%) (Auto) % (0.0-3.0) Basophils (%) (Auto) % (0.0-2.0) Differential Total Cells Counted 100 Neutrophils % (Manual) 88 % (45-75) H Lymphocytes % (Manual) 7 % (20-45) L Monocytes % (Manual) 4 % (1-10) Eosinophils % (Manual) 0 % (0-3) Basophils % (Manual) 0 % (0-2) Band Neutrophils 1 % (0-8) Platelet Estimate Adequate Platelet Morphology Normal Hypochromasia 1+ Anisocytosis 1+ Urine Color Yellow Urine Appearance Clear Urine pH 6 (4.5-8.0) Urine Specific [place] 1.020 (1.005-1.035) Urine Protein 3+ (NEGATIVE) H Urine Glucose (UA) Negative (NEGATIVE) Urine Ketones 1+ (NEGATIVE) H Urine Blood 5+ (NEGATIVE) H Urine Nitrite Negative (NEGATIVE) Urine Bilirubin Negative (NEGATIVE) Urine Urobilinogen 4 MG/DL (0.0-1.0) H Urine Leukocyte Esterase Negative (NEGATIVE) Urine RBC 5-10 /HPF (0 - 0) H Urine WBC 0-2 /HPF (0 - 0) Urine Squamous Epithelial Cells Occasional /LPF Urine Amorphous Sediment Few /LPF (NONE) H Urine Bacteria Occasional /HPF (NONE) Objective HEAD AND NECK: No JVD. Orally intubated. LUNGS: Coarse rhonchi. CARDIOVASCULAR: Irregular S1 and S2 with no gallop or murmur. ABDOMEN: Soft.PEG intact EXTREMITIES: 1 plus pitting edema. Paul Robles MD Sep 02, 2019 14:21
--- NOTE | 2019-09-02 14:28 | General Progress Note ---
Assessment/Plan Assessment/Plan: 83YO M with HTN, HLD, COPD, CAD, Seizure disorder presenting with cough and shortness of breath. In the ED, patient was found to be tachycardic (130's) and tachypnic (33) and febrile at 101.2. #Hypoxemic acute respiratory failure #Septic shock #Covid19 positive #transaminitis - likely 2/2 to above, downtrending/stable #Fevers - improved #MRSA pneumonia #Drug reaction/Red Man syndrome - resolved -Appreciate ICU care -Pulm/CCM eval appreciated -Cont. contact plus droplet isolation. -Continuous weed cutter. -Continue vent management per the ICU team, daily SBT -s/p Plaquenil -08/25 CXR reviewed, worsening b/l infiltrates -08/27 CXR w/Interval worsening of aeration with increasing interstitial and patchy bilateral airspace disease -08/26 BCx NGTD -08/26 SCx - MRSA -ID: cont. linezolid, meropenem and fluconazole -ID and Pulm following, recs appreciated #Hyperkalemia #Hypokalemia - resolved -ctm, replace PRN -remains elevated -Kayexalate x 1 -repeat BMP in AM #Abdominal distension - improved, likely Ileus -KUB reviewed -d/w general sx, likely ileus #History of Seizure disorder: -cont Dilantin and Keppra -Neurology following #Accelerated HTN - resolved #HLD #CAD #Eliquis use #Atrial flutter with rapid ventricular response #elevated troponins likely 2/2 demand ischemia, down trending -MTP 50 BID, hydralazine PRN -Eliquis 2.5 -Cardio following, recs appreciated #Sacral Decubitus Ulcer -general sx/wound care following -recs appreciated prognosis guarded I spent 72 minutes on this patient's case, and 45 mins was dedicated to critical care. Critical Care Services performed include: Telemetry Review Hemodynamic measurement interpretation Laboratory data review and interpretation Radiology image review and interpretation Ventilator setting review, management, and adjustment Discussion of patient's care with ICU team, ICU Nursing staff and/or consulting services Subjective Allergies: Coded Allergies: No Known Allergies (Unverified , 02/29/16) Subjective Follow up for acute hypoxic resp failure, septic shock, COVID-19 positive. Pt remains intubated. Objective Last 24 Hour Vital Signs Date Time Temp Pulse Resp B/P (MAP) Pulse Ox O2 Delivery O2 Flow Rate FiO2 09/02/19 13:06 81 29 100 Mechanical Ventilator 80 81 29 80 09/02/19 13:00 98.6 82 22 109/62 (78) 98 09/02/19 12:00 Mechanical Ventilator 09/02/19 12:00 100 09/02/19 12:00 79 26 107/55 (72) 100 09/02/19 11:58 96 09/02/19 11:30 79 27 111/56 (74) 100 09/02/19 11:05 79 24 100 09/02/19 11:00 29 Mechanical Ventilator 50 09/02/19 11:00 79 29 123/55 (77) 100 09/02/19 10:48 24 Endotracheal Tube 45.0 100 09/02/19 10:00 85 24 114/56 (75) 100 09/02/19 09:30 88 25 114/61 (78) 100 09/02/19 09:06 95 120/64 09/02/19 09:05 88 24 100 09/02/19 09:00 88 27 119/60 (79) 100 09/02/19 08:00 98.7 89 27 115/58 (77) 100 09/02/19 08:00 Mechanical Ventilator 09/02/19 08:00 100 09/02/19 07:28 96 09/02/19 07:15 94 25 100 Mechanical Ventilator 100 94 25 100 09/02/19 07:00 99 20 129/61 (83) 100 09/02/19 06:30 101 20 09/02/19 06:30 99 20 124/64 (84) 100 09/02/19 06:00 34 Non-Rebreather 100 09/02/19 06:00 99.8 103 33 141/65 (90) 99 09/02/19 05:38 34 100 09/02/19 05:00 105 24 137/64 (88) 95 09/02/19 05:00 27 Mechanical Ventilator 100 09/02/19 04:00 100.0 102 25 122/66 (84) 99 09/02/19 04:00 103 09/02/19 04:00 Mechanical Ventilator 09/02/19 04:00 25 Mechanical Ventilator 100 09/02/19 04:00 25 Mechanical Ventilator 100 09/02/19 04:00 100 09/02/19 03:40 104 23 100 09/02/19 03:00 100 09/02/19 03:00 105 21 136/70 (92) 96 09/02/19 03:00 23 Mechanical Ventilator 100 09/02/19 02:00 23 Mechanical Ventilator 100 09/02/19 02:00 104 22 143/77 (99) 95 09/02/19 01:00 22 Mechanical Ventilator 100 09/02/19 01:00 104 22 127/79 (95) 97 09/02/19 00:50 102 23 97 Mechanical Ventilator 100 106 23 100 09/02/19 00:30 104 22 130/66 (87) 09/02/19 00:00 97.8 103 24 138/69 (92) 09/02/19 00:00 87 09/02/19 00:00 22 Mechanical Ventilator 100 09/02/19 00:00 Mechanical Ventilator 09/01/19 23:30 102 23 155/102 (119) 97 09/01/19 23:00 101 25 169/84 (112) 91 09/01/19 23:00 23 Mechanical Ventilator 100 09/01/19 23:00 100 09/01/19 23:00 103 25 100 09/01/19 22:30 79 25 147/95 (112) 92 09/01/19 22:00 24 Mechanical Ventilator 100 09/01/19 22:00 82 25 133/57 (82) 97 09/01/19 21:30 82 24 129/58 (81) 97 09/01/19 21:00 81 27 136/67 (90) 99 09/01/19 21:00 24 Mechanical Ventilator 100 09/01/19 20:53 81 136/84 09/01/19 20:30 83 27 136/64 (88) 98 09/01/19 20:08 83 27 98 Mechanical Ventilator 80 85 29 80 09/01/19 20:00 97.4 79 25 121/62 (81) 99 09/01/19 20:00 Mechanical Ventilator 09/01/19 20:00 24 Mechanical Ventilator 60 09/01/19 20:00 80 09/01/19 20:00 80 09/01/19 19:30 81 25 119/56 (77) 98 09/01/19 19:00 25 Mechanical Ventilator 80 09/01/19 18:30 83 25 118/76 (90) 97 09/01/19 18:00 25 Mechanical Ventilator 80 09/01/19 18:00 87 23 126/70 (88) 97 09/01/19 17:30 87 25 127/68 (87) 99 09/01/19 17:00 87 25 134/70 (91) 99 09/01/19 17:00 25 Mechanical Ventilator 80 09/01/19 16:40 87 25 80 09/01/19 16:30 86 26 138/70 (92) 99 09/01/19 16:00 99.1 86 24 138/69 (92) 98 09/01/19 16:00 25 Mechanical Ventilator 80 09/01/19 16:00 80 09/01/19 16:00 Mechanical Ventilator 09/01/19 16:00 87 09/01/19 15:30 86 24 134/73 (93) 96 09/01/19 15:00 86 25 144/70 (94) 98 09/01/19 14:56 35 Mechanical Ventilator 80 09/01/19 14:50 25 Mechanical Ventilator 80 09/01/19 14:30 87 26 128/70 (89) 98 Intake and Output 09/01/19 09/02/19 19:00 07:00 Intake Total 1400 ml 927 ml Output Total 690 ml 700 ml Balance 710 ml 227 ml Free Water 50 ml 100 ml IV Total 750 ml 227 ml Tube Feeding 600 ml 600 ml Output Urine Total 690 ml 700 ml # Bowel Movements 2 Laboratory Tests 09/02/19 04:20: Sodium Level 143, Potassium Level 5.6H, Chloride Level 106, Carbon Dioxide Level 33H, Anion Gap 4L, Blood Urea Nitrogen 23H, Creatinine 0.7, Estimat Glomerular Filtration Rate > 60, Glucose Level 200H, Calcium Level 8.0L 09/02/19 05:51: Arterial Blood pH 7.309L, Arterial Blood Partial Pressure CO2 70.1*H, Arterial Blood Partial Pressure O2 153.1H, Arterial Blood HCO3 34.4H, Arterial Blood Oxygen Saturation 98.6, Arterial Blood Base Excess 6.3H, Jag Test Positive 09/02/19 06:25: White Blood Count 8.7, Red Blood Count 3.49L, Hemoglobin 10.8L, Hematocrit 32.8L , Mean Corpuscular Volume 94, Mean Corpuscular Hemoglobin 31.0, Mean Corpuscular Hemoglobin Concent 33.0, Red Cell Distribution Width 12.8, Platelet Count 281, Mean Platelet Volume 6.7, Neutrophils (%) (Auto) , Lymphocytes (%) ( Auto) , Monocytes (%) (Auto) , Eosinophils (%) (Auto) , Basophils (%) (Auto) , Differential Total Cells Counted 100, Neutrophils % (Manual) 88H, Lymphocytes % (Manual) 7L, Monocytes % (Manual) 4, Eosinophils % (Manual) 0, Basophils % ( Manual) 0, Band Neutrophils 1, Platelet Estimate Adequate, Platelet Morphology Normal, Hypochromasia 1+, Anisocytosis 1+ 09/02/19 10:45: Urine Color Yellow, Urine Appearance Clear, Urine pH 6, Urine Specific [place] 1.020, Urine Protein 3+H, Urine Glucose (UA) Negative, Urine Ketones 1+H, Urine Blood 5+H, Urine Nitrite Negative, Urine Bilirubin Negative, Urine Urobilinogen 4H, Urine Leukocyte Esterase Negative, Urine RBC 5-10H, Urine WBC 0-2, Urine Squamous Epithelial Cells Occasional, Urine Amorphous Sediment FewH, Urine Bacteria Occasional Height (Feet): 5 Height (Inches): 8.00 Weight (Pounds): 168 Objective General: Intubated, appears comfortable HEENT: NCAT CV: RRR on tele monitor Pulm: b/l rise in lungs Ext: heels wrapped in bandages Liliana Leal M.D. Sep 02, 2019 14:28
[2019-09-02] MEDS ORDERED: Sodium Polystyrene Sulfonate 15gm Powder ORAL SCH (14:30)
--- NOTE | 2019-09-02 16:47 | NUR ---
NURSE NOTES: Dr. Robles made aware of new onset of A. Fib, orders received.
--- NOTE | 2019-09-02 16:48 | NUR ---
NURSE NOTES: Patient seen and assessed by Dr. Nash.
--- NOTE | 2019-09-02 16:52 | Pulmonolgy Critical Care Note ---
Critical Care - Asmt/Plan Problems: (1) Respiratory failure (2) Suspected 2019 novel coronavirus infection (3) History of CVA (cerebrovascular accident) (4) Acute encephalopathy (5) Multi-infarct dementia (6) Uncontrolled seizures (7) Atrial fibrillation and flutter Assessment/Plan: CXR Continue ventilatory support/hold off on weaning ---> return to AC, inc TV 450, inc PEEP to 10, wean O2 Monitor gas exchange Proning 12hr on/off MDI in line with Vent Continue SM 20 IV BID (D9) and taper Completed 5 days of Plaquenil Zyvox/Candis/Flucon per ID Daily CRP and ferritin D/W pharmacy RE: Tociluzumab - per pharmacist on national shortage and cannot get, will continue to follow up Remdesivir limited to trial, cannot get under compassionate care Monitor volumes and renal function ICU sedation: Fent gtt for RASS -2 with PRN Versed F/U neuro recs, continue AED's Monitor LFT's TF's DVT Px: Eliquis FC, continue to discuss GOC Prophylaxis: other - Eliquis Disposition: keep in ICU Time Spent (Minutes): 40 Notes Reviewed: actuarial clerk, cardio, ID, neuro Discussed with: nurses, consultants Critical Care - Objective Last 24 Hour Vital Signs Date Time Temp Pulse Resp B/P (MAP) Pulse Ox O2 Delivery O2 Flow Rate FiO2 09/02/19 15:45 110 09/02/19 15:09 112 25 100 09/02/19 15:00 110 27 143/62 (89) 92 09/02/19 14:00 104 29 134/95 (108) 92 09/02/19 13:06 81 29 100 Mechanical Ventilator 80 81 29 80 09/02/19 13:00 98.6 82 22 109/62 (78) 98 09/02/19 12:00 Mechanical Ventilator 09/02/19 12:00 100 09/02/19 12:00 79 26 107/55 (72) 100 09/02/19 11:58 96 09/02/19 11:30 79 27 111/56 (74) 100 09/02/19 11:05 79 24 100 09/02/19 11:00 29 Mechanical Ventilator 50 09/02/19 11:00 79 29 123/55 (77) 100 09/02/19 10:48 24 Endotracheal Tube 45.0 100 09/02/19 10:00 85 24 114/56 (75) 100 09/02/19 09:30 88 25 114/61 (78) 100 09/02/19 09:06 95 120/64 09/02/19 09:05 88 24 100 09/02/19 09:00 88 27 119/60 (79) 100 09/02/19 08:00 98.7 89 27 115/58 (77) 100 09/02/19 08:00 Mechanical Ventilator 09/02/19 08:00 100 09/02/19 07:28 96 09/02/19 07:15 94 25 100 Mechanical Ventilator 100 94 25 100 09/02/19 07:00 99 20 129/61 (83) 100 09/02/19 06:30 101 20 09/02/19 06:30 99 20 124/64 (84) 100 09/02/19 06:00 34 Non-Rebreather 100 09/02/19 06:00 99.8 103 33 141/65 (90) 99 09/02/19 05:38 34 100 09/02/19 05:00 105 24 137/64 (88) 95 09/02/19 05:00 27 Mechanical Ventilator 100 09/02/19 04:00 100.0 102 25 122/66 (84) 99 09/02/19 04:00 103 09/02/19 04:00 Mechanical Ventilator 09/02/19 04:00 25 Mechanical Ventilator 100 09/02/19 04:00 25 Mechanical Ventilator 100 09/02/19 04:00 100 09/02/19 03:40 104 23 100 09/02/19 03:00 100 09/02/19 03:00 105 21 136/70 (92) 96 09/02/19 03:00 23 Mechanical Ventilator 100 09/02/19 02:00 23 Mechanical Ventilator 100 09/02/19 02:00 104 22 143/77 (99) 95 09/02/19 01:00 22 Mechanical Ventilator 100 09/02/19 01:00 104 22 127/79 (95) 97 09/02/19 00:50 102 23 97 Mechanical Ventilator 100 106 23 100 09/02/19 00:30 104 22 130/66 (87) 09/02/19 00:00 97.8 103 24 138/69 (92) 09/02/19 00:00 87 09/02/19 00:00 22 Mechanical Ventilator 100 09/02/19 00:00 Mechanical Ventilator 09/01/19 23:30 102 23 155/102 (119) 97 09/01/19 23:00 101 25 169/84 (112) 91 09/01/19 23:00 23 Mechanical Ventilator 100 09/01/19 23:00 100 09/01/19 23:00 103 25 100 09/01/19 22:30 79 25 147/95 (112) 92 09/01/19 22:00 24 Mechanical Ventilator 100 09/01/19 22:00 82 25 133/57 (82) 97 09/01/19 21:30 82 24 129/58 (81) 97 09/01/19 21:00 81 27 136/67 (90) 99 09/01/19 21:00 24 Mechanical Ventilator 100 09/01/19 20:53 81 136/84 09/01/19 20:30 83 27 136/64 (88) 98 09/01/19 20:08 83 27 98 Mechanical Ventilator 80 85 29 80 09/01/19 20:00 97.4 79 25 121/62 (81) 99 09/01/19 20:00 Mechanical Ventilator 09/01/19 20:00 24 Mechanical Ventilator 60 09/01/19 20:00 80 09/01/19 20:00 80 09/01/19 19:30 81 25 119/56 (77) 98 09/01/19 19:00 25 Mechanical Ventilator 80 09/01/19 18:30 83 25 118/76 (90) 97 09/01/19 18:00 25 Mechanical Ventilator 80 09/01/19 18:00 87 23 126/70 (88) 97 09/01/19 17:30 87 25 127/68 (87) 99 09/01/19 17:00 87 25 134/70 (91) 99 09/01/19 17:00 25 Mechanical Ventilator 80 Status: sedated - intubated Condition: critical HEENT: other - ETT OGT Lungs: other - Vent Heart: HR/BP unstable, irregular Blood Sugars: BS controlled Critical Care - Subjective ROS Limited/Unobtainable: Yes ICU Day: 12 Intubation Day: 13 Interval Events: AFcRVR Inc O2 needs 7.3/70 Not clarissa SIMV Condition: critical IV Access: peripheral EKG Rhythm: Atrial Fibrillation FI02: 100 Vent Support Breath Rate: 18 Vent Support Mode: AC Vent Tidal Volume: 400 Sputum Amount: Small PEEP: 7.0 PIP: 36 Secretions: small Fluids: SLIV Drips: Fent Tube Feeding Amount: 50 I&O: Intake and Output 09/01/19 09/02/19 19:00 07:00 Intake Total 1400 ml 927 ml Output Total 690 ml 700 ml Balance 710 ml 227 ml Free Water 50 ml 100 ml IV Total 750 ml 227 ml Tube Feeding 600 ml 600 ml Output Urine Total 690 ml 700 ml # Bowel Movements 2 Subjective: REYMUNDO ET-Tube: 7.5 ET Position: 25 Labs: Laboratory Tests Test 09/02/19 04:20 09/02/19 05:51 09/02/19 06:25 09/02/19 10:45 Sodium Level 143 MMOL/L (136-145) Potassium Level 5.6 MMOL/L (3.5-5.1) H Chloride Level 106 MMOL/L (98-107) Carbon Dioxide Level 33 MMOL/L (21-32) H Anion Gap 4 mmol/L (5-15) L Blood Urea Nitrogen 23 mg/dL (7-18) H Creatinine 0.7 MG/DL (0.55-1.30) Estimat Glomerular Filtration Rate > 60 mL/min (>60) Glucose Level 200 MG/DL (74-106) H Calcium Level 8.0 MG/DL (8.5-10.1) L Arterial Blood pH 7.309 (7.350-7.450) Arterial Blood Partial Pressure CO2 70.1 mmHg (35.0-45.0) *H Arterial Blood Partial Pressure O2 153.1 mmHg (75.0-100.0) H Arterial Blood HCO3 34.4 mmol/L (22.0-26.0) H Arterial Blood Oxygen Saturation 98.6 % (95-100) Arterial Blood Base Excess 6.3 (-2-2) H Jag Test Positive White Blood Count 8.7 K/UL (4.8-10.8) Red Blood Count 3.49 M/UL (4.70-6.10) L Hemoglobin 10.8 G/DL (14.2-18.0) L Hematocrit 32.8 % (42.0-52.0) L Mean Corpuscular Volume 94 FL (80-99) Mean Corpuscular Hemoglobin 31.0 PG (27.0-31.0) Mean Corpuscular Hemoglobin Concent 33.0 G/DL (32.0-36.0) Red Cell Distribution Width 12.8 % (11.6-14.8) Platelet Count 281 K/UL (150-450) Mean Platelet Volume 6.7 FL (6.5-10.1) Neutrophils (%) (Auto) % (45.0-75.0) Lymphocytes (%) (Auto) % (20.0-45.0) Monocytes (%) (Auto) % (1.0-10.0) Eosinophils (%) (Auto) % (0.0-3.0) Basophils (%) (Auto) % (0.0-2.0) Differential Total Cells Counted 100 Neutrophils % (Manual) 88 % (45-75) H Lymphocytes % (Manual) 7 % (20-45) L Monocytes % (Manual) 4 % (1-10) Eosinophils % (Manual) 0 % (0-3) Basophils % (Manual) 0 % (0-2) Band Neutrophils 1 % (0-8) Platelet Estimate Adequate Platelet Morphology Normal Hypochromasia 1+ Anisocytosis 1+ Urine Color Yellow Urine Appearance Clear Urine pH 6 (4.5-8.0) Urine Specific [place] 1.020 (1.005-1.035) Urine Protein 3+ (NEGATIVE) H Urine Glucose (UA) Negative (NEGATIVE) Urine Ketones 1+ (NEGATIVE) H Urine Blood 5+ (NEGATIVE) H Urine Nitrite Negative (NEGATIVE) Urine Bilirubin Negative (NEGATIVE) Urine Urobilinogen 4 MG/DL (0.0-1.0) H Urine Leukocyte Esterase Negative (NEGATIVE) Urine RBC 5-10 /HPF (0 - 0) H Urine WBC 0-2 /HPF (0 - 0) Urine Squamous Epithelial Cells Occasional /LPF Urine Amorphous Sediment Few /LPF (NONE) H Urine Bacteria Occasional /HPF (NONE) David Nash MD Sep 02, 2019 16:52
--- NOTE | 2019-09-02 17:22 | NUR ---
CASE MANAGEMENT: REVIEW 09/02/19 SI: MRSA SPUTUM (+) . RESPIRATORY D/T COVID-19 . HX CVA . SEIZURE PRECAUTIONS 98.6 82 26 109/62 98% ON MECHANICAL VENTILATOR FiO2 80 H/H 10.8/32.8 K+ 5.6 BUN 23 BG 200 CA+ 8.0 ABG: pH 7.309 pCO2 70.1 pO2 153.1 HCO3 34.4 IS:IV IV MEROPENEM TID IV DIFLUCAN QD IV FENTANYL QD IV ZYVOX BID IV VERSED Q2HR/PRN IV FENTANYL CITRATE BID IV SOLU-MEDROL 20mg BID LOPRESSOR GT BID PROVENTIL INH Q6HR ATROVENT INH Q6HR KEPPRA GT BID ELIQUIS GT BID FLOMAX PO QHS TYLENOL GT Q6HR SVETLANA-HEX 2% TP DQ \: INTENSIVE CARE UNIT DCP: [facility] WHEN STABLE PLAN: CONT VENT SUPPORT- HOLD OFF ON WEANING PRONING Q12HR ON/OFF
--- NOTE | 2019-09-02 18:00 | NUR ---
NURSE NOTES: Bed bath given to patient, patient tolerated well, no signs of acute distress. Will continue to monitor.
--- NOTE | 2019-09-02 19:12 | NUR ---
HAND-OFF: Report given to Bozena PAULSON.
--- NOTE | 2019-09-02 19:30 | NUR ---
NURSE NOTES: received pt orally intubated on ac mode , sedated with Fentanyl drip at !70 mcg/hr infusing to RT IJ centrl line. Site with drsg dry and intact, Afib on the monitor, controlled rate. Bp stable afebrile,Tolerated fdg at this time HOB kept elevated. On aspiration precaution, Pt had 1lg soft stool cleaned up pt.2-3+ edema noted to extremities. pt has DTI with open wound sacral area and left heel unstageable covered with optifoam. Drsg was changed on the sacral area due to incontinent of stool.(tX applied per protocol). Prone procedure not done to the pt due to unstable condition. Dr Nash was aware.Swartz to gravity with moderate amt of jaclyn yellow urine. Monitor I and O. Monitor lytes. Will continue to monitor.
[2019-09-02] MEDS: Dyna-Hex 2% Top Sol 2oz TOPIC SCH (20:16)
[2019-09-02] MEDS: Metoprolol Tartrate 100mg tab GT SCH (20:56)
[2019-09-02] MEDS: Tamsulosin 0.4mg cap ORAL SCH (20:56)
--- NOTE | 2019-09-02 21:10 | Infectious Diseases Prog Note ---
Assessment/Plan Assessment/Plan ASSESSMENT AND PLAN: 1. covid-19 virus infection, pna, sepsis, fevers, leukocytosis, vent, respiratory failure MRSA pneumonia rash - ? vancomycin, ? zosyn - abx held - rash improved ? bowel obstruction, ? ileus fungemia risk - zyvox, meropenem and diflucan - f/u on labs and chest x-ray, bc/uc - negative, sc - mrsa - supportive care, ivf, vent - d/w RN - critical - surgery f//u - icu supportive care 2. Respiratory failure, on vent. 3. History of hyperlipidemia. 4. History of hypertension. 5. Atherosclerotic heart disease. 6. CAD. 7. COPD. 8. Dementia. 9. Nonverbal at baseline. 10. History of seizures. 11. No known drug allergies. 12. Social history negative. 13. Family history noncontributory. 14. MAR was noted. 15. Case discussed with RN. 16. Continue treatment per primary consultants. Subjective Constitutional: Reports: fever, other - on vent HEENT: Reports: congestion Respiratory: Reports: shortness of breath Cardiovascular: Reports: other - no pressors Gastrointestinal/Abdominal: Denies: nausea, vomiting, diarrhea Genitourinary: Reports: other - + verduzco Neurologic: Reports: other - poorly responsive Psychiatric: Reports: other - NA Skin: Denies: rash Hematologic: Denies: bleeding Musculoskeletal: Reports: other - NA Allergies: Coded Allergies: No Known Allergies (Unverified , 02/29/16) Objective Vital Signs Last 24 Hour Vital Signs Date Time Temp Pulse Resp B/P (MAP) Pulse Ox O2 Delivery O2 Flow Rate FiO2 09/02/19 20:56 93 120/68 09/02/19 19:01 96 25 100 Mechanical Ventilator 100 92 26 100 09/02/19 19:00 21 Endotracheal Tube 50 09/02/19 19:00 94 21 116/73 (87) 100 09/02/19 18:00 93 20 119/70 (86) 100 09/02/19 18:00 20 Endotracheal Tube 100 09/02/19 17:19 98 23 100 09/02/19 17:00 98.3 102 29 122/73 (89) 99 09/02/19 17:00 29 Endotracheal Tube 100 09/02/19 16:52 100 09/02/19 16:00 110 36 134/80 (98) 94 09/02/19 16:00 Mechanical Ventilator 09/02/19 16:00 36 Endotracheal Tube 100 20 15:45 110 09/02/19 15:09 112 25 100 09/02/19 15:00 27 Endotracheal Tube 100 09/02/19 15:00 110 27 143/62 (89) 92 09/02/19 14:00 36 Endotracheal Tube 100 09/02/19 14:00 104 29 134/95 (108) 92 09/02/19 13:06 81 29 100 Mechanical Ventilator 80 81 29 80 09/02/19 13:00 98.6 82 22 109/62 (78) 98 09/02/19 13:00 22 Endotracheal Tube 100 09/02/19 12:00 Mechanical Ventilator 09/02/19 12:00 100 09/02/19 12:00 26 Endotracheal Tube 100 09/02/19 12:00 79 26 107/55 (72) 100 09/02/19 11:58 96 09/02/19 11:30 79 27 111/56 (74) 100 09/02/19 11:05 79 24 100 09/02/19 11:00 29 Mechanical Ventilator 50 09/02/19 11:00 79 29 123/55 (77) 100 09/02/19 10:48 24 Endotracheal Tube 45.0 100 09/02/19 10:00 85 24 114/56 (75) 100 09/02/19 09:30 88 25 114/61 (78) 100 09/02/19 09:06 95 120/64 09/02/19 09:05 88 24 100 09/02/19 09:00 88 27 119/60 (79) 100 09/02/19 08:00 98.7 89 27 115/58 (77) 100 09/02/19 08:00 Mechanical Ventilator 09/02/19 08:00 100 09/02/19 07:28 96 09/02/19 07:15 94 25 100 Mechanical Ventilator 100 94 25 100 09/02/19 07:00 99 20 129/61 (83) 100 09/02/19 06:30 101 20 09/02/19 06:30 99 20 124/64 (84) 100 09/02/19 06:00 34 Non-Rebreather 100 09/02/19 06:00 99.8 103 33 141/65 (90) 99 09/02/19 05:38 34 100 09/02/19 05:00 105 24 137/64 (88) 95 09/02/19 05:00 27 Mechanical Ventilator 100 09/02/19 04:00 100.0 102 25 122/66 (84) 99 09/02/19 04:00 103 09/02/19 04:00 Mechanical Ventilator 09/02/19 04:00 25 Mechanical Ventilator 100 09/02/19 04:00 25 Mechanical Ventilator 100 09/02/19 04:00 100 09/02/19 03:40 104 23 100 09/02/19 03:00 100 09/02/19 03:00 105 21 136/70 (92) 96 09/02/19 03:00 23 Mechanical Ventilator 100 09/02/19 02:00 23 Mechanical Ventilator 100 09/02/19 02:00 104 22 143/77 (99) 95 09/02/19 01:00 22 Mechanical Ventilator 100 09/02/19 01:00 104 22 127/79 (95) 97 09/02/19 00:50 102 23 97 Mechanical Ventilator 100 106 23 100 09/02/19 00:30 104 22 130/66 (87) 09/02/19 00:00 97.8 103 24 138/69 (92) 09/02/19 00:00 87 09/02/19 00:00 22 Mechanical Ventilator 100 09/02/19 00:00 Mechanical Ventilator 09/01/19 23:30 102 23 155/102 (119) 97 09/01/19 23:00 101 25 169/84 (112) 91 09/01/19 23:00 23 Mechanical Ventilator 100 09/01/19 23:00 100 09/01/19 23:00 103 25 100 09/01/19 22:30 79 25 147/95 (112) 92 09/01/19 22:00 24 Mechanical Ventilator 100 09/01/19 22:00 82 25 133/57 (82) 97 09/01/19 21:30 82 24 129/58 (81) 97 Height (Feet): 5 Height (Inches): 8.00 Weight (Pounds): 168 General Appearance: other - on vent, no pressors HEENT: normocephalic, atraumatic, anicteric Respiratory/Chest: crackles/rales, rhonchi - bilaterally Cardiovascular: normal rate, regular rhythm, no gallop/murmur Abdomen: normal bowel sounds, soft, non tender, no organomegaly, non distended Genitourinary: other - + verduzco Extremities: no cyanosis Skin: no rash Neurologic/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 No gross pneumothorax. Interim endotracheal intubation, endotracheal tube tip projecting approximately 6 cm above the darline. Right upper lobe infiltrate is unchanged. Left retrocardiac opacification and likely left pleural effusion are unchanged. Impression: Endotracheal intubation Satisfactory placement right jugular central venous catheter, no radiographically evident complication Other stable findings as described 08/25/19 - Procedure: XRAY Chest 1v EXAM: XR Chest, 1 View CLINICAL HISTORY: INTRA-OP TECHNIQUE: Frontal view of the chest. COMPARISON: No relevant prior studies available. FINDINGS: Redemonstrated endotracheal tube, appropriately positioned, the tip projecting above the darline. Right internal jugular central venous catheter tip is again in the upper right atrium. There is no pneumothorax. Bilateral pulmonary consolidation is again noted. This is most confluent in the left midlung and right upper lobe, similar appearance to prior. 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 Chronic rib deformities as well as skeletal degenerative changes. IMPRESSION: No significant interval change in extensive bilateral airspace infiltrates. Chest x-ray - 08/26/19 - Procedure: XRAY Chest 1v Indication: Shortness of breath Technique: One view of the chest Comparison: none Findings: Bilateral diffuse infiltrates appears slightly more extensive than on the previous study. Stable satisfactory positions of endotracheal tube and right jugular central venous catheter. Gastrostomy is demonstrated. Impression: Over one day, interim slight worsening of bilateral infiltrates Other stable findings as described KUB - 08/29/19 - Findings: There are some mildly dilated small bowel loops in the lower midabdomen. A more dilated gas-filled segment of bowel is seen to the right of midline. Uncertain as to whether this represents a very dilated small bowel loop or an upper limits of normal caliber segment of sigmoid colon. There is a gastrostomy noted. There is a Verduzco catheter noted. Impression: Mildly dilated small bowel loops in the lower midabdomen, nonspecific, could indicate ileus versus early obstructive changes Focal segment of either very dilated small bowel or mildly prominent colon in the right upper pelvis, favor the latter Gastrostomy and Verduzco catheter incidentally noted Chest x-ray 08/28/19 - Findings: Heart size is stable. Atherosclerotic calcifications again noted in the aorta. Endotracheal tube stable and satisfactory position. Right transjugular central line has its tip in the region of the high right atrium. A gastrostomy tube is noted. There is interval worsening of aeration with increasing interstitial and patchy bilateral airspace disease. Small layering left pleural effusion not excluded. No evidence of pneumothorax. Again is evidence of prior cardiac surgery with median sternotomy and prosthetic cardiac valve. Osseous structures are stable. IMPRESSION: Interval worsening of aeration with increasing interstitial and patchy bilateral airspace disease. Findings may be on the basis of worsening CHF/pulmonary edema although multifocal pneumonia must also be considered. Endotracheal tube injection is a central line remain in place. 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 Chest -x-ray - 08/31/19 - IMPRESSION: 1. No significant change in bilateral multilobar peripheral opacities and consolidation. 2. Possible small layering left pleural effusion. 3. Pulmonary vascular congestion. Microbiology Date/Time Source Procedure Growth Status 08/27/19 11:45 Blood Blood Culture - Final NO GROWTH AFTER 5 DAYS Complete 08/27/19 14:00 Sputum Gram Stain - Final Complete 08/27/19 14:00 Sputum Culture - Final Staphylococcus Aureus - Mrsa Complete 08/30/19 04:30 Urine,Catheterized Urine Culture - Final NO GROWTH AFTER 48 HOURS Complete 08/19/19 18:30 Rectum - Final NO CARBAPENEM-RESISTANT ENTEROBACTERI... Complete Laboratory Tests Test 09/02/19 04:20 09/02/19 05:51 09/02/19 06:25 09/02/19 10:45 Sodium Level 143 MMOL/L (136-145) Potassium Level 5.6 MMOL/L (3.5-5.1) H Chloride Level 106 MMOL/L (98-107) Carbon Dioxide Level 33 MMOL/L (21-32) H Anion Gap 4 mmol/L (5-15) L Blood Urea Nitrogen 23 mg/dL (7-18) H Creatinine 0.7 MG/DL (0.55-1.30) Estimat Glomerular Filtration Rate > 60 mL/min (>60) Glucose Level 200 MG/DL (74-106) H Calcium Level 8.0 MG/DL (8.5-10.1) L Arterial Blood pH 7.309 (7.350-7.450) Arterial Blood Partial Pressure CO2 70.1 mmHg (35.0-45.0) *H Arterial Blood Partial Pressure O2 153.1 mmHg (75.0-100.0) H Arterial Blood HCO3 34.4 mmol/L (22.0-26.0) H Arterial Blood Oxygen Saturation 98.6 % (95-100) Arterial Blood Base Excess 6.3 (-2-2) H Jag Test Positive White Blood Count 8.7 K/UL (4.8-10.8) Red Blood Count 3.49 M/UL (4.70-6.10) L Hemoglobin 10.8 G/DL (14.2-18.0) L Hematocrit 32.8 % (42.0-52.0) L Mean Corpuscular Volume 94 FL (80-99) Mean Corpuscular Hemoglobin 31.0 PG (27.0-31.0) Mean Corpuscular Hemoglobin Concent 33.0 G/DL (32.0-36.0) Red Cell Distribution Width 12.8 % (11.6-14.8) Platelet Count 281 K/UL (150-450) Mean Platelet Volume 6.7 FL (6.5-10.1) Neutrophils (%) (Auto) % (45.0-75.0) Lymphocytes (%) (Auto) % (20.0-45.0) Monocytes (%) (Auto) % (1.0-10.0) Eosinophils (%) (Auto) % (0.0-3.0) Basophils (%) (Auto) % (0.0-2.0) Differential Total Cells Counted 100 Neutrophils % (Manual) 88 % (45-75) H Lymphocytes % (Manual) 7 % (20-45) L Monocytes % (Manual) 4 % (1-10) Eosinophils % (Manual) 0 % (0-3) Basophils % (Manual) 0 % (0-2) Band Neutrophils 1 % (0-8) Platelet Estimate Adequate Platelet Morphology Normal Hypochromasia 1+ Anisocytosis 1+ Urine Color Yellow Urine Appearance Clear Urine pH 6 (4.5-8.0) Urine Specific [place] 1.020 (1.005-1.035) Urine Protein 3+ (NEGATIVE) H Urine Glucose (UA) Negative (NEGATIVE) Urine Ketones 1+ (NEGATIVE) H Urine Blood 5+ (NEGATIVE) H Urine Nitrite Negative (NEGATIVE) Urine Bilirubin Negative (NEGATIVE) Urine Urobilinogen 4 MG/DL (0.0-1.0) H Urine Leukocyte Esterase Negative (NEGATIVE) Urine RBC 5-10 /HPF (0 - 0) H Urine WBC 0-2 /HPF (0 - 0) Urine Squamous Epithelial Cells Occasional /LPF Urine Amorphous Sediment Few /LPF (NONE) H Urine Bacteria Occasional /HPF (NONE) Current Medications Medications (Trade) Dose Ordered Sig/Vanessa Route PRN Reason Start Time Stop Time Status Last Admin Dose Admin Acetaminophen (Tylenol) 650 mg Q4H PRN RECTAL Temp >100.5 09/01/19 01:30 10/01/19 01:29 09/01/19 10:45 Albuterol Sulfate (Proventil MDI) 2 puff Q6HRT INH 08/22/19 13:00 11/20/19 12:59 09/02/19 19:10 Apixaban (Eliquis) 2.5 mg BID GT 08/26/19 18:00 11/18/19 17:59 09/02/19 17:37 Chlorhexidine Gluconate (Antonella-Hex 2%) 1 applic DAILY@2000 TOPIC 08/21/19 20:00 11/19/19 19:59 09/02/19 20:16 Fentanyl Citrate 2500 mcg/Sodium Chloride 250 ml @ 0 mls/hr Q24H IV 08/28/19 20:00 09/04/19 19:59 09/02/19 10:48 Fluconazole/ Sodium Chloride 200 ml @ 100 mls/hr Q24H IV 08/28/19 13:30 09/04/19 13:29 09/02/19 13:07 Hydralazine HCl (Apresoline) 10 mg Q2H PRN IV Systolic >180 08/26/19 15:45 11/24/19 15:44 Ipratropium [place] (Atrovent Inh) 1 puffs Q6HRT INH 08/22/19 13:00 09/21/19 12:59 09/02/19 19:10 Levetiracetam (Keppra) 1,500 mg Q12HR GT 08/20/19 21:00 09/19/19 20:59 09/02/19 20:55 Linezolid 300 ml @ 300 mls/hr EVERY 12 HOURS IVPB 08/29/19 21:00 09/05/19 20:59 09/02/19 20:55 Meropenem 1 gm/ Sodium Chloride 55 ml @ 110 mls/hr Q8HR IVPB 08/31/19 22:00 09/05/19 21:59 09/02/19 14:48 Methylprednisolone Sodium Succinate (Solu-MEDROL) 20 mg EVERY 12 HOURS IVP 08/31/19 21:00 11/23/19 20:59 09/02/19 20:55 Metoprolol Tartrate (Lopressor) 100 mg EVERY 12 HOURS GT 09/02/19 21:00 12/01/19 20:59 09/02/19 20:56 Midazolam HCl (Versed 2mg/2ml vial) 1 mg Q2H PRN IVP agitation 08/26/19 12:45 11/24/19 12:44 08/30/19 13:30 Pantoprazole (Protonix) 40 mg DAILY IVP 09/03/19 09:00 10/03/19 08:59 Phenytoin (Dilantin) 250 mg DAILY GT 08/21/19 09:00 09/20/19 08:59 Future hold 09/02/19 09:05 Tamsulosin HCl (Flomax) 0.4 mg BEDTIME ORAL 08/20/19 21:00 09/19/19 20:59 09/02/19 20:56 Gwen Velásquez MD Sep 02, 2019 21:10
--- NOTE | 2019-09-02 21:30 | NUR ---
NURSE NOTES: Suctioned tntk whitish madsen secretions moderate in amt. Oral care done.Will continue to monitor.
--- NOTE | 2019-09-02 21:37 | Neurology Progress Note ---
Interim History Interim History ROS Limited/Unobtainable: Yes Interim History remains intubated and sedated Objective Physical Exam Last Vital Signs Date Time Temp Pulse Resp B/P (MAP) Pulse Ox O2 Delivery O2 Flow Rate FiO2 09/02/19 20:56 93 120/68 09/02/19 19:01 25 100 Mechanical Ventilator 100 26 100 09/02/19 17:00 98.3 09/02/19 10:48 45.0 Laboratory Tests Test 09/02/19 04:20 09/02/19 05:51 09/02/19 06:25 09/02/19 10:45 Sodium Level 143 MMOL/L (136-145) Potassium Level 5.6 MMOL/L (3.5-5.1) H Chloride Level 106 MMOL/L (98-107) Carbon Dioxide Level 33 MMOL/L (21-32) H Anion Gap 4 mmol/L (5-15) L Blood Urea Nitrogen 23 mg/dL (7-18) H Creatinine 0.7 MG/DL (0.55-1.30) Estimat Glomerular Filtration Rate > 60 mL/min (>60) Glucose Level 200 MG/DL (74-106) H Calcium Level 8.0 MG/DL (8.5-10.1) L Arterial Blood pH 7.309 (7.350-7.450) Arterial Blood Partial Pressure CO2 70.1 mmHg (35.0-45.0) *H Arterial Blood Partial Pressure O2 153.1 mmHg (75.0-100.0) H Arterial Blood HCO3 34.4 mmol/L (22.0-26.0) H Arterial Blood Oxygen Saturation 98.6 % (95-100) Arterial Blood Base Excess 6.3 (-2-2) H Jag Test Positive White Blood Count 8.7 K/UL (4.8-10.8) Red Blood Count 3.49 M/UL (4.70-6.10) L Hemoglobin 10.8 G/DL (14.2-18.0) L Hematocrit 32.8 % (42.0-52.0) L Mean Corpuscular Volume 94 FL (80-99) Mean Corpuscular Hemoglobin 31.0 PG (27.0-31.0) Mean Corpuscular Hemoglobin Concent 33.0 G/DL (32.0-36.0) Red Cell Distribution Width 12.8 % (11.6-14.8) Platelet Count 281 K/UL (150-450) Mean Platelet Volume 6.7 FL (6.5-10.1) Neutrophils (%) (Auto) % (45.0-75.0) Lymphocytes (%) (Auto) % (20.0-45.0) Monocytes (%) (Auto) % (1.0-10.0) Eosinophils (%) (Auto) % (0.0-3.0) Basophils (%) (Auto) % (0.0-2.0) Differential Total Cells Counted 100 Neutrophils % (Manual) 88 % (45-75) H Lymphocytes % (Manual) 7 % (20-45) L Monocytes % (Manual) 4 % (1-10) Eosinophils % (Manual) 0 % (0-3) Basophils % (Manual) 0 % (0-2) Band Neutrophils 1 % (0-8) Platelet Estimate Adequate Platelet Morphology Normal Hypochromasia 1+ Anisocytosis 1+ Urine Color Yellow Urine Appearance Clear Urine pH 6 (4.5-8.0) Urine Specific [place] 1.020 (1.005-1.035) Urine Protein 3+ (NEGATIVE) H Urine Glucose (UA) Negative (NEGATIVE) Urine Ketones 1+ (NEGATIVE) H Urine Blood 5+ (NEGATIVE) H Urine Nitrite Negative (NEGATIVE) Urine Bilirubin Negative (NEGATIVE) Urine Urobilinogen 4 MG/DL (0.0-1.0) H Urine Leukocyte Esterase Negative (NEGATIVE) Urine RBC 5-10 /HPF (0 - 0) H Urine WBC 0-2 /HPF (0 - 0) Urine Squamous Epithelial Cells Occasional /LPF Urine Amorphous Sediment Few /LPF (NONE) H Urine Bacteria Occasional /HPF (NONE) Neurologic Exam Objective intubated, sedated, minimal withdraw cc 35 min Impression/Recommendations Problems: (1) Suspected 2019 novel coronavirus infection (2) Multi-infarct dementia (3) Uncontrolled seizures (4) History of CVA (cerebrovascular accident) (5) Acute encephalopathy (6) Aspiration pneumonia (7) Respiratory failure Diagnostic Impression icu level of care cont keppra and dilantin Monitor for seizures covid ro started atb wean off sedation when able Ivan Rose MD Sep 02, 2019 21:37
--- NOTE | 2019-09-02 23:00 | NUR ---
NURSE NOTES: No seizure activity noted.padded side rails up x3. on seizure precautions.
[2019-09-03] VITALS (43 sets, daily range): BP systolic 109–182; BP diastolic 50–103
[2019-09-03] MEDS: Ipratropium Bromide Inhaler INH SCH ×4 (00:27→19:00)
[2019-09-03] MEDS: Albuterol 90mcg Inhaler 8gm INH SCH ×4 (00:27→19:00)
--- NOTE | 2019-09-03 01:00 | NUR ---
NURSE NOTES: Tolerated Fdg no residuals. HOB kept elevated. On aspiration precaution.
--- NOTE | 2019-09-03 04:00 | NUR ---
NURSE NOTES: Lg amt of brownish stool was noted , complete bed bath with bed changed was done.
[2019-09-03] MEDS: fentaNYL Citrate 2500mcg in NS 250ml IV SCH ×2 (04:01→16:17)
--- NOTE | 2019-09-03 05:30 | NUR ---
NURSE NOTES: Temp wenr up to 101.5, cooling measures was done, Tylenol grX supp was given. cooling measures on progress.
[2019-09-03] MEDS: Meropenem 1 GM in NS 55 ML IVPB SCH ×3 (05:32→21:59)
[2019-09-03] MEDS: Acetaminophen 650 MG SUPP RECTAL PRN (05:35)
[2019-09-03 05:38] LABS: HEMATOCRIT 30.7 % (42.0-52.0); HEMOGLOBIN 10.2 G/DL (14.2-18.0); MEAN CORPUSCULAR VOLUME 94 FL (80-99); PLATELET COUNT 256 K/UL (150-450); RED BLOOD COUNT 3.28 M/UL (4.70-6.10); RED CELL DISTRIBUTION WIDTH 12.8 % (11.6-14.8); WHITE BLOOD COUNT 8.3 K/UL (4.8-10.8)
[2019-09-03 05:40] LABS: ANION GAP 2 mmol/L (5-15); BLOOD UREA NITROGEN 25 mg/dL (7-18); CALCIUM 7.7 MG/DL (8.5-10.1); CARBON DIOXIDE 36 MMOL/L (21-32); CHLORIDE 103 MMOL/L (98-107); CREATININE 0.7 MG/DL (0.55-1.30); SODIUM 141 MMOL/L (136-145)
--- NOTE | 2019-09-03 06:30 | NUR ---
NURSE NOTES: Temp 99.8F . cooling blankett off.
--- NOTE | 2019-09-03 07:17 | NUR ---
HAND-OFF: Report given to shalini PAULSON.
--- NOTE | 2019-09-03 07:18 | NUR ---
NURSE NOTES: Received patient from Bozena PAULSON. Patient is sedated, RASS -2. A. Fib on the heart monitor, HR 111. Receiving oxygen via ET Tube 7.5, 25cm at the lip line, vent settings: AC 18, TV 450, FiO2 100%, PEEP 5. IV site is Right IJ TLC receiving Fentanyl at 200mcg/hr G-tube is intact and receiving Glucerna 1.2 at 50cc/hr. Swartz catheter is intact and draining. Bed is locked, placed in lowest position, side rails up x3, side rails padded, bed alarm on, call light within reach. Will continue to monitor.
--- NOTE | 2019-09-03 08:58 | NUR ---
RD ASSESSMENT & RECOMMENDATIONS SEE CARE ACTIVITY FOR COMPLETE ASSESSMENT DAILY ESTIMATED NEEDS: Needs based on Critical care, Wounds/ 53kg abw 22-28 kcals/kg 7437-9957 total kcals 1.25-2 g protein/kg 66-106 g total protein 25-30 mL/kg 9585-2934 total fluid mLs NUTRITION DIAGNOSIS: * Swallowing difficulty R/T dysphagia as evidenced by PEG dep, s/p intubation, on GT feeding. * Increased kcal/prot needs R/T wound healing as evidenced by pt admitted w/ evolving DTPI sacral wound and unstageable lt heel wound. CURRENT TF:Glucerna 1.2 @50ml/hr x22 hrs ENTERAL NUTRITION RECOMMENDATIONS: TF CHANGE TO -->> Vital 1.2 @ 50ml/hr x 22 hrs (hold 1 hr before and after Dilantin QD) to provide 1100ml, 1320kcal, 83g prot, 892ml free water * Rec TF change to Vital 1.2 for critical care, carb control, and for 365mg less K per day than current Glucerna 1.2. * Start Vital 1.2 @30ml/hr for 6 hrs, advance as tolerated 10ml/hr q4-6 hrs to goal. * Hold 1 hr before and after Dilantin med * HOB over 30 degrees/ without IVF, H20 flush of 150ml q 6 hrs Monitor Potassium and need for TF change to Nepro for lower potassium intake. ADDITIONAL RECOMMENDATIONS: * Per SNF record, ht is 60", wt is 149lbs (08/14/19) Rec calibrated bedscale wt * Rec NISS w/ TF: BGs elevated, now on Solumedrol * Wound healing: add Vit C 500mg QD + Giancarlo 1pkt BID via PEG * Monitor lytes, need for TF change to Nepro .
[2019-09-03] MEDS: Phenytoin Susp 100mg/4ml GT SCH (09:02)
[2019-09-03] MEDS: Eliquis 2.5mg tablet GT SCH ×2 (09:02→18:12)
[2019-09-03] MEDS: levETIRAcetam 500mg/5ml Liquid GT SCH ×2 (09:02→20:40)
[2019-09-03] MEDS: Metoprolol Tartrate 100mg tab GT SCH ×2 (09:03→20:41)
[2019-09-03] MEDS: Pantoprazole Inj IVP SCH (09:03)
[2019-09-03] MEDS: Solu-MEDROL 40mg Inj IVP SCH ×2 (09:03→20:40)
--- NOTE | 2019-09-03 09:45 | NUR ---
NURSE NOTES: Bed bath given to patient, large brown bowel movement noted. Patient's temperature read 102.5 degrees Fahrenheit via axillary. Prescribed Tylenol given to patient via rectal, ice packs placed on patient. Medications given as prescribed, no adverse reactions noted. Turned and repositioned, oral care given. Will continue to monitor.
--- NOTE | 2019-09-03 09:46 | General Progress Note ---
Assessment/Plan Assessment/Plan: 83YO M with HTN, HLD, COPD, CAD, Seizure disorder presenting with cough and shortness of breath. In the ED, patient was found to be tachycardic (130's) and tachypnic (33) and febrile at 101.2. #Hypoxemic acute respiratory failure #Septic shock #Covid19 positive #transaminitis - likely 2/2 to above, downtrending/stable #Fevers #MRSA pneumonia #Drug reaction/Red Man syndrome - resolved -Appreciate ICU care -Pulm/CCM eval appreciated -Cont. contact plus droplet isolation. -Continuous manager monitoring. -Continue vent management per the ICU team, daily SBT -s/p Plaquenil -08/25 CXR reviewed, worsening b/l infiltrates -08/27 CXR w/Interval worsening of aeration with increasing interstitial and patchy bilateral airspace disease -08/26 BCx NGTD -08/26 SCx - MRSA -cont. linezolid, meropenem and fluconazole -d/w ID, fevers likely 2/2 COVID -will repeat Cxs -ID and Pulm following, recs appreciated #Hyperkalemia #Hypokalemia - resolved -ctm, replace PRN -remains elevated -Kayexalate x 1 -repeat BMP in AM #Abdominal distension - improved, likely Ileus -KUB reviewed -d/w general sx, likely ileus #History of Seizure disorder: -cont Dilantin and Keppra -Neurology following #Accelerated HTN - resolved #HLD #CAD #Eliquis use #Atrial flutter with rapid ventricular response #elevated troponins likely 2/2 demand ischemia, down trending -MTP increased to 100 BID, hydralazine PRN -Eliquis 2.5 -Cardio following, recs appreciated #Sacral Decubitus Ulcer -general sx/wound care following -recs appreciated prognosis guarded I spent 74 minutes on this patient's case, and 40 mins was dedicated to critical care. Critical Care Services performed include: Telemetry Review Hemodynamic measurement interpretation Laboratory data review and interpretation Radiology image review and interpretation Ventilator setting review, management, and adjustment Discussion of patient's care with ICU team, ICU Nursing staff and/or consulting services Subjective Allergies: Coded Allergies: No Known Allergies (Unverified , 02/29/16) Subjective Follow up for acute hypoxic resp failure, septic shock, COVID-19 positive. Pt remains intubated. Fever overnight, 101.4. Objective Last 24 Hour Vital Signs Date Time Temp Pulse Resp B/P (MAP) Pulse Ox O2 Delivery O2 Flow Rate FiO2 09/03/19 09:03 106 111/64 09/03/19 08:30 111 25 119/72 (88) 98 09/03/19 08:00 Mechanical Ventilator 09/03/19 08:00 112 26 109/65 (80) 99 09/03/19 08:00 100 09/03/19 07:30 114 29 125/64 (84) 99 09/03/19 07:20 111 30 100 09/03/19 07:00 115 29 136/67 (90) 100 09/03/19 06:30 101 24 09/03/19 06:05 100.6 09/03/19 06:00 121 31 152/74 (100) 92 09/03/19 06:00 26 Mechanical Ventilator 100 09/03/19 05:56 121 31 182/77 (112) 89 09/03/19 05:53 120 31 180/72 (108) 88 09/03/19 05:30 106 28 166/79 (108) 100 09/03/19 05:00 101.4 93 29 137/68 (91) 100 09/03/19 05:00 24 Mechanical Ventilator 100 09/03/19 04:35 94 27 100 09/03/19 04:30 92 26 136/51 (79) 100 09/03/19 04:01 26 Mechanical Ventilator 80 09/03/19 04:00 80 09/03/19 04:00 100.6 98 34 147/89 (108) 88 09/03/19 04:00 Mechanical Ventilator 09/03/19 04:00 80 09/03/19 03:30 87 28 120/50 (73) 99 09/03/19 03:01 99 25 80 09/03/19 03:00 83 27 117/58 (77) 100 09/03/19 02:30 83 24 119/55 (76) 100 09/03/19 02:00 83 24 119/57 (77) 100 09/03/19 01:30 83 23 120/56 (77) 100 09/03/19 01:00 23 Mechanical Ventilator 100 09/03/19 01:00 82 24 121/61 (81) 99 09/03/19 00:31 92 23 100 Mechanical Ventilator 90 94 25 100 09/03/19 00:30 80 22 118/55 (76) 100 09/03/19 00:00 100 09/03/19 00:00 98.8 82 22 116/55 (75) 100 09/03/19 00:00 82 09/03/19 00:00 22 Mechanical Ventilator 100 09/03/19 00:00 Mechanical Ventilator 09/02/19 23:30 83 25 119/63 (81) 100 09/02/19 23:00 23 Mechanical Ventilator 100 09/02/19 23:00 91 22 127/63 (84) 100 09/02/19 22:59 91 24 100 09/02/19 22:30 92 19 121/68 (85) 99 09/02/19 22:00 92 19 122/70 (87) 99 09/02/19 22:00 21 Mechanical Ventilator 100 09/02/19 21:30 92 19 117/64 (81) 100 09/02/19 21:00 92 22 127/62 (83) 100 09/02/19 21:00 20 Mechanical Ventilator 100 09/02/19 20:56 93 120/68 420 20:30 93 19 120/68 (85) 100 09/02/19 20:00 99.0 95 19 127/65 (85) 100 20 20:00 Mechanical Ventilator 09/02/19 20:00 20 Mechanical Ventilator 100 20 20:00 100 20 20:00 92 09/02/19 19:01 96 25 100 Mechanical Ventilator 100 92 26 100 09/02/19 19:00 21 Endotracheal Tube 50 20 19:00 94 21 116/73 (87) 100 20 18:00 93 20 119/70 (86) 100 09/02/19 18:00 20 Endotracheal Tube 100 09/02/19 17:19 98 23 100 09/02/19 17:00 98.3 102 29 122/73 (89) 99 20 17:00 29 Endotracheal Tube 100 20 16:52 100 09/02/19 16:00 110 36 134/80 (98) 94 20 16:00 Mechanical Ventilator 09/02/19 16:00 36 Endotracheal Tube 100 09/02/19 15:45 110 09/02/19 15:09 112 25 100 09/02/19 15:00 27 Endotracheal Tube 100 09/02/19 15:00 110 27 143/62 (89) 92 09/02/19 14:00 36 Endotracheal Tube 100 09/02/19 14:00 104 29 134/95 (108) 92 09/02/19 13:06 81 29 100 Mechanical Ventilator 80 81 29 80 09/02/19 13:00 98.6 82 22 109/62 (78) 98 09/02/19 13:00 22 Endotracheal Tube 100 09/02/19 12:00 Mechanical Ventilator 09/02/19 12:00 100 09/02/19 12:00 26 Endotracheal Tube 100 09/02/19 12:00 79 26 107/55 (72) 100 09/02/19 11:58 96 09/02/19 11:30 79 27 111/56 (74) 100 09/02/19 11:05 79 24 100 09/02/19 11:00 29 Mechanical Ventilator 50 09/02/19 11:00 79 29 123/55 (77) 100 09/02/19 10:48 24 Endotracheal Tube 45.0 100 09/02/19 10:00 85 24 114/56 (75) 100 Intake and Output 09/02/19 09/03/19 19:00 07:00 Intake Total 1789 ml 1242 ml Output Total 850 ml 630 ml Balance 939 ml 612 ml Free Water 500 ml 90 ml IV Total 689 ml 552 ml Tube Feeding 600 ml 600 ml Output Urine Total 850 ml 630 ml # Bowel Movements 6 Laboratory Tests 09/02/19 10:45: Urine Color Yellow, Urine Appearance Clear, Urine pH 6, Urine Specific [place] 1.020, Urine Protein 3+H, Urine Glucose (UA) Negative, Urine Ketones 1+H, Urine Blood 5+H, Urine Nitrite Negative, Urine Bilirubin Negative, Urine Urobilinogen 4H, Urine Leukocyte Esterase Negative, Urine RBC 5-10H, Urine WBC 0-2, Urine Squamous Epithelial Cells Occasional, Urine Amorphous Sediment FewH, Urine Bacteria Occasional 09/03/19 04:00: White Blood Count 8.3, Red Blood Count 3.28L, Hemoglobin 10.2L, Hematocrit 30.7L , Mean Corpuscular Volume 94, Mean Corpuscular Hemoglobin 31.2H, Mean Corpuscular Hemoglobin Concent 33.3, Red Cell Distribution Width 12.8, Platelet Count 256, Mean Platelet Volume 7.8, Neutrophils (%) (Auto) , Lymphocytes (%) ( Auto) , Monocytes (%) (Auto) , Eosinophils (%) (Auto) , Basophils (%) (Auto) , Differential Total Cells Counted 100, Neutrophils % (Manual) 84H, Lymphocytes % (Manual) 10L, Monocytes % (Manual) 6, Eosinophils % (Manual) 0, Basophils % ( Manual) 0, Band Neutrophils 0, Nucleated Red Blood Cells 1, Platelet Estimate Adequate, Platelet Morphology Normal, Polychromasia 1+, Hypochromasia 1+, Sodium Level 141, Potassium Level 5.0, Chloride Level 103, Carbon Dioxide Level 36H, Anion Gap 2L, Blood Urea Nitrogen 25H, Creatinine 0.7, Estimat Glomerular Filtration Rate > 60, Glucose Level 173H, Calcium Level 7.7L Height (Feet): 5 Height (Inches): 8.00 Weight (Pounds): 165 Objective General: Intubated, appears comfortable HEENT: NCAT CV: RRR on tele monitor Pulm: b/l rise in lungs Ext: heels wrapped in bandages Liliana Leal M.D. Sep 03, 2019 09:46
--- NOTE | 2019-09-03 10:15 | NUR ---
RADIOLOGY DEPT., CHEST X-RAY DONE.-P.DYE
--- NOTE | 2019-09-03 10:35 | Cardiac Electrophysiology PN ---
Assessment/Plan Assessment/Plan 1. Paroxysmal Atrial flutter with rapid ventricular response. In SR with first degree AVB On Eliquis 2.5 mg bid, metoprolol increased to 100 mg bid. 2. Accelerated hypertension with blood pressure of 200. Continue metoprolol 100 mg b.i.d. and p.r.n. IV hydralazine. 3. 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 4. Respiratory failure due to COVID-19 pneumonia. On the Vent on 100% fio2 Completed hydroxychloroquine. EKG QT 440 . 5. Sepsis on Solu-Medrol and Meropenem per ID 6. History of CVA. 7. Multi-infarct dementia. 8. History of seizures. 9. Abdominal distension DW RN Subjective Subjective Intubated in ICU on the vent back up to 100% Fio2 . Covid is positive. In SR, still off pressors. Had atrial fib with RVR 120s and Lopressor increased to 100 bid . PEG feeding ongoing. Full code Objective Last 24 Hour Vital Signs Date Time Temp Pulse Resp B/P (MAP) Pulse Ox O2 Delivery O2 Flow Rate FiO2 09/03/19 09:03 106 111/64 09/03/19 08:30 111 25 119/72 (88) 98 09/03/19 08:00 Mechanical Ventilator 09/03/19 08:00 112 26 109/65 (80) 99 09/03/19 08:00 100 09/03/19 07:30 114 29 125/64 (84) 99 09/03/19 07:20 111 30 100 09/03/19 07:00 115 29 136/67 (90) 100 09/03/19 06:30 101 24 09/03/19 06:05 100.6 09/03/19 06:00 121 31 152/74 (100) 92 09/03/19 06:00 26 Mechanical Ventilator 100 09/03/19 05:56 121 31 182/77 (112) 89 09/03/19 05:53 120 31 180/72 (108) 88 09/03/19 05:30 106 28 166/79 (108) 100 09/03/19 05:00 101.4 93 29 137/68 (91) 100 09/03/19 05:00 24 Mechanical Ventilator 100 09/03/19 04:35 94 27 100 09/03/19 04:30 92 26 136/51 (79) 100 4/21/20 04:01 26 Mechanical Ventilator 80 09/03/19 04:00 80 09/03/19 04:00 100.6 98 34 147/89 (108) 88 09/03/19 04:00 Mechanical Ventilator 09/03/19 04:00 80 09/03/19 03:30 87 28 120/50 (73) 99 09/03/19 03:01 99 25 80 09/03/19 03:00 83 27 117/58 (77) 100 09/03/19 02:30 83 24 119/55 (76) 100 09/03/19 02:00 83 24 119/57 (77) 100 09/03/19 01:30 83 23 120/56 (77) 100 09/03/19 01:00 23 Mechanical Ventilator 100 09/03/19 01:00 82 24 121/61 (81) 99 09/03/19 00:31 92 23 100 Mechanical Ventilator 90 94 25 100 09/03/19 00:30 80 22 118/55 (76) 100 09/03/19 00:00 100 09/03/19 00:00 98.8 82 22 116/55 (75) 100 09/03/19 00:00 82 09/03/19 00:00 22 Mechanical Ventilator 100 09/03/19 00:00 Mechanical Ventilator 09/02/19 23:30 83 25 119/63 (81) 100 09/02/19 23:00 23 Mechanical Ventilator 100 09/02/19 23:00 91 22 127/63 (84) 100 09/02/19 22:59 91 24 100 09/02/19 22:30 92 19 121/68 (85) 99 09/02/19 22:00 92 19 122/70 (87) 99 09/02/19 22:00 21 Mechanical Ventilator 100 09/02/19 21:30 92 19 117/64 (81) 100 09/02/19 21:00 92 22 127/62 (83) 100 09/02/19 21:00 20 Mechanical Ventilator 100 09/02/19 20:56 93 120/68 09/02/19 20:30 93 19 120/68 (85) 100 09/02/19 20:00 99.0 95 19 127/65 (85) 100 09/02/19 20:00 Mechanical Ventilator 4/20/20 20:00 20 Mechanical Ventilator 100 09/02/19 20:00 100 09/02/19 20:00 92 09/02/19 19:01 96 25 100 Mechanical Ventilator 100 92 26 100 09/02/19 19:00 21 Endotracheal Tube 50 09/02/19 19:00 94 21 116/73 (87) 100 09/02/19 18:00 93 20 119/70 (86) 100 09/02/19 18:00 20 Endotracheal Tube 100 09/02/19 17:19 98 23 100 09/02/19 17:00 98.3 102 29 122/73 (89) 99 09/02/19 17:00 29 Endotracheal Tube 100 09/02/19 16:52 100 09/02/19 16:00 110 36 134/80 (98) 94 09/02/19 16:00 Mechanical Ventilator 09/02/19 16:00 36 Endotracheal Tube 100 09/02/19 15:45 110 09/02/19 15:09 112 25 100 09/02/19 15:00 27 Endotracheal Tube 100 09/02/19 15:00 110 27 143/62 (89) 92 09/02/19 14:00 36 Endotracheal Tube 100 09/02/19 14:00 104 29 134/95 (108) 92 09/02/19 13:06 81 29 100 Mechanical Ventilator 80 81 29 80 09/02/19 13:00 98.6 82 22 109/62 (78) 98 09/02/19 13:00 22 Endotracheal Tube 100 09/02/19 12:00 Mechanical Ventilator 09/02/19 12:00 100 09/02/19 12:00 26 Endotracheal Tube 100 09/02/19 12:00 79 26 107/55 (72) 100 09/02/19 11:58 96 09/02/19 11:30 79 27 111/56 (74) 100 09/02/19 11:05 79 24 100 09/02/19 11:00 29 Mechanical Ventilator 50 09/02/19 11:00 79 29 123/55 (77) 100 09/02/19 10:48 24 Endotracheal Tube 45.0 100 Intake and Output 09/02/19 09/03/19 19:00 07:00 Intake Total 1789 ml 1242 ml Output Total 850 ml 630 ml Balance 939 ml 612 ml Free Water 500 ml 90 ml IV Total 689 ml 552 ml Tube Feeding 600 ml 600 ml Output Urine Total 850 ml 630 ml # Bowel Movements 6 Laboratory Tests Test 09/02/19 10:45 09/03/19 04:00 Urine Color Yellow Urine Appearance Clear Urine pH 6 (4.5-8.0) Urine Specific [place] 1.020 (1.005-1.035) Urine Protein 3+ (NEGATIVE) H Urine Glucose (UA) Negative (NEGATIVE) Urine Ketones 1+ (NEGATIVE) H Urine Blood 5+ (NEGATIVE) H Urine Nitrite Negative (NEGATIVE) Urine Bilirubin Negative (NEGATIVE) Urine Urobilinogen 4 MG/DL (0.0-1.0) H Urine Leukocyte Esterase Negative (NEGATIVE) Urine RBC 5-10 /HPF (0 - 0) H Urine WBC 0-2 /HPF (0 - 0) Urine Squamous Epithelial Cells Occasional /LPF Urine Amorphous Sediment Few /LPF (NONE) H Urine Bacteria Occasional /HPF (NONE) White Blood Count 8.3 K/UL (4.8-10.8) Red Blood Count 3.28 M/UL (4.70-6.10) L Hemoglobin 10.2 G/DL (14.2-18.0) L Hematocrit 30.7 % (42.0-52.0) L Mean Corpuscular Volume 94 FL (80-99) Mean Corpuscular Hemoglobin 31.2 PG (27.0-31.0) H Mean Corpuscular Hemoglobin Concent 33.3 G/DL (32.0-36.0) Red Cell Distribution Width 12.8 % (11.6-14.8) Platelet Count 256 K/UL (150-450) Mean Platelet Volume 7.8 FL (6.5-10.1) Neutrophils (%) (Auto) % (45.0-75.0) Lymphocytes (%) (Auto) % (20.0-45.0) Monocytes (%) (Auto) % (1.0-10.0) Eosinophils (%) (Auto) % (0.0-3.0) Basophils (%) (Auto) % (0.0-2.0) Differential Total Cells Counted 100 Neutrophils % (Manual) 84 % (45-75) H Lymphocytes % (Manual) 10 % (20-45) L Monocytes % (Manual) 6 % (1-10) Eosinophils % (Manual) 0 % (0-3) Basophils % (Manual) 0 % (0-2) Band Neutrophils 0 % (0-8) Nucleated Red Blood Cells 1 /100 WBC Platelet Estimate Adequate Platelet Morphology Normal Polychromasia 1+ Hypochromasia 1+ Sodium Level 141 MMOL/L (136-145) Potassium Level 5.0 MMOL/L (3.5-5.1) Chloride Level 103 MMOL/L (98-107) Carbon Dioxide Level 36 MMOL/L (21-32) H Anion Gap 2 mmol/L (5-15) L Blood Urea Nitrogen 25 mg/dL (7-18) H Creatinine 0.7 MG/DL (0.55-1.30) Estimat Glomerular Filtration Rate > 60 mL/min (>60) Glucose Level 173 MG/DL (74-106) H Calcium Level 7.7 MG/DL (8.5-10.1) L Objective HEAD AND NECK: No JVD. Orally intubated. LUNGS: Coarse rhonchi. CARDIOVASCULAR: Irregular S1 and S2 with no gallop or murmur. ABDOMEN: Soft.PEG intact EXTREMITIES: 1 plus pitting edema. Paul Robles MD Sep 03, 2019 10:35
--- NOTE | 2019-09-03 12:17 | Pulmonolgy Critical Care Note ---
Critical Care - Asmt/Plan Problems: (1) Respiratory failure (2) Suspected 2019 novel coronavirus infection (3) History of CVA (cerebrovascular accident) (4) Acute encephalopathy (5) Multi-infarct dementia (6) Uncontrolled seizures (7) Atrial fibrillation and flutter Assessment/Plan: CXR Continue ventilatory support/hold off on weaning ---> AC 16 TV 450, PEEP 10, wean O2 Monitor gas exchange Proning 12hr on/off MDI in line with Vent Continue SM 20 IV BID (D10) and taper Completed 5 days of Plaquenil Zyvox/Candis/Flucon per ID Monitor CRP and ferritin D/W pharmacy RE: Tociluzumab - per pharmacist on national shortage and cannot get, will continue to follow up Remdesivir limited to trial, cannot get under compassionate care Monitor volumes and renal function ICU sedation: Fent gtt for RASS -2 with PRN Versed F/U neuro recs, continue AED's Monitor LFT's TF's DVT Px: Eliquis FC, continue to discuss GOC Time Spent (Minutes): 40 Notes Reviewed: irrigation technician, cardio, ID, neuro Discussed with: nurses, consultants Critical Care - Objective Last 24 Hour Vital Signs Date Time Temp Pulse Resp B/P (MAP) Pulse Ox O2 Delivery O2 Flow Rate FiO2 09/03/19 11:26 99 22 100 09/03/19 11:00 99 24 113/58 (76) 97 09/03/19 11:00 24 Endotracheal Tube 100 09/03/19 10:30 99 22 112/57 (75) 99 09/03/19 10:00 23 Endotracheal Tube 100 09/03/19 10:00 99 23 119/62 (81) 99 09/03/19 09:30 108 24 114/62 (79) 98 09/03/19 09:03 106 111/64 09/03/19 09:00 102.5 109 24 116/65 (82) 98 09/03/19 09:00 24 Endotracheal Tube 100 09/03/19 08:30 111 25 119/72 (88) 98 09/03/19 08:00 Mechanical Ventilator 09/03/19 08:00 112 26 109/65 (80) 99 09/03/19 08:00 100 09/03/19 08:00 26 Mechanical Ventilator 100 09/03/19 07:53 112 09/03/19 07:30 114 29 125/64 (84) 99 09/03/19 07:20 111 30 100 09/03/19 07:00 115 29 136/67 (90) 100 09/03/19 07:00 29 Endotracheal Tube 100 09/03/19 06:30 101 24 09/03/19 06:05 100.6 09/03/19 06:00 121 31 152/74 (100) 92 09/03/19 06:00 26 Mechanical Ventilator 100 09/03/19 05:56 121 31 182/77 (112) 89 09/03/19 05:53 120 31 180/72 (108) 88 09/03/19 05:30 106 28 166/79 (108) 100 09/03/19 05:00 101.4 93 29 137/68 (91) 100 09/03/19 05:00 24 Mechanical Ventilator 100 09/03/19 04:35 94 27 100 09/03/19 04:30 92 26 136/51 (79) 100 09/03/19 04:01 26 Mechanical Ventilator 80 09/03/19 04:00 80 09/03/19 04:00 100.6 98 34 147/89 (108) 88 09/03/19 04:00 Mechanical Ventilator 09/03/19 04:00 80 09/03/19 03:30 87 28 120/50 (73) 99 09/03/19 03:01 99 25 80 09/03/19 03:00 83 27 117/58 (77) 100 09/03/19 02:30 83 24 119/55 (76) 100 09/03/19 02:00 83 24 119/57 (77) 100 09/03/19 01:30 83 23 120/56 (77) 100 09/03/19 01:00 23 Mechanical Ventilator 100 09/03/19 01:00 82 24 121/61 (81) 99 09/03/19 00:31 92 23 100 Mechanical Ventilator 90 94 25 100 09/03/19 00:30 80 22 118/55 (76) 100 09/03/19 00:00 100 09/03/19 00:00 98.8 82 22 116/55 (75) 100 09/03/19 00:00 82 09/03/19 00:00 22 Mechanical Ventilator 100 09/03/19 00:00 Mechanical Ventilator 4/20/20 23:30 83 25 119/63 (81) 100 4/20/20 23:00 23 Mechanical Ventilator 100 4/20/20 23:00 91 22 127/63 (84) 100 4/20/20 22:59 91 24 100 4/20/20 22:30 92 19 121/68 (85) 99 4/20/20 22:00 92 19 122/70 (87) 99 4/20/20 22:00 21 Mechanical Ventilator 100 4/20/20 21:30 92 19 117/64 (81) 100 4/20/20 21:00 92 22 127/62 (83) 100 4/20/20 21:00 20 Mechanical Ventilator 100 4/20/20 20:56 93 120/68 4/20/20 20:30 93 19 120/68 (85) 100 4/20/20 20:00 99.0 95 19 127/65 (85) 100 4/20/20 20:00 Mechanical Ventilator 4/20 20:00 20 Mechanical Ventilator 100 4/20 20:00 100 420/20 20:00 92 42020 19:01 96 25 100 Mechanical Ventilator 100 92 26 100 4/20/20 19:00 21 Endotracheal Tube 50 420/20 19:00 94 21 116/73 (87) 100 4/20/20 18:00 93 20 119/70 (86) 100 420/20 18:00 20 Endotracheal Tube 100 09/01/20 17:19 98 23 100 4/20/20 17:00 98.3 102 29 122/73 (89) 99 20/20 17:00 29 Endotracheal Tube 100 20 16:52 100 420/20 16:00 110 36 134/80 (98) 94 420/20 16:00 Mechanical Ventilator [id number] 16:00 36 Endotracheal Tube 100 20/20 15:45 110 4/20/20 15:09 112 25 100 4/20/20 15:00 27 Endotracheal Tube 100 420/20 15:00 110 27 143/62 (89) 92 4/20/20 14:00 36 Endotracheal Tube 100 420/20 14:00 104 29 134/95 (108) 92 420 13:06 81 29 100 Mechanical Ventilator 80 81 29 80 [id number] 13:00 98.6 82 22 109/62 (78) 98 09/02/19 13:00 22 Endotracheal Tube 100 Status: sedated - uintubated Condition: critical HEENT: other - OGT ETT Lungs: other - vent Heart: HR/BP unstable, irregular Critical Care - Subjective ROS Limited/Unobtainable: Yes ICU Day: 12 Intubation Day: 13 Interval Events: Tm 102.5 Condition: critical IV Access: central - R IJ EKG Rhythm: Atrial Fibrillation FI02: 100 Vent Support Breath Rate: 18 Vent Support Mode: AC Vent Tidal Volume: 450 Sputum Amount: Small PEEP: 10.0 PIP: 37 Secretions: samll thick Fluids: SLIV Drips: Fent off Tube Feeding Amount: 50 I&O: Intake and Output 09/02/19 09/03/19 19:00 07:00 Intake Total 1789 ml 1262 ml Output Total 850 ml 630 ml Balance 939 ml 632 ml Free Water 500 ml 90 ml IV Total 689 ml 572 ml Tube Feeding 600 ml 600 ml Output Urine Total 850 ml 630 ml # Bowel Movements 6 Subjective: REYMUNDO ET-Tube: 7.5 ET Position: 25 Labs: Laboratory Tests Test 09/03/19 04:00 White Blood Count 8.3 K/UL (4.8-10.8) Red Blood Count 3.28 M/UL (4.70-6.10) L Hemoglobin 10.2 G/DL (14.2-18.0) L Hematocrit 30.7 % (42.0-52.0) L Mean Corpuscular Volume 94 FL (80-99) Mean Corpuscular Hemoglobin 31.2 PG (27.0-31.0) H Mean Corpuscular Hemoglobin Concent 33.3 G/DL (32.0-36.0) Red Cell Distribution Width 12.8 % (11.6-14.8) Platelet Count 256 K/UL (150-450) Mean Platelet Volume 7.8 FL (6.5-10.1) Neutrophils (%) (Auto) % (45.0-75.0) Lymphocytes (%) (Auto) % (20.0-45.0) Monocytes (%) (Auto) % (1.0-10.0) Eosinophils (%) (Auto) % (0.0-3.0) Basophils (%) (Auto) % (0.0-2.0) Differential Total Cells Counted 100 Neutrophils % (Manual) 84 % (45-75) H Lymphocytes % (Manual) 10 % (20-45) L Monocytes % (Manual) 6 % (1-10) Eosinophils % (Manual) 0 % (0-3) Basophils % (Manual) 0 % (0-2) Band Neutrophils 0 % (0-8) Nucleated Red Blood Cells 1 /100 WBC Platelet Estimate Adequate Platelet Morphology Normal Polychromasia 1+ Hypochromasia 1+ Sodium Level 141 MMOL/L (136-145) Potassium Level 5.0 MMOL/L (3.5-5.1) Chloride Level 103 MMOL/L (98-107) Carbon Dioxide Level 36 MMOL/L (21-32) H Anion Gap 2 mmol/L (5-15) L Blood Urea Nitrogen 25 mg/dL (7-18) H Creatinine 0.7 MG/DL (0.55-1.30) Estimat Glomerular Filtration Rate > 60 mL/min (>60) Glucose Level 173 MG/DL (74-106) H Calcium Level 7.7 MG/DL (8.5-10.1) L David Nash MD Sep 03, 2019 12:17
--- NOTE | 2019-09-03 12:24 | Diagnostic Imaging Report ---
Indication: Reason For Exam: SOB Technique: One view of the chest Comparison: 08/31/2019 Findings: Extensive bilateral interstitial and airspace infiltrates are again demonstrated. Areas of dense consolidation in the upper lobes have improved in the interim, however. There is also slightly better aeration at the right lung base. Consolidation in the right mid lung is slightly worse. Right jugular central venous catheter is again demonstrated. Median sternotomy sutures are again demonstrated. The heart is upper limits normal in size. Interim extubation. Impression: Interim extubation Shifting infiltrates, as described, with overall slight improvement but still extensive disease
--- NOTE | 2019-09-03 13:10 | NUR ---
NURSE NOTES: Patient, turned and repositioned, oral care given. Medications given as prescribed, no adverse reaction noted. Ice packs left on patient, 1300 temperature read 99.9 degrees Fahrenheit. Will continue to monitor.
--- NOTE | 2019-09-03 16:46 | NUR ---
CASE MANAGEMENT: REVIEW 09/03/19 SI: MRSA SPUTUM (+) . RESPIRATORY D/T COVID-19 . HX CVA . SEIZURE PRECAUTIONS 102.5 109 24 116/65 98% ON ET TUBE FiO2 100 H/H 10.2/30.7 BUN 25 BG 173 CA+ 7.7 IS:IV MEROPENEM TID IV DIFLUCAN QD IV FENTANYL QD IV ZYVOX BID IV VERSED Q2HR/PRN IV FENTANYL CITRATE BID IV SOLU-MEDROL 20mg BID DILANTA GT BID LOPRESSOR GT BID PROVENTIL INH Q6HR ATROVENT INH Q6HR KEPPRA GT BID ELIQUIS GT BID FLOMAX PO QHS IV PROTONIX QD TYLENOL GT Q6HR SVETLANA-HEX 2% TP DQ \: INTENSIVE CARE UNIT DCP: [facility] WHEN STABLE PLAN: CONT VENT SUPPORT- HOLD OFF ON WEANING PRONING Q12HR ON/OFF ' CONTROL FEVERS ADJUST FIO2
--- NOTE | 2019-09-03 19:05 | NUR ---
HAND-OFF: Report given to Bozena PAULSON.
--- NOTE | 2019-09-03 19:30 | NUR ---
NURSE NOTES: Received pt obtunded, orally intubated on ac mode sedated with Fentanyl drip at 200mcg/hr infusing to Rt IJ central line. site with drsg dry and intact. SR with ist degree AVB VS Afib controlled rate bp stable. Pt has 3-4+ edema as well as scrotal edema. Both arms elevated with pillow. Pt also has sacral open wound covered with optifoam and clean and dry. as well as left heel unstageable, On p200 mattress. Turned q 2hrs prn with good skin care done. Will continue to monitor.
[2019-09-03] MEDS: Dyna-Hex 2% Top Sol 2oz TOPIC SCH (20:23)
[2019-09-03] MEDS: Tamsulosin 0.4mg cap ORAL SCH (20:41)
--- NOTE | 2019-09-03 21:30 | NUR ---
NURSE NOTES: Oral care done, pt has lg stool at this time. cleaned up pt.Turned q 2hrs prn with good skin care done.
--- NOTE | 2019-09-03 22:13 | Neurology Progress Note ---
Interim History Interim History ROS Limited/Unobtainable: Yes Interim History remains with fevers Objective Physical Exam Last Vital Signs Date Time Temp Pulse Resp B/P (MAP) Pulse Ox O2 Delivery O2 Flow Rate FiO2 09/03/19 20:41 84 116/61 09/03/19 19:59 23 100 Mechanical Ventilator 100 23 100 09/03/19 13:00 99.6 09/02/19 10:48 45.0 Laboratory Tests Test 09/03/19 04:00 White Blood Count 8.3 K/UL (4.8-10.8) Red Blood Count 3.28 M/UL (4.70-6.10) L Hemoglobin 10.2 G/DL (14.2-18.0) L Hematocrit 30.7 % (42.0-52.0) L Mean Corpuscular Volume 94 FL (80-99) Mean Corpuscular Hemoglobin 31.2 PG (27.0-31.0) H Mean Corpuscular Hemoglobin Concent 33.3 G/DL (32.0-36.0) Red Cell Distribution Width 12.8 % (11.6-14.8) Platelet Count 256 K/UL (150-450) Mean Platelet Volume 7.8 FL (6.5-10.1) Neutrophils (%) (Auto) % (45.0-75.0) Lymphocytes (%) (Auto) % (20.0-45.0) Monocytes (%) (Auto) % (1.0-10.0) Eosinophils (%) (Auto) % (0.0-3.0) Basophils (%) (Auto) % (0.0-2.0) Differential Total Cells Counted 100 Neutrophils % (Manual) 84 % (45-75) H Lymphocytes % (Manual) 10 % (20-45) L Monocytes % (Manual) 6 % (1-10) Eosinophils % (Manual) 0 % (0-3) Basophils % (Manual) 0 % (0-2) Band Neutrophils 0 % (0-8) Nucleated Red Blood Cells 1 /100 WBC Platelet Estimate Adequate Platelet Morphology Normal Polychromasia 1+ Hypochromasia 1+ Sodium Level 141 MMOL/L (136-145) Potassium Level 5.0 MMOL/L (3.5-5.1) Chloride Level 103 MMOL/L (98-107) Carbon Dioxide Level 36 MMOL/L (21-32) H Anion Gap 2 mmol/L (5-15) L Blood Urea Nitrogen 25 mg/dL (7-18) H Creatinine 0.7 MG/DL (0.55-1.30) Estimat Glomerular Filtration Rate > 60 mL/min (>60) Glucose Level 173 MG/DL (74-106) H Calcium Level 7.7 MG/DL (8.5-10.1) L Neurologic Exam Objective intubated, sedated, minimal withdraw cc 35 min Impression/Recommendations Problems: (1) Suspected 2019 novel coronavirus infection (2) Multi-infarct dementia (3) Uncontrolled seizures (4) History of CVA (cerebrovascular accident) (5) Acute encephalopathy (6) Aspiration pneumonia (7) Respiratory failure Diagnostic Impression icu level of care cont kepp and dilantifrank Monitor for seizures covid ro started atb wean off sedation when able Ivan Rose MD Sep 03, 2019 22:13
--- NOTE | 2019-09-03 22:26 | Surgery Progress Note ---
Surgery Progress Note Subjective Additional Comments late entry ill appearing seen this AM not much change Objective Last 24 Hour Vital Signs Date Time Temp Pulse Resp B/P (MAP) Pulse Ox O2 Delivery O2 Flow Rate FiO2 09/03/19 20:41 84 116/61 09/03/19 19:59 89 23 100 Mechanical Ventilator 100 91 23 100 09/03/19 19:00 89 22 121/59 (79) 96 09/03/19 18:30 93 22 119/61 (80) 96 09/03/19 18:00 20 Endotracheal Tube 100 09/03/19 18:00 93 20 109/55 (73) 99 09/03/19 17:00 103 30 125/61 (82) 100 09/03/19 17:00 30 Endotracheal Tube 100 09/03/19 16:30 114 30 136/103 (114) 98 09/03/19 16:17 30 Endotracheal Tube 100 09/03/19 16:00 100 09/03/19 16:00 Mechanical Ventilator 09/03/19 16:00 25 Endotracheal Tube 100 09/03/19 16:00 91 25 125/69 (87) 100 09/03/19 15:57 90 22 100 09/03/19 15:30 90 22 115/61 (79) 100 09/03/19 15:28 98 09/03/19 15:00 94 23 123/62 (82) 97 09/03/19 15:00 23 Endotracheal Tube 100 09/03/19 15:00 94 23 123/62 (82) 97 09/03/19 14:00 23 Endotracheal Tube 100 09/03/19 14:00 96 22 123/79 (94) 98 09/03/19 13:00 23 Endotracheal Tube 100 09/03/19 13:00 99.6 97 23 120/64 (82) 97 09/03/19 12:00 22 Endotracheal Tube 100 09/03/19 12:00 100 09/03/19 12:00 Mechanical Ventilator 09/03/19 12:00 97 22 116/65 (82) 98 09/03/19 11:26 99 22 100 09/03/19 11:15 98 09/03/19 11:00 99 24 113/58 (76) 97 09/03/19 11:00 24 Endotracheal Tube 100 09/03/19 10:30 99 22 112/57 (75) 99 09/03/19 10:00 23 Endotracheal Tube 100 09/03/19 10:00 99 23 119/62 (81) 99 09/03/19 09:30 108 24 114/62 (79) 98 09/03/19 09:03 106 111/64 09/03/19 09:00 102.5 109 24 116/65 (82) 98 09/03/19 09:00 24 Endotracheal Tube 100 09/03/19 08:30 111 25 119/72 (88) 98 09/03/19 08:00 Mechanical Ventilator 09/03/19 08:00 112 26 109/65 (80) 99 09/03/19 08:00 100 09/03/19 08:00 26 Mechanical Ventilator 100 09/03/19 07:53 112 09/03/19 07:30 114 29 125/64 (84) 99 09/03/19 07:20 111 30 100 09/03/19 07:00 115 29 136/67 (90) 100 09/03/19 07:00 29 Endotracheal Tube 100 09/03/19 06:30 101 24 09/03/19 06:05 100.6 09/03/19 06:00 121 31 152/74 (100) 92 09/03/19 06:00 26 Mechanical Ventilator 100 09/03/19 05:56 121 31 182/77 (112) 89 09/03/19 05:53 120 31 180/72 (108) 88 09/03/19 05:30 106 28 166/79 (108) 100 09/03/19 05:00 101.4 93 29 137/68 (91) 100 09/03/19 05:00 24 Mechanical Ventilator 100 09/03/19 04:35 94 27 100 09/03/19 04:30 92 26 136/51 (79) 100 09/03/19 04:01 26 Mechanical Ventilator 80 09/03/19 04:00 80 09/03/19 04:00 100.6 98 34 147/89 (108) 88 09/03/19 04:00 Mechanical Ventilator 09/03/19 04:00 80 09/03/19 03:30 87 28 120/50 (73) 99 09/03/19 03:01 99 25 80 09/03/19 03:00 83 27 117/58 (77) 100 09/03/19 02:30 83 24 119/55 (76) 100 09/03/19 02:00 83 24 119/57 (77) 100 09/03/19 01:30 83 23 120/56 (77) 100 09/03/19 01:00 23 Mechanical Ventilator 100 09/03/19 01:00 82 24 121/61 (81) 99 09/03/19 00:31 92 23 100 Mechanical Ventilator 90 94 25 100 09/03/19 00:30 80 22 118/55 (76) 100 09/03/19 00:00 100 09/03/19 00:00 98.8 82 22 116/55 (75) 100 09/03/19 00:00 82 09/03/19 00:00 22 Mechanical Ventilator 100 09/03/19 00:00 Mechanical Ventilator 09/02/19 23:30 83 25 119/63 (81) 100 09/02/19 23:00 23 Mechanical Ventilator 100 09/02/19 23:00 91 22 127/63 (84) 100 09/02/19 22:59 91 24 100 09/02/19 22:30 92 19 121/68 (85) 99 I&O Intake and Output 09/02/19 09/03/19 19:00 07:00 Intake Total 1789 ml 1262 ml Output Total 850 ml 630 ml Balance 939 ml 632 ml Free Water 500 ml 90 ml IV Total 689 ml 572 ml Tube Feeding 600 ml 600 ml Output Urine Total 850 ml 630 ml # Bowel Movements 6 Dressing: other Wound: other Drains: other Cardiovascular: RSR Respiratory: decreased breath sounds Abdomen: soft, non-tender, present bowel sounds Extremities: no cyanosis Laboratory Tests Test 09/03/19 04:00 White Blood Count 8.3 K/UL (4.8-10.8) Red Blood Count 3.28 M/UL (4.70-6.10) L Hemoglobin 10.2 G/DL (14.2-18.0) L Hematocrit 30.7 % (42.0-52.0) L Mean Corpuscular Volume 94 FL (80-99) Mean Corpuscular Hemoglobin 31.2 PG (27.0-31.0) H Mean Corpuscular Hemoglobin Concent 33.3 G/DL (32.0-36.0) Red Cell Distribution Width 12.8 % (11.6-14.8) Platelet Count 256 K/UL (150-450) Mean Platelet Volume 7.8 FL (6.5-10.1) Neutrophils (%) (Auto) % (45.0-75.0) Lymphocytes (%) (Auto) % (20.0-45.0) Monocytes (%) (Auto) % (1.0-10.0) Eosinophils (%) (Auto) % (0.0-3.0) Basophils (%) (Auto) % (0.0-2.0) Differential Total Cells Counted 100 Neutrophils % (Manual) 84 % (45-75) H Lymphocytes % (Manual) 10 % (20-45) L Monocytes % (Manual) 6 % (1-10) Eosinophils % (Manual) 0 % (0-3) Basophils % (Manual) 0 % (0-2) Band Neutrophils 0 % (0-8) Nucleated Red Blood Cells 1 /100 WBC Platelet Estimate Adequate Platelet Morphology Normal Polychromasia 1+ Hypochromasia 1+ Sodium Level 141 MMOL/L (136-145) Potassium Level 5.0 MMOL/L (3.5-5.1) Chloride Level 103 MMOL/L (98-107) Carbon Dioxide Level 36 MMOL/L (21-32) H Anion Gap 2 mmol/L (5-15) L Blood Urea Nitrogen 25 mg/dL (7-18) H Creatinine 0.7 MG/DL (0.55-1.30) Estimat Glomerular Filtration Rate > 60 mL/min (>60) Glucose Level 173 MG/DL (74-106) H Calcium Level 7.7 MG/DL (8.5-10.1) L Plan Problems: (1) Decubitus skin ulcer Assessment & Plan: Patient presented on admission with Sacral DTPI. Base of wound is purple with maroon borders. Unstageable pressure injury Plantar L heel . Base of wound is necrotic with marginal erythema along borders. Non-blanching erythema R heel. Sacral DTPI now evolving since admission. Several opening within base of wound. No exudate noted. Open areas are moist and jason. Surrounding base of wound is purple with erythema along borders. Unstageable Pressure injury Plantar L heel. Base of wound is necrotic. Edges adherent to base of wound. Tx.Plan: Cleanse Sacral wound with Saline. Apply Therahoney. Apply Moisture Barrier Paste periwound. Cover with Optifoam drsg. Change every 3 days and prn. Apply Betadine to Plantar L heel. Cover with Optifoam drsg. Change every 3 days and prn. Apply Cavilon Skin Barrier R heel. Cover with Optifoam drsg. Change every 7 days and prn. Reposition at least every 2hours or as tolerated Off-load heels with pillow. Nutritional optimization will follow with recs air mattress once off isolation DAILY ESTIMATED NEEDS: Needs based on Critical care, Wounds/ 53kg abw 22-28 kcals/kg 2619-8125 total kcals 1.25-2 g protein/kg 66-106 g total protein 25-30 mL/kg 8652-3307 total fluid mLs NUTRITION DIAGNOSIS: * Swallowing difficulty R/T dysphagia as evidenced by PEG dep, s/p intubation, on GT feeding. * Increased kcal/prot needs R/T wound healing as evidenced by pt admitted w/ evolving DTPI sacral wound and unstageable lt heel wound. CURRENT TF:Glucerna 1.2 @50ml/hr x22 hrs ENTERAL NUTRITION RECOMMENDATIONS: Glucerna 1.2 @ 50ml/hr x 22 hrs (hold 1 hr before and after Dilantin QD) to provide 1100ml, 1320kcal, 66g prot, 886ml free water * Maintain Glucerna 1.2 for carb control, BGs elevated. * Hold 1 hr before and after Dilantin med * HOB over 30 degrees/ without IVF, H20 flush of 150ml q 6 hrs FOR 24 HRS TF RUN WITHOUT DILANTIN (Dilantin currently held) : okay to keep the same TF rate of Glucerna 1.2 @ 50ml/hr x 24 hrs to provide 1200ml, 1440kcal, 72g prot 966ml free water -> will still meet 100% est kcal/prot needs ADDITIONAL RECOMMENDATIONS: * Per SNF record, ht is 60", wt is 149lbs (08/14/19) Rec calibrated bedscale wt * Rec NISS w/ TF: BGs elevated, now on Solumedrol * Wound healing: add Vit C 500mg QD + Giancarlo 1pkt BID via PEG * Monitor lytes, replete as needed . (2) Multi-infarct dementia (3) Uncontrolled seizures (4) History of CVA (cerebrovascular accident) (5) Acute encephalopathy (6) Aspiration pneumonia Assessment & Plan: Interval worsening of aeration with increasing interstitial and patchy bilateral airspace disease. Findings may be on the basis of worsening CHF/pulmonary edema although multifocal pneumonia must also be considered. Endotracheal tube injection is a central line remain in place. 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 (7) Respiratory failure (8) Suspected 2019 novel coronavirus infection Assessment & Plan: testing (9) Abdominal distension Assessment & Plan: pending KUB +BM ulikely obstruction will monitor Sundeep Benavidez Sep 03, 2019 22:26
--- NOTE | 2019-09-03 23:00 | NUR ---
NURSE NOTES: No resp. distress noted. VSS.
[2019-09-04] VITALS (38 sets, daily range): BP systolic 117–148; BP diastolic 55–86
[2019-09-04] MEDS: Ipratropium Bromide Inhaler INH SCH ×5 (01:00→20:49)
[2019-09-04] MEDS: Albuterol 90mcg Inhaler 8gm INH SCH ×5 (01:00→20:49)
--- NOTE | 2019-09-04 01:00 | NUR ---
NURSE NOTES: Remained on SR with 1st degree AVB, Bp stable afebrile.
--- NOTE | 2019-09-04 01:00 | NUR ---
NURSE NOTES: Remained on SR with 1st degree
--- NOTE | 2019-09-04 03:00 | NUR ---
RT IJ central line drsg was changed. aseptically.
[2019-09-04] MEDS: fentaNYL Citrate 2500mcg in NS 250ml IV SCH ×2 (04:44→16:14)
--- NOTE | 2019-09-04 05:00 | NUR ---
NURSE NOTES: Complete bed bath with bed changed was done.
[2019-09-04 05:09] LABS: HEMOGLOBIN 9.6 G/DL (14.2-18.0); MEAN CORPUSCULAR VOLUME 93 FL (80-99); PLATELET COUNT 201 K/UL (150-450); WHITE BLOOD COUNT 9.2 K/UL (4.8-10.8)
[2019-09-04 05:25] LABS: ANION GAP 4 mmol/L (5-15); BLOOD UREA NITROGEN 26 mg/dL (7-18); CALCIUM 7.7 MG/DL (8.5-10.1); CARBON DIOXIDE 36 MMOL/L (21-32); CHLORIDE 105 MMOL/L (98-107); CREATININE 0.7 MG/DL (0.55-1.30); POTASSIUM 5.2 MMOL/L (3.5-5.1); SODIUM 144 MMOL/L (136-145)
[2019-09-04] MEDS: Meropenem 1 GM in NS 55 ML IVPB SCH ×3 (05:39→22:00)
--- NOTE | 2019-09-04 06:45 | NUR ---
NURSE NOTES: No resp. distress noted. Afebrile.
--- NOTE | 2019-09-04 07:18 | NUR ---
HAND-OFF: Report given to Johnson PAULSON.
--- NOTE | 2019-09-04 07:18 | NUR ---
NURSE NOTES: Received patient from Bozena PAULSON. Patient is sedated, RASS -2. Sinus Rhythm on the heart monitor, HR 94. Receiving oxygen via ET Tube 7.5, 25cm at the lip line, vent settings: AC 18, TV 450, FiO2 100%, PEEP 5. IV site is Right IJ TLC receiving Fentanyl at 200mcg/hr G-tube is intact and receiving Glucerna 1.2 at 50cc/hr. Swartz catheter is intact and draining. Bed is locked, placed in lowest position, side rails up x3, side rails padded, bed alarm on, call light within reach. Will continue to monitor.
--- NOTE | 2019-09-04 09:20 | General Progress Note ---
Assessment/Plan Assessment/Plan: 83YO M with HTN, HLD, COPD, CAD, Seizure disorder presenting with cough and shortness of breath. In the ED, patient was found to be tachycardic (130's) and tachypnic (33) and febrile at 101.2. #Hypoxemic acute respiratory failure 2/2 COVID #Septic shock #Covid19 positive #transaminitis - likely 2/2 to above, downtrending/stable #Fevers #MRSA pneumonia #Drug reaction/Red Man syndrome - resolved -Appreciate ICU care -Continue vent management per the ICU team, daily SBT -Cont. contact plus droplet isolation. -Continuous desk monitor. -s/p Plaquenil -08/25 CXR reviewed, worsening b/l infiltrates -08/27 CXR w/Interval worsening of aeration with increasing interstitial and patchy bilateral airspace disease -08/26 BCx NGTD -08/26 SCx - MRSA -ID following: linezolid, meropenem and fluconazole -d/w ID, fevers likely 2/2 COVID -Pulm/CCM eval appreciated -d/w sonDavid, , updated on POC and prognosis, discussed code status, states pt has an advance directive. Answered all questions to his satisfaction. #Hyperkalemia #Hypokalemia - resolved -ctm, replace PRN -remains elevated -Kayexalate x 1 -repeat BMP in AM #Abdominal distension - improved, Ileus -KUB reviewed -d/w general sx, likely ileus #History of Seizure disorder: -cont Dilantin and Keppra -Neurology following #Paroxysmal Atrial flutter with rapid ventricular response #Accelerated HTN - resolved #HLD #CAD #Eliquis use #elevated troponins likely 2/2 demand ischemia, down trending -MTP increased to 100 BID, hydralazine PRN -Eliquis 2.5 -Cardio following, recs appreciated #Sacral Decubitus Ulcer -general sx/wound care following -recs appreciated prognosis guarded I spent 74 minutes on this patient's case, and 40 mins was dedicated to critical care. Critical Care Services performed include: Telemetry Review Hemodynamic measurement interpretation Laboratory data review and interpretation Radiology image review and interpretation Ventilator setting review, management, and adjustment Discussion of patient's care with ICU team, ICU Nursing staff and/or consulting services Spent additional 30 mins on phone d/w son on POC and end of life care. Subjective Allergies: Coded Allergies: No Known Allergies (Unverified , 02/29/16) Subjective Follow up for acute hypoxic resp failure, septic shock, COVID-19 positive. Pt remains intubated. Low grade temp, Tachycardic. Objective Last 24 Hour Vital Signs Date Time Temp Pulse Resp B/P (MAP) Pulse Ox O2 Delivery O2 Flow Rate FiO2 09/04/19 08:00 Mechanical Ventilator 09/04/19 08:00 95 29 131/70 (90) 91 09/04/19 08:00 100 09/04/19 07:32 91 09/04/19 07:00 24 Mechanical Ventilator 100 09/04/19 07:00 95 29 132/70 (90) 92 09/04/19 06:30 92 30 09/04/19 06:00 98.8 91 35 123/74 (90) 94 09/04/19 06:00 28 Mechanical Ventilator 100 09/04/19 05:30 91 35 123/74 (90) 94 09/04/19 05:30 91 22 100 09/04/19 05:00 30 Mechanical Ventilator 100 09/04/19 05:00 91 34 147/67 (93) 93 09/04/19 04:44 24 Mechanical Ventilator 100 09/04/19 04:30 88 27 128/68 (88) 95 09/04/19 04:00 99.0 81 26 131/61 (84) 100 09/04/19 04:00 81 26 131/61 (84) 100 09/04/19 04:00 100 09/04/19 04:00 28 Mechanical Ventilator 100 09/04/19 04:00 89 09/04/19 04:00 Mechanical Ventilator 09/04/19 03:30 86 23 120/60 (80) 95 09/04/19 03:00 24 Mechanical Ventilator 100 09/04/19 03:00 83 25 128/63 (84) 97 09/04/19 02:30 80 20 121/55 (77) 100 09/04/19 02:00 22 Mechanical Ventilator 09/04/19 02:00 83 23 125/60 (81) 95 09/04/19 01:30 83 24 121/60 (80) 95 09/04/19 01:05 83 21 100 Mechanical Ventilator 100 84 21 100 09/04/19 01:00 84 22 117/63 (81) 95 09/04/19 01:00 22 Mechanical Ventilator 100 09/04/19 00:30 83 21 121/60 (80) 96 09/04/19 00:00 90 09/04/19 00:00 100 09/04/19 00:00 23 Mechanical Ventilator 100 09/04/19 00:00 Mechanical Ventilator 09/04/19 00:00 98.6 82 20 123/61 (81) 97 09/03/19 23:30 81 20 121/59 (79) 92 09/03/19 23:00 81 21 125/60 (81) 89 09/03/19 23:00 20 Mechanical Ventilator 100 09/03/19 22:30 84 22 90 09/03/19 22:00 Mechanical Ventilator 21.0 100 09/03/19 22:00 86 19 125/60 (81) 98 09/03/19 21:30 82 18 111/55 (73) 100 09/03/19 21:00 22 Mechanical Ventilator 100 09/03/19 21:00 84 18 113/55 (74) 100 09/03/19 20:41 84 116/61 09/03/19 20:30 85 19 116/61 (79) 100 09/03/19 20:00 95 09/03/19 20:00 100 09/03/19 20:00 97.8 83 18 128/65 (86) 100 09/03/19 20:00 21 Mechanical Ventilator 100 09/03/19 20:00 Mechanical Ventilator 09/03/19 19:59 89 23 100 Mechanical Ventilator 100 91 23 100 09/03/19 19:30 87 18 112/59 (76) 100 09/03/19 19:00 89 22 121/59 (79) 96 09/03/19 18:30 93 22 119/61 (80) 96 09/03/19 18:00 20 Endotracheal Tube 100 09/03/19 18:00 93 20 109/55 (73) 99 09/03/19 17:00 103 30 125/61 (82) 100 09/03/19 17:00 30 Endotracheal Tube 100 09/03/19 16:30 114 30 136/103 (114) 98 09/03/19 16:17 30 Endotracheal Tube 100 09/03/19 16:00 100 09/03/19 16:00 Mechanical Ventilator 09/03/19 16:00 25 Endotracheal Tube 100 09/03/19 16:00 91 25 125/69 (87) 100 09/03/19 15:57 90 22 100 09/03/19 15:30 90 22 115/61 (79) 100 09/03/19 15:28 98 09/03/19 15:00 94 23 123/62 (82) 97 09/03/19 15:00 23 Endotracheal Tube 100 09/03/19 15:00 94 23 123/62 (82) 97 09/03/19 14:00 23 Endotracheal Tube 100 09/03/19 14:00 96 22 123/79 (94) 98 09/03/19 13:00 23 Endotracheal Tube 100 09/03/19 13:00 99.6 97 23 120/64 (82) 97 09/03/19 12:00 22 Endotracheal Tube 100 09/03/19 12:00 100 09/03/19 12:00 Mechanical Ventilator 09/03/19 12:00 97 22 116/65 (82) 98 09/03/19 11:26 99 22 100 09/03/19 11:15 98 09/03/19 11:00 99 24 113/58 (76) 97 09/03/19 11:00 24 Endotracheal Tube 100 09/03/19 10:30 99 22 112/57 (75) 99 09/03/19 10:00 23 Endotracheal Tube 100 09/03/19 10:00 99 23 119/62 (81) 99 09/03/19 09:30 108 24 114/62 (79) 98 Intake and Output 09/03/19 09/04/19 19:00 07:00 Intake Total 1355.000 ml 1070 ml Output Total 755 ml 670 ml Balance 600.000 ml 400 ml Free Water 90 ml IV Total 755.000 ml 330 ml Tube Feeding 600 ml 650 ml Output Urine Total 755 ml 670 ml # Bowel Movements 1 4 Laboratory Tests 09/04/19 04:00: White Blood Count 9.2, Red Blood Count 3.00L, Hemoglobin 9.6L, Hematocrit 28.0L , Mean Corpuscular Volume 93, Mean Corpuscular Hemoglobin 31.8H, Mean Corpuscular Hemoglobin Concent 34.1, Red Cell Distribution Width 13.0, Platelet Count 201, Mean Platelet Volume 8.1, Neutrophils (%) (Auto) , Lymphocytes (%) ( Auto) , Monocytes (%) (Auto) , Eosinophils (%) (Auto) , Basophils (%) (Auto) , Neutrophils % (Manual) [Pending], Lymphocytes % (Manual) [Pending], Platelet Estimate [Pending], Platelet Morphology [Pending] 09/04/19 04:30: Sodium Level 144, Potassium Level 5.2H, Chloride Level 105, Carbon Dioxide Level 36H, Anion Gap 4L, Blood Urea Nitrogen 26H, Creatinine 0.7, Estimat Glomerular Filtration Rate > 60, Glucose Level 210H, Calcium Level 7.7L Height (Feet): 5 Height (Inches): 8.00 Weight (Pounds): 169 Objective General: Intubated, appears comfortable HEENT: NCAT CV: Irregularly irregular, tachycardic on monitor, HR 90's-110's Pulm: b/l rise in lungs Ext: heels wrapped in bandages Liliana Leal M.D. Sep 04, 2019 09:20
[2019-09-04] MEDS ORDERED: Sodium Polystyrene Sulfonate 15gm Powder ORAL SCH (09:30)
[2019-09-04] MEDS: Solu-MEDROL 40mg Inj IVP SCH ×2 (09:38→20:32)
[2019-09-04] MEDS: Eliquis 2.5mg tablet GT SCH ×2 (09:38→17:00)
[2019-09-04] MEDS: Phenytoin Susp 100mg/4ml GT SCH (09:38)
[2019-09-04] MEDS: Metoprolol Tartrate 100mg tab GT SCH ×2 (09:39→20:32)
[2019-09-04] MEDS: Pantoprazole Inj IVP SCH (09:39)
[2019-09-04] MEDS: levETIRAcetam 500mg/5ml Liquid GT SCH ×2 (09:39→20:31)
--- NOTE | 2019-09-04 10:15 | NUR ---
NURSE NOTES: Patient turned and repositioned, oral care given, medications given as prescribed: no adverse reaction noted. Endotracheal suction given, no sputum removed.
--- NOTE | 2019-09-04 10:50 | NUR ---
NURSE NOTES: Patient is desaturating O2 saturation is 88%, vent settings are AC 18 TV 450 FiO2 100%, PEEP 10. Dr. Nash was contacted and informed, orders received for stat chest x-ray and vent settings AC 18, TV 450, FiO2 100%, PEEP 12. Patient is tachypneic RR 30-38, O2 saturation 90-91%. Will continue to monitor.
--- NOTE | 2019-09-04 11:10 | Cardiac Electrophysiology PN ---
Assessment/Plan Assessment/Plan 1. Paroxysmal Atrial flutter with rapid ventricular response. In SR with first degree AVB On Eliquis 2.5 mg bid and metoprolol 100 mg bid. 2. Accelerated hypertension with blood pressure of 200. Continue metoprolol 100 mg b.i.d. and p.r.n. IV hydralazine. 3. 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 4. Respiratory failure due to COVID-19 pneumonia. On the Vent on 100% fio2 Completed hydroxychloroquine. EKG QT 440 . 5. Sepsis on Solu-Medrol and Meropenem per ID 6. History of CVA. 7. Multi-infarct dementia. 8. History of seizures. 9. Abdominal distension 10. S/P PEG DW RN Subjective Subjective Intubated in ICU on 100% Fio2 and PEEP 12. Covid is positive. In SR off pressors. Had atrial fib with RVR 120s and Lopressor increased to 100 bid . PEG feeding ongoing. Full code Objective Last 24 Hour Vital Signs Date Time Temp Pulse Resp B/P (MAP) Pulse Ox O2 Delivery O2 Flow Rate FiO2 09/04/19 09:39 95 131/70 09/04/19 08:00 Mechanical Ventilator 09/04/19 08:00 95 29 131/70 (90) 91 09/04/19 08:00 100 09/04/19 07:32 91 09/04/19 07:00 24 Mechanical Ventilator 100 09/04/19 07:00 95 29 132/70 (90) 92 09/04/19 06:30 92 30 09/04/19 06:00 98.8 91 35 123/74 (90) 94 09/04/19 06:00 28 Mechanical Ventilator 100 09/04/19 05:30 91 35 123/74 (90) 94 09/04/19 05:30 91 22 100 09/04/19 05:00 30 Mechanical Ventilator 100 09/04/19 05:00 91 34 147/67 (93) 93 09/04/19 04:44 24 Mechanical Ventilator 100 09/04/19 04:30 88 27 128/68 (88) 95 09/04/19 04:00 99.0 81 26 131/61 (84) 100 09/04/19 04:00 81 26 131/61 (84) 100 09/04/19 04:00 100 09/04/19 04:00 28 Mechanical Ventilator 100 09/04/19 04:00 89 09/04/19 04:00 Mechanical Ventilator 09/04/19 03:30 86 23 120/60 (80) 95 09/04/19 03:00 24 Mechanical Ventilator 100 09/04/19 03:00 83 25 128/63 (84) 97 09/04/19 02:30 80 20 121/55 (77) 100 09/04/19 02:00 22 Mechanical Ventilator 09/04/19 02:00 83 23 125/60 (81) 95 09/04/19 01:30 83 24 121/60 (80) 95 09/04/19 01:05 83 21 100 Mechanical Ventilator 100 84 21 100 09/04/19 01:00 84 22 117/63 (81) 95 09/04/19 01:00 22 Mechanical Ventilator 100 09/04/19 00:30 83 21 121/60 (80) 96 09/04/19 00:00 90 09/04/19 00:00 100 09/04/19 00:00 23 Mechanical Ventilator 100 09/04/19 00:00 Mechanical Ventilator 09/04/19 00:00 98.6 82 20 123/61 (81) 97 09/03/19 23:30 81 20 121/59 (79) 92 09/03/19 23:00 81 21 125/60 (81) 89 09/03/19 23:00 20 Mechanical Ventilator 100 09/03/19 22:30 84 22 90 09/03/19 22:00 Mechanical Ventilator 21.0 100 09/03/19 22:00 86 19 125/60 (81) 98 09/03/19 21:30 82 18 111/55 (73) 100 09/03/19 21:00 22 Mechanical Ventilator 100 09/03/19 21:00 84 18 113/55 (74) 100 09/03/19 20:41 84 116/61 09/03/19 20:30 85 19 116/61 (79) 100 09/03/19 20:00 95 09/03/19 20:00 100 09/03/19 20:00 97.8 83 18 128/65 (86) 100 09/03/19 20:00 21 Mechanical Ventilator 100 09/03/19 20:00 Mechanical Ventilator 09/03/19 19:59 89 23 100 Mechanical Ventilator 100 91 23 100 09/03/19 19:30 87 18 112/59 (76) 100 09/03/19 19:00 89 22 121/59 (79) 96 09/03/19 18:30 93 22 119/61 (80) 96 09/03/19 18:00 20 Endotracheal Tube 100 09/03/19 18:00 93 20 109/55 (73) 99 09/03/19 17:00 103 30 125/61 (82) 100 09/03/19 17:00 30 Endotracheal Tube 100 09/03/19 16:30 114 30 136/103 (114) 98 09/03/19 16:17 30 Endotracheal Tube 100 09/03/19 16:00 100 09/03/19 16:00 Mechanical Ventilator 09/03/19 16:00 25 Endotracheal Tube 100 09/03/19 16:00 91 25 125/69 (87) 100 09/03/19 15:57 90 22 100 09/03/19 15:30 90 22 115/61 (79) 100 09/03/19 15:28 98 09/03/19 15:00 94 23 123/62 (82) 97 09/03/19 15:00 23 Endotracheal Tube 100 09/03/19 15:00 94 23 123/62 (82) 97 09/03/19 14:00 23 Endotracheal Tube 100 09/03/19 14:00 96 22 123/79 (94) 98 09/03/19 13:00 23 Endotracheal Tube 100 09/03/19 13:00 99.6 97 23 120/64 (82) 97 09/03/19 12:00 22 Endotracheal Tube 100 09/03/19 12:00 100 09/03/19 12:00 Mechanical Ventilator 09/03/19 12:00 97 22 116/65 (82) 98 09/03/19 11:26 99 22 100 09/03/19 11:15 98 Intake and Output 09/03/19 09/04/19 19:00 07:00 Intake Total 1355.000 ml 1070 ml Output Total 755 ml 670 ml Balance 600.000 ml 400 ml Free Water 90 ml IV Total 755.000 ml 330 ml Tube Feeding 600 ml 650 ml Output Urine Total 755 ml 670 ml # Bowel Movements 1 4 Laboratory Tests Test 09/04/19 04:00 09/04/19 04:30 White Blood Count 9.2 K/UL (4.8-10.8) Red Blood Count 3.00 M/UL (4.70-6.10) L Hemoglobin 9.6 G/DL (14.2-18.0) L Hematocrit 28.0 % (42.0-52.0) L Mean Corpuscular Volume 93 FL (80-99) Mean Corpuscular Hemoglobin 31.8 PG (27.0-31.0) H Mean Corpuscular Hemoglobin Concent 34.1 G/DL (32.0-36.0) Red Cell Distribution Width 13.0 % (11.6-14.8) Platelet Count 201 K/UL (150-450) Mean Platelet Volume 8.1 FL (6.5-10.1) Neutrophils (%) (Auto) % (45.0-75.0) Lymphocytes (%) (Auto) % (20.0-45.0) Monocytes (%) (Auto) % (1.0-10.0) Eosinophils (%) (Auto) % (0.0-3.0) Basophils (%) (Auto) % (0.0-2.0) Differential Total Cells Counted 100 Neutrophils % (Manual) 78 % (45-75) H Lymphocytes % (Manual) 9 % (20-45) L Monocytes % (Manual) 7 % (1-10) Eosinophils % (Manual) 0 % (0-3) Basophils % (Manual) 0 % (0-2) Metamyelocytes % 1 % (0-0) H Myelocytes % 3 % (0-0) H Band Neutrophils 2 % (0-8) Platelet Estimate Adequate Platelet Morphology Normal Sodium Level 144 MMOL/L (136-145) Potassium Level 5.2 MMOL/L (3.5-5.1) H Chloride Level 105 MMOL/L (98-107) Carbon Dioxide Level 36 MMOL/L (21-32) H Anion Gap 4 mmol/L (5-15) L Blood Urea Nitrogen 26 mg/dL (7-18) H Creatinine 0.7 MG/DL (0.55-1.30) Estimat Glomerular Filtration Rate > 60 mL/min (>60) Glucose Level 210 MG/DL (74-106) H Calcium Level 7.7 MG/DL (8.5-10.1) L Objective HEAD AND NECK: No JVD. Orally intubated. LUNGS: Coarse rhonchi. CARDIOVASCULAR: Irregular S1 and S2 with no gallop or murmur. ABDOMEN: Soft.PEG intact EXTREMITIES: 1 plus pitting edema. Paul Robles MD Sep 04, 2019 11:10
--- NOTE | 2019-09-04 11:16 | Pulmonolgy Critical Care Note ---
Critical Care - Asmt/Plan Problems: (1) Respiratory failure (2) Suspected 2019 novel coronavirus infection (3) History of CVA (cerebrovascular accident) (4) Acute encephalopathy (5) Multi-infarct dementia (6) Uncontrolled seizures (7) Atrial fibrillation and flutter Assessment/Plan: STAT CXR STAT ABG Continue ventilatory support/hold off on weaning ---> AC 16 TV 450, PEEP 12, wean O2 Monitor gas exchange Proning 12hr on/off (if able) MDI in line with Vent Continue SM 20 IV BID (D11) and taper Completed 5 days of Plaquenil Zyvox/Candis/Flucon per ID Monitor CRP and ferritin D/W pharmacy RE: Tociluzumab - per pharmacist on national shortage and cannot get, will continue to follow up Remdesivir limited to trial, cannot get under compassionate care Monitor volumes and renal function ICU sedation: Fent gtt for RASS -2 with PRN Versed F/U neuro recs, continue AED's Monitor LFT's TF's DVT Px: Elielena FC, continue to discuss GOC Disposition: keep in ICU Time Spent (Minutes): 40 Notes Reviewed: employee services manager, cardio, ID, neuro Discussed with: nurses, consultants Critical Care - Objective Last 24 Hour Vital Signs Date Time Temp Pulse Resp B/P (MAP) Pulse Ox O2 Delivery O2 Flow Rate FiO2 09/04/19 11:00 100 32 136/83 (100) 89 09/04/19 10:30 100 33 146/71 (96) 90 09/04/19 10:00 100 34 123/65 (84) 89 09/04/19 09:39 95 131/70 09/04/19 09:30 92 28 129/62 (84) 100 09/04/19 09:00 99.5 97 26 137/68 (91) 100 09/04/19 08:00 Mechanical Ventilator 09/04/19 08:00 95 29 131/70 (90) 91 09/04/19 08:00 100 09/04/19 07:32 91 09/04/19 07:00 24 Mechanical Ventilator 100 09/04/19 07:00 95 29 132/70 (90) 92 09/04/19 06:30 92 30 09/04/19 06:00 98.8 91 35 123/74 (90) 94 4/22/20 06:00 28 Mechanical Ventilator 100 09/04/19 05:30 91 35 123/74 (90) 94 09/04/19 05:30 91 22 100 09/04/19 05:00 30 Mechanical Ventilator 100 09/04/19 05:00 91 34 147/67 (93) 93 09/04/19 04:44 24 Mechanical Ventilator 100 09/04/19 04:30 88 27 128/68 (88) 95 09/04/19 04:00 99.0 81 26 131/61 (84) 100 09/04/19 04:00 81 26 131/61 (84) 100 09/04/19 04:00 100 09/04/19 04:00 28 Mechanical Ventilator 100 09/04/19 04:00 89 09/04/19 04:00 Mechanical Ventilator 09/04/19 03:30 86 23 120/60 (80) 95 09/04/19 03:00 24 Mechanical Ventilator 100 09/04/19 03:00 83 25 128/63 (84) 97 09/04/19 02:30 80 20 121/55 (77) 100 09/04/19 02:00 22 Mechanical Ventilator 09/04/19 02:00 83 23 125/60 (81) 95 09/04/19 01:30 83 24 121/60 (80) 95 09/04/19 01:05 83 21 100 Mechanical Ventilator 100 84 21 100 09/04/19 01:00 84 22 117/63 (81) 95 09/04/19 01:00 22 Mechanical Ventilator 100 09/04/19 00:30 83 21 121/60 (80) 96 09/04/19 00:00 90 09/04/19 00:00 100 09/04/19 00:00 23 Mechanical Ventilator 100 09/04/19 00:00 Mechanical Ventilator 09/04/19 00:00 98.6 82 20 123/61 (81) 97 09/03/19 23:30 81 20 121/59 (79) 92 09/03/19 23:00 81 21 125/60 (81) 89 09/03/19 23:00 20 Mechanical Ventilator 100 09/03/19 22:30 84 22 90 09/03/19 22:00 Mechanical Ventilator 21.0 100 09/03/19 22:00 86 19 125/60 (81) 98 09/03/19 21:30 82 18 111/55 (73) 100 09/03/19 21:00 22 Mechanical Ventilator 100 09/03/19 21:00 84 18 113/55 (74) 100 09/03/19 20:41 84 116/61 09/03/19 20:30 85 19 116/61 (79) 100 09/03/19 20:00 95 09/03/19 20:00 100 09/03/19 20:00 97.8 83 18 128/65 (86) 100 09/03/19 20:00 21 Mechanical Ventilator 100 09/03/19 20:00 Mechanical Ventilator 09/03/19 19:59 89 23 100 Mechanical Ventilator 100 91 23 100 09/03/19 19:30 87 18 112/59 (76) 100 09/03/19 19:00 89 22 121/59 (79) 96 09/03/19 18:30 93 22 119/61 (80) 96 09/03/19 18:00 20 Endotracheal Tube 100 09/03/19 18:00 93 20 109/55 (73) 99 09/03/19 17:00 103 30 125/61 (82) 100 09/03/19 17:00 30 Endotracheal Tube 100 09/03/19 16:30 114 30 136/103 (114) 98 09/03/19 16:17 30 Endotracheal Tube 100 09/03/19 16:00 100 09/03/19 16:00 Mechanical Ventilator 09/03/19 16:00 25 Endotracheal Tube 100 09/03/19 16:00 91 25 125/69 (87) 100 09/03/19 15:57 90 22 100 09/03/19 15:30 90 22 115/61 (79) 100 09/03/19 15:28 98 09/03/19 15:00 94 23 123/62 (82) 97 09/03/19 15:00 23 Endotracheal Tube 100 09/03/19 15:00 94 23 123/62 (82) 97 09/03/19 14:00 23 Endotracheal Tube 100 09/03/19 14:00 96 22 123/79 (94) 98 09/03/19 13:00 23 Endotracheal Tube 100 09/03/19 13:00 99.6 97 23 120/64 (82) 97 09/03/19 12:00 22 Endotracheal Tube 100 09/03/19 12:00 100 09/03/19 12:00 Mechanical Ventilator 09/03/19 12:00 97 22 116/65 (82) 98 09/03/19 11:26 99 22 100 09/03/19 11:15 98 Status: sedated - int Condition: other - ETT OGT Lungs: rhonchi Heart: HR/BP unstable Critical Care - Subjective ROS Limited/Unobtainable: Yes ICU Day: 13 Intubation Day: 13 Interval Events: progressively hypoxemic this am FiO2 100 PEEP inc 12 P/Pl high 30s Nothing comes up with suctioning ABG and CXR pending Condition: critical EKG Rhythm: Atrial Fibrillation FI02: 100 Vent Support Breath Rate: 18 Vent Support Mode: AC Vent Tidal Volume: 450 Sputum Amount: Small PEEP: 10.0 PIP: 40 Secretions: small scant Fluids: SLIV Drips: Fent 200 Tube Feeding Amount: 50 I&O: Intake and Output 09/03/19 09/04/19 19:00 07:00 Intake Total 1355.000 ml 1070 ml Output Total 755 ml 670 ml Balance 600.000 ml 400 ml Free Water 90 ml IV Total 755.000 ml 330 ml Tube Feeding 600 ml 650 ml Output Urine Total 755 ml 670 ml # Bowel Movements 1 4 Subjective: REYMUNDO ET-Tube: 7.5 ET Position: 25 Labs: Laboratory Tests Test 09/04/19 04:00 09/04/19 04:30 09/04/19 11:09 White Blood Count 9.2 K/UL (4.8-10.8) Red Blood Count 3.00 M/UL (4.70-6.10) L Hemoglobin 9.6 G/DL (14.2-18.0) L Hematocrit 28.0 % (42.0-52.0) L Mean Corpuscular Volume 93 FL (80-99) Mean Corpuscular Hemoglobin 31.8 PG (27.0-31.0) H Mean Corpuscular Hemoglobin Concent 34.1 G/DL (32.0-36.0) Red Cell Distribution Width 13.0 % (11.6-14.8) Platelet Count 201 K/UL (150-450) Mean Platelet Volume 8.1 FL (6.5-10.1) Neutrophils (%) (Auto) % (45.0-75.0) Lymphocytes (%) (Auto) % (20.0-45.0) Monocytes (%) (Auto) % (1.0-10.0) Eosinophils (%) (Auto) % (0.0-3.0) Basophils (%) (Auto) % (0.0-2.0) Differential Total Cells Counted 100 Neutrophils % (Manual) 78 % (45-75) H Lymphocytes % (Manual) 9 % (20-45) L Monocytes % (Manual) 7 % (1-10) Eosinophils % (Manual) 0 % (0-3) Basophils % (Manual) 0 % (0-2) Metamyelocytes % 1 % (0-0) H Myelocytes % 3 % (0-0) H Band Neutrophils 2 % (0-8) Platelet Estimate Adequate Platelet Morphology Normal Sodium Level 144 MMOL/L (136-145) Potassium Level 5.2 MMOL/L (3.5-5.1) H Chloride Level 105 MMOL/L (98-107) Carbon Dioxide Level 36 MMOL/L (21-32) H Anion Gap 4 mmol/L (5-15) L Blood Urea Nitrogen 26 mg/dL (7-18) H Creatinine 0.7 MG/DL (0.55-1.30) Estimat Glomerular Filtration Rate > 60 mL/min (>60) Glucose Level 210 MG/DL (74-106) H Calcium Level 7.7 MG/DL (8.5-10.1) L Arterial Blood pH Pending Arterial Blood Partial Pressure CO2 Pending Arterial Blood Partial Pressure O2 Pending Arterial Blood HCO3 Pending Arterial Blood Oxygen Saturation Pending Arterial Blood Base Excess Pending Jag Test Pending David Nash MD Sep 04, 2019 11:16
--- NOTE | 2019-09-04 12:05 | NUR ---
RADIOLOGY DEPT., CHEST X-RAY DONE.-P.DYE
--- NOTE | 2019-09-04 12:23 | Diagnostic Imaging Report ---
Indication: Dyspnea Technique: One view of the chest Comparison: 09/03/2019 Findings: Bilateral extensive dense consolidation appears slightly worse than on the previous study. Stable satisfactory position of endotracheal tube and right jugular central venous catheter. The heart size is borderline enlarged. Impression: Worsening bilateral infiltrates, over one day
--- NOTE | 2019-09-04 12:31 | Surgery Progress Note ---
Surgery Progress Note Subjective Additional Comments ill appearing labs noted exam stable Objective Last 24 Hour Vital Signs Date Time Temp Pulse Resp B/P (MAP) Pulse Ox O2 Delivery O2 Flow Rate FiO2 09/04/19 12:00 104 09/04/19 12:00 100 09/04/19 12:00 Mechanical Ventilator 09/04/19 12:00 104 33 148/68 (94) 93 09/04/19 12:00 102 33 148/68 (94) 93 09/04/19 11:30 101 32 141/70 (93) 91 09/04/19 11:00 100 32 136/83 (100) 89 09/04/19 10:40 101 22 90 Mechanical Ventilator 100 92 29 100 09/04/19 10:30 100 33 146/71 (96) 90 09/04/19 10:00 34 Endotracheal Tube 100 09/04/19 10:00 100 34 123/65 (84) 89 09/04/19 09:39 95 131/70 09/04/19 09:30 92 28 129/62 (84) 100 09/04/19 09:00 26 Endotracheal Tube 100 09/04/19 09:00 99.5 97 26 137/68 (91) 100 09/04/19 08:10 92 31 100 09/04/19 08:00 29 Endotracheal Tube 100 09/04/19 08:00 Mechanical Ventilator 09/04/19 08:00 95 29 131/70 (90) 91 09/04/19 08:00 100 09/04/19 07:32 91 09/04/19 07:00 24 Mechanical Ventilator 100 09/04/19 07:00 95 29 132/70 (90) 92 09/04/19 06:30 92 30 09/04/19 06:00 98.8 91 35 123/74 (90) 94 09/04/19 06:00 28 Mechanical Ventilator 100 09/04/19 05:30 91 35 123/74 (90) 94 09/04/19 05:30 91 22 100 09/04/19 05:00 30 Mechanical Ventilator 100 09/04/19 05:00 91 34 147/67 (93) 93 09/04/19 04:44 24 Mechanical Ventilator 100 09/04/19 04:30 88 27 128/68 (88) 95 09/04/19 04:00 99.0 81 26 131/61 (84) 100 09/04/19 04:00 81 26 131/61 (84) 100 09/04/19 04:00 100 09/04/19 04:00 28 Mechanical Ventilator 100 09/04/19 04:00 89 09/04/19 04:00 Mechanical Ventilator 09/04/19 03:30 86 23 120/60 (80) 95 09/04/19 03:00 24 Mechanical Ventilator 100 09/04/19 03:00 83 25 128/63 (84) 97 09/04/19 02:30 80 20 121/55 (77) 100 09/04/19 02:00 22 Mechanical Ventilator 09/04/19 02:00 83 23 125/60 (81) 95 09/04/19 01:30 83 24 121/60 (80) 95 09/04/19 01:05 83 21 100 Mechanical Ventilator 100 84 21 100 09/04/19 01:00 84 22 117/63 (81) 95 09/04/19 01:00 22 Mechanical Ventilator 100 09/04/19 00:30 83 21 121/60 (80) 96 09/04/19 00:00 90 09/04/19 00:00 100 09/04/19 00:00 23 Mechanical Ventilator 100 09/04/19 00:00 Mechanical Ventilator 09/04/19 00:00 98.6 82 20 123/61 (81) 97 09/03/19 23:30 81 20 121/59 (79) 92 09/03/19 23:00 81 21 125/60 (81) 89 09/03/19 23:00 20 Mechanical Ventilator 100 09/03/19 22:30 84 22 90 09/03/19 22:00 Mechanical Ventilator 21.0 100 09/03/19 22:00 86 19 125/60 (81) 98 09/03/19 21:30 82 18 111/55 (73) 100 09/03/19 21:00 22 Mechanical Ventilator 100 09/03/19 21:00 84 18 113/55 (74) 100 09/03/19 20:41 84 116/61 09/03/19 20:30 85 19 116/61 (79) 100 09/03/19 20:00 95 09/03/19 20:00 100 09/03/19 20:00 97.8 83 18 128/65 (86) 100 09/03/19 20:00 21 Mechanical Ventilator 100 09/03/19 20:00 Mechanical Ventilator 09/03/19 19:59 89 23 100 Mechanical Ventilator 100 91 23 100 09/03/19 19:30 87 18 112/59 (76) 100 09/03/19 19:00 89 22 121/59 (79) 96 09/03/19 18:30 93 22 119/61 (80) 96 09/03/19 18:00 20 Endotracheal Tube 100 09/03/19 18:00 93 20 109/55 (73) 99 09/03/19 17:00 103 30 125/61 (82) 100 09/03/19 17:00 30 Endotracheal Tube 100 09/03/19 16:30 114 30 136/103 (114) 98 09/03/19 16:17 30 Endotracheal Tube 100 09/03/19 16:00 100 09/03/19 16:00 Mechanical Ventilator 09/03/19 16:00 25 Endotracheal Tube 100 09/03/19 16:00 91 25 125/69 (87) 100 09/03/19 15:57 90 22 100 09/03/19 15:30 90 22 115/61 (79) 100 09/03/19 15:28 98 09/03/19 15:00 94 23 123/62 (82) 97 09/03/19 15:00 23 Endotracheal Tube 100 09/03/19 15:00 94 23 123/62 (82) 97 09/03/19 14:00 23 Endotracheal Tube 100 09/03/19 14:00 96 22 123/79 (94) 98 09/03/19 13:00 23 Endotracheal Tube 100 09/03/19 13:00 99.6 97 23 120/64 (82) 97 I&O Intake and Output 09/03/19 09/04/19 19:00 07:00 Intake Total 1355.000 ml 1070 ml Output Total 755 ml 670 ml Balance 600.000 ml 400 ml Free Water 90 ml IV Total 755.000 ml 330 ml Tube Feeding 600 ml 650 ml Output Urine Total 755 ml 670 ml # Bowel Movements 1 4 Dressing: other Wound: other Drains: other Cardiovascular: RSR Respiratory: decreased breath sounds Abdomen: soft, non-tender, present bowel sounds Extremities: no cyanosis Laboratory Tests Test 09/04/19 04:00 09/04/19 04:30 09/04/19 11:09 White Blood Count 9.2 K/UL (4.8-10.8) Red Blood Count 3.00 M/UL (4.70-6.10) L Hemoglobin 9.6 G/DL (14.2-18.0) L Hematocrit 28.0 % (42.0-52.0) L Mean Corpuscular Volume 93 FL (80-99) Mean Corpuscular Hemoglobin 31.8 PG (27.0-31.0) H Mean Corpuscular Hemoglobin Concent 34.1 G/DL (32.0-36.0) Red Cell Distribution Width 13.0 % (11.6-14.8) Platelet Count 201 K/UL (150-450) Mean Platelet Volume 8.1 FL (6.5-10.1) Neutrophils (%) (Auto) % (45.0-75.0) Lymphocytes (%) (Auto) % (20.0-45.0) Monocytes (%) (Auto) % (1.0-10.0) Eosinophils (%) (Auto) % (0.0-3.0) Basophils (%) (Auto) % (0.0-2.0) Differential Total Cells Counted 100 Neutrophils % (Manual) 78 % (45-75) H Lymphocytes % (Manual) 9 % (20-45) L Monocytes % (Manual) 7 % (1-10) Eosinophils % (Manual) 0 % (0-3) Basophils % (Manual) 0 % (0-2) Metamyelocytes % 1 % (0-0) H Myelocytes % 3 % (0-0) H Band Neutrophils 2 % (0-8) Platelet Estimate Adequate Platelet Morphology Normal Sodium Level 144 MMOL/L (136-145) Potassium Level 5.2 MMOL/L (3.5-5.1) H Chloride Level 105 MMOL/L (98-107) Carbon Dioxide Level 36 MMOL/L (21-32) H Anion Gap 4 mmol/L (5-15) L Blood Urea Nitrogen 26 mg/dL (7-18) H Creatinine 0.7 MG/DL (0.55-1.30) Estimat Glomerular Filtration Rate > 60 mL/min (>60) Glucose Level 210 MG/DL (74-106) H Calcium Level 7.7 MG/DL (8.5-10.1) L Arterial Blood pH 7.400 (7.350-7.450) Arterial Blood Partial Pressure CO2 60.0 mmHg (35.0-45.0) *H Arterial Blood Partial Pressure O2 48.7 mmHg (75.0-100.0) Arterial Blood HCO3 36.3 mmol/L (22.0-26.0) H Arterial Blood Oxygen Saturation 84.6 % (95-100) *L Arterial Blood Base Excess 9.8 (-2-2) *H Jag Test Positive Plan Problems: (1) Decubitus skin ulcer Assessment & Plan: Patient presented on admission with Sacral DTPI. Base of wound is purple with maroon borders. Unstageable pressure injury Plantar L heel . Base of wound is necrotic with marginal erythema along borders. Non-blanching erythema R heel. Sacral DTPI now evolving since admission. Several opening within base of wound. No exudate noted. Open areas are moist and jason. Surrounding base of wound is purple with erythema along borders. Unstageable Pressure injury Plantar L heel. Base of wound is necrotic. Edges adherent to base of wound. Tx.Plan: Cleanse Sacral wound with Saline. Apply Therahoney. Apply Moisture Barrier Paste periwound. Cover with Optifoam drsg. Change every 3 days and prn. Apply Betadine to Plantar L heel. Cover with Optifoam drsg. Change every 3 days and prn. Apply Cavilon Skin Barrier R heel. Cover with Optifoam drsg. Change every 7 days and prn. Reposition at least every 2hours or as tolerated Off-load heels with pillow. Nutritional optimization will follow with recs air mattress once off isolation DAILY ESTIMATED NEEDS: Needs based on Critical care, Wounds/ 53kg abw 22-28 kcals/kg 9176-4611 total kcals 1.25-2 g protein/kg 66-106 g total protein 25-30 mL/kg 4390-9617 total fluid mLs NUTRITION DIAGNOSIS: * Swallowing difficulty R/T dysphagia as evidenced by PEG dep, s/p intubation, on GT feeding. * Increased kcal/prot needs R/T wound healing as evidenced by pt admitted w/ evolving DTPI sacral wound and unstageable lt heel wound. CURRENT TF:Glucerna 1.2 @50ml/hr x22 hrs ENTERAL NUTRITION RECOMMENDATIONS: Glucerna 1.2 @ 50ml/hr x 22 hrs (hold 1 hr before and after Dilantin QD) to provide 1100ml, 1320kcal, 66g prot, 886ml free water * Maintain Glucerna 1.2 for carb control, BGs elevated. * Hold 1 hr before and after Dilantin med * HOB over 30 degrees/ without IVF, H20 flush of 150ml q 6 hrs FOR 24 HRS TF RUN WITHOUT DILANTIN (Dilantin currently held) : okay to keep the same TF rate of Glucerna 1.2 @ 50ml/hr x 24 hrs to provide 1200ml, 1440kcal, 72g prot 966ml free water -> will still meet 100% est kcal/prot needs ADDITIONAL RECOMMENDATIONS: * Per SNF record, ht is 60", wt is 149lbs (08/14/19) Rec calibrated bedscale wt * Rec NISS w/ TF: BGs elevated, now on Solumedrol * Wound healing: add Vit C 500mg QD + Giancarlo 1pkt BID via PEG * Monitor lytes, replete as needed . (2) Multi-infarct dementia (3) Uncontrolled seizures (4) History of CVA (cerebrovascular accident) (5) Acute encephalopathy (6) Aspiration pneumonia Assessment & Plan: Interval worsening of aeration with increasing interstitial and patchy bilateral airspace disease. Findings may be on the basis of worsening CHF/pulmonary edema although multifocal pneumonia must also be considered. Endotracheal tube injection is a central line remain in place. 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 (7) Respiratory failure (8) Suspected 2019 novel coronavirus infection Assessment & Plan: testing ? (9) Abdominal distension Assessment & Plan: pending KUB +BM ulikely obstruction will monitor Sundeep Benavidez Sep 04, 2019 12:31
--- NOTE | 2019-09-04 14:18 | NUR ---
NURSE NOTES: Patient's axillary temperature was 99.8 degrees Fahrenheit, placed ice packs on patient, and gave 500cc of cold water via G-tube. Patient turned and repositioned, oral care given. Will continue to monitor.
--- NOTE | 2019-09-04 18:56 | Neurology Progress Note ---
Interim History Interim History ROS Limited/Unobtainable: Yes Interim History intubated, sedated Objective Physical Exam Last Vital Signs Date Time Temp Pulse Resp B/P (MAP) Pulse Ox O2 Delivery O2 Flow Rate FiO2 09/04/19 18:00 27 Endotracheal Tube 100 09/04/19 18:00 97 133/66 (88) 96 09/04/19 16:14 21.0 09/04/19 16:00 99.8 Laboratory Tests Test 09/04/19 04:00 09/04/19 04:30 09/04/19 11:09 White Blood Count 9.2 K/UL (4.8-10.8) Red Blood Count 3.00 M/UL (4.70-6.10) L Hemoglobin 9.6 G/DL (14.2-18.0) L Hematocrit 28.0 % (42.0-52.0) L Mean Corpuscular Volume 93 FL (80-99) Mean Corpuscular Hemoglobin 31.8 PG (27.0-31.0) H Mean Corpuscular Hemoglobin Concent 34.1 G/DL (32.0-36.0) Red Cell Distribution Width 13.0 % (11.6-14.8) Platelet Count 201 K/UL (150-450) Mean Platelet Volume 8.1 FL (6.5-10.1) Neutrophils (%) (Auto) % (45.0-75.0) Lymphocytes (%) (Auto) % (20.0-45.0) Monocytes (%) (Auto) % (1.0-10.0) Eosinophils (%) (Auto) % (0.0-3.0) Basophils (%) (Auto) % (0.0-2.0) Differential Total Cells Counted 100 Neutrophils % (Manual) 78 % (45-75) H Lymphocytes % (Manual) 9 % (20-45) L Monocytes % (Manual) 7 % (1-10) Eosinophils % (Manual) 0 % (0-3) Basophils % (Manual) 0 % (0-2) Metamyelocytes % 1 % (0-0) H Myelocytes % 3 % (0-0) H Band Neutrophils 2 % (0-8) Platelet Estimate Adequate Platelet Morphology Normal Sodium Level 144 MMOL/L (136-145) Potassium Level 5.2 MMOL/L (3.5-5.1) H Chloride Level 105 MMOL/L (98-107) Carbon Dioxide Level 36 MMOL/L (21-32) H Anion Gap 4 mmol/L (5-15) L Blood Urea Nitrogen 26 mg/dL (7-18) H Creatinine 0.7 MG/DL (0.55-1.30) Estimat Glomerular Filtration Rate > 60 mL/min (>60) Glucose Level 210 MG/DL (74-106) H Calcium Level 7.7 MG/DL (8.5-10.1) L Arterial Blood pH 7.400 (7.350-7.450) Arterial Blood Partial Pressure CO2 60.0 mmHg (35.0-45.0) *H Arterial Blood Partial Pressure O2 48.7 mmHg (75.0-100.0) Arterial Blood HCO3 36.3 mmol/L (22.0-26.0) H Arterial Blood Oxygen Saturation 84.6 % (95-100) *L Arterial Blood Base Excess 9.8 (-2-2) *H Jag Test Positive Neurologic Exam Objective intubated, sedated, minimal withdraw cc 35 min Impression/Recommendations Problems: (1) Suspected 2019 novel coronavirus infection (2) Multi-infarct dementia (3) Uncontrolled seizures (4) History of CVA (cerebrovascular accident) (5) Acute encephalopathy (6) Aspiration pneumonia (7) Respiratory failure Diagnostic Impression icu level of care cont tre and macario Monitor for seizures covid ro started atb wean off sedation when able Ivan Rose MD Sep 04, 2019 18:56
--- NOTE | 2019-09-04 19:11 | NUR ---
HAND-OFF: Report given to Leilani PAULSON.
--- NOTE | 2019-09-04 19:12 | NUR ---
NURSE NOTES: Patient received from LORENE Ornelas. patient sedated with 7.5 ETT at 25cm on ventilator AC 18 TV 450 FiO2 100% PEEP 12. BP 136/74 HR 95 RR 26 . patient with Right IJ TLC running fentanyl 200mcg/hr. Gtube running glucerna 1.2 @50ml/hr. sacral DTPI and left heel unstageable dressings clean and intact. foely catheter draining. will continue to monitor.
[2019-09-04] MEDS: Dyna-Hex 2% Top Sol 2oz TOPIC SCH (20:31)
[2019-09-04] MEDS: Tamsulosin 0.4mg cap ORAL SCH (20:31)
--- NOTE | 2019-09-04 20:37 | Infectious Diseases Prog Note ---
Assessment/Plan Assessment/Plan ASSESSMENT AND PLAN: 1. covid-19 virus infection, pna, sepsis, fevers, leukocytosis, vent, respiratory failure MRSA pneumonia rash - ? vancomycin, ? zosyn - abx held - rash improved ? bowel obstruction, ? ileus fungemia risk chest x-ray worse - ? covid-19 worsening vs multi drug resistant gram neg - zyvox, meropenem add polymyxin for multi drug resistant gram neg coverage - surveillance sputum culture - f/u on labs and chest x-ray, bc/uc - negative, sc - mrsa - supportive care, ivf, vent - d/w RN - critical - surgery f//u - icu supportive care - on steroids - d/w RN 2. Respiratory failure, on vent. 3. History of hyperlipidemia. 4. History of hypertension. 5. Atherosclerotic heart disease. 6. CAD. 7. COPD. 8. Dementia. 9. Nonverbal at baseline. 10. History of seizures. 11. No known drug allergies. 12. Social history negative. 13. Family history noncontributory. 14. MAR was noted. 15. Case discussed with RN. 16. Continue treatment per primary consultants. Subjective Constitutional: Reports: fever - fever curve better , other - on vent, no pressors, fio2-100 % HEENT: Reports: congestion Respiratory: Reports: shortness of breath Cardiovascular: Reports: other - no pressors Gastrointestinal/Abdominal: Denies: nausea, vomiting, diarrhea Genitourinary: Reports: other - + verduzco Neurologic: Reports: weakness, other - opens eyes Psychiatric: Reports: other - NA Skin: Denies: rash Hematologic: Denies: bleeding Musculoskeletal: Reports: other - NA Allergies: Coded Allergies: No Known Allergies (Unverified , 02/29/16) Objective Vital Signs Last 24 Hour Vital Signs Date Time Temp Pulse Resp B/P (MAP) Pulse Ox O2 Delivery O2 Flow Rate FiO2 09/04/19 19:30 95 26 100 Mechanical Ventilator 100 97 28 100 09/04/19 19:00 95 26 136/74 (94) 96 09/04/19 19:00 26 Endotracheal Tube 09/04/19 18:00 27 Endotracheal Tube 100 09/04/19 18:00 97 27 133/66 (88) 96 09/04/19 17:00 31 Endotracheal Tube 100 09/04/19 17:00 96 33 137/77 (97) 98 422/20 16:30 101 33 143/75 (97) 91 09/04/19 16:14 34 Endotracheal Tube 21.0 100 09/04/19 16:00 100 09/04/19 16:00 Mechanical Ventilator 09/04/19 16:00 34 Endotracheal Tube 100 09/04/19 16:00 99.8 104 34 135/70 (91) 90 09/04/19 15:30 104 36 147/86 (106) 92 09/04/19 15:20 104 09/04/19 15:20 97 32 90 Mechanical Ventilator 100 92 29 100 09/04/19 15:00 33 Endotracheal Tube 100 09/04/19 15:00 100 33 123/67 (85) 100 09/04/19 14:00 34 Endotracheal Tube 100 09/04/19 14:00 99.8 108 34 133/65 (87) 93 09/04/19 13:00 104 33 138/69 (92) 92 09/04/19 13:00 33 Endotracheal Tube 100 09/04/19 13:00 33 Endotracheal Tube 100 09/04/19 12:00 104 09/04/19 12:00 100 09/04/19 12:00 33 Endotracheal Tube 100 09/04/19 12:00 Mechanical Ventilator 09/04/19 12:00 104 33 148/68 (94) 93 09/04/19 12:00 102 33 148/68 (94) 93 09/04/19 11:30 101 32 141/70 (93) 91 09/04/19 11:00 100 32 136/83 (100) 89 09/04/19 11:00 32 Endotracheal Tube 100 09/04/19 10:40 101 22 90 Mechanical Ventilator 100 92 29 100 09/04/19 10:30 100 33 146/71 (96) 90 09/04/19 10:00 34 Endotracheal Tube 100 09/04/19 10:00 100 34 123/65 (84) 89 09/04/19 09:39 95 131/70 09/04/19 09:30 92 28 129/62 (84) 100 09/04/19 09:00 26 Endotracheal Tube 100 09/04/19 09:00 99.5 97 26 137/68 (91) 100 09/04/19 08:10 92 31 100 09/04/19 08:00 29 Endotracheal Tube 100 09/04/19 08:00 Mechanical Ventilator 09/04/19 08:00 95 29 131/70 (90) 91 09/04/19 08:00 100 09/04/19 07:32 91 09/04/19 07:00 24 Mechanical Ventilator 100 09/04/19 07:00 95 29 132/70 (90) 92 09/04/19 06:30 92 30 09/04/19 06:00 98.8 91 35 123/74 (90) 94 09/04/19 06:00 28 Mechanical Ventilator 100 09/04/19 05:30 91 35 123/74 (90) 94 09/04/19 05:30 91 22 100 09/04/19 05:00 30 Mechanical Ventilator 100 09/04/19 05:00 91 34 147/67 (93) 93 09/04/19 04:44 24 Mechanical Ventilator 100 09/04/19 04:30 88 27 128/68 (88) 95 09/04/19 04:00 99.0 81 26 131/61 (84) 100 09/04/19 04:00 81 26 131/61 (84) 100 09/04/19 04:00 100 09/04/19 04:00 28 Mechanical Ventilator 100 09/04/19 04:00 89 09/04/19 04:00 Mechanical Ventilator 09/04/19 03:30 86 23 120/60 (80) 95 09/04/19 03:00 24 Mechanical Ventilator 100 09/04/19 03:00 83 25 128/63 (84) 97 09/04/19 02:30 80 20 121/55 (77) 100 09/04/19 02:00 22 Mechanical Ventilator 09/04/19 02:00 83 23 125/60 (81) 95 09/04/19 01:30 83 24 121/60 (80) 95 09/04/19 01:05 83 21 100 Mechanical Ventilator 100 84 21 100 09/04/19 01:00 84 22 117/63 (81) 95 09/04/19 01:00 22 Mechanical Ventilator 100 09/04/19 00:30 83 21 121/60 (80) 96 09/04/19 00:00 90 09/04/19 00:00 100 09/04/19 00:00 23 Mechanical Ventilator 100 09/04/19 00:00 Mechanical Ventilator 09/04/19 00:00 98.6 82 20 123/61 (81) 97 09/03/19 23:30 81 20 121/59 (79) 92 09/03/19 23:00 81 21 125/60 (81) 89 09/03/19 23:00 20 Mechanical Ventilator 100 09/03/19 22:30 84 22 90 09/03/19 22:00 Mechanical Ventilator 21.0 100 09/03/19 22:00 86 19 125/60 (81) 98 09/03/19 21:30 82 18 111/55 (73) 100 09/03/19 21:00 22 Mechanical Ventilator 100 09/03/19 21:00 84 18 113/55 (74) 100 09/03/19 20:41 84 116/61 09/03/19 20:30 85 19 116/61 (79) 100 Height (Feet): 5 Height (Inches): 8.00 Weight (Pounds): 169 General Appearance: other - on vent HEENT: normocephalic, atraumatic, anicteric, other - oral - intubated Respiratory/Chest: crackles/rales, rhonchi - bilaterally Cardiovascular: normal rate, regular rhythm, no gallop/murmur, no JVD Abdomen: normal bowel sounds, soft, non tender, no organomegaly, non distended Genitourinary: other - + verduzco Extremities: no cyanosis Skin: no rash Neurologic/Psychiatric: other - weak, repsonsive Lymphatic: no neck adenopathy Musculoskeletal: no effusion Objective Procedure: XRAY Chest 1v - 08/23/19 - Indication: Chest pain Technique: One view of the chest Comparison: 1 1/2 hours earlier Findings: Interim placement of a right jugular central venous catheter, tip which projects at the level of the high right atrium. No gross pneumothorax. Interim endotracheal intubation, endotracheal tube tip projecting approximately 6 cm above the darline. Right upper lobe infiltrate is unchanged. Left retrocardiac opacification and likely left pleural effusion are unchanged. Impression: Endotracheal intubation Satisfactory placement right jugular central venous catheter, no radiographically evident complication Other stable findings as described 08/25/19 - Procedure: XRAY Chest 1v EXAM: XR Chest, 1 View CLINICAL HISTORY: INTRA-OP TECHNIQUE: Frontal view of the chest. COMPARISON: No relevant prior studies available. FINDINGS: Redemonstrated endotracheal tube, appropriately positioned, the tip projecting above the darline. Right internal jugular central venous catheter tip is again in the upper right atrium. There is no pneumothorax. Bilateral pulmonary consolidation is again noted. This is most confluent in the left midlung and right upper lobe, similar appearance to prior. 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 Chronic rib deformities as well as skeletal degenerative changes. IMPRESSION: No significant interval change in extensive bilateral airspace infiltrates. Chest x-ray - 08/26/19 - Procedure: XRAY Chest 1v Indication: Shortness of breath Technique: One view of the chest Comparison: none Findings: Bilateral diffuse infiltrates appears slightly more extensive than on the previous study. Stable satisfactory positions of endotracheal tube and right jugular central venous catheter. Gastrostomy is demonstrated. Impression: Over one day, interim slight worsening of bilateral infiltrates Other stable findings as described KUB - 08/29/19 - Findings: There are some mildly dilated small bowel loops in the lower midabdomen. A more dilated gas-filled segment of bowel is seen to the right of midline. Uncertain as to whether this represents a very dilated small bowel loop or an upper limits of normal caliber segment of sigmoid colon. There is a gastrostomy noted. There is a Verduzco catheter noted. Impression: Mildly dilated small bowel loops in the lower midabdomen, nonspecific, could indicate ileus versus early obstructive changes Focal segment of either very dilated small bowel or mildly prominent colon in the right upper pelvis, favor the latter Gastrostomy and Verduzco catheter incidentally noted Chest x-ray 08/28/19 - Findings: Heart size is stable. Atherosclerotic calcifications again noted in the aorta. Endotracheal tube stable and satisfactory position. Right transjugular central line has its tip in the region of the high right atrium. A gastrostomy tube is noted. There is interval worsening of aeration with increasing interstitial and patchy bilateral airspace disease. Small layering left pleural effusion not excluded. No evidence of pneumothorax. Again is evidence of prior cardiac surgery with median sternotomy and prosthetic cardiac valve. Osseous structures are stable. IMPRESSION: Interval worsening of aeration with increasing interstitial and patchy bilateral airspace disease. Findings may be on the basis of worsening CHF/pulmonary edema although multifocal pneumonia must also be considered. Endotracheal tube injection is a central line remain in place. 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 Chest -x-ray - 08/31/19 - IMPRESSION: 1. No significant change in bilateral multilobar peripheral opacities and consolidation. 2. Possible small layering left pleural effusion. 3. Pulmonary vascular congestion. Chest x-ray - 09/04/19 - Procedure: XRAY Chest 1v Indication: Dyspnea Technique: One view of the chest Comparison: 09/03/2019 Findings: Bilateral extensive dense consolidation appears slightly worse than on the previous study. Stable satisfactory position of endotracheal tube and right jugular central venous catheter. The heart size is borderline enlarged. Impression: Worsening bilateral infiltrates, over one day Microbiology Date/Time Source Procedure Growth Status 08/27/19 11:45 Blood Blood Culture - Final NO GROWTH AFTER 5 DAYS Complete 08/27/19 14:00 Sputum Gram Stain - Final Complete 08/27/19 14:00 Sputum Culture - Final Staphylococcus Aureus - Mrsa Complete 08/30/19 04:30 Urine,Catheterized Urine Culture - Final NO GROWTH AFTER 48 HOURS Complete 08/19/19 18:30 Rectum - Final NO CARBAPENEM-RESISTANT ENTEROBACTERI... Complete Laboratory Tests Test 09/04/19 04:00 09/04/19 04:30 09/04/19 11:09 White Blood Count 9.2 K/UL (4.8-10.8) Red Blood Count 3.00 M/UL (4.70-6.10) L Hemoglobin 9.6 G/DL (14.2-18.0) L Hematocrit 28.0 % (42.0-52.0) L Mean Corpuscular Volume 93 FL (80-99) Mean Corpuscular Hemoglobin 31.8 PG (27.0-31.0) H Mean Corpuscular Hemoglobin Concent 34.1 G/DL (32.0-36.0) Red Cell Distribution Width 13.0 % (11.6-14.8) Platelet Count 201 K/UL (150-450) Mean Platelet Volume 8.1 FL (6.5-10.1) Neutrophils (%) (Auto) % (45.0-75.0) Lymphocytes (%) (Auto) % (20.0-45.0) Monocytes (%) (Auto) % (1.0-10.0) Eosinophils (%) (Auto) % (0.0-3.0) Basophils (%) (Auto) % (0.0-2.0) Differential Total Cells Counted 100 Neutrophils % (Manual) 78 % (45-75) H Lymphocytes % (Manual) 9 % (20-45) L Monocytes % (Manual) 7 % (1-10) Eosinophils % (Manual) 0 % (0-3) Basophils % (Manual) 0 % (0-2) Metamyelocytes % 1 % (0-0) H Myelocytes % 3 % (0-0) H Band Neutrophils 2 % (0-8) Platelet Estimate Adequate Platelet Morphology Normal Sodium Level 144 MMOL/L (136-145) Potassium Level 5.2 MMOL/L (3.5-5.1) H Chloride Level 105 MMOL/L (98-107) Carbon Dioxide Level 36 MMOL/L (21-32) H Anion Gap 4 mmol/L (5-15) L Blood Urea Nitrogen 26 mg/dL (7-18) H Creatinine 0.7 MG/DL (0.55-1.30) Estimat Glomerular Filtration Rate > 60 mL/min (>60) Glucose Level 210 MG/DL (74-106) H Calcium Level 7.7 MG/DL (8.5-10.1) L Arterial Blood pH 7.400 (7.350-7.450) Arterial Blood Partial Pressure CO2 60.0 mmHg (35.0-45.0) *H Arterial Blood Partial Pressure O2 48.7 mmHg (75.0-100.0) Arterial Blood HCO3 36.3 mmol/L (22.0-26.0) H Arterial Blood Oxygen Saturation 84.6 % (95-100) *L Arterial Blood Base Excess 9.8 (-2-2) *H Jag Test Positive Current Medications Medications (Trade) Dose Ordered Sig/Vanessa Route PRN Reason Start Time Stop Time Status Last Admin Dose Admin Acetaminophen (Tylenol) 650 mg Q4H PRN RECTAL Temp >100.5 09/01/19 01:30 10/01/19 01:29 09/03/19 05:35 Albuterol Sulfate (Proventil MDI) 2 puff Q6HRT INH 08/22/19 13:00 11/20/19 12:59 09/04/19 19:00 Apixaban (Eliquis) 2.5 mg BID GT 08/26/19 18:00 11/18/19 17:59 09/04/19 17:00 Chlorhexidine Gluconate (Antonella-Hex 2%) 1 applic DAILY@1999 TOPIC 08/21/19 20:00 11/19/19 19:59 09/03/19 20:23 Fluconazole/ Sodium Chloride 200 ml @ 100 mls/hr Q24H IV 09/03/19 13:30 09/10/19 13:29 09/04/19 13:47 Hydralazine HCl (Apresoline) 10 mg Q2H PRN IV Systolic >180 08/26/19 15:45 11/24/19 15:44 Ipratropium Foley (Atrovent Inh) 1 puffs Q6HRT INH 08/22/19 13:00 09/21/19 12:59 09/04/19 19:00 Levetiracetam (Keppra) 1,500 mg Q12HR GT 08/20/19 21:00 09/19/19 20:59 09/04/19 09:39 Linezolid 300 ml @ 300 mls/hr EVERY 12 HOURS IVPB 08/29/19 21:00 09/06/19 20:59 09/04/19 09:39 Meropenem 1 gm/ Sodium Chloride 55 ml @ 110 mls/hr Q8HR IVPB 08/31/19 22:00 09/06/19 21:59 09/04/19 13:47 Methylprednisolone Sodium Succinate (Solu-MEDROL) 20 mg EVERY 12 HOURS IVP 08/31/19 21:00 11/23/19 20:59 09/04/19 09:38 Metoprolol Tartrate (Lopressor) 100 mg EVERY 12 HOURS GT 09/02/19 21:00 12/01/19 20:59 09/04/19 09:39 Midazolam HCl (Versed 2mg/2ml vial) 1 mg Q2H PRN IVP agitation 08/26/19 12:45 11/24/19 12:44 08/30/19 13:30 Pantoprazole (Protonix) 40 mg DAILY IVP 09/03/19 09:00 10/03/19 08:59 09/04/19 09:39 Phenytoin (Dilantin) 250 mg DAILY GT 08/21/19 09:00 09/20/19 08:59 Future hold 09/04/19 09:38 Tamsulosin HCl (Flomax) 0.4 mg BEDTIME ORAL 08/20/19 21:00 09/19/19 20:59 09/03/19 20:41 Gwen Veláqsuez MD Sep 04, 2019 20:37
--- NOTE | 2019-09-04 22:00 | NUR ---
NURSE NOTES: Patient sedated on ventilator with oxygen saturation at 99%. BP 133/64 HR 86, RR 26. patient receiving fentanyl 200mcg/hr through RIJ TLC clean and asymptomatic. gtube running glucerna 1.2 @50ml/hr with no residual noted. verduzco catheter draining yellow urine. patient repositioned and oral care provided. will continue to monitor.
[2019-09-04] MEDS: Polymyxin B Sulfate 500,000 UNITS in D5W 500ml 500 ML IVPB SCH (22:49)
[2019-09-05] VITALS (32 sets, daily range): BP systolic 99–131; BP diastolic 53–74
--- NOTE | 2019-09-05 | NUR ---
NURSE NOTES: patient sedated on ventilator AC 18 TV 450 FiO2 100% PEEP 12. BP 136/74 HR 95 RR 24 temp 99.0F axillary. patient with Right IJ TLC running fentanyl 200mcg/hr. Gtube running glucerna 1.2 @50ml/hr. sacral DTPI and left heel unstageable dressings clean and intact. Swartz catheter draining. will continue to monitor.
--- NOTE | 2019-09-05 02:00 | NUR ---
NURSE NOTES: patient sedated to RASS -2 on ventilator AC 18 TV 450 FiO2 100% PEEP 12. BP 116/73 HR 84 RR 22, oxygen saturation 100%. patient with Right IJ TLC running fentanyl 200mcg/hr. Gtube running glucerna 1.2 @50ml/hr. sacral DTPI and left heel unstageable dressings clean and intact. Swartz catheter draining. CHG bath given, patient repositioned and oral care provided. will continue to monitor.
[2019-09-05] MEDS: Albuterol 90mcg Inhaler 8gm INH SCH ×4 (03:57→19:59)
[2019-09-05] MEDS: Ipratropium Bromide Inhaler INH SCH ×4 (03:57→19:59)
--- NOTE | 2019-09-05 04:00 | NUR ---
NURSE NOTES: patient sedated to RASS -2 on ventilator with oxygen saturation 97%. BP 117/66 HR 87 RR 23, and afebrile. patient with Right IJ TLC running fentanyl 200mcg/hr. Gtube running glucerna 1.2 @50ml/hr, with no residual noted. Swartz catheter draining jaclyn urine. patient repositioned and oral care provided. will continue to monitor.
[2019-09-05] MEDS: fentaNYL Citrate 2500mcg in NS 250ml IV SCH ×2 (04:13→18:00)
[2019-09-05] MEDS: Meropenem 1 GM in NS 55 ML IVPB SCH ×3 (05:01→20:52)
[2019-09-05 05:13] LABS: HEMATOCRIT 28.2 % (42.0-52.0); HEMOGLOBIN 9.5 G/DL (14.2-18.0); MEAN CORPUSCULAR VOLUME 93 FL (80-99); PLATELET COUNT 158 K/UL (150-450); RED BLOOD COUNT 3.02 M/UL (4.70-6.10); WHITE BLOOD COUNT 10.4 K/UL (4.8-10.8)
[2019-09-05 05:21] LABS: ANION GAP 2 mmol/L (5-15); BLOOD UREA NITROGEN 24 mg/dL (7-18); CALCIUM 7.5 MG/DL (8.5-10.1); CARBON DIOXIDE 38 MMOL/L (21-32); CHLORIDE 103 MMOL/L (98-107); CREATININE 0.7 MG/DL (0.55-1.30); POTASSIUM 5.4 MMOL/L (3.5-5.1); SODIUM 142 MMOL/L (136-145)
[2019-09-05 05:54] LABS: ALBUMIN 1.2 G/DL (3.4-5.0); ALKALINE PHOSPHATASE 212 U/L (46-116); BILIRUBIN,TOTAL 0.2 MG/DL (0.2-1.0)
[2019-09-05 05:55] LABS: ALANINE AMINOTRANSFERASE 38 U/L (12-78); ASPARTATE AMINO TRANSFERASE 59 U/L (15-37); BILIRUBIN,DIRECT 0.2 MG/DL (0.0-0.3)
--- NOTE | 2019-09-05 06:00 | NUR ---
NURSE NOTES: patient sedated to RASS -2 on ventilator AC 18 TV 450 FiO2 100% PEEP 12. BP 123/59 HR 85 RR 22, oxygen saturation 96%, and afebrile. patient with Right IJ TLC running fentanyl 200mcg/hr. Gtube running glucerna 1.2 @50ml/hr. sacral DTPI and left heel unstageable dressings clean and intact. bialteral upper extremity edema noted. Swartz catheter draining light jaclyn urine. patient repositioned and oral care provided. will continue to monitor.
--- NOTE | 2019-09-05 07:17 | NUR ---
HAND-OFF: Report given to LORENE Inman. endorsed POC.
--- NOTE | 2019-09-05 08:00 | NUR ---
RESPIRATORY NOTE: received pt on current vent settings. pt is tachypneic, breathing irregularly and sedated. pt orally intubated with ETT 7.5 placed 26cm at the lip. ETT is secured via anchor fast. no visible redness around facial area. alarms are on and audible with ambu bag at bedside. isolation precautions are taken. will monitor throughout the day.
--- NOTE | 2019-09-05 08:00 | NUR ---
NURSE NOTES: Received change of shift report from Leilani PAULSON. Pt is sedated on Fentanyl drip at 200mcg/hr to maintain RASS score of -2 light sedation. Pt is intubated, ETT 7.5 at 25cm lipline with vent settings AC18, VT450, Peep 10, FIO2 100% at 100% O2Sat. NSR on monitoring manager, HR 80. Temp 98.2F axillary. Right IJ TLC intact/patent and connected to Fentanyl drip. GT with feeding Glucerna 1.2 at 50ml/hr with no residual. Swartz catheter is present draining mildly cloudy light jaclyn urine. Skin has sacral DTI and left heel unstagable wound, both covered with optifoam dressings, dry/intact. HOB at 30 degrees, bed locked, in lowest position, and three side rails up. Will continue to monitor pt and follow plan of care per MD orders and protocol.
--- NOTE | 2019-09-05 08:43 | Pulmonolgy Critical Care Note ---
Sera Bacon [employer] 09/05/19 0843: Critical Care - Asmt/Plan Assessment/Plan: ASSESSMENT (1) Acute hypoxemic and hypercapnic respiratory failure ( required intubation) (2) Suspected 2019 novel coronavirus infection (3) History of CVA (cerebrovascular accident) (4) Acute encephalopathy (5) Multi-infarct dementia (6) Uncontrolled seizures (7) Atrial fibrillation and flutter Assessment/Plan: CXR in am Continue ventilatory support/hold off on weaning ---> AC 18 TV 450, fIo2 100% PEEP 10, wean O2 Monitor gas exchange Fup with ABG Proning 12hr on/off (if able) MDI in line with Vent Continue SM 20 IV BID (D11) and taper soon Completed 5 days of Plaquenil Zyvox/Candis/Polymyxin per ID Monitor CRP and ferritin D/W pharmacy RE: Tociluzumab - per pharmacist on national shortage and cannot get, will continue to follow up Remdesivir limited to trial, cannot get under compassionate care Monitor volumes and renal function ICU sedation: Fent gtt for RASS -2 with PRN Versed F/U neuro recs, continue AED's Monitor LFT's, trending down TF's with strict aspiration precautions DVT Px: Eliquis FC, continue to discuss GOC Disposition: keep in ICU Time Spent (Minutes): 40 Notes Reviewed: coil tester, cardio, ID, neuro Discussed with: nurses, consultants case discussed and evaluated by supervising physician Critical Care - Objective Last 24 Hour Vital Signs Date Time Temp Pulse Resp B/P (MAP) Pulse Ox O2 Delivery O2 Flow Rate FiO2 09/05/19 07:55 88 21 98 Mechanical Ventilator 100 83 29 98 09/05/19 07:00 85 21 123/62 (82) 99 09/05/19 06:24 85 21 09/05/19 06:00 85 22 123/59 (80) 94 09/05/19 06:00 21 Mechanical Ventilator 100 09/05/19 05:00 22 Mechanical Ventilator 100 09/05/19 05:00 84 22 120/68 (85) 99 09/05/19 04:13 26 Mechanical Ventilator 100 09/05/19 04:00 98.7 87 31 117/66 (83) 91 09/05/19 04:00 100 09/05/19 04:00 31 Mechanical Ventilator 100 09/05/19 04:00 Mechanical Ventilator 09/05/19 03:30 82 24 100 Mechanical Ventilator 100 90 25 100 09/05/19 03:00 86 22 124/60 (81) 99 09/05/19 02:00 84 22 116/73 (87) 100 09/05/19 02:00 22 Mechanical Ventilator 100 09/05/19 01:00 86 22 129/67 (87) 91 09/05/19 01:00 24 Mechanical Ventilator 100 09/05/19 00:00 100 09/05/19 00:00 81 09/05/19 00:00 24 Mechanical Ventilator 100 09/05/19 00:00 Mechanical Ventilator 09/05/19 00:00 99.0 81 24 121/57 (78) 98 09/04/19 23:30 81 22 120/62 (81) 97 09/04/19 23:30 79 34 100 09/04/19 23:00 23 Mechanical Ventilator 100 09/04/19 23:00 84 25 139/72 (94) 96 09/04/19 22:00 26 Mechanical Ventilator 100 09/04/19 22:00 86 26 133/64 (87) 99 09/04/19 21:30 87 26 129/64 (85) 99 09/04/19 21:00 90 27 127/72 (90) 99 09/04/19 21:00 26 Mechanical Ventilator 100 09/04/19 20:32 95 136/74 09/04/19 20:30 89 27 128/68 (88) 99 09/04/19 20:00 Mechanical Ventilator 09/04/19 20:00 26 Mechanical Ventilator 100 09/04/19 20:00 95 09/04/19 20:00 100 09/04/19 20:00 99.5 92 28 140/74 (96) 98 09/04/19 19:30 95 26 100 Mechanical Ventilator 100 97 28 100 09/04/19 19:00 95 26 136/74 (94) 96 09/04/19 19:00 26 Endotracheal Tube 09/04/19 18:00 27 Endotracheal Tube 100 09/04/19 18:00 97 27 133/66 (88) 96 09/04/19 17:00 31 Endotracheal Tube 100 09/04/19 17:00 96 33 137/77 (97) 98 09/04/19 16:30 101 33 143/75 (97) 91 09/04/19 16:14 34 Endotracheal Tube 21.0 100 09/04/19 16:00 100 09/04/19 16:00 Mechanical Ventilator 09/04/19 16:00 34 Endotracheal Tube 100 09/04/19 16:00 99.8 104 34 135/70 (91) 90 09/04/19 15:30 104 36 147/86 (106) 92 09/04/19 15:20 104 09/04/19 15:20 97 32 90 Mechanical Ventilator 100 92 29 100 09/04/19 15:00 33 Endotracheal Tube 100 09/04/19 15:00 100 33 123/67 (85) 100 09/04/19 14:00 34 Endotracheal Tube 100 09/04/19 14:00 99.8 108 34 133/65 (87) 93 09/04/19 13:00 104 33 138/69 (92) 92 09/04/19 13:00 33 Endotracheal Tube 100 09/04/19 13:00 33 Endotracheal Tube 100 09/04/19 12:00 104 09/04/19 12:00 100 09/04/19 12:00 33 Endotracheal Tube 100 09/04/19 12:00 Mechanical Ventilator 09/04/19 12:00 104 33 148/68 (94) 93 09/04/19 12:00 102 33 148/68 (94) 93 09/04/19 11:30 101 32 141/70 (93) 91 09/04/19 11:00 100 32 136/83 (100) 89 09/04/19 11:00 32 Endotracheal Tube 100 09/04/19 10:40 101 22 90 Mechanical Ventilator 100 92 29 100 09/04/19 10:30 100 33 146/71 (96) 90 09/04/19 10:00 34 Endotracheal Tube 100 09/04/19 10:00 100 34 123/65 (84) 89 09/04/19 09:39 95 131/70 09/04/19 09:30 92 28 129/62 (84) 100 09/04/19 09:00 26 Endotracheal Tube 100 09/04/19 09:00 99.5 97 26 137/68 (91) 100 Status: sedated Condition: critical HEENT: atraumatic, normocephalic, other - OP with ERT in place, intact Neck: other - RIJ CL intact Lungs: rhonchi - scattered rhonchi Heart: HR/BP stable, irregular, other Abdomen: soft, non-tender, active bowel sounds, feeding tube, other - Swartz, scrotal edema Micro: Microbiology Date/Time Source Procedure Growth Status 09/04/19 23:45 Sputum Gram Stain - Final Resulted 09/04/19 23:45 Sputum Sputum Culture Pending Resulted Critical Care - Subjective Intubation Day: low grade fevers last night, currently afberile, FiO2 100%, PEEP down to 10 Condition: critical IV Access: central - RIJ intact EKG Rhythm: Atrial Fibrillation FI02: 100 Vent Support Breath Rate: 18 Vent Support Mode: AC Vent Tidal Volume: 450 Sputum Amount: Small PEEP: 10.0 PIP: 34 Secretions: small amount thick consistency Drips: Fentanyl gtt 200 mcg/hr Tube Feeding Amount: 50 I&O: Intake and Output 09/04/19 09/05/19 19:00 07:00 Intake Total 1905.00 ml 2005.6666 ml Output Total 810 ml 480 ml Balance 1095.00 ml 1525.6666 ml Free Water 500 ml IV Total 805.00 ml 1405.6666 ml Tube Feeding 600 ml 600 ml Output Urine Total 810 ml 480 ml # Bowel Movements 1 1 CXR: 09/03 worsening bilateral infiltrates ET-Tube: 7.5 ET Position: 25 David Nash MD 09/06/19 1654: Critical Care - Asmt/Plan Assessment/Plan: Patient seen and examined, d/w ICU team, agree with plan as outlined about by [employer]MER , reflects out joint assessment. Time Spent (Minutes): 40 Sera Bacon NP Sep 05, 2019 08:43 David Nash MD Sep 06, 2019 16:54
[2019-09-05] MEDS ORDERED: Sodium Polystyrene Sulfonate 15gm Powder GT SCH (09:00)
--- NOTE | 2019-09-05 09:34 | General Progress Note ---
Assessment/Plan Assessment/Plan: 83YO M with HTN, HLD, COPD, CAD, Seizure disorder presenting with cough and shortness of breath. In the ED, patient was found to be tachycardic (130's) and tachypnic (33) and febrile at 101.2. #Hypoxemic acute respiratory failure 2/2 COVID #Septic shock #Covid19 positive #transaminitis - likely 2/2 to above, downtrending/stable #Fevers #MRSA pneumonia #Drug reaction/Red Man syndrome - resolved -Appreciate ICU care -Continue vent management per the ICU team, daily SBT -Cont. contact plus droplet isolation. -Continuous youth nutritional monitor. -s/p Plaquenil -08/25 CXR reviewed, worsening b/l infiltrates -08/27 CXR w/Interval worsening of aeration with increasing interstitial and patchy bilateral airspace disease -08/26 BCx NGTD -08/26 SCx - MRSA -Steroids per Pulm -ID following: linezolid, meropenem -d/w ID, fevers likely 2/2 COVID -d/w ID, pt w/fluctuating temperatures, will hold off on retesting COVID at this time #Hyperkalemia #Hypokalemia - resolved -ctm, replace PRN -remains elevated -Kayexalate x 1 -repeat BMP in AM #Abdominal distension - improved, Ileus -KUB reviewed -d/w general sx, likely ileus #History of Seizure disorder: -cont Dilantin and Keppra -Neurology following #Paroxysmal Atrial flutter with rapid ventricular response #Accelerated HTN - resolved #HLD #CAD #Eliquis use #elevated troponins likely 2/2 demand ischemia, down trending -MTP increased to 100 BID, hydralazine PRN -Eliquis 2.5 -Cardio following, recs appreciated #Sacral Decubitus Ulcer -general sx/wound care following -recs appreciated prognosis guarded I spent 74 minutes on this patient's case, and 35 mins was dedicated to critical care. Critical Care Services performed include: Telemetry Review Hemodynamic measurement interpretation ABG interpretation Laboratory data review and interpretation Radiology image review and interpretation Ventilator setting review, management Discussion of patient's care with ICU team, ICU Nursing staff and/or consulting services ID, [employer], Pulm Subjective Allergies: Coded Allergies: No Known Allergies (Unverified , 10/17/16) Subjective Follow up for acute hypoxic resp failure, septic shock, COVID-19 positive. Pt remains intubated. Cont. to have low grade temp. HR controlled at this time. Objective Last 24 Hour Vital Signs Date Time Temp Pulse Resp B/P (MAP) Pulse Ox O2 Delivery O2 Flow Rate FiO2 09/05/19 07:55 88 21 98 Mechanical Ventilator 100 83 29 98 09/05/19 07:00 85 21 123/62 (82) 99 09/05/19 06:24 85 21 09/05/19 06:00 85 22 123/59 (80) 94 09/05/19 06:00 21 Mechanical Ventilator 100 09/05/19 05:00 22 Mechanical Ventilator 100 09/05/19 05:00 84 22 120/68 (85) 99 09/05/19 04:13 26 Mechanical Ventilator 100 09/05/19 04:00 98.7 87 31 117/66 (83) 91 09/05/19 04:00 100 09/05/19 04:00 31 Mechanical Ventilator 100 09/05/19 04:00 Mechanical Ventilator 09/05/19 03:30 82 24 100 Mechanical Ventilator 100 90 25 100 09/05/19 03:00 86 22 124/60 (81) 99 09/05/19 02:00 84 22 116/73 (87) 100 09/05/19 02:00 22 Mechanical Ventilator 100 09/05/19 01:00 86 22 129/67 (87) 91 09/05/19 01:00 24 Mechanical Ventilator 100 09/05/19 00:00 100 09/05/19 00:00 81 09/05/19 00:00 24 Mechanical Ventilator 100 09/05/19 00:00 Mechanical Ventilator 09/05/19 00:00 99.0 81 24 121/57 (78) 98 09/04/19 23:30 81 22 120/62 (81) 97 09/04/19 23:30 79 34 100 09/04/19 23:00 23 Mechanical Ventilator 100 09/04/19 23:00 84 25 139/72 (94) 96 09/04/19 22:00 26 Mechanical Ventilator 100 09/04/19 22:00 86 26 133/64 (87) 99 09/04/19 21:30 87 26 129/64 (85) 99 09/04/19 21:00 90 27 127/72 (90) 99 09/04/19 21:00 26 Mechanical Ventilator 100 09/04/19 20:32 95 136/74 09/04/19 20:30 89 27 128/68 (88) 99 09/04/19 20:00 Mechanical Ventilator 09/04/19 20:00 26 Mechanical Ventilator 100 09/04/19 20:00 95 09/04/19 20:00 100 09/04/19 20:00 99.5 92 28 140/74 (96) 98 09/04/19 19:30 95 26 100 Mechanical Ventilator 100 97 28 100 09/04/19 19:00 95 26 136/74 (94) 96 09/04/19 19:00 26 Endotracheal Tube 09/04/19 18:00 27 Endotracheal Tube 100 09/04/19 18:00 97 27 133/66 (88) 96 09/04/19 17:00 31 Endotracheal Tube 100 09/04/19 17:00 96 33 137/77 (97) 98 09/04/19 16:30 101 33 143/75 (97) 91 09/04/19 16:14 34 Endotracheal Tube 21.0 100 09/04/19 16:00 100 09/04/19 16:00 Mechanical Ventilator 09/04/19 16:00 34 Endotracheal Tube 100 09/04/19 16:00 99.8 104 34 135/70 (91) 90 09/04/19 15:30 104 36 147/86 (106) 92 09/04/19 15:20 104 09/04/19 15:20 97 32 90 Mechanical Ventilator 100 92 29 100 09/04/19 15:00 33 Endotracheal Tube 100 09/04/19 15:00 100 33 123/67 (85) 100 09/04/19 14:00 34 Endotracheal Tube 100 09/04/19 14:00 99.8 108 34 133/65 (87) 93 09/04/19 13:00 104 33 138/69 (92) 92 09/04/19 13:00 33 Endotracheal Tube 100 09/04/19 13:00 33 Endotracheal Tube 100 09/04/19 12:00 104 09/04/19 12:00 100 09/04/19 12:00 33 Endotracheal Tube 100 09/04/19 12:00 Mechanical Ventilator 09/04/19 12:00 104 33 148/68 (94) 93 09/04/19 12:00 102 33 148/68 (94) 93 09/04/19 11:30 101 32 141/70 (93) 91 09/04/19 11:00 100 32 136/83 (100) 89 09/04/19 11:00 32 Endotracheal Tube 100 09/04/19 10:40 101 22 90 Mechanical Ventilator 100 92 29 100 09/04/19 10:30 100 33 146/71 (96) 90 09/04/19 10:00 34 Endotracheal Tube 100 09/04/19 10:00 100 34 123/65 (84) 89 09/04/19 09:39 95 131/70 Intake and Output 09/04/19 09/05/19 19:00 07:00 Intake Total 1905.00 ml 2005.6666 ml Output Total 810 ml 480 ml Balance 1095.00 ml 1525.6666 ml Free Water 500 ml IV Total 805.00 ml 1405.6666 ml Tube Feeding 600 ml 600 ml Output Urine Total 810 ml 480 ml # Bowel Movements 1 1 Laboratory Tests 09/04/19 11:09: Arterial Blood pH 7.400, Arterial Blood Partial Pressure CO2 60.0*H, Arterial Blood Partial Pressure O2 48.7*L, Arterial Blood HCO3 36.3H, Arterial Blood Oxygen Saturation 84.6*L, Arterial Blood Base Excess 9.8*H, Jag Test Positive 09/05/19 04:00: White Blood Count 10.4, Red Blood Count 3.02L, Hemoglobin 9.5L, Hematocrit 28.2L , Mean Corpuscular Volume 93, Mean Corpuscular Hemoglobin 31.6H, Mean Corpuscular Hemoglobin Concent 33.9, Red Cell Distribution Width 13.0, Platelet Count 158, Mean Platelet Volume 8.1, Neutrophils (%) (Auto) , Lymphocytes (%) ( Auto) , Monocytes (%) (Auto) , Eosinophils (%) (Auto) , Basophils (%) (Auto) , Differential Total Cells Counted 100, Neutrophils % (Manual) 89H, Lymphocytes % (Manual) 6L, Monocytes % (Manual) 5, Eosinophils % (Manual) 0, Basophils % ( Manual) 0, Band Neutrophils 0, Platelet Estimate Adequate, Platelet Morphology Normal, Hypochromasia 1+, Sodium Level 142, Potassium Level 5.4H, Chloride Level 103, Carbon Dioxide Level 38H, Anion Gap 2L, Blood Urea Nitrogen 24H, Creatinine 0.7, Estimat Glomerular Filtration Rate > 60, Glucose Level 179H, Calcium Level 7.5L, Total Bilirubin 0.2, Direct Bilirubin 0.2, Aspartate Amino Transf (AST/SGOT) 59H, Alanine Aminotransferase (ALT/SGPT) 38, Alkaline Phosphatase 212H, Total Protein 5.3L, Albumin 1.2L Height (Feet): 5 Height (Inches): 8.00 Weight (Pounds): 167 Objective General: Intubated, appears comfortable HEENT: NCAT, ETT in place CV: RRR on tele monitor Pulm: b/l rise in lungs Ext: heels wrapped in bandages, no edema noted Liliana Leal M.D. Sep 05, 2019 09:34
[2019-09-05] MEDS ORDERED: Sodium Polystyrene Sulfonate 15gm Powder ORAL SCH (09:45)
[2019-09-05] MEDS: Eliquis 2.5mg tablet GT SCH ×2 (10:16→17:21)
[2019-09-05] MEDS: levETIRAcetam 500mg/5ml Liquid GT SCH ×2 (10:17→20:52)
[2019-09-05] MEDS: Phenytoin Susp 100mg/4ml GT SCH (10:17)
[2019-09-05] MEDS: Pantoprazole Inj IVP SCH (10:18)
[2019-09-05] MEDS: Metoprolol Tartrate 100mg tab GT SCH ×2 (10:18→20:52)
[2019-09-05] MEDS: Polymyxin B Sulfate 500,000 UNITS in D5W 500ml 500 ML IVPB SCH ×2 (10:18→21:43)
[2019-09-05] MEDS: Solu-MEDROL 40mg Inj IVP SCH ×2 (10:18→20:51)
--- NOTE | 2019-09-05 11:22 | Cardiac Electrophysiology PN ---
Assessment/Plan Assessment/Plan 1. Paroxysmal Atrial flutter with rapid ventricular response. In SR with first degree AVB On Eliquis 2.5 mg bid and metoprolol 100 mg bid. 2. Accelerated hypertension with blood pressure of 200. Continue metoprolol 100 mg b.i.d. and p.r.n. IV hydralazine. 3. 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 4. Respiratory failure due to COVID-19 pneumonia. On the Vent on 100% fio2 and PEEP 10 Completed hydroxychloroquine. EKG QT 440 . 5. Sepsis on Solu-Medrol and Meropenem per ID 6. History of CVA. 7. Multi-infarct dementia. 8. History of seizures. 9. Abdominal distension 10. S/P PEG 11. Full Code DW RN Subjective Subjective Intubated in ICU on 100% Fio2 and PEEP 10 and saturation still less than 90. Covid is positive. In SR off pressors. Had atrial fib with RVR 120s and Lopressor 100 bid . PEG feeding ongoing. Full code Objective Last 24 Hour Vital Signs Date Time Temp Pulse Resp B/P (MAP) Pulse Ox O2 Delivery O2 Flow Rate FiO2 09/05/19 10:18 84 123/62 09/05/19 09:47 84 22 100 09/05/19 07:55 88 21 98 Mechanical Ventilator 100 83 29 98 09/05/19 07:00 85 21 123/62 (82) 99 09/05/19 06:24 85 21 09/05/19 06:00 85 22 123/59 (80) 94 09/05/19 06:00 21 Mechanical Ventilator 100 09/05/19 05:00 22 Mechanical Ventilator 100 09/05/19 05:00 84 22 120/68 (85) 99 09/05/19 04:13 26 Mechanical Ventilator 100 09/05/19 04:00 98.7 87 31 117/66 (83) 91 09/05/19 04:00 100 09/05/19 04:00 31 Mechanical Ventilator 100 09/05/19 04:00 Mechanical Ventilator 09/05/19 03:30 82 24 100 Mechanical Ventilator 100 90 25 100 09/05/19 03:00 86 22 124/60 (81) 99 09/05/19 02:00 84 22 116/73 (87) 100 09/05/19 02:00 22 Mechanical Ventilator 100 09/05/19 01:00 86 22 129/67 (87) 91 09/05/19 01:00 24 Mechanical Ventilator 100 09/05/19 00:00 100 09/05/19 00:00 81 09/05/19 00:00 24 Mechanical Ventilator 100 09/05/19 00:00 Mechanical Ventilator 09/05/19 00:00 99.0 81 24 121/57 (78) 98 09/04/19 23:30 81 22 120/62 (81) 97 09/04/19 23:30 79 34 100 09/04/19 23:00 23 Mechanical Ventilator 100 09/04/19 23:00 84 25 139/72 (94) 96 09/04/19 22:00 26 Mechanical Ventilator 100 09/04/19 22:00 86 26 133/64 (87) 99 09/04/19 21:30 87 26 129/64 (85) 99 09/04/19 21:00 90 27 127/72 (90) 99 09/04/19 21:00 26 Mechanical Ventilator 100 09/04/19 20:32 95 136/74 09/04/19 20:30 89 27 128/68 (88) 99 09/04/19 20:00 Mechanical Ventilator 09/04/19 20:00 26 Mechanical Ventilator 100 09/04/19 20:00 95 09/04/19 20:00 100 09/04/19 20:00 99.5 92 28 140/74 (96) 98 09/04/19 19:30 95 26 100 Mechanical Ventilator 100 97 28 100 09/04/19 19:00 95 26 136/74 (94) 96 09/04/19 19:00 26 Endotracheal Tube 09/04/19 18:00 27 Endotracheal Tube 100 09/04/19 18:00 97 27 133/66 (88) 96 09/04/19 17:00 31 Endotracheal Tube 100 09/04/19 17:00 96 33 137/77 (97) 98 09/04/19 16:30 101 33 143/75 (97) 91 09/04/19 16:14 34 Endotracheal Tube 21.0 100 09/04/19 16:00 100 09/04/19 16:00 Mechanical Ventilator 09/04/19 16:00 34 Endotracheal Tube 100 09/04/19 16:00 99.8 104 34 135/70 (91) 90 4/22/20 15:30 104 36 147/86 (106) 92 09/04/19 15:20 104 09/04/19 15:20 97 32 90 Mechanical Ventilator 100 92 29 100 09/04/19 15:00 33 Endotracheal Tube 100 09/04/19 15:00 100 33 123/67 (85) 100 09/04/19 14:00 34 Endotracheal Tube 100 09/04/19 14:00 99.8 108 34 133/65 (87) 93 09/04/19 13:00 104 33 138/69 (92) 92 09/04/19 13:00 33 Endotracheal Tube 100 09/04/19 13:00 33 Endotracheal Tube 100 09/04/19 12:00 104 09/04/19 12:00 100 09/04/19 12:00 33 Endotracheal Tube 100 09/04/19 12:00 Mechanical Ventilator 09/04/19 12:00 104 33 148/68 (94) 93 09/04/19 12:00 102 33 148/68 (94) 93 09/04/19 11:30 101 32 141/70 (93) 91 Intake and Output 09/04/19 09/05/19 18:59 06:59 Intake Total 1960.00 ml 2025.6666 ml Output Total 790 ml 500 ml Balance 1170.00 ml 1525.6666 ml Free Water 500 ml IV Total 860.00 ml 1425.6666 ml Tube Feeding 600 ml 600 ml Output Urine Total 790 ml 500 ml # Bowel Movements 1 1 Laboratory Tests Test 09/05/19 04:00 09/05/19 09:45 White Blood Count 10.4 K/UL (4.8-10.8) Red Blood Count 3.02 M/UL (4.70-6.10) L Hemoglobin 9.5 G/DL (14.2-18.0) L Hematocrit 28.2 % (42.0-52.0) L Mean Corpuscular Volume 93 FL (80-99) Mean Corpuscular Hemoglobin 31.6 PG (27.0-31.0) H Mean Corpuscular Hemoglobin Concent 33.9 G/DL (32.0-36.0) Red Cell Distribution Width 13.0 % (11.6-14.8) Platelet Count 158 K/UL (150-450) Mean Platelet Volume 8.1 FL (6.5-10.1) Neutrophils (%) (Auto) % (45.0-75.0) Lymphocytes (%) (Auto) % (20.0-45.0) Monocytes (%) (Auto) % (1.0-10.0) Eosinophils (%) (Auto) % (0.0-3.0) Basophils (%) (Auto) % (0.0-2.0) Differential Total Cells Counted 100 Neutrophils % (Manual) 89 % (45-75) H Lymphocytes % (Manual) 6 % (20-45) L Monocytes % (Manual) 5 % (1-10) Eosinophils % (Manual) 0 % (0-3) Basophils % (Manual) 0 % (0-2) Band Neutrophils 0 % (0-8) Platelet Estimate Adequate Platelet Morphology Normal Hypochromasia 1+ Sodium Level 142 MMOL/L (136-145) Potassium Level 5.4 MMOL/L (3.5-5.1) H Chloride Level 103 MMOL/L (98-107) Carbon Dioxide Level 38 MMOL/L (21-32) H Anion Gap 2 mmol/L (5-15) L Blood Urea Nitrogen 24 mg/dL (7-18) H Creatinine 0.7 MG/DL (0.55-1.30) Estimat Glomerular Filtration Rate > 60 mL/min (>60) Glucose Level 179 MG/DL (74-106) H Calcium Level 7.5 MG/DL (8.5-10.1) L Total Bilirubin 0.2 MG/DL (0.2-1.0) Direct Bilirubin 0.2 MG/DL (0.0-0.3) Aspartate Amino Transf (AST/SGOT) 59 U/L (15-37) H Alanine Aminotransferase (ALT/SGPT) 38 U/L (12-78) Alkaline Phosphatase 212 U/L (46-116) H Total Protein 5.3 G/DL (6.4-8.2) L Albumin 1.2 G/DL (3.4-5.0) L Arterial Blood pH 7.328 (7.350-7.450) Arterial Blood Partial Pressure CO2 73.4 mmHg (35.0-45.0) *H Arterial Blood Partial Pressure O2 83.0 mmHg (75.0-100.0) Arterial Blood HCO3 37.7 mmol/L (22.0-26.0) H Arterial Blood Oxygen Saturation 95.1 % (95-100) Arterial Blood Base Excess 9.6 (-2-2) *H Jag Test Positive Microbiology Date/Time Source Procedure Growth Status 09/04/19 23:45 Sputum Gram Stain - Final Resulted 09/04/19 23:45 Sputum Sputum Culture Pending Resulted Objective HEAD AND NECK: No JVD. Orally intubated. LUNGS: Coarse rhonchi. CARDIOVASCULAR: Irregular S1 and S2 with no gallop or murmur. ABDOMEN: Soft.PEG intact EXTREMITIES: 1 plus pitting edema. Paul Robles MD Sep 05, 2019 11:22
--- NOTE | 2019-09-05 12:00 | NUR ---
NURSE NOTES: Pt is desaturating down to 86% while on 100% FIO2. ABG results were reported to Sera Bacon [employer] and per received order, Peep was increased to 12 by RT. O2Sat after Peep change increased to 96%-98%. Oral care was done. Pt was repositioned.
--- NOTE | 2019-09-05 15:33 | Surgery Progress Note ---
Surgery Progress Note Subjective Additional Comments labs reviewed exam stable ill appearing Objective Last 24 Hour Vital Signs Date Time Temp Pulse Resp B/P (MAP) Pulse Ox O2 Delivery O2 Flow Rate FiO2 09/05/19 15:08 93 23 100 09/05/19 13:30 89 24 122/61 (81) 99 09/05/19 13:00 90 25 129/65 (86) 99 09/05/19 12:30 90 24 95 Mechanical Ventilator 100 90 29 100 09/05/19 12:30 89 26 121/65 (83) 99 09/05/19 12:00 100 09/05/19 12:00 89 24 102/58 (73) 89 09/05/19 12:00 90 09/05/19 12:00 Mechanical Ventilator 09/05/19 11:30 89 24 124/65 (84) 89 09/05/19 11:00 86 22 117/64 (81) 86 09/05/19 10:30 84 22 126/59 (81) 100 09/05/19 10:18 84 123/62 09/05/19 10:00 82 25 122/69 (86) 100 09/05/19 09:47 84 22 100 09/05/19 09:30 84 23 122/59 (80) 100 09/05/19 09:00 83 22 118/67 (84) 100 09/05/19 08:30 85 22 127/61 (83) 100 09/05/19 08:00 Mechanical Ventilator 09/05/19 08:00 98.6 82 26 130/67 (88) 100 09/05/19 08:00 82 09/05/19 08:00 100 09/05/19 07:55 88 21 98 Mechanical Ventilator 100 83 29 100 09/05/19 07:00 85 21 123/62 (82) 99 09/05/19 06:24 85 21 09/05/19 06:00 85 22 123/59 (80) 94 09/05/19 06:00 21 Mechanical Ventilator 100 09/05/19 05:00 22 Mechanical Ventilator 100 09/05/19 05:00 84 22 120/68 (85) 99 09/05/19 04:13 26 Mechanical Ventilator 100 09/05/19 04:00 98.7 87 31 117/66 (83) 91 09/05/19 04:00 100 09/05/19 04:00 31 Mechanical Ventilator 100 09/05/19 04:00 Mechanical Ventilator 09/05/19 03:30 82 24 100 Mechanical Ventilator 100 90 25 100 09/05/19 03:00 86 22 124/60 (81) 99 09/05/19 02:00 84 22 116/73 (87) 100 09/05/19 02:00 22 Mechanical Ventilator 100 09/05/19 01:00 86 22 129/67 (87) 91 09/05/19 01:00 24 Mechanical Ventilator 100 09/05/19 00:00 100 09/05/19 00:00 81 09/05/19 00:00 24 Mechanical Ventilator 100 09/05/19 00:00 Mechanical Ventilator 09/05/19 00:00 99.0 81 24 121/57 (78) 98 09/04/19 23:30 81 22 120/62 (81) 97 09/04/19 23:30 79 34 100 09/04/19 23:00 23 Mechanical Ventilator 100 09/04/19 23:00 84 25 139/72 (94) 96 09/04/19 22:00 26 Mechanical Ventilator 100 09/04/19 22:00 86 26 133/64 (87) 99 09/04/19 21:30 87 26 129/64 (85) 99 09/04/19 21:00 90 27 127/72 (90) 99 09/04/19 21:00 26 Mechanical Ventilator 100 09/04/19 20:32 95 136/74 09/04/19 20:30 89 27 128/68 (88) 99 09/04/19 20:00 Mechanical Ventilator 09/04/19 20:00 26 Mechanical Ventilator 100 09/04/19 20:00 95 09/04/19 20:00 100 09/04/19 20:00 99.5 92 28 140/74 (96) 98 09/04/19 19:30 95 26 100 Mechanical Ventilator 100 97 28 100 09/04/19 19:00 95 26 136/74 (94) 96 09/04/19 19:00 26 Endotracheal Tube 09/04/19 18:00 27 Endotracheal Tube 100 09/04/19 18:00 97 27 133/66 (88) 96 09/04/19 17:00 31 Endotracheal Tube 100 09/04/19 17:00 96 33 137/77 (97) 98 09/04/19 16:30 101 33 143/75 (97) 91 09/04/19 16:14 34 Endotracheal Tube 21.0 100 09/04/19 16:00 100 09/04/19 16:00 Mechanical Ventilator 09/04/19 16:00 34 Endotracheal Tube 100 09/04/19 16:00 99.8 104 34 135/70 (91) 90 I&O Intake and Output 09/04/19 09/05/19 19:00 07:00 Intake Total 1905.00 ml 2005.6666 ml Output Total 810 ml 480 ml Balance 1095.00 ml 1525.6666 ml Free Water 500 ml IV Total 805.00 ml 1405.6666 ml Tube Feeding 600 ml 600 ml Output Urine Total 810 ml 480 ml # Bowel Movements 1 1 Dressing: other Wound: other Drains: other Cardiovascular: RSR Respiratory: decreased breath sounds Abdomen: soft, non-tender, present bowel sounds Extremities: no cyanosis Laboratory Tests Test 09/05/19 04:00 09/05/19 09:45 White Blood Count 10.4 K/UL (4.8-10.8) Red Blood Count 3.02 M/UL (4.70-6.10) L Hemoglobin 9.5 G/DL (14.2-18.0) L Hematocrit 28.2 % (42.0-52.0) L Mean Corpuscular Volume 93 FL (80-99) Mean Corpuscular Hemoglobin 31.6 PG (27.0-31.0) H Mean Corpuscular Hemoglobin Concent 33.9 G/DL (32.0-36.0) Red Cell Distribution Width 13.0 % (11.6-14.8) Platelet Count 158 K/UL (150-450) Mean Platelet Volume 8.1 FL (6.5-10.1) Neutrophils (%) (Auto) % (45.0-75.0) Lymphocytes (%) (Auto) % (20.0-45.0) Monocytes (%) (Auto) % (1.0-10.0) Eosinophils (%) (Auto) % (0.0-3.0) Basophils (%) (Auto) % (0.0-2.0) Differential Total Cells Counted 100 Neutrophils % (Manual) 89 % (45-75) H Lymphocytes % (Manual) 6 % (20-45) L Monocytes % (Manual) 5 % (1-10) Eosinophils % (Manual) 0 % (0-3) Basophils % (Manual) 0 % (0-2) Band Neutrophils 0 % (0-8) Platelet Estimate Adequate Platelet Morphology Normal Hypochromasia 1+ Sodium Level 142 MMOL/L (136-145) Potassium Level 5.4 MMOL/L (3.5-5.1) H Chloride Level 103 MMOL/L (98-107) Carbon Dioxide Level 38 MMOL/L (21-32) H Anion Gap 2 mmol/L (5-15) L Blood Urea Nitrogen 24 mg/dL (7-18) H Creatinine 0.7 MG/DL (0.55-1.30) Estimat Glomerular Filtration Rate > 60 mL/min (>60) Glucose Level 179 MG/DL (74-106) H Calcium Level 7.5 MG/DL (8.5-10.1) L Total Bilirubin 0.2 MG/DL (0.2-1.0) Direct Bilirubin 0.2 MG/DL (0.0-0.3) Aspartate Amino Transf (AST/SGOT) 59 U/L (15-37) H Alanine Aminotransferase (ALT/SGPT) 38 U/L (12-78) Alkaline Phosphatase 212 U/L (46-116) H Total Protein 5.3 G/DL (6.4-8.2) L Albumin 1.2 G/DL (3.4-5.0) L Arterial Blood pH 7.328 (7.350-7.450) Arterial Blood Partial Pressure CO2 73.4 mmHg (35.0-45.0) *H Arterial Blood Partial Pressure O2 83.0 mmHg (75.0-100.0) Arterial Blood HCO3 37.7 mmol/L (22.0-26.0) H Arterial Blood Oxygen Saturation 95.1 % (95-100) Arterial Blood Base Excess 9.6 (-2-2) *H Jag Test Positive Plan Problems: (1) Decubitus skin ulcer Assessment & Plan: Patient presented on admission with Sacral DTPI. Base of wound is purple with maroon borders. Unstageable pressure injury Plantar L heel . Base of wound is necrotic with marginal erythema along borders. Non-blanching erythema R heel. Sacral DTPI now evolving since admission. Several opening within base of wound. No exudate noted. Open areas are moist and jason. Surrounding base of wound is purple with erythema along borders. Unstageable Pressure injury Plantar L heel. Base of wound is necrotic. Edges adherent to base of wound. Tx.Plan: Cleanse Sacral wound with Saline. Apply Therahoney. Apply Moisture Barrier Paste periwound. Cover with Optifoam drsg. Change every 3 days and prn. Apply Betadine to Plantar L heel. Cover with Optifoam drsg. Change every 3 days and prn. Apply Cavilon Skin Barrier R heel. Cover with Optifoam drsg. Change every 7 days and prn. Reposition at least every 2hours or as tolerated Off-load heels with pillow. Nutritional optimization will follow with recs air mattress once off isolation DAILY ESTIMATED NEEDS: Needs based on Critical care, Wounds/ 53kg abw 22-28 kcals/kg 8552-5290 total kcals 1.25-2 g protein/kg 66-106 g total protein 25-30 mL/kg 1851-0557 total fluid mLs NUTRITION DIAGNOSIS: * Swallowing difficulty R/T dysphagia as evidenced by PEG dep, s/p intubation, on GT feeding. * Increased kcal/prot needs R/T wound healing as evidenced by pt admitted w/ evolving DTPI sacral wound and unstageable lt heel wound. CURRENT TF:Glucerna 1.2 @50ml/hr x22 hrs ENTERAL NUTRITION RECOMMENDATIONS: Glucerna 1.2 @ 50ml/hr x 22 hrs (hold 1 hr before and after Dilantin QD) to provide 1100ml, 1320kcal, 66g prot, 886ml free water * Maintain Glucerna 1.2 for carb control, BGs elevated. * Hold 1 hr before and after Dilantin med * HOB over 30 degrees/ without IVF, H20 flush of 150ml q 6 hrs FOR 24 HRS TF RUN WITHOUT DILANTIN (Dilantin currently held) : okay to keep the same TF rate of Glucerna 1.2 @ 50ml/hr x 24 hrs to provide 1200ml, 1440kcal, 72g prot 966ml free water -> will still meet 100% est kcal/prot needs ADDITIONAL RECOMMENDATIONS: * Per SNF record, ht is 60", wt is 149lbs (08/14/19) Rec calibrated bedscale wt * Rec NISS w/ TF: BGs elevated, now on Solumedrol * Wound healing: add Vit C 500mg QD + Giancarlo 1pkt BID via PEG * Monitor lytes, replete as needed . (2) Multi-infarct dementia (3) Uncontrolled seizures (4) History of CVA (cerebrovascular accident) (5) Acute encephalopathy (6) Aspiration pneumonia Assessment & Plan: Interval worsening of aeration with increasing interstitial and patchy bilateral airspace disease. Findings may be on the basis of worsening CHF/pulmonary edema although multifocal pneumonia must also be considered. Endotracheal tube injection is a central line remain in place. 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 (7) Respiratory failure (8) Suspected 2019 novel coronavirus infection Assessment & Plan: testing ? (9) Abdominal distension Assessment & Plan: pending KUB +BM ulikely obstruction will monitor Sundeep Benavidez Sep 05, 2019 15:33
--- NOTE | 2019-09-05 16:00 | NUR ---
NURSE NOTES: Pt remains on Fentanyl drip at 200mcg/hr to maintain RASS score of -2 light sedation. VS remain stable.
--- NOTE | 2019-09-05 18:00 | NUR ---
NURSE NOTES: Pt was cleaned, gown/bed linens were changed. Oral care was done and pt repositioned with bilateral extremities elevated on pillows. VS remain stable while pt is maintained on Fentanyl 200mcg for RASS score -2 light sedation.
--- NOTE | 2019-09-05 18:46 | Neurology Progress Note ---
Interim History Interim History ROS Limited/Unobtainable: Yes Interim History remains intubated Objective Physical Exam Last Vital Signs Date Time Temp Pulse Resp B/P (MAP) Pulse Ox O2 Delivery O2 Flow Rate FiO2 09/05/19 17:00 90 23 125/69 (87) 95 09/05/19 15:08 100 09/05/19 12:30 Mechanical Ventilator 09/05/19 08:00 98.6 09/04/19 16:14 21.0 Laboratory Tests Test 09/05/19 04:00 09/05/19 09:45 White Blood Count 10.4 K/UL (4.8-10.8) Red Blood Count 3.02 M/UL (4.70-6.10) L Hemoglobin 9.5 G/DL (14.2-18.0) L Hematocrit 28.2 % (42.0-52.0) L Mean Corpuscular Volume 93 FL (80-99) Mean Corpuscular Hemoglobin 31.6 PG (27.0-31.0) H Mean Corpuscular Hemoglobin Concent 33.9 G/DL (32.0-36.0) Red Cell Distribution Width 13.0 % (11.6-14.8) Platelet Count 158 K/UL (150-450) Mean Platelet Volume 8.1 FL (6.5-10.1) Neutrophils (%) (Auto) % (45.0-75.0) Lymphocytes (%) (Auto) % (20.0-45.0) Monocytes (%) (Auto) % (1.0-10.0) Eosinophils (%) (Auto) % (0.0-3.0) Basophils (%) (Auto) % (0.0-2.0) Differential Total Cells Counted 100 Neutrophils % (Manual) 89 % (45-75) H Lymphocytes % (Manual) 6 % (20-45) L Monocytes % (Manual) 5 % (1-10) Eosinophils % (Manual) 0 % (0-3) Basophils % (Manual) 0 % (0-2) Band Neutrophils 0 % (0-8) Platelet Estimate Adequate Platelet Morphology Normal Hypochromasia 1+ Sodium Level 142 MMOL/L (136-145) Potassium Level 5.4 MMOL/L (3.5-5.1) H Chloride Level 103 MMOL/L (98-107) Carbon Dioxide Level 38 MMOL/L (21-32) H Anion Gap 2 mmol/L (5-15) L Blood Urea Nitrogen 24 mg/dL (7-18) H Creatinine 0.7 MG/DL (0.55-1.30) Estimat Glomerular Filtration Rate > 60 mL/min (>60) Glucose Level 179 MG/DL (74-106) H Calcium Level 7.5 MG/DL (8.5-10.1) L Total Bilirubin 0.2 MG/DL (0.2-1.0) Direct Bilirubin 0.2 MG/DL (0.0-0.3) Aspartate Amino Transf (AST/SGOT) 59 U/L (15-37) H Alanine Aminotransferase (ALT/SGPT) 38 U/L (12-78) Alkaline Phosphatase 212 U/L (46-116) H Total Protein 5.3 G/DL (6.4-8.2) L Albumin 1.2 G/DL (3.4-5.0) L Arterial Blood pH 7.328 (7.350-7.450) Arterial Blood Partial Pressure CO2 73.4 mmHg (35.0-45.0) *H Arterial Blood Partial Pressure O2 83.0 mmHg (75.0-100.0) Arterial Blood HCO3 37.7 mmol/L (22.0-26.0) H Arterial Blood Oxygen Saturation 95.1 % (95-100) Arterial Blood Base Excess 9.6 (-2-2) *H Jag Test Positive Neurologic Exam Objective intubated, sedated, minimal withdraw cc 35 min Impression/Recommendations Problems: (1) Suspected 2019 novel coronavirus infection (2) Multi-infarct dementia (3) Uncontrolled seizures (4) History of CVA (cerebrovascular accident) (5) Acute encephalopathy (6) Aspiration pneumonia (7) Respiratory failure Diagnostic Impression icu level of care cont tre and dilmolly Monitor for seizures covid ro started atb wean off sedation when able Ivan Rose MD Sep 05, 2019 18:46
--- NOTE | 2019-09-05 19:25 | NUR ---
NURSE NOTES: Patent received from LORENE Inman. patient sedated with 7.5 ETT at 25cm on ventilator AC 18 TV 450 FiO2 100% PEEP 12. BP 120/53 HR88 RR23 with oxygen saturation 99% in bradley position. right IJ TLC running fentanyl 200mcg/hr. Gtube running glucerna 1.2 @ 50ml/hr. verduzco catheter draining dark jaclyn urine. bilateral upper extremity and scrotal edema noted. sacral and left heel dressing clean and intact. will continue to monitor.
--- NOTE | 2019-09-05 19:30 | NUR ---
HAND-OFF: Report given to Leilani PAULSON. Endorsed plan of care.
--- NOTE | 2019-09-05 20:01 | NUR ---
RESPIRATORY NOTE: Received pt on AC 18, 450VT, 100%, PEEP +12. Pt intubated w/ ETT 7.5 @ 26cm lipline, secured by anchorfast. Pt sedated. B/S nasir. rhonchi, sxn minimal amounts of thick, pale-yellow secretions. Vent plugged into red outlet, ambubag at bedside. Pt in no apparent distress at this time. Will continue to monitor pt.
[2019-09-05] MEDS: Tamsulosin 0.4mg cap ORAL SCH (20:51)
[2019-09-05] MEDS: Dyna-Hex 2% Top Sol 2oz TOPIC SCH (20:51)
--- NOTE | 2019-09-05 22:00 | NUR ---
NURSE NOTES: patient sedated to RASS -2 on ventilator AC 18 TV 450 FiO2 100% PEEP 12. BP 122/53 HR80 RR23 with oxygen saturation 96%. right IJ TLC running fentanyl 200mcg/hr. Gtube running glucerna 1.2 @ 50ml/hr. verduzco catheter draining. patient repositioned and oral care provided. will continue to monitor.
[2019-09-06] VITALS (38 sets, daily range): BP systolic 112–142; BP diastolic 56–74
--- NOTE | 2019-09-06 | NUR ---
NURSE NOTES: patient sedated to RASS -2 on ventilator AC 18 TV 450 FiO2 100% PEEP 12. BP 120/60 HR81 RR21 with oxygen saturation 98%. right IJ TLC running fentanyl 200mcg/hr. Gtube running glucerna 1.2 @ 50ml/hr. verduzco catheter draining. patient repositioned and oral care provided. will continue to monitor.
[2019-09-06] MEDS: Ipratropium Bromide Inhaler INH SCH ×4 (01:21→19:05)
[2019-09-06] MEDS: Albuterol 90mcg Inhaler 8gm INH SCH ×4 (01:21→19:05)
--- NOTE | 2019-09-06 02:00 | NUR ---
NURSE NOTES: patient sedated to RASS -2 on ventilator AC 18 TV 450 FiO2 100% PEEP 12. BP 122/69 HR82 RR21 with oxygen saturation 95%. right IJ TLC running fentanyl 200mcg/hr. Gtube running glucerna 1.2 @ 50ml/hr. verduzoc catheter draining. CHG bath given, patient repositioned and oral care provided. Called for p200 mattress. will continue to monitor.
--- NOTE | 2019-09-06 04:00 | NUR ---
NURSE NOTES: patient sedated to RASS -2 on ventilator with oxygen saturation 100%. BP 121/64 HR80 RR24. right IJ TLC running fentanyl 200mcg/hr. Gtube running glucerna 1.2 @ 50ml/hr. verduzco catheter draining. patient repositioned and oral care provided. will continue to monitor.
[2019-09-06] MEDS: Meropenem 1 GM in NS 55 ML IVPB SCH ×3 (05:12→23:02)
[2019-09-06] MEDS: fentaNYL Citrate 2500mcg in NS 250ml IV SCH ×2 (05:15→21:07)
--- NOTE | 2019-09-06 06:00 | NUR ---
NURSE NOTES: patient sedated to RASS -2 on ventilator AC 18 TV 450 FiO2 100% PEEP 12. BP 123/59 HR85 RR22 with oxygen saturation 100%. right IJ TLC running fentanyl 200mcg/hr. Gtube running glucerna 1.2 @ 50ml/hr. verduzco catheter draining jaclyn urine. bilateral upper extremity and scrotal dependent edema noted. sacral and left heel dressings clean and intact. patient repositioned and oral care provided. will continue to monitor.
--- NOTE | 2019-09-06 07:08 | NUR ---
HAND-OFF: Report given to LORENE Martinez. endorsed plan of care.
--- NOTE | 2019-09-06 07:30 | NUR ---
NURSE NOTES: received report from tasha Thomas pt in bed. sedated. pupils unable to determine. hypoactive gag, responsive to pain. bilateral radial pulses faint. dependent edema noted, scrotal edema noted. pt intubated 7.5, 25cm lip. settings ac 18, 450, ps 12, 100% fi02. abdomen distended, hypoactive bowel sounds. gt. tube feeding glu1.2, running at 50ml/hr. no bm. skin- see assessment. rt ij tlc. dressing dry and intact.fentyal running at 200mcg/min. afebrile. pt on airborne isolation. will continue to monitor pt.
--- NOTE | 2019-09-06 08:04 | General Progress Note ---
Assessment/Plan Assessment/Plan: 83YO M with HTN, HLD, COPD, CAD, Seizure disorder presenting with cough and shortness of breath. In the ED, patient was found to be tachycardic (130's) and tachypnic (33) and febrile at 101.2. #Hypoxemic acute respiratory failure 2/2 COVID #Septic shock #Covid19 positive #transaminitis - likely 2/2 to above, downtrending/stable #Fevers #MRSA pneumonia #Drug reaction/Red Man syndrome - resolved -Appreciate ICU care -Continue vent management per the ICU team, daily SBT -Cont. contact plus droplet isolation. 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 -s/p Plaquenil -08/26 BCx NGTD -08/26 SCx - MRSA -08/29 UCx NGTD 09/03 SCx +staph aureus -Steroids per Pulm -ID following: linezolid, meropenem #Hyperkalemia #Hypokalemia - resolved -ctm, replace PRN -s/p Kayexalate -no labs yet today -repeat BMP in AM #Abdominal distension - improved, Ileus -KUB reviewed -d/w general sx, likely ileus #History of Seizure disorder: -cont Dilantin and Keppra -Neurology following #Paroxysmal Atrial flutter with rapid ventricular response #Accelerated HTN - resolved #HLD #CAD #Eliquis use #elevated troponins likely 2/2 demand ischemia, down trending -MTP increased to 100 BID, hydralazine PRN -Eliquis 2.5 -Cardio following, recs appreciated #Sacral Decubitus Ulcer -general sx/wound care following -recs appreciated prognosis guarded I spent 70 minutes on this patient's case, and 35 mins was dedicated to critical care. Critical Care Services performed include: Telemetry Review Hemodynamic measurement interpretation ABG interpretation Laboratory data review and interpretation Radiology image review and interpretation Ventilator setting review, management Discussion of patient's care with ICU team, ICU Nursing staff and/or consulting services ID, PLANING MACHINE OPERATOR, Pulm Subjective Allergies: Coded Allergies: No Known Allergies (Unverified , 02/29/16) Subjective Follow up for acute hypoxic resp failure, septic shock, COVID-19 positive. Pt remains intubated. HR controlled at this time. Objective Last 24 Hour Vital Signs Date Time Temp Pulse Resp B/P (MAP) Pulse Ox O2 Delivery O2 Flow Rate FiO2 09/06/19 07:00 82 22 114/58 (76) 100 09/06/19 07:00 22 Mechanical Ventilator 100 09/06/19 06:30 80 22 09/06/19 06:00 80 22 115/63 (80) 100 09/06/19 06:00 22 Mechanical Ventilator 100 09/06/19 05:16 80 22 100 09/06/19 05:15 21 Mechanical Ventilator 100 09/06/19 05:00 21 Mechanical Ventilator 100 09/06/19 05:00 80 23 113/61 (78) 100 09/06/19 04:00 79 09/06/19 04:00 98.7 80 24 121/64 (83) 100 09/06/19 04:00 24 Mechanical Ventilator 100 09/06/19 04:00 100 09/06/19 04:00 Mechanical Ventilator 09/06/19 03:30 83 21 100 09/06/19 03:00 22 Mechanical Ventilator 100 09/06/19 03:00 83 20 125/66 (85) 95 09/06/19 02:00 21 Mechanical Ventilator 100 09/06/19 02:00 82 21 122/69 (86) 95 09/06/19 01:21 83 21 95 Mechanical Ventilator 100 84 21 100 09/06/19 01:00 83 21 128/67 (87) 89 09/06/19 01:00 22 Mechanical Ventilator 100 09/06/19 00:00 98.9 81 21 120/60 (80) 98 09/06/19 00:00 21 Mechanical Ventilator 100 09/06/19 00:00 Mechanical Ventilator 09/05/19 23:15 88 21 100 09/05/19 23:00 22 Mechanical Ventilator 100 09/05/19 23:00 80 34 113/63 (80) 96 09/05/19 22:20 88 21 100 09/05/19 22:00 80 21 122/53 (76) 96 09/05/19 22:00 21 Mechanical Ventilator 100 09/05/19 21:00 22 Mechanical Ventilator 100 09/05/19 21:00 88 21 118/59 (78) 100 09/05/19 20:52 88 120/53 09/05/19 20:00 Mechanical Ventilator 09/05/19 20:00 88 09/05/19 20:00 26 Mechanical Ventilator 100 09/05/19 20:00 99.0 88 21 99/65 (76) 99 09/05/19 20:00 100 09/05/19 19:59 89 21 100 Mechanical Ventilator 100 89 22 100 09/05/19 19:00 88 23 120/53 (75) 99 09/05/19 19:00 24 Mechanical Ventilator 100 09/05/19 18:30 98.8 09/05/19 18:30 91 22 119/59 (79) 99 09/05/19 18:00 24 Mechanical Ventilator 100 09/05/19 18:00 24 Mechanical Ventilator 100 09/05/19 18:00 98.8 91 23 120/57 (78) 100 09/05/19 17:00 90 23 125/69 (87) 95 09/05/19 17:00 24 Mechanical Ventilator 100 09/05/19 16:00 100 09/05/19 16:00 91 09/05/19 16:00 24 Mechanical Ventilator 100 09/05/19 16:00 Mechanical Ventilator 09/05/19 16:00 92 23 118/72 (87) 95 09/05/19 15:08 93 23 100 09/05/19 15:00 24 Mechanical Ventilator 100 09/05/19 15:00 92 24 130/74 (92) 93 09/05/19 14:30 91 24 127/68 (87) 93 09/05/19 14:00 91 24 131/63 (85) 96 09/05/19 14:00 24 Mechanical Ventilator 100 09/05/19 13:30 89 24 122/61 (81) 99 09/05/19 13:00 90 25 129/65 (86) 99 09/05/19 13:00 24 Mechanical Ventilator 100 09/05/19 12:30 90 24 95 Mechanical Ventilator 100 90 29 100 09/05/19 12:30 89 26 121/65 (83) 99 09/05/19 12:00 100 09/05/19 12:00 89 24 102/58 (73) 89 09/05/19 12:00 90 09/05/19 12:00 24 Mechanical Ventilator 100 09/05/19 12:00 Mechanical Ventilator 09/05/19 11:30 89 24 124/65 (84) 89 09/05/19 11:00 98.6 86 22 117/64 (81) 86 09/05/19 11:00 24 Mechanical Ventilator 100 09/05/19 10:30 84 22 126/59 (81) 100 09/05/19 10:18 84 123/62 09/05/19 10:00 82 25 122/69 (86) 100 09/05/19 10:00 24 Mechanical Ventilator 100 09/05/19 09:47 84 22 100 09/05/19 09:30 84 23 122/59 (80) 100 09/05/19 09:00 83 22 118/67 (84) 100 09/05/19 09:00 24 100 09/05/19 08:30 85 22 127/61 (83) 100 Intake and Output 09/05/19 09/06/19 19:00 07:00 Intake Total 1930 ml 1745 ml Output Total 415 ml 390 ml Balance 1515 ml 1355 ml Free Water 180 ml 150 ml IV Total 1150 ml 1145 ml Tube Feeding 600 ml 450 ml Output Urine Total 415 ml 390 ml # Bowel Movements 3 1 Laboratory Tests 09/05/19 09:45: Arterial Blood pH 7.328L, Arterial Blood Partial Pressure CO2 73.4*H, Arterial Blood Partial Pressure O2 83.0, Arterial Blood HCO3 37.7H, Arterial Blood Oxygen Saturation 95.1, Arterial Blood Base Excess 9.6*H, Jag Test Positive Height (Feet): 5 Height (Inches): 8.00 Weight (Pounds): 168 Objective General: Intubated, appears comfortable HEENT: NCAT, ETT in place CV: RRR on tele monitor Pulm: b/l rise in lungs Ext: heels wrapped in bandages, no edema noted Liliana Leal M.D. Sep 06, 2019 08:04
[2019-09-06] MEDS: Polymyxin B Sulfate 500,000 UNITS in D5W 500ml 500 ML IVPB SCH ×2 (08:29→21:11)
[2019-09-06] MEDS: Phenytoin Susp 100mg/4ml GT SCH (08:30)
[2019-09-06] MEDS: levETIRAcetam 500mg/5ml Liquid GT SCH ×2 (08:30→21:10)
[2019-09-06] MEDS: Metoprolol Tartrate 100mg tab GT SCH ×2 (08:31→21:11)
[2019-09-06] MEDS: Eliquis 2.5mg tablet GT SCH ×2 (08:31→17:43)
[2019-09-06] MEDS: Pantoprazole Inj IVP SCH (08:32)
[2019-09-06] MEDS: Solu-MEDROL 40mg Inj IVP SCH ×2 (08:32→21:11)
--- NOTE | 2019-09-06 08:49 | Neurology Progress Note ---
Interim History Interim History ROS Limited/Unobtainable: Yes Interim History no changes intubated vent Objective Physical Exam Last Vital Signs Date Time Temp Pulse Resp B/P (MAP) Pulse Ox O2 Delivery O2 Flow Rate FiO2 09/06/19 08:31 82 116/58 09/06/19 07:00 22 100 09/06/19 07:00 Mechanical Ventilator 100 09/06/19 04:00 98.7 09/04/19 16:14 21.0 Laboratory Tests Test 09/05/19 09:45 Arterial Blood pH 7.328 (7.350-7.450) Arterial Blood Partial Pressure CO2 73.4 mmHg (35.0-45.0) *H Arterial Blood Partial Pressure O2 83.0 mmHg (75.0-100.0) Arterial Blood HCO3 37.7 mmol/L (22.0-26.0) H Arterial Blood Oxygen Saturation 95.1 % (95-100) Arterial Blood Base Excess 9.6 (-2-2) *H Jag Test Positive Neurologic Exam Objective intubated, sedated, minimal withdraw cc 35 min Impression/Recommendations Problems: (1) Suspected 2019 novel coronavirus infection (2) Multi-infarct dementia (3) Uncontrolled seizures (4) History of CVA (cerebrovascular accident) (5) Acute encephalopathy (6) Aspiration pneumonia (7) Respiratory failure Diagnostic Impression icu level of care cont tre and macario Monitor for seizures covid ro started atb wean off sedation when able Ivan Rose MD Sep 06, 2019 08:49
--- NOTE | 2019-09-06 09:05 | Pulmonolgy Critical Care Note ---
Sera Bacon JOINT MACHINE OPERATOR 09/06/19 0905: Critical Care - Asmt/Plan Assessment/Plan: ASSESSMENT (1) Acute hypoxemic and hypercapnic respiratory failure ( required intubation) (2) Suspected 2019 novel coronavirus infection (3) History of CVA (cerebrovascular accident) (4) Acute encephalopathy (5) Multi-infarct dementia (6) Uncontrolled seizures (7) Atrial fibrillation and flutter Assessment/Plan: PEEP up to 12 since 09/04 due to worsening hypoxemia ABG and CXR pending , will fup with results later Continue ventilatory support/hold off on weaning ---> AC 18 TV 450, fIo2 100% PEEP 12 ; wean O2 Monitor gas exchange Proning 12hr on/off (if able) MDI in line with Vent Continue SM 20 IV BID (D11) and taper soon Completed 5 days of Plaquenil Zyvox/Candis/Polymyxin per ID, SCX + 08/26 MRSA, SCX 08/14 prel Stap aureus Monitor CRP and ferritin D/W pharmacy RE: Tociluzumab - per pharmacist on national shortage and cannot get, will continue to follow up Remdesivir limited to trial, cannot get under compassionate care Monitor volumes and renal function ICU sedation: Fent gtt for RASS -2 with PRN Versed F/U neuro recs, continue AED's Monitor LFT's, trending down TF's with strict aspiration precautions DVT Px: [place] FC, continue to discuss GOC Disposition: keep in ICU Time Spent (Minutes): 40 Notes Reviewed: stringed instrument assembler, cardio, ID, neuro Discussed with: nurses, consultants case discussed and evaluated by supervising physician Critical Care - Objective Last 24 Hour Vital Signs Date Time Temp Pulse Resp B/P (MAP) Pulse Ox O2 Delivery O2 Flow Rate FiO2 09/06/19 08:31 82 116/58 09/06/19 07:29 85 22 100 Mechanical Ventilator 100 85 22 100 09/06/19 07:00 82 22 114/58 (76) 100 09/06/19 07:00 22 Mechanical Ventilator 100 09/06/19 06:30 80 22 09/06/19 06:00 80 22 115/63 (80) 100 09/06/19 06:00 22 Mechanical Ventilator 100 09/06/19 05:16 80 22 100 09/06/19 05:15 21 Mechanical Ventilator 100 09/06/19 05:00 21 Mechanical Ventilator 100 09/06/19 05:00 80 23 113/61 (78) 100 09/06/19 04:00 79 09/06/19 04:00 98.7 80 24 121/64 (83) 100 09/06/19 04:00 24 Mechanical Ventilator 100 09/06/19 04:00 100 09/06/19 04:00 Mechanical Ventilator 09/06/19 03:30 83 21 100 09/06/19 03:00 22 Mechanical Ventilator 100 09/06/19 03:00 83 20 125/66 (85) 95 09/06/19 02:00 21 Mechanical Ventilator 100 09/06/19 02:00 82 21 122/69 (86) 95 09/06/19 01:21 83 21 95 Mechanical Ventilator 100 84 21 100 09/06/19 01:00 83 21 128/67 (87) 89 09/06/19 01:00 22 Mechanical Ventilator 100 09/06/19 00:00 98.9 81 21 120/60 (80) 98 09/06/19 00:00 21 Mechanical Ventilator 100 09/06/19 00:00 Mechanical Ventilator 09/05/19 23:15 88 21 100 09/05/19 23:00 22 Mechanical Ventilator 100 09/05/19 23:00 80 34 113/63 (80) 96 09/05/19 22:20 88 21 100 09/05/19 22:00 80 21 122/53 (76) 96 09/05/19 22:00 21 Mechanical Ventilator 100 09/05/19 21:00 22 Mechanical Ventilator 100 09/05/19 21:00 88 21 118/59 (78) 100 09/05/19 20:52 88 120/53 09/05/19 20:00 Mechanical Ventilator 09/05/19 20:00 88 09/05/19 20:00 26 Mechanical Ventilator 100 09/05/19 20:00 99.0 88 21 99/65 (76) 99 09/05/19 20:00 100 09/05/19 19:59 89 21 100 Mechanical Ventilator 100 89 22 100 09/05/19 19:00 88 23 120/53 (75) 99 09/05/19 19:00 24 Mechanical Ventilator 100 09/05/19 18:30 98.8 09/05/19 18:30 91 22 119/59 (79) 99 09/05/19 18:00 24 Mechanical Ventilator 100 09/05/19 18:00 24 Mechanical Ventilator 100 09/05/19 18:00 98.8 91 23 120/57 (78) 100 09/05/19 17:00 90 23 125/69 (87) 95 09/05/19 17:00 24 Mechanical Ventilator 100 09/05/19 16:00 100 09/05/19 16:00 91 09/05/19 16:00 24 Mechanical Ventilator 100 09/05/19 16:00 Mechanical Ventilator 09/05/19 16:00 92 23 118/72 (87) 95 09/05/19 15:08 93 23 100 09/05/19 15:00 24 Mechanical Ventilator 100 09/05/19 15:00 92 24 130/74 (92) 93 09/05/19 14:30 91 24 127/68 (87) 93 09/05/19 14:00 91 24 131/63 (85) 96 09/05/19 14:00 24 Mechanical Ventilator 100 09/05/19 13:30 89 24 122/61 (81) 99 09/05/19 13:00 90 25 129/65 (86) 99 09/05/19 13:00 24 Mechanical Ventilator 100 09/05/19 12:30 90 24 95 Mechanical Ventilator 100 90 29 100 09/05/19 12:30 89 26 121/65 (83) 99 09/05/19 12:00 100 09/05/19 12:00 89 24 102/58 (73) 89 09/05/19 12:00 90 09/05/19 12:00 24 Mechanical Ventilator 100 09/05/19 12:00 Mechanical Ventilator 09/05/19 11:30 89 24 124/65 (84) 89 09/05/19 11:00 98.6 86 22 117/64 (81) 86 09/05/19 11:00 24 Mechanical Ventilator 100 09/05/19 10:30 84 22 126/59 (81) 100 09/05/19 10:18 84 123/62 09/05/19 10:00 82 25 122/69 (86) 100 09/05/19 10:00 24 Mechanical Ventilator 100 09/05/19 09:47 84 22 100 09/05/19 09:30 84 23 122/59 (80) 100 09/05/19 09:00 83 22 118/67 (84) 100 09/05/19 09:00 24 100 Objective: Status: sedated Condition: critical HEENT: atraumatic, normocephalic, OP with ET in place, intact, Neck: RIJ CL intact Lungs: scattered rhonchi Heart: HR/BP stable, regular, SR with 1 st degree AV block Abdomen: soft, non-tender, active bowel sounds, feeding tube, : Swartz, scrotal edema Micro: Microbiology Date/Time Source Procedure Growth Status 09/04/19 23:45 Sputum Gram Stain - Final Resulted 09/04/19 23:45 Sputum Culture - Preliminary Staphylococcus Aureus Resulted Critical Care - Subjective ROS Limited/Unobtainable: Yes Interval Events: sedated, PEEP up to 12 yesterday afternoon after desaturation FiO2 100% ABG and CXR pending for this am no fevers, hemodynamically stable Condition: critical IV Access: central - RIJ intact EKG Rhythm: Sinus Rhythm - with 1 st degree AV block FI02: 100 Vent Support Breath Rate: 18 Vent Support Mode: AC Vent Tidal Volume: 450 Sputum Amount: Scant PEEP: 12.0 PIP: 45 Drips: Fentanyl gtt 200 m,cg/hr Tube Feeding Amount: 50 I&O: Intake and Output 09/05/19 09/06/19 19:00 07:00 Intake Total 1930 ml 1745 ml Output Total 415 ml 390 ml Balance 1515 ml 1355 ml Free Water 180 ml 150 ml IV Total 1150 ml 1145 ml Tube Feeding 600 ml 450 ml Output Urine Total 415 ml 390 ml # Bowel Movements 3 1 CXR: CXR 09/05 Bilateral extensive diffuse interstitial and airspace infiltrates, appearing slightly improved since prior exam of 09/04/2019 ET-Tube: 7.5 ET Position: 25 David Nash MD 09/06/19 1655: Critical Care - Asmt/Plan Assessment/Plan: Patient seen and examined, d/w ICU team, agree with plan as outlined about by JOINT MACHINE OPERATOR , reflects out joint assessment. Sera Bacon NP Sep 06, 2019 09:05 David Nash MD Sep 06, 2019 16:55
--- NOTE | 2019-09-06 10:18 | NUR ---
RD ASSESSMENT & RECOMMENDATIONS SEE CARE ACTIVITY FOR COMPLETE ASSESSMENT DAILY ESTIMATED NEEDS: Needs based on Critical care, Wounds/ 53kg abw 22-28 kcals/kg 2071-8059 total kcals 1.25-2 g protein/kg 66-106 g total protein 25-30 mL/kg 7796-6793 total fluid mLs NUTRITION DIAGNOSIS: * Swallowing difficulty R/T dysphagia as evidenced by PEG dep, s/p intubation, on GT feeding. * Increased kcal/prot needs R/T wound healing as evidenced by pt admitted w/ evolving DTPI sacral wound and unstageable lt heel wound. CURRENT TF:Glucerna 1.2 @50ml/hr x22 hrs ENTERAL NUTRITION RECOMMENDATIONS: NEPRO @37ml/hr x22 hrs to provide 814ml, 1465 kcal, 66g pro, 592ml free H2O * Rec TF change to NEPRO for less K intake (pt currently receiving 2222mg K per day w/ Glucerna 1.2 @50ml/hr x22 hrs; Nepro @above goal to provide 863mg K per day). * Start Nepro @17ml/hr for 6 hrs, advance as tolerated 10ml/hr q4-6 hrs to goal. * Hold 1 hr before and after Dilantin med * HOB over 30 degrees/ without IVF, H20 flush of 150ml q 6 hrs ADDITIONAL RECOMMENDATIONS: * Per SNF record, ht is 60", wt is 149lbs (08/14/19) Rec calibrated bedscale wt * Rec NISS w/ TF: BGs elevated, now on Solumedrol * Wound healing: add Vit C 500mg QD + Giancarlo 1pkt BID via PEG * K remains elevated-> rec TF change to NEPRO .
--- NOTE | 2019-09-06 11:07 | Diagnostic Imaging Report ---
Indication: Dyspnea Technique: One view of the chest Comparison: 09/04/2019 Findings: Extensive bilateral diffuse interstitial and airspace disease is again demonstrated, with consolidation appearing slightly less dense than on the prior exam. Stable satisfactory positions of endotracheal tube, right jugular central venous catheter. The heart remains enlarged. Again demonstrated is evidence of prior median sternotomy. Impression: Bilateral extensive diffuse interstitial and airspace infiltrates, appearing slightly improved since prior exam of 09/04/2019
--- NOTE | 2019-09-06 11:16 | Consultation ---
History of Present Illness General Chief Complaint: Fever Reason for Consultation: seizures Present Illness Allergies: Coded Allergies: No Known Allergies (Unverified , 02/29/16) Medication History Scheduled Apixaban (Eliquis), 2.5 MG PO BID, (Reported) Ascorbic Acid* (Ascorbic Acid*), 500 MG GT DAILY, (Reported) Aspirin* (Aspirin*), 81 MG ORAL DAILY, (Reported) Atorvastatin Calcium* (Atorvastatin Calcium*), 40 MG ORAL BEDTIME, (Reported) Calcium Carbonate (Calcium), 500 MG PO DAILY, (Reported) Cholecalciferol (Vitamin D3)* (Vitamin D*), 1,000 UNIT ORAL DAILY, (Reported) Docusate Sodium (Docusate Sodium), 10 MG GT DAILY, (Reported) Levetiracetam* (Levetiracetam*), 1,500 MG GT BID, (Reported) Levofloxacin (Levofloxacin*), 500 MG ORAL DAILY Lorazepam* (Ativan*), 0.5 MG ORAL THREE TIMES A DAY, (Reported) Mirtazapine* (Mirtazapine*), 7.5 MG ORAL BEDTIME, (Reported) Multivitamin (Multiple Vitamins), 1 EACH PO DAILY, (Reported) Pantoprazole* (Protonix*), 40 MG ORAL DAILY, (Reported) Phenytoin (Phenytoin*), 250 MG ORAL DAILY, (Reported) Tamsulosin Hcl (Tamsulosin Hcl*), 0.4 MG ORAL BEDTIME, (Reported) Terbinafine Hcl* (Lamisil*), 250 MG GT DAILY, (Reported) Scheduled PRN Acetaminophen* (Acetaminophen*), 650 MG ORAL Q6H PRN for Mild Pain/Temp > 100.5, (Reported) Ipratropium Marble 0.5MG/2.5ML (Ipratropium Marble 0.5MG/2.5ML), 0.5 MG HHN Q4HR PRN for Shortness of Breath, (Reported) Miscellaneous Medications Isosorbide Dinitrate (Isosorbide Dinitrate*), 30 MG ORAL, (Reported) Patient History Healthcare decision maker BRIDGETTE FITZGERALD Resuscitation status Full Code Advanced Directive on File Yes Physical Exam Last 24 Hour Vital Signs Date Time Temp Pulse Resp B/P (MAP) Pulse Ox O2 Delivery O2 Flow Rate FiO2 09/06/19 09:29 88 20 100 09/06/19 08:31 82 116/58 09/06/19 07:29 85 22 100 Mechanical Ventilator 100 85 22 100 09/06/19 07:00 82 22 114/58 (76) 100 09/06/19 07:00 22 Mechanical Ventilator 100 09/06/19 06:30 80 22 09/06/19 06:00 80 22 115/63 (80) 100 09/06/19 06:00 22 Mechanical Ventilator 100 09/06/19 05:16 80 22 100 09/06/19 05:15 21 Mechanical Ventilator 100 09/06/19 05:00 21 Mechanical Ventilator 100 09/06/19 05:00 80 23 113/61 (78) 100 09/06/19 04:00 79 09/06/19 04:00 98.7 80 24 121/64 (83) 100 09/06/19 04:00 24 Mechanical Ventilator 100 09/06/19 04:00 100 09/06/19 04:00 Mechanical Ventilator 09/06/19 03:30 83 21 100 09/06/19 03:00 22 Mechanical Ventilator 100 09/06/19 03:00 83 20 125/66 (85) 95 09/06/19 02:00 21 Mechanical Ventilator 100 09/06/19 02:00 82 21 122/69 (86) 95 09/06/19 01:21 83 21 95 Mechanical Ventilator 100 84 21 100 09/06/19 01:00 83 21 128/67 (87) 89 09/06/19 01:00 22 Mechanical Ventilator 100 09/06/19 00:00 98.9 81 21 120/60 (80) 98 09/06/19 00:00 21 Mechanical Ventilator 100 09/06/19 00:00 Mechanical Ventilator 09/05/19 23:15 88 21 100 09/05/19 23:00 22 Mechanical Ventilator 100 09/05/19 23:00 80 34 113/63 (80) 96 09/05/19 22:20 88 21 100 09/05/19 22:00 80 21 122/53 (76) 96 09/05/19 22:00 21 Mechanical Ventilator 100 09/05/19 21:00 22 Mechanical Ventilator 100 09/05/19 21:00 88 21 118/59 (78) 100 09/05/19 20:52 88 120/53 09/05/19 20:00 Mechanical Ventilator 09/05/19 20:00 88 09/05/19 20:00 26 Mechanical Ventilator 100 09/05/19 20:00 99.0 88 21 99/65 (76) 99 09/05/19 20:00 100 09/05/19 19:59 89 21 100 Mechanical Ventilator 100 89 22 100 09/05/19 19:00 88 23 120/53 (75) 99 09/05/19 19:00 24 Mechanical Ventilator 100 09/05/19 18:30 98.8 09/05/19 18:30 91 22 119/59 (79) 99 09/05/19 18:00 24 Mechanical Ventilator 100 09/05/19 18:00 24 Mechanical Ventilator 100 09/05/19 18:00 98.8 91 23 120/57 (78) 100 09/05/19 17:00 90 23 125/69 (87) 95 09/05/19 17:00 24 Mechanical Ventilator 100 09/05/19 16:00 100 09/05/19 16:00 91 09/05/19 16:00 24 Mechanical Ventilator 100 09/05/19 16:00 Mechanical Ventilator 09/05/19 16:00 92 23 118/72 (87) 95 09/05/19 15:08 93 23 100 09/05/19 15:00 24 Mechanical Ventilator 100 09/05/19 15:00 92 24 130/74 (92) 93 09/05/19 14:30 91 24 127/68 (87) 93 09/05/19 14:00 91 24 131/63 (85) 96 09/05/19 14:00 24 Mechanical Ventilator 100 09/05/19 13:30 89 24 122/61 (81) 99 09/05/19 13:00 90 25 129/65 (86) 99 09/05/19 13:00 24 Mechanical Ventilator 100 09/05/19 12:30 90 24 95 Mechanical Ventilator 100 90 29 100 09/05/19 12:30 89 26 121/65 (83) 99 09/05/19 12:00 100 09/05/19 12:00 89 24 102/58 (73) 89 09/05/19 12:00 90 09/05/19 12:00 24 Mechanical Ventilator 100 09/05/19 12:00 Mechanical Ventilator 09/05/19 11:30 89 24 124/65 (84) 89 Intake and Output 09/05/19 09/06/19 19:00 07:00 Intake Total 1930 ml 1745 ml Output Total 415 ml 390 ml Balance 1515 ml 1355 ml Free Water 180 ml 150 ml IV Total 1150 ml 1145 ml Tube Feeding 600 ml 450 ml Output Urine Total 415 ml 390 ml # Bowel Movements 3 1 Height (Feet): 5 Height (Inches): 8.00 Weight (Pounds): 168 Medications Current Medications Medications (Trade) Dose Ordered Sig/Vanessa Route PRN Reason Start Time Stop Time Status Last Admin Dose Admin Acetaminophen (Tylenol) 650 mg Q4H PRN RECTAL Temp >100.5 09/01/19 01:30 10/01/19 01:29 09/03/19 05:35 Albuterol Sulfate (Proventil MDI) 2 puff Q6HRT INH 08/22/19 13:00 11/20/19 12:59 09/06/19 08:52 Apixaban (Eliquis) 2.5 mg BID GT 08/26/19 18:00 11/18/19 17:59 09/06/19 08:31 Chlorhexidine Gluconate (Antonella-Hex 2%) 1 applic DAILY@2000 TOPIC 08/21/19 20:00 11/19/19 19:59 09/05/19 20:51 Fentanyl Citrate 2500 mcg/Sodium Chloride 250 ml @ 0 mls/hr Q24H IV 09/04/19 20:30 09/11/19 20:29 09/06/19 05:15 Hydralazine HCl (Apresoline) 10 mg Q2H PRN IV Systolic >180 08/26/19 15:45 11/24/19 15:44 Ipratropium Marble (Atrovent Inh) 1 puffs Q6HRT INH 08/22/19 13:00 09/21/19 12:59 09/06/19 08:52 Levetiracetam (Keppra) 1,500 mg Q12HR GT 08/20/19 21:00 09/19/19 20:59 09/06/19 08:30 Linezolid 300 ml @ 300 mls/hr EVERY 12 HOURS IVPB 09/04/19 21:00 09/12/19 20:59 09/06/19 08:28 Meropenem 1 gm/ Sodium Chloride 55 ml @ 110 mls/hr Q8HR IVPB 09/04/19 22:00 09/10/19 21:59 09/06/19 05:12 Methylprednisolone Sodium Succinate (Solu-MEDROL) 20 mg EVERY 12 HOURS IVP 08/31/19 21:00 11/23/19 20:59 09/06/19 08:32 Metoprolol Tartrate (Lopressor) 100 mg EVERY 12 HOURS GT 09/02/19 21:00 12/01/19 20:59 09/06/19 08:31 Midazolam HCl (Versed 2mg/2ml vial) 1 mg Q2H PRN IVP agitation 08/26/19 12:45 11/24/19 12:44 08/30/19 13:30 Pantoprazole (Protonix) 40 mg DAILY IVP 09/03/19 09:00 10/03/19 08:59 09/06/19 08:32 Phenytoin (Dilantin) 250 mg DAILY GT 08/21/19 09:00 09/20/19 08:59 Future hold 09/06/19 08:30 Polymyxin B Sulfate 592032 units/Dextrose 500 ml @ 500 mls/hr EVERY 12 HOURS IVPB 09/04/19 22:00 09/11/19 21:59 09/06/19 08:29 Tamsulosin HCl (Flomax) 0.4 mg BEDTIME ORAL 08/20/19 21:00 09/19/19 20:59 09/05/19 20:51 Assessment/Plan Assessment/Plan: Hematology Consultation [place] MD: [place] RFC: elevated d-dimer elevation significance DOS: 09/06/2019 HPI: 84-year-old male with history of CVA with residual left-sided hemiplegia, CAD status post [place], COPD, dementia nonverbal at baseline, seizure disorder presents for evaluation of fevers, cough. Symptoms present several days. Patient is not able to provide any significant history given his nonverbal status and severe dementia. According to EMS he has had worsening shortness of breath and cough with pulse oximetry dropping to the low 90s. Fevers around 101 degrees taken orally for the past 2 days. He is full code. No reported emesis. No reported diarrhea. Since has been intubated, is difficult to obtain info from patient, [facility] was consulted for eval and rx. PMH: CVA, CAD, COPD, dementia, GERD, seizure disorder PSH: Reviewed Allergies: None listed in medical chart Social Hx: Reviewed Allergies: Coded Allergies: No Known Allergies (Unverified , 02/29/16) COVID-19 Screening Contact w/high risk pt: Yes Recent Travel to affected area: No Experienced COVID-19 symptoms?: Yes COVID-19 symptoms experienced: Fever (T>100.4F or >38C), Shortness of Breath Nursing Documentation-PMH Past Medical History: No History, Except For Hx Cardiac Problems: No Hx COPD: Yes Hx Cancer: No Hx Gastrointestinal Problems: Yes - GT Hx Neurological Problems: Yes Hx Cerebrovascular Accident: Yes Hx Seizures: Yes Review of Systems All Other Systems: limited - Nonverbal Physical Exam General: Awake, nonverbal, febrile, intubated HEENT: NC/AT. EOMI. Cardiovascular: Tachycardic. S1 and S2 normal. No murmur appreciated Resp: Increased work of breathing with tachypnea. ++ intubated Abdomen: Abdomen is soft, nondistended. PEG in place ++ Skin: Intact. No abrasions, laceration or rash over the exposed skin MSK: No obvious deformity. Neuro: Awake, moaning incomprehensively, nonverbal. Ext: triple lumen++ Labs: noted Imaging: reviewed Assessmenta and Recs # Elevated didmer in the setting of hypoxemic acute respiratory failure 2/2 COVID --> likely is elevated due to sepsis, inflammatory state, cytokine release storm --> recommend to get duplex, however, will wait until patient negative --> have dw US tech, can wait # Lymphopenia due to Septic shock from Covid19 positive --> likely is a poor prognositic indicator --> trend as needed --> is on abx as needed # Hypecoagulable disorder with afib paroxysmal --> ok for eliquis to continue --> as per cards # Transaminitis - likely 2/2 to above, downtrending/stable --> ast and alt is noted # Fevers with MRSA pneumonia. covid 19 --> remains on abx as needed --> as per id care # Hyperkalemia --> kayxelate prn # Hypokalemia - resolved # Abdominal distension - improved, Ileus --> KUB reviewed # History of Seizure disorder: --> cont Dilantin and Keppra # Sacral Decubitus Ulcer --> per surg The timing of this note does not necessarily reflect the time of the patient was seen. Greatly appreciate consultation. Darinel Smith MD Sep 06, 2019 11:16
--- NOTE | 2019-09-06 12:55 | NUR ---
RADIOLOGY DEPT., CHEST X-RAY DONE.-P.DYE
[2019-09-06 13:08] LABS: ALANINE AMINOTRANSFERASE 32 U/L (12-78); ALBUMIN 1.1 G/DL (3.4-5.0); ALBUMIN/GLOBULIN RATIO 0.2 (1.0-2.7); ALKALINE PHOSPHATASE 210 U/L (46-116); ANION GAP 2 mmol/L (5-15); ASPARTATE AMINO TRANSFERASE 56 U/L (15-37); BILIRUBIN,TOTAL 0.2 MG/DL (0.2-1.0); BLOOD UREA NITROGEN 28 mg/dL (7-18); CALCIUM 7.5 MG/DL (8.5-10.1); CARBON DIOXIDE 38 MMOL/L (21-32); CHLORIDE 101 MMOL/L (98-107); CREATININE 0.6 MG/DL (0.55-1.30); POTASSIUM 5.4 MMOL/L (3.5-5.1); SODIUM 141 MMOL/L (136-145)
[2019-09-06 13:30] LABS: HEMATOCRIT 28.9 % (42.0-52.0); HEMOGLOBIN 9.7 G/DL (14.2-18.0); MEAN CORPUSCULAR VOLUME 94 FL (80-99); PLATELET COUNT 117 K/UL (150-450); RED BLOOD COUNT 3.08 M/UL (4.70-6.10); RED CELL DISTRIBUTION WIDTH 13.8 % (11.6-14.8)
--- NOTE | 2019-09-06 14:07 | Cardiac Electrophysiology PN ---
Assessment/Plan Assessment/Plan 1. Paroxysmal Atrial flutter with rapid ventricular response. In SR with first degree AVB On Eliquis 2.5 mg bid and metoprolol 100 mg bid. 2. Accelerated hypertension with blood pressure of 200. Continue metoprolol 100 mg b.i.d. and p.r.n. IV hydralazine. 3. 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 4. Respiratory failure due to COVID-19 pneumonia. On the Vent on 100% fio2 and PEEP 12 Completed hydroxychloroquine. EKG QT 440 . 5. Sepsis on Solu-Medrol and Meropenem per ID 6. History of CVA. 7. Multi-infarct dementia. 8. History of seizures. 9. Abdominal distension 10. S/P PEG 11. Full Code DW RN Subjective Subjective Intubated in ICU on 100% Fio2 and PEEP 12. Covid is positive. In SR off pressors but on fentanyl drip Had atrial fib with RVR 120s and Lopressor 100 bid . PEG feeding ongoing. Full code Objective Last 24 Hour Vital Signs Date Time Temp Pulse Resp B/P (MAP) Pulse Ox O2 Delivery O2 Flow Rate FiO2 09/06/19 11:29 89 24 100 09/06/19 09:29 88 20 100 09/06/19 08:31 82 116/58 09/06/19 07:29 85 22 100 Mechanical Ventilator 100 85 22 100 09/06/19 07:00 82 22 114/58 (76) 100 09/06/19 07:00 22 Mechanical Ventilator 100 09/06/19 06:30 80 22 09/06/19 06:00 80 22 115/63 (80) 100 09/06/19 06:00 22 Mechanical Ventilator 100 09/06/19 05:16 80 22 100 09/06/19 05:15 21 Mechanical Ventilator 100 09/06/19 05:00 21 Mechanical Ventilator 100 09/06/19 05:00 80 23 113/61 (78) 100 09/06/19 04:00 79 09/06/19 04:00 98.7 80 24 121/64 (83) 100 09/06/19 04:00 24 Mechanical Ventilator 100 09/06/19 04:00 100 09/06/19 04:00 Mechanical Ventilator 09/06/19 03:30 83 21 100 09/06/19 03:00 22 Mechanical Ventilator 100 09/06/19 03:00 83 20 125/66 (85) 95 09/06/19 02:00 21 Mechanical Ventilator 100 09/06/19 02:00 82 21 122/69 (86) 95 09/06/19 01:21 83 21 95 Mechanical Ventilator 100 84 21 100 09/06/19 01:00 83 21 128/67 (87) 89 09/06/19 01:00 22 Mechanical Ventilator 100 09/06/19 00:00 98.9 81 21 120/60 (80) 98 09/06/19 00:00 21 Mechanical Ventilator 100 09/06/19 00:00 Mechanical Ventilator 09/05/19 23:15 88 21 100 09/05/19 23:00 22 Mechanical Ventilator 100 09/05/19 23:00 80 34 113/63 (80) 96 09/05/19 22:20 88 21 100 09/05/19 22:00 80 21 122/53 (76) 96 09/05/19 22:00 21 Mechanical Ventilator 100 09/05/19 21:00 22 Mechanical Ventilator 100 09/05/19 21:00 88 21 118/59 (78) 100 09/05/19 20:52 88 120/53 09/05/19 20:00 Mechanical Ventilator 09/05/19 20:00 88 09/05/19 20:00 26 Mechanical Ventilator 100 09/05/19 20:00 99.0 88 21 99/65 (76) 99 09/05/19 20:00 100 09/05/19 19:59 89 21 100 Mechanical Ventilator 100 89 22 100 09/05/19 19:00 88 23 120/53 (75) 99 09/05/19 19:00 24 Mechanical Ventilator 100 09/05/19 18:30 98.8 09/05/19 18:30 91 22 119/59 (79) 99 09/05/19 18:00 24 Mechanical Ventilator 100 09/05/19 18:00 24 Mechanical Ventilator 100 09/05/19 18:00 98.8 91 23 120/57 (78) 100 09/05/19 17:00 90 23 125/69 (87) 95 09/05/19 17:00 24 Mechanical Ventilator 100 09/05/19 16:00 100 09/05/19 16:00 91 09/05/19 16:00 24 Mechanical Ventilator 100 09/05/19 16:00 Mechanical Ventilator 09/05/19 16:00 92 23 118/72 (87) 95 09/05/19 15:08 93 23 100 09/05/19 15:00 24 Mechanical Ventilator 100 09/05/19 15:00 92 24 130/74 (92) 93 09/05/19 14:30 91 24 127/68 (87) 93 Intake and Output 09/05/19 09/06/19 19:00 07:00 Intake Total 1930 ml 1745 ml Output Total 415 ml 390 ml Balance 1515 ml 1355 ml Free Water 180 ml 150 ml IV Total 1150 ml 1145 ml Tube Feeding 600 ml 450 ml Output Urine Total 415 ml 390 ml # Bowel Movements 3 1 Laboratory Tests Test 09/06/19 12:25 White Blood Count 11.0 K/UL (4.8-10.8) H Red Blood Count 3.08 M/UL (4.70-6.10) L Hemoglobin 9.7 G/DL (14.2-18.0) L Hematocrit 28.9 % (42.0-52.0) L Mean Corpuscular Volume 94 FL (80-99) Mean Corpuscular Hemoglobin 31.5 PG (27.0-31.0) H Mean Corpuscular Hemoglobin Concent 33.6 G/DL (32.0-36.0) Red Cell Distribution Width 13.8 % (11.6-14.8) Platelet Count 117 K/UL (150-450) L Mean Platelet Volume 9.0 FL (6.5-10.1) Neutrophils (%) (Auto) % (45.0-75.0) Lymphocytes (%) (Auto) % (20.0-45.0) Monocytes (%) (Auto) % (1.0-10.0) Eosinophils (%) (Auto) % (0.0-3.0) Basophils (%) (Auto) % (0.0-2.0) Neutrophils % (Manual) Pending Lymphocytes % (Manual) Pending Platelet Estimate Pending Platelet Morphology Pending Sodium Level 141 MMOL/L (136-145) Potassium Level 5.4 MMOL/L (3.5-5.1) H Chloride Level 101 MMOL/L (98-107) Carbon Dioxide Level 38 MMOL/L (21-32) H Anion Gap 2 mmol/L (5-15) L Blood Urea Nitrogen 28 mg/dL (7-18) H Creatinine 0.6 MG/DL (0.55-1.30) Estimat Glomerular Filtration Rate > 60 mL/min (>60) Glucose Level 194 MG/DL (74-106) H Calcium Level 7.5 MG/DL (8.5-10.1) L Total Bilirubin 0.2 MG/DL (0.2-1.0) Aspartate Amino Transf (AST/SGOT) 56 U/L (15-37) H Alanine Aminotransferase (ALT/SGPT) 32 U/L (12-78) Alkaline Phosphatase 210 U/L (46-116) H Total Protein 6.0 G/DL (6.4-8.2) L Albumin 1.1 G/DL (3.4-5.0) L Globulin 4.9 g/dL Albumin/Globulin Ratio 0.2 (1.0-2.7) L Microbiology Date/Time Source Procedure Growth Status 09/04/19 23:45 Sputum Gram Stain - Final Resulted 09/04/19 23:45 Sputum Culture - Preliminary Staphylococcus Aureus Resulted Objective HEAD AND NECK: No JVD. Orally intubated. LUNGS: Coarse rhonchi. CARDIOVASCULAR: Irregular S1 and S2 with no gallop or murmur. ABDOMEN: Soft.PEG intact EXTREMITIES: 1 plus pitting edema. Paul Robles MD Sep 06, 2019 14:07
--- NOTE | 2019-09-06 14:25 | Surgery Progress Note ---
Surgery Progress Note Subjective Additional Comments worsening ill appearing fio2 100%, peep 12 prognosis guarded Objective Last 24 Hour Vital Signs Date Time Temp Pulse Resp B/P (MAP) Pulse Ox O2 Delivery O2 Flow Rate FiO2 09/06/19 11:29 89 24 100 09/06/19 09:29 88 20 100 09/06/19 08:31 82 116/58 09/06/19 07:29 85 22 100 Mechanical Ventilator 100 85 22 100 09/06/19 07:00 82 22 114/58 (76) 100 09/06/19 07:00 22 Mechanical Ventilator 100 09/06/19 06:30 80 22 09/06/19 06:00 80 22 115/63 (80) 100 09/06/19 06:00 22 Mechanical Ventilator 100 09/06/19 05:16 80 22 100 09/06/19 05:15 21 Mechanical Ventilator 100 09/06/19 05:00 21 Mechanical Ventilator 100 09/06/19 05:00 80 23 113/61 (78) 100 09/06/19 04:00 79 09/06/19 04:00 98.7 80 24 121/64 (83) 100 09/06/19 04:00 24 Mechanical Ventilator 100 09/06/19 04:00 100 09/06/19 04:00 Mechanical Ventilator 09/06/19 03:30 83 21 100 09/06/19 03:00 22 Mechanical Ventilator 100 09/06/19 03:00 83 20 125/66 (85) 95 09/06/19 02:00 21 Mechanical Ventilator 100 09/06/19 02:00 82 21 122/69 (86) 95 09/06/19 01:21 83 21 95 Mechanical Ventilator 100 84 21 100 09/06/19 01:00 83 21 128/67 (87) 89 09/06/19 01:00 22 Mechanical Ventilator 100 09/06/19 00:00 98.9 81 21 120/60 (80) 98 09/06/19 00:00 21 Mechanical Ventilator 100 09/06/19 00:00 Mechanical Ventilator 09/05/19 23:15 88 21 100 09/05/19 23:00 22 Mechanical Ventilator 100 09/05/19 23:00 80 34 113/63 (80) 96 09/05/19 22:20 88 21 100 09/05/19 22:00 80 21 122/53 (76) 96 09/05/19 22:00 21 Mechanical Ventilator 100 09/05/19 21:00 22 Mechanical Ventilator 100 09/05/19 21:00 88 21 118/59 (78) 100 09/05/19 20:52 88 120/53 09/05/19 20:00 Mechanical Ventilator 09/05/19 20:00 88 09/05/19 20:00 26 Mechanical Ventilator 100 09/05/19 20:00 99.0 88 21 99/65 (76) 99 09/05/19 20:00 100 09/05/19 19:59 89 21 100 Mechanical Ventilator 100 89 22 100 09/05/19 19:00 88 23 120/53 (75) 99 09/05/19 19:00 24 Mechanical Ventilator 100 09/05/19 18:30 98.8 09/05/19 18:30 91 22 119/59 (79) 99 09/05/19 18:00 24 Mechanical Ventilator 100 09/05/19 18:00 24 Mechanical Ventilator 100 09/05/19 18:00 98.8 91 23 120/57 (78) 100 09/05/19 17:00 90 23 125/69 (87) 95 09/05/19 17:00 24 Mechanical Ventilator 100 09/05/19 16:00 100 09/05/19 16:00 91 09/05/19 16:00 24 Mechanical Ventilator 100 09/05/19 16:00 Mechanical Ventilator 09/05/19 16:00 92 23 118/72 (87) 95 09/05/19 15:08 93 23 100 09/05/19 15:00 24 Mechanical Ventilator 100 09/05/19 15:00 92 24 130/74 (92) 93 09/05/19 14:30 91 24 127/68 (87) 93 I&O Intake and Output 09/05/19 09/06/19 19:00 07:00 Intake Total 1930 ml 1745 ml Output Total 415 ml 390 ml Balance 1515 ml 1355 ml Free Water 180 ml 150 ml IV Total 1150 ml 1145 ml Tube Feeding 600 ml 450 ml Output Urine Total 415 ml 390 ml # Bowel Movements 3 1 Dressing: other Wound: other Drains: other Cardiovascular: RSR Respiratory: decreased breath sounds Abdomen: soft, non-tender, present bowel sounds Extremities: no cyanosis Laboratory Tests Test 09/06/19 12:25 White Blood Count 11.0 K/UL (4.8-10.8) H Red Blood Count 3.08 M/UL (4.70-6.10) L Hemoglobin 9.7 G/DL (14.2-18.0) L Hematocrit 28.9 % (42.0-52.0) L Mean Corpuscular Volume 94 FL (80-99) Mean Corpuscular Hemoglobin 31.5 PG (27.0-31.0) H Mean Corpuscular Hemoglobin Concent 33.6 G/DL (32.0-36.0) Red Cell Distribution Width 13.8 % (11.6-14.8) Platelet Count 117 K/UL (150-450) L Mean Platelet Volume 9.0 FL (6.5-10.1) Neutrophils (%) (Auto) % (45.0-75.0) Lymphocytes (%) (Auto) % (20.0-45.0) Monocytes (%) (Auto) % (1.0-10.0) Eosinophils (%) (Auto) % (0.0-3.0) Basophils (%) (Auto) % (0.0-2.0) Neutrophils % (Manual) Pending Lymphocytes % (Manual) Pending Platelet Estimate Pending Platelet Morphology Pending Sodium Level 141 MMOL/L (136-145) Potassium Level 5.4 MMOL/L (3.5-5.1) H Chloride Level 101 MMOL/L (98-107) Carbon Dioxide Level 38 MMOL/L (21-32) H Anion Gap 2 mmol/L (5-15) L Blood Urea Nitrogen 28 mg/dL (7-18) H Creatinine 0.6 MG/DL (0.55-1.30) Estimat Glomerular Filtration Rate > 60 mL/min (>60) Glucose Level 194 MG/DL (74-106) H Calcium Level 7.5 MG/DL (8.5-10.1) L Total Bilirubin 0.2 MG/DL (0.2-1.0) Aspartate Amino Transf (AST/SGOT) 56 U/L (15-37) H Alanine Aminotransferase (ALT/SGPT) 32 U/L (12-78) Alkaline Phosphatase 210 U/L (46-116) H Total Protein 6.0 G/DL (6.4-8.2) L Albumin 1.1 G/DL (3.4-5.0) L Globulin 4.9 g/dL Albumin/Globulin Ratio 0.2 (1.0-2.7) L Plan Problems: (1) Decubitus skin ulcer Assessment & Plan: Patient presented on admission with Sacral DTPI. Base of wound is purple with maroon borders. Unstageable pressure injury Plantar L heel . Base of wound is necrotic with marginal erythema along borders. Non-blanching erythema R heel. Sacral DTPI now evolving since admission. Several opening within base of wound. No exudate noted. Open areas are moist and jason. Surrounding base of wound is purple with erythema along borders. Unstageable Pressure injury Plantar L heel. Base of wound is necrotic. Edges adherent to base of wound. Tx.Plan: Cleanse Sacral wound with Saline. Apply Therahoney. Apply Moisture Barrier Paste periwound. Cover with Optifoam drsg. Change every 3 days and prn. Apply Betadine to Plantar L heel. Cover with Optifoam drsg. Change every 3 days and prn. Apply Cavilon Skin Barrier R heel. Cover with Optifoam drsg. Change every 7 days and prn. Reposition at least every 2hours or as tolerated Off-load heels with pillow. Nutritional optimization will follow with recs air mattress once off isolation DAILY ESTIMATED NEEDS: Needs based on Critical care, Wounds/ 53kg abw 22-28 kcals/kg 6620-7982 total kcals 1.25-2 g protein/kg 66-106 g total protein 25-30 mL/kg 5763-1955 total fluid mLs NUTRITION DIAGNOSIS: * Swallowing difficulty R/T dysphagia as evidenced by PEG dep, s/p intubation, on GT feeding. * Increased kcal/prot needs R/T wound healing as evidenced by pt admitted w/ evolving DTPI sacral wound and unstageable lt heel wound. CURRENT TF:Glucerna 1.2 @50ml/hr x22 hrs ENTERAL NUTRITION RECOMMENDATIONS: Glucerna 1.2 @ 50ml/hr x 22 hrs (hold 1 hr before and after Dilantin QD) to provide 1100ml, 1320kcal, 66g prot, 886ml free water * Maintain Glucerna 1.2 for carb control, BGs elevated. * Hold 1 hr before and after Dilantin med * HOB over 30 degrees/ without IVF, H20 flush of 150ml q 6 hrs FOR 24 HRS TF RUN WITHOUT DILANTIN (Dilantin currently held) : okay to keep the same TF rate of Glucerna 1.2 @ 50ml/hr x 24 hrs to provide 1200ml, 1440kcal, 72g prot 966ml free water -> will still meet 100% est kcal/prot needs ADDITIONAL RECOMMENDATIONS: * Per SNF record, ht is 60", wt is 149lbs (08/14/19) Rec calibrated bedscale wt * Rec NISS w/ TF: BGs elevated, now on Solumedrol * Wound healing: add Vit C 500mg QD + Giancarlo 1pkt BID via PEG * Monitor lytes, replete as needed . (2) Multi-infarct dementia (3) Uncontrolled seizures (4) History of CVA (cerebrovascular accident) (5) Acute encephalopathy (6) Aspiration pneumonia Assessment & Plan: Interval worsening of aeration with increasing interstitial and patchy bilateral airspace disease. Findings may be on the basis of worsening CHF/pulmonary edema although multifocal pneumonia must also be considered. Endotracheal tube injection is a central line remain in place. 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 worsening vent worse prognosis guarded (7) Respiratory failure (8) Suspected 2019 novel coronavirus infection Assessment & Plan: testing ? (9) Abdominal distension Assessment & Plan: noted +BM unlikely obstruction will monitor Sundeep Benavidez Sep 06, 2019 14:25
--- NOTE | 2019-09-06 14:39 | NUR ---
CASE MANAGEMENT: REVIEW 09/06/2019 SI:Hypoxemic acute respiratory failure 2/2 COVID T 98.7 HR 87 RR 24 B/P 121/56 SATS 100% ON MECH VENT FIO2 100 LABS: WBC 11 K 5.4 CO2 38 BUN 28 GLU 194 CA 7.5 AST 56 ALP 210 IS:SOLU MEDROL IV Q12H LOPRESSOR GT Q12H POLYMYXIN IV Q12H LINEZOLID IV Q12H DILANTIN GT QD KEPPRA GT Q12H FENTANYL IV PER PARAMETERS MEROPENEM IV Q8H ICU
--- NOTE | 2019-09-06 19:10 | NUR ---
NURSE NOTES: pt report received from Albert RN. pt remains stable. pt is alert and oriented times 1. pt is Oral trach vented, sating at 97%, no acute signs symptoms of resp distress noted. 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 pt bed is low, locked, armed, bed rails up times 3. will follow plan of care.
--- NOTE | 2019-09-06 19:39 | NUR ---
NURSE NOTES: contacted [facility] to report current potassium level of 5.4. awaiting new orders.
--- NOTE | 2019-09-06 20:39 | Infectious Diseases Prog Note ---
Assessment/Plan Assessment/Plan ASSESSMENT AND PLAN: 1. covid-19 virus infection, pna, sepsis, fevers, leukocytosis, vent, respiratory failure MRSA pneumonia rash - ? vancomycin, ? zosyn - abx held - rash improved ? bowel obstruction, ? ileus fungemia risk chest x-ray worse - ? covid-19 worsening vs multi drug resistant gram neg - zyvox, meropenem add polymyxin for multi drug resistant gram neg coverage - f/u on surveillance sputum culture - staph aureus so far - f/u on labs and chest x-ray, bc/uc - negative, sc - mrsa - supportive care, ivf, vent - d/w RN - critical - surgery f//u - icu supportive care - on steroids - d/w RN - chest x-ray slt better, fevers better 2. Respiratory failure, on vent. 3. History of hyperlipidemia. 4. History of hypertension. 5. Atherosclerotic heart disease. 6. CAD. 7. COPD. 8. Dementia. 9. Nonverbal at baseline. 10. History of seizures. 11. No known drug allergies. 12. Social history negative. 13. Family history noncontributory. 14. MAR was noted. 15. Case discussed with RN. 16. Continue treatment per primary consultants. Subjective Constitutional: Reports: fatigue, other - on vent ; Denies: fever HEENT: Reports: congestion Respiratory: Reports: shortness of breath Cardiovascular: Reports: other - no pressors Gastrointestinal/Abdominal: Denies: nausea, vomiting, diarrhea Genitourinary: Reports: other Neurologic: Reports: weakness, other - weak, lethargic Psychiatric: Reports: other - NA Endocrine: Reports: other - NA Hematologic: Denies: bleeding Musculoskeletal: Reports: other - NA Allergies: Coded Allergies: No Known Allergies (Unverified , 02/29/16) Objective Vital Signs Last 24 Hour Vital Signs Date Time Temp Pulse Resp B/P (MAP) Pulse Ox O2 Delivery O2 Flow Rate FiO2 09/06/19 19:30 96 27 126/57 (80) 100 09/06/19 19:11 88 29 100 Mechanical Ventilator 100 90 22 100 09/06/19 19:00 92 30 130/67 (88) 100 09/06/19 18:30 97 25 129/66 (87) 99 09/06/19 18:00 99.0 95 25 125/70 (88) 99 09/06/19 17:30 93 24 127/66 (86) 100 09/06/19 17:00 92 23 122/67 (85) 99 09/06/19 16:49 90 23 100 09/06/19 16:30 92 24 121/56 (77) 100 09/06/19 16:00 92 23 123/63 (83) 99 09/06/19 16:00 Mechanical Ventilator 09/06/19 16:00 100 09/06/19 16:00 96 09/06/19 15:30 92 25 120/70 (87) 97 09/06/19 15:12 80 22 98 Mechanical Ventilator 100 80 22 100 09/06/19 15:00 Endotracheal Tube 09/06/19 15:00 91 24 121/65 (83) 98 09/06/19 14:00 89 24 120/69 (86) 100 09/06/19 13:30 90 23 119/69 (86) 100 09/06/19 13:00 89 23 119/65 (83) 100 09/06/19 13:00 Mechanical Ventilator 09/06/19 12:00 88 09/06/19 12:00 98.7 87 24 121/56 (77) 100 09/06/19 12:00 100 09/06/19 12:00 Mechanical Ventilator 09/06/19 11:30 87 23 119/72 (88) 98 09/06/19 11:29 89 24 100 09/06/19 11:00 Mechanical Ventilator 09/06/19 11:00 86 23 125/67 (86) 99 09/06/19 10:30 85 24 121/64 (83) 99 09/06/19 10:00 84 23 121/61 (81) 99 09/06/19 09:30 86 23 114/59 (77) 97 09/06/19 09:29 88 20 100 09/06/19 09:00 Endotracheal Tube 09/06/19 09:00 85 22 112/57 (75) 97 09/06/19 08:31 82 116/58 09/06/19 08:30 83 21 119/56 (77) 100 09/06/19 08:00 84 09/06/19 08:00 Mechanical Ventilator 09/06/19 08:00 100 09/06/19 08:00 99.1 83 22 116/58 (77) 100 09/06/19 08:00 Mechanical Ventilator 09/06/19 07:29 85 22 100 Mechanical Ventilator 100 85 22 100 09/06/19 07:00 82 22 114/58 (76) 100 09/06/19 07:00 22 Mechanical Ventilator 100 09/06/19 06:30 80 22 09/06/19 06:00 80 22 115/63 (80) 100 09/06/19 06:00 22 Mechanical Ventilator 100 09/06/19 05:16 80 22 100 09/06/19 05:15 21 Mechanical Ventilator 100 09/06/19 05:00 21 Mechanical Ventilator 100 09/06/19 05:00 80 23 113/61 (78) 100 09/06/19 04:00 79 09/06/19 04:00 98.7 80 24 121/64 (83) 100 09/06/19 04:00 24 Mechanical Ventilator 100 09/06/19 04:00 100 09/06/19 04:00 Mechanical Ventilator 09/06/19 03:30 83 21 100 09/06/19 03:00 22 Mechanical Ventilator 100 09/06/19 03:00 83 20 125/66 (85) 95 09/06/19 02:00 21 Mechanical Ventilator 100 09/06/19 02:00 82 21 122/69 (86) 95 09/06/19 01:21 83 21 95 Mechanical Ventilator 100 84 21 100 09/06/19 01:00 83 21 128/67 (87) 89 09/06/19 01:00 22 Mechanical Ventilator 100 09/06/19 00:00 98.9 81 21 120/60 (80) 98 09/06/19 00:00 21 Mechanical Ventilator 100 09/06/19 00:00 Mechanical Ventilator 09/05/19 23:15 88 21 100 09/05/19 23:00 22 Mechanical Ventilator 100 09/05/19 23:00 80 34 113/63 (80) 96 09/05/19 22:20 88 21 100 09/05/19 22:00 80 21 122/53 (76) 96 09/05/19 22:00 21 Mechanical Ventilator 100 09/05/19 21:00 22 Mechanical Ventilator 100 09/05/19 21:00 88 21 118/59 (78) 100 09/05/19 20:52 88 120/53 Height (Feet): 5 Height (Inches): 8.00 Weight (Pounds): 168 General Appearance: no acute distress, other - lethargic, on vent HEENT: normocephalic, atraumatic, anicteric Respiratory/Chest: accessory muscle use, rhonchi - bilaterally Cardiovascular: normal rate, regular rhythm, no gallop/murmur, no JVD Abdomen: normal bowel sounds, soft, non tender, no organomegaly Genitourinary: other - + verduzco - urine slt cloudy Extremities: no cyanosis Skin: no rash Neurologic/Psychiatric: motor weakness, other - lethargic, weak Lymphatic: no neck adenopathy Musculoskeletal: no effusion Objective Procedure: XRAY Chest 1v - 08/23/19 - Indication: Chest pain Technique: One view of the chest Comparison: 1 1/2 hours earlier Findings: Interim placement of a right jugular central venous catheter, tip which projects at the level of the high right atrium. No gross pneumothorax. Interim endotracheal intubation, endotracheal tube tip projecting approximately 6 cm above the darline. Right upper lobe infiltrate is unchanged. Left retrocardiac opacification and likely left pleural effusion are unchanged. Impression: Endotracheal intubation Satisfactory placement right jugular central venous catheter, no radiographically evident complication Other stable findings as described 08/25/19 - Procedure: XRAY Chest 1v EXAM: XR Chest, 1 View CLINICAL HISTORY: INTRA-OP TECHNIQUE: Frontal view of the chest. COMPARISON: No relevant prior studies available. FINDINGS: Redemonstrated endotracheal tube, appropriately positioned, the tip projecting above the darline. Right internal jugular central venous catheter tip is again in the upper right atrium. There is no pneumothorax. Bilateral pulmonary consolidation is again noted. This is most confluent in the left midlung and right upper lobe, similar appearance to prior. 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 Chronic rib deformities as well as skeletal degenerative changes. IMPRESSION: No significant interval change in extensive bilateral airspace infiltrates. Chest x-ray - 08/26/19 - Procedure: XRAY Chest 1v Indication: Shortness of breath Technique: One view of the chest Comparison: none Findings: Bilateral diffuse infiltrates appears slightly more extensive than on the previous study. Stable satisfactory positions of endotracheal tube and right jugular central venous catheter. Gastrostomy is demonstrated. Impression: Over one day, interim slight worsening of bilateral infiltrates Other stable findings as described KUB - 08/29/19 - Findings: There are some mildly dilated small bowel loops in the lower midabdomen. A more dilated gas-filled segment of bowel is seen to the right of midline. Uncertain as to whether this represents a very dilated small bowel loop or an upper limits of normal caliber segment of sigmoid colon. There is a gastrostomy noted. There is a Verduzco catheter noted. Impression: Mildly dilated small bowel loops in the lower midabdomen, nonspecific, could indicate ileus versus early obstructive changes Focal segment of either very dilated small bowel or mildly prominent colon in the right upper pelvis, favor the latter Gastrostomy and Verduzco catheter incidentally noted Chest x-ray 08/28/19 - Findings: Heart size is stable. Atherosclerotic calcifications again noted in the aorta. Endotracheal tube stable and satisfactory position. Right transjugular central line has its tip in the region of the high right atrium. A gastrostomy tube is noted. There is interval worsening of aeration with increasing interstitial and patchy bilateral airspace disease. Small layering left pleural effusion not excluded. No evidence of pneumothorax. Again is evidence of prior cardiac surgery with median sternotomy and prosthetic cardiac valve. Osseous structures are stable. IMPRESSION: Interval worsening of aeration with increasing interstitial and patchy bilateral airspace disease. Findings may be on the basis of worsening CHF/pulmonary edema although multifocal pneumonia must also be considered. Endotracheal tube injection is a central line remain in place. 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 Chest -x-ray - 08/31/19 - IMPRESSION: 1. No significant change in bilateral multilobar peripheral opacities and consolidation. 2. Possible small layering left pleural effusion. 3. Pulmonary vascular congestion. Chest x-ray - 09/04/19 - Procedure: XRAY Chest 1v Indication: Dyspnea Technique: One view of the chest Comparison: 09/03/2019 Findings: Bilateral extensive dense consolidation appears slightly worse than on the previous study. Stable satisfactory position of endotracheal tube and right jugular central venous catheter. The heart size is borderline enlarged. Impression: Worsening bilateral infiltrates, over one day Chest x-ray - 09/06/19 - Procedure: XRAY Chest 1v Indication: Dyspnea Technique: One view of the chest Comparison: 09/04/2019 Findings: Extensive bilateral diffuse interstitial and airspace disease is again demonstrated, with consolidation appearing slightly less dense than on the prior exam. Stable satisfactory positions of endotracheal tube, right jugular central venous catheter. The heart remains enlarged. Again demonstrated is evidence of prior median sternotomy. Impression: Bilateral extensive diffuse interstitial and airspace infiltrates, appearing slightly improved since prior exam of 09/04/2019 Microbiology Date/Time Source Procedure Growth Status 08/27/19 11:45 Blood Blood Culture - Final NO GROWTH AFTER 5 DAYS Complete 09/04/19 23:45 Sputum Gram Stain - Final Resulted 09/04/19 23:45 Sputum Culture - Preliminary Staphylococcus Aureus Resulted 08/30/19 04:30 Urine,Catheterized Urine Culture - Final NO GROWTH AFTER 48 HOURS Complete 08/19/19 18:30 Rectum - Final NO CARBAPENEM-RESISTANT ENTEROBACTERI... Complete Microbiology Date/Time Source Procedure Growth Status 09/04/19 23:45 Sputum Gram Stain - Final Resulted 09/04/19 23:45 Sputum Culture - Preliminary Staphylococcus Aureus Resulted Laboratory Tests Test 09/06/19 12:25 09/06/19 14:40 White Blood Count 11.0 K/UL (4.8-10.8) H Red Blood Count 3.08 M/UL (4.70-6.10) L Hemoglobin 9.7 G/DL (14.2-18.0) L Hematocrit 28.9 % (42.0-52.0) L Mean Corpuscular Volume 94 FL (80-99) Mean Corpuscular Hemoglobin 31.5 PG (27.0-31.0) H Mean Corpuscular Hemoglobin Concent 33.6 G/DL (32.0-36.0) Red Cell Distribution Width 13.8 % (11.6-14.8) Platelet Count 117 K/UL (150-450) L Mean Platelet Volume 9.0 FL (6.5-10.1) Neutrophils (%) (Auto) % (45.0-75.0) Lymphocytes (%) (Auto) % (20.0-45.0) Monocytes (%) (Auto) % (1.0-10.0) Eosinophils (%) (Auto) % (0.0-3.0) Basophils (%) (Auto) % (0.0-2.0) Differential Total Cells Counted 100 Neutrophils % (Manual) 90 % (45-75) H Lymphocytes % (Manual) 6 % (20-45) L Monocytes % (Manual) 4 % (1-10) Eosinophils % (Manual) 0 % (0-3) Basophils % (Manual) 0 % (0-2) Band Neutrophils 0 % (0-8) Platelet Estimate Decreased L Platelet Morphology Normal Hypochromasia 2+ Anisocytosis 1+ Spherocytes 1+ Sodium Level 141 MMOL/L (136-145) Potassium Level 5.4 MMOL/L (3.5-5.1) H Chloride Level 101 MMOL/L (98-107) Carbon Dioxide Level 38 MMOL/L (21-32) H Anion Gap 2 mmol/L (5-15) L Blood Urea Nitrogen 28 mg/dL (7-18) H Creatinine 0.6 MG/DL (0.55-1.30) Estimat Glomerular Filtration Rate > 60 mL/min (>60) Glucose Level 194 MG/DL (74-106) H Calcium Level 7.5 MG/DL (8.5-10.1) L Total Bilirubin 0.2 MG/DL (0.2-1.0) Aspartate Amino Transf (AST/SGOT) 56 U/L (15-37) H Alanine Aminotransferase (ALT/SGPT) 32 U/L (12-78) Alkaline Phosphatase 210 U/L (46-116) H Total Protein 6.0 G/DL (6.4-8.2) L Albumin 1.1 G/DL (3.4-5.0) L Globulin 4.9 g/dL Albumin/Globulin Ratio 0.2 (1.0-2.7) L Arterial Blood pH 7.346 (7.350-7.450) Arterial Blood Partial Pressure CO2 75.0 mmHg (35.0-45.0) *H Arterial Blood Partial Pressure O2 69.2 mmHg (75.0-100.0) L Arterial Blood HCO3 40.1 mmol/L (22.0-26.0) *H Arterial Blood Oxygen Saturation 93.1 % (95-100) L Arterial Blood Base Excess 12 (-2-2) *H Jag Test Positive Current Medications Medications (Trade) Dose Ordered Sig/Vanessa Route PRN Reason Start Time Stop Time Status Last Admin Dose Admin Acetaminophen (Tylenol) 650 mg Q4H PRN RECTAL Temp >100.5 09/01/19 01:30 10/01/19 01:29 09/03/19 05:35 Albuterol Sulfate (Proventil MDI) 2 puff Q6HRT INH 08/22/19 13:00 11/20/19 12:59 09/06/19 19:05 Apixaban (Eliquis) 2.5 mg BID GT 08/26/19 18:00 11/18/19 17:59 09/06/19 17:43 Chlorhexidine Gluconate (Antonella-Hex 2%) 1 applic DAILY@2000 TOPIC 08/21/19 20:00 11/19/19 19:59 09/05/19 20:51 Fentanyl Citrate 2500 mcg/Sodium Chloride 250 ml @ 0 mls/hr Q24H IV 09/04/19 20:30 09/11/19 20:29 09/06/19 05:15 Hydralazine HCl (Apresoline) 10 mg Q2H PRN IV Systolic >180 08/26/19 15:45 11/24/19 15:44 Ipratropium [place] (Atrovent Inh) 1 puffs Q6HRT INH 08/22/19 13:00 09/21/19 12:59 09/06/19 19:05 Levetiracetam (Keppra) 1,500 mg Q12HR GT 08/20/19 21:00 09/19/19 20:59 09/06/19 08:30 Linezolid 300 ml @ 300 mls/hr EVERY 12 HOURS IVPB 09/04/19 21:00 09/12/19 20:59 09/06/19 08:28 Meropenem 1 gm/ Sodium Chloride 55 ml @ 110 mls/hr Q8HR IVPB 09/04/19 22:00 09/10/19 21:59 09/06/19 13:34 Methylprednisolone Sodium Succinate (Solu-MEDROL) 20 mg EVERY 12 HOURS IVP 08/31/19 21:00 11/23/19 20:59 09/06/19 08:32 Metoprolol Tartrate (Lopressor) 100 mg EVERY 12 HOURS GT 09/02/19 21:00 12/01/19 20:59 09/06/19 08:31 Midazolam HCl (Versed 2mg/2ml vial) 1 mg Q2H PRN IVP agitation 08/26/19 12:45 11/24/19 12:44 08/30/19 13:30 Pantoprazole (Protonix) 40 mg DAILY IVP 09/03/19 09:00 10/03/19 08:59 09/06/19 08:32 Phenytoin (Dilantin) 250 mg DAILY GT 08/21/19 09:00 09/20/19 08:59 Future hold 09/06/19 08:30 Polymyxin B Sulfate 968623 units/Dextrose 500 ml @ 500 mls/hr EVERY 12 HOURS IVPB 09/04/19 22:00 09/11/19 21:59 09/06/19 08:29 Tamsulosin HCl (Flomax) 0.4 mg BEDTIME ORAL 08/20/19 21:00 09/19/19 20:59 09/05/19 20:51 Gwen Velásquez MD Sep 06, 2019 20:39
[2019-09-06] MEDS: Dyna-Hex 2% Top Sol 2oz TOPIC SCH (21:05)
[2019-09-06] MEDS: Tamsulosin 0.4mg cap ORAL SCH (21:11)
[2019-09-06] MEDS ORDERED: Sodium Polystyrene Sulfonate 15gm Powder ORAL SCH (22:30)
[2019-09-07] VITALS (40 sets, daily range): BP systolic 105–160; BP diastolic 51–79
[2019-09-07] MEDS: Albuterol 90mcg Inhaler 8gm INH SCH ×4 (01:02→19:06)
[2019-09-07] MEDS: Ipratropium Bromide Inhaler INH SCH ×4 (01:02→19:06)
[2019-09-07] MEDS: Meropenem 1 GM in NS 55 ML IVPB SCH ×3 (05:47→21:52)
[2019-09-07 05:51] LABS: HEMATOCRIT 30.8 % (42.0-52.0); HEMOGLOBIN 10.3 G/DL (14.2-18.0); MEAN CORPUSCULAR VOLUME 93 FL (80-99); PLATELET COUNT 108 K/UL (150-450); RED BLOOD COUNT 3.32 M/UL (4.70-6.10); RED CELL DISTRIBUTION WIDTH 13.4 % (11.6-14.8); WHITE BLOOD COUNT 13.7 K/UL (4.8-10.8)
[2019-09-07 06:19] LABS: ALANINE AMINOTRANSFERASE 52 U/L (12-78); ALBUMIN 1.2 G/DL (3.4-5.0); ALBUMIN/GLOBULIN RATIO 0.3 (1.0-2.7); ALKALINE PHOSPHATASE 251 U/L (46-116); ANION GAP 2 mmol/L (5-15); ASPARTATE AMINO TRANSFERASE 118 U/L (15-37); BILIRUBIN,TOTAL 0.3 MG/DL (0.2-1.0); BLOOD UREA NITROGEN 30 mg/dL (7-18); CALCIUM 7.8 MG/DL (8.5-10.1); CARBON DIOXIDE 35 MMOL/L (21-32); CHLORIDE 99 MMOL/L (98-107); CREATININE 0.7 MG/DL (0.55-1.30); POTASSIUM 5.7 MMOL/L (3.5-5.1); SODIUM 136 MMOL/L (136-145)
--- NOTE | 2019-09-07 07:12 | NUR ---
RESPIRATORY NOTE: Patient received mechanically ventilated on PB 840 with current ordered vent settings. Patient is orally intubated with a size 7.5 ETT tube at 26cm at the lip line. ETT tube is secured with a commercial holster. Vent alarms are functional, audible, and the vent is connected to a red outlet. There is an ambu bag available at the bedside. Will continue to monitor.
--- NOTE | 2019-09-07 07:22 | NUR ---
HAND-OFF: Report given to Todd Price RN. Pt remains stable.
--- NOTE | 2019-09-07 07:40 | NUR ---
NURSE NOTES: late entry: received report pt in bed. sedated. pupils unable to determine. hypoactive gag, responsive to deep pain. bilateral radial pulses weak. dependent edema noted, scrotal edema noted. pt intubated 7.5, 25cm lip. settings: ac 18, 450, ps 12, 100% fi02. abdomen distended, hypoactive bowel sounds. gt. tube feeding glu1.2, running at 50ml/hr. no bm. skin- see assessment. rt ij tlc. dressing dry and intact. fentyal running at 180mcg/min. febrile 100.5. pt on airborne isolation. will continue to monitor pt.
--- NOTE | 2019-09-07 07:44 | Pulmonolgy Critical Care Note ---
Sera Bacon OUTDOOR ADVENTURE INSTRUCTOR 09/07/19 0744: Critical Care - Asmt/Plan Assessment/Plan: ASSESSMENT Acute hypoxemic and hypercapnic respiratory failure ( required intubation) Suspected 2019 novel coronavirus infection Pneumonia History of CVA (cerebrovascular accident) Acute encephalopathy Multi-infarct dementia Uncontrolled seizures Atrial fibrillation and flutter Assessment/Plan: PEEP up to 12 since 09/04 due to worsening hypoxemia ABG and CXR 09/05 noted, keep settings as is ABG for this am pending , will fup with results Continue ventilatory support/hold off on weaning ---> AC 18 TV 450, FIo2 100% PEEP 12 ; wean O2 Monitor gas exchange Proning 12hr on/off (if able) MDI in line with Vent Continue SM 20 IV BID (D11) and taper soon Completed 5 days of Plaquenil Zyvox/Candis/Polymyxin per ID, SCX + 08/26 MRSA, SCX 09/03 + MRSA Monitor CRP and ferritin D/W pharmacy RE: Tociluzumab - per pharmacist on national shortage and cannot get, will continue to follow up Remdesivir limited to trial, cannot get under compassionate care Monitor volumes and renal function ICU sedation: Fent gtt for RASS -2 with PRN Versed F/U neuro recs, continue AED's Monitor LFT's, TF's with strict aspiration precautions DVT Px: Fanny FC, continue to discuss GOC Overall prognosis poor given gravity of his condition Disposition: keep in ICU Time Spent (Minutes): 40 Notes 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, 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, ID, neuro Discussed with: nurses, consultants case discussed and evaluated by supervising physician Critical Care - Objective Last 24 Hour Vital Signs Date Time Temp Pulse Resp B/P (MAP) Pulse Ox O2 Delivery O2 Flow Rate FiO2 09/07/19 07:00 92 27 115/53 (73) 99 09/07/19 06:30 95 27 117/55 (75) 100 09/07/19 06:30 94 29 09/07/19 06:00 97 29 119/53 (75) 100 09/07/19 05:30 94 29 116/60 (78) 100 09/07/19 05:00 94 24 122/64 (83) 100 09/07/19 04:30 95 30 115/71 (86) 100 09/07/19 04:00 100 09/07/19 04:00 Mechanical Ventilator 09/07/19 04:00 100 09/07/19 04:00 98.7 96 31 114/64 (81) 100 09/07/19 03:30 97 30 121/61 (81) 100 09/07/19 03:00 100 29 114/57 (76) 98 09/07/19 02:41 101 29 100 09/07/19 02:30 101 29 119/71 (87) 98 09/07/19 02:00 101 29 123/68 (86) 98 09/07/19 01:30 102 29 126/68 (87) 98 09/07/19 01:02 101 32 100 Mechanical Ventilator 100 103 32 100 09/07/19 01:00 102 29 127/67 (87) 99 09/07/19 00:30 101 30 133/71 (91) 98 09/07/19 00:00 100 09/07/19 00:00 95 09/07/19 00:00 Mechanical Ventilator 09/07/19 00:00 28 Endotracheal Tube 100 09/07/19 00:00 99.2 101 30 133/71 (91) 97 09/06/19 23:30 99 30 131/68 (89) 94 09/06/19 23:00 95 29 135/68 (90) 95 09/06/19 23:00 28 Endotracheal Tube 100 09/06/19 22:49 93 31 100 09/06/19 22:30 94 31 138/73 (94) 93 09/06/19 22:00 91 30 142/68 (92) 96 09/06/19 22:00 29 Endotracheal Tube 100 09/06/19 21:37 99.0 09/06/19 21:30 94 30 133/67 (89) 100 09/06/19 21:11 99 130/74 09/06/19 21:07 27 Endotracheal Tube 100 09/06/19 21:07 27 Mechanical Ventilator 100 09/06/19 21:00 96 37 131/61 (84) 100 09/06/19 20:30 97 27 130/74 (92) 99 09/06/19 20:00 100 09/06/19 20:00 Mechanical Ventilator 09/06/19 20:00 95 09/06/19 20:00 98.8 96 26 130/63 (85) 100 09/06/19 20:00 28 Endotracheal Tube 100 09/06/19 19:30 96 27 126/57 (80) 100 09/06/19 19:11 88 29 100 Mechanical Ventilator 100 90 22 100 09/06/19 19:00 92 30 130/67 (88) 100 09/06/19 19:00 22 Endotracheal Tube 100 09/06/19 18:30 97 25 129/66 (87) 99 09/06/19 18:00 99.0 95 25 125/70 (88) 99 09/06/19 17:30 93 24 127/66 (86) 100 09/06/19 17:00 92 23 122/67 (85) 99 09/06/19 16:49 90 23 100 09/06/19 16:30 92 24 121/56 (77) 100 09/06/19 16:00 92 23 123/63 (83) 99 09/06/19 16:00 Mechanical Ventilator 09/06/19 16:00 100 09/06/19 16:00 96 09/06/19 15:30 92 25 120/70 (87) 97 09/06/19 15:12 80 22 98 Mechanical Ventilator 100 80 22 100 09/06/19 15:00 Endotracheal Tube 09/06/19 15:00 91 24 121/65 (83) 98 09/06/19 14:00 89 24 120/69 (86) 100 09/06/19 13:30 90 23 119/69 (86) 100 09/06/19 13:00 89 23 119/65 (83) 100 09/06/19 13:00 Mechanical Ventilator 09/06/19 12:00 88 09/06/19 12:00 98.7 87 24 121/56 (77) 100 09/06/19 12:00 100 09/06/19 12:00 Mechanical Ventilator 09/06/19 11:30 87 23 119/72 (88) 98 09/06/19 11:29 89 24 100 09/06/19 11:00 Mechanical Ventilator 09/06/19 11:00 86 23 125/67 (86) 99 09/06/19 10:30 85 24 121/64 (83) 99 09/06/19 10:00 84 23 121/61 (81) 99 09/06/19 09:30 86 23 114/59 (77) 97 09/06/19 09:29 88 20 100 09/06/19 09:00 Endotracheal Tube 09/06/19 09:00 85 22 112/57 (75) 97 09/06/19 08:31 82 116/58 09/06/19 08:30 83 21 119/56 (77) 100 09/06/19 08:00 84 09/06/19 08:00 Mechanical Ventilator 09/06/19 08:00 100 09/06/19 08:00 99.1 83 22 116/58 (77) 100 09/06/19 08:00 Mechanical Ventilator Objective: Status: sedated Condition: critical HEENT: atraumatic, normocephalic, OP with ET in place, intact, Neck: RIJ CL intact Lungs: scattered rhonchi Heart: HR/BP stable, regular, SR with 1 st degree AV block Abdomen: soft, non-tender, active bowel sounds, feeding tube, : Swartz, scrotal edema Extremities: no edema Micro: Microbiology Date/Time Source Procedure Growth Status 09/04/19 23:45 Sputum Gram Stain - Final Complete 09/04/19 23:45 Sputum Culture - Final Staphylococcus Aureus - Mrsa Complete Critical Care - Subjective ROS Limited/Unobtainable: Yes Interval Events: remains intubated on PEEP12 sedated, on Fentanyl gtt leukocytosis with some trend up, afebrile AST trending up K-5.7 Condition: critical IV Access: central - RIJ in palce, intact EKG Rhythm: Sinus Rhythm - SR with 1 st degree AV block FI02: 100 Vent Support Breath Rate: 18 Vent Support Mode: AC Vent Tidal Volume: 450 Sputum Amount: Scant PEEP: 12.0 PIP: 42 Secretions: small amount, thick consistency, yellow color Drips: Fentanyl gtt 180 mcg/hr Tube Feeding Amount: 50 I&O: Intake and Output 09/06/19 09/07/19 19:00 07:00 Intake Total 1740 ml 1214 ml Output Total 425 ml 400 ml Balance 1315 ml 814 ml Free Water 150 ml IV Total 1080 ml 464 ml Tube Feeding 600 ml 600 ml Other 60 ml Output Urine Total 425 ml 400 ml # Bowel Movements 1 CXR: CXR 09/05 Bilateral extensive diffuse interstitial and airspace infiltrates, appearing slightly improved since prior exam of 09/04/2019 ET-Tube: 7.5 ET Position: 25 David Nash MD 4/26/20 2042: Critical Care - Asmt/Plan Assessment/Plan: Patient seen and examined with OUTDOOR ADVENTURE INSTRUCTOR. Case d/w RESIDENT CARE TECHNICIAN, RT and team. Agree with A& P as outlined above as it reflects our joint deliberations. Sera Bacon NP Sep 07, 2019 07:44 David Nash MD Sep 08, 2019 20:42
[2019-09-07] MEDS: fentaNYL Citrate 2500mcg in NS 250ml IV SCH (08:02)
[2019-09-07] MEDS: Solu-MEDROL 40mg Inj IVP SCH ×2 (08:38→20:40)
[2019-09-07] MEDS: Pantoprazole Inj IVP SCH (08:38)
[2019-09-07] MEDS: Polymyxin B Sulfate 500,000 UNITS in D5W 500ml 500 ML IVPB SCH ×2 (08:38→21:37)
[2019-09-07] MEDS: Phenytoin Susp 100mg/4ml GT SCH (08:39)
[2019-09-07] MEDS: levETIRAcetam 500mg/5ml Liquid GT SCH ×2 (08:40→20:39)
[2019-09-07] MEDS: Metoprolol Tartrate 100mg tab GT SCH ×2 (08:41→20:40)
[2019-09-07] MEDS: Eliquis 2.5mg tablet GT SCH ×2 (08:42→18:22)
--- NOTE | 2019-09-07 12:00 | NUR ---
NURSE NOTES: pt cleaned. repositioned. suctioned. cooling blanket on. pt febrile. tube feed, no residuals. MD Nash here to see pt.
--- NOTE | 2019-09-07 13:00 | NUR ---
NURSE NOTES: MD Nash received order to change pt rate to ac 20. will inform R.T.
--- NOTE | 2019-09-07 15:56 | Cardiac Electrophysiology PN ---
Assessment/Plan Assessment/Plan 1. Paroxysmal Atrial flutter with rapid ventricular response. In SR with first degree AVB but now atrial fib On Eliquis 2.5 mg bid and metoprolol 100 mg bid. 2. Accelerated hypertension with blood pressure of 200. Continue metoprolol 100 mg b.i.d. and p.r.n. IV hydralazine. 3. 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 4. Respiratory failure due to COVID-19 pneumonia. On the Vent on 100% fio2 and PEEP 12 Completed hydroxychloroquine. EKG QT 440 . 5. Sepsis on Solu-Medrol and Meropenem per ID 6. History of CVA. 7. Multi-infarct dementia. 8. History of seizures. 9. Abdominal distension 10. S/P PEG 11. Full Code DW RN Subjective Subjective Intubated in ICU on 100% Fio2 and PEEP 12. Covid is positive. In SR off pressors but on fentanyl drip Had atrial fib with RVR 120s again despite Lopressor 100 bid . Objective Last 24 Hour Vital Signs Date Time Temp Pulse Resp B/P (MAP) Pulse Ox O2 Delivery O2 Flow Rate FiO2 09/07/19 15:30 86 24 122/68 (86) 99 09/07/19 15:12 86 26 100 09/07/19 15:00 86 13 109/62 (78) 99 09/07/19 14:30 89 7 109/64 (79) 100 09/07/19 14:00 91 15 135/73 (93) 100 09/07/19 13:30 91 21 143/77 (99) 100 09/07/19 13:00 92 17 160/79 (106) 98 09/07/19 12:30 88 33 141/70 (93) 100 09/07/19 12:00 Mechanical Ventilator 09/07/19 12:00 87 09/07/19 12:00 100 09/07/19 12:00 100.5 88 34 140/73 (95) 100 09/07/19 11:15 87 34 100 09/07/19 11:00 Mechanical Ventilator 09/07/19 11:00 91 34 133/74 (93) 100 09/07/19 10:30 94 35 137/66 (89) 100 09/07/19 10:00 Mechanical Ventilator 09/07/19 10:00 95 36 131/73 (92) 100 09/07/19 09:30 95 35 123/56 (78) 100 09/07/19 09:00 Mechanical Ventilator 09/07/19 09:00 94 32 139/54 (82) 99 09/07/19 08:41 94 108/94 09/07/19 08:30 92 32 108/79 (89) 100 09/07/19 08:02 Mechanical Ventilator 09/07/19 08:00 100.5 92 29 122/59 (80) 100 09/07/19 08:00 Mechanical Ventilator 09/07/19 08:00 91 09/07/19 08:00 100 09/07/19 07:05 94 28 100 09/07/19 07:00 92 27 115/53 (73) 99 09/07/19 06:30 95 27 117/55 (75) 100 09/07/19 06:30 94 29 09/07/19 06:00 97 29 119/53 (75) 100 09/07/19 05:30 94 29 116/60 (78) 100 09/07/19 05:00 94 24 122/64 (83) 100 09/07/19 04:30 95 30 115/71 (86) 100 09/07/19 04:00 100 09/07/19 04:00 Mechanical Ventilator 09/07/19 04:00 100 09/07/19 04:00 98.7 96 31 114/64 (81) 100 09/07/19 03:30 97 30 121/61 (81) 100 09/07/19 03:00 100 29 114/57 (76) 98 09/07/19 02:41 101 29 100 09/07/19 02:30 101 29 119/71 (87) 98 09/07/19 02:00 101 29 123/68 (86) 98 09/07/19 01:30 102 29 126/68 (87) 98 09/07/19 01:02 101 32 100 Mechanical Ventilator 100 103 32 100 09/07/19 01:00 102 29 127/67 (87) 99 09/07/19 00:30 101 30 133/71 (91) 98 09/07/19 00:00 100 09/07/19 00:00 95 09/07/19 00:00 Mechanical Ventilator 09/07/19 00:00 28 Endotracheal Tube 100 09/07/19 00:00 99.2 101 30 133/71 (91) 97 09/06/19 23:30 99 30 131/68 (89) 94 09/06/19 23:00 95 29 135/68 (90) 95 09/06/19 23:00 28 Endotracheal Tube 100 09/06/19 22:49 93 31 100 09/06/19 22:30 94 31 138/73 (94) 93 09/06/19 22:00 91 30 142/68 (92) 96 09/06/19 22:00 29 Endotracheal Tube 100 09/06/19 21:37 99.0 09/06/19 21:30 94 30 133/67 (89) 100 09/06/19 21:11 99 130/74 09/06/19 21:07 27 Endotracheal Tube 100 09/06/19 21:07 27 Mechanical Ventilator 100 09/06/19 21:00 96 37 131/61 (84) 100 09/06/19 20:30 97 27 130/74 (92) 99 09/06/19 20:00 100 09/06/19 20:00 Mechanical Ventilator 09/06/19 20:00 95 09/06/19 20:00 98.8 96 26 130/63 (85) 100 09/06/19 20:00 28 Endotracheal Tube 100 09/06/19 19:30 96 27 126/57 (80) 100 09/06/19 19:11 88 29 100 Mechanical Ventilator 100 90 22 100 09/06/19 19:00 92 30 130/67 (88) 100 09/06/19 19:00 22 Endotracheal Tube 100 09/06/19 18:30 97 25 129/66 (87) 99 09/06/19 18:00 99.0 95 25 125/70 (88) 99 09/06/19 17:30 93 24 127/66 (86) 100 09/06/19 17:00 92 23 122/67 (85) 99 09/06/19 16:49 90 23 100 09/06/19 16:30 92 24 121/56 (77) 100 09/06/19 16:00 92 23 123/63 (83) 99 09/06/19 16:00 Mechanical Ventilator 09/06/19 16:00 100 09/06/19 16:00 96 Intake and Output 09/06/19 09/07/19 19:00 07:00 Intake Total 1740 ml 1214 ml Output Total 425 ml 400 ml Balance 1315 ml 814 ml Free Water 150 ml IV Total 1080 ml 464 ml Tube Feeding 600 ml 600 ml Other 60 ml Output Urine Total 425 ml 400 ml # Bowel Movements 1 Laboratory Tests Test 09/07/19 04:30 White Blood Count 13.7 K/UL (4.8-10.8) H Red Blood Count 3.32 M/UL (4.70-6.10) L Hemoglobin 10.3 G/DL (14.2-18.0) L Hematocrit 30.8 % (42.0-52.0) L Mean Corpuscular Volume 93 FL (80-99) Mean Corpuscular Hemoglobin 30.9 PG (27.0-31.0) Mean Corpuscular Hemoglobin Concent 33.4 G/DL (32.0-36.0) Red Cell Distribution Width 13.4 % (11.6-14.8) Platelet Count 108 K/UL (150-450) L Mean Platelet Volume 8.4 FL (6.5-10.1) Neutrophils (%) (Auto) % (45.0-75.0) Lymphocytes (%) (Auto) % (20.0-45.0) Monocytes (%) (Auto) % (1.0-10.0) Eosinophils (%) (Auto) % (0.0-3.0) Basophils (%) (Auto) % (0.0-2.0) Differential Total Cells Counted 100 Neutrophils % (Manual) 82 % (45-75) H Lymphocytes % (Manual) 9 % (20-45) L Monocytes % (Manual) 3 % (1-10) Eosinophils % (Manual) 2 % (0-3) Basophils % (Manual) 0 % (0-2) Metamyelocytes % 3 % (0-0) H Myelocytes % 1 % (0-0) H Band Neutrophils 0 % (0-8) Nucleated Red Blood Cells 2 /100 WBC Platelet Estimate Decreased L Platelet Morphology Normal Hypochromasia 1+ Sodium Level 136 MMOL/L (136-145) Potassium Level 5.7 MMOL/L (3.5-5.1) H Chloride Level 99 MMOL/L (98-107) Carbon Dioxide Level 35 MMOL/L (21-32) H Anion Gap 2 mmol/L (5-15) L Blood Urea Nitrogen 30 mg/dL (7-18) H Creatinine 0.7 MG/DL (0.55-1.30) Estimat Glomerular Filtration Rate > 60 mL/min (>60) Glucose Level 140 MG/DL (74-106) H Calcium Level 7.8 MG/DL (8.5-10.1) L Total Bilirubin 0.3 MG/DL (0.2-1.0) Aspartate Amino Transf (AST/SGOT) 118 U/L (15-37) H Alanine Aminotransferase (ALT/SGPT) 52 U/L (12-78) Alkaline Phosphatase 251 U/L (46-116) H Total Protein 5.9 G/DL (6.4-8.2) L Albumin 1.2 G/DL (3.4-5.0) L Globulin 4.7 g/dL Albumin/Globulin Ratio 0.3 (1.0-2.7) L Microbiology Date/Time Source Procedure Growth Status 09/04/19 23:45 Sputum Gram Stain - Final Complete 09/04/19 23:45 Sputum Culture - Final Staphylococcus Aureus - Mrsa Complete Objective HEAD AND NECK: No JVD. Orally intubated. LUNGS: Coarse rhonchi. CARDIOVASCULAR: Irregular S1 and S2 with no gallop or murmur. ABDOMEN: Soft.PEG intact EXTREMITIES: 1 plus pitting edema. Paul Robles MD Sep 07, 2019 15:56
--- NOTE | 2019-09-07 17:11 | General Progress Note ---
Assessment/Plan Assessment/Plan: 83YO M with HTN, HLD, COPD, CAD, Seizure disorder presenting with cough and shortness of breath. In the ED, patient was found to be tachycardic (130's) and tachypnic (33) and febrile at 101.2. #Hypoxemic acute respiratory failure 2/2 COVID #Septic shock #Covid19 positive #transaminitis - likely 2/2 to above, downtrending/stable #Fevers #MRSA pneumonia #Drug reaction/Red Man syndrome - resolved -Appreciate ICU care -Continue vent management per the ICU team, daily SBT -Cont. contact plus droplet isolation. -Continuous court recording monitor. -s/p Plaquenil -08/26 BCx NGTD -08/26 SCx - MRSA -08/29 UCx NGTD 09/03 SCx +staph aureus -Steroids per Pulm -ID following: linezolid, meropenem #Hyperkalemia #Hypokalemia - resolved -ctm, replace PRN -s/p Kayexalate -no labs yet today -repeat BMP in AM #Abdominal distension - improved, Ileus -KUB reviewed -d/w general sx, likely ileus #History of Seizure disorder: -cont Dilantin and Keppra -Neurology following #Paroxysmal Atrial flutter with rapid ventricular response #Accelerated HTN - resolved #HLD #CAD #Eliquis use #elevated troponins likely 2/2 demand ischemia, down trending -MTP increased to 100 BID, hydralazine PRN -Eliquis 2.5 -Cardio following, recs appreciated #Sacral Decubitus Ulcer -general sx/wound care following -recs appreciated prognosis guarded I spent 70 minutes on this patient's case, and 38 mins was dedicated to critical care. Subjective Date patient seen: Sep 07, 2019 Allergies: Coded Allergies: No Known Allergies (Unverified , 02/29/16) Subjective remains intubated Objective Last 24 Hour Vital Signs Date Time Temp Pulse Resp B/P (MAP) Pulse Ox O2 Delivery O2 Flow Rate FiO2 09/07/19 15:30 86 24 122/68 (86) 99 09/07/19 15:12 86 26 100 09/07/19 15:00 86 13 109/62 (78) 99 09/07/19 14:30 89 7 109/64 (79) 100 09/07/19 14:00 91 15 135/73 (93) 100 09/07/19 13:30 91 21 143/77 (99) 100 09/07/19 13:00 92 17 160/79 (106) 98 09/07/19 12:30 88 33 141/70 (93) 100 09/07/19 12:00 Mechanical Ventilator 09/07/19 12:00 87 09/07/19 12:00 100 09/07/19 12:00 100.5 88 34 140/73 (95) 100 09/07/19 11:15 87 34 100 09/07/19 11:00 Mechanical Ventilator 09/07/19 11:00 91 34 133/74 (93) 100 09/07/19 10:30 94 35 137/66 (89) 100 09/07/19 10:00 Mechanical Ventilator 09/07/19 10:00 95 36 131/73 (92) 100 09/07/19 09:30 95 35 123/56 (78) 100 09/07/19 09:00 Mechanical Ventilator 09/07/19 09:00 94 32 139/54 (82) 99 09/07/19 08:41 94 108/94 09/07/19 08:30 92 32 108/79 (89) 100 09/07/19 08:02 Mechanical Ventilator 09/07/19 08:00 100.5 92 29 122/59 (80) 100 09/07/19 08:00 Mechanical Ventilator 09/07/19 08:00 91 09/07/19 08:00 100 09/07/19 07:05 94 28 100 09/07/19 07:00 92 27 115/53 (73) 99 09/07/19 06:30 95 27 117/55 (75) 100 09/07/19 06:30 94 29 09/07/19 06:00 97 29 119/53 (75) 100 09/07/19 05:30 94 29 116/60 (78) 100 09/07/19 05:00 94 24 122/64 (83) 100 09/07/19 04:30 95 30 115/71 (86) 100 09/07/19 04:00 100 09/07/19 04:00 Mechanical Ventilator 09/07/19 04:00 100 09/07/19 04:00 98.7 96 31 114/64 (81) 100 09/07/19 03:30 97 30 121/61 (81) 100 09/07/19 03:00 100 29 114/57 (76) 98 09/07/19 02:41 101 29 100 09/07/19 02:30 101 29 119/71 (87) 98 09/07/19 02:00 101 29 123/68 (86) 98 09/07/19 01:30 102 29 126/68 (87) 98 09/07/19 01:02 101 32 100 Mechanical Ventilator 100 103 32 100 09/07/19 01:00 102 29 127/67 (87) 99 09/07/19 00:30 101 30 133/71 (91) 98 09/07/19 00:00 100 09/07/19 00:00 95 09/07/19 00:00 Mechanical Ventilator 09/07/19 00:00 28 Endotracheal Tube 100 09/07/19 00:00 99.2 101 30 133/71 (91) 97 09/06/19 23:30 99 30 131/68 (89) 94 09/06/19 23:00 95 29 135/68 (90) 95 09/06/19 23:00 28 Endotracheal Tube 100 09/06/19 22:49 93 31 100 09/06/19 22:30 94 31 138/73 (94) 93 09/06/19 22:00 91 30 142/68 (92) 96 09/06/19 22:00 29 Endotracheal Tube 100 09/06/19 21:37 99.0 09/06/19 21:30 94 30 133/67 (89) 100 09/06/19 21:11 99 130/74 09/06/19 21:07 27 Endotracheal Tube 100 09/06/19 21:07 27 Mechanical Ventilator 100 09/06/19 21:00 96 37 131/61 (84) 100 09/06/19 20:30 97 27 130/74 (92) 99 09/06/19 20:00 100 09/06/19 20:00 Mechanical Ventilator 09/06/19 20:00 95 09/06/19 20:00 98.8 96 26 130/63 (85) 100 09/06/19 20:00 28 Endotracheal Tube 100 09/06/19 19:30 96 27 126/57 (80) 100 09/06/19 19:11 88 29 100 Mechanical Ventilator 100 90 22 100 09/06/19 19:00 92 30 130/67 (88) 100 09/06/19 19:00 22 Endotracheal Tube 100 09/06/19 18:30 97 25 129/66 (87) 99 09/06/19 18:00 99.0 95 25 125/70 (88) 99 09/06/19 17:30 93 24 127/66 (86) 100 Intake and Output 09/06/19 09/07/19 19:00 07:00 Intake Total 1740 ml 1214 ml Output Total 425 ml 400 ml Balance 1315 ml 814 ml Free Water 150 ml IV Total 1080 ml 464 ml Tube Feeding 600 ml 600 ml Other 60 ml Output Urine Total 425 ml 400 ml # Bowel Movements 1 Laboratory Tests 09/07/19 04:30: White Blood Count 13.7H, Red Blood Count 3.32L, Hemoglobin 10.3L, Hematocrit 30.8L, Mean Corpuscular Volume 93, Mean Corpuscular Hemoglobin 30.9, Mean Corpuscular Hemoglobin Concent 33.4, Red Cell Distribution Width 13.4, Platelet Count 108L, Mean Platelet Volume 8.4, Neutrophils (%) (Auto) , Lymphocytes (%) ( Auto) , Monocytes (%) (Auto) , Eosinophils (%) (Auto) , Basophils (%) (Auto) , Differential Total Cells Counted 100, Neutrophils % (Manual) 82H, Lymphocytes % (Manual) 9L, Monocytes % (Manual) 3, Eosinophils % (Manual) 2, Basophils % ( Manual) 0, Metamyelocytes % 3H, Myelocytes % 1H, Band Neutrophils 0, Nucleated Red Blood Cells 2, Platelet Estimate DecreasedL, Platelet Morphology Normal, Hypochromasia 1+, Sodium Level 136, Potassium Level 5.7H, Chloride Level 99, Carbon Dioxide Level 35H, Anion Gap 2L, Blood Urea Nitrogen 30H, Creatinine 0.7 , Estimat Glomerular Filtration Rate > 60, Glucose Level 140H, Calcium Level 7.8L, Total Bilirubin 0.3, Aspartate Amino Transf (AST/SGOT) 118H, Alanine Aminotransferase (ALT/SGPT) 52, Alkaline Phosphatase 251H, Total Protein 5.9L, Albumin 1.2L, Globulin 4.7, Albumin/Globulin Ratio 0.3L Height (Feet): 5 Height (Inches): 8.00 Weight (Pounds): 166 Von Grullon MD Sep 07, 2019 17:11
--- NOTE | 2019-09-07 18:55 | NUR ---
HAND-OFF: Report given to hoda PAULSON. pt in no acute distress
--- NOTE | 2019-09-07 19:40 | NUR ---
Nurse Note: Received report from LORENE Schroeder for continuity of care. Pt sedated, resting, no signs of discomfort. Pupils round, equal and accommodates to light. Pt intubated; ETT 7.5 at 25cm at lip, vented at AC 20, VT 450, FiO2 100% and Peep 12. O2 at 100%. Afib of monitor; per AM shift, is aware. Pt is on cooling measures d/t elevated temp. RT IJ triple lumen central line infusing Fentanyl drip at 60 mcg/min. GTube noted with Glucerna 1.5 at 50ml/hr infusing with no residual. Swartz catheter is patent with urine output noted. Skin has sacral DTI and left heel unstagable wound, both covered with Optifoam dressings, dry/intact. Pt edematous. On P200 mattress. Head of bed 30 degrees. All safety measures met; will continue to monitor.
--- NOTE | 2019-09-07 19:49 | Surgery Progress Note ---
Surgery Progress Note Subjective Additional Comments low grade fevers leukocytosis ill appearing worse imaging reviewed Objective Last 24 Hour Vital Signs Date Time Temp Pulse Resp B/P (MAP) Pulse Ox O2 Delivery O2 Flow Rate FiO2 09/07/19 19:01 80 24 100 Mechanical Ventilator 100 82 26 100 09/07/19 18:30 82 27 108/52 (70) 100 09/07/19 18:00 Mechanical Ventilator 09/07/19 18:00 99.9 85 28 105/51 (69) 100 09/07/19 17:00 88 24 111/61 (78) 100 09/07/19 17:00 Mechanical Ventilator 09/07/19 16:30 88 24 113/56 (75) 100 09/07/19 16:00 85 24 108/55 (72) 100 09/07/19 16:00 Mechanical Ventilator 09/07/19 16:00 84 09/07/19 16:00 100 09/07/19 16:00 Mechanical Ventilator 09/07/19 15:30 86 24 122/68 (86) 99 09/07/19 15:12 86 26 100 09/07/19 15:00 86 13 109/62 (78) 99 09/07/19 15:00 Mechanical Ventilator 09/07/19 14:30 89 7 109/64 (79) 100 09/07/19 14:00 Mechanical Ventilator 09/07/19 14:00 91 15 135/73 (93) 100 09/07/19 13:30 91 21 143/77 (99) 100 09/07/19 13:00 92 17 160/79 (106) 98 09/07/19 13:00 Mechanical Ventilator 09/07/19 12:30 88 33 141/70 (93) 100 09/07/19 12:00 Mechanical Ventilator 09/07/19 12:00 87 09/07/19 12:00 Mechanical Ventilator 09/07/19 12:00 100 09/07/19 12:00 100.5 88 34 140/73 (95) 100 09/07/19 11:15 87 34 100 09/07/19 11:00 Mechanical Ventilator 09/07/19 11:00 91 34 133/74 (93) 100 09/07/19 10:30 94 35 137/66 (89) 100 09/07/19 10:00 Mechanical Ventilator 09/07/19 10:00 95 36 131/73 (92) 100 09/07/19 09:30 95 35 123/56 (78) 100 09/07/19 09:00 Mechanical Ventilator 09/07/19 09:00 94 32 139/54 (82) 99 09/07/19 08:41 94 108/94 09/07/19 08:30 92 32 108/79 (89) 100 09/07/19 08:02 Mechanical Ventilator 09/07/19 08:00 100.5 92 29 122/59 (80) 100 09/07/19 08:00 Mechanical Ventilator 09/07/19 08:00 91 09/07/19 08:00 100 09/07/19 07:05 94 28 100 09/07/19 07:00 92 27 115/53 (73) 99 09/07/19 06:30 95 27 117/55 (75) 100 09/07/19 06:30 94 29 09/07/19 06:00 97 29 119/53 (75) 100 09/07/19 05:30 94 29 116/60 (78) 100 09/07/19 05:00 94 24 122/64 (83) 100 09/07/19 04:30 95 30 115/71 (86) 100 09/07/19 04:00 100 09/07/19 04:00 Mechanical Ventilator 09/07/19 04:00 100 09/07/19 04:00 98.7 96 31 114/64 (81) 100 09/07/19 03:30 97 30 121/61 (81) 100 09/07/19 03:00 100 29 114/57 (76) 98 09/07/19 02:41 101 29 100 09/07/19 02:30 101 29 119/71 (87) 98 09/07/19 02:00 101 29 123/68 (86) 98 09/07/19 01:30 102 29 126/68 (87) 98 09/07/19 01:02 101 32 100 Mechanical Ventilator 100 103 32 100 09/07/19 01:00 102 29 127/67 (87) 99 09/07/19 00:30 101 30 133/71 (91) 98 09/07/19 00:00 100 09/07/19 00:00 95 09/07/19 00:00 Mechanical Ventilator 09/07/19 00:00 28 Endotracheal Tube 100 09/07/19 00:00 99.2 101 30 133/71 (91) 97 09/06/19 23:30 99 30 131/68 (89) 94 09/06/19 23:00 95 29 135/68 (90) 95 09/06/19 23:00 28 Endotracheal Tube 100 09/06/19 22:49 93 31 100 09/06/19 22:30 94 31 138/73 (94) 93 09/06/19 22:00 91 30 142/68 (92) 96 09/06/19 22:00 29 Endotracheal Tube 100 09/06/19 21:37 99.0 09/06/19 21:30 94 30 133/67 (89) 100 09/06/19 21:11 99 130/74 09/06/19 21:07 27 Endotracheal Tube 100 09/06/19 21:07 27 Mechanical Ventilator 100 09/06/19 21:00 96 37 131/61 (84) 100 09/06/19 20:30 97 27 130/74 (92) 99 09/06/19 20:00 100 09/06/19 20:00 Mechanical Ventilator 09/06/19 20:00 95 09/06/19 20:00 98.8 96 26 130/63 (85) 100 09/06/19 20:00 28 Endotracheal Tube 100 I&O Intake and Output 09/06/19 09/07/19 19:00 07:00 Intake Total 1740 ml 1214 ml Output Total 425 ml 400 ml Balance 1315 ml 814 ml Free Water 150 ml IV Total 1080 ml 464 ml Tube Feeding 600 ml 600 ml Other 60 ml Output Urine Total 425 ml 400 ml # Bowel Movements 1 Dressing: other Wound: other Drains: other Cardiovascular: RSR Respiratory: decreased breath sounds Abdomen: soft, decreased bowel sounds Extremities: no cyanosis Laboratory Tests Test 09/07/19 04:30 White Blood Count 13.7 K/UL (4.8-10.8) H Red Blood Count 3.32 M/UL (4.70-6.10) L Hemoglobin 10.3 G/DL (14.2-18.0) L Hematocrit 30.8 % (42.0-52.0) L Mean Corpuscular Volume 93 FL (80-99) Mean Corpuscular Hemoglobin 30.9 PG (27.0-31.0) Mean Corpuscular Hemoglobin Concent 33.4 G/DL (32.0-36.0) Red Cell Distribution Width 13.4 % (11.6-14.8) Platelet Count 108 K/UL (150-450) L Mean Platelet Volume 8.4 FL (6.5-10.1) Neutrophils (%) (Auto) % (45.0-75.0) Lymphocytes (%) (Auto) % (20.0-45.0) Monocytes (%) (Auto) % (1.0-10.0) Eosinophils (%) (Auto) % (0.0-3.0) Basophils (%) (Auto) % (0.0-2.0) Differential Total Cells Counted 100 Neutrophils % (Manual) 82 % (45-75) H Lymphocytes % (Manual) 9 % (20-45) L Monocytes % (Manual) 3 % (1-10) Eosinophils % (Manual) 2 % (0-3) Basophils % (Manual) 0 % (0-2) Metamyelocytes % 3 % (0-0) H Myelocytes % 1 % (0-0) H Band Neutrophils 0 % (0-8) Nucleated Red Blood Cells 2 /100 WBC Platelet Estimate Decreased L Platelet Morphology Normal Hypochromasia 1+ Sodium Level 136 MMOL/L (136-145) Potassium Level 5.7 MMOL/L (3.5-5.1) H Chloride Level 99 MMOL/L (98-107) Carbon Dioxide Level 35 MMOL/L (21-32) H Anion Gap 2 mmol/L (5-15) L Blood Urea Nitrogen 30 mg/dL (7-18) H Creatinine 0.7 MG/DL (0.55-1.30) Estimat Glomerular Filtration Rate > 60 mL/min (>60) Glucose Level 140 MG/DL (74-106) H Calcium Level 7.8 MG/DL (8.5-10.1) L Total Bilirubin 0.3 MG/DL (0.2-1.0) Aspartate Amino Transf (AST/SGOT) 118 U/L (15-37) H Alanine Aminotransferase (ALT/SGPT) 52 U/L (12-78) Alkaline Phosphatase 251 U/L (46-116) H Total Protein 5.9 G/DL (6.4-8.2) L Albumin 1.2 G/DL (3.4-5.0) L Globulin 4.7 g/dL Albumin/Globulin Ratio 0.3 (1.0-2.7) L Plan Problems: (1) Decubitus skin ulcer Assessment & Plan: Patient presented on admission with Sacral DTPI. Base of wound is purple with maroon borders. Unstageable pressure injury Plantar L heel . Base of wound is necrotic with marginal erythema along borders. Non-blanching erythema R heel. Sacral DTPI now evolving since admission. Several opening within base of wound. No exudate noted. Open areas are moist and jason. Surrounding base of wound is purple with erythema along borders. Unstageable Pressure injury Plantar L heel. Base of wound is necrotic. Edges adherent to base of wound. Tx.Plan: Cleanse Sacral wound with Saline. Apply Therahoney. Apply Moisture Barrier Paste periwound. Cover with Optifoam drsg. Change every 3 days and prn. Apply Betadine to Plantar L heel. Cover with Optifoam drsg. Change every 3 days and prn. Apply Cavilon Skin Barrier R heel. Cover with Optifoam drsg. Change every 7 days and prn. Reposition at least every 2hours or as tolerated Off-load heels with pillow. Nutritional optimization will follow with recs air mattress once off isolation DAILY ESTIMATED NEEDS: Needs based on Critical care, Wounds/ 53kg abw 22-28 kcals/kg 7008-8292 total kcals 1.25-2 g protein/kg 66-106 g total protein 25-30 mL/kg 4041-7730 total fluid mLs NUTRITION DIAGNOSIS: * Swallowing difficulty R/T dysphagia as evidenced by PEG dep, s/p intubation, on GT feeding. * Increased kcal/prot needs R/T wound healing as evidenced by pt admitted w/ evolving DTPI sacral wound and unstageable lt heel wound. CURRENT TF:Glucerna 1.2 @50ml/hr x22 hrs ENTERAL NUTRITION RECOMMENDATIONS: Glucerna 1.2 @ 50ml/hr x 22 hrs (hold 1 hr before and after Dilantin QD) to provide 1100ml, 1320kcal, 66g prot, 886ml free water * Maintain Glucerna 1.2 for carb control, BGs elevated. * Hold 1 hr before and after Dilantin med * HOB over 30 degrees/ without IVF, H20 flush of 150ml q 6 hrs FOR 24 HRS TF RUN WITHOUT DILANTIN (Dilantin currently held) : okay to keep the same TF rate of Glucerna 1.2 @ 50ml/hr x 24 hrs to provide 1200ml, 1440kcal, 72g prot 966ml free water -> will still meet 100% est kcal/prot needs ADDITIONAL RECOMMENDATIONS: * Per SNF record, ht is 60", wt is 149lbs (08/14/19) Rec calibrated bedscale wt * Rec NISS w/ TF: BGs elevated, now on Solumedrol * Wound healing: add Vit C 500mg QD + Giancarlo 1pkt BID via PEG * Monitor lytes, replete as needed . (2) Multi-infarct dementia (3) Uncontrolled seizures (4) History of CVA (cerebrovascular accident) (5) Acute encephalopathy (6) Aspiration pneumonia Assessment & Plan: Interval worsening of aeration with increasing interstitial and patchy bilateral airspace disease. Findings may be on the basis of worsening CHF/pulmonary edema although multifocal pneumonia must also be considered. Endotracheal tube injection is a central line remain in place. 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 worsening vent worse prognosis guarded (7) Respiratory failure (8) Suspected 2019 novel coronavirus infection Assessment & Plan: testing ? (9) Abdominal distension Assessment & Plan: noted +BM unlikely obstruction will monitor repeat KUB tomorrow AM Sundeep Benavidez Sep 07, 2019 19:49
[2019-09-07] MEDS: Dyna-Hex 2% Top Sol 2oz TOPIC SCH (20:39)
[2019-09-07] MEDS: Tamsulosin 0.4mg cap ORAL SCH (20:40)
--- NOTE | 2019-09-07 20:57 | Neurology Progress Note ---
Interim History Interim History ROS Limited/Unobtainable: Yes Interim History intubated sedated Objective Physical Exam Last Vital Signs Date Time Temp Pulse Resp B/P (MAP) Pulse Ox O2 Delivery O2 Flow Rate FiO2 09/07/19 20:40 75 107/54 09/07/19 20:35 25 100 09/07/19 19:01 100 Mechanical Ventilator 09/07/19 18:00 99.9 09/04/19 16:14 21.0 Laboratory Tests Test 09/07/19 04:30 White Blood Count 13.7 K/UL (4.8-10.8) H Red Blood Count 3.32 M/UL (4.70-6.10) L Hemoglobin 10.3 G/DL (14.2-18.0) L Hematocrit 30.8 % (42.0-52.0) L Mean Corpuscular Volume 93 FL (80-99) Mean Corpuscular Hemoglobin 30.9 PG (27.0-31.0) Mean Corpuscular Hemoglobin Concent 33.4 G/DL (32.0-36.0) Red Cell Distribution Width 13.4 % (11.6-14.8) Platelet Count 108 K/UL (150-450) L Mean Platelet Volume 8.4 FL (6.5-10.1) Neutrophils (%) (Auto) % (45.0-75.0) Lymphocytes (%) (Auto) % (20.0-45.0) Monocytes (%) (Auto) % (1.0-10.0) Eosinophils (%) (Auto) % (0.0-3.0) Basophils (%) (Auto) % (0.0-2.0) Differential Total Cells Counted 100 Neutrophils % (Manual) 82 % (45-75) H Lymphocytes % (Manual) 9 % (20-45) L Monocytes % (Manual) 3 % (1-10) Eosinophils % (Manual) 2 % (0-3) Basophils % (Manual) 0 % (0-2) Metamyelocytes % 3 % (0-0) H Myelocytes % 1 % (0-0) H Band Neutrophils 0 % (0-8) Nucleated Red Blood Cells 2 /100 WBC Platelet Estimate Decreased L Platelet Morphology Normal Hypochromasia 1+ Sodium Level 136 MMOL/L (136-145) Potassium Level 5.7 MMOL/L (3.5-5.1) H Chloride Level 99 MMOL/L (98-107) Carbon Dioxide Level 35 MMOL/L (21-32) H Anion Gap 2 mmol/L (5-15) L Blood Urea Nitrogen 30 mg/dL (7-18) H Creatinine 0.7 MG/DL (0.55-1.30) Estimat Glomerular Filtration Rate > 60 mL/min (>60) Glucose Level 140 MG/DL (74-106) H Calcium Level 7.8 MG/DL (8.5-10.1) L Total Bilirubin 0.3 MG/DL (0.2-1.0) Aspartate Amino Transf (AST/SGOT) 118 U/L (15-37) H Alanine Aminotransferase (ALT/SGPT) 52 U/L (12-78) Alkaline Phosphatase 251 U/L (46-116) H Total Protein 5.9 G/DL (6.4-8.2) L Albumin 1.2 G/DL (3.4-5.0) L Globulin 4.7 g/dL Albumin/Globulin Ratio 0.3 (1.0-2.7) L Neurologic Exam Objective intubated, sedated, minimal withdraw cc 35 min Impression/Recommendations Problems: (1) Suspected 2019 novel coronavirus infection (2) Multi-infarct dementia (3) Uncontrolled seizures (4) History of CVA (cerebrovascular accident) (5) Acute encephalopathy (6) Aspiration pneumonia (7) Respiratory failure Diagnostic Impression icu level of care cont tre and macario Monitor for seizures covid ro started atb wean off sedation when able Ivan Rose MD Sep 07, 2019 20:57
--- NOTE | 2019-09-07 23:30 | NUR ---
Nurse Note: Pt sedated, nonverbal. Pt suctioned as needed. Pulse ox changed, 100% O2 on monitor. Pt seen by RT, no signs of resp distress and no changes to vent settings. Pt turned as needed. No BM. Pt edematous; pitting edema noted on bilateral extremities. All safety measures met; will continue to monitor.
[2019-09-08] VITALS (25 sets, daily range): BP systolic 105–166; BP diastolic 54–84
[2019-09-08] MEDS: Ipratropium Bromide Inhaler INH SCH ×3 (01:00→20:19)
[2019-09-08] MEDS: Albuterol 90mcg Inhaler 8gm INH SCH ×3 (01:00→20:19)
--- NOTE | 2019-09-08 02:00 | NUR ---
Nurse Note: Pt remains at condition at baseline. Pt resting; afebrile, cooling blanket in place. Pt has gasping like breathing; O2 at 100%. No changes to vent. Titrated Fentanyl; tolerating well. G-tube patent and infusing Glucerna at 50cc. No residual noted. Swartz cath patent; urine output noted. Head of bed greater than 30 degrees. [address] precautions in place. All safety measures met; will continue to monitor.
--- NOTE | 2019-09-08 04:30 | NUR ---
Nurse Note: Camera not working; unable to take and upload pictures. Pt turned, cleaned, no kept head of bed greater than 30 degrees. All safety measures met; will continue to monitor.
[2019-09-08 06:12] LABS: HEMATOCRIT 34.8 % (42.0-52.0); HEMOGLOBIN 12.4 G/DL (14.2-18.0); MEAN CORPUSCULAR VOLUME 88 FL (80-99); PLATELET COUNT 268 K/UL (150-450); RED BLOOD COUNT 3.94 M/UL (4.70-6.10); RED CELL DISTRIBUTION WIDTH 10.7 % (11.6-14.8); WHITE BLOOD COUNT 15.1 K/UL (4.8-10.8)
[2019-09-08] MEDS: Meropenem 1 GM in NS 55 ML IVPB SCH ×2 (06:17→13:30)
[2019-09-08 06:44] LABS: ALANINE AMINOTRANSFERASE 63 U/L (12-78); ALBUMIN 2.3 G/DL (3.4-5.0); ALBUMIN/GLOBULIN RATIO 0.5 (1.0-2.7); ALKALINE PHOSPHATASE 99 U/L (46-116); ANION GAP 14 mmol/L (5-15); ASPARTATE AMINO TRANSFERASE 83 U/L (15-37); BILIRUBIN,TOTAL 0.5 MG/DL (0.2-1.0); BLOOD UREA NITROGEN 35 mg/dL (7-18); CALCIUM 8.3 MG/DL (8.5-10.1); CARBON DIOXIDE 21 MMOL/L (21-32); CHLORIDE 108 MMOL/L (98-107); CREATININE 0.9 MG/DL (0.55-1.30); FERRITIN 714 NG/ML (8-388); SODIUM 143 MMOL/L (136-145)
--- NOTE | 2019-09-08 06:50 | NUR ---
Nurse Note: Pt sedated, resting, no signs of discomfort. Pupils round, equal and accommodates to light but sluggish. Pt intubated; ETT 7.5 at 25cm at lip, vented at AC 20, VT 450, FiO2 100% and Peep 12. O2 at 100%. Pt has gasping like respirations. Pt is on cooling measures. RT IJ triple lumen central line infusing Fentanyl drip at 170 mcg/min. Aurora lumen clotted with hemolyzed blood; will endorse. GTube noted with Glucernia 1.2 at 50ml/hr with no residual. Swartz catheter is patent with urine output noted. Skin has sacral DTI and left heel unstagable wound, both covered with optifoam dressings, dry/intact. Pt edematous. On P200 mattress. Head of bed [address] Silverman at pt side and aware of lab results; per verbal orders, pt to on 20 KCl IVP one time dose. All safety measures met; will continue to monitor.
--- NOTE | 2019-09-08 07:11 | NUR ---
Nurse Note: Report given to LORENE Hernandez for continuity of care.
--- NOTE | 2019-09-08 07:23 | NUR ---
NURSE NOTES: Received report from Jessica Stone RN. Observed patient in bed, orally intubated with vent settings AC 20, TV 450, FiO2 100%, and PEEP 12. Patient is saturating 100% at this time. Right IJ noted. Patient has GT, TF Glucerna infusing at 50ml/hr. HOB elevated to avoid aspiration. No s/s of pain/distress at this time. Bed locked, alarmed, and in lowest position, padded side rails up x2. Patient remains on airborne precautions. Will continue assessment and will continue plan of care.
[2019-09-08] MEDS ORDERED: Sodium Chloride for KCL Premix X 1hr IV SCH (07:30)
--- NOTE | 2019-09-08 07:42 | Hematology/Onc Progress Note ---
Assessment/Plan Assessment/Plan Assessmenta and Recs # Elevated didmer in the setting of hypoxemic acute respiratory failure 2/2 COVID --> likely is elevated due to sepsis, inflammatory state, cytokine release storm --> recommend to get duplex, however, will wait until patient negative --> have dw US tech, can wait # Lymphopenia due to Septic shock from Covid19 positive --> likely is a poor prognositic indicator --> trend as needed --> is on abx as needed # Hypecoagulable disorder with afib paroxysmal --> ok for eliquis to continue --> as per cards # Transaminitis - likely 2/2 to above, downtrending/stable --> ast and alt is noted # Fevers with MRSA pneumonia. covid 19 --> remains on abx as needed --> as per id care # Hyperkalemia --> kayxelate prn # Hypokalemia - resolved # Abdominal distension - improved, Ileus --> KUB reviewed # History of Seizure disorder: --> cont Dilantin and Keppra # Sacral Decubitus Ulcer --> per surg # Dvt ppx eliquis po The timing of this note does not necessarily reflect the time of the patient was seen. Greatly appreciate consultation. Subjective Constitutional: Denies: no symptoms, chills, fever, malaise, weakness, other HEENT: Denies: no symptoms, eye pain, blurred vision, tearing, double vision, ear pain, ear discharge, nose pain, nose congestion, throat pain, throat swelling, mouth pain, mouth swelling, other Cardiovascular: Denies: no symptoms, chest pain, edema, irregular heart rate, lightheadedness, palpitations, syncope, other Respiratory: Denies: no symptoms, cough, shortness of breath, SOB with excertion, SOB at rest, sputum, wheezing, other Gastrointestinal/Abdominal: Denies: no symptoms, abdomen distended, abdominal pain, black stools, tarry stools, blood in stool, constipated, diarrhea, difficulty swallowing, nausea, poor appetite, poor fluid intake, rectal bleeding , vomiting, other Allergies: Coded Allergies: No Known Allergies (Unverified , 02/29/16) Subjective 09/07 no bleeding, labs noted, no bleeding, meds reviewed, no hemolysis is seen Objective Objective Current Medications Medications (Trade) Dose Ordered Sig/Vanessa Route PRN Reason Start Time Stop Time Status Last Admin Dose Admin Acetaminophen (Tylenol) 650 mg Q4H PRN RECTAL Temp >100.5 09/01/19 01:30 10/01/19 01:29 09/03/19 05:35 Albuterol Sulfate (Proventil MDI) 2 puff Q6HRT INH 08/22/19 13:00 11/20/19 12:59 09/07/19 19:06 Apixaban (Eliquis) 2.5 mg BID GT 08/26/19 18:00 11/18/19 17:59 09/07/19 18:22 Chlorhexidine Gluconate (Antonella-Hex 2%) 1 applic DAILY@2000 TOPIC 08/21/19 20:00 11/19/19 19:59 09/07/19 20:39 Fentanyl Citrate 2500 mcg/Sodium Chloride 250 ml @ 0 mls/hr Q24H IV 09/04/19 20:30 09/11/19 20:29 09/07/19 08:02 Hydralazine HCl (Apresoline) 10 mg Q2H PRN IV Systolic >180 08/26/19 15:45 11/24/19 15:44 Ipratropium Ponce (Atrovent Inh) 1 puffs Q6HRT INH 08/22/19 13:00 09/21/19 12:59 09/07/19 19:06 Levetiracetam (Keppra) 1,500 mg Q12HR GT 08/20/19 21:00 09/19/19 20:59 09/07/19 20:39 Linezolid 300 ml @ 300 mls/hr EVERY 12 HOURS IVPB 09/04/19 21:00 09/12/19 20:59 09/07/19 21:37 Meropenem 1 gm/ Sodium Chloride 55 ml @ 110 mls/hr Q8HR IVPB 09/04/19 22:00 09/10/19 21:59 09/08/19 06:17 Methylprednisolone Sodium Succinate (Solu-MEDROL) 20 mg EVERY 12 HOURS IVP 08/31/19 21:00 11/23/19 20:59 09/07/19 20:40 Metoprolol Tartrate (Lopressor) 100 mg EVERY 12 HOURS GT 09/02/19 21:00 12/01/19 20:59 09/07/19 20:40 Midazolam HCl (Versed 2mg/2ml vial) 1 mg Q2H PRN IVP agitation 08/26/19 12:45 11/24/19 12:44 08/30/19 13:30 Pantoprazole (Protonix) 40 mg DAILY IVP 09/03/19 09:00 10/03/19 08:59 09/07/19 08:38 Phenytoin (Dilantin) 250 mg DAILY GT 08/21/19 09:00 09/20/19 08:59 Future hold 09/07/19 08:39 Polymyxin B Sulfate 285451 units/Dextrose 500 ml @ 500 mls/hr EVERY 12 HOURS IVPB 09/04/19 22:00 09/11/19 21:59 09/07/19 21:37 Potassium Chloride 100 ml @ 50 mls/hr ONCE ONCE IVPB 09/08/19 07:15 09/08/19 09:14 Sodium Chloride 100 ml @ 100 mls/hr Q1H IV 09/08/19 07:30 09/08/19 08:29 Tamsulosin HCl (Flomax) 0.4 mg BEDTIME ORAL 08/20/19 21:00 09/19/19 20:59 09/07/19 20:40 Last 24 Hour Vital Signs Date Time Temp Pulse Resp B/P (MAP) Pulse Ox O2 Delivery O2 Flow Rate FiO2 09/08/19 07:00 76 25 166/70 (102) 91 09/08/19 06:30 94 29 09/08/19 06:00 78 26 164/78 (106) 09/08/19 06:00 26 Mechanical Ventilator 100 09/08/19 05:15 99 30 100 09/08/19 05:00 79 25 166/84 (111) 93 09/08/19 05:00 24 Mechanical Ventilator 100 09/08/19 04:45 28 Mechanical Ventilator 100 09/08/19 04:30 26 Mechanical Ventilator 100 09/08/19 04:15 24 Mechanical Ventilator 100 09/08/19 04:00 77 27 155/67 (96) 98 09/08/19 04:00 77 09/08/19 04:00 24 Mechanical Ventilator 100 09/08/19 04:00 100 09/08/19 04:00 Mechanical Ventilator 09/08/19 03:45 28 Mechanical Ventilator 100 09/08/19 03:15 27 Mechanical Ventilator 100 09/08/19 03:05 95 28 100 09/08/19 03:00 26 Mechanical Ventilator 100 09/08/19 03:00 97.9 80 30 148/79 (102) 97 09/08/19 02:50 28 Mechanical Ventilator 100 09/08/19 02:30 26 Mechanical Ventilator 100 09/08/19 02:00 81 31 148/59 (88) 99 09/08/19 02:00 26 Mechanical Ventilator 100 09/08/19 01:40 28 Mechanical Ventilator 56 09/08/19 01:20 30 Mechanical Ventilator 100 09/08/19 01:02 89 30 100 Mechanical Ventilator 100 88 29 100 09/08/19 01:00 82 31 154/60 (91) 96 09/08/19 01:00 30 Mechanical Ventilator 100 09/08/19 00:40 34 Mechanical Ventilator 100 09/08/19 00:20 32 Mechanical Ventilator 100 09/08/19 00:00 80 31 151/59 (89) 81 09/08/19 00:00 Mechanical Ventilator 09/07/19 23:29 74 29 100 09/07/19 23:00 24 Mechanical Ventilator 100 09/07/19 23:00 28 Mechanical Ventilator 100 09/07/19 23:00 65 26 105/56 (72) 99 09/07/19 22:00 68 25 118/60 (79) 100 09/07/19 22:00 26 Mechanical Ventilator 100 09/07/19 21:00 100 09/07/19 21:00 98.8 25 110/54 (72) 100 09/07/19 21:00 27 Mechanical Ventilator 100 09/07/19 20:40 75 107/54 09/07/19 20:35 84 25 100 09/07/19 20:00 77 09/07/19 20:00 Mechanical Ventilator 09/07/19 20:00 26 Mechanical Ventilator 100 09/07/19 20:00 77 26 109/56 (73) 100 09/07/19 19:01 80 24 100 Mechanical Ventilator 100 82 26 100 09/07/19 19:00 27 Mechanical Ventilator 100 09/07/19 19:00 80 27 108/52 (70) 100 09/07/19 18:30 82 27 108/52 (70) 100 09/07/19 18:00 Mechanical Ventilator 09/07/19 18:00 99.9 85 28 105/51 (69) 100 09/07/19 17:00 88 24 111/61 (78) 100 09/07/19 17:00 Mechanical Ventilator 09/07/19 16:30 88 24 113/56 (75) 100 09/07/19 16:00 85 24 108/55 (72) 100 09/07/19 16:00 Mechanical Ventilator 09/07/19 16:00 84 09/07/19 16:00 100 09/07/19 16:00 Mechanical Ventilator 09/07/19 15:30 86 24 122/68 (86) 99 09/07/19 15:12 86 26 100 09/07/19 15:00 86 13 109/62 (78) 99 09/07/19 15:00 Mechanical Ventilator 09/07/19 14:30 89 7 109/64 (79) 100 09/07/19 14:00 Mechanical Ventilator 09/07/19 14:00 91 15 135/73 (93) 100 09/07/19 13:30 91 21 143/77 (99) 100 09/07/19 13:00 92 17 160/79 (106) 98 09/07/19 13:00 Mechanical Ventilator 09/07/19 12:30 88 33 141/70 (93) 100 09/07/19 12:00 Mechanical Ventilator 09/07/19 12:00 87 09/07/19 12:00 Mechanical Ventilator 09/07/19 12:00 100 09/07/19 12:00 100.5 88 34 140/73 (95) 100 09/07/19 11:15 87 34 100 09/07/19 11:00 Mechanical Ventilator 09/07/19 11:00 91 34 133/74 (93) 100 09/07/19 10:30 94 35 137/66 (89) 100 09/07/19 10:00 Mechanical Ventilator 09/07/19 10:00 95 36 131/73 (92) 100 09/07/19 09:30 95 35 123/56 (78) 100 09/07/19 09:00 Mechanical Ventilator 09/07/19 09:00 94 32 139/54 (82) 99 09/07/19 08:41 94 108/94 09/07/19 08:30 92 32 108/79 (89) 100 4/25/20 08:02 Mechanical Ventilator 09/07/19 08:00 100.5 92 29 122/59 (80) 100 09/07/19 08:00 Mechanical Ventilator 09/07/19 08:00 91 09/07/19 08:00 100 09/07/19 07:05 94 28 100 09/07/19 07:00 92 27 115/53 (73) 99 09/07/19 06:30 95 27 117/55 (75) 100 09/07/19 06:30 94 29 09/07/19 06:00 97 29 119/53 (75) 100 09/07/19 05:30 94 29 116/60 (78) 100 09/07/19 05:00 94 24 122/64 (83) 100 09/07/19 04:30 95 30 115/71 (86) 100 09/07/19 04:00 100 09/07/19 04:00 Mechanical Ventilator 09/07/19 04:00 100 09/07/19 04:00 98.7 96 31 114/64 (81) 100 09/07/19 03:30 97 30 121/61 (81) 100 09/07/19 03:00 100 29 114/57 (76) 98 09/07/19 02:41 101 29 100 09/07/19 02:30 101 29 119/71 (87) 98 09/07/19 02:00 101 29 123/68 (86) 98 09/07/19 01:30 102 29 126/68 (87) 98 09/07/19 01:02 101 32 100 Mechanical Ventilator 100 103 32 100 09/07/19 01:00 102 29 127/67 (87) 99 09/07/19 00:30 101 30 133/71 (91) 98 09/07/19 00:00 100 09/07/19 00:00 95 09/07/19 00:00 Mechanical Ventilator 09/07/19 00:00 28 Endotracheal Tube 100 09/07/19 00:00 99.2 101 30 133/71 (91) 97 09/06/19 23:30 99 30 131/68 (89) 94 09/06/19 23:00 95 29 135/68 (90) 95 09/06/19 23:00 28 Endotracheal Tube 100 09/06/19 22:49 93 31 100 09/06/19 22:30 94 31 138/73 (94) 93 09/06/19 22:00 91 30 142/68 (92) 96 09/06/19 22:00 29 Endotracheal Tube 100 09/06/19 21:37 99.0 09/06/19 21:30 94 30 133/67 (89) 100 09/06/19 21:11 99 130/74 09/06/19 21:07 27 Endotracheal Tube 100 09/06/19 21:07 27 Mechanical Ventilator 100 09/06/19 21:00 96 37 131/61 (84) 100 09/06/19 20:30 97 27 130/74 (92) 99 09/06/19 20:00 100 09/06/19 20:00 Mechanical Ventilator 09/06/19 20:00 95 09/06/19 20:00 98.8 96 26 130/63 (85) 100 09/06/19 20:00 28 Endotracheal Tube 100 09/06/19 19:30 96 27 126/57 (80) 100 09/06/19 19:11 88 29 100 Mechanical Ventilator 100 90 22 100 09/06/19 19:00 92 30 130/67 (88) 100 09/06/19 19:00 22 Endotracheal Tube 100 09/06/19 18:30 97 25 129/66 (87) 99 09/06/19 18:00 99.0 95 25 125/70 (88) 99 09/06/19 17:30 93 24 127/66 (86) 100 09/06/19 17:00 92 23 122/67 (85) 99 09/06/19 16:49 90 23 100 09/06/19 16:30 92 24 121/56 (77) 100 09/06/19 16:00 92 23 123/63 (83) 99 09/06/19 16:00 Mechanical Ventilator 09/06/19 16:00 100 09/06/19 16:00 96 09/06/19 15:30 92 25 120/70 (87) 97 09/06/19 15:12 80 22 98 Mechanical Ventilator 100 80 22 100 09/06/19 15:00 Mechanical Ventilator 09/06/19 15:00 91 24 121/65 (83) 98 09/06/19 14:00 89 24 120/69 (86) 100 09/06/19 13:30 90 23 119/69 (86) 100 09/06/19 13:00 89 23 119/65 (83) 100 09/06/19 13:00 Mechanical Ventilator 09/06/19 12:00 88 09/06/19 12:00 98.7 87 24 121/56 (77) 100 09/06/19 12:00 100 09/06/19 12:00 Mechanical Ventilator 09/06/19 11:30 87 23 119/72 (88) 98 09/06/19 11:29 89 24 100 09/06/19 11:00 Mechanical Ventilator 09/06/19 11:00 86 23 125/67 (86) 99 09/06/19 10:30 85 24 121/64 (83) 99 09/06/19 10:00 84 23 121/61 (81) 99 09/06/19 09:30 86 23 114/59 (77) 97 09/06/19 09:29 88 20 100 09/06/19 09:00 Endotracheal Tube 09/06/19 09:00 85 22 112/57 (75) 97 09/06/19 08:31 82 116/58 09/06/19 08:30 83 21 119/56 (77) 100 09/06/19 08:00 84 09/06/19 08:00 Mechanical Ventilator 09/06/19 08:00 100 09/06/19 08:00 99.1 83 22 116/58 (77) 100 09/06/19 08:00 Mechanical Ventilator Intake and Output 09/07/19 09/08/19 19:00 07:00 Intake Total 1590 ml 1595 ml Output Total 395 ml 450 ml Balance 1195 ml 1145 ml Free Water 140 ml IV Total 960 ml 855 ml Tube Feeding 600 ml 600 ml Other 30 ml Output Urine Total 395 ml 450 ml # Bowel Movements 4 2 Labs Test 09/05/19 09:45 09/06/19 12:25 09/06/19 14:40 09/07/19 04:30 Arterial Blood pH 7.328 (7.350-7.450) 7.346 (7.350-7.450) Arterial Blood Partial Pressure CO2 73.4 mmHg (35.0-45.0) 75.0 mmHg (35.0-45.0) Arterial Blood Partial Pressure O2 83.0 mmHg (75.0-100.0) 69.2 mmHg (75.0-100.0) Arterial Blood HCO3 37.7 mmol/L (22.0-26.0) 40.1 mmol/L (22.0-26.0) Arterial Blood Oxygen Saturation 95.1 % (95-100) 93.1 % (95-100) Arterial Blood Base Excess 9.6 (-2-2) 12 (-2-2) Jag Test Positive Positive White Blood Count 11.0 K/UL (4.8-10.8) 13.7 K/UL (4.8-10.8) Red Blood Count 3.08 M/UL (4.70-6.10) 3.32 M/UL (4.70-6.10) Hemoglobin 9.7 G/DL (14.2-18.0) 10.3 G/DL (14.2-18.0) Hematocrit 28.9 % (42.0-52.0) 30.8 % (42.0-52.0) Mean Corpuscular Volume 94 FL (80-99) 93 FL (80-99) Mean Corpuscular Hemoglobin 31.5 PG (27.0-31.0) 30.9 PG (27.0-31.0) Mean Corpuscular Hemoglobin Concent 33.6 G/DL (32.0-36.0) 33.4 G/DL (32.0-36.0) Red Cell Distribution Width 13.8 % (11.6-14.8) 13.4 % (11.6-14.8) Platelet Count 117 K/UL (150-450) 108 K/UL (150-450) Mean Platelet Volume 9.0 FL (6.5-10.1) 8.4 FL (6.5-10.1) Neutrophils (%) (Auto) % (45.0-75.0) % (45.0-75.0) Lymphocytes (%) (Auto) % (20.0-45.0) % (20.0-45.0) Monocytes (%) (Auto) % (1.0-10.0) % (1.0-10.0) Eosinophils (%) (Auto) % (0.0-3.0) % (0.0-3.0) Basophils (%) (Auto) % (0.0-2.0) % (0.0-2.0) Differential Total Cells Counted 100 100 Neutrophils % (Manual) 90 % (45-75) 82 % (45-75) Lymphocytes % (Manual) 6 % (20-45) 9 % (20-45) Monocytes % (Manual) 4 % (1-10) 3 % (1-10) Eosinophils % (Manual) 0 % (0-3) 2 % (0-3) Basophils % (Manual) 0 % (0-2) 0 % (0-2) Band Neutrophils 0 % (0-8) 0 % (0-8) Platelet Estimate Decreased Decreased Platelet Morphology Normal Normal Hypochromasia 2+ 1+ Anisocytosis 1+ Spherocytes 1+ Sodium Level 141 MMOL/L (136-145) 136 MMOL/L (136-145) Potassium Level 5.4 MMOL/L (3.5-5.1) 5.7 MMOL/L (3.5-5.1) Chloride Level 101 MMOL/L (98-107) 99 MMOL/L (98-107) Carbon Dioxide Level 38 MMOL/L (21-32) 35 MMOL/L (21-32) Anion Gap 2 mmol/L (5-15) 2 mmol/L (5-15) Blood Urea Nitrogen 28 mg/dL (7-18) 30 mg/dL (7-18) Creatinine 0.6 MG/DL (0.55-1.30) 0.7 MG/DL (0.55-1.30) Estimat Glomerular Filtration Rate > 60 mL/min (>60) > 60 mL/min (>60) Glucose Level 194 MG/DL (74-106) 140 MG/DL (74-106) Calcium Level 7.5 MG/DL (8.5-10.1) 7.8 MG/DL (8.5-10.1) Total Bilirubin 0.2 MG/DL (0.2-1.0) 0.3 MG/DL (0.2-1.0) Aspartate Amino Transf (AST/SGOT) 56 U/L (15-37) 118 U/L (15-37) Alanine Aminotransferase (ALT/SGPT) 32 U/L (12-78) 52 U/L (12-78) Alkaline Phosphatase 210 U/L (46-116) 251 U/L (46-116) Total Protein 6.0 G/DL (6.4-8.2) 5.9 G/DL (6.4-8.2) Albumin 1.1 G/DL (3.4-5.0) 1.2 G/DL (3.4-5.0) Globulin 4.9 g/dL 4.7 g/dL Albumin/Globulin Ratio 0.2 (1.0-2.7) 0.3 (1.0-2.7) Metamyelocytes % 3 % (0-0) Myelocytes % 1 % (0-0) Nucleated Red Blood Cells 2 /100 WBC Test 09/08/19 03:50 White Blood Count 15.1 K/UL (4.8-10.8) Red Blood Count 3.94 M/UL (4.70-6.10) Hemoglobin 12.4 G/DL (14.2-18.0) Hematocrit 34.8 % (42.0-52.0) Mean Corpuscular Volume 88 FL (80-99) Mean Corpuscular Hemoglobin 31.4 PG (27.0-31.0) Mean Corpuscular Hemoglobin Concent 35.6 G/DL (32.0-36.0) Red Cell Distribution Width 10.7 % (11.6-14.8) Platelet Count 268 K/UL (150-450) Mean Platelet Volume 6.6 FL (6.5-10.1) Neutrophils (%) (Auto) % (45.0-75.0) Lymphocytes (%) (Auto) % (20.0-45.0) Monocytes (%) (Auto) % (1.0-10.0) Eosinophils (%) (Auto) % (0.0-3.0) Basophils (%) (Auto) % (0.0-2.0) Sodium Level 143 MMOL/L (136-145) Potassium Level 4.0 MMOL/L (3.5-5.1) Chloride Level 108 MMOL/L (98-107) Carbon Dioxide Level 21 MMOL/L (21-32) Anion Gap 14 mmol/L (5-15) Blood Urea Nitrogen 35 mg/dL (7-18) Creatinine 0.9 MG/DL (0.55-1.30) Estimat Glomerular Filtration Rate > 60 mL/min (>60) Glucose Level 144 MG/DL (74-106) Calcium Level 8.3 MG/DL (8.5-10.1) Ferritin 714 NG/ML (8-388) Total Bilirubin 0.5 MG/DL (0.2-1.0) Aspartate Amino Transf (AST/SGOT) 83 U/L (15-37) Alanine Aminotransferase (ALT/SGPT) 63 U/L (12-78) Alkaline Phosphatase 99 U/L (46-116) Lactate Dehydrogenase 873 U/L (81-234) C-Reactive Protein, Quantitative 10.5 mg/dL (0.00-0.90) Total Protein 6.9 G/DL (6.4-8.2) Albumin 2.3 G/DL (3.4-5.0) Globulin 4.6 g/dL Albumin/Globulin Ratio 0.5 (1.0-2.7) Height (Feet): 5 Height (Inches): 8.00 Weight (Pounds): 167 Objective Physical Exam General: Awake, nonverbal, febrile, intubated HEENT: NC/AT. EOMI. Cardiovascular: Tachycardic. S1 and S2 normal. No murmur appreciated Resp: Increased work of breathing with tachypnea. ++ intubated Abdomen: Abdomen is soft, nondistended. PEG in place ++ Skin: Intact. No abrasions, laceration or rash over the exposed skin MSK: No obvious deformity. Neuro: Awake, moaning incomprehensively, nonverbal. Ext: triple lumen++ Darinel Smith MD Sep 08, 2019 07:42
[2019-09-08] MEDS: Pantoprazole Inj IVP SCH (08:01)
[2019-09-08] MEDS: Metoprolol Tartrate 100mg tab GT SCH ×2 (08:01→20:30)
[2019-09-08] MEDS: Solu-MEDROL 40mg Inj IVP SCH ×2 (08:01→20:29)
[2019-09-08] MEDS: Phenytoin Susp 100mg/4ml GT SCH (08:02)
[2019-09-08] MEDS: levETIRAcetam 500mg/5ml Liquid GT SCH ×2 (08:02→20:30)
[2019-09-08] MEDS: Eliquis 2.5mg tablet GT SCH ×2 (08:03→16:59)
--- NOTE | 2019-09-08 08:49 | NUR ---
NURSE NOTES: Patient is sedated -2RASS, on fentanyl 170mcg/hr. Patient is orally intubated ETT 7.5 at 25cm right lip line with previous settings, saturating 99% at this time. Patient has GT infusing Glucerna 1.2 at 50ml/hr, no residual noted. HOB elevated for aspiration precautions. Scheduled medications administered. Right IJ triple lumen intact, 2 ports patent, 1 port is clogged. Patient has a verduzco catheter draining to gravity with dark jaclyn urine output. Scrotal edema and generalized body edema noted. RT present at bedside for ABG. Bed locked, alarmed, and in lowest position, padded side rails up x2 for seizure precautions. Patient is afebrile at this time. Will continue to monitor patient.
--- NOTE | 2019-09-08 08:58 | Diagnostic Imaging Report ---
EXAM: XR Chest, 1 View CLINICAL HISTORY: INFECT TECHNIQUE: Frontal view of the chest. COMPARISON: 09/06/19 FINDINGS: Lungs: There is been no significant change in moderate to severe diffuse bilateral alveolar infiltrates since the prior study. Pleural space: Unremarkable. No pneumothorax. Heart: Mild cardiomegaly. Mediastinum: Unremarkable. Bones/joints: Unremarkable. Tubes, lines and devices: There is an endotracheal tube and right IJ central venous catheter in good position IMPRESSION: There is been no significant change in moderate to severe diffuse bilateral alveolar infiltrates since the prior study.
--- NOTE | 2019-09-08 09:11 | Diagnostic Imaging Report ---
EXAM: XR Abdomen, 2 Views CLINICAL HISTORY: F/U TECHNIQUE: Frontal view of the abdomen/pelvis with upright view of the abdomen. COMPARISON: 08/29/19 FINDINGS: Intraperitoneal space: No free air. Gastrointestinal tract: There is been improvement in dilatation of multiple loops of small and large bowel since the prior study consistent with resolving ileus. No obstructive pattern is identified. Bones/joints: Unremarkable. IMPRESSION: There is been improvement in dilatation of multiple loops of small and large bowel since the prior study consistent with resolving ileus. No obstructive pattern is identified.
[2019-09-08] MEDS: Polymyxin B Sulfate 500,000 UNITS in D5W 500ml 500 ML IVPB SCH (09:12)
[2019-09-08] MEDS: fentaNYL Citrate 2500mcg in NS 250ml IV SCH ×2 (09:12→23:58)
--- NOTE | 2019-09-08 09:13 | Pulmonolgy Critical Care Note ---
Sera Bacon FOAM CHARGER 09/08/19 0913: Critical Care - Asmt/Plan Assessment/Plan: ASSESSMENT Acute hypoxemic and hypercapnic respiratory failure ( required intubation) Suspected 2019 novel coronavirus infection Pneumonia History of CVA (cerebrovascular accident) Acute encephalopathy Multi-infarct dementia Uncontrolled seizures Atrial fibrillation and flutter Assessment/Plan: ABG this am with worsening hypercapnia, will increase AC to 22 , Continue ventilatory support/hold off on weaning TV 450, FIo2 100% , AC 22, PEEP 12 ; wean O2 Monitor gas exchange Proning 12hr on/off (if able) MDI in line with Vent taper SM to 10 IV BID Completed 5 days of Plaquenil Zyvox/Candis/Polymyxin per ID, SCX + 08/26 MRSA, SCX 09/03 + MRSA Monitor CRP and ferritin: last LDH 873, ferritin 714 and CRP 10.5, prior IL-6 - 62 D/W pharmacy RE: Tociluzumab - per pharmacist on national shortage and cannot get, will continue to follow up Remdesivir limited to trial, cannot get under compassionate care Monitor volumes and renal function ICU sedation: Fent gtt for RASS -2 with PRN Versed F/U neuro recs, continue AED's Monitor LFT's, TF's with strict aspiration precautions DVT Px: Eliquis FC, continue to discuss GOC Overall prognosis poor given gravity of his condition Disposition: keep in ICU Time Spent (Minutes): 40 Notes Reviewed: log deckman, cardio, ID, neuro Discussed with: nurses, consultants case discussed and evaluated by supervising physician Critical Care - Objective Last 24 Hour Vital Signs Date Time Temp Pulse Resp B/P (MAP) Pulse Ox O2 Delivery O2 Flow Rate FiO2 09/08/19 08:01 76 166/70 09/08/19 08:00 Mechanical Ventilator 09/08/19 08:00 82 26 156/75 (102) 93 09/08/19 08:00 100 09/08/19 07:00 76 25 166/70 (102) 91 09/08/19 06:30 94 29 09/08/19 06:00 78 26 164/78 (106) 09/08/19 06:00 26 Mechanical Ventilator 100 09/08/19 05:15 99 30 100 09/08/19 05:00 79 25 166/84 (111) 93 09/08/19 05:00 24 Mechanical Ventilator 100 09/08/19 04:45 28 Mechanical Ventilator 100 09/08/19 04:30 26 Mechanical Ventilator 100 09/08/19 04:15 24 Mechanical Ventilator 100 09/08/19 04:00 77 27 155/67 (96) 98 09/08/19 04:00 77 09/08/19 04:00 24 Mechanical Ventilator 100 09/08/19 04:00 100 09/08/19 04:00 Mechanical Ventilator 09/08/19 03:45 28 Mechanical Ventilator 100 09/08/19 03:15 27 Mechanical Ventilator 100 09/08/19 03:05 95 28 100 09/08/19 03:00 26 Mechanical Ventilator 100 09/08/19 03:00 97.9 80 30 148/79 (102) 97 09/08/19 02:50 28 Mechanical Ventilator 100 09/08/19 02:30 26 Mechanical Ventilator 100 09/08/19 02:00 81 31 148/59 (88) 99 09/08/19 02:00 26 Mechanical Ventilator 100 09/08/19 01:40 28 Mechanical Ventilator 56 09/08/19 01:20 30 Mechanical Ventilator 100 09/08/19 01:02 89 30 100 Mechanical Ventilator 100 88 29 100 09/08/19 01:00 82 31 154/60 (91) 96 09/08/19 01:00 30 Mechanical Ventilator 100 09/08/19 00:40 34 Mechanical Ventilator 100 09/08/19 00:20 32 Mechanical Ventilator 100 09/08/19 00:00 80 31 151/59 (89) 81 09/08/19 00:00 Mechanical Ventilator 09/07/19 23:29 74 29 100 09/07/19 23:00 24 Mechanical Ventilator 100 09/07/19 23:00 28 Mechanical Ventilator 100 09/07/19 23:00 65 26 105/56 (72) 99 09/07/19 22:00 68 25 118/60 (79) 100 09/07/19 22:00 26 Mechanical Ventilator 100 09/07/19 21:00 100 09/07/19 21:00 98.8 25 110/54 (72) 100 09/07/19 21:00 27 Mechanical Ventilator 100 09/07/19 20:40 75 107/54 09/07/19 20:35 84 25 100 09/07/19 20:00 77 09/07/19 20:00 Mechanical Ventilator 09/07/19 20:00 26 Mechanical Ventilator 100 09/07/19 20:00 77 26 109/56 (73) 100 09/07/19 19:01 80 24 100 Mechanical Ventilator 100 82 26 100 09/07/19 19:00 27 Mechanical Ventilator 100 09/07/19 19:00 80 27 108/52 (70) 100 09/07/19 18:30 82 27 108/52 (70) 100 09/07/19 18:00 Mechanical Ventilator 09/07/19 18:00 99.9 85 28 105/51 (69) 100 09/07/19 17:00 88 24 111/61 (78) 100 09/07/19 17:00 Mechanical Ventilator 09/07/19 16:30 88 24 113/56 (75) 100 09/07/19 16:00 85 24 108/55 (72) 100 09/07/19 16:00 Mechanical Ventilator 09/07/19 16:00 84 09/07/19 16:00 100 09/07/19 16:00 Mechanical Ventilator 09/07/19 15:30 86 24 122/68 (86) 99 09/07/19 15:12 86 26 100 09/07/19 15:00 86 13 109/62 (78) 99 09/07/19 15:00 Mechanical Ventilator 09/07/19 14:30 89 7 109/64 (79) 100 09/07/19 14:00 Mechanical Ventilator 09/07/19 14:00 91 15 135/73 (93) 100 09/07/19 13:30 91 21 143/77 (99) 100 09/07/19 13:00 92 17 160/79 (106) 98 09/07/19 13:00 Mechanical Ventilator 09/07/19 12:30 88 33 141/70 (93) 100 09/07/19 12:00 Mechanical Ventilator 09/07/19 12:00 87 09/07/19 12:00 Mechanical Ventilator 09/07/19 12:00 100 09/07/19 12:00 100.5 88 34 140/73 (95) 100 09/07/19 11:15 87 34 100 09/07/19 11:00 Mechanical Ventilator 09/07/19 11:00 91 34 133/74 (93) 100 09/07/19 10:30 94 35 137/66 (89) 100 4/25/20 10:00 Mechanical Ventilator 09/07/19 10:00 95 36 131/73 (92) 100 09/07/19 09:30 95 35 123/56 (78) 100 Objective: Status: sedated Condition: critical HEENT: atraumatic, normocephalic, OP with ET in place, intact, Neck: RIJ CL intact Lungs: scattered rhonchi Heart: HR/BP stable, regular, SR with 1 st degree AV block with some PAC Abdomen: soft, non-tender, active bowel sounds, feeding tube, : Swartz, scrotal edema Extremities: no edema Critical Care - Subjective ROS Limited/Unobtainable: Yes Interval Events: worsening leukocytosis, fever last night ABG this am with worsening hypercapnia CXR essentially unchanged sedated Condition: critical, grave IV Access: central - RIJ intact FI02: 100 Vent Support Breath Rate: 20 Vent Support Mode: AC Vent Tidal Volume: 450 Sputum Amount: Small PEEP: 12.0 PIP: 46 Drips: Fentanyl gtt 170 mcg/min Tube Feeding Amount: 50 I&O: Intake and Output 09/07/19 09/08/19 19:00 07:00 Intake Total 1590 ml 1595 ml Output Total 395 ml 450 ml Balance 1195 ml 1145 ml Free Water 140 ml IV Total 960 ml 855 ml Tube Feeding 600 ml 600 ml Other 30 ml Output Urine Total 395 ml 450 ml # Bowel Movements 4 2 CXR: CXR 09/07 no significant change in moderate to severe diffuse bilateral alveolar infiltrates since the prior study. ET-Tube: 7.5 ET Position: 25 David Nash MD 09/08/192041: Critical Care - Asmt/Plan Assessment/Plan: Patient seen and examined with FOAM CHARGER. Case d/w FULL STACK WEB DEVELOPER, RT and team. Agree with A& P as outlined above as it reflects our joint deliberations. Sera Bacon NP Sep 08, 2019 09:13 David Nash MD Sep 08, 2019 20:42
--- NOTE | 2019-09-08 10:00 | NUR ---
NURSE NOTES: Patient remains sedated at -2RASS, fentanyl infusing at 170mcg/hr. No apparent distress noted at this time. Sera Bacon PACKING AND FINAL ASSEMBLY SUPERVISOR aware of ABG results, ordered to adjust vent settings; carried out by RT. Current vent settings: AC 22, TV 450, FiO2 100% and PEEP 10. Patient currently saturating 93%. Will continue to monitor patient.
--- NOTE | 2019-09-08 12:00 | NUR ---
NURSE NOTES: Patient sedated at -2RASS, fentanyl is infusing at 170mcg/hr on right IJ. Patient tolerating vent settings, patient is saturating 98% at this time. No s/s of distress at this time. Will continue to monitor.
--- NOTE | 2019-09-08 14:45 | NUR ---
NURSE NOTES: Patient is afebrile. Remains sedated -2 RASS score, fentanyl infusing at 170mcg/hr. Right IJ intact, patent. GT patent, TF Glucerna 1.2 infusing at 50ml/hr. HOB remains elevated. Left patient clean and dry. Will continue to monitor.
--- NOTE | 2019-09-08 15:07 | General Progress Note ---
Assessment/Plan Assessment/Plan: 83YO M with HTN, HLD, COPD, CAD, Seizure disorder presenting with cough and shortness of breath. In the ED, patient was found to be tachycardic (130's) and tachypnic (33) and febrile at 101.2. #Hypoxemic acute respiratory failure 2/2 COVID #Septic shock #Covid19 positive #transaminitis - likely 2/2 to above, downtrending/stable #Fevers #MRSA pneumonia #Drug reaction/Red Man syndrome - resolved -Appreciate ICU care -Continue vent management per the ICU team, daily SBT -Cont. contact plus droplet isolation. -Continuous human resources safety manager. -s/p Plaquenil -08/26 BCx NGTD -08/26 SCx - MRSA -08/29 UCx NGTD 09/03 SCx +staph aureus -Steroids per Pulm -ID following: linezolid, meropenem #Hyperkalemia #Hypokalemia - resolved -ctm, replace PRN -s/p Kayexalate -no labs yet today -repeat BMP in AM #Abdominal distension - improved, Ileus -KUB reviewed -d/w general sx, likely ileus #History of Seizure disorder: -cont Dilantin and Keppra -Neurology following #Paroxysmal Atrial flutter with rapid ventricular response #Accelerated HTN - resolved #HLD #CAD #Eliquis use #elevated troponins likely 2/2 demand ischemia, down trending -MTP increased to 100 BID, hydralazine PRN -Eliquis 2.5 -Cardio following, recs appreciated #Sacral Decubitus Ulcer -general sx/wound care following -recs appreciated prognosis guarded I spent 70 minutes on this patient's case, and 38 mins was dedicated to critical care. Subjective Date patient seen: Sep 08, 2019 Allergies: Coded Allergies: No Known Allergies (Unverified , 02/29/16) Subjective remains intubated & sedated on fent Flipping in and out of a fib Objective Last 24 Hour Vital Signs Date Time Temp Pulse Resp B/P (MAP) Pulse Ox O2 Delivery O2 Flow Rate FiO2 09/08/19 14:00 80 28 107/54 (71) 97 09/08/19 14:00 27 Mechanical Ventilator 09/08/19 13:30 80 28 116/70 (85) 97 09/08/19 13:00 97.2 79 28 105/61 (76) 99 09/08/19 13:00 28 Mechanical Ventilator 09/08/19 12:00 100 09/08/19 12:00 79 09/08/19 12:00 28 Mechanical Ventilator 09/08/19 12:00 78 28 112/71 (85) 97 09/08/19 12:00 Mechanical Ventilator 09/08/19 11:00 29 Mechanical Ventilator 09/08/19 11:00 77 28 121/68 (85) 96 09/08/19 10:35 76 28 100 09/08/19 10:00 75 27 141/73 (95) 93 09/08/19 10:00 28 Mechanical Ventilator 09/08/19 09:12 30 Mechanical Ventilator 09/08/19 09:00 80 19 124/69 (87) 93 09/08/19 09:00 27 Mechanical Ventilator 09/08/19 08:32 98.0 81 27 159/77 (104) 99 09/08/19 08:01 76 166/70 09/08/19 08:00 Mechanical Ventilator 09/08/19 08:00 27 Mechanical Ventilator 09/08/19 08:00 82 26 156/75 (102) 93 09/08/19 08:00 100 09/08/19 08:00 83 09/08/19 07:10 77 24 100 09/08/19 07:00 76 25 166/70 (102) 91 09/08/19 07:00 25 Mechanical Ventilator 09/08/19 06:30 94 29 09/08/19 06:00 78 26 164/78 (106) 09/08/19 06:00 26 Mechanical Ventilator 100 09/08/19 05:15 99 30 100 09/08/19 05:00 79 25 166/84 (111) 93 09/08/19 05:00 24 Mechanical Ventilator 100 09/08/19 04:45 28 Mechanical Ventilator 100 09/08/19 04:30 26 Mechanical Ventilator 100 09/08/19 04:15 24 Mechanical Ventilator 100 09/08/19 04:00 77 27 155/67 (96) 98 09/08/19 04:00 77 09/08/19 04:00 24 Mechanical Ventilator 100 09/08/19 04:00 100 09/08/19 04:00 Mechanical Ventilator 09/08/19 03:45 28 Mechanical Ventilator 100 09/08/19 03:15 27 Mechanical Ventilator 100 09/08/19 03:05 95 28 100 09/08/19 03:00 26 Mechanical Ventilator 100 09/08/19 03:00 97.9 80 30 148/79 (102) 97 09/08/19 02:50 28 Mechanical Ventilator 100 09/08/19 02:30 26 Mechanical Ventilator 100 09/08/19 02:00 81 31 148/59 (88) 99 09/08/19 02:00 26 Mechanical Ventilator 100 09/08/19 01:40 28 Mechanical Ventilator 56 09/08/19 01:20 30 Mechanical Ventilator 100 09/08/19 01:02 89 30 100 Mechanical Ventilator 100 88 29 100 09/08/19 01:00 82 31 154/60 (91) 96 09/08/19 01:00 30 Mechanical Ventilator 100 09/08/19 00:40 34 Mechanical Ventilator 100 09/08/19 00:20 32 Mechanical Ventilator 100 09/08/19 00:00 80 31 151/59 (89) 81 09/08/19 00:00 Mechanical Ventilator 09/07/19 23:29 74 29 100 09/07/19 23:00 24 Mechanical Ventilator 100 09/07/19 23:00 28 Mechanical Ventilator 100 09/07/19 23:00 65 26 105/56 (72) 99 09/07/19 22:00 68 25 118/60 (79) 100 09/07/19 22:00 26 Mechanical Ventilator 100 09/07/19 21:00 100 09/07/19 21:00 98.8 25 110/54 (72) 100 09/07/19 21:00 27 Mechanical Ventilator 100 09/07/19 20:40 75 107/54 09/07/19 20:35 84 25 100 09/07/19 20:00 77 09/07/19 20:00 Mechanical Ventilator 09/07/19 20:00 26 Mechanical Ventilator 100 09/07/19 20:00 77 26 109/56 (73) 100 09/07/19 19:01 80 24 100 Mechanical Ventilator 100 82 26 100 09/07/19 19:00 27 Mechanical Ventilator 100 09/07/19 19:00 80 27 108/52 (70) 100 09/07/19 18:30 82 27 108/52 (70) 100 09/07/19 18:00 Mechanical Ventilator 09/07/19 18:00 99.9 85 28 105/51 (69) 100 09/07/19 17:00 88 24 111/61 (78) 100 09/07/19 17:00 Mechanical Ventilator 09/07/19 16:30 88 24 113/56 (75) 100 09/07/19 16:00 85 24 108/55 (72) 100 09/07/19 16:00 Mechanical Ventilator 09/07/19 16:00 84 09/07/19 16:00 100 09/07/19 16:00 Mechanical Ventilator 09/07/19 15:30 86 24 122/68 (86) 99 09/07/19 15:12 86 26 100 Intake and Output 09/07/19 09/08/19 19:00 07:00 Intake Total 1590 ml 1612 ml Output Total 395 ml 450 ml Balance 1195 ml 1162 ml Free Water 140 ml IV Total 960 ml 872 ml Tube Feeding 600 ml 600 ml Other 30 ml Output Urine Total 395 ml 450 ml # Bowel Movements 4 2 Laboratory Tests 09/08/19 03:50: White Blood Count 15.1H, Red Blood Count 3.94L, Hemoglobin 12.4L, Hematocrit 34.8L, Mean Corpuscular Volume 88, Mean Corpuscular Hemoglobin 31.4H, Mean Corpuscular Hemoglobin Concent 35.6, Red Cell Distribution Width 10.7L, Platelet Count 268#, Mean Platelet Volume 6.6, Neutrophils (%) (Auto) , Lymphocytes (%) (Auto) , Monocytes (%) (Auto) , Eosinophils (%) (Auto) , Basophils (%) (Auto) , Differential Total Cells Counted 100, Neutrophils % ( Manual) 90H, Lymphocytes % (Manual) 4L, Monocytes % (Manual) 5, Eosinophils % ( Manual) 0, Basophils % (Manual) 0, Band Neutrophils 1, Platelet Estimate Adequate, Platelet Morphology Normal, Red Blood Cell Morphology Normal, Sodium Level 143, Potassium Level 4.0, Chloride Level 108H, Carbon Dioxide Level 21, Anion Gap 14, Blood Urea Nitrogen 35H, Creatinine 0.9, Estimat Glomerular Filtration Rate > 60, Glucose Level 144H, Calcium Level 8.3L, Ferritin 714H, Total Bilirubin 0.5, Aspartate Amino Transf (AST/SGOT) 83H, Alanine Aminotransferase (ALT/SGPT) 63, Alkaline Phosphatase 99, Lactate Dehydrogenase 873H, C-Reactive Protein, Quantitative 10.5H, Total Protein 6.9, Albumin 2.3L, Globulin 4.6, Albumin/Globulin Ratio 0.5L 09/08/19 08:37: Arterial Blood pH 7.265L, Arterial Blood Partial Pressure CO2 81.2*H, Arterial Blood Partial Pressure O2 71.3L, Arterial Blood HCO3 36.0H, Arterial Blood Oxygen Saturation 92.0L, Arterial Blood Base Excess 6.7H, Jag Test Positive Height (Feet): 5 Height (Inches): 8.00 Weight (Pounds): 167 Objective General Appearance: intubated HEENT: ET tube in place Cardiovascular: irregularly irregular Respiratory/Chest: equal rise in lungs b/l Abdomen: appears non-distended Ext: no edema noted Von Grullon MD Sep 08, 2019 15:07
--- NOTE | 2019-09-08 16:50 | NUR ---
NURSE NOTES: Provided complete bed bath, linens changed, and placed patient in clean gown. Suctioned via ETT and orally, provided oral care. GT intact, patent, TF Glucerna 1.2 infusing at 50ml/hr, no residual noted. HOB placed elevated after care. Patient remains sedated -2RASS, fentanyl infusing 170mcg/hr on right triple lumen IJ. Swartz catheter intact, draining to gravity. No s/s of pain/discomfort. Will continue to monitor.
--- NOTE | 2019-09-08 18:00 | NUR ---
NURSE NOTES: Patient remains sedated -2RASS, fentanyl infusing at 170mcg/hr. Patient tolerating vent settings, saturating 95%. Glucerna infusing on GT at 50ml/hr. No s/s of distress at this time. Will continue to monitor.
--- NOTE | 2019-09-08 19:08 | NUR ---
HAND-OFF: Report given to Jessica Stone RN. Endorsed plan of care.
--- NOTE | 2019-09-08 19:40 | NUR ---
NURSE NOTES: Report received from LORENE Hernandez for continuity of care. Pt resting, nonverbal, no signs of distress. Pupils equal and reactive to light but sluggish. Pt intubated AC 22, TV 450, FiO2 100% and PEEP 10; satting at 97% O2. RT IJ triple lumen patent, fentanyl infusing at 170 mcg/min. Gtube noted and running Glucerna at 50cc/hr. SZ precautions in place. Head of bed greater than 30 degrees. [address] blanket in place. All safety measures met; will continue to monitor.
--- NOTE | 2019-09-08 19:58 | Neurology Progress Note ---
Interim History Interim History ROS Limited/Unobtainable: Yes Interim History intubated sedated Objective Physical Exam Last Vital Signs Date Time Temp Pulse Resp B/P (MAP) Pulse Ox O2 Delivery O2 Flow Rate FiO2 09/08/19 19:00 82 29 115/61 (79) 96 09/08/19 18:00 Mechanical Ventilator 09/08/19 16:00 100 09/08/19 16:00 97.4 09/04/19 16:14 21.0 Laboratory Tests Test 09/08/19 03:50 09/08/19 08:37 White Blood Count 15.1 K/UL (4.8-10.8) H Red Blood Count 3.94 M/UL (4.70-6.10) L Hemoglobin 12.4 G/DL (14.2-18.0) L Hematocrit 34.8 % (42.0-52.0) L Mean Corpuscular Volume 88 FL (80-99) Mean Corpuscular Hemoglobin 31.4 PG (27.0-31.0) H Mean Corpuscular Hemoglobin Concent 35.6 G/DL (32.0-36.0) Red Cell Distribution Width 10.7 % (11.6-14.8) L Platelet Count 268 K/UL (150-450) # Mean Platelet Volume 6.6 FL (6.5-10.1) Neutrophils (%) (Auto) % (45.0-75.0) Lymphocytes (%) (Auto) % (20.0-45.0) Monocytes (%) (Auto) % (1.0-10.0) Eosinophils (%) (Auto) % (0.0-3.0) Basophils (%) (Auto) % (0.0-2.0) Differential Total Cells Counted 100 Neutrophils % (Manual) 90 % (45-75) H Lymphocytes % (Manual) 4 % (20-45) L Monocytes % (Manual) 5 % (1-10) Eosinophils % (Manual) 0 % (0-3) Basophils % (Manual) 0 % (0-2) Band Neutrophils 1 % (0-8) Platelet Estimate Adequate Platelet Morphology Normal Red Blood Cell Morphology Normal Sodium Level 143 MMOL/L (136-145) Potassium Level 4.0 MMOL/L (3.5-5.1) Chloride Level 108 MMOL/L (98-107) H Carbon Dioxide Level 21 MMOL/L (21-32) Anion Gap 14 mmol/L (5-15) Blood Urea Nitrogen 35 mg/dL (7-18) H Creatinine 0.9 MG/DL (0.55-1.30) Estimat Glomerular Filtration Rate > 60 mL/min (>60) Glucose Level 144 MG/DL (74-106) H Calcium Level 8.3 MG/DL (8.5-10.1) L Ferritin 714 NG/ML (8-388) H Total Bilirubin 0.5 MG/DL (0.2-1.0) Aspartate Amino Transf (AST/SGOT) 83 U/L (15-37) H Alanine Aminotransferase (ALT/SGPT) 63 U/L (12-78) Alkaline Phosphatase 99 U/L (46-116) Lactate Dehydrogenase 873 U/L (81-234) H C-Reactive Protein, Quantitative 10.5 mg/dL (0.00-0.90) H Total Protein 6.9 G/DL (6.4-8.2) Albumin 2.3 G/DL (3.4-5.0) L Globulin 4.6 g/dL Albumin/Globulin Ratio 0.5 (1.0-2.7) L Arterial Blood pH 7.265 (7.350-7.450) Arterial Blood Partial Pressure CO2 81.2 mmHg (35.0-45.0) *H Arterial Blood Partial Pressure O2 71.3 mmHg (75.0-100.0) L Arterial Blood HCO3 36.0 mmol/L (22.0-26.0) H Arterial Blood Oxygen Saturation 92.0 % (95-100) L Arterial Blood Base Excess 6.7 (-2-2) H Jag Test Positive Neurologic Exam Objective intubated, sedated, minimal withdraw cc 35 min Impression/Recommendations Problems: (1) Suspected 2019 novel coronavirus infection (2) Multi-infarct dementia (3) Uncontrolled seizures (4) History of CVA (cerebrovascular accident) (5) Acute encephalopathy (6) Aspiration pneumonia (7) Respiratory failure Diagnostic Impression icu level of care cont keppra and dilantifrank Monitor for seizures covid ro started atb wean off sedation when able Ivan Rose MD Sep 08, 2019 19:58
--- NOTE | 2019-09-08 20:04 | Infectious Diseases Prog Note ---
Assessment/Plan Assessment/Plan ASSESSMENT AND PLAN: 1. covid-19 virus infection, pna, sepsis, fevers, leukocytosis, vent, respiratory failure MRSA pneumonia rash - ? vancomycin, ? zosyn - abx held - rash improved ? bowel obstruction, ? ileus steroids - zyvox, cefepime and flagyl - f/u on surveillance sputum culture - mrsa - f/u on labs and chest x-ray, bc/uc - negative, sc - mrsa - supportive care, ivf, vent - d/w RN - surgery f/u - ? leukocytosis secondary to steroids 2. Respiratory failure, on vent. 3. History of hyperlipidemia. 4. History of hypertension. 5. Atherosclerotic heart disease. 6. CAD. 7. COPD. 8. Dementia. 9. Nonverbal at baseline. 10. History of seizures. 11. No known drug allergies. 12. Social history negative. 13. Family history noncontributory. 14. MAR was noted. 15. Case discussed with RN. 16. Continue treatment per primary consultants. Subjective Constitutional: Reports: fever, fatigue, other - on vent, [id number], no pressors HEENT: Reports: congestion Respiratory: Reports: shortness of breath Cardiovascular: Reports: other - no pressors Gastrointestinal/Abdominal: Denies: nausea, vomiting, diarrhea Genitourinary: Reports: other - + verduzco Neurologic: Reports: other - weak, lethargic Psychiatric: Reports: other - NA Skin: Denies: rash Hematologic: Denies: bleeding Musculoskeletal: Reports: other - NA Allergies: Coded Allergies: No Known Allergies (Unverified , 02/29/16) Objective Vital Signs Last 24 Hour Vital Signs Date Time Temp Pulse Resp B/P (MAP) Pulse Ox O2 Delivery O2 Flow Rate FiO2 09/08/19 19:00 82 29 115/61 (79) 96 09/08/19 18:00 28 Mechanical Ventilator 09/08/19 18:00 83 28 115/64 (81) 99 09/08/19 17:00 28 Mechanical Ventilator 09/08/19 17:00 85 28 112/72 (85) 93 09/08/19 16:00 Mechanical Ventilator 09/08/19 16:00 100 09/08/19 16:00 85 09/08/19 16:00 28 Mechanical Ventilator 09/08/19 16:00 97.4 85 30 126/68 (87) 94 09/08/19 15:00 83 28 108/73 (85) 99 09/08/19 15:00 29 Mechanical Ventilator 09/08/19 14:45 82 28 100 09/08/19 14:00 80 28 107/54 (71) 97 09/08/19 14:00 27 Mechanical Ventilator 09/08/19 13:30 80 28 116/70 (85) 97 09/08/19 13:00 97.2 79 28 105/61 (76) 99 09/08/19 13:00 28 Mechanical Ventilator 09/08/19 12:00 100 09/08/19 12:00 79 09/08/19 12:00 28 Mechanical Ventilator 09/08/19 12:00 78 28 112/71 (85) 97 09/08/19 12:00 Mechanical Ventilator 09/08/19 11:00 29 Mechanical Ventilator 09/08/19 11:00 77 28 121/68 (85) 96 09/08/19 10:35 76 28 100 09/08/19 10:00 75 27 141/73 (95) 93 09/08/19 10:00 28 Mechanical Ventilator 09/08/19 09:12 30 Mechanical Ventilator 09/08/19 09:00 80 19 124/69 (87) 93 09/08/19 09:00 27 Mechanical Ventilator 09/08/19 08:32 98.0 81 27 159/77 (104) 99 09/08/19 08:01 76 166/70 09/08/19 08:00 Mechanical Ventilator 09/08/19 08:00 27 Mechanical Ventilator 09/08/19 08:00 82 26 156/75 (102) 93 09/08/19 08:00 100 09/08/19 08:00 83 09/08/19 07:10 77 24 100 09/08/19 07:00 76 25 166/70 (102) 91 09/08/19 07:00 25 Mechanical Ventilator 09/08/19 06:30 94 29 09/08/19 06:00 78 26 164/78 (106) 09/08/19 06:00 26 Mechanical Ventilator 100 09/08/19 05:15 99 30 100 09/08/19 05:00 79 25 166/84 (111) 93 09/08/19 05:00 24 Mechanical Ventilator 100 09/08/19 04:45 28 Mechanical Ventilator 100 09/08/19 04:30 26 Mechanical Ventilator 100 09/08/19 04:15 24 Mechanical Ventilator 100 09/08/19 04:00 77 27 155/67 (96) 98 09/08/19 04:00 77 09/08/19 04:00 24 Mechanical Ventilator 100 09/08/19 04:00 100 09/08/19 04:00 Mechanical Ventilator 09/08/19 03:45 28 Mechanical Ventilator 100 09/08/19 03:15 27 Mechanical Ventilator 100 09/08/19 03:05 95 28 100 09/08/19 03:00 26 Mechanical Ventilator 100 09/08/19 03:00 97.9 80 30 148/79 (102) 97 09/08/19 02:50 28 Mechanical Ventilator 100 09/08/19 02:30 26 Mechanical Ventilator 100 09/08/19 02:00 81 31 148/59 (88) 99 09/08/19 02:00 26 Mechanical Ventilator 100 09/08/19 01:40 28 Mechanical Ventilator 56 09/08/19 01:20 30 Mechanical Ventilator 100 09/08/19 01:02 89 30 100 Mechanical Ventilator 100 88 29 100 09/08/19 01:00 82 31 154/60 (91) 96 09/08/19 01:00 30 Mechanical Ventilator 100 09/08/19 00:40 34 Mechanical Ventilator 100 09/08/19 00:20 32 Mechanical Ventilator 100 09/08/19 00:00 80 31 151/59 (89) 81 09/08/19 00:00 Mechanical Ventilator 09/07/19 23:29 74 29 100 09/07/19 23:00 24 Mechanical Ventilator 100 09/07/19 23:00 28 Mechanical Ventilator 100 09/07/19 23:00 65 26 105/56 (72) 99 09/07/19 22:00 68 25 118/60 (79) 100 09/07/19 22:00 26 Mechanical Ventilator 100 09/07/19 21:00 100 09/07/19 21:00 98.8 25 110/54 (72) 100 09/07/19 21:00 27 Mechanical Ventilator 100 09/07/19 20:40 75 107/54 09/07/19 20:35 84 25 100 09/07/19 20:00 77 09/07/19 20:00 Mechanical Ventilator 09/07/19 20:00 26 Mechanical Ventilator 100 09/07/19 20:00 77 26 109/56 (73) 100 Height (Feet): 5 Height (Inches): 8.00 Weight (Pounds): 167 General Appearance: no acute distress HEENT: normocephalic, atraumatic, anicteric Respiratory/Chest: crackles/rales, rhonchi - bilaterally Cardiovascular: normal rate, regular rhythm, no gallop/murmur, no JVD Abdomen: normal bowel sounds, soft, non tender, no organomegaly, non distended Genitourinary: other - + verduzco Extremities: no cyanosis Skin: no rash Neurologic/Psychiatric: other - lethargic, weak Lymphatic: no neck adenopathy Musculoskeletal: no effusion Objective Procedure: XRAY Chest 1v - 08/23/19 - Indication: Chest pain Technique: One view of the chest Comparison: 1 1/2 hours earlier Findings: Interim placement of a right jugular central venous catheter, tip which projects at the level of the high right atrium. No gross pneumothorax. Interim endotracheal intubation, endotracheal tube tip projecting approximately 6 cm above the darline. Right upper lobe infiltrate is unchanged. Left retrocardiac opacification and likely left pleural effusion are unchanged. Impression: Endotracheal intubation Satisfactory placement right jugular central venous catheter, no radiographically evident complication Other stable findings as described 08/25/19 - Procedure: XRAY Chest 1v EXAM: XR Chest, 1 View CLINICAL HISTORY: INTRA-OP TECHNIQUE: Frontal view of the chest. COMPARISON: No relevant prior studies available. FINDINGS: Redemonstrated endotracheal tube, appropriately positioned, the tip projecting above the darline. Right internal jugular central venous catheter tip is again in the upper right atrium. There is no pneumothorax. Bilateral pulmonary consolidation is again noted. This is most confluent in the left midlung and right upper lobe, similar appearance to prior. 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 Chronic rib deformities as well as skeletal degenerative changes. IMPRESSION: No significant interval change in extensive bilateral airspace infiltrates. Chest x-ray - 08/26/19 - Procedure: XRAY Chest 1v Indication: Shortness of breath Technique: One view of the chest Comparison: none Findings: Bilateral diffuse infiltrates appears slightly more extensive than on the previous study. Stable satisfactory positions of endotracheal tube and right jugular central venous catheter. Gastrostomy is demonstrated. Impression: Over one day, interim slight worsening of bilateral infiltrates Other stable findings as described KUB - 08/29/19 - Findings: There are some mildly dilated small bowel loops in the lower midabdomen. A more dilated gas-filled segment of bowel is seen to the right of midline. Uncertain as to whether this represents a very dilated small bowel loop or an upper limits of normal caliber segment of sigmoid colon. There is a gastrostomy noted. There is a Verduzco catheter noted. Impression: Mildly dilated small bowel loops in the lower midabdomen, nonspecific, could indicate ileus versus early obstructive changes Focal segment of either very dilated small bowel or mildly prominent colon in the right upper pelvis, favor the latter Gastrostomy and Verduzco catheter incidentally noted Chest x-ray 08/28/19 - Findings: Heart size is stable. Atherosclerotic calcifications again noted in the aorta. Endotracheal tube stable and satisfactory position. Right transjugular central line has its tip in the region of the high right atrium. A gastrostomy tube is noted. There is interval worsening of aeration with increasing interstitial and patchy bilateral airspace disease. Small layering left pleural effusion not excluded. No evidence of pneumothorax. Again is evidence of prior cardiac surgery with median sternotomy and prosthetic cardiac valve. Osseous structures are stable. IMPRESSION: Interval worsening of aeration with increasing interstitial and patchy bilateral airspace disease. Findings may be on the basis of worsening CHF/pulmonary edema although multifocal pneumonia must also be considered. Endotracheal tube injection is a central line remain in place. 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 Chest -x-ray - 08/31/19 - IMPRESSION: 1. No significant change in bilateral multilobar peripheral opacities and consolidation. 2. Possible small layering left pleural effusion. 3. Pulmonary vascular congestion. Chest x-ray - 09/04/19 - Procedure: XRAY Chest 1v Indication: Dyspnea Technique: One view of the chest Comparison: 09/03/2019 Findings: Bilateral extensive dense consolidation appears slightly worse than on the previous study. Stable satisfactory position of endotracheal tube and right jugular central venous catheter. The heart size is borderline enlarged. Impression: Worsening bilateral infiltrates, over one day Chest x-ray - 09/06/19 - Procedure: XRAY Chest 1v Indication: Dyspnea Technique: One view of the chest Comparison: 09/04/2019 Findings: Extensive bilateral diffuse interstitial and airspace disease is again demonstrated, with consolidation appearing slightly less dense than on the prior exam. Stable satisfactory positions of endotracheal tube, right jugular central venous catheter. The heart remains enlarged. Again demonstrated is evidence of prior median sternotomy. Impression: Bilateral extensive diffuse interstitial and airspace infiltrates, appearing slightly improved since prior exam of 09/04/2019 Chest x-ray - 09/08/19 - TECHNIQUE: Frontal view of the chest. COMPARISON: 09/06/19 FINDINGS: Lungs: There is been no significant change in moderate to severe diffuse bilateral alveolar infiltrates since the prior study. Pleural space: Unremarkable. No pneumothorax. Heart: Mild cardiomegaly. Mediastinum: Unremarkable. Bones/joints: Unremarkable. Tubes, lines and devices: There is an endotracheal tube and right IJ central venous catheter in good position IMPRESSION: There is been no significant change in moderate to severe diffuse bilateral alveolar infiltrates since the prior study. Microbiology Date/Time Source Procedure Growth Status 08/27/19 11:45 Blood Blood Culture - Final NO GROWTH AFTER 5 DAYS Complete 09/04/19 23:45 Sputum Gram Stain - Final Complete 09/04/19 23:45 Sputum Culture - Final Staphylococcus Aureus - Mrsa Complete 08/30/19 04:30 Urine,Catheterized Urine Culture - Final NO GROWTH AFTER 48 HOURS Complete 08/19/19 18:30 Rectum - Final NO CARBAPENEM-RESISTANT ENTEROBACTERI... Complete Laboratory Tests Test 09/08/19 03:50 09/08/19 08:37 White Blood Count 15.1 K/UL (4.8-10.8) H Red Blood Count 3.94 M/UL (4.70-6.10) L Hemoglobin 12.4 G/DL (14.2-18.0) L Hematocrit 34.8 % (42.0-52.0) L Mean Corpuscular Volume 88 FL (80-99) Mean Corpuscular Hemoglobin 31.4 PG (27.0-31.0) H Mean Corpuscular Hemoglobin Concent 35.6 G/DL (32.0-36.0) Red Cell Distribution Width 10.7 % (11.6-14.8) L Platelet Count 268 K/UL (150-450) # Mean Platelet Volume 6.6 FL (6.5-10.1) Neutrophils (%) (Auto) % (45.0-75.0) Lymphocytes (%) (Auto) % (20.0-45.0) Monocytes (%) (Auto) % (1.0-10.0) Eosinophils (%) (Auto) % (0.0-3.0) Basophils (%) (Auto) % (0.0-2.0) Differential Total Cells Counted 100 Neutrophils % (Manual) 90 % (45-75) H Lymphocytes % (Manual) 4 % (20-45) L Monocytes % (Manual) 5 % (1-10) Eosinophils % (Manual) 0 % (0-3) Basophils % (Manual) 0 % (0-2) Band Neutrophils 1 % (0-8) Platelet Estimate Adequate Platelet Morphology Normal Red Blood Cell Morphology Normal Sodium Level 143 MMOL/L (136-145) Potassium Level 4.0 MMOL/L (3.5-5.1) Chloride Level 108 MMOL/L (98-107) H Carbon Dioxide Level 21 MMOL/L (21-32) Anion Gap 14 mmol/L (5-15) Blood Urea Nitrogen 35 mg/dL (7-18) H Creatinine 0.9 MG/DL (0.55-1.30) Estimat Glomerular Filtration Rate > 60 mL/min (>60) Glucose Level 144 MG/DL (74-106) H Calcium Level 8.3 MG/DL (8.5-10.1) L Ferritin 714 NG/ML (8-388) H Total Bilirubin 0.5 MG/DL (0.2-1.0) Aspartate Amino Transf (AST/SGOT) 83 U/L (15-37) H Alanine Aminotransferase (ALT/SGPT) 63 U/L (12-78) Alkaline Phosphatase 99 U/L (46-116) Lactate Dehydrogenase 873 U/L (81-234) H C-Reactive Protein, Quantitative 10.5 mg/dL (0.00-0.90) H Total Protein 6.9 G/DL (6.4-8.2) Albumin 2.3 G/DL (3.4-5.0) L Globulin 4.6 g/dL Albumin/Globulin Ratio 0.5 (1.0-2.7) L Arterial Blood pH 7.265 (7.350-7.450) Arterial Blood Partial Pressure CO2 81.2 mmHg (35.0-45.0) *H Arterial Blood Partial Pressure O2 71.3 mmHg (75.0-100.0) L Arterial Blood HCO3 36.0 mmol/L (22.0-26.0) H Arterial Blood Oxygen Saturation 92.0 % (95-100) L Arterial Blood Base Excess 6.7 (-2-2) H Jag Test Positive Current Medications Medications (Trade) Dose Ordered Sig/Vanessa Route PRN Reason Start Time Stop Time Status Last Admin Dose Admin Acetaminophen (Tylenol) 650 mg Q4H PRN RECTAL Temp >100.5 09/01/19 01:30 10/01/19 01:29 09/03/19 05:35 Albuterol Sulfate (Proventil MDI) 2 puff Q6HRT INH 08/22/19 13:00 11/20/19 12:59 09/07/19 19:06 Apixaban (Eliquis) 2.5 mg BID GT 08/26/19 18:00 11/18/19 17:59 09/08/19 16:59 Chlorhexidine Gluconate (Antonella-Hex 2%) 1 applic DAILY@2000 TOPIC 08/21/19 20:00 11/19/19 19:59 09/07/19 20:39 Fentanyl Citrate 2500 mcg/Sodium Chloride 250 ml @ 0 mls/hr Q24H IV 09/04/19 20:30 09/11/19 20:29 09/08/19 09:12 Hydralazine HCl (Apresoline) 10 mg Q2H PRN IV Systolic >180 08/26/19 15:45 11/24/19 15:44 Ipratropium [place] (Atrovent Inh) 1 puffs Q6HRT INH 08/22/19 13:00 09/21/19 12:59 09/07/19 19:06 Levetiracetam (Keppra) 1,500 mg Q12HR GT 08/20/19 21:00 09/19/19 20:59 09/08/19 08:02 Linezolid 300 ml @ 300 mls/hr EVERY 12 HOURS IVPB 09/04/19 21:00 09/12/19 20:59 09/08/19 08:03 Meropenem 1 gm/ Sodium Chloride 55 ml @ 110 mls/hr Q8HR IVPB 09/04/19 22:00 09/10/19 21:59 09/08/19 13:30 Methylprednisolone Sodium Succinate (Solu-MEDROL) 10 mg EVERY 12 HOURS IVP 09/08/19 21:00 11/23/19 20:59 Metoprolol Tartrate (Lopressor) 100 mg EVERY 12 HOURS GT 09/02/19 21:00 12/01/19 20:59 09/08/19 08:01 Midazolam HCl (Versed 2mg/2ml vial) 1 mg Q2H PRN IVP agitation 08/26/19 12:45 11/24/19 12:44 08/30/19 13:30 Pantoprazole (Protonix) 40 mg DAILY IVP 09/03/19 09:00 10/03/19 08:59 09/08/19 08:01 Phenytoin (Dilantin) 250 mg DAILY GT 08/21/19 09:00 09/20/19 08:59 Future hold 09/08/19 08:02 Polymyxin B Sulfate [id number] units/Dextrose 500 ml @ 500 mls/hr EVERY 12 HOURS IVPB 09/04/19 22:00 09/11/19 21:59 09/08/19 09:12 Tamsulosin HCl (Flomax) 0.4 mg BEDTIME ORAL 08/20/19 21:00 09/19/19 20:59 09/07/19 20:40 Gwen Velásquez MD Sep 08, 2019 20:04
[2019-09-08] MEDS: Dyna-Hex 2% Top Sol 2oz TOPIC SCH (20:29)
[2019-09-08] MEDS: Tamsulosin 0.4mg cap ORAL SCH (20:30)
--- NOTE | 2019-09-08 22:28 | Surgery Progress Note ---
Surgery Progress Note Subjective Additional Comments worsening fio2 100% peep 10 TF at 50 Objective Last 24 Hour Vital Signs Date Time Temp Pulse Resp B/P (MAP) Pulse Ox O2 Delivery O2 Flow Rate FiO2 09/08/19 21:00 26 Mechanical Ventilator 100 09/08/19 21:00 98.3 84 28 89 09/08/19 20:40 26 Mechanical Ventilator 100 09/08/19 20:33 81 30 100 09/08/19 20:31 28 Mechanical Ventilator 100 09/08/19 20:30 85 126/65 09/08/19 20:00 85 09/08/19 20:00 100 09/08/19 20:00 28 Mechanical Ventilator 100 09/08/19 20:00 82 28 126/65 (85) 94 09/08/19 19:02 85 28 93 Mechanical Ventilator 100 87 29 100 09/08/19 19:00 82 29 115/61 (79) 96 09/08/19 19:00 28 Mechanical Ventilator 100 09/08/19 18:00 28 Mechanical Ventilator 09/08/19 18:00 83 28 115/64 (81) 99 09/08/19 17:00 28 Mechanical Ventilator 09/08/19 17:00 85 28 112/72 (85) 93 09/08/19 16:00 Mechanical Ventilator 09/08/19 16:00 100 09/08/19 16:00 85 09/08/19 16:00 28 Mechanical Ventilator 09/08/19 16:00 97.4 85 30 126/68 (87) 94 09/08/19 15:00 83 28 108/73 (85) 99 09/08/19 15:00 29 Mechanical Ventilator 09/08/19 14:45 82 28 100 09/08/19 14:00 80 28 107/54 (71) 97 09/08/19 14:00 27 Mechanical Ventilator 09/08/19 13:30 80 28 116/70 (85) 97 09/08/19 13:00 97.2 79 28 105/61 (76) 99 09/08/19 13:00 28 Mechanical Ventilator 09/08/19 12:00 100 09/08/19 12:00 79 09/08/19 12:00 28 Mechanical Ventilator 09/08/19 12:00 78 28 112/71 (85) 97 09/08/19 12:00 Mechanical Ventilator 09/08/19 11:00 29 Mechanical Ventilator 09/08/19 11:00 77 28 121/68 (85) 96 09/08/19 10:35 76 28 100 09/08/19 10:00 75 27 141/73 (95) 93 09/08/19 10:00 28 Mechanical Ventilator 09/08/19 09:12 30 Mechanical Ventilator 09/08/19 09:00 80 19 124/69 (87) 93 09/08/19 09:00 27 Mechanical Ventilator 09/08/19 08:32 98.0 81 27 159/77 (104) 99 09/08/19 08:01 76 166/70 09/08/19 08:00 Mechanical Ventilator 09/08/19 08:00 27 Mechanical Ventilator 09/08/19 08:00 82 26 156/75 (102) 93 09/08/19 08:00 100 09/08/19 08:00 83 09/08/19 07:10 77 24 100 09/08/19 07:00 76 25 166/70 (102) 91 09/08/19 07:00 25 Mechanical Ventilator 09/08/19 06:30 94 29 09/08/19 06:00 78 26 164/78 (106) 09/08/19 06:00 26 Mechanical Ventilator 100 09/08/19 05:15 99 30 100 09/08/19 05:00 79 25 166/84 (111) 93 09/08/19 05:00 24 Mechanical Ventilator 100 09/08/19 04:45 28 Mechanical Ventilator 100 09/08/19 04:30 26 Mechanical Ventilator 100 09/08/19 04:15 24 Mechanical Ventilator 100 09/08/19 04:00 77 27 155/67 (96) 98 09/08/19 04:00 77 09/08/19 04:00 24 Mechanical Ventilator 100 09/08/19 04:00 100 09/08/19 04:00 Mechanical Ventilator 09/08/19 03:45 28 Mechanical Ventilator 100 09/08/19 03:15 27 Mechanical Ventilator 100 09/08/19 03:05 95 28 100 09/08/19 03:00 26 Mechanical Ventilator 100 09/08/19 03:00 97.9 80 30 148/79 (102) 97 09/08/19 02:50 28 Mechanical Ventilator 100 09/08/19 02:30 26 Mechanical Ventilator 100 09/08/19 02:00 81 31 148/59 (88) 99 09/08/19 02:00 26 Mechanical Ventilator 100 09/08/19 01:40 28 Mechanical Ventilator 56 09/08/19 01:20 30 Mechanical Ventilator 100 09/08/19 01:02 89 30 100 Mechanical Ventilator 100 88 29 100 09/08/19 01:00 82 31 154/60 (91) 96 09/08/19 01:00 30 Mechanical Ventilator 100 09/08/19 00:40 34 Mechanical Ventilator 100 09/08/19 00:20 32 Mechanical Ventilator 100 09/08/19 00:00 80 31 151/59 (89) 81 09/08/19 00:00 Mechanical Ventilator 09/07/19 23:29 74 29 100 09/07/19 23:00 24 Mechanical Ventilator 100 09/07/19 23:00 28 Mechanical Ventilator 100 09/07/19 23:00 65 26 105/56 (72) 99 I&O Intake and Output 09/07/19 09/08/19 19:00 07:00 Intake Total 1590 ml 1612 ml Output Total 395 ml 450 ml Balance 1195 ml 1162 ml Free Water 140 ml IV Total 960 ml 872 ml Tube Feeding 600 ml 600 ml Other 30 ml Output Urine Total 395 ml 450 ml # Bowel Movements 4 2 Dressing: other Wound: other Drains: other Cardiovascular: RSR Respiratory: decreased breath sounds Abdomen: soft, present bowel sounds Extremities: no cyanosis Laboratory Tests Test 09/08/19 03:50 09/08/19 08:37 White Blood Count 15.1 K/UL (4.8-10.8) H Red Blood Count 3.94 M/UL (4.70-6.10) L Hemoglobin 12.4 G/DL (14.2-18.0) L Hematocrit 34.8 % (42.0-52.0) L Mean Corpuscular Volume 88 FL (80-99) Mean Corpuscular Hemoglobin 31.4 PG (27.0-31.0) H Mean Corpuscular Hemoglobin Concent 35.6 G/DL (32.0-36.0) Red Cell Distribution Width 10.7 % (11.6-14.8) L Platelet Count 268 K/UL (150-450) # Mean Platelet Volume 6.6 FL (6.5-10.1) Neutrophils (%) (Auto) % (45.0-75.0) Lymphocytes (%) (Auto) % (20.0-45.0) Monocytes (%) (Auto) % (1.0-10.0) Eosinophils (%) (Auto) % (0.0-3.0) Basophils (%) (Auto) % (0.0-2.0) Differential Total Cells Counted 100 Neutrophils % (Manual) 90 % (45-75) H Lymphocytes % (Manual) 4 % (20-45) L Monocytes % (Manual) 5 % (1-10) Eosinophils % (Manual) 0 % (0-3) Basophils % (Manual) 0 % (0-2) Band Neutrophils 1 % (0-8) Platelet Estimate Adequate Platelet Morphology Normal Red Blood Cell Morphology Normal Sodium Level 143 MMOL/L (136-145) Potassium Level 4.0 MMOL/L (3.5-5.1) Chloride Level 108 MMOL/L (98-107) H Carbon Dioxide Level 21 MMOL/L (21-32) Anion Gap 14 mmol/L (5-15) Blood Urea Nitrogen 35 mg/dL (7-18) H Creatinine 0.9 MG/DL (0.55-1.30) Estimat Glomerular Filtration Rate > 60 mL/min (>60) Glucose Level 144 MG/DL (74-106) H Calcium Level 8.3 MG/DL (8.5-10.1) L Ferritin 714 NG/ML (8-388) H Total Bilirubin 0.5 MG/DL (0.2-1.0) Aspartate Amino Transf (AST/SGOT) 83 U/L (15-37) H Alanine Aminotransferase (ALT/SGPT) 63 U/L (12-78) Alkaline Phosphatase 99 U/L (46-116) Lactate Dehydrogenase 873 U/L (81-234) H C-Reactive Protein, Quantitative 10.5 mg/dL (0.00-0.90) H Total Protein 6.9 G/DL (6.4-8.2) Albumin 2.3 G/DL (3.4-5.0) L Globulin 4.6 g/dL Albumin/Globulin Ratio 0.5 (1.0-2.7) L Arterial Blood pH 7.265 (7.350-7.450) Arterial Blood Partial Pressure CO2 81.2 mmHg (35.0-45.0) *H Arterial Blood Partial Pressure O2 71.3 mmHg (75.0-100.0) L Arterial Blood HCO3 36.0 mmol/L (22.0-26.0) H Arterial Blood Oxygen Saturation 92.0 % (95-100) L Arterial Blood Base Excess 6.7 (-2-2) H Jag Test Positive Plan Problems: (1) Decubitus skin ulcer Assessment & Plan: Patient presented on admission with Sacral DTPI. Base of wound is purple with maroon borders. Unstageable pressure injury Plantar L heel . Base of wound is necrotic with marginal erythema along borders. Non-blanching erythema R heel. Sacral DTPI now evolving since admission. Several opening within base of wound. No exudate noted. Open areas are moist and jason. Surrounding base of wound is purple with erythema along borders. Unstageable Pressure injury Plantar L heel. Base of wound is necrotic. Edges adherent to base of wound. Tx.Plan: Cleanse Sacral wound with Saline. Apply Therahoney. Apply Moisture Barrier Paste periwound. Cover with Optifoam drsg. Change every 3 days and prn. Apply Betadine to Plantar L heel. Cover with Optifoam drsg. Change every 3 days and prn. Apply Cavilon Skin Barrier R heel. Cover with Optifoam drsg. Change every 7 days and prn. Reposition at least every 2hours or as tolerated Off-load heels with pillow. Nutritional optimization will follow with recs air mattress once off isolation DAILY ESTIMATED NEEDS: Needs based on Critical care, Wounds/ 53kg abw 22-28 kcals/kg 8885-7534 total kcals 1.25-2 g protein/kg 66-106 g total protein 25-30 mL/kg 9243-7536 total fluid mLs NUTRITION DIAGNOSIS: * Swallowing difficulty R/T dysphagia as evidenced by PEG dep, s/p intubation, on GT feeding. * Increased kcal/prot needs R/T wound healing as evidenced by pt admitted w/ evolving DTPI sacral wound and unstageable lt heel wound. CURRENT TF:Glucerna 1.2 @50ml/hr x22 hrs ENTERAL NUTRITION RECOMMENDATIONS: Glucerna 1.2 @ 50ml/hr x 22 hrs (hold 1 hr before and after Dilantin QD) to provide 1100ml, 1320kcal, 66g prot, 886ml free water * Maintain Glucerna 1.2 for carb control, BGs elevated. * Hold 1 hr before and after Dilantin med * HOB over 30 degrees/ without IVF, H20 flush of 150ml q 6 hrs FOR 24 HRS TF RUN WITHOUT DILANTIN (Dilantin currently held) : okay to keep the same TF rate of Glucerna 1.2 @ 50ml/hr x 24 hrs to provide 1200ml, 1440kcal, 72g prot 966ml free water -> will still meet 100% est kcal/prot needs ADDITIONAL RECOMMENDATIONS: * Per SNF record, ht is 60", wt is 149lbs (08/14/19) Rec calibrated bedscale wt * Rec NISS w/ TF: BGs elevated, now on Solumedrol * Wound healing: add Vit C 500mg QD + Giancarlo 1pkt BID via PEG * Monitor lytes, replete as needed . (2) Multi-infarct dementia (3) Uncontrolled seizures (4) History of CVA (cerebrovascular accident) (5) Acute encephalopathy (6) Aspiration pneumonia Assessment & Plan: Interval worsening of aeration with increasing interstitial and patchy bilateral airspace disease. Findings may be on the basis of worsening CHF/pulmonary edema although multifocal pneumonia must also be considered. Endotracheal tube injection is a central line remain in place. 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 worsening vent worse prognosis guarded (7) Respiratory failure (8) Suspected 2019 novel coronavirus infection Assessment & Plan: testing ? (9) Abdominal distension Assessment & Plan: noted +BM unlikely obstruction will monitor repeat KUB There is been improvement in dilatation of multiple loops of small and large bowel since the prior study consistent with resolving ileus. No obstructive pattern is identified. Sundeep Benavidez Sep 08, 2019 22:28
--- NOTE | 2019-09-08 22:30 | NUR ---
Nurse Nurse: Increased Fentanyl per protocol d/t pt fighting the vent. Reapplied pulse ox for O2 sat.
[2019-09-09] VITALS (26 sets, daily range): BP systolic 0–191; BP diastolic 0–109
[2019-09-09] MEDS: Albuterol 90mcg Inhaler 8gm INH SCH ×4 (00:05→19:27)
[2019-09-09] MEDS: Ipratropium Bromide Inhaler INH SCH ×4 (00:05→19:27)
--- NOTE | 2019-09-09 00:30 | NUR ---
Nurse Note: Turned Fentanyl off; pinpoint pupils. Stat ABG ordered; RT notified. Vent setting AC 22, TV 450, FiO2 100% and PEEP 10.
--- NOTE | 2019-09-09 01:40 | NUR ---
Nurse Note: O2 saturation at 93%. Fentanyl resumes to be on standby mode. Pt resting, nonverbal, no signs of distress. RT IJ triple lumen patent. Gtube patent and running Glucerna1.2 at 50cc/hr. Swartz cath patent and urine output noted. SZ precautions in place. Head of bed greater than 30 degrees. All safety measures met; will continue to monitor.
--- NOTE | 2019-09-09 03:50 | NUR ---
Nurse Note: Pt remains in stable condition. RT pt side; suctioned pt, no changes to vent. Pt remains afebrile. All safety measures met; will continue to monitor.
[2019-09-09 05:38] LABS: HEMATOCRIT 32.2 % (42.0-52.0); HEMOGLOBIN 10.6 G/DL (14.2-18.0); MEAN CORPUSCULAR VOLUME 94 FL (80-99); PLATELET COUNT 67 K/UL (150-450); RED BLOOD COUNT 3.42 M/UL (4.70-6.10); RED CELL DISTRIBUTION WIDTH 14.5 % (11.6-14.8); WHITE BLOOD COUNT 14.3 K/UL (4.8-10.8)
[2019-09-09 06:05] LABS: ALANINE AMINOTRANSFERASE 59 U/L (12-78); ALBUMIN 1.3 G/DL (3.4-5.0); ALBUMIN/GLOBULIN RATIO 0.3 (1.0-2.7); ALKALINE PHOSPHATASE 243 U/L (46-116); ANION GAP 4 mmol/L (5-15); ASPARTATE AMINO TRANSFERASE 76 U/L (15-37); BILIRUBIN,TOTAL 0.3 MG/DL (0.2-1.0); BLOOD UREA NITROGEN 41 mg/dL (7-18); CALCIUM 7.8 MG/DL (8.5-10.1); CARBON DIOXIDE 36 MMOL/L (21-32); CHLORIDE 96 MMOL/L (98-107); CREATININE 0.8 MG/DL (0.55-1.30); POTASSIUM 5.5 MMOL/L (3.5-5.1); SODIUM 135 MMOL/L (136-145)
--- NOTE | 2019-09-09 06:40 | NUR ---
NURSE NOTES: Pt resting, nonverbal, no signs of distress. Pupils equal and reactive to light but sluggish. Pt intubated AC 22, TV 450, FiO2 100% and PEEP 10; satting at 97% O2. RT IJ triple lumen patent, dressing changed. Fentanyl drip held d/t O2 desatting; O2 greater than 95%. Gtube noted and running Glucernia at 50cc/hr. SZ precautions in place. Pt kept clean; turned and suctioned as needed. Head of bed greater than 30 degrees. All safety measures met; will continue to monitor.
--- NOTE | 2019-09-09 07:00 | NUR ---
NURSE NOTES: Received report from LORENE Lopez. Observed patient in bed, appears to be sleeping. Patient is orally intubated with vent settings AC 22, TV 450, FiO2 100% and PEEP 10. Patient is saturating 97% at this time. Right IJ triple lumen central line catheter in place, patent and asymptomatic. Patient has GT, glucerna 1.2 infusing at 50ml/hr, HOB elevated. Safety precautions in place, bed locked, alarmed, and in lowest position, side rails up x3. Patient remains in airborne isolation precautions. Will continue assessment and will continue to monitor patient.
--- NOTE | 2019-09-09 07:00 | NUR ---
Nurse Note: Endorsed care to LORENE Hernandez for continuity of care. Dr. Singleton aware of PLT count and ordered stat order for blood draw; RN aware.
--- NOTE | 2019-09-09 07:13 | Hematology/Onc Progress Note ---
Assessment/Plan Assessment/Plan Assessmenta and Recs # Thrombocytopenia -- initially had Elevated didmer in the setting of hypoxemic acute respiratory failure 2/2 COVID, may be dic related --> likely is elevated due to sepsis, inflammatory state, cytokine release storm --> recommend to get duplex, however, will wait until patient negative --> have dw US tech, can wait --> hepatitis panel is pending --> plt trend 250-->67 --> off heparin sq # Lymphopenia due to Septic shock from Covid19 positive --> likely is a poor prognositic indicator --> trend as needed --> is on abx as needed # Hypecoagulable disorder with afib paroxysmal --> ok for eliquis to continue --> as per cards # Transaminitis - likely 2/2 to above, downtrending/stable --> ast and alt is noted # Fevers with MRSA pneumonia. covid 19 --> remains on abx as needed --> as per id care # Hyperkalemia --> kayxelate prn # Hypokalemia - resolved # Abdominal distension - improved, Ileus --> KUB reviewed # History of Seizure disorder: --> cont Dilantin and Keppra # Sacral Decubitus Ulcer --> per surg # Dvt ppx eliquis po The timing of this note does not necessarily reflect the time of the patient was seen. Greatly appreciate consultation. Subjective Allergies: Coded Allergies: No Known Allergies (Unverified , 02/29/16) Subjective 09/07 no bleeding, labs noted, no bleeding, meds reviewed, no hemolysis is seen 09/08 nonverbal, with rapid plt count, on pressor, gtube, vent, verduzco+, cbc recheck Objective Objective Current Medications Medications (Trade) Dose Ordered Sig/Vanessa Route PRN Reason Start Time Stop Time Status Last Admin Dose Admin Acetaminophen (Tylenol) 650 mg Q4H PRN RECTAL Temp >100.5 09/01/19 01:30 10/01/19 01:29 09/03/19 05:35 Albuterol Sulfate (Proventil MDI) 2 puff Q6HRT INH 08/22/19 13:00 11/20/19 12:59 09/09/19 00:05 Apixaban (Eliquis) 2.5 mg BID GT 08/26/19 18:00 11/18/19 17:59 09/08/19 16:59 Cefepime HCl 2 gm/ Dextrose 100 ml @ 200 mls/hr Q12HR IVPB 09/08/19 21:00 09/15/19 20:59 09/08/19 21:57 Chlorhexidine Gluconate (Antonella-Hex 2%) 1 applic DAILY@2000 TOPIC 08/21/19 20:00 11/19/19 19:59 09/08/19 20:29 Fentanyl Citrate 2500 mcg/Sodium Chloride 250 ml @ 0 mls/hr Q24H IV 09/04/19 20:30 09/11/19 20:29 09/08/19 23:58 Hydralazine HCl (Apresoline) 10 mg Q2H PRN IV Systolic >180 08/26/19 15:45 11/24/19 15:44 Ipratropium [place] (Atrovent Inh) 1 puffs Q6HRT INH 08/22/19 13:00 09/21/19 12:59 09/09/19 00:05 Levetiracetam (Keppra) 1,500 mg Q12HR GT 08/20/19 21:00 09/19/19 20:59 09/08/19 20:30 Linezolid 300 ml @ 300 mls/hr EVERY 12 HOURS IVPB 09/04/19 21:00 09/12/19 20:59 09/08/19 20:31 Methylprednisolone Sodium Succinate (Solu-MEDROL) 10 mg EVERY 12 HOURS IVP 09/08/19 21:00 11/23/19 20:59 09/08/19 20:29 Metoprolol Tartrate (Lopressor) 100 mg EVERY 12 HOURS GT 09/02/19 21:00 12/01/19 20:59 09/08/19 20:30 Metronidazole 100 ml @ 100 mls/hr Q8HR IVPB 09/08/19 22:00 09/15/19 21:59 09/09/19 05:09 Midazolam HCl (Versed 2mg/2ml vial) 1 mg Q2H PRN IVP agitation 08/26/19 12:45 11/24/19 12:44 08/30/19 13:30 Pantoprazole (Protonix) 40 mg DAILY IVP 09/03/19 09:00 10/03/19 08:59 09/08/19 08:01 Phenytoin (Dilantin) 250 mg DAILY GT 08/21/19 09:00 09/20/19 08:59 Future hold 09/08/19 08:02 Tamsulosin HCl (Flomax) 0.4 mg BEDTIME ORAL 08/20/19 21:00 09/19/19 20:59 09/08/19 20:30 Last 24 Hour Vital Signs Date Time Temp Pulse Resp B/P (MAP) Pulse Ox O2 Delivery O2 Flow Rate FiO2 09/09/19 07:00 89 30 118/65 (82) 98 09/09/19 06:30 89 30 09/09/19 06:00 89 25 123/73 (90) 97 09/09/19 05:00 88 28 116/67 (83) 98 09/09/19 04:44 89 31 100 09/09/19 04:00 91 09/09/19 04:00 100 09/09/19 04:00 Mechanical Ventilator 09/09/19 04:00 98.3 91 31 115/81 (92) 96 09/09/19 03:30 90 38 112/66 (81) 97 09/09/19 03:00 90 32 115/69 (84) 97 09/09/19 02:56 85 29 100 09/09/19 02:00 87 34 122/77 (92) 97 09/09/19 01:15 98.3 09/09/19 01:00 98.7 84 36 119/71 (87) 92 09/09/19 00:05 82 33 90 Mechanical Ventilator 100 84 34 100 09/09/19 00:00 Mechanical Ventilator 09/09/19 00:00 82 35 131/74 (93) 87 09/08/19 23:58 30 Mechanical Ventilator 100 09/08/19 23:00 80 28 122/68 (86) 90 09/08/19 22:36 88 31 100 09/08/19 22:00 82 28 125/76 (92) 92 09/08/19 22:00 28 Mechanical Ventilator 100 09/08/19 21:00 26 Mechanical Ventilator 100 09/08/19 21:00 98.3 84 28 89 09/08/19 20:40 26 Mechanical Ventilator 100 09/08/19 20:33 81 30 100 09/08/19 20:31 28 Mechanical Ventilator 100 09/08/19 20:30 85 126/65 09/08/19 20:00 85 09/08/19 20:00 100 09/08/19 20:00 Mechanical Ventilator 09/08/19 20:00 28 Mechanical Ventilator 100 09/08/19 20:00 82 28 126/65 (85) 94 09/08/19 19:02 85 28 93 Mechanical Ventilator 100 87 29 100 09/08/19 19:00 82 29 115/61 (79) 96 09/08/19 19:00 28 Mechanical Ventilator 100 09/08/19 18:00 28 Mechanical Ventilator 09/08/19 18:00 83 28 115/64 (81) 99 09/08/19 17:00 28 Mechanical Ventilator 09/08/19 17:00 85 28 112/72 (85) 93 09/08/19 16:00 Mechanical Ventilator 09/08/19 16:00 100 09/08/19 16:00 85 09/08/19 16:00 28 Mechanical Ventilator 09/08/19 16:00 97.4 85 30 126/68 (87) 94 09/08/19 15:00 83 28 108/73 (85) 99 09/08/19 15:00 29 Mechanical Ventilator 09/08/19 14:45 82 28 100 09/08/19 14:00 80 28 107/54 (71) 97 09/08/19 14:00 27 Mechanical Ventilator 09/08/19 13:30 80 28 116/70 (85) 97 09/08/19 13:00 97.2 79 28 105/61 (76) 99 09/08/19 13:00 28 Mechanical Ventilator 09/08/19 12:00 100 09/08/19 12:00 79 09/08/19 12:00 28 Mechanical Ventilator 09/08/19 12:00 78 28 112/71 (85) 97 09/08/19 12:00 Mechanical Ventilator 09/08/19 11:00 29 Mechanical Ventilator 09/08/19 11:00 77 28 121/68 (85) 96 09/08/19 10:35 76 28 100 09/08/19 10:00 75 27 141/73 (95) 93 09/08/19 10:00 28 Mechanical Ventilator 09/08/19 09:12 30 Mechanical Ventilator 09/08/19 09:00 80 19 124/69 (87) 93 09/08/19 09:00 27 Mechanical Ventilator 09/08/19 08:32 98.0 81 27 159/77 (104) 99 09/08/19 08:01 76 166/70 09/08/19 08:00 Mechanical Ventilator 09/08/19 08:00 27 Mechanical Ventilator 09/08/19 08:00 82 26 156/75 (102) 93 09/08/19 08:00 100 09/08/19 08:00 83 09/08/19 07:10 77 24 100 09/08/19 07:00 76 25 166/70 (102) 91 09/08/19 07:00 25 Mechanical Ventilator 09/08/19 06:30 94 29 09/08/19 06:00 78 26 164/78 (106) 09/08/19 06:00 26 Mechanical Ventilator 100 09/08/19 05:15 99 30 100 09/08/19 05:00 79 25 166/84 (111) 93 09/08/19 05:00 24 Mechanical Ventilator 100 09/08/19 04:45 28 Mechanical Ventilator 100 09/08/19 04:30 26 Mechanical Ventilator 100 09/08/19 04:15 24 Mechanical Ventilator 100 09/08/19 04:00 77 27 155/67 (96) 98 09/08/19 04:00 77 09/08/19 04:00 24 Mechanical Ventilator 100 09/08/19 04:00 100 09/08/19 04:00 Mechanical Ventilator 09/08/19 03:45 28 Mechanical Ventilator 100 09/08/19 03:15 27 Mechanical Ventilator 100 09/08/19 03:05 95 28 100 09/08/19 03:00 26 Mechanical Ventilator 100 09/08/19 03:00 97.9 80 30 148/79 (102) 97 09/08/19 02:50 28 Mechanical Ventilator 100 09/08/19 02:30 26 Mechanical Ventilator 100 09/08/19 02:00 81 31 148/59 (88) 99 09/08/19 02:00 26 Mechanical Ventilator 100 09/08/19 01:40 28 Mechanical Ventilator 56 09/08/19 01:20 30 Mechanical Ventilator 100 09/08/19 01:02 89 30 100 Mechanical Ventilator 100 88 29 100 09/08/19 01:00 82 31 154/60 (91) 96 09/08/19 01:00 30 Mechanical Ventilator 100 09/08/19 00:40 34 Mechanical Ventilator 100 09/08/19 00:20 32 Mechanical Ventilator 100 09/08/19 00:00 80 31 151/59 (89) 81 09/08/19 00:00 Mechanical Ventilator 09/07/19 23:29 74 29 100 09/07/19 23:00 24 Mechanical Ventilator 100 09/07/19 23:00 28 Mechanical Ventilator 100 09/07/19 23:00 65 26 105/56 (72) 99 09/07/19 22:00 68 25 118/60 (79) 100 09/07/19 22:00 26 Mechanical Ventilator 100 09/07/19 21:00 100 09/07/19 21:00 98.8 25 110/54 (72) 100 09/07/19 21:00 27 Mechanical Ventilator 100 09/07/19 20:40 75 107/54 09/07/19 20:35 84 25 100 09/07/19 20:00 77 09/07/19 20:00 Mechanical Ventilator 09/07/19 20:00 26 Mechanical Ventilator 100 09/07/19 20:00 77 26 109/56 (73) 100 09/07/19 19:01 80 24 100 Mechanical Ventilator 100 82 26 100 09/07/19 19:00 27 Mechanical Ventilator 100 09/07/19 19:00 80 27 108/52 (70) 100 09/07/19 18:30 82 27 108/52 (70) 100 09/07/19 18:00 Mechanical Ventilator 09/07/19 18:00 99.9 85 28 105/51 (69) 100 09/07/19 17:00 88 24 111/61 (78) 100 09/07/19 17:00 Mechanical Ventilator 09/07/19 16:30 88 24 113/56 (75) 100 09/07/19 16:00 85 24 108/55 (72) 100 09/07/19 16:00 Mechanical Ventilator 09/07/19 16:00 84 09/07/19 16:00 100 09/07/19 16:00 Mechanical Ventilator 09/07/19 15:30 86 24 122/68 (86) 99 09/07/19 15:12 86 26 100 09/07/19 15:00 86 13 109/62 (78) 99 09/07/19 15:00 Mechanical Ventilator 4/25/20 14:30 89 7 109/64 (79) 100 09/07/19 14:00 Mechanical Ventilator 09/07/19 14:00 91 15 135/73 (93) 100 09/07/19 13:30 91 21 143/77 (99) 100 09/07/19 13:00 92 17 160/79 (106) 98 09/07/19 13:00 Mechanical Ventilator 09/07/19 12:30 88 33 141/70 (93) 100 09/07/19 12:00 Mechanical Ventilator 09/07/19 12:00 87 09/07/19 12:00 Mechanical Ventilator 09/07/19 12:00 100 09/07/19 12:00 100.5 88 34 140/73 (95) 100 09/07/19 11:15 87 34 100 09/07/19 11:00 Mechanical Ventilator 09/07/19 11:00 91 34 133/74 (93) 100 09/07/19 10:30 94 35 137/66 (89) 100 09/07/19 10:00 Mechanical Ventilator 09/07/19 10:00 95 36 131/73 (92) 100 09/07/19 09:30 95 35 123/56 (78) 100 09/07/19 09:00 Mechanical Ventilator 09/07/19 09:00 94 32 139/54 (82) 99 09/07/19 08:41 94 108/94 09/07/19 08:30 92 32 108/79 (89) 100 09/07/19 08:02 Mechanical Ventilator 09/07/19 08:00 100.5 92 29 122/59 (80) 100 09/07/19 08:00 Mechanical Ventilator 09/07/19 08:00 91 09/07/19 08:00 100 Intake and Output 09/08/19 09/09/19 19:00 07:00 Intake Total 1855.6 ml 1615 ml Output Total 450 ml 520 ml Balance 1405.6 ml 1095 ml Free Water 260 ml IV Total 1155.6 ml 695 ml Tube Feeding 600 ml 600 ml Other 100 ml 60 ml Output Urine Total 450 ml 520 ml # Bowel Movements 1 Labs Test 09/06/19 12:25 09/06/19 14:40 09/07/19 04:30 09/08/19 03:50 White Blood Count 11.0 K/UL (4.8-10.8) 13.7 K/UL (4.8-10.8) 15.1 K/UL (4.8-10.8) Red Blood Count 3.08 M/UL (4.70-6.10) 3.32 M/UL (4.70-6.10) 3.94 M/UL (4.70-6.10) Hemoglobin 9.7 G/DL (14.2-18.0) 10.3 G/DL (14.2-18.0) 12.4 G/DL (14.2-18.0) Hematocrit 28.9 % (42.0-52.0) 30.8 % (42.0-52.0) 34.8 % (42.0-52.0) Mean Corpuscular Volume 94 FL (80-99) 93 FL (80-99) 88 FL (80-99) Mean Corpuscular Hemoglobin 31.5 PG (27.0-31.0) 30.9 PG (27.0-31.0) 31.4 PG (27.0-31.0) Mean Corpuscular Hemoglobin Concent 33.6 G/DL (32.0-36.0) 33.4 G/DL (32.0-36.0) 35.6 G/DL (32.0-36.0) Red Cell Distribution Width 13.8 % (11.6-14.8) 13.4 % (11.6-14.8) 10.7 % (11.6-14.8) Platelet Count 117 K/UL (150-450) 108 K/UL (150-450) 268 K/UL (150-450) Mean Platelet Volume 9.0 FL (6.5-10.1) 8.4 FL (6.5-10.1) 6.6 FL (6.5-10.1) Neutrophils (%) (Auto) % (45.0-75.0) % (45.0-75.0) % (45.0-75.0) Lymphocytes (%) (Auto) % (20.0-45.0) % (20.0-45.0) % (20.0-45.0) Monocytes (%) (Auto) % (1.0-10.0) % (1.0-10.0) % (1.0-10.0) Eosinophils (%) (Auto) % (0.0-3.0) % (0.0-3.0) % (0.0-3.0) Basophils (%) (Auto) % (0.0-2.0) % (0.0-2.0) % (0.0-2.0) Differential Total Cells Counted 100 100 100 Neutrophils % (Manual) 90 % (45-75) 82 % (45-75) 90 % (45-75) Lymphocytes % (Manual) 6 % (20-45) 9 % (20-45) 4 % (20-45) Monocytes % (Manual) 4 % (1-10) 3 % (1-10) 5 % (1-10) Eosinophils % (Manual) 0 % (0-3) 2 % (0-3) 0 % (0-3) Basophils % (Manual) 0 % (0-2) 0 % (0-2) 0 % (0-2) Band Neutrophils 0 % (0-8) 0 % (0-8) 1 % (0-8) Platelet Estimate Decreased Decreased Adequate Platelet Morphology Normal Normal Normal Hypochromasia 2+ 1+ Anisocytosis 1+ Spherocytes 1+ Sodium Level 141 MMOL/L (136-145) 136 MMOL/L (136-145) 143 MMOL/L (136-145) Potassium Level 5.4 MMOL/L (3.5-5.1) 5.7 MMOL/L (3.5-5.1) 4.0 MMOL/L (3.5-5.1) Chloride Level 101 MMOL/L (98-107) 99 MMOL/L (98-107) 108 MMOL/L (98-107) Carbon Dioxide Level 38 MMOL/L (21-32) 35 MMOL/L (21-32) 21 MMOL/L (21-32) Anion Gap 2 mmol/L (5-15) 2 mmol/L (5-15) 14 mmol/L (5-15) Blood Urea Nitrogen 28 mg/dL (7-18) 30 mg/dL (7-18) 35 mg/dL (7-18) Creatinine 0.6 MG/DL (0.55-1.30) 0.7 MG/DL (0.55-1.30) 0.9 MG/DL (0.55-1.30) Estimat Glomerular Filtration Rate > 60 mL/min (>60) > 60 mL/min (>60) > 60 mL/min (>60) Glucose Level 194 MG/DL (74-106) 140 MG/DL (74-106) 144 MG/DL (74-106) Calcium Level 7.5 MG/DL (8.5-10.1) 7.8 MG/DL (8.5-10.1) 8.3 MG/DL (8.5-10.1) Total Bilirubin 0.2 MG/DL (0.2-1.0) 0.3 MG/DL (0.2-1.0) 0.5 MG/DL (0.2-1.0) Aspartate Amino Transf (AST/SGOT) 56 U/L (15-37) 118 U/L (15-37) 83 U/L (15-37) Alanine Aminotransferase (ALT/SGPT) 32 U/L (12-78) 52 U/L (12-78) 63 U/L (12-78) Alkaline Phosphatase 210 U/L (46-116) 251 U/L (46-116) 99 U/L (46-116) Total Protein 6.0 G/DL (6.4-8.2) 5.9 G/DL (6.4-8.2) 6.9 G/DL (6.4-8.2) Albumin 1.1 G/DL (3.4-5.0) 1.2 G/DL (3.4-5.0) 2.3 G/DL (3.4-5.0) Globulin 4.9 g/dL 4.7 g/dL 4.6 g/dL Albumin/Globulin Ratio 0.2 (1.0-2.7) 0.3 (1.0-2.7) 0.5 (1.0-2.7) Arterial Blood pH 7.346 (7.350-7.450) Arterial Blood Partial Pressure CO2 75.0 mmHg (35.0-45.0) Arterial Blood Partial Pressure O2 69.2 mmHg (75.0-100.0) Arterial Blood HCO3 40.1 mmol/L (22.0-26.0) Arterial Blood Oxygen Saturation 93.1 % (95-100) Arterial Blood Base Excess 12 (-2-2) Jag Test Positive Metamyelocytes % 3 % (0-0) Myelocytes % 1 % (0-0) Nucleated Red Blood Cells 2 /100 WBC Red Blood Cell Morphology Normal Ferritin 714 NG/ML (8-388) Lactate Dehydrogenase 873 U/L (81-234) C-Reactive Protein, Quantitative 10.5 mg/dL (0.00-0.90) Test 09/08/19 08:37 09/09/19 00:10 09/09/19 03:20 Arterial Blood pH 7.265 (7.350-7.450) 7.331 (7.350-7.450) Arterial Blood Partial Pressure CO2 81.2 mmHg (35.0-45.0) 67.8 mmHg (35.0-45.0) Arterial Blood Partial Pressure O2 71.3 mmHg (75.0-100.0) 53.5 mmHg (75.0-100.0) Arterial Blood HCO3 36.0 mmol/L (22.0-26.0) 35.0 mmol/L (22.0-26.0) Arterial Blood Oxygen Saturation 92.0 % (95-100) 85.1 % (95-100) Arterial Blood Base Excess 6.7 (-2-2) 7.2 (-2-2) Jag Test Positive Positive White Blood Count 14.3 K/UL (4.8-10.8) Red Blood Count 3.42 M/UL (4.70-6.10) Hemoglobin 10.6 G/DL (14.2-18.0) Hematocrit 32.2 % (42.0-52.0) Mean Corpuscular Volume 94 FL (80-99) Mean Corpuscular Hemoglobin 31.1 PG (27.0-31.0) Mean Corpuscular Hemoglobin Concent 33.1 G/DL (32.0-36.0) Red Cell Distribution Width 14.5 % (11.6-14.8) Platelet Count 67 K/UL (150-450) Mean Platelet Volume 10.0 FL (6.5-10.1) Neutrophils (%) (Auto) % (45.0-75.0) Lymphocytes (%) (Auto) % (20.0-45.0) Monocytes (%) (Auto) % (1.0-10.0) Eosinophils (%) (Auto) % (0.0-3.0) Basophils (%) (Auto) % (0.0-2.0) Sodium Level 135 MMOL/L (136-145) Potassium Level 5.5 MMOL/L (3.5-5.1) Chloride Level 96 MMOL/L (98-107) Carbon Dioxide Level 36 MMOL/L (21-32) Anion Gap 4 mmol/L (5-15) Blood Urea Nitrogen 41 mg/dL (7-18) Creatinine 0.8 MG/DL (0.55-1.30) Estimat Glomerular Filtration Rate > 60 mL/min (>60) Glucose Level 177 MG/DL (74-106) Calcium Level 7.8 MG/DL (8.5-10.1) Total Bilirubin 0.3 MG/DL (0.2-1.0) Aspartate Amino Transf (AST/SGOT) 76 U/L (15-37) Alanine Aminotransferase (ALT/SGPT) 59 U/L (12-78) Alkaline Phosphatase 243 U/L (46-116) Total Protein 6.2 G/DL (6.4-8.2) Albumin 1.3 G/DL (3.4-5.0) Globulin 4.9 g/dL Albumin/Globulin Ratio 0.3 (1.0-2.7) Height (Feet): 5 Height (Inches): 8.00 Weight (Pounds): 163 Objective Physical Exam General: Awake, nonverbal, febrile, intubated HEENT: NC/AT. EOMI. Cardiovascular: Tachycardic. S1 and S2 normal. No murmur appreciated Resp: Increased work of breathing with tachypnea. ++ intubated Abdomen: Abdomen is soft, nondistended. PEG in place ++ Skin: Intact. No abrasions, laceration or rash over the exposed skin MSK: No obvious deformity. Neuro: Awake, moaning incomprehensively, nonverbal. Ext: triple lumen++ Darinel Smith MD Sep 09, 2019 07:13
[2019-09-09] MEDS: levETIRAcetam 500mg/5ml Liquid GT SCH ×2 (08:41→20:23)
[2019-09-09] MEDS: Pantoprazole Inj IVP SCH (08:42)
[2019-09-09] MEDS: Solu-MEDROL 40mg Inj IVP SCH ×2 (08:42→20:23)
[2019-09-09] MEDS: Phenytoin Susp 100mg/4ml GT SCH (08:42)
[2019-09-09] MEDS: Eliquis 2.5mg tablet GT SCH ×2 (08:43→17:22)
[2019-09-09] MEDS: Metoprolol Tartrate 100mg tab GT SCH ×2 (08:43→20:23)
--- NOTE | 2019-09-09 09:39 | Pulmonolgy Critical Care Note ---
Sera Bacon OFFICE ASSISTANT RECEPTIONIST 09/09/19 0939: Critical Care - Asmt/Plan Assessment/Plan: ASSESSMENT Acute hypoxemic and hypercapnic respiratory failure ( required intubation) Suspected 2019 novel coronavirus infection Pneumonia History of CVA (cerebrovascular accident) Acute encephalopathy Multi-infarct dementia Uncontrolled seizures Atrial fibrillation and flutter Assessment/Plan: ABG this am better after AC up to 22 on 09/07, keep settings as is Continue ventilatory support/hold off on weaning TV 450, FIo2 100% , AC 22, PEEP 10 ; wean O2 as able Monitor gas exchange Proning 12hr on/off (if able) MDI in line with Vent tapered SM to 10 IV BID this am Completed 5 days of Plaquenil Zyvox/Candis/Polymyxin per ID, Flagyl added 09/07 SCX + 08/26 MRSA, repeated SCX 09/03 + MRSA Monitor CRP and ferritin: last LDH 873, ferritin 714 and CRP 10.5, prior IL-6 - 62 D/W pharmacy RE: Tociluzumab - per pharmacist on national shortage and cannot get, will continue to follow up Remdesivir limited to trial, cannot get under compassionate care Monitor volumes and renal function off ICU sedation:off Fent gtt /sluggish pupil response trend CRP, LDH, ferritin: last CRP 10.5, LDH 714, ferritin 873 ; prior IL-6-62 F/U neuro recs, continue AED's Monitor LFT's, TF's with strict aspiration precautions DVT Px: Fanny FC, continue to discuss GOC Overall prognosis poor given gravity of his condition Disposition: keep in ICU Time Spent (Minutes): 40 Notes Reviewed: digital media representative, cardio, ID, neuro Discussed with: nurses, consultants case discussed and evaluated by supervising physician Critical Care - Objective Last 24 Hour Vital Signs Date Time Temp Pulse Resp B/P (MAP) Pulse Ox O2 Delivery O2 Flow Rate FiO2 09/09/19 08:43 92 118/65 09/09/19 07:29 92 33 93 Mechanical Ventilator 100 98 37 100 09/09/19 07:00 89 30 118/65 (82) 98 09/09/19 06:30 89 30 09/09/19 06:00 89 25 123/73 (90) 97 09/09/19 05:00 88 28 116/67 (83) 98 09/09/19 04:44 89 31 100 09/09/19 04:00 91 09/09/19 04:00 100 09/09/19 04:00 Mechanical Ventilator 09/09/19 04:00 98.3 91 31 115/81 (92) 96 09/09/19 03:30 90 38 112/66 (81) 97 09/09/19 03:00 90 32 115/69 (84) 97 09/09/19 02:56 85 29 100 09/09/19 02:00 87 34 122/77 (92) 97 09/09/19 01:15 98.3 09/09/19 01:00 98.7 84 36 119/71 (87) 92 09/09/19 00:05 82 33 90 Mechanical Ventilator 100 84 34 100 09/09/19 00:00 Mechanical Ventilator 09/09/19 00:00 82 35 131/74 (93) 87 09/08/19 23:58 30 Mechanical Ventilator 100 09/08/19 23:00 80 28 122/68 (86) 90 09/08/19 22:36 88 31 100 09/08/19 22:00 82 28 125/76 (92) 92 09/08/19 22:00 28 Mechanical Ventilator 100 09/08/19 21:00 26 Mechanical Ventilator 100 09/08/19 21:00 98.3 84 28 89 09/08/19 20:40 26 Mechanical Ventilator 100 09/08/19 20:33 81 30 100 09/08/19 20:31 28 Mechanical Ventilator 100 09/08/19 20:30 85 126/65 09/08/19 20:00 85 09/08/19 20:00 100 09/08/19 20:00 Mechanical Ventilator 09/08/19 20:00 28 Mechanical Ventilator 100 09/08/19 20:00 82 28 126/65 (85) 94 09/08/19 19:02 85 28 93 Mechanical Ventilator 100 87 29 100 09/08/19 19:00 82 29 115/61 (79) 96 09/08/19 19:00 28 Mechanical Ventilator 100 09/08/19 18:00 28 Mechanical Ventilator 09/08/19 18:00 83 28 115/64 (81) 99 09/08/19 17:00 28 Mechanical Ventilator 09/08/19 17:00 85 28 112/72 (85) 93 09/08/19 16:00 Mechanical Ventilator 09/08/19 16:00 100 09/08/19 16:00 85 09/08/19 16:00 28 Mechanical Ventilator 09/08/19 16:00 97.4 85 30 126/68 (87) 94 09/08/19 15:00 83 28 108/73 (85) 99 09/08/19 15:00 29 Mechanical Ventilator 09/08/19 14:45 82 28 100 09/08/19 14:00 80 28 107/54 (71) 97 09/08/19 14:00 27 Mechanical Ventilator 09/08/19 13:30 80 28 116/70 (85) 97 09/08/19 13:00 97.2 79 28 105/61 (76) 99 09/08/19 13:00 28 Mechanical Ventilator 09/08/19 12:00 100 09/08/19 12:00 79 09/08/19 12:00 28 Mechanical Ventilator 09/08/19 12:00 78 28 112/71 (85) 97 09/08/19 12:00 Mechanical Ventilator 09/08/19 11:00 29 Mechanical Ventilator 09/08/19 11:00 77 28 121/68 (85) 96 09/08/19 10:35 76 28 100 09/08/19 10:00 75 27 141/73 (95) 93 09/08/19 10:00 28 Mechanical Ventilator Objective: Status: poorly responsive , intubated Condition: critical HEENT: atraumatic, normocephalic, OP with ET in place, intact, Neck: RIJ CL intact Lungs: scattered rhonchi Heart: HR/BP stable, regular, SR with 1 st degree AV block with some PAC Abdomen: soft, non-tender, active bowel sounds, GT feeding tube, : Swartz, large scrotal edema Extremities: no edema Critical Care - Subjective ROS Limited/Unobtainable: Yes Interval Events: still with leukocytosis, no fevers for last 24 hrs off Fentanyl gtt ( sluggish pupil reaction)' AC increased to 22 09/07, this am ABG better CXR for this am pending Condition: critical IV Access: central - RIJ intact EKG Rhythm: Sinus Rhythm - with 1 st degree AV block FI02: 100 Vent Support Breath Rate: 22 Vent Support Mode: AC Vent Tidal Volume: 450 Sputum Amount: Small PEEP: 10.0 PIP: 44 Secretions: small amount, thick consistency, yellow color Tube Feeding Amount: 50 I&O: Intake and Output 09/08/19 09/09/19 19:00 07:00 Intake Total 1855.6 ml 1615 ml Output Total 450 ml 520 ml Balance 1405.6 ml 1095 ml Free Water 260 ml IV Total 1155.6 ml 695 ml Tube Feeding 600 ml 600 ml Other 100 ml 60 ml Output Urine Total 450 ml 520 ml # Bowel Movements 1 CXR: CXR 09/07 no significant change in moderate to severe diffuse bilateral alveolar infiltrates since the prior study. ET-Tube: 7.5 ET Position: 25 David Nash MD 09/09/19 1941: Critical Care - Asmt/Plan Assessment/Plan: Patient seen with OFFICE ASSISTANT RECEPTIONIST, agree with A&P as it reflects our joint deliberations. 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 Continue ventilatory support as-is, LPV, inc PEEP, wean FiO2 as able Cefepime, Zyvox, Flagy per ID Of utmost importance is continued GOC discussions. Time Spent (Minutes): other - CCT 35 Sera Bacon NP Sep 09, 2019 09:39 David Nash MD Sep 09, 2019 19:41
--- NOTE | 2019-09-09 09:47 | General Progress Note ---
Assessment/Plan Assessment/Plan: 83YO M with HTN, HLD, COPD, CAD, Seizure disorder presenting with cough and shortness of breath. In the ED, patient was found to be tachycardic (130's) and tachypnic (33) and febrile at 101.2. #Hypoxemic acute respiratory failure 2/2 COVID #Septic shock #Covid19 positive #transaminitis - likely 2/2 to above, downtrending/stable #Fevers #MRSA pneumonia #Drug reaction/Red Man syndrome - resolved -Appreciate ICU care -Continue vent management per the ICU team, daily SBT -Cont. contact plus droplet isolation. -Continuous front desk monitor. -s/p Plaquenil -08/26 BCx NGTD -08/26 SCx - MRSA -08/29 UCx NGTD 09/03 SCx +staph aureus -Steroids per Pulm -ID following: linezolid, meropenem #Hyperkalemia #Hypokalemia - resolved -ctm, replace PRN -Kayexalate -repeat BMP in AM #Abdominal distension - improved, Ileus -KUB reviewed -d/w general sx, likely ileus #History of Seizure disorder: -cont Dilantin and Keppra -Neurology following #Paroxysmal Atrial flutter with rapid ventricular response #Accelerated HTN - resolved #HLD #CAD #Eliquis use #elevated troponins likely 2/2 demand ischemia, down trending -MTP increased to 100 BID, hydralazine PRN -Eliquis 2.5 -Cardio following, recs appreciated #Sacral Decubitus Ulcer -general sx/wound care following -recs appreciated prognosis guarded I spent 65 minutes on this patient's case, and 31 mins was dedicated to critical care. Critical Care Services performed include: Telemetry Review Hemodynamic measurement interpretation ABG interpretation Laboratory data review and interpretation Radiology image review and interpretation Ventilator setting review, management Discussion of patient's care with ICU team, ICU Nursing staff and/or consulting services ID, CILNICAL SCIENTIST, Pulm Subjective Allergies: Coded Allergies: No Known Allergies (Unverified , 02/29/16) Subjective Follow up for acute hypoxic resp failure, septic shock, COVID-19 positive. Pt remains intubated. Fentanyl stopped overnight. Pt continues to be in and out of afib. Objective Last 24 Hour Vital Signs Date Time Temp Pulse Resp B/P (MAP) Pulse Ox O2 Delivery O2 Flow Rate FiO2 09/09/19 09:00 97 33 143/72 (95) 96 09/09/19 08:43 92 118/65 09/09/19 08:30 97.9 95 29 138/74 (95) 97 09/09/19 08:00 92 26 131/72 (91) 98 09/09/19 08:00 Mechanical Ventilator 09/09/19 08:00 100 09/09/19 07:29 92 33 93 Mechanical Ventilator 100 98 37 100 09/09/19 07:00 89 30 118/65 (82) 98 09/09/19 06:30 89 30 09/09/19 06:00 89 25 123/73 (90) 97 09/09/19 05:00 88 28 116/67 (83) 98 09/09/19 04:44 89 31 100 09/09/19 04:00 91 09/09/19 04:00 100 09/09/19 04:00 Mechanical Ventilator 09/09/19 04:00 98.3 91 31 115/81 (92) 96 09/09/19 03:30 90 38 112/66 (81) 97 09/09/19 03:00 90 32 115/69 (84) 97 09/09/19 02:56 85 29 100 09/09/19 02:00 87 34 122/77 (92) 97 09/09/19 01:15 98.3 09/09/19 01:00 98.7 84 36 119/71 (87) 92 09/09/19 00:05 82 33 90 Mechanical Ventilator 100 84 34 100 09/09/19 00:00 Mechanical Ventilator 09/09/19 00:00 82 35 131/74 (93) 87 09/08/19 23:58 30 Mechanical Ventilator 100 09/08/19 23:00 80 28 122/68 (86) 90 09/08/19 22:36 88 31 100 09/08/19 22:00 82 28 125/76 (92) 92 09/08/19 22:00 28 Mechanical Ventilator 100 09/08/19 21:00 26 Mechanical Ventilator 100 09/08/19 21:00 98.3 84 28 89 09/08/19 20:40 26 Mechanical Ventilator 100 09/08/19 20:33 81 30 100 09/08/19 20:31 28 Mechanical Ventilator 100 09/08/19 20:30 85 126/65 09/08/19 20:00 85 09/08/19 20:00 100 09/08/19 20:00 Mechanical Ventilator 09/08/19 20:00 28 Mechanical Ventilator 100 09/08/19 20:00 82 28 126/65 (85) 94 09/08/19 19:02 85 28 93 Mechanical Ventilator 100 87 29 100 09/08/19 19:00 82 29 115/61 (79) 96 09/08/19 19:00 28 Mechanical Ventilator 100 09/08/19 18:00 28 Mechanical Ventilator 09/08/19 18:00 83 28 115/64 (81) 99 09/08/19 17:00 28 Mechanical Ventilator 09/08/19 17:00 85 28 112/72 (85) 93 09/08/19 16:00 Mechanical Ventilator 09/08/19 16:00 100 09/08/19 16:00 85 09/08/19 16:00 28 Mechanical Ventilator 09/08/19 16:00 97.4 85 30 126/68 (87) 94 09/08/19 15:00 83 28 108/73 (85) 99 09/08/19 15:00 29 Mechanical Ventilator 09/08/19 14:45 82 28 100 09/08/19 14:00 80 28 107/54 (71) 97 09/08/19 14:00 27 Mechanical Ventilator 09/08/19 13:30 80 28 116/70 (85) 97 09/08/19 13:00 97.2 79 28 105/61 (76) 99 09/08/19 13:00 28 Mechanical Ventilator 09/08/19 12:00 100 09/08/19 12:00 79 09/08/19 12:00 28 Mechanical Ventilator 09/08/19 12:00 78 28 112/71 (85) 97 09/08/19 12:00 Mechanical Ventilator 09/08/19 11:00 29 Mechanical Ventilator 09/08/19 11:00 77 28 121/68 (85) 96 09/08/19 10:35 76 28 100 09/08/19 10:00 75 27 141/73 (95) 93 09/08/19 10:00 28 Mechanical Ventilator Intake and Output 09/08/19 09/09/19 19:00 07:00 Intake Total 1855.6 ml 1615 ml Output Total 450 ml 520 ml Balance 1405.6 ml 1095 ml Free Water 260 ml IV Total 1155.6 ml 695 ml Tube Feeding 600 ml 600 ml Other 100 ml 60 ml Output Urine Total 450 ml 520 ml # Bowel Movements 1 Laboratory Tests 09/09/19 00:10: Arterial Blood pH 7.331L, Arterial Blood Partial Pressure CO2 67.8*H, Arterial Blood Partial Pressure O2 53.5L, Arterial Blood HCO3 35.0H, Arterial Blood Oxygen Saturation 85.1*L, Arterial Blood Base Excess 7.2H, Jag Test Positive 09/09/19 03:20: White Blood Count 14.3H, Red Blood Count 3.42L, Hemoglobin 10.6L, Hematocrit 32.2L, Mean Corpuscular Volume 94, Mean Corpuscular Hemoglobin 31.1H, Mean Corpuscular Hemoglobin Concent 33.1, Red Cell Distribution Width 14.5, Platelet Count 67#L, Mean Platelet Volume 10.0, Neutrophils (%) (Auto) , Lymphocytes (%) (Auto) , Monocytes (%) (Auto) , Eosinophils (%) (Auto) , Basophils (%) (Auto) , Neutrophils % (Manual) [Pending], Lymphocytes % (Manual) [Pending], Platelet Estimate [Pending], Platelet Morphology [Pending], Sodium Level 135L, Potassium Level 5.5H, Chloride Level 96L, Carbon Dioxide Level 36H, Anion Gap 4L, Blood Urea Nitrogen 41H, Creatinine 0.8, Estimat Glomerular Filtration Rate > 60, Glucose Level 177H, Calcium Level 7.8L, Total Bilirubin 0.3, Aspartate Amino Transf (AST/SGOT) 76H, Alanine Aminotransferase (ALT/SGPT) 59, Alkaline Phosphatase 243H, Total Protein 6.2L, Albumin 1.3L, Globulin 4.9, Albumin/ Globulin Ratio 0.3L, Hepatitis A IgM Antibody [Pending], Hepatitis B Surface Antigen [Pending], Hepatitis B Core IgM Antibody [Pending], Hepatitis C Antibody [Pending] 09/09/19 04:00: Arterial Blood pH 7.414, Arterial Blood Partial Pressure CO2 58.0*H, Arterial Blood Partial Pressure O2 76.5, Arterial Blood HCO3 36.3H, Arterial Blood Oxygen Saturation 95.0, Arterial Blood Base Excess 10.0*H, Jag Test Positive Height (Feet): 5 Height (Inches): 8.00 Weight (Pounds): 163 Objective General: Intubated HEENT: NCAT, ETT in place CV: irregularly irregular Pulm: b/l rise in lungs Ext: heels wrapped in bandages, no edema noted Liliana Leal M.D. Sep 09, 2019 09:47
--- NOTE | 2019-09-09 09:53 | NUR ---
NURSE NOTES: Patient is lethargic; fentanyl drip is off. Patient remains orally intubated, previous settings tolerated at this time. Patient is afebrile. Scheduled medications given. TF ongoing, Glucerna 1.2 at 50ml/hr. HOB elevated for aspiration precautions. No s/s of distress at this time. Will continue to monitor.
--- NOTE | 2019-09-09 10:30 | Diagnostic Imaging Report ---
Indication: There is a breath Technique: One view of the chest Comparison: 09/08/2019 Findings: Bilateral diffuse airspace infiltrates persist, are extensive, but may be slightly improved as manifested by improved visualization of the bilateral hemidiaphragms. The endotracheal tube and right jugular central venous catheter remain. Impression: Extensive bilateral infiltrates appearing slightly improved since previous day's exam
--- NOTE | 2019-09-09 10:38 | NUR ---
NURSE NOTES: Sera Bacon NP aware of patient's ABG results. Ordered to keep vent settings as it is. Patient saturating 96% on current vent settings.
[2019-09-09 10:45] LABS: HEMATOCRIT 29.6 % (42.0-52.0); MEAN CORPUSCULAR VOLUME 93 FL (80-99); PLATELET COUNT 60 K/UL (150-450); RED BLOOD COUNT 3.19 M/UL (4.70-6.10); WHITE BLOOD COUNT 13.7 K/UL (4.8-10.8)
--- NOTE | 2019-09-09 11:30 | NUR ---
NURSE NOTES: Dr Leal present in the unit, notified and made aware patient is off fentanyl and abnormal labs this morning. No new verbal orders received at this time. Will continue to monitor.
[2019-09-09] MEDS ORDERED: Sodium Polystyrene Sulfonate 15gm Powder ORAL SCH (13:27)
--- NOTE | 2019-09-09 14:00 | NUR ---
NURSE NOTES: Dr Robles present in the unit, notified patient's afib on the tugger operator. Provided complete bed bath; large, brown, soft BM noted. Linens changed and placed patient in clean gown. Scheduled medications given. Resumed TF after bed bath. Oral care provided. Will continue to monitor patient.
--- NOTE | 2019-09-09 14:18 | Cardiac Electrophysiology PN ---
Assessment/Plan Assessment/Plan 1. Paroxysmal Atrial flutter with rapid ventricular response. In SR with first degree AVB but now atrial fib On Eliquis 2.5 mg bid and metoprolol 100 mg bid. Add Amiodarone 200 daily 2. Accelerated hypertension with blood pressure of 200. Continue metoprolol 100 mg b.i.d. and p.r.n. IV hydralazine. 3. 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 4. Respiratory failure due to COVID-19 pneumonia. On the Vent on 100% fio2 and PEEP 12 Completed hydroxychloroquine. EKG QT 440 . 5. Sepsis on Solu-Medrol and Abx per ID 6. History of CVA. 7. Multi-infarct dementia. 8. History of seizures. 9. Abdominal distension 10. S/P PEG 11. Full Code DW RN Subjective Subjective Intubated in ICU on 100% Fio2 and PEEP 10, AC 22. Covid is positive. In SR off pressors. Off fentanyl drip again had atrial fib with RVR 120s again despite Lopressor 100 bid. In SR today. Objective Last 24 Hour Vital Signs Date Time Temp Pulse Resp B/P (MAP) Pulse Ox O2 Delivery O2 Flow Rate FiO2 09/09/19 14:00 100 17 133/67 (89) 99 09/09/19 13:00 Mechanical Ventilator 09/09/19 13:00 97.8 100 31 127/66 (86) 99 09/09/19 12:00 101 13 133/69 (90) 98 09/09/19 12:00 100 09/09/19 11:00 101 30 136/72 (93) 96 09/09/19 10:09 101 33 100 09/09/19 10:00 09/09/19 10:00 101 35 147/77 (100) 97 09/09/19 09:00 97 33 143/72 (95) 96 09/09/19 08:43 92 118/65 09/09/19 08:30 97.9 95 29 138/74 (95) 97 09/09/19 08:00 92 26 131/72 (91) 98 09/09/19 08:00 Mechanical Ventilator 09/09/19 08:00 100 09/09/19 08:00 93 09/09/19 07:29 92 33 93 Mechanical Ventilator 100 98 37 100 09/09/19 07:00 89 30 118/65 (82) 98 09/09/19 06:30 89 30 09/09/19 06:00 89 25 123/73 (90) 97 09/09/19 05:00 88 28 116/67 (83) 98 09/09/19 04:44 89 31 100 09/09/19 04:00 91 09/09/19 04:00 100 09/09/19 04:00 Mechanical Ventilator 09/09/19 04:00 98.3 91 31 115/81 (92) 96 09/09/19 03:30 90 38 112/66 (81) 97 09/09/19 03:00 90 32 115/69 (84) 97 09/09/19 02:56 85 29 100 09/09/19 02:00 87 34 122/77 (92) 97 09/09/19 01:15 98.3 09/09/19 01:00 98.7 84 36 119/71 (87) 92 09/09/19 00:05 82 33 90 Mechanical Ventilator 100 84 34 100 09/09/19 00:00 Mechanical Ventilator 09/09/19 00:00 82 35 131/74 (93) 87 09/08/19 23:58 30 Mechanical Ventilator 100 09/08/19 23:00 80 28 122/68 (86) 90 09/08/19 22:36 88 31 100 09/08/19 22:00 82 28 125/76 (92) 92 09/08/19 22:00 28 Mechanical Ventilator 100 09/08/19 21:00 26 Mechanical Ventilator 100 09/08/19 21:00 98.3 84 28 89 09/08/19 20:40 26 Mechanical Ventilator 100 09/08/19 20:33 81 30 100 09/08/19 20:31 28 Mechanical Ventilator 100 09/08/19 20:30 85 126/65 09/08/19 20:00 85 09/08/19 20:00 100 09/08/19 20:00 Mechanical Ventilator 09/08/19 20:00 28 Mechanical Ventilator 100 09/08/19 20:00 82 28 126/65 (85) 94 09/08/19 19:02 85 28 93 Mechanical Ventilator 100 87 29 100 09/08/19 19:00 82 29 115/61 (79) 96 09/08/19 19:00 28 Mechanical Ventilator 100 09/08/19 18:00 28 Mechanical Ventilator 09/08/19 18:00 83 28 115/64 (81) 99 09/08/19 17:00 28 Mechanical Ventilator 09/08/19 17:00 85 28 112/72 (85) 93 09/08/19 16:00 Mechanical Ventilator 09/08/19 16:00 100 09/08/19 16:00 85 09/08/19 16:00 28 Mechanical Ventilator 09/08/19 16:00 97.4 85 30 126/68 (87) 94 09/08/19 15:00 83 28 108/73 (85) 99 09/08/19 15:00 29 Mechanical Ventilator 09/08/19 14:45 82 28 100 Intake and Output 09/08/19 09/09/19 19:00 07:00 Intake Total 1855.6 ml 1615 ml Output Total 450 ml 520 ml Balance 1405.6 ml 1095 ml Free Water 260 ml IV Total 1155.6 ml 695 ml Tube Feeding 600 ml 600 ml Other 100 ml 60 ml Output Urine Total 450 ml 520 ml # Bowel Movements 1 Laboratory Tests Test 09/09/19 00:10 09/09/19 03:20 09/09/19 04:00 09/09/19 09:00 Arterial Blood pH 7.331 (7.350-7.450) 7.414 (7.350-7.450) Arterial Blood Partial Pressure CO2 67.8 mmHg (35.0-45.0) *H 58.0 mmHg (35.0-45.0) *H Arterial Blood Partial Pressure O2 53.5 mmHg (75.0-100.0) L 76.5 mmHg (75.0-100.0) Arterial Blood HCO3 35.0 mmol/L (22.0-26.0) H 36.3 mmol/L (22.0-26.0) H Arterial Blood Oxygen Saturation 85.1 % (95-100) *L 95.0 % (95-100) Arterial Blood Base Excess 7.2 (-2-2) H 10.0 (-2-2) *H Jag Test Positive Positive White Blood Count 14.3 K/UL (4.8-10.8) H 13.7 K/UL (4.8-10.8) H Red Blood Count 3.42 M/UL (4.70-6.10) L 3.19 M/UL (4.70-6.10) L Hemoglobin 10.6 G/DL (14.2-18.0) L 10.0 G/DL (14.2-18.0) L Hematocrit 32.2 % (42.0-52.0) L 29.6 % (42.0-52.0) L Mean Corpuscular Volume 94 FL (80-99) 93 FL (80-99) Mean Corpuscular Hemoglobin 31.1 PG (27.0-31.0) H 31.4 PG (27.0-31.0) H Mean Corpuscular Hemoglobin Concent 33.1 G/DL (32.0-36.0) 33.9 G/DL (32.0-36.0) Red Cell Distribution Width 14.5 % (11.6-14.8) 15.0 % (11.6-14.8) H Platelet Count 67 K/UL (150-450) #L 60 K/UL (150-450) L Mean Platelet Volume 10.0 FL (6.5-10.1) 9.4 FL (6.5-10.1) Neutrophils (%) (Auto) % (45.0-75.0) % (45.0-75.0) Lymphocytes (%) (Auto) % (20.0-45.0) % (20.0-45.0) Monocytes (%) (Auto) % (1.0-10.0) % (1.0-10.0) Eosinophils (%) (Auto) % (0.0-3.0) % (0.0-3.0) Basophils (%) (Auto) % (0.0-2.0) % (0.0-2.0) Differential Total Cells Counted 100 100 Neutrophils % (Manual) 78 % (45-75) H 81 % (45-75) H Lymphocytes % (Manual) 9 % (20-45) L 11 % (20-45) L Monocytes % (Manual) 6 % (1-10) 8 % (1-10) Eosinophils % (Manual) 0 % (0-3) 0 % (0-3) Basophils % (Manual) 0 % (0-2) 0 % (0-2) Myelocytes % 1 % (0-0) H Band Neutrophils 6 % (0-8) 0 % (0-8) Nucleated Red Blood Cells 3 /100 WBC 6 /100 WBC Platelet Estimate Decreased L Decreased L Platelet Morphology Normal Normal Polychromasia 1+ 1+ Anisocytosis 1+ 1+ Sodium Level 135 MMOL/L (136-145) L Potassium Level 5.5 MMOL/L (3.5-5.1) H Chloride Level 96 MMOL/L (98-107) L Carbon Dioxide Level 36 MMOL/L (21-32) H Anion Gap 4 mmol/L (5-15) L Blood Urea Nitrogen 41 mg/dL (7-18) H Creatinine 0.8 MG/DL (0.55-1.30) Estimat Glomerular Filtration Rate > 60 mL/min (>60) Glucose Level 177 MG/DL (74-106) H Calcium Level 7.8 MG/DL (8.5-10.1) L Total Bilirubin 0.3 MG/DL (0.2-1.0) Aspartate Amino Transf (AST/SGOT) 76 U/L (15-37) H Alanine Aminotransferase (ALT/SGPT) 59 U/L (12-78) Alkaline Phosphatase 243 U/L (46-116) H Total Protein 6.2 G/DL (6.4-8.2) L Albumin 1.3 G/DL (3.4-5.0) L Globulin 4.9 g/dL Albumin/Globulin Ratio 0.3 (1.0-2.7) L Hepatitis A IgM Antibody Pending Hepatitis B Surface Antigen Pending Hepatitis B Core IgM Antibody Pending Hepatitis C Antibody Pending Objective HEAD AND NECK: No JVD. Orally intubated. LUNGS: Coarse rhonchi. CARDIOVASCULAR: Irregular S1 and S2 with no gallop or murmur. ABDOMEN: Soft. PEG in place EXTREMITIES: 1 plus pitting edema. Paul Robles MD Sep 09, 2019 14:18
--- NOTE | 2019-09-09 16:35 | NUR ---
NURSE NOTES: No s/s of pain/distress at this time. VSS. TF infusing glucerna 1.2 at 50ml/hr. Will continue to monitor.
--- NOTE | 2019-09-09 16:48 | Surgery Progress Note ---
Surgery Progress Note Subjective Additional Comments labs somewhat improved exam stable prognosis guarded on high vent support Objective Last 24 Hour Vital Signs Date Time Temp Pulse Resp B/P (MAP) Pulse Ox O2 Delivery O2 Flow Rate FiO2 09/09/19 16:00 Mechanical Ventilator 09/09/19 16:00 100 09/09/19 16:00 96 8 114/58 (76) 99 09/09/19 15:21 96 28 100 09/09/19 15:00 98 26 118/61 (80) 99 09/09/19 14:00 100 17 133/67 (89) 99 09/09/19 13:05 99 29 99 Mechanical Ventilator 100 96 29 100 09/09/19 13:00 Mechanical Ventilator 09/09/19 13:00 97.8 100 31 127/66 (86) 99 09/09/19 12:00 101 09/09/19 12:00 101 13 133/69 (90) 98 09/09/19 12:00 100 09/09/19 11:00 101 30 136/72 (93) 96 09/09/19 10:09 101 33 100 09/09/19 10:00 09/09/19 10:00 101 35 147/77 (100) 97 09/09/19 09:00 97 33 143/72 (95) 96 09/09/19 08:43 92 118/65 09/09/19 08:30 97.9 95 29 138/74 (95) 97 09/09/19 08:00 92 26 131/72 (91) 98 09/09/19 08:00 Mechanical Ventilator 09/09/19 08:00 100 09/09/19 08:00 93 09/09/19 07:29 92 33 93 Mechanical Ventilator 100 98 37 100 09/09/19 07:00 89 30 118/65 (82) 98 09/09/19 06:30 89 30 09/09/19 06:00 89 25 123/73 (90) 97 09/09/19 05:00 88 28 116/67 (83) 98 09/09/19 04:44 89 31 100 09/09/19 04:00 91 09/09/19 04:00 100 09/09/19 04:00 Mechanical Ventilator 09/09/19 04:00 98.3 91 31 115/81 (92) 96 09/09/19 03:30 90 38 112/66 (81) 97 09/09/19 03:00 90 32 115/69 (84) 97 09/09/19 02:56 85 29 100 09/09/19 02:00 87 34 122/77 (92) 97 09/09/19 01:15 98.3 09/09/19 01:00 98.7 84 36 119/71 (87) 92 09/09/19 00:05 82 33 90 Mechanical Ventilator 100 84 34 100 09/09/19 00:00 Mechanical Ventilator 09/09/19 00:00 82 35 131/74 (93) 87 09/08/19 23:58 30 Mechanical Ventilator 100 09/08/19 23:00 80 28 122/68 (86) 90 09/08/19 22:36 88 31 100 09/08/19 22:00 82 28 125/76 (92) 92 09/08/19 22:00 28 Mechanical Ventilator 100 09/08/19 21:00 26 Mechanical Ventilator 100 09/08/19 21:00 98.3 84 28 89 09/08/19 20:40 26 Mechanical Ventilator 100 09/08/19 20:33 81 30 100 09/08/19 20:31 28 Mechanical Ventilator 100 09/08/19 20:30 85 126/65 09/08/19 20:00 85 09/08/19 20:00 100 09/08/19 20:00 Mechanical Ventilator 09/08/19 20:00 28 Mechanical Ventilator 100 09/08/19 20:00 82 28 126/65 (85) 94 09/08/19 19:02 85 28 93 Mechanical Ventilator 100 87 29 100 09/08/19 19:00 82 29 115/61 (79) 96 09/08/19 19:00 28 Mechanical Ventilator 100 09/08/19 18:00 28 Mechanical Ventilator 09/08/19 18:00 83 28 115/64 (81) 99 09/08/19 17:00 28 Mechanical Ventilator 09/08/19 17:00 85 28 112/72 (85) 93 I&O Intake and Output 09/08/19 09/09/19 19:00 07:00 Intake Total 1855.6 ml 1615 ml Output Total 450 ml 520 ml Balance 1405.6 ml 1095 ml Free Water 260 ml IV Total 1155.6 ml 695 ml Tube Feeding 600 ml 600 ml Other 100 ml 60 ml Output Urine Total 450 ml 520 ml # Bowel Movements 1 Dressing: other Wound: other Drains: other Cardiovascular: RSR Respiratory: decreased breath sounds Abdomen: non-tender, present bowel sounds Extremities: no tenderness, no cyanosis Laboratory Tests Test 09/09/19 00:10 09/09/19 03:20 09/09/19 04:00 09/09/19 09:00 Arterial Blood pH 7.331 (7.350-7.450) 7.414 (7.350-7.450) Arterial Blood Partial Pressure CO2 67.8 mmHg (35.0-45.0) *H 58.0 mmHg (35.0-45.0) *H Arterial Blood Partial Pressure O2 53.5 mmHg (75.0-100.0) L 76.5 mmHg (75.0-100.0) Arterial Blood HCO3 35.0 mmol/L (22.0-26.0) H 36.3 mmol/L (22.0-26.0) H Arterial Blood Oxygen Saturation 85.1 % (95-100) *L 95.0 % (95-100) Arterial Blood Base Excess 7.2 (-2-2) H 10.0 (-2-2) *H Jag Test Positive Positive White Blood Count 14.3 K/UL (4.8-10.8) H 13.7 K/UL (4.8-10.8) H Red Blood Count 3.42 M/UL (4.70-6.10) L 3.19 M/UL (4.70-6.10) L Hemoglobin 10.6 G/DL (14.2-18.0) L 10.0 G/DL (14.2-18.0) L Hematocrit 32.2 % (42.0-52.0) L 29.6 % (42.0-52.0) L Mean Corpuscular Volume 94 FL (80-99) 93 FL (80-99) Mean Corpuscular Hemoglobin 31.1 PG (27.0-31.0) H 31.4 PG (27.0-31.0) H Mean Corpuscular Hemoglobin Concent 33.1 G/DL (32.0-36.0) 33.9 G/DL (32.0-36.0) Red Cell Distribution Width 14.5 % (11.6-14.8) 15.0 % (11.6-14.8) H Platelet Count 67 K/UL (150-450) #L 60 K/UL (150-450) L Mean Platelet Volume 10.0 FL (6.5-10.1) 9.4 FL (6.5-10.1) Neutrophils (%) (Auto) % (45.0-75.0) % (45.0-75.0) Lymphocytes (%) (Auto) % (20.0-45.0) % (20.0-45.0) Monocytes (%) (Auto) % (1.0-10.0) % (1.0-10.0) Eosinophils (%) (Auto) % (0.0-3.0) % (0.0-3.0) Basophils (%) (Auto) % (0.0-2.0) % (0.0-2.0) Differential Total Cells Counted 100 100 Neutrophils % (Manual) 78 % (45-75) H 81 % (45-75) H Lymphocytes % (Manual) 9 % (20-45) L 11 % (20-45) L Monocytes % (Manual) 6 % (1-10) 8 % (1-10) Eosinophils % (Manual) 0 % (0-3) 0 % (0-3) Basophils % (Manual) 0 % (0-2) 0 % (0-2) Myelocytes % 1 % (0-0) H Band Neutrophils 6 % (0-8) 0 % (0-8) Nucleated Red Blood Cells 3 /100 WBC 6 /100 WBC Platelet Estimate Decreased L Decreased L Platelet Morphology Normal Normal Polychromasia 1+ 1+ Anisocytosis 1+ 1+ Sodium Level 135 MMOL/L (136-145) L Potassium Level 5.5 MMOL/L (3.5-5.1) H Chloride Level 96 MMOL/L (98-107) L Carbon Dioxide Level 36 MMOL/L (21-32) H Anion Gap 4 mmol/L (5-15) L Blood Urea Nitrogen 41 mg/dL (7-18) H Creatinine 0.8 MG/DL (0.55-1.30) Estimat Glomerular Filtration Rate > 60 mL/min (>60) Glucose Level 177 MG/DL (74-106) H Calcium Level 7.8 MG/DL (8.5-10.1) L Total Bilirubin 0.3 MG/DL (0.2-1.0) Aspartate Amino Transf (AST/SGOT) 76 U/L (15-37) H Alanine Aminotransferase (ALT/SGPT) 59 U/L (12-78) Alkaline Phosphatase 243 U/L (46-116) H Total Protein 6.2 G/DL (6.4-8.2) L Albumin 1.3 G/DL (3.4-5.0) L Globulin 4.9 g/dL Albumin/Globulin Ratio 0.3 (1.0-2.7) L Hepatitis A IgM Antibody Pending Hepatitis B Surface Antigen Pending Hepatitis B Core IgM Antibody Pending Hepatitis C Antibody Pending Plan Problems: (1) Decubitus skin ulcer Assessment & Plan: Patient presented on admission with Sacral DTPI. Base of wound is purple with maroon borders. Unstageable pressure injury Plantar L heel . Base of wound is necrotic with marginal erythema along borders. Non-blanching erythema R heel. Sacral DTPI now evolving since admission. Several opening within base of wound. No exudate noted. Open areas are moist and jason. Surrounding base of wound is purple with erythema along borders. Unstageable Pressure injury Plantar L heel. Base of wound is necrotic. Edges adherent to base of wound. Tx.Plan: Cleanse Sacral wound with Saline. Apply Therahoney. Apply Moisture Barrier Paste periwound. Cover with Optifoam drsg. Change every 3 days and prn. Apply Betadine to Plantar L heel. Cover with Optifoam drsg. Change every 3 days and prn. Apply Cavilon Skin Barrier R heel. Cover with Optifoam drsg. Change every 7 days and prn. Reposition at least every 2hours or as tolerated Off-load heels with pillow. Nutritional optimization will follow with recs air mattress once off isolation DAILY ESTIMATED NEEDS: Needs based on Critical care, Wounds/ 53kg abw 22-28 kcals/kg 2645-6997 total kcals 1.25-2 g protein/kg 66-106 g total protein 25-30 mL/kg 2164-4477 total fluid mLs NUTRITION DIAGNOSIS: * Swallowing difficulty R/T dysphagia as evidenced by PEG dep, s/p intubation, on GT feeding. * Increased kcal/prot needs R/T wound healing as evidenced by pt admitted w/ evolving DTPI sacral wound and unstageable lt heel wound. CURRENT TF:Glucerna 1.2 @50ml/hr x22 hrs ENTERAL NUTRITION RECOMMENDATIONS: Glucerna 1.2 @ 50ml/hr x 22 hrs (hold 1 hr before and after Dilantin QD) to provide 1100ml, 1320kcal, 66g prot, 886ml free water * Maintain Glucerna 1.2 for carb control, BGs elevated. * Hold 1 hr before and after Dilantin med * HOB over 30 degrees/ without IVF, H20 flush of 150ml q 6 hrs FOR 24 HRS TF RUN WITHOUT DILANTIN (Dilantin currently held) : okay to keep the same TF rate of Glucerna 1.2 @ 50ml/hr x 24 hrs to provide 1200ml, 1440kcal, 72g prot 966ml free water -> will still meet 100% est kcal/prot needs ADDITIONAL RECOMMENDATIONS: * Per SNF record, ht is 60", wt is 149lbs (08/14/19) Rec calibrated bedscale wt * Rec NISS w/ TF: BGs elevated, now on Solumedrol * Wound healing: add Vit C 500mg QD + Giancarlo 1pkt BID via PEG * Monitor lytes, replete as needed . (2) Multi-infarct dementia (3) Uncontrolled seizures (4) History of CVA (cerebrovascular accident) (5) Acute encephalopathy (6) Aspiration pneumonia Assessment & Plan: Interval worsening of aeration with increasing interstitial and patchy bilateral airspace disease. Findings may be on the basis of worsening CHF/pulmonary edema although multifocal pneumonia must also be considered. Endotracheal tube injection is a central line remain in place. 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 worsening vent worse prognosis guarded (7) Respiratory failure (8) Suspected 2019 novel coronavirus infection Assessment & Plan: testing ? (9) Abdominal distension Assessment & Plan: noted +BM unlikely obstruction will monitor repeat KUB There is been improvement in dilatation of multiple loops of small and large bowel since the prior study consistent with resolving ileus. No obstructive pattern is identified. Sundeep Benavidez Sep 09, 2019 16:48
--- NOTE | 2019-09-09 17:00 | NUR ---
NURSE NOTES: Dr Nash present in the unit, updated on patient's respiratory status. Unable to wean off ventilator at this time. No new verbal orders received.
--- NOTE | 2019-09-09 18:00 | NUR ---
NURSE NOTES: Patient obtunded. Remains orally intubated, previous settings tolerated. GT is patent with TF Glucerna 1.2 at 50ml/hr, no residual noted. HOB elevated. Swartz catheter draining light jaclyn urine. Repositioned patient and provided oral care. Suctioned. No s/s of distress at this time. Will continue to monitor.
--- NOTE | 2019-09-09 19:06 | NUR ---
HAND-OFF: Report given to Jessica Stone RN. Endorsed plan of care.
--- NOTE | 2019-09-09 19:31 | NUR ---
RESPIRATORY NOTE: Received pt on AC 22, 450VT, 100%, PEEP +10. Pt intubated w/ ETT 7.5 @ 26cm lipline, secured by anchorfast. Pt sedated. B/S nasir. rhonchi, sxn minimal amounts of thick, pale-yellow secretions. Vent plugged into red outlet, ambubag at bedside. Pt in no apparent distress at this time. Will continue to monitor pt.
--- NOTE | 2019-09-09 19:40 | NUR ---
Nurse Note: Report received from LORENE Hernandez for continuity of care. Pt resting, nonverbal, no signs of distress. Pupils equal and reactive to light but sluggish. Afebrile. Pt intubated AC 22, TV 450, FiO2 100% and PEEP 10; satting at 97% O2. Pt is in afib, aware. RT IJ triple lumen, patent. Gtube noted and running Glucerna 1.2 at 50cc/hr. Swartz cath noted; patent. SZ precautions in place. Head of bed greater than 30 degrees. Pt seen by RT; suctioned by RT. All safety measures met; will continue to monitor.
[2019-09-09] MEDS: Dyna-Hex 2% Top Sol 2oz TOPIC SCH (20:22)
[2019-09-09] MEDS: Tamsulosin 0.4mg cap ORAL SCH (20:24)
--- NOTE | 2019-09-09 21:53 | Emergency Room Report ---
History of Present Illness General Chief Complaint: Fever Source: Medical Record, PMD Present Illness Allergies: Coded Allergies: No Known Allergies (Unverified , 02/29/16) COVID-19 Screening Contact w/high risk pt: Yes Recent Travel to affected area: No Experienced COVID-19 symptoms?: Yes COVID-19 symptoms experienced: Fever (T>100.4F or >38C), Shortness of Breath, Cough, Flu-Like Symptoms Nursing Documentation-PMH Past Medical History Deferred: Pt Cognitively Impaired Past Medical History: No History, Except For Hx Cardiac Problems: Yes - Acute [place] Hx COPD: Yes Hx Cancer: No Hx Gastrointestinal Problems: Yes - GT Hx Neurological Problems: Yes Hx Cerebrovascular Accident: Yes Hx Alzheimer's Disease: Yes Hx Seizures: Yes Physical Exam Vital Signs Date Time Temp Pulse Resp B/P (MAP) Pulse Ox O2 Delivery O2 Flow Rate FiO2 09/05/19 07:00 85 21 123/62 (82) 99 09/05/19 07:55 Mechanical Ventilator 100 100 09/05/19 08:00 98.6 Procedures CPR/Code Blue CPR/Code Blue Narrative I was called upstairs to a CODE BLUE upon arrival the patient has received epinephrine Patient was also provided with sodium bicarbonate by myself and calcium chloride patient has detectable Pulse and heart rate is at 120 rapid secondary evaluation reveals Extremely ill-appearing patient patient is edematous diffusely Review of medical records reveals worsening Bilateral pulmonary infiltrates patchy Patient's pupils are fixed dilated Patient also has airway intubation in place from previous The code was ended after the patient had palpable pulses and the care was handed back to the Tobacco Drummer Medical Decision Making Diagnostic Impression: Primary Impression: Suspected 2019 novel coronavirus infection Additional Impression: Respiratory failure Last Vital Signs Date Time Temp Pulse Resp B/P (MAP) Pulse Ox O2 Delivery O2 Flow Rate FiO2 09/09/19 21:17 92 22 100 09/09/19 20:23 126/78 09/09/19 19:28 99 Mechanical Ventilator 09/09/19 18:00 97.8 Disposition: ADMITTED INPATIENT Condition: Critical Referrals: NON PHYSICIAN (PCP) Lenin Parrish DO Sep 09, 2019 21:53
--- NOTE | 2019-09-09 21:55 | Emergency Room Report ---
History of Present Illness General Chief Complaint: Fever Source: Medical Record, PMD Present Illness Allergies: Coded Allergies: No Known Allergies (Unverified , 02/29/16) COVID-19 Screening Contact w/high risk pt: Yes Recent Travel to affected area: No Experienced COVID-19 symptoms?: Yes COVID-19 symptoms experienced: Fever (T>100.4F or >38C), Shortness of Breath, Cough, Flu-Like Symptoms Nursing Documentation-PMH Past Medical History Deferred: Pt Cognitively Impaired Past Medical History: No History, Except For Hx Cardiac Problems: Yes - Acute [place] Hx COPD: Yes Hx Cancer: No Hx Gastrointestinal Problems: Yes - GT Hx Neurological Problems: Yes Hx Cerebrovascular Accident: Yes Hx Alzheimer's Disease: Yes Hx Seizures: Yes Physical Exam Vital Signs Date Time Temp Pulse Resp B/P (MAP) Pulse Ox O2 Delivery O2 Flow Rate FiO2 09/05/19 07:00 85 21 123/62 (82) 99 09/05/19 07:55 Mechanical Ventilator 100 100 09/05/19 08:00 98.6 Procedures CPR/Code Blue CPR/Code Blue Narrative I was called back to a CODE BLUE fairly quickly after the initial code ended Upon arrival the patient has received epinephrine Patient shows asystole and has no palpable pulses Patient has fairly extensive CPR and CODE BLUE on initial intervention At this time all interventions appear futile Patient has no spontaneous respirations no palpable pulses I did ask regarding any further input from staff there is none and the patient was pronounced at 21:36 Medical Decision Making Diagnostic Impression: Primary Impression: Suspected 2019 novel coronavirus infection Additional Impression: Respiratory failure Last Vital Signs Date Time Temp Pulse Resp B/P (MAP) Pulse Ox O2 Delivery O2 Flow Rate FiO2 09/09/19 21:17 92 22 100 09/09/19 20:23 126/78 09/09/19 19:28 99 Mechanical Ventilator 09/09/19 18:00 97.8 Disposition: ADMITTED INPATIENT Condition: Critical Referrals: NON PHYSICIAN (PCP) Lenin Parrish DO Sep 09, 2019 21:55
--- NOTE | 2019-09-09 22:30 | NUR ---
Nurse Note: 2039: BP 191/109, HR 96, O2 88%, 27RR. Switched O2 site, replaced EKG leads for accurate reading. Suctioned pt, head of bed greater at 30 degrees. 2049: Pt O2 desatted, BP 85/22, asystole; code blue called. Compressions started by primary nurse, epinephrine administered via RT IJ triple lumen. 2052: Second epinephrine administered; asystole. RT Sylvester and Cecelia at pt side. LORENE Yang and primary nurse Jessica in room. 2055: Third epinephrine administered; asystole. No pulse felt; no pulse heard on Doppler. 2058: Fourth epinephrine administered; asystole. Compressions resumed. 2101: Fifth epinephrine administered; asystole. Blood sugar checked, 203. MD aware. 2107: Per ER MD orders; bicarb, calcium chloride ordered and administered. Femoral pulse heard on Doppler. Compressions held. Charge nurse contacted Dr. Nash; per MD, stat ABG, levophed, and chest xray ordered. 2109: ROSC. 2129: Asystole noted by RT Cecelia. Per ERMD, no orders for compressions. Epinephrine administered by primary RN. 2134: No pulse felt, no pulse heard on Doppler. Pupils dilated, no accommodation. 2139: Pt ; pronounced by ER . MD Saad; MD Yanely made aware. Left message to MD Margaret.
[2019-09-10] MEDS ORDERED: Amiodarone 200mg tab PEG SCH (09:00)
== END 2019-09-09 21:40 | disposition expired | DRG 870 ==
LOC: EDBD 16:52 → EMR 17:17 → ICU 17:30 → EDBEDREQSVC 18:22 → EDBEDREQ 18:22
DX: A41.89 Other specified sepsis (principal); J96.01 Acute respiratory failure with hypoxia; R65.21 Severe sepsis with septic shock; U07.1 COVID-19; J12.89 Other viral pneumonia; J15.212 Pneumonia due to Methicillin resistant Staphylococcus aureus; J69.0 Pneumonitis due to inhalation of food and vomit; G93.49 Other encephalopathy; J44.0 Chronic obstructive pulmonary disease with (acute) lower respiratory infection; J44.1 Chronic obstructive pulmonary disease with (acute) exacerbation; I69.954 Hemiplegia and hemiparesis following unspecified cerebrovascular disease affecting left non-dominant side; D68.59 Other primary thrombophilia; I48.92 Unspecified atrial flutter; E78.5 Hyperlipidemia, unspecified; I10 Essential (primary) hypertension; I25.10 Atherosclerotic heart disease of native coronary artery without angina pectoris; I25.2 Old myocardial infarction; F01.50 Vascular dementia, unspecified severity, without behavioral disturbance, psychotic disturbance, mood disturbance, and anxiety; G40.909 Epilepsy, unspecified, not intractable, without status epilepticus; D69.6 Thrombocytopenia, unspecified; I48.0 Paroxysmal atrial fibrillation; E87.5 Hyperkalemia; E87.6 Hypokalemia; L89.159 Pressure ulcer of sacral region, unspecified stage; R21 Rash and other nonspecific skin eruption
CPT/HCPCS: 31500; 36415; 36600; 71045; 74018; 80048; 80053; 80076; 80185; 80202; 81001; 81003; 82550; 82553; 82728; 82803; 83520; 83605; 83615; 83735; 83880; 84478; 84484; 85007; 85025; 85379; 86140; 86703; 86705; 86709; 86710; 86803; 87040; 87070; 87081; 87086; 87181; 87205; 87340; 92950; 93005; 94002; 94003; 96361; 96365; 96368; 96375; 99291; J2250; J3430; J7030; J7620; J8499